=== PATIENT | female | born 1970 | race Caucasian/White ===

== ENCOUNTER 2023-04-13 11:20 | Outpatient (OUT) | payer OTHER, SELFPAY ==
--- NOTE | 2023-04-13 11:56 | US_ITS ---
The [address] [address] Patient Name: GREG FIELD MRN: [id number] date: 1970 Sex: F Assigned Patient Location: US Current Patient Location: US Accession/Order Number: [id number] Exam Date: 04/13/2023 12:00 Report Date: 04/13/2023 13:01 At the request of: MAGDIEL HOLT Procedure: US soft tissue head and neck EXAM: US soft tissue head and neck HISTORY: Lump in neck R22.1 ; left neck lump and swelling COMPARISON: None. TECHNIQUE: Percutaneous ultrasound evaluation. FINDINGS: Several small lymph nodes within left side of neck. A larger 1.8 x 0.7 x 1.0 cm lymph node within the upper left neck has a normal fatty hilum and thin cortex; likely a normal jugulodigastric lymph node. No appreciable mass or fluid collection. IMPRESSION: 1. No acute or specific findings to account for patient's symptoms. Consider CT neck soft tissue with IV contrast study if symptoms persist. Electronically authenticated by: PASTOR ESPANA Date: 04/13/2023 13:01
== END 2023-04-13 11:21 ==
LOC: US 11:24
PROVIDERS: PCP Nurse Practitioner; Visit Provider Nurse Practitioner
DX: R22.1 Localized swelling, mass and lump, neck (principal)
CPT/HCPCS: 76536

== ENCOUNTER 2023-05-15 14:29 | Emergency (ER) | payer OTHER, SELFPAY ==
[2023-05-15] VITALS (23 sets, daily range): BP systolic 134–158; BP diastolic 64–85; PULSE 68–84; RESP 6–29; TEMP 36.8; O2SAT 93–98; BMI 47.6
--- NOTE | 2023-05-15 15:00 | ED_ITS ---
HPI - SOB/Dyspnea General Chief Complaint: Shortness of Breath/Dyspnea Stated Complaint: SHORTNESS OF BREATH Time Seen by Provider: 05/15/23 14:53 Source: patient Mode of arrival: walk-in Limitations: no limitations History of Present Illness HPI Narrative: this patient's here complaining increasing shortness of breath over the last 5-7 days. She states that her clinicians believe that she has slow Covid. She said she had three times last year. She also was under the care of a construction job cost estimator who released her and told her that she has sleep apnea. She is very compliant with her CPAP device at night time but despite using it she's had increasing sleepiness and some trouble with shortness of breath. The air conditions here in the [place] of been extreme this last week and she was outside earlier last week when the symptoms started worsening. She is not known to have a coronary insufficiency, states that she had an echocardiogram that was essentially normal. She does not have a coronary stents. She does have some discomfort in her left breast area that she doesn't know if its from carrying material or underlying coronary disease but she is not known to have any of that. She is a nonsmoker. States that she does have asthma history but can't use her inhalers as she is intolerant of the medication. She's not had purulent sputum or high shaking fevers and chills. Related Data Home Medications Medication Instructions Recorded Confirmed fluoxetine 40 mg capsule 40 mg PO DAILY 05/15/23 05/15/23 furosemide 20 mg tablet 10 mg PO DAILY 05/15/23 05/15/23 gabapentin 100 mg capsule 100 mg PO .hs 05/15/23 05/15/23 metformin 500 mg tablet,extended 500 mg PO DAILY 05/15/23 05/15/23 release 24 hr nabumetone 500 mg tablet 500 mg PO BID 05/15/23 05/15/23 pantoprazole 40 mg tablet,delayed 40 mg PO DAILY 05/15/23 05/15/23 release Allergies Allergy/AdvReac Type Severity Reaction Status Date / Time influenza A (H1N1) virus AdvReac Mild Verified 05/15/23 14:44 vaccine m-chani-split 2008 [From influenza A (H1N1)] Tetanus Vaccines and Toxoid AdvReac Mild Verified 05/15/23 14:44 PFSH PFSH Social History Smoking status: Never smoker Exam Narrative Exam Narrative: awake alert good historian does not appear ill freely ambulates in the room and hallway. I will signs as noted show pulse oximetry ninety-six ninety-seven percent on room air. HEENT shows no evidence of pallor or anemia. Head and neck are atraumatic and normocephalic. Respiratory I auscultated twice and she did not have a wheeze rales or rhonchi. Chest rises with symmetry. No evidence chest wall contusions or injury. Back shows no evidence of shingles or thoracic contusions or bruises or injury to the thoracic cage. Extremities show no evidence of edema there is no venous cords is no evidence of phlebitis. Peripheral perfusion seems adequate. Constitutional Vital Signs - 24 hr 05/15/23 14:40 05/15/23 14:53 05/15/23 14:39 Temperature 98.2 F Pulse Rate 81 Pulse Rate [Monitor] 84 Respiratory Rate 22 18 Blood Pressure Blood Pressure [Right Arm] 141/85 H Pulse Oximetry 98 97 98 Oxygen Delivery Method Room Air Room Air 05/15/23 14:40 05/15/23 14:40 05/15/23 14:50 Temperature Pulse Rate 81 84 Pulse Rate [Monitor] Respiratory Rate 29 H 20 Blood Pressure 141/85 H 134/75 H Blood Pressure [Right Arm] Pulse Oximetry 97 97 Oxygen Delivery Method Course Vital Signs Vital signs: Vital Signs Pulse Rate 81 05/15/23 14:39 Respiratory Rate 18 05/15/23 14:39 Pulse Oximetry 98 05/15/23 14:39 Temperature 98.2 F 05/15/23 14:40 Pulse Rate 84 05/15/23 14:40 Respiratory Rate 20 05/15/23 14:40 Blood Pressure 134/75 H 05/15/23 14:50 Pulse Oximetry 97 05/15/23 14:53 Oxygen Delivery Method Room Air 05/15/23 14:53 MDM - SOB/Dyspnea MDM Narrative Medical decision making narrative: patient's laboratory testing and x-ray imaging were reviewed with her. Radiologi thought there is some pulmonary vascular congestion all over her BNP is normal, there is no JVD, there is no leg edema, her lungs are clear to auscultation. Clinically I do not believe she has a congestive heart failure although there may be some cardiomegaly on this portable chest x-ray. A d-dimer was added to be sure that there is no likelihood even though she has low risk factors for pulmonary embolism the d-dimer was done and has in fact negative. I do not have a good etiology for this with the exception of recent environmental conditions with smoke in the community has been terrible and this all started after she had been outside in that environment. He do not believe she needs any supplemental oxygen or further workup at this time. She was dismissed recently from the care of our local pulmonary doctor. Discharge Plan Discharge Chief Complaint: Shortness of Breath/Dyspnea Clinical Impression: Acute dyspnea Patient Disposition: Home, Self-Care Time of Disposition Decision: 17:54 Prescriptions / Home Meds: No Action fluoxetine 40 mg capsule 40 mg PO DAILY pantoprazole 40 mg tablet,delayed release (DR/EC) 40 mg PO DAILY furosemide 20 mg tablet 10 mg PO DAILY gabapentin 100 mg capsule 100 mg PO .hs metformin 500 mg tablet extended release 24 hr 500 mg PO DAILY nabumetone 500 mg tablet 500 mg PO BID Instructions: Dyspnea (ED) Additional Instructions: follow-up with her primary care doctor, stay inside while air conditions are bad Stand Alone Forms: Portal Instructions Referrals: Melani Deras [Primary Care Provider] - 1 week
--- NOTE | 2023-05-15 15:02 | ECG_ITS ---
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
--- NOTE | 2023-05-15 15:02 | XR_ITS ---
The [address] [address] Patient Name: GREG FIELD MRN: [id number] date: 1970 Sex: F Assigned Patient Location: ER Current Patient Location: ER Accession/Order Number: [id number] Exam Date: 05/15/2023 15:10 Report Date: 05/15/2023 15:38 At the request of: JE VARELA Procedure: XR chest 1V EXAM: XR chest 1V HISTORY: pain COMPARISON: None. TECHNIQUE: AP portable study FINDINGS: There is cardiomegaly. Pulmonary vascularity is borderline prominent. Increased interstitial markings are noted bilaterally. Pleural spaces are clear. Bony structures are unremarkable. IMPRESSION: Cardiomegaly with borderline pulmonary vascular congestion and interstitial infiltrates in a pattern consistent with early CHF. Electronically authenticated by: Jasson CHRISTENSEN Date: 05/15/2023 15:38
[2023-05-15 15:39] LABS: Basophils Percent Auto 0.4 % (0.2-2.0); Eosinophils Absolute Auto 0.1 10^3/uL (0.0-0.7); Eosinophils Percent Auto 0.9 % (0.9-7.0); Hematocrit 40.2 % (36.0-48.0); Hemoglobin 13.6 g/dL (12.0-16.0); Immature Granulocytes Abs Auto 0.03 10^3/uL (0.00-0.03); Immature Granulocytes Pct Auto 0.4 % (0.0-0.5); Lymphocytes Absolute Auto 1.9 10^3/uL (1.2-3.8); Lymphocytes Percent Auto 28.9 % (20.5-60.0); Mean Corpuscular HGB Conc 33.8 g/dL (29.9-35.2); Mean Corpuscular Hemoglobin 30.2 pg (26.7-34.0); Mean Corpuscular Volume 89.1 fL (81.0-99.0); Mean Platelet Volume 10.3 fL (9.5-13.5); Monocytes Absolute Auto 0.4 10^3/uL (0.3-0.8); Monocytes Percent Auto 6.1 % (1.7-12.0); Neutrophils Absolute Auto 4.2 10^3/uL (1.4-6.5); Neutrophils Percent Auto 63.3 % (43.0-75.0); Platelet Count 306 10^3/uL (150-450); Red Blood Count 4.51 10^6/uL (4.20-5.40); Red Cell Distribution Width 12.6 % (11.0-15.0); White Blood Count 6.7 10^3/uL (4.0-11.0)
[2023-05-15 15:58] LABS: BUN Creatinine Ratio 13.6; Calcium 9.5 mg/dL (8.5-10.1); Carbon Dioxide 27.8 mmol/L (21.0-32.0); Chloride 103 mmol/L (98-107); Estimated GFR (African America >60 (>=60); Estimated GFR (Non-African Ame >60 (>=60); Glucose 137 mg/dL (74-106); Potassium 3.8 mmol/L (3.5-5.1); Sodium 138 mmol/L (136-145); Troponin I High Sensitivity <4.0 pg/mL (4.0-51.3)
== END 2023-05-15 18:15 | disposition home or self-care (01) ==
PROVIDERS: Emergency Provider Emergency Medicine Emergency Medical Services; PCP Nurse Practitioner
DX: R06.00 Dyspnea, unspecified (principal); Z86.16 Personal history of COVID-19; G47.30 Sleep apnea, unspecified; J45.909 Unspecified asthma, uncomplicated; Z79.899 Other long term (current) drug therapy; Z79.84 Long term (current) use of oral hypoglycemic drugs
CPT/HCPCS: 36415; 71045; 80048; 83880; 84484; 85025; 85378; 93005; 99285

== ENCOUNTER 2023-09-23 07:12 | Emergency (ER) | payer OTHER, SELFPAY ==
[2023-09-23 07:17] VITALS: BP 154/91; PULSE 108; RESP 24; TEMP 36.7; O2SAT 97; BMI 49.4
[2023-09-23] MEDS: LORAZEPAM 0.5 MG TABLET PO (07:21)
[2023-09-23 07:38] VITALS: BP 139/60; PULSE 109; RESP 24; O2SAT 100
--- NOTE | 2023-09-23 07:44 | ED_ITS ---
HPI - Anxiety General Chief Complaint: Anxiety Stated Complaint: GENERAL WEAKNESS Time Seen by Provider: 09/23/23 07:13 Source: patient Mode of arrival: ambulance History of Present Illness HPI narrative: Patient arrived by EMS for evaluation after having a panic attack this morning. She told EMS and our ED staff that she had a lot going on at home . She takes anti-depressant medication but nothing for breakthrough anxiety. She complained of cramping in her legs. She was anxious and hyperventilating on arrival. Related Data Home Medications Medication Instructions Recorded Confirmed fluoxetine 40 mg capsule 40 mg PO DAILY 05/15/23 05/15/23 furosemide 20 mg tablet 10 mg PO DAILY 05/15/23 05/15/23 gabapentin 100 mg capsule 100 mg PO .hs 05/15/23 05/15/23 metformin 500 mg tablet,extended 500 mg PO DAILY 05/15/23 05/15/23 release 24 hr nabumetone 500 mg tablet 500 mg PO BID 05/15/23 05/15/23 pantoprazole 40 mg tablet,delayed 40 mg PO DAILY 05/15/23 05/15/23 release Previous Rx's Medication Instructions Recorded hydralazine 25 mg tablet 25 mg PO Q12H PRN anxiety #20 tabs 09/23/23 hydroxyzine HCl 25 mg tablet 25 mg PO Q12H PRN anxiety #20 tabs 09/23/23 Allergies Allergy/AdvReac Type Severity Reaction Status Date / Time influenza A (H1N1) virus AdvReac Mild Verified 05/15/23 14:44 vaccine m-chani-split 2008 [From influenza A (H1N1)] Tetanus Vaccines and Toxoid AdvReac Mild Verified 05/15/23 14:44 [facility] Social History Smoking status: Never smoker Exam Narrative Exam Narrative: Nurses notes and vital signs reviewed and patient is not hypoxic. afebrile General: Anxious, hyperventilating and acutely distressed. Skin: Warm, dry, no pallor noted. Eye: Pupils are equal, round and EOMI. No scleral icterus. Cardiovascular: Regular Rate and Rhythm without murmur, gallop or rub. Respiratory: No accessory muscle use or respiratory distress. Lungs are clear to auscultation, no wheezing, rales or rhonchi Musculoskeletal: normal ROM Neurological: A&O x4. No cranial nerve dysfunction observed. No truncal ataxia. Moves all extremities. Sensation intact. Psychiatric: Cooperative and interactive. Anxious. Constitutional Vital Signs, click to edit/add: Last Vital Signs Temp 98.1 F 09/23/23 07:17 Pulse 109 H 09/23/23 07:38 Resp 24 09/23/23 07:38 BP 139/60 09/23/23 07:38 Pulse Ox 100 09/23/23 07:38 O2 Del Method Room Air 09/23/23 07:17 Course Vital Signs Vital signs: Vital Signs Temperature 98.1 F 09/23/23 07:17 Pulse Rate 108 H 09/23/23 07:17 Respiratory Rate 24 09/23/23 07:17 Blood Pressure 154/91 H 09/23/23 07:17 Pulse Oximetry 97 09/23/23 07:17 Oxygen Delivery Method Room Air 09/23/23 07:17 Temperature 98.1 F 09/23/23 07:17 Pulse Rate 109 H 09/23/23 07:38 Respiratory Rate 24 09/23/23 07:38 Blood Pressure 139/60 09/23/23 07:38 Pulse Oximetry 100 09/23/23 07:38 Oxygen Delivery Method Room Air 09/23/23 07:17 MDM - Anxiety MDM Narrative Medical decision making narrative: The patient was given ativan orally. BMP was normal. Patient felt better after ED treatment and was discharged home with prescription for hydroxyzine. The hydralazine was incorrectly sent to pharmacy - I called and notified the pharmacist of the mistake and that the hydralazine was not to be given. Lab Data Attestation: I reviewed the patient's lab results. Labs: Lab Results 09/23/23 Range/Units 07:29 Sodium 138 (136-145) mmol/L Potassium 3.7 (3.5-5.1) mmol/L Chloride 101 (98-107) mmol/L Carbon Dioxide 23.1 (21.0-32.0) mmol/L Anion Gap 17.6 BUN 11.0 (7.0-18.0) mg/dL Creatinine 0.82 (0.55-1.02) mg/dL Est GFR ( Amer) >60 (>=60) Est GFR (Non-Af Amer) >60 (>=60) BUN/Creatinine Ratio 13.4 Glucose 252 H (74-106) mg/dL Calcium 8.9 (8.5-10.1) mg/dL Discharge Plan Discharge Chief Complaint: Anxiety Clinical Impression: Acute anxiety Patient Disposition: Home, Self-Care Time of Disposition Decision: 08:39 Prescriptions / Home Meds: New hydralazine 25 mg tablet 25 mg PO Q12H PRN (Reason: anxiety) Qty: 20 0RF hydroxyzine HCl 25 mg tablet 25 mg PO Q12H PRN (Reason: anxiety) Qty: 20 0RF No Action fluoxetine 40 mg capsule 40 mg PO DAILY pantoprazole 40 mg tablet,delayed release (DR/EC) 40 mg PO DAILY furosemide 20 mg tablet 10 mg PO DAILY gabapentin 100 mg capsule 100 mg PO .hs metformin 500 mg tablet extended release 24 hr 500 mg PO DAILY nabumetone 500 mg tablet 500 mg PO BID Instructions: Anxiety (ED) Stand Alone Forms: Portal Instructions [facility]errals: [facility] [Physician] - As soon as possible Melani Deras NP [Primary Care Provider] - 1 week
[2023-09-23 07:50] LABS: Anion Gap 17.6; BUN Creatinine Ratio 13.4; Calcium 8.9 mg/dL (8.5-10.1); Carbon Dioxide 23.1 mmol/L (21.0-32.0); Chloride 101 mmol/L (98-107); Estimated GFR (African America >60 (>=60); Estimated GFR (Non-African Ame >60 (>=60); Glucose 252 mg/dL (74-106); Potassium 3.7 mmol/L (3.5-5.1); Sodium 138 mmol/L (136-145)
[2023-09-23 08:31] VITALS: BP 141/68; PULSE 96; RESP 20; O2SAT 100
== END 2023-09-23 08:48 | disposition home or self-care (01) ==
PROVIDERS: Emergency Provider Emergency Medicine; PCP Nurse Practitioner
DX: F41.9 Anxiety disorder, unspecified (principal); Z79.899 Other long term (current) drug therapy; Z79.84 Long term (current) use of oral hypoglycemic drugs
CPT/HCPCS: 36415; 80048; 99283

== ENCOUNTER 2024-05-19 12:40 | Emergency (ER) | payer OTHER, SELFPAY ==
[2024-05-19] VITALS (24 sets, daily range): BP systolic 176; BP diastolic 104; PULSE 63–75; TEMP 36.8; O2SAT 94–100; BMI 49.4
--- OUTSIDE RECORDS SUMMARY | 2024-05-19 12:45 | XMS_ITS | CCD ---
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 Name Role Phone Unavailable Primary Care Provider UnavailSelene Garrison Unavailable Rose De Unavailable Unavailable Primary Care Provider UnavailRicardo Sands Attending Unavailable Ricardo Ricardo Admitting Unavailable NadMahesh walters Primary Care Unavailable Unavailable Primary Care Provider Unavailcolby hua AICHHOLZ, FEATHER MIXER MAGDIEL Primary Care Unavailable AICHHOLZ, FEATHER MIXER MAGDIEL Attending Unavailable AICHHOLZ, FEATHER MIXER MAGDIEL Admitting Unavailable AICHHOLZ, FEATHER MIXER MAGDIEL Consulting Unavailable AICHHOLZ, FEATHER MIXER MAGDIEL Consulting Unavailable AICHHOLZ, FEATHER MIXER MAGDIEL Attending Unavailable AICHHOLZ, FEATHER MIXER MAGDIEL Admitting Unavailable AICHHOLZ, FEATHER MIXER MAGDIEL Primary Care Unavailable AICHHOLZ, FEATHER MIXER MAGDIEL Primary Care Unavailable LEES ., DR RADHA Hua Attending Unavailable LEES ., DR RADHA Hua Admitting Unavailable LEES .DR RADHA Consulting Unavailable MARCOS NEWBERRY Consulting Unavailable SERAFIN, MAGDIEL Consulting Unavailable VANESSA MARTINEZ Unavailable AICHHOLZ, FEATHER MIXER MAGDIEL Admitting Unavailable AICHHOLZ, FEATHER MIXER MAGDIEL Primary Care Unavailable AICHHOLZ, FEATHER MIXER MAGDIEL Attending Unavailable DR VANESSA PRESLEY V Consulting Unavailable AICHHOLZ, FEATHER MIXER MAGDIEL Consulting Unavailable AICHHOLZ, FEATHER MIXER MAGDIEL Admitting Unavailable AICHHOLZ, FEATHER MIXER MAGDIEL Primary Care Unavailable AICHHOLZ, FEATHER MIXER MAGDIEL Consulting Unavailable AICHHOLZ, FEATHER MIXER MAGDIEL Attending Unavailable AICHHOLZ, FEATHER MIXER MAGDIEL Attending Unavailable AICHHOLZ, FEATHER MIXER MAGDIEL Admitting Unavailable DR VANESSA PRESLEY V Consulting Unavailable AICHHOLZ, FEATHER MIXER MAGDIEL Primary Care Unavailable AICHHOLZ, FEATHER MIXER MAGDIEL Consulting Unavailable AICHHOLZ, FEATHER MIXER MAGDIEL Admitting Unavailable AICHHOLZ, FEATHER MIXER MAGDIEL Consulting Unavailable AICHHOLZ, FEATHER MIXER MAGDIEL Attending Unavailable AICHHOLZ, FEATHER MIXER MAGDIEL Primary Care Unavailable SAMSA ., SLADE Attending Unavailable SAMSA ., SLADE Admitting Unavailable AICHHOLZ, FEATHER MIXER MAGDIEL Primary Care Unavailable DR PASTOR ESPANA Consulting Unavailable SAMSA ., SLADE Consulting Unavailable AICHHOLZ, FEATHER MIXER MAGDIEL Admitting Unavailable AICHHOLZ, FEATHER MIXER MAGDIEL Consulting Unavailable AICHHOLZ, FEATHER MIXER MAGDIEL Attending Unavailable AICHHOLZ, FEATHER MIXER MAGDIEL Primary Care Unavailable AICHHOLZ, FEATHER MIXER MAGDIEL Primary Care Unavailable PAY ., DR BECK Attending Unavailable PAY ., DR BECK Admitting Unavailable PAY ., DR BECK Consulting Unavailable GRECHNY ., KARTHIKEYAN KLINE Consulting Unavailabl e AICHHOLZ, FEATHER MIXER MAGDIEL Primary Care Unavailable ANTONIA ., KARTHIKEYAN KLINE Consulting Unavailabl e LENIN ., ALEJANDRA Attending Unavailable LENIN ., ALEJANDRA Admitting Unavailable LENIN ., ALEJANDRA Admitting Unavailable AICHHOLZ, FEATHER MIXER MAGDIEL Primary Care Unavailable MARCOS NEWBERRY Consulting Unavailable LENIN ., ALEJANDRA Attending Unavailable LENIN ., ALEJANDRA Consulting Unavailable PROVIDER, UNKNOWN Attending Unavailable PROVIDER, UNKNOWN Admitting Unavailable PATIENT, SELF Referring Unavailable FRACISCO SKAGGS Attending Unavailable Unavailable Primary Care Provider UnavailRAMONE Andrade Attending Unavailable KRISTEN BRONSON Attending Unavailable EBEN DUQUE Attending Unavailab le AICHHOLZ, MAGDIEL Referring Unavailable RAMONE LORENZANA Attending Unavailable KRISTEN BRONSON Attending Unavailable RAMONE LORENZANA Attending Unavailable RAMONE LORENZANA Referring Unavailable AICHHOLZ, MAGDIEL Attending Unavailable JOSH PARKINSON Attending Unavailable RAMONE LORENZANA Attending Unavailable AICHHOLZ, MAGDIEL Attending Unavailable Allergies Allergy Classification Reported Allergen(s) Allergy Type Date of Onset Reaction(s) Facility (10 sources) Tetanus vaccine; Translations: [TETANUS TOXOIDS] Propensity to adverse reactions to drug 2 Asthma [facility] Work Phone: (1 source) Allopurinol Drug Allergy 3 [facility] Repository (1 source) TETANUS AND DIPHTHERIA TOXOIDS; Translations: [TETANUS AND DIPHTHERIA TOXOIDS] Propensity to adverse reactions to drug (disorder) 2 [facility] Repository Medications Current Medications Medication Drug Class(es) Dates Sig (Normalized) Sig (Original) [id number] 200 actuat albuterol 0.09 mg/actuat metered dose inhaler (3 sources) beta2-Adrenergic Agonist Start: 06-26-2021 take 2 puff(s) by inhalation every four hours as needed Albuterol Sulfate HFA 108 (90 Base) MCG/ACT 2 puffs as needed Inhalation every 4 hrs Jun, Active Start: 06-26-2021 take 2 puff(s) by in halation every four hours as needed Albuterol Sulfate HFA 108 (90 Base) MCG/ACT 2 puffs as needed Inhalation every 4 hrs Jun, Active take 2 puff(s) by in halation every four hours for wheezing albuterol HFA 90 mcg/act inhaler Inhale 2 puffs every 4 (four) hours if needed for wheezing 0 Active aspirin 81 mg delayed release oral tablet (5 sources) Platelet Aggregation Inhibitor, Nonsteroidal Anti-inflammatory Drug take 1 tablet by mouth once daily aspirin 81 MG enteric coated tablet Take 81 mg by mouth daily. 0 Active Benadryl Allergy (2 sources) Benadryl Allergy Active biotin 10 mg oral capsule (4 sources) Start: 09-28-20 End: 12-27-19 24 take 1 capsule by mouth in the morning biotin 10 MG capsule Indications: Myalgia , Numbness and tingling , Weakness Take 1 capsule (10 mg) by mouth in the morning and 1 capsule (10 mg) before bedtime. 60 capsule 2 09/28/2023 12/27/2023 Active cetirizine hydrochloride 10 mg oral tablet (10 sources) Histamine-1 Receptor Antagonist take 1 tablet by mouth in the morning cetirizine (ZyrTEC) 10 MG tablet Take 10 mg by mouth in the morning. 0 Active ZyrTEC Allergy A ctive cholecalciferol 0.025 mg oral capsule (1 source) Vitamin D take 1 capsule by mouth once daily cholecalciferol (Vitamin D-3) 25 MCG (1000 UT) capsule Take 1 capsule every day by oral route. 0 Active cyproheptadine hydrochloride 4 mg oral tablet (1 source) Start: End: take 0.5 tablet by mouth in the morning cyproheptadine (Periactin) 4 MG tablet Indications: Dizziness Take 0.5 tablets (2 mg) by mouth in the morning and 0.5 tablets (2 mg) before bedtime. 30 tablet 2 12/07/2023 03/06/2024 Active docusate sodium 100 mg oral capsule (4 sources) take 1 capsule by mouth in the morning docusate sodium (Colace) 100 MG capsule Indications: Constipation Take 100 mg by mouth in the morning. 0 Active [id number] 0.3 ml EPINEPHrine 1 mg/ml auto-injector (4 sources) alpha-Adrenergic Agonist, beta-Adrenergic Agonist, Catecholamine EPINEPHrine (Epipen) 0.3 MG/0.3ML injection syringe Inject 1 Syringe as directed 1 (one) time Inject into upper leg. Call 911 after use. 0 Active FLUoxetine 40 mg oral capsule (11 sources) Serotonin Reuptake Inhibitor take 1 capsule by mouth in the morning FLUoxetine (PROzac) 40 MG capsule Indications: Depressive Phase Bipolar Mood Disorder Take 40 mg by mouth in the morning. 0 Active take 1 capsule by mouth once nam ly fluoxetine (PROZAC) 20 MG capsule Take 20 mg by mouth daily. 0 Active PROzac Active furosemide 20 mg oral tablet (6 sources) Loop Diuretic take 1 tablet by mouth once daily as needed furosemide (Lasix) 20 MG tablet Indications: Hypertension Take 20 mg by mouth Daily as needed 0 Active take 10 mg by mouth in the [facility] furosemide (Lasix) 10 MG/ML solution Indications: Hypertension Take 10 mg by mouth in the morning. 0 Active Lasix Active gabapentin 100 mg oral capsule (6 sources) Anti-epileptic Agent take 1 capsule by mouth at bedtime gabapentin (Neurontin) 100 MG capsule Indications: Neuropathic Pain Take 100 mg by mouth at bedtime. 0 Active Gabapentin Activ e hydrOXYzine hydrochloride 25 mg oral tablet (1 source) Antihistamine Start: 09-23-2023 take 1 tablet by mouth every twelve hours for anxiety hydrOXYzine HCl (Atarax) 25 MG tablet take 1 tablet by mouth every 12 hours if needed for anxiety 0 09/23/2023 Active lamoTRIgine (1 source) Mood Stabilizer, Anti-epileptic Agent lamoTRIgine Active LORazepam 0.5 mg oral tablet (1 source) Benzodiazepine take 1 tablet by mouth every six hours as needed LORazepam (Ativan) 0.5 MG tablet Take 0.5 mg by mouth every 6 (six) hours if needed. 0 Active Magnesium (2 sources) Magnesium Active magnesium oxide 400 mg oral tablet (4 sources) Start: 09-28-2023 End: 12-19-2024 take 1 tablet by mouth at bedtime magnesium oxide (Mag-Ox) 400 mg tablet Indications: Myalgia , Numbness and tingling , Weakness Take 1 tablet (400 mg) by mouth at bedtime 90 tablet 3 12/20/2023 12/19/2024 Active 24 hr metFORMIN hydrochloride 500 mg extended release oral tablet (12 sources) Biguanide take 1 tablet by mouth every twenty-four hours in the morning metFORMIN XR (Glucophage-XR) 500 MG 24 hr tablet Take 500 mg by mouth in the morning. 0 Active take 1 tablet by mouth once nelda y metformin (GLUCOPHAGE-XR) 500 MG XR tablet Take 500 mg by mouth daily. 0 Active metFORMIN HCl Ac tive nabumetone 500 mg oral tablet (12 sources) Nonsteroidal Anti-inflammatory Drug Start: 12-11-2023 End: 01-10-2024 take 1 tablet by mouth twice daily as needed for pain nabumetone (Relafen) 500 MG tablet Indications: Other chronic pain Take 1 tablet (500 mg) by mouth 2 (two) times a day as needed for moderate pain 60 tablet 1 12/11/2023 01/10/2024 Active Nabumetone Activ e take 1 tablet by mouth twice nam ly nabumetone 500 MG tablet Take 500 mg by mouth 2 times daily. 0 Active Nabumetone Not-T aking Naltrexone (4 sources) Opioid Antagonist Start: 12-06-2023 End: 01-05-2024 Naltrexone HCl powder Indications: Idiopathic progressive neuropathy , Weakness 3 mg at bedtime 30 g 11 12/06/2023 01/05/2024 Active nystatin [id number] unt/ml oral suspension (1 source) Polyene Antifungal Start: 05-31-2022 take 4 mL by mouth four times daily Nystatin [id number] UNIT/ML 4 ml swish and spit Mouth/Throat Four times a day for 14 days May, Active pantoprazole 40 mg delayed release oral tablet (12 sources) Proton Pump Inhibitor take 1 tablet by mouth in the morning pantoprazole (ProtoNix) 40 MG EC tablet Take 40 mg by mouth in the morning. 0 Active Protonix Active predniSONE 20 mg oral tablet (5 sources) Start: 05-31-2022 take 1 tablet by beth th every twenty-four hours prednisone 20 MG 1 tablet Orally daily for 3 days May, Active Start: 09-10-2021 take 1 tablet by beth th every twelve hours predniSONE 20 MG 1 tablet Orally bid for 5 day(s) Aug, Active vitamin B12 (2 sources) Vitamin B12 Vitamin B12 Acti ve Completed/Discontinued Medications Medication Drug Class(es) Dates Sig (Normalized) Sig (Original) celecoxib (3 sources) Nonsteroidal Anti-inflammatory Drug CeleBREX Not-Taki ng CeleBREX Active dextromethorphan hydrobromide 1.5 mg/ml / pyrilamine maleate 1.5 mg/ml oral solution (3 sources) Uncompetitive D-oikfsi-O-aspartate Receptor Antagonist, Sigma-1 Agonist Start: 06-26-2021 [place] DM 7.5-7.5 MG/5ML 10 ml Orally every 6-8 hours as needed for 8 days Jun, Not-Taking methylPREDNISolone 4 mg oral tablet (3 sources) Corticosteroid Start: 06-26-2021 methylPREDNISolone 4 MG as directed Orally Once a day for 6 days Jun, Not-Taking Problems Active Problems Problem Classification Problem Date Documented Date Episodic/Chronic Abdominal pain (4 sources) Unspecified abdominal pain; Translations: [UNSPECIFIED ABDOMINAL PAIN] Onset: 03-21-2023 Episodic Anxiety disorders (10 sources) Anxiety; Translations: [Anxiety disorder, unspecified] Onset: 05-19-2022 01-10-2022 Chronic Asthma (4 sources) Asthma; Translations: [Unspecified asthma, uncomplicated] Onset: 11-28-2023 11-28-2023 Chronic Esophageal disorders (4 sources) Gastroesophageal reflux disease; Translations: [Gastro-esophageal reflux disease without esophagitis] Onset: 03-14-2019 09-26-2023 Chronic Essential hypertension (5 sources) Essential (primary) hypertension; Translations: [Essential hypertension] Onset: 03-14-2019 09-26-2023 Chronic Genitourinary symptoms and ill-defined conditions (3 sources) Unspecified symptoms and signs involving the genitourinary system; Translations: [UNS SYMPTOMS SIGNS INVLV SYSTEM] Onset: 01-23-2023 Episodic Gout and other crystal arthropathies (1 source) Gout, unspecified; Translations: [GOUT UNSPECIFIED] Onset: 01-25-2023 Chronic Joint disorders and dislocations; trauma-related (4 sources) Chondromalacia of left patella; Translations: [Chondromalacia patellae, left knee] Onset: 09-26-2023 09-26-2023 Chronic Joint disorders and dislocations; trauma-related (8 sources) Tear of medial meniscus of knee; Translations: [Other tear of medial meniscus, current injury, left knee, initial encounter] Onset: 03-14-2019 09-26-2023 Episodic Malaise and fatigue (1 source) Chronic fatigue, unspecified; Translations: [CHRONIC FATIGUE UNSPECIFIED] Onset: 01-25-2023 Chronic Malaise and fatigue (10 sources) Weakness; Translations: [Other fatigue] Onset: 05-04-2022 Episodic Mood disorders (9 sources) Bipolar II disorder, most recent episode major depressive; Translations: [Bipolar II disorder] Onset: 03-14-2019 07-24-2023 Chronic Nutritional deficiencies (2 sources) Vitamin D deficiency, unspecified; Translations: [Vitamin D deficiency, unspecified] Onset: 05-23-2023 Chronic Osteoarthritis (4 sources) Osteoarthrosis of the carpometacarpal joint of the thumb; Translations: [Osteoarthritis of first carpometacarpal joint, unspecified] Onset: 03-14-2019 09-26-2023 Chronic Other aftercare (1 source) Other long goods drier (current) drug therapy; Translations: [OTH SHELTER CURRENT DRUG THERAPY] Onset: 01-25-2023 Episodic Other aftercare (1 source) custodial (current) use of oral hypoglycemic drugs; Translations: [SECURITY AND COMPLIANCE 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 MANAGER USE ORAL HYPOGLYCEMIC DX] Onset: 01-25-2023 Episodic Other connective tissue disease (5 sources) Muscle pain; Translations: [Myalgia, unspecified site] Onset: 09-28-2023 09-28-2023 Episodic Other connective tissue disease (1 source) Cramp; Translations: [Cramp and spasm] Onset: 12-21-2023 12-21-2023 Episodic Other infections; including parasitic (2 sources) Post-viral disorder; 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 Other lower respiratory disease (1 source) Dyspnea; Translations: [Shortness of breath] Episodic Other lower respiratory disease (1 source) Other forms of dyspnea; Translations: [Other respiratory abnormalities] Onset: 12-21-2023 12-21-2023 Episodic Other nervous system disorders (4 sources) Chronic pain; Translations: [Other chronic pain] Onset: 09-26-2023 09-26-2023 Chronic Other nervous system disorders (4 sources) Neuropathy; Translations: [Idiopathic progressive neuropathy] Onset: 09-28-2023 09-28-2023 Chronic Other nervous system disorders (5 sources) Numbness and tingling sensation of skin; Translations: [Anesthesia of skin] Onset: 09-28-2023 09-28-2023 Episodic Other non-traumatic joint disorders (4 sources) Pain in left knee; Translations: [Pain in joint, lower leg] Onset: 09-26-2023 09-26-2023 Episodic Other nutritional; endocrine; and metabolic disorders (1 source) Morbid (severe) obesity due to excess calories; Translations: [MORBID SEVERE OBES D/T EXCESS ELENA] Onset: 01-25-2023 Chronic Other nutritional; endocrine; and metabolic disorders (1 source) Body mass index (BMI) 45.0-49.9, adult; Translations: [BODY MASS INDEX BMI 45.0-49.9 ADULT] Onset: 01-25-2023 Chronic Other nutritional; endocrine; and metabolic disorders (4 sources) Morbid obesity; Translations: [Morbid (severe) obesity due to excess calories] Onset: 03-14-2019 09-26-2023 Chronic Other skin disorders (1 source) Localized swelling, mass and lump, neck; Translations: [LOCALIZED SWELLING MASS AND LUMP NECK] Onset: 01-16-2023 Episodic Residual codes; unclassified (4 sources) Obstructive sleep apnea (adult) (pediatric); Translations: [OBSTRUCTIVE SLEEP APNEA] Onset: 07-19-2022 Chronic Residual codes; unclassified (1 source) Idiopathic hypersomnia with long sleep time; Translations: [IDIO HYPERSOMNIA W/LONG SLEEP TIME] Onset: 07-24-2022 Chronic Spondylosis; intervertebral disc disorders; other back problems (5 sources) Sciatica, left side; Translations: [Lumbar radiculopathy] Onset: 11-23-2023 Episodic Unclassified (1 source) R10.11 - Right upper quadrant pain; Translations: [R10.11 - Right upper quadrant pain] Onset: 12-28-2021 Unclassified (1 source) PERSONAL HISTORY OF COVID-19; Translations: [PERSONAL HISTORY OF COVID-19] Onset: 01-25-2023 Unclassified (1 source) CONTACT W/AND (SUSP) EXPOS COVID-19; Translations: [CONTACT W/AND (SUSP) EXPOS COVID-19] Onset: 05-19-2022 Unclassified (1 source) Post covid-19 condition, unspecified; Translations: [Post covid-19 condition, unspecified] Onset: 07-05-2022 Past or Other Problems Problem Classification Problem Date Documented Da te Episodic/Chronic Diabetes mellitus without complication (8 sources) Hyperglycemia, unspecified; Translations: [Prediabetes] Onset: 03-14-2019 Episodic Fluid and electrolyte disorders (2 sources) Hypokalemia; Translations: [Dehydration] Onset: 07-04-2022 Episodic Immunizations and screening for infectious disease (1 source) Contact with and (suspected) exposure to other viral communicable diseases; Translations: [Contact with and (suspected) exposure to other viral communicable diseases Z20.828] Onset: 09-10-2021 Resolved: 09-10-2021 Episodic Mycoses (1 source) Candidal stomatitis Onset: 05-31-2022 Resolved: 05-31-2022 Episodic Nonspecific chest pain (6 sources) Chest pain; Translations: [Chest pain, unspecified] Onset: 07-05-2022 Episodic Other aftercare (1 source) terminal system operator (current) use of aspirin; Translations: [SECURITY AND COMPLIANCE PROJECT MANAGER CURRENT USE OF ASPIRIN] Onset: 07-04-2022 Episodic Other female genital disorders (4 sources) Lesion of cervix; Translations: [Noninflammatory disorder of cervix uteri, unspecified] Onset: 03-14-2019 09-26-2023 Episodic Other gastrointestinal disorders (4 sources) Change in bowel habit; Translations: [CHANGE IN BOWEL HABIT] Onset: 06-04-2022 Episodic Other injuries and conditions due to external causes (4 sources) At low risk for fall; Translations: [History of falling] Onset: 03-14-2019 09-26-2023 Episodic Other lower respiratory disease (4 sources) Other nonspecific abnormal finding of lung field; Translations: [OTH NONSPECIFIC ABN FIND LNG FIELD] Onset: 08-09-2022 Episodic Other lower respiratory disease (5 sources) Dyspnea, unspecified; Translations: [DYSPNEA UNSPECIFIED] Onset: 07-11-2022 Episodic Other nervous system disorders (4 sources) Paresthesia of skin; Translations: [PARESTHESIA OF SKIN] Onset: 06-30-2022 Episodic Other non-traumatic joint disorders (4 sources) Hip pain; Translations: [Pain in unspecified hip] Onset: 03-14-2019 09-26-2023 Episodic Other non-traumatic joint disorders (4 sources) Multiple joint pain; Translations: [Pain in unspecified joint] Onset: 03-14-2019 09-26-2023 Episodic Other upper respiratory infections (1 source) Acute sinusitis, unspecified; Translations: [Acute sinusitis, recurrence not specified, unspecified location J01.90] Onset: 09-10-2021 Resolved: 09-10-2021 Episodic Residual codes; unclassified (4 sources) Edema of lower extremity; Translations: [Localized edema] Onset: 03-14-2019 09-26-2023 Episodic Unclassified (1 source) Persistent cough for 3 weeks or longer R05.3 Onset: 05-31-2022 Resolved: 05-31-2022 Results Test Name Value Interpretation Reference Range Facility Follow-Upon 05-23-2023 Follow-Up [id number] Lu Cancino 1970 F Date Provider Department Center 05/23/2023 [id number] SKAGGS [facility] Josel[facility] Family History Family history unknown: Yes Level of Service:00037 [place] OFFICE/OUTPATIENT ESTABLISHED MOD MDM 30-39 MIN Reason for Visit and Comments: Follow-up [229228] - Flare up Normal [facility] XR KUB 1 VIEWon 03-22-2023 XR KUB 1 VIEW EXAMINATION: XR KUB 1 VIEW HISTORY: Abdominal pain COMPARISON: No relevant comparison available. FINDINGS: KIDNEY/URETER - RIGHT: No visible renal or ureteral calcifications. KIDNEY/URETER - LEFT: No visible renal or ureteral calcifications. PELVIS: No visible ureteral calcifications. Any visible calcifications favor phleboliths. BOWEL: No abnormal dilation or deviation. BONES: No acute abnormality. OTHER: Negative. No abnormal gaseous collections. IMPRESSION: No acute abnormality Electronically authenticated by: VANESSA PRESLEY Date: 2023-03-22 07:45 Normal [facility] UA RANDOM W/MICROSCOPICon BACTERIA TRACE Abnormal NONE SEEN [facility] Comment on above: Performed By: #### U AMIC #### [facility] [address] [address] [address] Bertram Paulino Bilirubin Ql (U) Negative Normal NEGATIVE [facility] Comment on above: Performed By: #### U AMIC #### [facility] [address] [address] [address] Bertram Paulino CAST NONE SEEN Normal NONE SEEN [facility] Comment on above: Performed By: #### U AMIC #### [facility] [address] [address] [address] Bertram Paulino Clarity (U) CLEAR Normal CLEAR [facility] Comment on above: Performed By: #### U AMIC #### [facility] [address] [address] [address] Bertram Paulino Color (U) LT. YELLOW Normal YELLOW [facility] Comment on above: Performed By: #### U AMIC #### [facility] [address] [address] [address] Bertram Paulino Crystals LM Nom (Urine sed) NONE SEEN Normal NONE SEEN [facility] Comment on above: Performed By: #### U AMIC #### [facility] [address] [address] [address] Bertram Paulino Epithelial cells LM Ql (Urine sed) RARE Normal NONE SEEN /RARE [facility] Comment on above: Performed By: #### U AMIC #### [facility] [address] [address] [address] Bertram Paulino Glucose Ql (U) Negative Normal NEGATIVE [facility] Comment on above: Performed By: #### U AMIC #### [facility] [address] [address] [address] Bertram Paulino Hemoglobin Ql (U) Negative Normal NEGATIVE [facility] Comment on above: Performed By: #### U AMIC #### [facility] [address] [address] [address] Bertram Paulino Ketones Ql (U) Negative Normal NEGATIVE [facility] Comment on above: Performed By: #### U AMIC #### [facility] [address] [address] [address] Bertram Paulino LEUKOCYTES Negative Normal NEGATIVE [facility] Comment on above: Performed By: #### U AMIC #### [facility] [address] [place] [address] Dr. Bertram Paulino MUCOUS NONE SEEN Normal NONE SEEN [facility] Comment on above: Performed By: #### U AMIC #### [facility] [address] [address] [address] Bertram Paulino Nitrite Ql (U) Negative Normal NEGATIVE [facility] Comment on above: Performed By: #### U AMIC #### [facility] [address] [place] [address] Dr. Bertram Paulino pH (U) 8.5 [pH] Normal 5-9 [facility] Comment on above: Performed By: #### U AMIC #### [facility] [address] [place] [address] Dr. Bertram Paulino RBC 0-2 Normal 0-2 [facility] Comment on above: Performed By: #### U AMIC #### [facility] [address] [address] [address] Bertram Paulino SPEC GRAVITY 1.015 Normal 1.005-<=1.025 [facility] Comment on above: Performed By: #### U AMIC #### [facility] [address] [address] [address] Bertram Paulino UA PROTEIN Negative Normal NEGATIVE/ TRACE [facility] Comment on above: Performed By: #### U AMIC #### [facility] [address] [address] [address] Bertram Paulino Urobilinogen Qn (U) 0.2 {Yazmin'U}/dL Normal 0.2 - 1. 0 [facility] Comment on above: Performed By: #### U AMIC #### [facility] [address] [place] [address] Dr. Bertram Paulino WBC NONE SEEN Normal NONE SEEN [facility] Comment on above: Performed By: #### U AMIC #### [facility] [address] [place] [address] Dr. Bertram Paulino CBC AUTO DIFFon 01-23-2023 BASO # 0.0 103/ul Normal 0.0-0.1 [facility] Comment on above: Performed By: #### C MP, LIPID, TSH #### [facility] [address] [place] [address] Dr. Bertram Paulino Basophils/100 WBC (Bld) 0.5 % Normal 0.2-2.0 [facility] Comment on above: Performed By: #### C MP, LIPID, TSH #### [facility] [address] [place] [address] Dr. Bertram Paulino EO # 0.1 103/ul Normal 0.0-0.7 [facility] Comment on above: Performed By: #### C MP, LIPID, TSH #### [facility] [address] [place] [address] Dr. Bertram Paulino Eosinophils/100 WBC (Bld) 1.2 % Normal 0.9-7.0 [facility] Comment on above: Performed By: #### C MP, LIPID, TSH #### [facility] [address] [place] [address] Dr. Bertram Paulino Erythrocyte distribution width (RBC) [Ratio] 12.8 % Normal 11.0-15.0 [facility] Comment on above: Performed By: #### C MP, LIPID, TSH #### [facility] [address] [place] [address] Dr. Bertram Paulino Hematocrit (Bld) [Volume fraction] 38.9 % Normal 36.0-48.0 [facility] Comment on above: Performed By: #### C MP, LIPID, TSH #### [facility] [address] [place] [address] Dr. Bertram Paulino Hemoglobin (Bld) [Mass/Vol] 13.3 g/dL Normal 12.0-16.0 [facility] Comment on above: Performed By: #### C MP, LIPID, TSH #### [facility] [address] [address] [address] Bertram Paulino IG # 0.04 10e3/ul Critically high 0.00-0.03 [facility] Comment on above: Performed By: #### C MP, LIPID, TSH #### [facility] [address] [address] [address] Bertram Paulino IG % 0.5 % Normal 0.0-0.5 [facility] Comment on above: Performed By: #### C MP, LIPID, TSH #### [facility] [address] [address] [address] Bertram Paulino LYMPH # 1.9 103/ul Normal 1.2-3.8 [facility] Comment on above: Performed By: #### C MP, LIPID, TSH #### [facility] [address] [place] [address] Dr. Bertram Paulino Lymphocytes/100 WBC (Bld) 24.7 % Normal 20.5-60.0 [facility] Comment on above: Performed By: #### C MP, LIPID, TSH #### [facility] [address] [address] [address] Bertram Paulino MANUAL DIFF REQ NO Normal [facility] Comment on above: Performed By: #### C MP, LIPID, TSH #### [facility] [address] [address] [address] Bertram Paulino MCH (RBC) [Entitic mass] 30.0 pg Normal 26.7-34.0 [facility] Comment on above: Performed By: #### C MP, LIPID, TSH #### [facility] [address] [address] [address] Bertram Paulino MCHC (RBC) [Mass/Vol] 34.2 g/dL Normal 29.9-35.2 [facility] Comment on above: Performed By: #### C MP, LIPID, TSH #### [facility] [address] [address] [address] Bertram Paulino MCV (RBC) [Entitic vol] 87.6 fL Normal 81.0-99.0 [facility] Comment on above: Performed By: #### C MP, LIPID, TSH #### [facility] [address] [place] [address] Dr. Bertram Paulino MONO # 0.4 103/ul Normal 0.3-0.8 [facility] Comment on above: Performed By: #### C MP, LIPID, TSH #### [facility] [address] [place] [address] Dr. Bertram Paulino Monocytes/100 WBC (Bld) 5.3 % Normal 1.7-12.0 [facility] Comment on above: Performed By: #### C MP, LIPID, TSH #### [facility] [address] [place] [address] Dr. Bertram Paulino NEUT # 5.1 103/ul Normal 1.4-6.5 [facility] Comment on above: Performed By: #### C MP, LIPID, TSH #### [facility] [address] [place] [address] Dr. Bertram Paulino Neutrophils/100 WBC (Bld) 67.8 % Normal 43.0-75.0 [facility] Comment on above: Performed By: #### C MP, LIPID, TSH #### [facility] [address] [place] [address] Dr. Bertram Paulino Platelet mean volume (Bld) [Entitic vol] 10.7 fL Normal 9.5-13.5 [facility] Comment on above: Performed By: #### C MP, LIPID, TSH #### [facility] [address] [place] [address] Dr. Bertram Paulino PLT 270 103/ul Normal 150-450 [facility] Comment on above: Performed By: #### C MP, LIPID, TSH #### [facility] [address] [place] [address] Dr. Bertram Paulino RBC 4.44 106/ul Normal 4.20-5.40 [facility] Comment on above: Performed By: #### C MP, LIPID, TSH #### [facility] [address] [place] [address] Dr. Bertram Paulino WBC 7.5 103/ul Normal 4.0-11.0 [facility] Comment on above: Performed By: #### C MP, LIPID, TSH #### [facility] [address] [address] [address] Bertram DAIGLE URINE PROFILEon 3 Bilirubin Ql (U) Negative Normal NEGATIVE [facility] Comment on above: Performed By: #### C MP, LIPID, TSH #### [facility] [address] [address] [address] Bertram Paulino Clarity (U) CLEAR Normal CLEAR [facility] Comment on above: Performed By: #### C MP, LIPID, TSH #### [facility] [address] [address] [address] Bertram Paulino Color (U) LT. YELLOW Normal YELLOW [facility] Comment on above: Performed By: #### C MP, LIPID, TSH #### [facility] [address] [place] [address] Dr. Bertram ETIENNE A micrscopic examination will be performed if indicated. Normal [facility] Comment on above: Performed By: #### C MP, LIPID, TSH #### [facility] [address] [address] [address] Bertram Paulino Glucose Ql (U) Negative Normal NEGATIVE [facility] Comment on above: Performed By: #### C MP, LIPID, TSH #### [facility] [address] [place] [address] Dr. Bertram Paulino Hemoglobin Ql (U) Negative Normal NEGATIVE [facility] Comment on above: Performed By: #### C MP, LIPID, TSH #### [facility] [address] [address] [address] Bertram Paulino Ketones Ql (U) Negative Normal NEGATIVE [facility] Comment on above: Performed By: #### C MP, LIPID, TSH #### [facility] [address] [place] [address] Dr. Bertram Paulino LEUKOCYTES Negative Normal NEGATIVE [facility] Comment on above: Performed By: #### C MP, LIPID, TSH #### [facility] [address] [place] [address] Dr. Bertram Paulino Nitrite Ql (U) Negative Normal NEGATIVE [facility] Comment on above: Performed By: #### C MP, LIPID, TSH #### [facility] [address] [place] [address] Dr. Bertram Paulino pH (U) 7.0 [pH] Normal 5-9 [facility] Comment on above: Performed By: #### C MP, LIPID, TSH #### [facility] [address] [place] [address] Dr. Bertram Paulino SPEC GRAVITY <=1.005 Abnormal 1.005-<=1.025 [facility] Comment on above: Performed By: #### C MP, LIPID, TSH #### [facility] [address] [place] [address] Dr. Bertram Paulino UA PROTEIN Negative Normal NEGATIVE/ TRACE [facility] Comment on above: Performed By: #### C MP, LIPID, TSH #### [facility] [address] [place] [address] Dr. Bertram Paulino UR MICRO IND NOT INDICATED Normal [facility] Comment on above: Performed By: #### C MP, LIPID, TSH #### [facility] [address] [place] [address] Dr. Bertram Paulino Urobilinogen Qn (U) 0.2 {Yazmin'U}/dL Normal 0.2 - 1. 0 [facility] Comment on above: Performed By: #### C MP, LIPID, TSH #### [facility] [address] [place] [address] Dr. Bertram Paulino MONOon 01-23-2023 Monocytes (Bld) [#/Vol] Negative Normal NEGATIVE [facility] Comment on above: Performed By: #### C MP, LIPID, TSH #### [facility] [address] [place] [address] Dr. Bertram Paulino PROF 14(COMP METB)on 023 Albumin [Mass/Vol] 4.1 g/dL Normal 3.4-5.0 [facility] Comment on above: Performed By: #### H STROPN, TSH, CMP #### [facility] [address] [address] [address] Bertram Paulino Albumin/Globulin [Mass ratio] 1.2 {ratio} Normal [facility] Comment on above: Performed By: #### H STROPN, TSH, CMP #### [facility] [address] [address] [address] Bertram Paulino ALP [Catalytic activity/Vol] 71 U/L Normal 46-116 [facility] Comment on above: Performed By: #### H STROPN, TSH, CMP #### [facility] [address] [address] [address] Bertram Paulino ALT [Catalytic activity/Vol] 53 U/L Normal 14-59 [facility] Comment on above: Performed By: #### H STROPN, TSH, CMP #### [facility] [address] [address] [address] Bertram Paulino Anion gap [Moles/Vol] 8.1 mmol/L Normal [facility] Comment on above: Performed By: #### H STROPN, TSH, CMP #### [facility] [address] [address] [address] Bertram Paulino AST [Catalytic activity/Vol] 35 U/L Normal 15-37 [facility] Comment on above: Performed By: #### H STROPN, TSH, CMP #### [facility] [address] [address] [address] Bertram Paulino Bilirubin [Mass/Vol] 0.3 mg/dL Normal 0.2-1.0 [facility] Comment on above: Performed By: #### H STROPN, TSH, CMP #### [facility] [address] [address] [address] Bertram Paulino Calcium [Mass/Vol] 9.3 mg/dL Normal 8.5-10.1 [facility] Comment on above: Performed By: #### H STROPN, TSH, CMP #### [facility] [address] [address] [address] Bertram Paulino Chloride [Moles/Vol] 103 mmol/L Normal 98-107 [facility] Comment on above: Performed By: #### H STROPN, TSH, CMP #### [facility] [address] [address] [address] Bertram Paulino CO2 [Moles/Vol] 29.5 mmol/L Normal 21.0-32.0 [facility] Comment on above: Performed By: #### H STROPN, TSH, CMP #### [facility] [address] [address] [address] Bertram Paulino Creatinine [Mass/Vol] 0.62 mg/dL Normal 0.55-1.02 [facility] Comment on above: Performed By: #### H STROPN, TSH, CMP #### [facility] [address] [address] [address] Bertram Paulino EGFR-AF SOUTH AFRICAN >60 Normal >=60 [facility] Comment on above: Performed By: #### H STROPN, TSH, CMP #### [facility] [address] [address] [address] Bertram Paulino EGFR-NON AF SOUTH AFRICAN >60 Normal >=60 [facility] Comment on above: Performed By: #### H STROPN, TSH, CMP #### [facility] [address] [address] [address] Bertram Paulino Globulin (S) [Mass/Vol] 3.3 g/dL Normal [facility] Comment on above: Performed By: #### H STROPN, TSH, CMP #### [facility] [address] [address] [address] Bertram Paulino Glucose [Mass/Vol] 121 mg/dL Critically high 74-106 [facility] Comment on above: Performed By: #### H STROPN, TSH, CMP #### [facility] [address] [address] [address] Bertram Paulino Potassium [Moles/Vol] 3.6 mmol/L Normal 3.5-5.1 [facility] Comment on above: Performed By: #### H STROPN, TSH, CMP #### [facility] [address] [address] [address] Bertram Paulino Protein [Mass/Vol] 7.4 g/dL Normal 6.4-8.2 [facility] Comment on above: Performed By: #### H STROPN, TSH, CMP #### [facility] [address] [place] [address] Dr. Bertram Paulino Sodium [Moles/Vol] 137 mmol/L Normal 136-145 [facility] Comment on above: Performed By: #### H STROPN, TSH, CMP #### [facility] [address] [place] [address] Dr. Bertram Paulino Urea nitrogen [Mass/Vol] 9.0 mg/dL Normal 7.0-18.0 [facility] Comment on above: Performed By: #### H STROPN, TSH, CMP #### [facility] [address] [place] [address] Dr. Bertram Paulino Urea nitrogen/Creatinine [Mass ratio] 14.5 mg/mg Normal [facility] Comment on above: Performed By: #### H STROPN, TSH, CMP #### [facility] [address] [place] [address] Dr. Bertram Paulino PROTIMEon 01-23-2023 INR Coag (PPP) [Relative time] {INR} Normal [facility] Comment on above: Performed By: #### C MP, LIPID, TSH #### [facility] [address] [place] [address] Dr. Bertram Paulino INR GUIDELINES SEE BELOW Normal [facility] Comment on above: Result Comment: TYRA RED INR: 2.0 - 3.0 CONDITIONS NOT LISTED BELOW 2.5 - 3.5 FOR PROSTHETIC HEART VALVE REPLACEMENT 2.5 - 3.5 RECURRENT THROMBOSIS Performed By: #### C MP, LIPID, TSH #### [facility] [address] [place] [address] Dr. Bertram Paulino PT Coag (PPP) [Time] 9.6 s Normal 9.0-11.6 [facility] Comment on above: Performed By: #### C MP, LIPID, TSH #### [facility] [address] [place] [address] Dr. Bertram Paulino PTTon 01-23-2023 aPTT Coag (Bld) [Time] s Normal 22.3-36.2 [facility] Comment on above: Performed By: #### C MP, LIPID, TSH #### [facility] [address] [place] [address] Dr. Bertram Paulino TROPONIN, HIGH SENSITIVITYon 01-23-2023 HSTROP 4.8 pg/mL Normal 4.0-51.3 [facility] Comment on above: Result Comment: CUT- OFF POINTS HAVE BEEN ESTABLISHED BASED ON THE FOURTH UNIVERSAL DEFINITIONS OF MYOCARDIAL INFARCTION. THE UPPER REFERENCE LIMIT (URL) OF TROPONIN, DEFINED THE 99TH PERCENTILE OF cTnI DISTRIBUTION IN A REFERENCE POPULATION, HAS BEEN CONFIRMED THE DECISION THRESHOLD FOR AR DIAGNOSIS. Performed By: #### C MP, LIPID, TSH #### [facility] [address] [place] [address] Dr. Bertram Paulino TSHon 01-23-2023 TSH 2.684 uIU/mL Normal 0.358-3.740 [facility] Comment on above: Performed By: #### H STROPN, TSH, CMP #### [facility] [address] [place] [address] Dr. Bertram Paulino CBC AUTO DIFFon 01-12-2023 BASO # 0.0 103/ul Normal 0.0-0.1 [facility] Comment on above: Performed By: #### C MP, LIPID, TSH #### [facility] [address] [place] [address] Dr. Bertram Paulino Basophils/100 WBC (Bld) 0.5 % Normal 0.2-2.0 [facility] Comment on above: Performed By: #### C MP, LIPID, TSH #### [facility] [address] [place] [address] Dr. Bertram Paulino EO # 0.2 103/ul Normal 0.0-0.7 [facility] Comment on above: Performed By: #### C MP, LIPID, TSH #### [facility] [address] [place] [address] Dr. Bertram Paulino Eosinophils/100 WBC (Bld) 3.6 % Normal 0.9-7.0 [facility] Comment on above: Performed By: #### C MP, LIPID, TSH #### [facility] [address] [place] [address] Dr. Bertram Paulino Erythrocyte distribution width (RBC) [Ratio] 12.7 % Normal 11.0-15.0 [facility] Comment on above: Performed By: #### C MP, LIPID, TSH #### [facility] [address] [place] [address] Dr. Bertram Paulino Hematocrit (Bld) [Volume fraction] 37.6 % Normal 36.0-48.0 [facility] Comment on above: Performed By: #### C MP, LIPID, TSH #### [facility] [address] [place] [address] Dr. Bertram Paulino Hemoglobin (Bld) [Mass/Vol] 12.7 g/dL Normal 12.0-16.0 [facility] Comment on above: Performed By: #### C MP, LIPID, TSH #### [facility] [address] [place] [address] Dr. Bertram Paulino IG # 0.02 10e3/ul Normal 0.00-0.03 [facility] Comment on above: Performed By: #### C MP, LIPID, TSH #### [facility] [address] [place] [address] Dr. Bertram Paulino IG % 0.3 % Normal 0.0-0.5 [facility] Comment on above: Performed By: #### C MP, LIPID, TSH #### [facility] [address] [place] [address] Dr. Bertram Paulino LYMPH # 2.2 103/ul Normal 1.2-3.8 [facility] Comment on above: Performed By: #### C MP, LIPID, TSH #### [facility] [address] [place] [address] Dr. Bertram Paulino Lymphocytes/100 WBC (Bld) 35.7 % Normal 20.5-60.0 [facility] Comment on above: Performed By: #### C MP, LIPID, TSH #### [facility] [address] [place] [address] Dr. Bertram Paulino MANUAL DIFF REQ NO Normal [facility] Comment on above: Performed By: #### C MP, LIPID, TSH #### [facility] [address] [place] [address] Dr. Bertram Paulino MCH (RBC) [Entitic mass] 29.7 pg Normal 26.7-34.0 [facility] Comment on above: Performed By: #### C MP, LIPID, TSH #### [facility] [address] [place] [address] Dr. Bertram Paulino MCHC (RBC) [Mass/Vol] 33.8 g/dL Normal 29.9-35.2 [facility] Comment on above: Performed By: #### C MP, LIPID, TSH #### [facility] [address] [place] [address] Dr. Bertram Paulino MCV (RBC) [Entitic vol] 88.1 fL Normal 81.0-99.0 [facility] Comment on above: Performed By: #### C MP, LIPID, TSH #### [facility] [address] [place] [address] Dr. Bertram Paulino MONO # 0.3 103/ul Normal 0.3-0.8 [facility] Comment on above: Performed By: #### C MP, LIPID, TSH #### [facility] [address] [place] [address] Dr. Bertram Paulino Monocytes/100 WBC (Bld) 5.1 % Normal 1.7-12.0 [facility] Comment on above: Performed By: #### C MP, LIPID, TSH #### [facility] [address] [place] [address] Dr. Bertram Paulino NEUT # 3.4 103/ul Normal 1.4-6.5 [facility] Comment on above: Performed By: #### C MP, LIPID, TSH #### [facility] [address] [place] [address] Dr. Bertram Paulino Neutrophils/100 WBC (Bld) 54.8 % Normal 43.0-75.0 [facility] Comment on above: Performed By: #### C MP, LIPID, TSH #### [facility] [address] [address] [address] Bertram Paulino Platelet mean volume (Bld) [Entitic vol] 10.3 fL Normal 9.5-13.5 [facility] Comment on above: Performed By: #### C MP, LIPID, TSH #### [facility] [address] [address] [address] Bertram Paulino PLT 269 103/ul Normal 150-450 [facility] Comment on above: Performed By: #### C MP, LIPID, TSH #### [facility] [address] [address] [address] Bertram Paulino RBC 4.27 106/ul Normal 4.20-5.40 [facility] Comment on above: Performed By: #### C MP, LIPID, TSH #### [facility] [address] [place] [address] Dr. Bertram Paulino WBC 6.1 103/ul Normal 4.0-11.0 [facility] Comment on above: Performed By: #### C MP, LIPID, TSH #### [facility] [address] [place] [address] Dr. Bertram Paulino FREE T4on 01-12-2023 Free T4 [Mass/Vol] 1.00 ng/dL Normal 0.76-1.46 [facility] Comment on above: Performed By: #### C MP, LIPID, TSH #### [facility] [address] [place] [address] Dr. Bertram Paulino GLYCOHEMOGLOBIN A1Con 2022 ADA RECOMMENDATION SEE BELOW Normal [facility] Comment on above: Result Comment: ADA RECOMMENDED LIMIT 4.0 - 6.0 ADA THERAPEUTIC TARGET < 7.0 ACTION SUGGESTED > 7.0 Performed By: #### C MP, LIPID, TSH #### [facility] [address] [place] [address] Dr. Bertram Paulino Glucose [Mass/Vol] 126 mg/dL Normal [facility] Comment on above: Performed By: #### C MP, LIPID, TSH #### [facility] [address] [place] [address] Dr. Bertram Paulino HbA1c (Bld) [Mass fraction] 6.0 % Normal 4.5-6.2 [facility] Comment on above: Performed By: #### C MP, LIPID, TSH #### [facility] [address] [address] [address] Bertram Paulino LIPID PROFILEon 01-12-2023 CHOL-HDL RATIO NORM SEE BELOW Normal [facility] Comment on above: Result Comment: 3.3 - 4.4 LOW RISK 4.4 - 7.1 AVERAGE RISK 7.1 - 11.0 MODERATE RISK >11.0 HIGH RISK Performed By: #### C MP, LIPID, TSH #### [facility] [address] [address] [address] Bertram Paulino Cholesterol [Mass/Vol] 222 mg/dL Critically high <=200 [facility] Comment on above: Performed By: #### C MP, LIPID, TSH #### [facility] [address] [address] [address] Bertram Paulino Cholesterol in HDL [Mass/Vol] 44 mg/dL Normal 40-60 [facility] Comment on above: Performed By: #### C MP, LIPID, TSH #### [facility] [address] [address] [address] Bertram Paulino Cholesterol in LDL [Mass/Vol] 132.4 mg/dL Normal [facility] Comment on above: Performed By: #### C MP, LIPID, TSH #### [facility] [address] [address] [address] Bertram Paulino Cholesterol.total/Ch olesterol in HDL [Mass ratio] 5.0 {ratio} Normal [facility] Comment on above: Performed By: #### C MP, LIPID, TSH #### [facility] [address] [address] [address] Bertram Paulino HDL NORMAL > or = 60 mg/dl - LO W CARDIOVASCULAR RISK <40 mg/dl - HIGH CARDIOVASCULAR RISK Normal [facility] Comment on above: Performed By: #### C MP, LIPID, TSH #### [facility] [address] [address] [address] Bertram Paulino LDL CALC NORMAL SEE BELOW Normal [facility] Comment on above: Result Comment: <100 mg/dl OPTIMAL 100 - 129 mg/dl NEAR OR ABOVE OPTIMAL 130 - 159 mg/dl BORDERLINE HIGH 160 - 189 mg/dl HIGH >190 mg/dl VERY HIGH Performed By: #### C MP, LIPID, TSH #### [facility] [address] [address] [address] Bertram Paulino Triglyceride [Mass/Vol] 228 mg/dL Critically high <=150 [facility] Comment on above: Performed By: #### C MP, LIPID, TSH #### [facility] [address] [address] [address] Bertram Paulino VLDL CALC 45.6 mg/dL Normal [facility] Comment on above: Performed By: #### C MP, LIPID, TSH #### [facility] [address] [address] [address] Bertram Paulino PROF 14(COMP METB)on 023 Albumin [Mass/Vol] 3.8 g/dL Normal 3.4-5.0 [facility] Comment on above: Performed By: #### C MP, LIPID, TSH #### [facility] [address] [address] [address] Bertram Paulino Albumin/Globulin [Mass ratio] 1.2 {ratio} Normal [facility] Comment on above: Performed By: #### C MP, LIPID, TSH #### [facility] [address] [address] [address] Bertram Paulino ALP [Catalytic activity/Vol] 66 U/L Normal 46-116 [facility] Comment on above: Performed By: #### C MP, LIPID, TSH #### [facility] [address] [address] [address] Bertram Paulino ALT [Catalytic activity/Vol] 45 U/L Normal 14-59 [facility] Comment on above: Performed By: #### C MP, LIPID, TSH #### [facility] [address] [address] [address] Bertram Paulino Anion gap [Moles/Vol] 12.8 mmol/L Normal [facility] Comment on above: Performed By: #### C MP, LIPID, TSH #### [facility] [address] [address] [address] Bertram Paulino AST [Catalytic activity/Vol] 29 U/L Normal 15-37 [facility] Comment on above: Performed By: #### C MP, LIPID, TSH #### [facility] [address] [address] [address] Bertram Paulino Bilirubin [Mass/Vol] 0.4 mg/dL Normal 0.2-1.0 [facility] Comment on above: Performed By: #### C MP, LIPID, TSH #### [facility] Laboratory [address] [place] [address] Dr. Bertram Paulino Calcium [Mass/Vol] 9.1 mg/dL Normal 8.5-10.1 [facility] Comment on above: Performed By: #### C MP, LIPID, TSH #### [facility] [address] [place] [address] Dr. Bertram Paulino Chloride [Moles/Vol] 104 mmol/L Normal 98-107 [facility] Comment on above: Performed By: #### C MP, LIPID, TSH #### [facility] [address] [address] [address] Bertram Paulino CO2 [Moles/Vol] 27.2 mmol/L Normal 21.0-32.0 [facility] Comment on above: Performed By: #### C MP, LIPID, TSH #### [facility] [address] [address] [address] Bertram Paulino Creatinine [Mass/Vol] 0.65 mg/dL Normal 0.55-1.02 [facility] Comment on above: Performed By: #### C MP, LIPID, TSH #### [facility] [address] [place] [address] Dr. Bertram Paulino EGFR-AF SOUTH AFRICAN >60 Normal >=60 [facility] Comment on above: Performed By: #### C MP, LIPID, TSH #### [facility] [address] [place] [address] Dr. Bertram Paulino EGFR-NON AF SOUTH AFRICAN >60 Normal >=60 [facility] Comment on above: Performed By: #### C MP, LIPID, TSH #### [facility] [address] [address] [address] Bertram Paulino Globulin (S) [Mass/Vol] 3.1 g/dL Normal [facility] Comment on above: Performed By: #### C MP, LIPID, TSH #### [facility] [address] [address] [address] Bertram Paulino Glucose [Mass/Vol] 123 mg/dL Critically high 74-106 [facility] Comment on above: Performed By: #### C MP, LIPID, TSH #### [facility] [address] [address] [address] Bertram Paulino Potassium [Moles/Vol] 4.0 mmol/L Normal 3.5-5.1 [facility] Comment on above: Performed By: #### C MP, LIPID, TSH #### [facility] [address] [place] [address] Dr. Bertram Paulino Protein [Mass/Vol] 6.9 g/dL Normal 6.4-8.2 [facility] Comment on above: Performed By: #### C MP, LIPID, TSH #### [facility] [address] [place] [address] Dr. Bertram Paulino Sodium [Moles/Vol] 140 mmol/L Normal 136-145 [facility] Comment on above: Performed By: #### C MP, LIPID, TSH #### [facility] [address] [place] [address] Dr. Bertram Paulino Urea nitrogen [Mass/Vol] 6.0 mg/dL Critically low 7.0-18.0 [facility] Comment on above: Performed By: #### C MP, LIPID, TSH #### [facility] [address] [place] [address] Dr. Bertram Paulino Urea nitrogen/Creatinine [Mass ratio] 9.2 mg/mg Normal [facility] Comment on above: Performed By: #### C MP, LIPID, TSH #### [facility] [address] [place] [address] Dr. Bertram Paulino SED RATE [facility] 2022 SED RATE 23 mm/hr Normal <=30 [facility] Comment on above: Performed By: #### C MP, LIPID, TSH #### [facility] [address] [place], [place] [address] Dr. Bertram Paulino TSHon 01-12-2023 TSH 2.215 uIU/mL Normal 0.358-3.740 [facility] Comment on above: Performed By: #### C MP, LIPID, TSH #### [facility] [address] [place], [place] [address] CHEST W CONon 08-10-2022 CT CHEST W CON EXAMINATION: CT CHES T W CON HISTORY: Lung field abnormal ; follow-up groundglass opacities on prior chest CT COMPARISON: CTA chest 05/14/2022, 11/23/2021 TECHNIQUE: Multi-planar CT images were created with IV contrast. Axial, Coronal, and Sagittal images. Dose reduction techniques were achieved by using automated exposure control and/or adjustment of mA and/or kV according to patient size and/or use of iterative reconstruction technique. FINDINGS: LUNGS: Clearing of previously seen groundglass opacities. Trace amount of atelectasis within dependent lung regions. PLEURA: No mass, effusion, or pneumothorax. VASCULATURE: No abnormality. QIAN: No mass or adenopathy. MEDIASTINUM: No mass or adenopathy. CARDIAC: No enlargement, pericardial thickening, or significant calcification. AORTA: No aneurysm or dissection. CHEST WALL: No mass or axillary adenopathy. BONES: No bone lesion or fracture. LIMITED ABDOMEN: No suspicious findings Limited images of the upper abdomen. OTHER: Negative. IMPRESSION: 1. No acute cardiopulmonary process. Clearing of previously seen groundglass opacities/infiltrates . Electronically authenticated by: PASTOR ESPANA Date: 2022-08-10 06:47 Normal [facility] XR CHEST 2 Von 07-11-2022 XR CHEST 2 V EXAMINATION: XR CHES T 2 V HISTORY: Chest pain COMPARISON: 05/14/2022 TECHNIQUE: PA and lateral FINDINGS: LUNGS: No significant pulmonary parenchymal abnormalities. VASCULATURE: No increased pulmonary vasculature. PLEURA: No pneumothorax, effusion, or pleural thickening. CARDIAC: No cardiomegaly or cardiac silhouette abnormality. MEDIASTINUM: No visible mass or adenopathy. BONES: Mild degenerative disc disease and spondylosis without visible acute abnormalities. OTHER: Negative. IMPRESSION: No acute disease. Electronically authenticated by: VANESSA PRESLEY Date: 2022-07-11 07:11 Normal [facility] Progress Noteson 07-05-2022 [employer] Authentication Interface Message Text Documentation: Mode: Telephone Patient Patient Work Phone: Patient Cell Preferred phone: [phone] Consent: I confirmed patient understanding of the risks and benefits of telehealth visits and obtained consent to proceed with the telehealth visit. Location of Patient: Home of patient Post Covid Follow Up Telemedicine Visit Note: CC: f/u of [id number] condition Recall: Lu Cancino is a 51 year old female with Post Covid-19 symptoms. Initial symptoms started October 2021 and included runny nose and cough. Persistent symptoms include facial edema and joint pain. HPI/ROS: Had Covid a second time on the 16 of May Has developed some cardiac issues that may be Covid related EKG that was done 07-01-22 showed normal sinus but cannot rule out inferior myocardial infarction, probably old, minimal ST depression, possible right ventricular hypertrophy, abnormal EKG Feels like her chest pain has worsened today Also has neuropathy Patient still resides near [place], [place] PMH/PSH: Reviewed 07/05/22 Allergies: Per list, reviewed 07/05/22 FMH: Reviewed 07/05/22 Wellness/Social: Alcohol: no Tobacco: no Diet: Regular Exercise: no Employment status: Does work Physical Exam: Unable to conduct physical exam as visit was conducted by telephone. Patient alert and oriented to person, place, time, and situation. Patient speaking clearly and without signs of respiratory distress. 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 Initial symptoms started October 2021 and included runny nose and cough. Persistent symptoms include facial edema and joint pain. - Since 03-24-22 tele visit reports no symptom improvement. 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 Bertram Paulino Basophils/100 WBC (Bld) 0.2 % Normal 0.2-2.0 [facility] Comment on above: Performed By: #### C MP, LIPID, TSH #### [facility] [address] [place] [address] Dr. Bertram Paulino EO # 0.1 103/ul Normal 0.0-0.7 [facility] Comment on above: Performed By: #### C MP, LIPID, TSH #### [facility] [address] [place] [address] Dr. Bertram Paulino Eosinophils/100 WBC (Bld) 0.7 % Critically low 0.9-7.0 [facility] Comment on above: Performed By: #### C MP, LIPID, TSH #### [facility] [address] [place] [address] Dr. Bertram Paulino Erythrocyte distribution width (RBC) [Ratio] 12.9 % Normal 11.0-15.0 [facility] Comment on above: Performed By: #### C MP, LIPID, TSH #### [facility] [address] [place] [address] Dr. Bertram Paulino Hematocrit (Bld) [Volume fraction] 41.5 % Normal 36.0-48.0 [facility] Comment on above: Performed By: #### C MP, LIPID, TSH #### [facility] [address] [place] [address] Dr. Bertram Paulino Hemoglobin (Bld) [Mass/Vol] 14.1 g/dL Normal 12.0-16.0 [facility] Comment on above: Performed By: #### C MP, LIPID, TSH #### [facility] [address] [place] [address] Dr. Bertram Paulino IG # 0.03 10e3/ul Normal 0.00-0.03 [facility] Comment on above: Performed By: #### C MP, LIPID, TSH #### [facility] [address] [address] [address] Bertram Paulino IG % 0.3 % Normal 0.0-0.5 [facility] Comment on above: Performed By: #### C MP, LIPID, TSH #### [facility] [address] [address] [address] Bertram Paulino LYMPH # 2.4 103/ul Normal 1.2-3.8 [facility] Comment on above: Performed By: #### C MP, LIPID, TSH #### [facility] [address] [address] [address] Bertram Paulino Lymphocytes/100 WBC (Bld) 27.6 % Normal 20.5-60.0 [facility] Comment on above: Performed By: #### C MP, LIPID, TSH #### [facility] [address] [address] [address] Bertram Paulino MANUAL DIFF REQ NO Normal [facility] Comment on above: Performed By: #### C MP, LIPID, TSH #### [facility] [address] [address] [address] Bertram Paulino MCH (RBC) [Entitic mass] 29.7 pg Normal 26.7-34.0 [facility] Comment on above: Performed By: #### C MP, LIPID, TSH #### [facility] [address] [address] [address] Bertram Paulino MCHC (RBC) [Mass/Vol] 34.0 g/dL Normal 29.9-35.2 [facility] Comment on above: Performed By: #### C MP, LIPID, TSH #### [facility] [address] [address] [address] Bertram Paulino MCV (RBC) [Entitic vol] 87.6 fL Normal 81.0-99.0 [facility] Comment on above: Performed By: #### C MP, LIPID, TSH #### [facility] [address] [address] [address] Bertram Paulino MONO # 0.6 103/ul Normal 0.3-0.8 [facility] Comment on above: Performed By: #### C MP, LIPID, TSH #### [facility] [address] [place] [address] Dr. Bertram Paulino Monocytes/100 WBC (Bld) 6.8 % Normal 1.7-12.0 [facility] Comment on above: Performed By: #### C MP, LIPID, TSH #### [facility] [address] [place] [address] Dr. Bertram Paulino NEUT # 5.6 103/ul Normal 1.4-6.5 [facility] Comment on above: Performed By: #### C MP, LIPID, TSH #### [facility] [address] [place] [address] Dr. Bertram Paulino Neutrophils/100 WBC (Bld) 64.4 % Normal 43.0-75.0 [facility] Comment on above: Performed By: #### C MP, LIPID, TSH #### [facility] [address] [place] [address] Dr. Bertram Paulino Platelet mean volume (Bld) [Entitic vol] 10.0 fL Normal 9.5-13.5 [facility] Comment on above: Performed By: #### C MP, LIPID, TSH #### [facility] [address] [place] [address] Dr. Bertram Paulino PLT 326 103/ul Normal 150-450 [facility] Comment on above: Performed By: #### C MP, LIPID, TSH #### [facility] [address] [place] [address] Dr. Bertram Paulino RBC 4.74 106/ul Normal 4.20-5.40 [facility] Comment on above: Performed By: #### C MP, LIPID, TSH #### [facility] [address] [place] [address] Dr. Bertram Paulino WBC 8.7 103/ul Normal 4.0-11.0 [facility] Comment on above: Performed By: #### C MP, LIPID, TSH #### [facility] [address] [place] [address] Dr. Bertram Paulino ER URINE PROFILEon 2 Bilirubin Ql (U) Negative Normal NEGATIVE [facility] Comment on above: Performed By: #### C MP, LIPID, TSH #### [facility] [address] [address] [address] Bertram Paulino Clarity (U) CLEAR Normal CLEAR [facility] Comment on above: Performed By: #### C MP, LIPID, TSH #### [facility] [address] [address] [address] Bertram Paulino Color (U) LT. YELLOW Normal YELLOW [facility] Comment on above: Performed By: #### C MP, LIPID, TSH #### [facility] [address] [address] [address] Bertram ETIENNE A micrscopic examination will be performed if indicated. Normal [facility] Comment on above: Performed By: #### C MP, LIPID, TSH #### [facility] [address] [address] [address] Bertram Paulino Glucose Ql (U) Negative Normal NEGATIVE [facility] Comment on above: Performed By: #### C MP, LIPID, TSH #### [facility] [address] [address] [address] Bertram Paulino Hemoglobin Ql (U) Negative Normal NEGATIVE [facility] Comment on above: Performed By: #### C MP, LIPID, TSH #### [facility] [address] [address] [address] Bertram Paulino Ketones Ql (U) TRACE Abnormal NEGATIVE [facility] Comment on above: Performed By: #### C MP, LIPID, TSH #### [facility] [address] [address] [address] Bertram Paulino LEUKOCYTES Negative Normal NEGATIVE [facility] Comment on above: Performed By: #### C MP, LIPID, TSH #### [facility] [address] [place] [address] Dr. Bertram Paulino Nitrite Ql (U) Negative Normal NEGATIVE [facility] Comment on above: Performed By: #### C MP, LIPID, TSH #### [facility] [address] [address] [address] Bertram Paulino pH (U) 6.0 [pH] Normal 5-9 [facility] Comment on above: Performed By: #### C MP, LIPID, TSH #### [facility] [address] [address] [address] Bertram Paulino SPEC GRAVITY <=1.005 Abnormal 1.005-<=1.025 [facility] Comment on above: Performed By: #### C MP, LIPID, TSH #### [facility] [address] [address] [address] Bertram Paulino UA PROTEIN Negative Normal NEGATIVE/ TRACE [facility] Comment on above: Performed By: #### C MP, LIPID, TSH #### [facility] [address] [address] [address] Bertram Paulino UR MICRO IND NOT INDICATED Normal [facility] Comment on above: Performed By: #### C MP, LIPID, TSH #### [facility] [address] [address] [address] Bertram Paulino Urobilinogen Qn (U) 0.2 {Yazmin'U}/dL Normal 0.2 - 1. 0 [facility] Comment on above: Performed By: #### C MP, LIPID, TSH #### [facility] [address] [address] [address] Bertram Paulino LACTATE/LACTIC ACIDon 2021 Lactate [Moles/Vol] 1.2 mmol/L Normal 0.4-1.9 [facility] Comment on above: Performed By: #### C MP, LIPID, TSH #### [facility] [address] [address] [address] Bertram Paulino MONOon 07-01-2022 Monocytes (Bld) [#/Vol] Negative Normal NEGATIVE [facility] Comment on above: Performed By: #### M VENUS ####[facility] [id number] [address]Dr. Bertram Paulino PROF 14(COMP METB)on 022 Albumin [Mass/Vol] 4.1 g/dL Normal 3.4-5.0 [facility] Comment on above: Performed By: #### C MP, LIPID, TSH #### [facility] [address] [address] [address] Bertram Paulino Albumin/Globulin [Mass ratio] 1.1 {ratio} Normal [facility] Comment on above: Performed By: #### C MP, LIPID, TSH #### [facility] [address] [address] [address] Bertram Paulino ALP [Catalytic activity/Vol] 57 U/L Normal 46-116 [facility] Comment on above: Performed By: #### C MP, LIPID, TSH #### [facility] [address] [address] [address] Bertram Paulino ALT [Catalytic activity/Vol] 38 U/L Normal 14-59 [facility] Comment on above: Performed By: #### C MP, LIPID, TSH #### [facility] [address] [address] [address] Bertram Paulino Anion gap [Moles/Vol] 13.9 mmol/L Normal [facility] Comment on above: Performed By: #### C MP, LIPID, TSH #### [facility] [address] [address] [address] Bertram Paulino AST [Catalytic activity/Vol] 22 U/L Normal 15-37 [facility] Comment on above: Performed By: #### C MP, LIPID, TSH #### [facility] [address] [address] [address] Bertram Paulino Bilirubin [Mass/Vol] 0.7 mg/dL Normal 0.2-1.0 [facility] Comment on above: Performed By: #### C MP, LIPID, TSH #### [facility] [address] [address] [address] Bertram Paulino Calcium [Mass/Vol] 9.6 mg/dL Normal 8.5-10.1 [facility] Comment on above: Performed By: #### C MP, LIPID, TSH #### [facility] [address] [address] [address] Bertram Paulino Chloride [Moles/Vol] 98 mmol/L Normal 98-107 [facility] Comment on above: Performed By: #### C MP, LIPID, TSH #### [facility] [address] [address] [address] Bertram Paulino CO2 [Moles/Vol] 27.4 mmol/L Normal 21.0-32.0 [facility] Comment on above: Performed By: #### C MP, LIPID, TSH #### [facility] [address] [address] [address] Bertram Paulino Creatinine [Mass/Vol] 0.85 mg/dL Normal 0.55-1.02 [facility] Comment on above: Performed By: #### C MP, LIPID, TSH #### [facility] [address] [place] [address] Dr. Bertram Paulino EGFR-AF SOUTH AFRICAN >60 Normal >=60 [facility] Comment on above: Performed By: #### C MP, LIPID, TSH #### [facility] [address] [place] [address] Dr. Bertram Paulino EGFR-NON AF SOUTH AFRICAN >60 Normal >=60 [facility] Comment on above: Performed By: #### C MP, LIPID, TSH #### [facility] [address] [place] [address] Dr. Bertram Paulino Globulin (S) [Mass/Vol] 3.6 g/dL Normal [facility] Comment on above: Performed By: #### C MP, LIPID, TSH #### [facility] [address] [place] [address] Dr. Bertram Paulino Glucose [Mass/Vol] 99 mg/dL Normal 74-106 [facility] Comment on above: Performed By: #### C MP, LIPID, TSH #### [facility] [address] [place] [address] Dr. Bertram Paulino Potassium [Moles/Vol] 3.3 mmol/L Critically low 3.5-5.1 [facility] Comment on above: Performed By: #### C MP, LIPID, TSH #### [facility] [address] [place] [address] Dr. Bertram Paulino Protein [Mass/Vol] 7.7 g/dL Normal 6.4-8.2 [facility] Comment on above: Performed By: #### C MP, LIPID, TSH #### [facility] [address] [address] [address] Bertram Paulino Sodium [Moles/Vol] 136 mmol/L Normal 136-145 [facility] Comment on above: Performed By: #### C MP, LIPID, TSH #### [facility] [address] [address] [address] Bertram Paulino Urea nitrogen [Mass/Vol] 13.0 mg/dL Normal 7.0-18.0 [facility] Comment on above: Performed By: #### C MP, LIPID, TSH #### [facility] [address] [address] [address] Bertram Paulino Urea nitrogen/Creatinine [Mass ratio] 15.3 mg/mg Normal [facility] Comment on above: Performed By: #### C MP, LIPID, TSH #### [facility] [address] [address] [address] Bertram Paulino TROPONIN, HIGH SENSITIVITYon 07-01-2022 HSTROP 6.5 pg/mL Normal 4.0-51.3 [facility] Comment on above: Result Comment: CUT- OFF POINTS HAVE BEEN ESTABLISHED BASED ON THE FOURTH UNIVERSAL DEFINITIONS OF MYOCARDIAL INFARCTION. THE UPPER REFERENCE LIMIT (URL) OF TROPONIN, DEFINED THE 99TH PERCENTILE OF cTnI DISTRIBUTION IN A REFERENCE POPULATION, HAS BEEN CONFIRMED THE DECISION THRESHOLD FOR AR DIAGNOSIS. Performed By: #### T SH, CMP, HSTROPN ####[facility] [id number] [id number] Bertram Paulino TSHon 07-01-2022 TSH 2.596 uIU/mL Normal 0.358-3.740 [facility] Comment on above: Performed By: #### T SH, CMP, HSTROPN ####[facility] [id number] [place], [place] [id number]. Bertram Paulino STOOL CULTUREon 06-10-2022 Campylobacter Culture Final report Normal [facility] Comment on above: Performed By: #### C MP, LIPID, TSH #### [facility] [address] [address] [address] Bertram Paulino E coli Shiga Toxin EIA Negative Normal Negative [facility] Comment on above: Performed By: #### C MP, LIPID, TSH #### [facility] [address] [address] [address] Bertram Paulino Result 1 Comment Normal [facility] Comment on above: Result Comment: No S almonella or Shigella recovered. Performed By: #### C MP, LIPID, TSH #### [facility] [address] [address] [address] Bertram Paulino Result Comment: No C ampylobacter species isolated. Salmonella/Shigella Screen Final report Normal [facility] Comment on above: Performed By: #### C MP, LIPID, TSH #### [facility] [address] [place] [address] Dr. Bertram Paulino OVA AND PARASITE EXAMINATION on 06-09-2022 Ova + Parasite Exam Final report Normal [facility] Comment on above: Result Comment: Thes e results were obtained using wet preparation(s) and trichrome stained smear. This test does not include testing for Cryptosporidium parvum, Cyclospora, or Microsporidia. Performed By: #### O VAPE ####[facility] [id number] [address]Dr. Bertram Paulino Result 1 Comment Normal [facility] Comment on above: Result Comment: No o va, cysts, or parasites seen. . One negative specimen does not rule out the possibility of a parasitic infection. Performed By: #### O VAPE ####[facility] [id number] [id number] Bertram Paulino CLOSTRIDIUM DIFFICILE PCRon 06-07-2022 C difficile Toxin Gene KIRT Negative Normal Negative [facility] Comment on above: Performed By: #### C DIFNAA #### [facility] [address] [place] [address] Dr. Bertram Paulino OCC BLD IMMUNO SCREENon 05-14 OCCULT BLOOD Negative Normal NEGATIVE [facility] Comment on above: Performed By: #### C MP, LIPID, TSH #### [facility] [address] [address] [address] Bertram Paulino CARDIAC ERASMO 3-6on 2 CK [Catalytic activity/Vol] 109 U/L Normal 26-192 [facility] Comment on above: Performed By: #### C MP, LIPID, TSH #### [facility] [address] [address] [address] Bertram Paulino CK.MB [Mass/Vol] 1.63 ng/mL Normal <=3.60 [facility] Comment on above: Performed By: #### C MP, LIPID, TSH #### [facility] [address] [address] [address] Bertram Paulino HSTROP 6.0 pg/mL Normal 4.0-51.3 [facility] Comment on above: Result Comment: CUT- OFF POINTS HAVE BEEN ESTABLISHED BASED ON THE FOURTH UNIVERSAL DEFINITIONS OF MYOCARDIAL INFARCTION. THE UPPER REFERENCE LIMIT (URL) OF TROPONIN, DEFINED THE 99TH PERCENTILE OF cTnI DISTRIBUTION IN A REFERENCE POPULATION, HAS BEEN CONFIRMED THE DECISION THRESHOLD FOR AR DIAGNOSIS. Performed By: #### C MP, LIPID, TSH #### [facility] [address] [address] [address] Bertram Paulino CK [Catalytic activity/Vol] 101 U/L Normal 26-192 [facility] Comment on above: Performed By: #### C MREP ####[facility] [id number] [address]Dr. Bertram Paulino CK.MB [Mass/Vol] 1.60 ng/mL Normal <=3.60 [facility] Comment on above: Performed By: #### C MREP ####[facility] [id number] [address]Dr. Bertram Paulino HSTROP 5.8 pg/mL Normal 4.0-51.3 [facility] Comment on above: Result Comment: CUT- OFF POINTS HAVE BEEN ESTABLISHED BASED ON THE FOURTH UNIVERSAL DEFINITIONS OF MYOCARDIAL INFARCTION. THE UPPER REFERENCE LIMIT (URL) OF TROPONIN, DEFINED THE 99TH PERCENTILE OF cTnI DISTRIBUTION IN A REFERENCE POPULATION, HAS BEEN CONFIRMED THE DECISION THRESHOLD FOR AR DIAGNOSIS. Performed By: #### C MREP ####[facility] [id number] [id number]. Bertram Paulino CBC AUTO DIFFon 05-15-2022 BASO # 0.1 103/ul Normal 0.0-0.1 [facility] Comment on above: Performed By: #### C MP, LIPID, TSH #### [facility] [address] [address] [address] Bertram Paulino Basophils/100 WBC (Bld) 0.8 % Normal 0.2-2.0 [facility] Comment on above: Performed By: #### C MP, LIPID, TSH #### [facility] [address] [place] [address] Dr. Bertram Paulino EO # 0.2 103/ul Normal 0.0-0.7 [facility] Comment on above: Performed By: #### C MP, LIPID, TSH #### [facility] [address] [place] [address] Dr. Bertram Paulino Eosinophils/100 WBC (Bld) 2.9 % Normal 0.9-7.0 [facility] Comment on above: Performed By: #### C MP, LIPID, TSH #### [facility] [address] [place] [address] Dr. Bertram Paulino Erythrocyte distribution width (RBC) [Ratio] 13.5 % Normal 11.0-15.0 [facility] Comment on above: Performed By: #### C MP, LIPID, TSH #### [facility] [address] [place] [address] Dr. Bertram Paulino Hematocrit (Bld) [Volume fraction] 34.4 % Critically low 36.0-48.0 [facility] Comment on above: Performed By: #### C MP, LIPID, TSH #### [facility] [address] [place] [address] Dr. Bertram Paulino Hemoglobin (Bld) [Mass/Vol] 11.8 g/dL Critically low 12.0-16.0 [facility] Comment on above: Performed By: #### C MP, LIPID, TSH #### [facility] [address] [place] [address] Dr. Bertram Paulino IG # 0.03 10e3/ul Normal 0.00-0.03 [facility] Comment on above: Performed By: #### C MP, LIPID, TSH #### [facility] [address] [address] [address] Bertram Paulino IG % 0.5 % Normal 0.0-0.5 [facility] Comment on above: Performed By: #### C MP, LIPID, TSH #### [facility] [address] [place] [address] Dr. Bertram Paulino LYMPH # 2.7 103/ul Normal 1.2-3.8 [facility] Comment on above: Performed By: #### C MP, LIPID, TSH #### [facility] [address] [place] [address] Dr. Bertram Paulino Lymphocytes/100 WBC (Bld) 41.3 % Normal 20.5-60.0 [facility] Comment on above: Performed By: #### C MP, LIPID, TSH #### [facility] [address] [place] [address] Dr. Bertram Paulino MANUAL DIFF REQ NO Normal [facility] Comment on above: Performed By: #### C MP, LIPID, TSH #### [facility] [address] [place] [address] Dr. Bertram Paulino MCH (RBC) [Entitic mass] 29.9 pg Normal 26.7-34.0 [facility] Comment on above: Performed By: #### C MP, LIPID, TSH #### [facility] [address] [place] [address] Dr. Bertram Paulino MCHC (RBC) [Mass/Vol] 34.3 g/dL Normal 29.9-35.2 [facility] Comment on above: Performed By: #### C MP, LIPID, TSH #### [facility] [address] [place] [address] Dr. Bertram Paulino MCV (RBC) [Entitic vol] 87.3 fL Normal 81.0-99.0 [facility] Comment on above: Performed By: #### C MP, LIPID, TSH #### [facility] [address] [address] [address] Bertram Paulino MONO # 0.6 103/ul Normal 0.3-0.8 [facility] Comment on above: Performed By: #### C MP, LIPID, TSH #### [facility] [address] [address] [address] Bertram Paulino Monocytes/100 WBC (Bld) 9.6 % Normal 1.7-12.0 [facility] Comment on above: Performed By: #### C MP, LIPID, TSH #### [facility] [address] [address] [address] Bertram Paulino NEUT # 2.9 103/ul Normal 1.4-6.5 [facility] Comment on above: Performed By: #### C MP, LIPID, TSH #### [facility] [address] [place] [address] Dr. Bertram Paulino Neutrophils/100 WBC (Bld) 44.9 % Normal 43.0-75.0 [facility] Comment on above: Performed By: #### C MP, LIPID, TSH #### [facility] [address] [address] [address] Bertram Paulino Platelet mean volume (Bld) [Entitic vol] 11.0 fL Normal 9.5-13.5 [facility] Comment on above: Performed By: #### C MP, LIPID, TSH #### [facility] [address] [place] [address] Dr. Bertram Paulino PLT 281 103/ul Normal 150-450 [facility] Comment on above: Performed By: #### C MP, LIPID, TSH #### [facility] [address] [place] [address] Dr. Bertram Paulino RBC 3.94 106/ul Critically low 4.20-5.40 [facility] Comment on above: Performed By: #### C MP, LIPID, TSH #### [facility] [address] [place] [address] Dr. Bertram Paulino WBC 6.5 103/ul Normal 4.0-11.0 [facility] Comment on above: Performed By: #### C MP, LIPID, TSH #### [facility] [address] [address] [address] Bertram Paulino CTA CHEST WO W CONon 022 CTA CHEST WO W CON EXAMINATION:CTA CHES T WO W CON INDICATION:CHEST PAIN, UNSPECIFIED COMPARISON:11/23/2021 TECHNIQUE:Thin section transaxial slices were acquired through the chest with intravenous contrast per PE protocol. Coronal and sagittal reconstructed images were reviewed. FINDINGS: PULMONARY ARTERIES: There is good opacification of the pulmonary vasculature. No suspicious pulmonary arterial filling defects are identified to suggest pulmonary embolus. LUNGS: Since the previous examination, there has been significant improved aeration of the lungs. There are some faint residual peripheral groundglass airspace opacities at the site of previous disease lung which may represent chronic scarring secondary to prior reported clinical history of Covid pneumonitis. No new airspace disease is present. PLEURAL CAVITY: No pleural effusion. MEDIASTINUM: Trachea and central airways are patent. HEART: The heart is unremarkable.There is no evidence of right heart strain. VASCULAR:The thoracic aorta is normal in caliber. LYMPH NODES:No suspicious lymphadenopathy. CHEST WALL/AXILLA: Chest wall and axilla are unremarkable. BONES: Osseous structures are unremarkable. VISUALIZED UPPER ABDOMEN: Upper abdominal structures are unremarkable. IMPRESSION: 1. No evidence of pulmonary embolus. 2. Improved aeration of the lungs with some residual faint peripheral groundglass opacities in the areas of disease to lung from the prior exam may represent chronic peripheral scarring. Electronically authenticated by: MAGDIEL BETANCOURT Date: 2022-05-14 23:01 Normal [facility] Covid-19 PCR (CVDTB)on SARS-CoV-2 (COVID-19) RNA KIRT+probe Ql (Unsp spec) Not detected Normal NOT DETECTED [facility] Comment on above: Result Comment: When diagnostic testing is negative, the possibility of a false negative should be considered in the context of a patient's recent exposures and the presence of clinical signs and symptoms consistent with SARS-CoV-2. This test is not yet approved or cleared by the [place] FDA. When there are no FDA-approved or cleared tests available, and other criteria are met, FDA can make tests available under an emergency access mechanism called an Emergency Use Authorization (EUA). The EUA for this test is supported by the [place] of Health and Human Service's declaration that circumstances exist to justify the emergency use of in vitro diagnostics for the detection and/or diagnosis of the virus that causes COVID-19. This EUA will remain in effect for the duration of the COVID-19 declaration justifying emergency of IVDs, unless it is terminated or revoked by the FDA (after which the test may no longer be used). Performed By: #### C MP, LIPID, TSH #### [facility] [address] [place] [address] Dr. Bertram Paulino PROF 14(COMP METB)on 022 Albumin [Mass/Vol] 3.3 g/dL Critically low 3.4-5.0 [facility] Comment on above: Performed By: #### C MP, LIPID, TSH #### [facility] [address] [place] [address] Dr. Bertram Paulino Albumin/Globulin [Mass ratio] 1.1 {ratio} Normal [facility] Comment on above: Performed By: #### C MP, LIPID, TSH #### [facility] [address] [place] [address] Dr. Bertram Paulino ALP [Catalytic activity/Vol] 47 U/L Normal 46-116 [facility] Comment on above: Performed By: #### C MP, LIPID, TSH #### [facility] [address] [place] [address] Dr. Bertram Paulino ALT [Catalytic activity/Vol] 42 U/L Normal 14-59 [facility] Comment on above: Performed By: #### C MP, LIPID, TSH #### [facility] [address] [place] [address] Dr. Bertram Paulino Anion gap [Moles/Vol] 14.3 mmol/L Normal [facility] Comment on above: Performed By: #### C MP, LIPID, TSH #### [facility] [address] [place] [address] Dr. Bertram Paulino AST [Catalytic activity/Vol] 20 U/L Normal 15-37 [facility] Comment on above: Performed By: #### C MP, LIPID, TSH #### [facility] [address] [address] [address] Bertram Paulino Bilirubin [Mass/Vol] 0.3 mg/dL Normal 0.2-1.0 [facility] Comment on above: Performed By: #### C MP, LIPID, TSH #### [facility] [address] [address] [address] Bertram Paulino Calcium [Mass/Vol] 9.0 mg/dL Normal 8.5-10.1 [facility] Comment on above: Performed By: #### C MP, LIPID, TSH #### [facility] [address] [address] [address] Bertram Paulino Chloride [Moles/Vol] 105 mmol/L Normal 98-107 [facility] Comment on above: Performed By: #### C MP, LIPID, TSH #### [facility] [address] [place] [address] Dr. Bertram Paulino CO2 [Moles/Vol] 26.5 mmol/L Normal 21.0-32.0 [facility] Comment on above: Performed By: #### C MP, LIPID, TSH #### [facility] [address] [place] [address] Dr. Bertram Paulino Creatinine [Mass/Vol] 0.77 mg/dL Normal 0.55-1.02 [facility] Comment on above: Performed By: #### C MP, LIPID, TSH #### [facility] [address] [place] [address] Dr. Bertram Paulino EGFR-AF SOUTH AFRICAN >60 Normal >=60 [facility] Comment on above: Performed By: #### C MP, LIPID, TSH #### [facility] [address] [place] [address] Dr. Bertram Paulino EGFR-NON AF SOUTH AFRICAN >60 Normal >=60 [facility] Comment on above: Performed By: #### C MP, LIPID, TSH #### [facility] [address] [place] [address] Dr. Bertram Paulino Globulin (S) [Mass/Vol] 3.1 g/dL Normal [facility] Comment on above: Performed By: #### C MP, LIPID, TSH #### [facility] [address] [address] [address] Bertram Paulino Glucose [Mass/Vol] 99 mg/dL Normal 74-106 [facility] Comment on above: Performed By: #### C MP, LIPID, TSH #### [facility] [address] [place] [address] Dr. Bertram Paulino Potassium [Moles/Vol] 3.8 mmol/L Normal 3.5-5.1 [facility] Comment on above: Performed By: #### C MP, LIPID, TSH #### [facility] [address] [place] [address] Dr. Bertram Paulino Protein [Mass/Vol] 6.4 g/dL Normal 6.4-8.2 [facility] Comment on above: Performed By: #### C MP, LIPID, TSH #### [facility] [address] [place] [address] Dr. Bertram Paulino Sodium [Moles/Vol] 142 mmol/L Normal 136-145 [facility] Comment on above: Performed By: #### C MP, LIPID, TSH #### [facility] [address] [place] [address] Dr. Bertram Paulino Urea nitrogen [Mass/Vol] 8.0 mg/dL Normal 7.0-18.0 [facility] Comment on above: Performed By: #### C MP, LIPID, TSH #### [facility] [address] [place] [address] Dr. Bertram Paulino Urea nitrogen/Creatinine [Mass ratio] 10.4 mg/mg Normal [facility] Comment on above: Performed By: #### C MP, LIPID, TSH #### [facility] [address] [place] [address] Dr. 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 Bertram Paulino Clarity (U) SL CLOUDY Abnormal CLEAR [facility] Comment on above: Performed By: #### C MP, LIPID, TSH #### [facility] [address] [address] [address] Bertram Paulino Color (U) LT. YELLOW Normal YELLOW [facility] Comment on above: Performed By: #### C MP, LIPID, TSH #### [facility] [address] [address] [address] Bertram Paulino Glucose Ql (U) Negative Normal NEGATIVE [facility] Comment on above: Performed By: #### C MP, LIPID, TSH #### [facility] [address] [address] [address] Bertram Paulino Hemoglobin Ql (U) Negative Normal NEGATIVE [facility] Comment on above: Performed By: #### C MP, LIPID, TSH #### [facility] [address] [place] [address] Dr. Bertram Paulino Ketones Ql (U) Negative Normal NEGATIVE [facility] Comment on above: Performed By: #### C MP, LIPID, TSH #### [facility] [address] [place] [address] Dr. Bertram Paulino LEUKOCYTES Negative Normal NEGATIVE [facility] Comment on above: Performed By: #### C MP, LIPID, TSH #### [facility] [address] [place] [address] Dr. Bertram Paulino Nitrite Ql (U) Negative Normal NEGATIVE [facility] Comment on above: Performed By: #### C MP, LIPID, TSH #### [facility] [address] [address] [address] Bertram Paulino pH (U) 5.5 [pH] Normal 5-9 [facility] Comment on above: Performed By: #### C MP, LIPID, TSH #### [facility] [address] [place] [address] Dr. Bertram Paulino SPEC GRAVITY 1.010 Normal 1.005-<=1.025 [facility] Comment on above: Performed By: #### C MP, LIPID, TSH #### [facility] [address] [address] [address] Bertram Paulino UA PROTEIN Negative Normal NEGATIVE/ TRACE [facility] Comment on above: Performed By: #### C MP, LIPID, TSH #### [facility] [address] [address] [address] Bertram Paulino UR MICRO IND NOT INDICATED Normal [facility] Comment on above: Performed By: #### C MP, LIPID, TSH #### [facility] [address] [address] [address] Bertram Paulino Urobilinogen Qn (U) 0.2 {Yazmin'U}/dL Normal 0.2 - 1. 0 [facility] Comment on above: Performed By: #### C MP, LIPID, TSH #### [facility] [address] [place] [address] Dr. Bertram Paulino CARDIAC ERASMO ADMITon 022 CK [Catalytic activity/Vol] 117 U/L Normal 26-192 [facility] Comment on above: Performed By: #### C MP, LIPID, TSH #### [facility] [address] [place] [address] Dr. Bertrma Paulino CK.MB [Mass/Vol] 2.08 ng/mL Normal <=3.60 [facility] Comment on above: Performed By: #### C MP, LIPID, TSH #### [facility] [address] [place] [address] Dr. Bertram Paulino HSTROP 4.7 pg/mL Normal 4.0-51.3 [facility] Comment on above: Result Comment: CUT- OFF POINTS HAVE BEEN ESTABLISHED BASED ON THE FOURTH UNIVERSAL DEFINITIONS OF MYOCARDIAL INFARCTION. THE UPPER REFERENCE LIMIT (URL) OF TROPONIN, DEFINED THE 99TH PERCENTILE OF cTnI DISTRIBUTION IN A REFERENCE POPULATION, HAS BEEN CONFIRMED THE DECISION THRESHOLD FOR AR DIAGNOSIS. Performed By: #### C MP, LIPID, TSH #### [facility] [address] [place] [address] Dr. Bertram Paulino JEAN-PIERRE 28 ng/mL Normal 9-82 [facility] Comment on above: Performed By: #### C MP, LIPID, TSH #### [facility] [address] [place] [address] Dr. Bertram Paulino CBC AUTO DIFFon 05-14-2022 BASO # 0.0 103/ul Normal 0.0-0.1 [facility] Comment on above: Performed By: #### C MP, LIPID, TSH #### [facility] [address] [place] [address] Dr. Bertram Paulino Basophils/100 WBC (Bld) 0.5 % Normal 0.2-2.0 [facility] Comment on above: Performed By: #### C MP, LIPID, TSH #### [facility] [address] [place] [address] Dr. Bertram Paulino EO # 0.1 103/ul Normal 0.0-0.7 [facility] Comment on above: Performed By: #### C MP, LIPID, TSH #### [facility] [address] [place] [address] Dr. Bertram Paulino Eosinophils/100 WBC (Bld) 1.6 % Normal 0.9-7.0 [facility] Comment on above: Performed By: #### C MP, LIPID, TSH #### [facility] [address] [place] [address] Dr. Bertram Paulino Erythrocyte distribution width (RBC) [Ratio] 13.4 % Normal 11.0-15.0 [facility] Comment on above: Performed By: #### C MP, LIPID, TSH #### [facility] [address] [place] [address] Dr. Bertram Paulino Hematocrit (Bld) [Volume fraction] 37.4 % Normal 36.0-48.0 [facility] Comment on above: Performed By: #### C MP, LIPID, TSH #### [facility] [address] [place] [address] Dr. Bertram Paulino Hemoglobin (Bld) [Mass/Vol] 12.3 g/dL Normal 12.0-16.0 [facility] Comment on above: Performed By: #### C MP, LIPID, TSH #### [facility] [address] [place] [address] Dr. Bertram Paulino IG # 0.02 10e3/ul Normal 0.00-0.03 [facility] Comment on above: Performed By: #### C MP, LIPID, TSH #### [facility] [address] [place] [address] Dr. Bertram Paulino IG % 0.3 % Normal 0.0-0.5 [facility] Comment on above: Performed By: #### C MP, LIPID, TSH #### [facility] [address] [place] [address] Dr. Bertram Paulino LYMPH # 2.6 103/ul Normal 1.2-3.8 [facility] Comment on above: Performed By: #### C MP, LIPID, TSH #### [facility] [address] [place] [address] Dr. Bertram Paulino Lymphocytes/100 WBC (Bld) 34.5 % Normal 20.5-60.0 [facility] Comment on above: Performed By: #### C MP, LIPID, TSH #### [facility] [address] [place] [address] Dr. Bertram Paulino MANUAL DIFF REQ NO Normal [facility] Comment on above: Performed By: #### C MP, LIPID, TSH #### [facility] [address] [place] [address] Dr. Bertram Paulino MCH (RBC) [Entitic mass] 29.4 pg Normal 26.7-34.0 [facility] Comment on above: Performed By: #### C MP, LIPID, TSH #### [facility] [address] [place] [address] Dr. Bertram Paulino MCHC (RBC) [Mass/Vol] 32.9 g/dL Normal 29.9-35.2 [facility] Comment on above: Performed By: #### C MP, LIPID, TSH #### [facility] [address] [place] [address] Dr. Bertram Paulino MCV (RBC) [Entitic vol] 89.3 fL Normal 81.0-99.0 [facility] Comment on above: Performed By: #### C MP, LIPID, TSH #### [facility] [address] [place] [address] Dr. Bertram Paulino MONO # 0.5 103/ul Normal 0.3-0.8 [facility] Comment on above: Performed By: #### C MP, LIPID, TSH #### [facility] [address] [place] [address] Dr. Bertram Pauilno Monocytes/100 WBC (Bld) 6.3 % Normal 1.7-12.0 [facility] Comment on above: Performed By: #### C MP, LIPID, TSH #### [facility] [address] [place] [address] Dr. Bertram Paulino NEUT # 4.3 103/ul Normal 1.4-6.5 [facility] Comment on above: Performed By: #### C MP, LIPID, TSH #### [facility] [address] [place] [address] Dr. Bertram Paulino Neutrophils/100 WBC (Bld) 56.8 % Normal 43.0-75.0 [facility] Comment on above: Performed By: #### C MP, LIPID, TSH #### [facility] [address] [place] [address] Dr. Bertram Paulino Platelet mean volume (Bld) [Entitic vol] 10.7 fL Normal 9.5-13.5 [facility] Comment on above: Performed By: #### C MP, LIPID, TSH #### [facility] [address] [place] [address] Dr. Bertram Paulino PLT 295 103/ul Normal 150-450 [facility] Comment on above: Performed By: #### C MP, LIPID, TSH #### [facility] [address] [place] [address] Dr. Bertram Paulino RBC 4.19 106/ul Critically low 4.20-5.40 [facility] Comment on above: Performed By: #### C MP, LIPID, TSH #### [facility] [address] [place] [address] Dr. Bertram Paulino WBC 7.6 103/ul Normal 4.0-11.0 [facility] Comment on above: Performed By: #### C MP, LIPID, TSH #### [facility] [address] [place] [address] Dr. Bertram Paulino D-DIMERon 05-14-2022 D-DIMER 0.65 mg/L FEU Critically high <=0.59 [facility] Comment on above: Performed By: #### D DIM #### [facility] [address] [place] [address] Dr. Bertram Paulino D-DIMER COMMENTS SEE BELOW Normal [facility] Comment on above: Result Comment: Incr eases in D-Dimer concentration observed with thromboembolic events can be variable due to localization, size, and age of the thrombus. Therefore, a thromboembolic event cannot be diagnosed with certainty on the basis of the reference range. D-Dimers may also be elevated for a variety of disorders including: advanced age, , coronary disease, cancer, liver disease, infection, inflammation, hematoma, DIC, trauma, post-surgery, diabetes, thrombolytic or anticoagulant therapy, stress, and generalized hospitalization. Performed By: #### D DIM #### [facility] [address] [place] [address] Dr. Bertram Paulino PROF CHEM 8 (BAS METB)on Anion gap [Moles/Vol] 10.7 mmol/L Normal [facility] Comment on above: Performed By: #### C MP, LIPID, TSH #### [facility] [address] [place] [address] Dr. Bertram Paulino Calcium [Mass/Vol] 9.6 mg/dL Normal 8.5-10.1 [facility] Comment on above: Performed By: #### C MP, LIPID, TSH #### [facility] [address] [place] [address] Dr. Bertram Paulino Chloride [Moles/Vol] 102 mmol/L Normal 98-107 [facility] Comment on above: Performed By: #### C MP, LIPID, TSH #### [facility] [address] [place] [address] Dr. Bertram Paulino CO2 [Moles/Vol] 28.8 mmol/L Normal 21.0-32.0 [facility] Comment on above: Performed By: #### C MP, LIPID, TSH #### [facility] [address] [address] [address] Bertram Paulino Creatinine [Mass/Vol] 0.83 mg/dL Normal 0.55-1.02 [facility] Comment on above: Performed By: #### C MP, LIPID, TSH #### [facility] [address] [address] [address] Bertram Paulino EGFR-AF SOUTH AFRICAN >60 Normal >=60 [facility] Comment on above: Performed By: #### C MP, LIPID, TSH #### [facility] [address] [address] [address] Bertram Paulino EGFR-NON AF SOUTH AFRICAN >60 Normal >=60 [facility] Comment on above: Performed By: #### C MP, LIPID, TSH #### [facility] [address] [address] [address] Bertram Paulino Glucose [Mass/Vol] 128 mg/dL Critically high 74-106 [facility] Comment on above: Performed By: #### C MP, LIPID, TSH #### [facility] [address] [address] [address] Bertram Paulino Potassium [Moles/Vol] 3.5 mmol/L Normal 3.5-5.1 [facility] Comment on above: Performed By: #### C MP, LIPID, TSH #### [facility] [address] [address] [address] Bertram Paulino Sodium [Moles/Vol] 138 mmol/L Normal 136-145 [facility] Comment on above: Performed By: #### C MP, LIPID, TSH #### [facility] [address] [address] [address] Bertram Paulino Urea nitrogen [Mass/Vol] 8.0 mg/dL Normal 7.0-18.0 [facility] Comment on above: Performed By: #### C MP, LIPID, TSH #### [facility] [address] [address] [address] Bertram Paulino Urea nitrogen/Creatinine [Mass ratio] 9.6 mg/mg Normal [facility] Comment on above: Performed By: #### C MP, LIPID, TSH #### [facility] [address] [place], [place] [address] Dr. Bertram Paulino XR CHEST 1 Von 05-14-2022 XR CHEST 1 V EXAM: XR CHEST 1 V HISTORY: CHEST PAIN, UNSPECIFIED COMPARISON: Chest x-ray 10/28/2021 TECHNIQUE: Portable chest FINDINGS: The lung parenchyma is free of consolidation or infiltrate. No pneumothorax or pleural effusion. The cardiac, mediastinal and hilar contours are normal. The visualized osseous structures exhibit no gross abnormality. IMPRESSION: No acute cardiopulmonary abnormality. Electronically authenticated by: VANESSA MARTINEZ Date: 2022-05-14 19:51 Normal [facility] CARDIAC ERASMO ADMITon 022 CK [Catalytic activity/Vol] 45 U/L Normal 26-192 [facility] Comment on above: Performed By: #### C MADM, TSH, CMP ####[facility] [address] [address]DrHazel Paulino CK.MB [Mass/Vol] ng/mL Normal <=3.60 [facility] Comment on above: Performed By: #### C MADM, TSH, CMP ####[facility] [address] [id number]. Bertram Paulino HSTROP 5.1 pg/mL Normal 4.0-51.3 [facility] Comment on above: Result Comment: CUT- OFF POINTS HAVE BEEN ESTABLISHED BASED ON THE FOURTH UNIVERSAL DEFINITIONS OF MYOCARDIAL INFARCTION. THE UPPER REFERENCE LIMIT (URL) OF TROPONIN, DEFINED THE 99TH PERCENTILE OF cTnI DISTRIBUTION IN A REFERENCE POPULATION, HAS BEEN CONFIRMED THE DECISION THRESHOLD FOR AR DIAGNOSIS. Performed By: #### C MADM, TSH, CMP ####[facility] [address] [id number] Paulino JEAN-PIERRE 36 ng/mL Normal 9-82 [facility] Comment on above: Performed By: #### C MADM, TSH, CMP ####[facility] [address] [id number] Paulino CBC AUTO DIFFon 05-04-2022 BASO # 0.0 103/ul Normal 0.0-0.1 [facility] Comment on above: Performed By: #### C BC #### [facility] [address] [address] [address] Bertram Paulino Basophils/100 WBC (Bld) 0.6 % Normal 0.2-2.0 [facility] Comment on above: Performed By: #### C BC #### [facility] [address] [place] [address] Dr. Bertram Paulino EO # 0.1 103/ul Normal 0.0-0.7 [facility] Comment on above: Performed By: #### C BC #### [facility] [address] [place] [address] Dr. Bertram Paulino Eosinophils/100 WBC (Bld) 1.7 % Normal 0.9-7.0 [facility] Comment on above: Performed By: #### C BC #### [facility] [address] [place] [address] Dr. Bertram Paulino Erythrocyte distribution width (RBC) [Ratio] 13.2 % Normal 11.0-15.0 [facility] Comment on above: Performed By: #### C BC #### [facility] [address] [place] [address] Dr. Bertram Paulino Hematocrit (Bld) [Volume fraction] 40.9 % Normal 36.0-48.0 [facility] Comment on above: Performed By: #### C BC #### [facility] [address] [place] [address] Dr. Bertram Paulino Hemoglobin (Bld) [Mass/Vol] 13.6 g/dL Normal 12.0-16.0 [facility] Comment on above: Performed By: #### C BC #### [facility] [address] [place] [address] Dr. Bertram Paulino IG # 0.02 10e3/ul Normal 0.00-0.03 [facility] Comment on above: Performed By: #### C BC #### [facility] [address] [place] [address] Dr. Bertram Paulino IG % 0.3 % Normal 0.0-0.5 [facility] Comment on above: Performed By: #### C BC #### [facility] [address] [place] [address] Dr. Bertram Paulino LYMPH # 2.5 103/ul Normal 1.2-3.8 [facility] Comment on above: Performed By: #### C BC #### [facility] [address] [place] [address] Dr. Bertram Paulino Lymphocytes/100 WBC (Bld) 36.0 % Normal 20.5-60.0 [facility] Comment on above: Performed By: #### C BC #### [facility] [address] [place] [address] Dr. Bertram Paulino MANUAL DIFF REQ NO Normal [facility] Comment on above: Performed By: #### C BC #### [facility] [address] [place] [address] Dr. Bertram Paulino MCH (RBC) [Entitic mass] 29.0 pg Normal 26.7-34.0 [facility] Comment on above: Performed By: #### C BC #### [facility] [address] [place] [address] Dr. Bertram Paulino MCHC (RBC) [Mass/Vol] 33.3 g/dL Normal 29.9-35.2 [facility] Comment on above: Performed By: #### C BC #### [facility] [address] [place] [address] Dr. Bertram Paulino MCV (RBC) [Entitic vol] 87.2 fL Normal 81.0-99.0 [facility] Comment on above: Performed By: #### C BC #### [facility] [address] [place] [address] Dr. Bertram Paulino MONO # 0.5 103/ul Normal 0.3-0.8 [facility] Comment on above: Performed By: #### C BC #### [facility] [address] [place] [address] Dr. Bertram Paulino Monocytes/100 WBC (Bld) 6.9 % Normal 1.7-12.0 [facility] Comment on above: Performed By: #### C BC #### [facility] [address] [place] [address] Dr. Bertram Paulino NEUT # 3.8 103/ul Normal 1.4-6.5 [facility] Comment on above: Performed By: #### C BC #### [facility] [address] [place] [address] Dr. Bertram Paulino Neutrophils/100 WBC (Bld) 54.5 % Normal 43.0-75.0 [facility] Comment on above: Performed By: #### C BC #### [facility] [address] [place] [address] Dr. Bertram Paulino Platelet mean volume (Bld) [Entitic vol] 10.3 fL Normal 9.5-13.5 [facility] Comment on above: Performed By: #### C BC #### [facility] [address] [place] [address] Dr. Bertram Paulino PLT 316 103/ul Normal 150-450 [facility] Comment on above: Performed By: #### C BC #### [facility] [address] [place] [address] Dr. Bertram Paulino RBC 4.69 106/ul Normal 4.20-5.40 [facility] Comment on above: Performed By: #### C BC #### [facility] [address] [place] [address] Dr. Bertram Paulino WBC 6.9 103/ul Normal 4.0-11.0 [facility] Comment on above: Performed By: #### C BC #### [facility] [address] [place] [address] Dr. Bertram Paulino [facility]14 SARS-CoV-2 (COVID-19) RNA KIRT+probe Ql (Unsp spec) Not detected Normal NOT DETECTED [facility] Comment on above: Result Comment: When diagnostic testing is negative, the possibility of a false negative should be considered in the context of a patient's recent exposures and the presence of clinical signs and symptoms consistent with SARS-CoV-2. This test is not yet approved or cleared by the [place] FDA. When there are no FDA-approved or cleared tests available, and other criteria are met, FDA can make tests available under an emergency access mechanism called an Emergency Use Authorization (EUA). The EUA for this test is supported by the [employer] of Health and Human Service's declaration that circumstances exist to justify the emergency use of in vitro diagnostics for the detection and/or diagnosis of the virus that causes COVID-19. This EUA will remain in effect for the duration of the COVID-19 declaration justifying emergency of IVDs, unless it is terminated or revoked by the FDA (after which the test may no longer be used). Performed By: #### C MP, LIPID, TSH #### [facility] [address] [place] [address] Dr. Bertram Paulino ER URINE PROFILEon 2 Bilirubin Ql (U) Negative Normal NEGATIVE [facility] Comment on above: Performed By: #### C MP, LIPID, TSH #### [facility] [address] [place] [address] Dr. Bertram Paulino Clarity (U) CLEAR Normal CLEAR [facility] Comment on above: Performed By: #### C MP, LIPID, TSH #### [facility] [address] [place] [address] Dr. Bertram Paulino Color (U) YELLOW Normal YELLOW [facility] Comment on above: Performed By: #### C MP, LIPID, TSH #### [facility] [address] [place] [address] Dr. Bertram Paulino ERUKIERAND A micrscopic examination will be performed if indicated. Normal [facility] Comment on above: Performed By: #### C MP, LIPID, TSH #### [facility] [address] [place] [address] Dr. Bertram Paulino Glucose Ql (U) Negative Normal NEGATIVE [facility] Comment on above: Performed By: #### C MP, LIPID, TSH #### [facility] [address] [place] [address] Dr. Bertram Paulino Hemoglobin Ql (U) Negative Normal NEGATIVE [facility] Comment on above: Performed By: #### C MP, LIPID, TSH #### [facility] [address] [place] [address] Dr. Bertram Paulino Ketones Ql (U) TRACE Abnormal NEGATIVE [facility] Comment on above: Performed By: #### C MP, LIPID, TSH #### [facility] [address] [address] [address] Bertram Paulino LEUKOCYTES Negative Normal NEGATIVE [facility] Comment on above: Performed By: #### C MP, LIPID, TSH #### [facility] [address] [address] [address] Bertram Paulino Nitrite Ql (U) Negative Normal NEGATIVE [facility] Comment on above: Performed By: #### C MP, LIPID, TSH #### [facility] [address] [address] [address] Bertram Paulino pH (U) 7.5 [pH] Normal 5-9 [facility] Comment on above: Performed By: #### C MP, LIPID, TSH #### [facility] [address] [place] [address] Dr. Bertram Paulino SPEC GRAVITY 1.015 Normal 1.005-<=1.025 [facility] Comment on above: Performed By: #### C MP, LIPID, TSH #### [facility] [address] [place] [address] Dr. Bertram Paulino UA PROTEIN TRACE Normal NEGATIVE/ TRACE [facility] Comment on above: Performed By: #### C MP, LIPID, TSH #### [facility] [address] [address] [address] Bertram Paulino UR MICRO IND NOT INDICATED Normal [facility] Comment on above: Performed By: #### C MP, LIPID, TSH #### [facility] [address] [place] [address] Dr. Bertram Paulino Urobilinogen Qn (U) 0.2 {Yazmin'U}/dL Normal 0.2 - 1. 0 [facility] Comment on above: Performed By: #### C MP, LIPID, TSH #### [facility] [address] [place] [address] Dr. Bertram Paulino PROF 14(COMP METB)on 022 Albumin [Mass/Vol] 3.7 g/dL Normal 3.4-5.0 [facility] Comment on above: Performed By: #### C MADKim TSH, CMP ####[facility] [address] [address]Dr. Bertram Paulino Albumin/Globulin [Mass ratio] 1.0 {ratio} Normal [facility] Comment on above: Performed By: #### C MADM, TSH, CMP ####[facility] [address] [address]Dr. Bertram Paulino ALP [Catalytic activity/Vol] 59 U/L Normal 46-116 [facility] Comment on above: Performed By: #### C MADKim TSH, CMP ####[facility] [address] [place], [place] [address]Dr. Bertram Jefferson ALT [Catalytic activity/Vol] 55 U/L Normal 14-59 [facility] Comment on above: Performed By: #### C MADM TSH, CMP ####[facility] [address] [place], [place] [address]Dr. Bertram Jefferson Anion gap [Moles/Vol] 13.6 mmol/L Normal [facility] Comment on above: Performed By: #### C JASMYN TSH, CMP ####[facility] [address] [place], [place] [address]Dr. Bertram Jefferson AST [Catalytic activity/Vol] 33 U/L Normal 15-37 [facility] Comment on above: Performed By: #### C MADM, TSH, CMP ####[facility] [address] [address]Dr. Vivianajennifer Paulino Bilirubin [Mass/Vol] 0.7 mg/dL Normal 0.2-1.0 [facility] Comment on above: Performed By: #### C MADM, TSH, CMP ####[facility] [address] [address]Dr. Vivianajennifer Paulino Calcium [Mass/Vol] 9.3 mg/dL Normal 8.5-10.1 [facility] Comment on above: Performed By: #### C MADM, TSH, CMP ####[facility] [address] [id number]. Bertram Paulino Chloride [Moles/Vol] 102 mmol/L Normal 98-107 [facility] Comment on above: Performed By: #### C MADM, TSH, CMP ####[facility] [address] [address]Dr. Bertram Paulino CO2 [Moles/Vol] 28.1 mmol/L Normal 21.0-32.0 [facility] Comment on above: Performed By: #### C MADM, TSH, CMP ####[facility] [address] [address]Dr. Bertram Paulino Creatinine [Mass/Vol] 0.80 mg/dL Normal 0.55-1.02 [facility] Comment on above: Performed By: #### C MADM, TSH, CMP ####[facility] [address] [place], [place] [address]Dr. Bertram Paulino EGFR-AF SOUTH AFRICAN >60 Normal >=60 [facility] Comment on above: Performed By: #### C MADM, TSH, CMP ####[facility] [address] [address]Dr. Bertram Paulino EGFR-NON AF SOUTH AFRICAN >60 Normal >=60 [facility] Comment on above: Performed By: #### C MADM, TSH, CMP ####[facility] [address] [address]Dr. Bertram Paulino Globulin (S) [Mass/Vol] 3.7 g/dL Normal [facility] Comment on above: Performed By: #### C MADM, TSH, CMP ####[facility] [address] [address]Dr. Bertram Paulino Glucose [Mass/Vol] 104 mg/dL Normal 74-106 [facility] Comment on above: Performed By: #### C MADM, TSH, CMP ####[facility] [address] [address]Dr. Bertram Paulino Potassium [Moles/Vol] 3.7 mmol/L Normal 3.5-5.1 [facility] Comment on above: Performed By: #### C MADM, TSH, CMP ####[facility] [address] [address]Dr. Bertram Paulino Protein [Mass/Vol] 7.4 g/dL Normal 6.4-8.2 [facility] Comment on above: Performed By: #### C MADM, TSH, CMP ####[facility] [address] [address]Dr. Bertram Paulino Sodium [Moles/Vol] 140 mmol/L Normal 136-145 [facility] Comment on above: Performed By: #### C MADM, TSH, CMP ####[facility] [address] [address]Dr. Bertram Paulino Urea nitrogen [Mass/Vol] 19.0 mg/dL Critically high 7.0-18.0 [facility] Comment on above: Performed By: #### C MADM TSH, CMP ####[facility] [address] [address]Dr. Bertram Paulino Urea nitrogen/Creatinine [Mass ratio] 23.8 mg/mg Normal [facility] Comment on above: Performed By: #### C MADM TSH, CMP ####[facility] [address] [address]Dr. Bertram Paulino TSHon 05-04-2022 TSH 1.746 uIU/mL Normal 0.358-3.740 [facility] Comment on above: Performed By: #### C MADM, TSH, CMP ####[facility] [address] [address]Dr. Bertram Paulino B-Type Natriuretic Peptideon 12-28-2021 Natriuretic peptide B (Bld) [Mass/Vol] 15.0 pg/mL Normal 5-100 [facility] Comment on above: Result Comment: PERF ORMED BY: [place] [address] PATHOLOGIST FILLER [employer] STORMY MTZ M.D. Performed By: #### B CYBER OPS PLANNER #### [address] Basic Metabolic Panelon 12-14 Calcium [Mass/Vol] 9.4 mg/dL Normal 8.2-10.2 [facility] Comment on above: Performed By: #### C BC, PT, PTT, HEPATIC, BMP, LIPASE #### [facility] [address] Chloride [Moles/Vol] 101 mmol/L Normal 95-114 [facility] Comment on above: Performed By: #### C BC, PT, PTT, HEPATIC, BMP, LIPASE #### [address] CO2 [Moles/Vol] 21.0 mmol/L Low 22.0-30.0 [facility] Comment on above: Performed By: #### C BC, PT, PTT, HEPATIC, BMP, LIPASE #### [address] Creatinine [Mass/Vol] 0.54 mg/dL Normal 0.44-1.03 [facility] Comment on above: Performed By: #### C BC, PT, PTT, HEPATIC, BMP, LIPASE #### [address] Creatinine Clr Calc Pharmacy 153.81 [facility] [place] Comment on above: Performed By: #### C BC, PT, PTT, HEPATIC, BMP, LIPASE #### [address] Estimated GFR ( Kristen > 60 [facility] [place] Comment on above: Result Comment: GFR estimated reference range: According to KDOQI guidelines, <60 ml/min/1.73m2 is sufficient to diagnose a patient with chronic kidney disease. Performed By: #### C BC, PT, PTT, HEPATIC, BMP, LIPASE #### [address] Estimated GFR (Non- Am > 60 [facility] [place] Comment on above: Performed By: #### C BC, PT, PTT, HEPATIC, BMP, LIPASE #### [address] Glucose [Mass/Vol] 98 mg/dL Normal 70-100 [facility] Comment on above: Result Comment: [facility] Glucose Reference Range is dependent on time and content of last meal. Glucose of more than 200 mg/dL in a nonstressed, ambulatory subject supports the diagnosis of Diabetes Mellitus. ADA recommended reference range Performed By: #### C BC, PT, PTT, HEPATIC, BMP, LIPASE #### [facility] [address] Potassium [Moles/Vol] 3.7 mmol/L Normal 3.5-5.1 [facility] Comment on above: Performed By: #### C BC, PT, PTT, HEPATIC, BMP, LIPASE #### [facility] [address] Sodium [Moles/Vol] 134 mmol/L Low 136-146 [facility] Comment on above: Performed By: #### C BC, PT, PTT, HEPATIC, BMP, LIPASE #### [facility] [address] Urea nitrogen [Mass/Vol] 4 mg/dL Low 9-23 [facility] Comment on above: Performed By: #### C BC, PT, PTT, HEPATIC, BMP, LIPASE #### [facility] [address] abdomen pelvis w conon CT abdomen pelvis w con [facility] [place] [address] [place] [address] CT Scan Report Signed Patient: Lu Cancino MR#: [id number] : 1970 Acct:[id number] Age/Sex: 50 / F ADM Date: 12/28/21 Loc: ER Room: Type: [facility] ER Attending Dr: Ordering Provider: Ricardo Ricardo DO Date of Service: 12/28/21 CT/CT abdomen pelvis w con: Abdominal Pain Copies to: Ricardo Ricardo DO CT abdomen pelvis w con 12/28/2021 8:05 PM SIGNS AND SYMPTOMS: Left-sided abdominal pain with nausea. Pain in right upper quadrant radiating to the left mid abdomen. TECHNIQUE: Multidetector ct axial images of the abdomen and pelvis were obtained with IV contrast. Multiplanar reformats were performed and reviewed to further define anatomy and possible pathology. CT was performed with one or more of the following dose reduction techniques: Automated exposure control, adjustment of the mA and/or kV according to patient size, or use of iterative reconstruction technique. COMPARISON: None. FINDINGS: Lower Chest: Atherosclerotic changes are noted in the coronary arteries. There is dependent scarring or atelectasis in the lung bases. ABDOMEN: Liver: The liver is diffusely hypoattenuating suggesting diffuse fatty infiltration. Bile Ducts: Normal caliber. Gallbladder: There is hyperattenuating material dependently within the gallbladder which may represent gallbladder sludge or debris. Pancreas: Within normal limits. Spleen: Within normal limits. Adrenals: Within normal limits. Kidneys: Within normal limits. Pelvis: Reproductive Organs: No pelvic masses. Ureters: Within normal limits. Bladder: Within normal limits. Bowel: Normal caliber. There is a normal appendix in the right lower quadrant. Mesenteric Lymph Nodes: No enlarged mesenteric lymph nodes. Peritoneum: No ascites or free air, no fluid collection. Vessels: Atherosclerotic changes are noted in the abdominal aorta and its branches. Retroperitoneum: Within normal limits. Abdominal Wall: Within normal limits. Bones: Degenerative changes are noted in the thoracolumbar spine, sacroiliac joints, and hips. There is a mild dextro convex curvature of the thoracic lumbar junction. CT/CT abdomen pelvis w con IMPRESSION: There is no evidence of bowel obstruction or obstructive uropathy. There is hypoattenuation of liver parenchyma suggesting diffuse fatty infiltration. Sludge versus debris layers spinal in the gallbladder lumen. No free fluid or free air. There is mild dependent scarring or atelectasis in the lung bases. Impression dictated by: Erasmo Brooks M.D.12/28/2021 8:14 PM Dictation Location: [place] [address] Transcribed By: [facility] 12/28/212013 Dictated By: Erasmo Brooks II, MD 12/28/212006 Signed By: 12/28/212013 Normal [facility] Complete Blood Count Auto Di ffon 12-28-2021 Basophils (Bld) [#/Vol] 0.0 10*3/uL Normal 0.0-0.2 [facility] Comment on above: Result Comment: PERF ORMED BY: [place] [address] PATHOLOGIST F[employer]ER [employer] STORMY MTZ M.D. Performed By: #### C BC, PT, PTT, HEPATIC, BMP, LIPASE #### [address] Basophils/100 WBC (Bld) 0.9 % Normal . [facility] Comment on above: Performed By: #### C BC, PT, PTT, HEPATIC, BMP, LIPASE #### [address] Eosinophils (Bld) [#/Vol] 0.0 10*3/uL Normal 0.0-0.45 [facility] Comment on above: Performed By: #### C BC, PT, PTT, HEPATIC, BMP, LIPASE #### [address] Eosinophils/100 WBC (Bld) 0.7 % Normal . [facility] Comment on above: Performed By: #### C BC, PT, PTT, HEPATIC, BMP, LIPASE #### [address] Erythrocyte distribution width (RBC) [Ratio] 14.9 % Normal 11.9-15.3 [facility] Comment on above: Performed By: #### C BC, PT, PTT, HEPATIC, BMP, LIPASE #### [address] Hematocrit (Bld) [Volume fraction] 37.6 % Normal 34.0-46.4 [facility] Comment on above: Performed By: #### C BC, PT, PTT, HEPATIC, BMP, LIPASE #### [address] Hemoglobin (Bld) [Mass/Vol] 12.8 g/dL Normal 11.8-15.4 [facility] Comment on above: Performed By: #### C BC, PT, PTT, HEPATIC, BMP, LIPASE #### [address] Lymphocytes (Bld) [#/Vol] 1.7 10*3/uL Normal 1.00-4.8 [facility] Comment on above: Performed By: #### C BC, PT, PTT, HEPATIC, BMP, LIPASE #### [facility] [address] Lymphocytes/100 WBC (Bld) 34.3 % Normal . [facility] Comment on above: Performed By: #### C BC, PT, PTT, HEPATIC, BMP, LIPASE #### [address] MCH (RBC) [Entitic mass] 30.2 pg Normal 24.7-34.3 [facility] Comment on above: Performed By: #### C BC, PT, PTT, HEPATIC, BMP, LIPASE #### [address] MCV (RBC) [Entitic vol] 88.6 fL Normal 80-100 [facility] Comment on above: Performed By: #### C BC, PT, PTT, HEPATIC, BMP, LIPASE #### [address] Mean Corpuscular HGB Conc 34.1 g/dL Normal 32.0-35.0 [facility] Comment on above: Performed By: #### C BC, PT, PTT, HEPATIC, BMP, LIPASE #### [address] Monocytes (Bld) [#/Vol] 0.6 10*3/uL Normal 0.0-0.8 [facility] Comment on above: Performed By: #### C BC, PT, PTT, HEPATIC, BMP, LIPASE #### [address] Monocytes/100 WBC (Bld) 12.1 % Normal . [facility] Comment on above: Performed By: #### C BC, PT, PTT, HEPATIC, BMP, LIPASE #### [address] Neutrophils (Bld) [#/Vol] 2.5 10*3/uL Normal 1.8-7.7 [facility] Comment on above: Performed By: #### C BC, PT, PTT, HEPATIC, BMP, LIPASE #### [address] Neutrophils/100 WBC (Bld) 52.0 % Normal . [facility] Comment on above: Performed By: #### C BC, PT, PTT, HEPATIC, BMP, LIPASE #### [address] Nucleated RBC/100 WBC (Bld) [Ratio] 0.0 % Normal 0-0.5 [facility] Comment on above: Performed By: #### C BC, PT, PTT, HEPATIC, BMP, LIPASE #### [address] Platelet mean volume (Bld) [Entitic vol] 7.8 fL Normal 6.3-10.7 [facility] Comment on above: Performed By: #### C BC, PT, PTT, HEPATIC, BMP, LIPASE #### [address] Platelets (Bld) [#/Vol] 458 10*3/uL High 150-450 [facility] Comment on above: Performed By: #### C BC, PT, PTT, HEPATIC, BMP, LIPASE #### [address] RBC (Bld) [#/Vol] 4.25 10*6/uL Normal 3.60-5.00 [facility] Comment on above: Performed By: #### C BC, PT, PTT, HEPATIC, BMP, LIPASE #### [address] WBC (Bld) [#/Vol] 4.9 10*3/uL Normal 4.5-11.0 [facility] Comment on above: Performed By: #### C BC, PT, PTT, HEPATIC, BMP, LIPASE #### [address] ECG 12 lead ECGon 12-28-2021 ECG 12 lead ECG [facility] Main [place] [address] [place] [address] Electrocardiograph Report Signed Patient: Lu Cancino MR#: [id number] : 1970 Acct:[id number] Age/Sex: 50 / F ADM Date: 12/28/21 Loc: ER Room: Type: [facility] ER Attending Dr: Ordering Provider: Ricardo Ricardo DO Date of Service: 12/28/21 ECG/ECG 12 lead ECG: Abdominal Pain Copies to: Test Reason : Blood Pressure : 146/079 mmHG Vent. Rate : 090 BPM Atrial Rate : 090 BPM P-R Int : 156 ms QRS Dur : 092 ms QT Int : 414 ms P-R-T Axes : 067 088 039 degrees QTc Int : 506 ms Normal sinus rhythm Confirmed by Ricardo RICARDO DO ([id number]) on 12/28/2021 9:15:05 PM Referred By: Electronically Signed By:Ricardo RICARDO DO Transcribed By: MUS Signed By Ricardo Ricardo DO 0 12/28/212114 [facility] HCG,Urineon 12-28-2021 Beta HCG ( test) Ql (U) Negative [facility] Comment on above: Order Comment: Name Collection Type:: Clean-Voided Midstream Result Comment: PERF ORMED BY: [place] [address] PATHOLOGIST FILLER SHREDDER HELPER STORMY MTZ M.D. Performed By: #### C BC, PT, PTT, HEPATIC, BMP, LIPASE #### [facility] [address] [place], [place] [id number] [facility] Hepatic Panelon 12-28-2021 Albumin [Mass/Vol] 4.0 g/dL Normal 3.2-5.5 [facility] Comment on above: Performed By: #### C BC, PT, PTT, HEPATIC, BMP, LIPASE #### [facility] [address] [place] [address] Albumin/Globulin [Mass ratio] 1.6 {ratio} [facility] Comment on above: Performed By: #### C BC, PT, PTT, HEPATIC, BMP, LIPASE #### [facility] [address] ALP [Catalytic activity/Vol] 38 U/L Normal 32-92 [facility] Comment on above: Performed By: #### C BC, PT, PTT, HEPATIC, BMP, LIPASE #### [facility] [address] ALT [Catalytic activity/Vol] 44 U/L Normal 10-60 [facility] Comment on above: Performed By: #### C BC, PT, PTT, HEPATIC, BMP, LIPASE #### [facility] [address] AST [Catalytic activity/Vol] 38 U/L Normal 10-42 [facility] Comment on above: Performed By: #### C BC, PT, PTT, HEPATIC, BMP, LIPASE #### [address] Bilirubin [Mass/Vol] 0.8 mg/dL Normal 0.3-1.2 [facility] Comment on above: Performed By: #### C BC, PT, PTT, HEPATIC, BMP, LIPASE #### [address] Bilirubin,Indirect 0.7 mg/dL Normal [facility] Comment on above: Performed By: #### C BC, PT, PTT, HEPATIC, BMP, LIPASE #### [facility] [address] Bilirubin.indirect [Mass/Vol] 0.1 mg/dL Normal 0.0-0.4 [facility] Comment on above: Performed By: #### C BC, PT, PTT, HEPATIC, BMP, LIPASE #### [facility] [address] [place] [address] [place] Globulin (S) [Mass/Vol] 2.5 g/dL Normal [facility] Comment on above: Performed By: #### C BC, PT, PTT, HEPATIC, BMP, LIPASE #### [facility] [address] Protein [Mass/Vol] 6.5 g/dL Normal 6.1-7.9 [facility] Comment on above: Performed By: #### C BC, PT, PTT, HEPATIC, BMP, LIPASE #### [facility] [address] Lipaseon 12-28-2021 Lipase [Catalytic activity/Vol] 29.0 U/L Normal 22-51 [facility] Comment on above: Result Comment: PERF ORMED BY: [place] [address] PATHOLOGIST FILLER SHREDDER HELPER STORMY MTZ M.D. Performed By: #### C BC, PT, PTT, HEPATIC, BMP, LIPASE #### [address] Partial Thromboplastin Timeo n 12-28-2021 aPTT Coag (Bld) [Time] 30.4 s Normal 25.1-36.5 [facility] Comment on above: Result Comment: PERF ORMED BY: [place] [address] PATHOLOGIST FILLER SHREDDER HELPER STORMY MTZ M.D. Performed By: #### C BC, PT, PTT, HEPATIC, BMP, LIPASE #### [address] Prothrombin Time INRon 12-28 INR Coag (PPP) [Relative time] 1.0 {INR} Normal [facility] Comment on above: Result Comment: INR Therapeutic Range A) Pre- and Peroperative OAT started two weeks before surgery. NOT HIP SURGERY: 1.5 - 2.5 HIP SURGERY: 2 - 3 B) Primary and secondary prevention of venous THROMBOSIS: 2 - 3 C) Active venous thrombosis, pulmonary embolism and prevention of recurrent venous thrombosis: 2 - 3 D) Prevention of arterial thromboembolism including patients with mechanical heart valves: 3 - 4.5 Performed By: #### C BC, PT, PTT, HEPATIC, BMP, LIPASE #### [address] PT Coag (PPP) [Time] 11.8 s Normal 9.0-12.9 [facility] Comment on above: Performed By: #### C BC, PT, PTT, HEPATIC, BMP, LIPASE #### [facility] [address] [place] [address] Urinalysison 12-28-2021 Appearance (U) Clear Normal Clear [facility] Comment on above: Order Comment: Name Collection Type:: Clean-Voided Midstream Performed By: #### C BC, PT, PTT, HEPATIC, BMP, LIPASE #### [facility] [address] [place] [address] Bilirubin,Urine Negative Normal Negative [facility] Comment on above: Order Comment: Name Collection Type:: Clean-Voided Midstream Performed By: #### C BC, PT, PTT, HEPATIC, BMP, LIPASE #### [facility] [address] [place] [address] Color (U) Yellow Normal Yellow [facility] Comment on above: Order Comment: Name Collection Type:: Clean-Voided Midstream Performed By: #### C BC, PT, PTT, HEPATIC, BMP, LIPASE #### [facility] [address] [place] [address] Glucose Ql (U) Normal Normal Normal [facility] Comment on above: Order Comment: Name Collection Type:: Clean-Voided Midstream Performed By: #### C BC, PT, PTT, HEPATIC, BMP, LIPASE #### [facility] [address] [place] [address] Ketones Ql (U) Negative Normal Negative [facility] Comment on above: Order Comment: Name Collection Type:: Clean-Voided Midstream Performed By: #### C BC, PT, PTT, HEPATIC, BMP, LIPASE #### [facility] [address] [place] [address] [place] Leukocyte esterase Test strip Ql (U) Negative Normal Negative [facility] Comment on above: Order Comment: Name Collection Type:: Clean-Voided Midstream Performed By: #### C BC, PT, PTT, HEPATIC, BMP, LIPASE #### [facility] [address] [place] [address] [place] Nitrite,Urine Negative Normal Negative [facility] Comment on above: Order Comment: Name Collection Type:: Clean-Voided Midstream Performed By: #### C BC, PT, PTT, HEPATIC, BMP, LIPASE #### [facility] [address] [place] [address] Occult Blood,Urine Negative Normal Negative [facility] Comment on above: Order Comment: Name Collection Type:: Clean-Voided Midstream Performed By: #### C BC, PT, PTT, HEPATIC, BMP, LIPASE #### [facility] [address] [place] [address] pH (U) 7.5 [pH] Normal 5.0-9.0 [facility] Comment on above: Order Comment: Name Collection Type:: Clean-Voided Midstream Performed By: #### C BC, PT, PTT, HEPATIC, BMP, LIPASE #### [address] Protein,Urine Negative Normal Negative [facility] Comment on above: Order Comment: Name Collection Type:: Clean-Voided Midstream Performed By: #### C BC, PT, PTT, HEPATIC, BMP, LIPASE #### [address] Specificy [place],Urine 1.004 Normal 1.001-1.030 [facility] Comment on above: Order Comment: Name Collection Type:: Clean-Voided Midstream Performed By: #### C BC, PT, PTT, HEPATIC, BMP, LIPASE #### [address] Urobilinogen,Urine Normal Normal Normal [facility] Comment on above: Order Comment: Name Collection Type:: Clean-Voided Midstream Performed By: #### C BC, PT, PTT, HEPATIC, BMP, LIPASE #### [address] XR chest 1V portableon 12-28 XR chest 1V portable [facility] Main [place] [address] [place] [address] XRay Report Signed Patient: Lu Cancino MR#: [id number] : 1970 Acct:[id number] Age/Sex: 50 / F ADM Date: 12/28/21 Loc: ER Room: Type: PRE ER Attending Dr: Ordering Provider: Ricardo Ricardo DO Date of Service: 12/28/21 XR/XR chest 1V portable: Abdominal Pain Copies to: Ricardo Ricardo DO XR chest 1V portable 12/28/2021 5:46 PM SIGNS AND SYMPTOMS: Left-sided abdominal pain and nausea PROTOCOL: Frontal radiograph of the chest COMPARISON: 12/08/2021 FINDINGS: The trachea is midline. The heart and mediastinal structures are within normal limits. There is interstitial prominence and perihilar vascular prominence similar to the prior exam. This may represent sequelae of volume overload/congestive heart failure. Degenerative changes are noted in the thoracic spine. The bony thorax is intact. XR/XR chest 1V portable IMPRESSION: There is interstitial prominence and perihilar vascular prominence similar to the prior exam. This may represent sequelae of volume overload/congestive heart failure. Impression dictated by: Erasmo Brooks M.D.12/28/2021 6:18 PM Dictation Location: [place] [address] Transcribed By: [facility] 12/28/211817 Dictated By: Erasmo Brooks II, MD 12/28/211816 Signed By: 12/28/211817 [facility] ANTI DNAon 04-09-2019 ANTI DNA <1:10 Normal <1:10 [facility] Comment on above: Performed By: #### 1 009, [id number], [id number] #### [facility] [address] ANTI-ENAon 04-09-2019 ANTI SM Negative Normal NEG,NEGATIVE, Neg [facility] Comment on above: Performed By: #### 1 0097, 85421, 88668 #### [facility] [address] ANTI SM/ANTIRNP Negative Normal NEG,NEGATIVE , Neg [facility] Comment on above: Performed By: #### 1 0097, 14579, 87920 #### [facility] [address] [place] [address], [facility] C REACTIVE PROTEINon 019 CRP mass conc 8.0 mg/L High 0.0-7.0 [facility] Comment on above: Performed By: #### 6 1405 #### [facility] [address] [place] [address], [facility] CHROMATIN ANTIBODY, IGG 2004 287on 04-09-2019 CHROMATIN ANTIBODY, IGG 4 Units Normal 0-19 [facility] Comment on above: Result Comment: INTE RPRETIVE INFORMATION: Chromatin Antibody, IgG 19 Units or less: Negative 20 - 60 Units: Moderate Positive 61 Units or greater: Strong Positive The presence of anti-chromatin antibodies may be useful in the diagnosis of systemic lupus erythematosus (SLE) or drug-induced lupus (DIL) and have been reported to be predictive of lupus nephritis, especially when antibody levels are high. Performed by [employer], [address] [facility] [place] [address] [email or web address], Sam Brito MD - Lab. Director CYCLIC CITRULLINATED PEPTIDE AB 20492ey 04-09-2019 CYCLIC CIT PEP 5 Units Normal 0-19 [facility] Comment on above: Result Comment: INTE RPRETIVE INFORMATION: Cyclic Citrullinated Peptide Antibody, IgG 19 Units or less ................... Negative 20-39 Units ........................ Weak Positive 40-59 Units ........................ Moderate Positive 60 Units or greater ................ Strong Positive Anti-cyclic citrullinated peptide (anti-CCP), IgG antibodies are present in about 69-83 percent of patients with rheumatoid arthritis (RA) and have specificities of 93-95 percent. These autoantibodies may be present in the preclinical phase of disease, are associated with future RA development, and may predict radiographic joint destruction. Patients with weak positive results should be monitored and testing repeated. Performed by [employer], [address] [place] [address] www.[email or web address], Sam Brito MD - Lab. Director SEDIMENTATION RATEon 019 SED RATE 34 mm/hr High 0-20 [facility] Comment on above: Performed By: #### 5 6506 #### [facility] [address] [place] [address], [facility] SJOGRENS ANTIBODIESon 2018 SS-A Negative Normal NEG,NEGATIVE, Neg [facility] Comment on above: Performed By: #### 1 0097, 98426, 71615 #### [facility] [address] [place] [address], [facility] SS-B Negative Normal NEG,NEGATIVE, Neg [facility] Comment on above: Performed By: #### 1 0097, 20579, 40893 #### [facility] [address] [place] [address], [facility] Vital Signs Date Time Vital Sign Value Performing Clinician Facility 08-26-2023 13:10-0400 Body height 157.48 cm Selene Changmond Other [facility] Other 08-26-2023 13:10-0400 Body mass index (BMI) [Ratio] 49.01 kg/m2 Selene Changmond Other [facility] Other 08-26-2023 13:10-0400 Body temperature 97.9 [degF] Selene Changmond Other [facility] Other 08-26-2023 13:10-0400 Body weight 121.56 kg Selene Changmond Other [facility] Other 08-26-2023 13:10-0400 Diastolic blood pressure 71 mm[Hg] Selene Michelle Other [facility] Other 08-26-2023 13:10-0400 Respiratory rate 18 /min Selene Martinez Other [facility] Other 08-26-2023 13:10-0400 SaO2% (BldA) [Mass fraction] 99 % Selene [place] Other [facility] Other 08-26-2023 13:10-0400 Systolic blood pressure 142 mm[Hg] Selene [place] Other [facility] Other 05-31-2022 18:00-0400 Body height 157.48 cm Rose De Other [facility] Other 05-31-2022 18:00-0400 Body mass index (BMI) [Ratio] 45.72 kg/m2 Rose De Other [facility] Other 05-31-2022 18:00-0400 Body temperature 98.3 [degF] Rose De Other [facility] Other 05-31-2022 18:00-0400 Body weight 113.4 kg Rose De Other [facility] Other 05-31-2022 18:00-0400 Respiratory rate 18 /min Rose De Other [facility] Other 05-31-2022 18:00-0400 SaO2% (BldA) [Mass fraction] 95 % Rose De Other [facility] Other 09-10-2021 13:45-0400 Body height 157.48 cm Selene Michelle Other [facility] Other 09-10-2021 13:45-0400 Body mass index (BMI) [Ratio] 45.72 kg/m2 Selene [place] Other [facility] Other 09-10-2021 13:45-0400 Body temperature 96.8 [degF] Selene [place] Other [facility] Other 09-10-2021 13:45-0400 Body weight 113.4 kg Selene [place] Other [facility] Other 09-10-2021 13:45-0400 Respiratory rate 18 /min Selene [place] Other [facility] Other 09-10-2021 13:45-0400 SaO2% (BldA) [Mass fraction] 97 % Selene [place] Other [facility] Other Encounters Encounter Date Encounter Type Care Provider Facility Start: 05-09-2024 End: 05-09-2024 ambulatory MAGDIEL AICHHOLZ Not Available Start: 04-01-2024 End: 04-01-2024 ambulatory ARMONE LORENZANA Not Available Start: 03-07-2024 End: 03-07-2024 ambulatory JOSH PARKINSON Not Available Start: 02-01-2024 End: 02-01-2024 ambulatory MAGDIEL AICHHOLZ Not Available Start: 01-08-2024 End: 01-08-2024 ambulatory KRISTEN BRONSON Not Available Start: 12-21-2023 End: 12-21-2023 ambulatory RAMONE LORENZANA Not Available Start: 12-20-2023 Refill Ramone valentino MD Work Phone: [facility] Comment on above: Myalgia; Numbness and tingling; Weakness Start: 12-19-2023 End: 12-19-2023 ambulatory EBEN DUQUE Not Available Start: 12-15-2023 End: 12-15-2023 Chart abstracting Kristen Bronson [facility] Work Phone: [facility] Comment on above: Bipolar II disorder, most recent episode major depressive ([facility]/HCC) Start: 12-15-2023 End: 12-15-2023 ambulatory KRISTEN BRONSON Not Available Start: 11-23-2023 End: 11-23-2023 ambulatory RAMONE LORENZANA Not Available Start: 11-02-2023 End: 11-02-2023 ambulatory RAMONE W LORENZANA Not Available Start: 09-28-2023 End: 09-28-2023 ambulatory RAMONE W LORENZANA Not Available Start: 08-26-2023 End: 08-26-2023 ambulatory Selene [place] Other [facility] Other Start: 08-26-2023 Office outpatient vi sit 15 minutes Selene [place] [facility] [place] Start: 05-23-2023 End: 05-23-2023 [facility] Start: 04-11-2023 Letter encounter Lili black Start: 03-21-2023 End: 03-22-2023 ambulatory FEATHER MIXER MAGDIEL AICHHOLZ Facility:H1 Start: 01-23-2023 End: 01-23-2023 ambulatory FEATHER MIXER MAGDIEL AICHHOLZ Facility:[facility]1 Start: 01-12-2023 End: 01-13-2023 ambulatory FEATHER MIXER MAGDIEL AICHHOLZ Facility:[facility]1 Start: 01-12-2023 Letter encounter roRui black Start: 08-09-2022 End: 08-10-2022 ambulatory SLADE FONG . Facility:[facility] Start: 07-19-2022 End: 07-20-2022 ambulatory FEATHER MIXER MAGDIEL AICHHOLZ Facility:[facility]1 Start: 07-15-2022 End: 07-16-2022 ambulatory FEATHER MIXER MAGDIEL AICHHOLZ Facility:H1 Start: 07-10-2022 End: 07-11-2022 ambulatory FEATHER MIXER MAGDIEL AICHHOLZ Facility:[facility]1 Start: 07-05-2022 End: 07-05-2022 Phys/qhp telephone evaluation 21-30 min Lucía Kvng X [employer]AM[employer] Work Phone: [facility] Comment on above: Chest pain, unspecif ied type (Primary Dx); [id number] condition Start: 07-05-2022 End: 07-08-2022 ambulatory UNKNOWN PROVIDER Facility:[facility] Start: 06-30-2022 End: 07-01-2022 ambulatory FEATHER MIXER MAGDIEL YANET Facility:H1 Start: 06-15-2022 End: 06-16-2022 ambulatory FEATHER MIXER MAGDIEL AICRuiHOLZ Facility:H1 Start: 06-04-2022 End: 06-04-2022 ambulatory FEATHER MIXER MAGDIEL AICRuiHOLZ Facility:H1 Start: 05-31-2022 End: 05-31-2022 ambulatory Rose De Other [place] [employer] Other Start: 05-31-2022 Office outpatient vi sit 25 minutes Rose De [facility] [place] Start: 05-15-2022 End: 05-15-2022 ambulatory FEATHER MIXER MAGDIEL YANET Facility:H1 Start: 05-04-2022 End: 05-04-2022 ambulatory ALEJANDRA PHELPS . Facility: Start: 04-04-2022 Letter encounter Lili black Start: 03-24-2022 End: 03-24-2022 Phys/qhp telephone evaluation 11-20 min Lucía Calderon X [employer] Work Phone: [facility] Comment on above: Shortness of breath (Primary Dx); [id number] condition Start: 12-28-2021 End: 12-28-2021 Emergency department patient visit Ricardo Ricardo Facility:[facility] Start: 09-10-2021 (URG) Urgent Care Visit Selene cui [facility] [place] Plan of Treatment Date Care Activity Detail Author Start: 12-25-2023 End: 12-25-2023 Clinical Support 12/25/2023 2:00 PM EST Clinical Support [facility] [address] [place] [phone] Kristen Bronson, [facility] [address] [place] [address] [facility] Start: 12-21-2023 End: 12-21-2023 Patient encounter procedure 12/21/2023 2:20 PM EST Office Visit [facility] [address] [place] [address] Ramone Lorenzana MD [address] [facility] [address] [place] [id number] [facility] Start: 12-19-2023 End: 12-19-2023 Patient encounter procedure 12/19/2023 10:00 AM EST Office Visit [facility] [address] [facility] [address] [place] [address] Eben Duque, [facility] [address] [facility] [address] [place] [address] [facility] Start: 12-15-2023 End: 12-15-2023 Clinical Support 12/15/2023 1:00 PM EST Clinical Support [facility] [address] [facility] [address] [place] [address] Kristen Bronson, [facility] [address] [place] [address] [facility] Start: 07-14-2023 Influenza vaccination Influenza Vaccine (#1) [facility] Start: 08-13-2022 Influenza vaccination Influenza Vaccine (#1) [facility] Start: 07-05-2022 End: 07-05-2022 Telemedicine consultation with patient 07/05/2022 Telemedicine Rheumatology Lucía Calderon, [employer] [address] [place] [address] [facility] Start: 2019 Measurement of occult blood in single stool specimen FIT [facility] Start: 2019 Screening for malignant neoplasm of breast Mammography [facility] Start: 2019 Screening for malignant neoplasm of colon CRC Screening [facility] Start: 2019 Shingles (RZV) Vaccine (1 of 2) Shingles (RZV) Vaccine (1 of 2) [facility] Start: 2014 Cholesterol [Mass/volume] in Serum or Plasma Cholesterol [facility] Start: 2014 Screening for malignant neoplasm of colon [facility] Start: 2009 Screening for malignant neoplasm of breast [facility] Start: 1999 Screening for malignant neoplasm of cervix [facility] Start: 1990 Screening for malignant neoplasm of cervix Pap Smear [facility] Start: 1987 Hepatitis C screening Hepatitis C Antibody [facility] Start: 1987 Tetanus + diphtheria + acellular pertussis vaccine (product) Tdap Booster [facility] Start: 1984 HIV screening HIV Test [facility] Start: 1974 COVID-19 Vaccine (#1) COVID-19 Vaccine (#1) [facility] Start: 1974 COVID-19 Vaccine (1) COVID-19 Vaccine (1) [facility] Start: 06-28-1970 COVID-19 Vaccine (#1) [facility] Start: 1969 Screening for malignant neoplasm of colon [facility] Payers Date Payer Category Payer Self-pay 2019 Medicaid [id number] 1970 Unknown [id number] .16.84 [id number] 1970 Unknown [id number] [id number] 1970 Unknown [id number] ..[id number] 0.1.104207.3.579.2.593 1969 Unknown [id number] .16.84 0.1.466197.3.579.2.593 1969 Unknown [id number] ..[id number] 0.1.934856.3.579.2.593 1969 Unknown [id number] 2.16.84 0.1.496045.3.579.2.593 1969 Unknown [id number] 2.16.84 0.1.310522.3.579.2.593 1969 Unknown [id number] 2.16.84 0.1.416068.3.579.2.593 1969 Unknown [id number] 2.16.84 0.1.617848.3.579.2.593 1969 Unknown [id number] 2.16.84 0.1.028221.3.579.2.593 1969 Unknown [id number] 2.16.84 0.1.536356.3.579.2.593 1969 Unknown [id number] .16.84 0.1.944718.3.579.2.593 1969 Unknown [id number] 2.16. 840.1.830920.3.579.2.732 1970 Unknown [id number] 2.16.84 [id number] 1970 Unknown [id number] 2.16.84 0.1.508591.3.579.2.1259 1970 Unknown [id number] 2.16.84 0.1.506025.3.579.2.1259 1970 Unknown [id number] 2.16.84 0.1.783678.3.579.2.1259 1970 Unknown [id number] 2.16.84 0.1.146762.3.579.2.1259 1970 Unknown [id number] 2.16.84 0.1.519581.3.579.2.1259 1970 Unknown [id number] 2.16.84 0.1.441056.3.579.2.1259 1970 Unknown [id number] 2.16.84 0.1.360577.3.579.2.1259 1970 Unknown [id number] 2.16.84 0.1.125571.3.579.2.1259 1970 Unknown [id number] 2.16.840 .1.586463.3.579.2.1259 1970 Unknown [id number] 2.16.840 .1.012460.3.579.2.1259 1959 Unknown [id number] 2.1 [id number] 1959 Unknown [id number] Unknown [id number] 2.16.8 40.1.809852.3.579.2.531 Social History Date Type Detail Facility Start: 01-10-2022 End: 07-27-2023 Tobacco smoking status NHIS Never smoked tobacco [facility] Other Start: 01-10-2022 End: 07-27-2023 Tobacco use and exposure Smokeless tobacco non-user [facility] Start: 03-24-2022 End: 07-05-2022 Alcohol intake [facility]dr[facility] (finding[facility] Start: 1970 Sex Assigned At [facility] file [facility] Start: 11-24-2023 End: 12-21-2023 Sex Assigned At [facility] Other Start: 11-28-2023 End: 12-19-2023 Alcohol intake Lifetime non-drinker (finding) [facility] Start: 11-24-2023 End: 12-21-2023 History of Social function [facility] Start: 12-19-2023 Alcohol Comment caffiene- 3 cu ps either coffee, tea or pop [facility] Clinical Notes 09-10-2021 to 12-15-2023 Kristen Bronson [facility] - 12/15/2023 1:00 PM EST Note Date & Type Note Facility 12-15-2023 History of Presen t illness Narrative Client was present and engaged in session . Client shared her stress of lack of finances. Client reports that she owes rent and her son is not working consistently and was in detox again but would not go to rehab. Client reports he has a girl friend who is going to buy a house and he says he is moving in with her. Client shared that her daughter is doing well and she has been going to see the baby. 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 Assisted client again that she needs to think of herself and to make sure she has enough money before helping her son. Client reports that her daughter is supportive of client not helping him but she feels like she needs to. Client was provided empathy and support. Client is making some progress. Examination Psychiatry: ATTITUDE: cooperative CURRENT HOMICIDALITY:none. CURRENT SUICIDALITY:not presently. DEGREE OF AWARENESS OF SURROUNDINGS:within normal limits. IMPULSE CONTROL good to fair INSIGHT: good INTELLIGENCE (estimate):average. JUDGEMENT: good to fair MOOD: anxious about finances and her son ORIENTATION: yes. Anxiety treatment plan Excessive and persistent daily worry about several life circumstances that has not factual or logical basis Motor tension such as restlessness, tiredness, shakiness, or muscle tension Autonomic hyperactivity such as palpitations, shortness of breath, dry mouth, trouble swallowing, nausea or diarrhea. Hypervigilance such as feeling constantly on edge, experiencing concentration difficulties, having problems falling or staying asleep and exhibiting a general state of irritability. custodial goals Reduce overall level, frequency and intensity of the anxiety so that daily functioning is not impaired. Stablilize anxiety level while increasing ability to function on a daily basis. Resolve the core conflict that is the source of anxiety Enhance ability to handle effectively the full variety of life's anxieties. Short term objectives Build level of trust with client and create a supportive environment that will facilitate a description of their fears. Ask the client to develop and process a list of anderson past and present life conflicts and in starting to work toward their resolution. Reinforce the client's insights into the role of their past emotional pain and present anxiety Teach client grounding techniques to learn how to stay mindful when feeling like a panic attack is starting. Train client in a guided imagery technique to be used for anxiety relief. Assist client in developing behavioral coping and distraction strategies such as exercise, social interactions, and employment for their anxiety Assist client in developing an awareness of the irrational nature of their fears Client will take their medication as prescribed. documented in this encounter [facility] 08-26-2023 Evaluation note Encounter Date Diagnosis Assessment Notes Aug, Left sided sciatica (ICD-10 - M54.32) Drink plenty fluids, get plenty of rest. Continue home medications as prescribed. Take the prednisone as prescribed until gone. Limit your lifting and bending for the next few days. Follow-up with your family physician next week for recheck. [facility] Other 07-11-2023 NoteSubjective Patient ID: Lu Cancino is a 52 y.o. female who presents for Follow-up (Flare up) for long COVID-19 symptoms HPI Lu Cancino is a 52 y.o. female who presents for Follow-up (Flare up) for excessive fatigue and joint pain which she attributes to long COVID-19 symptoms. Patient was initially seen back in 2018 for photosensitivity, carpal tunnel, and elevated MALINI 1:160. Since, this time these symptoms have largely resolved. However, after getting COVID in 2021, patient started to get symptoms including significant edema resolved after 6 months. She reports going to ER last week for concern of swelling and SOB. She also previously reported knee pain that has resolved. Today, patient reports that her symptoms are excessive fatigue that comes in cycles. She reports sleeping multiple days at a time, which has limited her ability to work and make appointments. Additionally, she reports pain and muscle weakness predominantly in hips, shoulders, and neck. She reports that she felt better when she was taking vitamin supplementation and Body [place] energy drinks, but that she had been unable to afford taking these recently. She reports tingling in legs and arms, which she takes gabapentin for. Patient is on a CPAP for breathing. Patient reports she does have anxiety. She plans to go back to counseling and reports that fluoxetine seems to be helping. Review of Systems Constitutional: Positive for activity change, fatigue and unexpected weight change. Musculoskeletal: Positive for arthralgias, joint swelling, myalgias, neck pain and neck stiffness. Objective Visit Vitals BP 125/82 (BP Location: Left arm, Patient Position: Sitting) Pulse 102 Physical Exam Musculoskeletal: Right shoulder: Tenderness present. Left shoulder: Tenderness present. Comments: Tenderness at neck bilaterally Assessment/Plan Lu Cancino is a 52 y.o. female who presents with concerns for excessive fatigue and joint pain which she attributes to long COVID-19 symptoms. Further lab workup will be done to look into possible causes of fatigue. Can consider adjusting gabapentin dose to help with sleep. Patient notes that she has frequent yeast infections in mouth which makes it difficult to take oral medications. Her symptoms are most compatible with fibromyalgia however she had excessive sleepiness and fatigability. Today discussed approaches with increasing physical fitness, mental fitness, low impact aerobic and weight loss. In addition we will obtain screening serology to rule out potential correctable or treatable cause of her symptoms Diagnosis Plan 1. Other fatigue TSH MALINI C-reactive protein Sedimentation rate Comprehensive metabolic panel CBC 2. Vitamin D deficiency Vitamin D 25 hydroxy Orders Placed This Encounter Procedures TSH Standing Status: Future Standing Expiration Date: 05/23/2024 Order Specific Question: Release to Patient Answer: Immediately MALINI Standing Status: Future Standing Expiration Date: 05/23/2024 Order Specific Question: Release to Patient Answer: Immediately C-reactive protein Standing Status: Future Standing Expiration Date: 05/23/2024 Order Specific Question: Release to Patient Answer: Immediately Sedimentation rate Standing Status: Future Standing Expiration Date: 05/23/2024 Order Specific Question: Release to Patient Answer: Immediately Comprehensive metabolic panel Standing Status: Future Standing Expiration Date: 05/23/2024 Order Specific Question: Release to Patient Answer: Immediately CBC Standing Status: Future Standing Expiration Date: 05/23/2024 Order Specific Question: Release to Patient Answer: Immediately Vitamin D 25 hydroxy Standing Status: Future Standing Expiration Date: 05/23/2024 Order Specific Question: Release to Patient Answer: Immediately No results found for this or any previous visit (from the past 36 hour(s)). Follow up in about 6 months (around 11/23/2023). Radha Catalan, [facility] History of Present illness Narrative* Lucía Calderon APRN-CNP - 07/05/2022 1:13 PM EDT Images from the original note were not included. Documentation: Mode: Telephone Patient Patient Work Phone: Patient Cell Preferred phone: [phone] Consent: I confirmed patient understanding of the risks and benefits of telehealth visits and obtained consent to proceed with the telehealth visit. Location of Patient: Home of patient Post Covid Follow Up Telemedicine Visit Note: CC: f/u of [id number] condition Recall: Lu Cancino is a 51 year old female with Post Covid-19 symptoms. Initial symptoms started October 2021 and included runny nose and cough. Persistent symptoms include facial edema and joint pain. HPI/ROS: Had Covid a second time on the 16 of May Has developed some cardiac issues that may be Covid related EKG that was done 07-01-22 showed normal sinus but cannot rule out inferior myocardial infarction, probably old, minimal ST depression, possible right ventricular hypertrophy, abnormal EKG Feels like her chest pain has worsened today Also has neuropathy Patient still resides near [place], [place] PMH/PSH: Reviewed 07/05/22 Allergies: Per list, reviewed 07/05/22 FMH: Reviewed 07/05/22 Wellness/Social: Alcohol: no Tobacco: no Diet: Regular Exercise: no Employment status: Does work Physical Exam: Unable to conduct physical exam as visit was conducted by telephone. Patient alert and oriented to person, place, time, and situation. Patient speaking clearly and without signs of respiratory distress. 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 Initial symptoms started October 2021 and included runny nose and cough. Persistent symptoms include facial edema and joint pain. - Since 03-24-22 tele visit reports no symptom improvement. - Advised to ask her PCP for a Cardiology referral - Advised patient to seek emergency care Follow up in 3 months FLOYD Medina Post Covid Nurse Practitioner documented in this [id number] Evaluation note* Encounter Date Diagnosis Assessment Notes Treatment Notes Treatment Clinical Notes May, Thrush (ICD-10 - B37.0) Patient uses inhaler. Advised to rinse after use. Will send in rx of Nystatin swish and spit to help with symptoms. Keep follow up appointment with PCP. Patient verbalizes understanding and is agreeable with treatment plan May, Persistent cough for 3 weeks or longer (ICD-10 - R05.3) Advised patient that symptoms are post-covid symptoms. Physical exam unremarkable. Will send in rx of prednisone to help with cough until she sees primary care provider. Advised to take medications as prescribed, reviewed side effects of steroid, take with food and plenty of water, finish entire course. Encouraged supportive care as directed, push fluids and rest, may use Tylenol as needed for fever/discomfort, cool mist humidifier. Immediate eval if SOB, difficulty breathing, chest pain, dizziness, or other concerning symptoms. Patient verbalizes understanding and is agreeable to treatment plan [facility] Other 05-12-2022 History of Present illness Narrative* Lucía Calderon APRN-CNP - 03/24/2022 10:03 AM EDT Images from the original note were not included. Documentation: Mode: Telephone Patient Patient Work Phone: Patient Cell Preferred phone: [phone] Consent: I confirmed patient understanding of the risks and benefits of telehealth visits and obtained consent to proceed with the telehealth visit. Location of Patient: Home of patient Post Covid Follow Up Telemedicine Visit Note: CC: f/u of [id number] condition Recall: Lu Cancino is a 51 year old female with Post Covid-19 symptoms. Initial symptoms started October 2021 and included runny nose and cough. Persistent symptoms include facial edema and joint pain. HPI/ROS: Still using oxygen on an as needed basis Facial edema resolved Pulmonary therapy ordered by PCP patient did not go due to fatigue PMH/PSH: Reviewed 03/24/22 Allergies: Per list, reviewed 03/24/22 FMH: Reviewed 03/24/22 Wellness/Social: Alcohol: no Tobacco: no Diet: Regular Exercise: no Employment status: Does work Physical Exam: Unable to conduct physical exam as visit was conducted by telephone. Patient alert and oriented to person, place, time, and situation. Patient speaking clearly and without signs of respiratory distress. 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 Initial symptoms started October 2021 and included runny nose and cough. Persistent symptoms include facial edema and joint pain. - Since 01/10/2022 tele visit reports minimal improvements in symptoms, primarily facial edema. - Will reschedule pulmonary therapy Follow up in 3 months FLOYD Medina Post Covid Nurse Practitioner documented in this [id number] Evaluation note* Encounter Date Diagnosis Assessment Notes Treatment Notes Treatment Clinical Notes Aug, Contact with and (suspected) exposure to other viral communicable diseases (ICD-10 - Z20.828) Aug, Acute sinusitis, recurrence not specified, unspecified location (ICD-10 - J01.90) Drink plenty of fluids, get plenty of rest. Continue home medications as prescribed. Use your Flonase inhaler as prescribed until your symptoms improve. Use your albuterol inhaler as prescribed as needed for cough or shortness of breath. Take the prednisone as prescribed until gone. Follow-up with your family physician if no improvement in 2 to 3 days. Take Tylenol Motrin for aches pains or fevers. Aug, Other Additional time spent conducting pre-visit phone call, screening for symptoms, instructions on social distancing, application and removal of PPE, and cleaning of examination room, equipment and supplies was preformed. Patient education given for testing methodology and results. Patient care instructions given in writting by [facility] document. Additional time spent conducting pre-visit phone call, screening for symptoms, instructions on social distancing, application and removal of PPE, and cleaning of examination room, equipment and supplies was preformed. Patient education given for testing methodology and results. Patient care instructions given in writting by [facility] document. [facility] Other Evaluation note* Diagnosis Shortness of breath- Primary [id number] condition [facility]* Diagnosis Chest pain, unspecified type- Primary [id number]-[id number] condition [facility]* Diagnosis Myalgia Unspecified myalgia and myositis Numbness and tingling Disturbance of skin sensation Weakness Other malaise and fatigue [facility] Diagnosis Bipolar II disorder, most recent episode major depressive (CMS/HCC) Other bipolar disorders [facility] N[facility] - Reported* Type Description Date Medical History Seasonal Allergies Medical History rheumatoid arthritis Surgical History C section X2 Hospitalization History see above [facility] Other History general Narrative - Reported* Type Description Date Medical History Seasonal Allergies Medical History rheumatoid arthritis Medical History neuropathy Surgical History C section X2 Hospitalization History Covid 2021 [facility] Other Summary Purpose Family History No Family History Records FoundNo Family History Records FoundNo Family History Records FoundNo Family History Records FoundNo Family History Records FoundNo Family History Records Found Advance Directives No Advanced Directives Records FoundNo Advanced Directives Records FoundNo Advanced Directives Records FoundNo Advanced Directives Records FoundNo Advanced Directives Records FoundNo Advanced Directives Records Found Additional Source Comments INFORMATION SOURCE (unrecogn ized section and content) DATE CREATED AUTHOR 04/18/2019 [facility] DATE CREATED AUTHOR AUTHOR'S ORGANIZ ATION 12/17/2022 [facility] DATE CREATED AUTHOR AUTHOR'S ORGANIZ ATION 03/24/2023 [facility] DATE CREATED AUTHOR AUTHOR'S ORGANIZ ATION 04/21/2023 [facility] DATE CREATED AUTHOR AUTHOR'S ORGANIZ ATION 05/25/2023 [facility] DATE CREATED AUTHOR AUTHOR'S ORGANIZ ATION 05/11/2024 [facility] EPIC Reason for Visit (unrecogniz ed section and content) Reason Comments Shortness of breath Reason Comments Chest symptoms/complaints Reason Onset Date Comments Med Refill 12/20/2023 FOR RECORDS PERTAINING TO PATIENTS WHO ARE OR HAVE BEEN ENROLLED IN A CHEMICAL DEPENDENCY/SUBSTANCEABUSE PROGRAM, SOME INFORMATION MAY BE OMITTED. This clinical summary was aggregated from multiple sources. Caution should be exercised in using it in the provision of clinical care. This summary normalizes information from multiple sources, and as a consequence, information in this document may materially change the coding, format and clinical context of patient data. In addition, data may be omitted in some cases. CLINICAL DECISIONS SHOULD BE BASED ON THE PRIMARY CLINICAL RECORDS. [employer] provides no warranty or guarantee of the accuracy or completeness of information in this document.
--- NOTE | 2024-05-19 12:59 | ECG_ITS ---
[facility] Test Date: 2024-05-19 Pat Name: GREG FIELD Department: Room: - Gender: Female Striper: : 1970 Requested By: MAGDIEL HOLT Order Number: [id number] Reading MD: SANTOS MCCANN Measurements Intervals [place] Rate: 73 P: 35 OR: 166 QRS: 76 QRSD: 90 T: 9 QT: 402 QTc: 429 Interpretive Statements 1100 Sinus rhythm 4664 Twave abnormality, possible inferolateral ischemia 9150 abnormal ECG Compared to ECG 05/15/2023 14:39:06 Possible ischemia now present Electronically Signed On 05-20-2024 6:53:58 EDT by SANTSO MCCANN
[2024-05-19 14:58] LABS: Basophils Percent Auto 0.5 % (0.2-2.0); Eosinophils Absolute Auto 0.1 10^3/uL (0.0-0.7); Eosinophils Percent Auto 2.5 % (0.9-7.0); Hematocrit 39.3 % (36.0-48.0); Hemoglobin 13.3 g/dL (12.0-16.0); Immature Granulocytes Abs Auto 0.02 10^3/uL (0.00-0.03); Immature Granulocytes Pct Auto 0.4 % (0.0-0.5); Lymphocytes Absolute Auto 2.1 10^3/uL (1.2-3.8); Lymphocytes Percent Auto 37.4 % (20.5-60.0); Mean Corpuscular HGB Conc 33.8 g/dL (29.9-35.2); Mean Corpuscular Hemoglobin 30.4 pg (26.7-34.0); Mean Corpuscular Volume 89.7 fL (81.0-99.0); Mean Platelet Volume 11.3 fL (9.5-13.5); Monocytes Absolute Auto 0.4 10^3/uL (0.3-0.8); Monocytes Percent Auto 7.3 % (1.7-12.0); Neutrophils Absolute Auto 2.9 10^3/uL (1.4-6.5); Neutrophils Percent Auto 51.9 % (43.0-75.0); Platelet Count 296 10^3/uL (150-450); Red Blood Count 4.38 10^6/uL (4.20-5.40); Red Cell Distribution Width 12.7 % (11.0-15.0); White Blood Count 5.5 10^3/uL (4.0-11.0)
[2024-05-19 15:17] LABS: Anion Gap 14.7
[2024-05-19 15:20] LABS: Alanine Aminotransferase 34 U/L (14-59); Albumin Level 3.6 g/dL (3.4-5.0); Alkaline Phosphatase 70 U/L (46-116); Aspartate Amino Transferase 15 U/L (15-37); BUN Creatinine Ratio 9.3; Bilirubin Total 0.2 mg/dL (0.2-1.0); Calcium 8.8 mg/dL (8.5-10.1); Carbon Dioxide 26.1 mmol/L (21.0-32.0); Chloride 105 mmol/L (98-107); Estimated GFR (African America >60 (>=60); Estimated GFR (Non-African Ame >60 (>=60); Globulin 3.6 g/dL; Glucose 136 mg/dL (74-106); Magnesium 2.2 mg/dL (1.8-2.4); Potassium 3.8 mmol/L (3.5-5.1); Sodium 142 mmol/L (136-145); Total Protein 7.2 g/dL (6.4-8.2); Troponin I High Sensitivity 5.2 pg/mL (4.0-51.3)
--- NOTE | 2024-05-19 15:32 | ED_ITS ---
<Statement entered by Tricia Ca MD - 05/19/24 18:08> This documentation has been reviewed and approved. HPI HPI - General Adult General Chief complaint: Shortness of Breath/Dyspnea Stated complaint: SOB Time Seen by Provider: 05/19/24 14:29 Source: patient Mode of arrival: walk-in History of Present Illness HPI narrative: Patient is a 53-year-old female who presents to the emergency department for a 1 week history of generalized weakness and fatigue associated with exertional dyspnea. She states she has a history of long COVID for the last 3 years, she is supposed to see a local bicycle repairer, she states she missed the appointment because she was not feeling well. She does not take any chronic medications for her lungs. She states she has had heaviness in the chest over the last week. She has not had any fevers, vomiting. She reports decreased oral intake and difficulty getting around her home due to how weak she feels. She has had no sputum production or hemoptysis although she states she has had a minimal cough. No peripheral edema. She has no kwadwo chest pain or abdominal pain. Related Data Home Medications ?Medication ?Instructions ?Recorded ?Confirmed fluoxetine 40 mg capsule 40 mg PO DAILY 05/15/23 05/15/23 furosemide 20 mg tablet 10 mg PO DAILY 05/15/23 05/15/23 gabapentin 100 mg capsule 100 mg PO .hs 05/15/23 05/15/23 metformin 500 mg tablet,extended 500 mg PO DAILY 05/15/23 05/15/23 release 24 hr nabumetone 500 mg tablet 500 mg PO BID 05/15/23 05/15/23 pantoprazole 40 mg tablet,delayed 40 mg PO DAILY 05/15/23 05/15/23 release Previous Rx's ?Medication ?Instructions ?Recorded hydralazine 25 mg tablet 25 mg PO Q12H PRN anxiety #20 tabs 09/23/23 hydroxyzine HCl 25 mg tablet 25 mg PO Q12H PRN anxiety #20 tabs 09/23/23 Allergies Allergy/AdvReac Type Severity Reaction Status Date / Time influenza A (H1N1) virus AdvReac Mild Verified 05/15/23 14:44 vaccine [id number] 2008 [From influenza A (H1N1)] Tetanus Vaccines and Toxoid AdvReac Mild Verified 05/15/23 14:44 Opioid HPI Opioid Management Most Recent Opioid Data: No Data to Display Review of Systems ROS Constitutional Reports: fatigue and malaise; Denies: fever or chills Ears, nose, mouth, and throat Denies: throat pain or nasal congestion Cardiovascular Denies: chest pain Respiratory Reports: shortness of breath and cough Gastrointestinal Denies: nausea or vomiting Musculoskeletal Denies: back pain Integumentary/Breast Denies: rash Neurological Denies: headache Hematologic/Lymphatic Denies: easy bruising or easy bleeding PFSH PFS Social History Smoking status: Never smoker Exam Narrative Exam Narrative: Gen.: Awake, alert, in no distress Head: Normocephalic, atraumatic ENT: Moist mucous membranes Respiratory: No respiratory distress, lungs clear bilaterally; No wheezing or rhonchi, speaking easily in complete sentences Cardio: Regular rate and rhythm Extremities: Moves extremities equally, no pedal edema Psych: Normal mood and affect Neuro: No focal neuro deficit Skin: Warm, dry, intact Constitutional Vital Signs, click to edit/add: Last Vital Signs Temp 98.3 F 05/19/24 12:47 Pulse 66 05/19/24 15:47 Resp 20 05/19/24 15:40 BP 176/104 H 05/19/24 12:51 Pulse Ox 97 05/19/24 15:47 O2 Del Method Room Air 05/19/24 15:47 Course Vital Signs Vital signs: Vital Signs Temperature 98.3 F 05/19/24 12:47 Pulse Rate 75 05/19/24 12:47 Respiratory Rate 20 05/19/24 12:47 Blood Pressure 176/104 H 05/19/24 12:47 Pulse Oximetry 97 05/19/24 12:47 Oxygen Delivery Method Room Air 05/19/24 12:47 Temperature 98.3 F 05/19/24 12:47 Pulse Rate 66 05/19/24 15:47 Respiratory Rate 20 05/19/24 15:40 Blood Pressure 176/104 H 05/19/24 12:51 Pulse Oximetry 97 05/19/24 15:47 Oxygen Delivery Method Room Air 05/19/24 15:47 Medical Decision Making MDM Narrative Medical decision making narrative: Treated with IV fluids, albuterol breathing treatment. She has normal vital signs, normal troponin, BNP and D-dimer with unremarkable chest x-ray. She is in no distress in the ER. She is discharged home to follow-up with her PCP and return to the ER if symptoms change or worsen. SUPERVISED APC VISIT, PHYSICIAN ATTESTATION: Based on the medical record the care appears appropriate. ? Medical Records Medical records reviewed: Yes I reviewed the patient's medical records Lab Data Lab results reviewed: Yes I reviewed the patient's lab results Labs: Lab Results 05/19/24 05/19/24 Range/Units 14:00 14:15 WBC 5.5 (4.0-11.0) 10^3/uL RBC 4.38 (4.20-5.40) 10^6/uL Hgb 13.3 (12.0-16.0) g/dL Hct 39.3 (36.0-48.0) % MCV 89.7 (81.0-99.0) fL MCH 30.4 (26.7-34.0) pg MCHC 33.8 (29.9-35.2) g/dL RDW 12.7 (11.0-15.0) % Plt Count 296 (150-450) 10^3/uL MPV 11.3 (9.5-13.5) fL Neut % (Auto) 51.9 (43.0-75.0) % Lymph % (Auto) 37.4 (20.5-60.0) % [place] % (Auto) 7.3 (1.7-12.0) % Eos % (Auto) 2.5 (0.9-7.0) % Baso % (Auto) 0.5 (0.2-2.0) % Neut # (Auto) 2.9 (1.4-6.5) 10^3/uL Lymph # (Auto) 2.1 (1.2-3.8) 10^3/uL [place] # (Auto) 0.4 (0.3-0.8) 10^3/uL Eos # (Auto) 0.1 (0.0-0.7) 10^3/uL Baso # (Auto) 0.0 (0.0-0.1) 10^3/uL Abs Immat Gran (auto) 0.02 (0.00-0.03) 10^3/uL Imm/Tot Granulo (auto) 0.4 (0.0-0.5) % D-Dimer 0.54 (<=0.59) mg/L FEU Sodium 142 (136-145) mmol/L Potassium 3.8 (3.5-5.1) mmol/L Chloride 105 (98-107) mmol/L Carbon Dioxide 26.1 (21.0-32.0) mmol/L Anion Gap 14.7 BUN 7.0 (7.0-18.0) mg/dL Creatinine 0.75 (0.55-1.02) mg/dL Est GFR ( Amer) >60 (>=60) Est GFR (Non-Af Amer) >60 (>=60) BUN/Creatinine Ratio 9.3 Glucose 136 H (74-106) mg/dL Calcium 8.8 (8.5-10.1) mg/dL Magnesium 2.2 (1.8-2.4) mg/dL Total Bilirubin 0.2 (0.2-1.0) mg/dL AST 15 (15-37) U/L ALT 34 (14-59) U/L Alkaline Phosphatase 70 (46-116) U/L Troponin I High Sens 5.2 (4.0-51.3) pg/mL NT-Pro-B Natriuret Pep 190.0 (<=900.0) pg/mL Total Protein 7.2 (6.4-8.2) g/dL Albumin 3.6 (3.4-5.0) g/dL Globulin 3.6 g/dL Albumin/Globulin Ratio 1.0 TSH 2.629 (0.358-3.740) uIU/mL Urine Color Lt. yellow (YELLOW) Urine Clarity Clear (CLEAR) Urine pH 6.0 (5.0-9.0) Ur Specific [place] <=1.005 A (1.005-1.025) Urine Protein Negative (NEG/TRACE) mg/dL Urine Glucose (UA) Negative (NEGATIVE) mg/dL Urine Ketones Negative (NEGATIVE) mg/dL Urine Occult Blood Negative (NEGATIVE) Urine Nitrite Negative (NEGATIVE) Urine Bilirubin Negative (NEGATIVE) Urine Urobilinogen 0.2 (0.2-1.0) EU/dL Ur Leukocyte Esterase Negative (NEGATIVE) Imaging Data Chest x-ray: Attestation: I have reviewed the pertinent imaging results. ECG Data Attestation: I personally reviewed and interpreted this ECG as follows: (Normal sinus rhythm at a rate of 73, no acute ST elevation or ectopy. EKG reviewed by attending physician) Discharge Plan Discharge Stand Alone Forms: Portal Instructions Chief Complaint: Shortness of Breath/Dyspnea Clinical Impression: Shortness of breath, Fatigue Patient Disposition: Home, Self-Care Time of Disposition Decision: 16:44 Condition: Good Prescriptions / Home Meds: No Action fluoxetine 40 mg capsule 40 mg PO DAILY pantoprazole 40 mg tablet,delayed release (DR/EC) 40 mg PO DAILY furosemide 20 mg tablet 10 mg PO DAILY gabapentin 100 mg capsule 100 mg PO .hs metformin 500 mg tablet extended release 24 hr 500 mg PO DAILY nabumetone 500 mg tablet 500 mg PO BID hydralazine 25 mg tablet 25 mg PO Q12H PRN (Reason: anxiety) Qty: 20 0RF hydroxyzine HCl 25 mg tablet 25 mg PO Q12H PRN (Reason: anxiety) Qty: 20 0RF Print Language: Tamazight Instructions: Fatigue (ED), Shortness of Breath (ED) Referrals: Melani Deras GEOSPATIAL SPECIALIST [Primary Care Provider] - 1 week
[2024-05-19] MEDS: ALBUTEROL SULFATE 2.5 MG/3 ML VIAL NEB IH (15:46)
[2024-05-19 15:48] LABS: D Dimer 0.54 mg/L FEU (<=0.59)
--- NOTE | 2024-05-19 15:57 | XR_ITS ---
The [address] [address] Patient Name: GREG FIELD MRN: [id number] date: 1970 Sex: F Assigned Patient Location: ED.MAIN Current Patient Location: Accession/Order Number: [id number] Exam Date: 05/19/2024 16:20 Report Date: 05/19/2024 17:16 At the request of: ELIUD KNIGHT Procedure: XR chest 1V EXAM: XR chest 1V HISTORY: Shortness of breath COMPARISON: 05/15/2023 TECHNIQUE: Chest X-ray AP, 1 view FINDINGS: Support devices: None. Lungs/pleura: No consolidation, effusion, or pneumothorax. Heart and mediastinum: Normal contours. Mild pulmonary vascular congestion. Bones: No acute abnormality identified. XR/XR chest 1V Impression: Mild pulmonary vascular congestion. Electronically authenticated by: DELFINO COLLADO Date: 05/19/2024 17:16
[2024-05-19 16:06] LABS: Thyroid Stimulating Hormone 2.629 uIU/mL (0.358-3.740)
[2024-05-19] MEDS: 0.9 % SODIUM CHLORIDE 1,000 ML 1000 ML IV (16:08)
[2024-05-19 16:22] LABS: Bilirubin Urine NEGATIVE (NEGATIVE); Blood Urine NEGATIVE (NEGATIVE); Clarity Urine CLEAR (CLEAR); Color Urine LT. YELLOW (YELLOW); Glucose Urine UA NEGATIVE (NEGATIVE); Ketones Urine NEGATIVE (NEGATIVE); Leukocyte Esterase Urine NEGATIVE (NEGATIVE); Nitrite Urine NEGATIVE (NEGATIVE); Protein Urine NEGATIVE (NEG/TRACE); Specific Gravity Urine <=1.005 (1.005-1.025); Urobilinogen Urine 0.2 EU/dL (0.2-1.0)
[2024-05-19 16:27] LABS: Urine Microscopic Indicated NO
== END 2024-05-19 16:58 | disposition home or self-care (01) ==
PROVIDERS: Physician Assistant; Emergency Provider Emergency Medicine; PCP Nurse Practitioner
DX: R53.83 Other fatigue (principal); R06.02 Shortness of breath; U09.9 Post COVID-19 condition, unspecified
CPT/HCPCS: 36415; 71045; 80053; 81003; 83735; 83880; 84443; 84484; 85025; 85378; 93005; 94640; 99285

== ENCOUNTER 2024-06-16 09:59 | Emergency (ER) | payer OTHER, SELFPAY ==
[2024-06-16 10:03] VITALS: BP 152/78; PULSE 77; TEMP 36.9; O2SAT 98; BMI 47.6
--- OUTSIDE RECORDS SUMMARY | 2024-06-16 10:08 | XMS_ITS | CCD ---
Author Organization [facility] Care Team Providers Care Chaplain Name Role Phone Unavailable Primary Care Provider UnavailSelene Garrison Unavailable Rose De Unavailable Unavailable Primary Care Provider UnavailRicardo Sands Attending Unavailable Ricardo Ricardo Admitting Unavailable NadMahesh walters Primary Care Unavailable Unavailable Primary Care Provider Unavailcolby hua AICHHOLZ, FINISHER BRUSH MAGDIEL Primary Care Unavailable AICHHOLZ, FINISHER BRUSH MAGDIEL Attending Unavailable AICHHOLZ, FINISHER BRUSH MAGDIEL Admitting Unavailable AICHHOLZ, FINISHER BRUSH MAGDIEL Consulting Unavailable AICHHOLZ, FINISHER BRUSH MAGDIEL Consulting Unavailable AICHHOLZ, FINISHER BRUSH MAGDIEL Attending Unavailable AICHHOLZ, FINISHER BRUSH MAGDIEL Admitting Unavailable AICHHOLZ, FINISHER BRUSH MAGDIEL Primary Care Unavailable AICHHOLZ, FINISHER BRUSH MAGDIEL Primary Care Unavailable LEES ., DR RADHA Hua Attending Unavailable LEES ., DR RADHA Hua Admitting Unavailable LEES .DR RADHA Consulting Unavailable MARCOS NEWBERRY Consulting Unavailable SERAFIN, MAGDIEL Consulting Unavailable VANESSA MARTINEZ Unavailable AICHHOLZ, FINISHER BRUSH MAGDIEL Admitting Unavailable AICHHOLZ, FINISHER BRUSH MAGDIEL Primary Care Unavailable AICHHOLZ, FINISHER BRUSH MAGDIEL Attending Unavailable DR VANESSA PRESLEY V Consulting Unavailable AICHHOLZ, FINISHER BRUSH MAGDIEL Consulting Unavailable AICHHOLZ, FINISHER BRUSH MAGDIEL Admitting Unavailable AICHHOLZ, FINISHER BRUSH MAGDIEL Primary Care Unavailable AICHHOLZ, FINISHER BRUSH MAGDIEL Consulting Unavailable AICHHOLZ, FINISHER BRUSH MAGDIEL Attending Unavailable AICHHOLZ, FINISHER BRUSH MAGDIEL Attending Unavailable AICHHOLZ, FINISHER BRUSH MAGDIEL Admitting Unavailable DR VANESSA PRESLEY V Consulting Unavailable AICHHOLZ, FINISHER BRUSH MAGDIEL Primary Care Unavailable AICHHOLZ, FINISHER BRUSH MAGDIEL Consulting Unavailable AICHHOLZ, FINISHER BRUSH MAGDIEL Admitting Unavailable AICHHOLZ, FINISHER BRUSH MAGDIEL Consulting Unavailable AICHHOLZ, FINISHER BRUSH MAGDIEL Attending Unavailable AICHHOLZ, FINISHER BRUSH MAGDIEL Primary Care Unavailable SAMSA ., SLADE Attending Unavailable SAMSA ., SLADE Admitting Unavailable AICHHOLZ, FINISHER BRUSH MAGDIEL Primary Care Unavailable DR PASTOR ESPANA Consulting Unavailable SAMSA ., SLADE Consulting Unavailable AICHHOLZ, FINISHER BRUSH MAGDIEL Admitting Unavailable AICHHOLZ, FINISHER BRUSH MAGDIEL Consulting Unavailable AICHHOLZ, FINISHER BRUSH MAGDIEL Attending Unavailable AICHHOLZ, FINISHER BRUSH MAGDIEL Primary Care Unavailable AICHHOLZ, FINISHER BRUSH MAGDIEL Primary Care Unavailable PAY ., DR BECK Attending Unavailable PAY ., DR BECK Admitting Unavailable PAY ., DR BECK Consulting Unavailable GRECHNY ., KARTHIKEYAN KLINE Consulting Unavailabl e AICHHOLZ, FINISHER BRUSH MAGDIEL Primary Care Unavailable ANTONIA ., KARTHIKEYAN KLINE Consulting Unavailabl e LENIN ., ALEJANDRA Attending Unavailable LENIN ., ALEJANDRA Admitting Unavailable LENIN ., ALEJANDRA Admitting Unavailable AICHHOLZ, FINISHER BRUSH MAGDIEL Primary Care Unavailable MARCOS NEWBERRY Consulting Unavailable LENIN ., ALEJANDRA Attending Unavailable LENIN ., ALEJANDRA Consulting Unavailable PROVIDER, UNKNOWN Attending Unavailable PROVIDER, UNKNOWN Admitting Unavailable PATIENT, SELF Referring Unavailable FRACISCO SKAGGS Attending Unavailable Unavailable Primary Care Provider Unavailcolby e RAMONE LORENZANA Attending Unavailable KRISTEN BRONSON Attending Unavailable EBEN DUQUE Attending Unavailab le AICHHOLZ, MAGDIEL Referring Unavailable RAMONE LORENZANA Attending Unavailable KRISTEN BRONSON Attending Unavailable AICHHOLZ, MAGDIEL Attending Unavailable JOSH PARKINSON Attending Unavailable RAMONE LORENZANA Attending Unavailable AICHHOLZ, MAGDIEL Attending Unavailable AICHHOLZ, MAGDIEL Attending Unavailable AICHHOLZ, MAGDIEL Referring Unavailable JEREMIAH HANSEN Attending Unavailable JEREMIAH HANSEN Referring Unavailable RAMONE LORENZANA Attending Unavailable RAMONE LORENZANA Attending Unavailable RAMONE LORENZANA Attending Unavailable RAMONE LORENZANA Referring Unavailable Allergies Allergy Classification Reported Allergen(s) Allergy Type Date of Onset Reaction(s) Facility (10 sources) Tetanus vaccine; Translations: [TETANUS TOXOIDS] Propensity to adverse reactions to drug 2 [facility] Work Phone: (1 source) Allopurinol Drug Allergy 3 [facility] Repository (1 source) TETANUS AND DIPHTHERIA TOXOIDS; Translations: [TETANUS AND DIPHTHERIA TOXOIDS] Propensity to adverse reactions to drug (disorder) 2 [facility] Repository Medications Current Medications Medication Drug Class(es) Dates Sig (Normalized) Sig (Original) [id number] 200 actuat albuterol 0.09 mg/actuat metered dose [...] by mouth in the morning. 0 Active [id number] 0.3 ml EPINEPHrine 1 mg/ml auto-injector (4 [...] take 10 mg by mouth in the [facility] furosemide (Lasix) 10 MG/ML solution Indications: Hypertension [...] 30 g 11 12/06/2023 01/05/2024 Active nystatin 025700 unt/ml oral suspension (1 source) Polyene Antifungal Start: 05-31-2022 take 4 mL by mouth four times daily Nystatin 624284 UNIT/ML 4 ml swish and spit Mouth/Throat [...] 1.5 mg/ml oral solution (3 sources) Uncompetitive S-efccbn-J-aspartate Receptor Antagonist, Sigma-1 Agonist Start: 06-26-2021 [place] DM 7.5-7.5 MG/5ML 10 ml Orally every [...] 09-26-2023 Chronic Other aftercare (1 source) Other rodent exterminator (current) drug therapy; Translations: [OTH PRISON CURRENT DRUG THERAPY] Onset: 01-25-2023 Episodic Other aftercare (1 source) 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; Translations: [PRISON USE ORAL HYPOGLYCEMIC DX] Onset: 01-25-2023 Episodic Other connective tissue disease (5 sources) Muscle pain; Translations: [Myalgia, unspecified site] Onset: 09-28-2023 09-28-2023 Episodic Other connective tissue disease (1 source) Cramp; Translations: [Cramp and spasm] Onset: 12-21-2023 12-21-2023 Episodic Other infections; including parasitic (2 sources) Post-viral disorder; 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 The complete report is available in the patient's medical record. If you cannot access the medical record, please contact the sending organization for a detailed fax or copy. EXAMINATION: BI MAMMOGRAM SCREENING TOMOSYNTHESIS BILATERAL CLINICAL HISTORY:breast cancer screening COMPARISON: August 06, 2019. RESULT: Density: Almost entirely fatty [1] There is no suspicious mass, asymmetry, architectural distortion, or calcification. Overall appearance stable. IMPRESSION: BIRADS 1 - Negative Follow-up: Routine Screening Mamm Board Certified Radiologists. Accredited by the ACR and FDA. MAMMOGRAPHY IS VERY IMPORTANT TO YOUR HEALTH. THE [place] [employer] GUIDELINES RECOMMEND THAT WOMEN 40 YEARS OF AGE AND OLDER SHOULD HAVE A MAMMOGRAM EVERY YEAR. A REMINDER LETTER WILL BE SENT AT THE APPROPRIATE TIME. THIS FACILITY UTILIZES A REMINDER SYSTEM TO ENSURE ALL PATIENTS RECEIVE REMINDER NOTIFICATIONS AT THE APPROPRIATE TIME BASED ON THE RECOMMENDATIONS OF THIS EXAM. THIS INCLUDES REMINDERS FOR ROUTINE SCREENING MAMMOGRAMS, DIAGNOSTIC MAMMOGRAMS IN WHICH THE PATIENT IS ASKED TO RETURN FOR ADDITIONAL VIEWS, OR OTHER BREAST IMAGING INTERVENTIONS WHEN APPROPRIATE. THE PATIENT WILL BE PLACED IN THE APPROPRIATE REMINDER SYSTEM INCLUDING A REMINDER AT THE APPROPRIATE TIME FOR ANY PENDING ADDITIONAL VIEWS. TRANSCRIBED BY: ELECTRONICALLY SIGNED BY: Tj Stevenson MD Normal Not Available Follow-Upon 05-23-2023 Follow-Up [id number] Lu Cancino 1970 F Date Provider Department Center 05/23/2023 [facility] Jos[facility]ito [facility] Family History Family history unknown: Yes Level of Service:61479 [place] OFFICE/OUTPATIENT ESTABLISHED MOD [facility] 30-39 MIN Reason for Visit and Comments: Follow-up [188859] - Flare up Normal [facility] XR KUB 1 VIEWon 03-22-2023 XR KUB [...] VANESSA PRESLEY Date: 2023-03-22 07:45 Normal [facility] UA RANDOM W/MICROSCOPICon BACTERIA TRACE Abnormal NONE SEEN [facility] Comment on above: Performed By: #### U AMIC #### [facility] [address] [address] [address] Bertram Paulino Bilirubin Ql (U) Negative Normal NEGATIVE [facility] Comment on above: Performed By: #### U AMIC #### [facility] [address] [address] [address] Bertram Paulino CAST NONE SEEN Normal NONE SEEN [facility] Comment on above: Performed By: #### U AMIC #### [facility] [address] [address] [address] Bertram Paulino Clarity (U) CLEAR Normal CLEAR [facility] Comment on above: Performed By: #### U AMIC #### [facility] [address] [address] [address] Bertram Paulino Color (U) LT. YELLOW Normal YELLOW [facility] Comment on above: Performed By: #### U AMIC #### [facility] [address] [address] [address] Bertram Paulino Crystals LM Nom (Urine sed) NONE SEEN Normal NONE SEEN [facility] Comment on above: Performed By: #### U AMIC #### [facility] [address] [address] [address] Bertram Paulino Epithelial cells LM Ql (Urine sed) RARE Normal NONE SEEN /RARE [facility] Comment on above: Performed By: #### U AMIC #### [facility] [address] [place] [address] Dr. Bertram Paulino Glucose Ql (U) Negative Normal NEGATIVE [facility] Comment on above: Performed By: #### U AMIC #### [facility] [address] [place] [address] Dr. Bertram Paulino Hemoglobin Ql (U) Negative Normal NEGATIVE [facility] Comment on above: Performed By: #### U AMIC #### [facility] [address] [place] [address] Dr. Bertram Paulino Ketones Ql (U) Negative Normal NEGATIVE [facility] Comment on above: Performed By: #### U AMIC #### [facility] [address] [place] [address] Dr. Bertram Paulino LEUKOCYTES Negative Normal NEGATIVE [facility] Comment on above: Performed By: #### U AMIC #### [facility] [address] [place] [address] Dr. Bertram Paulino MUCOUS NONE SEEN Normal NONE SEEN [facility] Comment on above: Performed By: #### U AMIC #### [facility] [address] [place] [address] Dr. Bertram Paulino Nitrite Ql (U) Negative Normal NEGATIVE [facility] Comment on above: Performed By: #### U AMIC #### [facility] [address] [address] [address] Bertram Paulino pH (U) 8.5 [pH] Normal 5-9 [facility] Comment on above: Performed By: #### U AMIC #### [facility] [address] [place] [address] Dr. Bertram Paulino RBC 0-2 Normal 0-2 [facility] Comment on above: Performed By: #### U AMIC #### [facility] [address] [place] [address] Dr. Bertram Paulino SPEC GRAVITY 1.015 Normal 1.005-<=1.025 [facility] Comment on above: Performed By: #### U AMIC #### [facility] [address] [place] [address] Dr. Bertram Paulino UA PROTEIN Negative Normal NEGATIVE/ TRACE [facility] Comment on above: Performed By: #### U AMIC #### [facility] [address] [place] [address] Dr. Bertram Paulino Urobilinogen Qn (U) 0.2 {Yazmin'U}/dL Normal 0.2 - 1. 0 [facility] Comment on above: Performed By: #### U AMIC #### [facility] [address] [place] [address] Dr. Bertram Paulino WBC NONE SEEN Normal NONE SEEN [facility] Comment on above: Performed By: #### U AMIC #### [facility] [address] [place] [address] Dr. Bertram Paulino CBC AUTO DIFFon 01-23-2023 BASO # 0.0 103/ul Normal 0.0-0.1 [facility] Comment on above: Performed By: #### C MP, LIPID, TSH #### [facility] [address] [place] [address] Dr. Bertram Paulino Basophils/100 WBC (Bld) 0.5 % Normal 0.2-2.0 [facility] Comment on above: Performed By: #### C MP, LIPID, TSH #### [facility] [address] [address] [address] Bertram Paulino EO # 0.1 103/ul Normal 0.0-0.7 [facility] Comment on above: Performed By: #### C MP, LIPID, TSH #### [facility] [address] [place] [address] Dr. Bertram Paulino Eosinophils/100 WBC (Bld) 1.2 % Normal 0.9-7.0 [facility] Comment on above: Performed By: #### C MP, LIPID, TSH #### [facility] [address] [place] [address] Dr. Bertram Paulino Erythrocyte distribution width (RBC) [Ratio] 12.8 % Normal 11.0-15.0 [facility] Comment on above: Performed By: #### C MP, LIPID, TSH #### [facility] [address] [place] [address] Dr. Bertram Paulino Hematocrit (Bld) [Volume fraction] 38.9 % Normal 36.0-48.0 [facility] Comment on above: Performed By: #### C MP, LIPID, TSH #### [facility] [address] [place] [address] Dr. Bertram Paulino Hemoglobin (Bld) [Mass/Vol] 13.3 g/dL Normal 12.0-16.0 [facility] Comment on above: Performed By: #### C MP, LIPID, TSH #### [facility] [address] [place] [address] Dr. Bertram Paulino IG # 0.04 10e3/ul Critically high 0.00-0.03 [facility] Comment on above: Performed By: #### C MP, LIPID, TSH #### [facility] [address] [place] [address] Dr. Bertram Paulino IG % 0.5 % Normal 0.0-0.5 [facility] Comment on above: Performed By: #### C MP, LIPID, TSH #### [facility] [address] [place] [address] Dr. Bertram Paulino LYMPH # 1.9 103/ul Normal 1.2-3.8 [facility] Comment on above: Performed By: #### C MP, LIPID, TSH #### [facility] [address] [place] [address] Dr. Bertram Paulino Lymphocytes/100 WBC (Bld) 24.7 % Normal 20.5-60.0 [facility] Comment on above: Performed By: #### C MP, LIPID, TSH #### [facility] [address] [place] [address] Dr. Bertram Paulino MANUAL DIFF REQ NO Normal [facility] Comment on above: Performed By: #### C MP, LIPID, TSH #### [facility] [address] [place] [address] Dr. Bertram Paulino MCH (RBC) [Entitic mass] 30.0 pg Normal 26.7-34.0 [facility] Comment on above: Performed By: #### C MP, LIPID, TSH #### [facility] [address] [place] [address] Dr. Bertram Paulino MCHC (RBC) [Mass/Vol] 34.2 g/dL Normal 29.9-35.2 [facility] Comment on above: Performed By: #### C MP, LIPID, TSH #### [facility] [address] [place] [address] Dr. Bertram Paulino MCV (RBC) [Entitic vol] 87.6 fL Normal 81.0-99.0 [facility] Comment on above: Performed By: #### C MP, LIPID, TSH #### [facility] [address] [place] [address] Dr. Bertram Paulino MONO # 0.4 103/ul Normal 0.3-0.8 [facility] Comment on above: Performed By: #### C MP, LIPID, TSH #### [facility] [address] [place] [address] Dr. Bertram Paulino Monocytes/100 WBC (Bld) 5.3 % Normal 1.7-12.0 [facility] Comment on above: Performed By: #### C MP, LIPID, TSH #### [facility] [address] [place] [address] Dr. Bertram Paulino NEUT # 5.1 103/ul Normal 1.4-6.5 [facility] Comment on above: Performed By: #### C MP, LIPID, TSH #### [facility] [address] [place] [address] Dr. Bertram Paulino Neutrophils/100 WBC (Bld) 67.8 % Normal 43.0-75.0 [facility] Comment on above: Performed By: #### C MP, LIPID, TSH #### [facility] [address] [place] [address] Dr. Bertram Paulino Platelet mean volume (Bld) [Entitic vol] 10.7 fL Normal 9.5-13.5 [facility] Comment on above: Performed By: #### C MP, LIPID, TSH #### [facility] [address] [place] [address] Dr. Bertram Paulino PLT 270 103/ul Normal 150-450 [facility] Comment on above: Performed By: #### C MP, LIPID, TSH #### [facility] [address] [place] [address] Dr. Bertram Paulino RBC 4.44 106/ul Normal 4.20-5.40 [facility] Comment on above: Performed By: #### C MP, LIPID, TSH #### [facility] [address] [place] [address] Dr. Bertram Paulino WBC 7.5 103/ul Normal 4.0-11.0 [facility] Comment on above: Performed By: #### C MP, LIPID, TSH #### [facility] [address] [place] [address] Dr. Bertram Paulino ER URINE PROFILEon 3 Bilirubin Ql (U) Negative Normal NEGATIVE [facility] Comment on above: Performed By: #### C MP, LIPID, TSH #### [facility] [address] [place] [address] Dr. Bertram Paulino Clarity (U) CLEAR Normal CLEAR [facility] Comment on above: Performed By: #### C MP, LIPID, TSH #### [facility] [address] [place] [address] Dr. Bertram Paulino Color (U) LT. YELLOW Normal YELLOW [facility] Comment on above: Performed By: #### C MP, LIPID, TSH #### [facility] [address] [address] [address] Bertram PANIAGUAAHKaran A micrscopic examination will be performed if indicated. Normal [facility] Comment on above: Performed By: #### C MP, LIPID, TSH #### [facility] [address] [address] [address] Bertram Paulino Glucose Ql (U) Negative Normal NEGATIVE [facility] Comment on above: Performed By: #### C MP, LIPID, TSH #### [facility] [address] [address] [address] Bertram Paulino Hemoglobin Ql (U) Negative Normal NEGATIVE [facility] Comment on above: Performed By: #### C MP, LIPID, TSH #### [facility] [address] [place] [address] Dr. Bertram Paulino Ketones Ql (U) Negative Normal NEGATIVE [facility] Comment on above: Performed By: #### C MP, LIPID, TSH #### [facility] [address] [place] [address] Dr. Bertram Paulino LEUKOCYTES Negative Normal NEGATIVE [facility] Comment on above: Performed By: #### C MP, LIPID, TSH #### [facility] [address] [place] [address] Dr. Bertram Paulino Nitrite Ql (U) Negative Normal NEGATIVE [facility] Comment on above: Performed By: #### C MP, LIPID, TSH #### [facility] [address] [place] [address] Dr. Bertram Paulino pH (U) 7.0 [pH] Normal 5-9 [facility] Comment on above: Performed By: #### C MP, LIPID, TSH #### [facility] [address] [place] [address] Dr. Bertram Paulino SPEC GRAVITY <=1.005 Abnormal 1.005-<=1.025 [facility] Comment on above: Performed By: #### C MP, LIPID, TSH #### [facility] [address] [place] [address] Dr. Bertram Paulino UA PROTEIN Negative Normal NEGATIVE/ TRACE [facility] Comment on above: Performed By: #### C MP, LIPID, TSH #### [facility] [address] [place] [address] Dr. Bertram Paulino UR MICRO IND NOT INDICATED Normal [facility] Comment on above: Performed By: #### C MP, LIPID, TSH #### [facility] [address] [place] [address] Dr. Bertram Paulino Urobilinogen Qn (U) 0.2 {Yazmin'U}/dL Normal 0.2 - 1. 0 [facility] Comment on above: Performed By: #### C MP, LIPID, TSH #### [facility] [address] [place] [address] Dr. Bertram Paulino MONOon 01-23-2023 Monocytes (Bld) [#/Vol] Negative Normal NEGATIVE [facility] Comment on above: Performed By: #### C MP, LIPID, TSH #### [facility] [address] [place] [address] Dr. Bertram Paulino PROF 14(COMP METB)on 023 Albumin [Mass/Vol] 4.1 g/dL Normal 3.4-5.0 [facility] Comment on above: Performed By: #### H STROPN, TSH, CMP #### [facility] [address] [place] [address] Dr. Bertram Paulino Albumin/Globulin [Mass ratio] 1.2 {ratio} Normal [facility] Comment on above: Performed By: #### H STROPN, TSH, CMP #### [facility] [address] [place] [address] Dr. Bertram Paulino ALP [Catalytic activity/Vol] 71 U/L Normal 46-116 [facility] Comment on above: Performed By: #### H STROPN, TSH, CMP #### [facility] [address] [place] [address] Dr. Bertram Paulino ALT [Catalytic activity/Vol] 53 U/L Normal 14-59 [facility] Comment on above: Performed By: #### H STROPN, TSH, CMP #### [facility] [address] [address] [address] Bertram Paulino Anion gap [Moles/Vol] 8.1 mmol/L Normal [facility] Comment on above: Performed By: #### H STROPN, TSH, CMP #### [facility] [address] [address] [address] Bertram Paulino AST [Catalytic activity/Vol] 35 U/L Normal 15-37 [facility] Comment on above: Performed By: #### H STROPN, TSH, CMP #### [facility] [address] [address] [address] Bertram Paulino Bilirubin [Mass/Vol] 0.3 mg/dL Normal 0.2-1.0 [facility] Comment on above: Performed By: #### H STROPN, TSH, CMP #### [facility] [address] [address] [address] Bertram Paulino Calcium [Mass/Vol] 9.3 mg/dL Normal 8.5-10.1 [facility] [facility] Comment on above: Performed By: #### H STROPN, TSH, CMP #### [facility] [address] [place] [address] Dr. Bertram Paulino Chloride [Moles/Vol] 103 mmol/L Normal 98-107 [facility] Comment on above: Performed By: #### H STROPN, TSH, CMP #### [facility] [address] [address] [address] Bertram Paulino CO2 [Moles/Vol] 29.5 mmol/L Normal 21.0-32.0 [facility] Comment on above: Performed By: #### H STROPN, TSH, CMP #### [facility] [address] [place] [address] Dr. Bertram Paulino Creatinine [Mass/Vol] 0.62 mg/dL Normal 0.55-1.02 [facility] Comment on above: Performed By: #### H STROPN, TSH, CMP #### [facility] [address] [place] [address] Dr. Bertram Paulino EGFR-AF LATVIAN >60 Normal >=60 [facility] Comment on above: Performed By: #### H STROPN, TSH, CMP #### [facility] [address] [address] [address] Bertram Pualino EGFR-NON AF LATVIAN >60 Normal >=60 [facility] Comment on above: Performed By: #### H STROPN, TSH, CMP #### [facility] [address] [address] [address] Bertram Paulino Globulin (S) [Mass/Vol] 3.3 g/dL Normal [facility] Comment on above: Performed By: #### H STROPN, TSH, CMP #### [facility] [address] [place] [address] Dr. Bertram Paulino Glucose [Mass/Vol] 121 mg/dL Critically high 74-106 [facility] Comment on above: Performed By: #### H STROPN, TSH, CMP #### [facility] [address] [address] [address] Bertram Paulino Potassium [Moles/Vol] 3.6 mmol/L Normal 3.5-5.1 [facility] Comment on above: Performed By: #### H STROPN, TSH, CMP #### [facility] [address] [place] [address] Dr. Bertram Paulino Protein [Mass/Vol] 7.4 g/dL Normal 6.4-8.2 [facility] Comment on above: Performed By: #### H STROPN, TSH, CMP #### [facility] [address] [place] [address] Dr. Bertram Paulino Sodium [Moles/Vol] 137 mmol/L Normal 136-145 [facility] Comment on above: Performed By: #### H STROPN, TSH, CMP #### [facility] [address] [place] [address] Dr. Bertram Paulino Urea nitrogen [Mass/Vol] 9.0 mg/dL Normal 7.0-18.0 [facility] Comment on above: Performed By: #### H STROPN, TSH, CMP #### [facility] [address] [address] [address] Bertram Paulino Urea nitrogen/Creatinine [Mass ratio] 14.5 mg/mg Normal [facility] Comment on above: Performed By: #### H STROPN, TSH, CMP #### [facility] [address] [address] [address] Bertram Paulino PROTIMEon 01-23-2023 INR Coag (PPP) [Relative time] {INR} Normal [facility] Comment on above: Performed By: #### C MP, LIPID, TSH #### [facility] [address] [address] [address] Bertram Paulino INR GUIDELINES SEE BELOW Normal [facility] Comment on above: Result Comment: TYRA RED INR: 2.0 - 3.0 CONDITIONS NOT LISTED BELOW 2.5 - 3.5 FOR PROSTHETIC HEART VALVE REPLACEMENT 2.5 - 3.5 RECURRENT THROMBOSIS Performed By: #### C MP, LIPID, TSH #### [facility] [address] [address] [address] Bertram Paulino PT Coag (PPP) [Time] 9.6 s Normal 9.0-11.6 [facility] Comment on above: Performed By: #### C MP, LIPID, TSH #### [facility] [address] [place] [address] Dr. Bertram Paulino PTTon 01-23-2023 aPTT Coag (Bld) [Time] s Normal 22.3-36.2 [facility] Comment on above: Performed By: #### C MP, LIPID, TSH #### [facility] [address] [place] [address] Dr. Bertram Paulino TROPONIN, HIGH SENSITIVITYon 01-23-2023 HSTROP 4.8 pg/mL Normal 4.0-51.3 [facility] Comment on above: Result Comment: CUT- OFF POINTS HAVE BEEN ESTABLISHED BASED ON THE FOURTH UNIVERSAL DEFINITIONS OF MYOCARDIAL INFARCTION. THE UPPER REFERENCE LIMIT (URL) OF TROPONIN, DEFINED THE 99TH PERCENTILE OF cTnI DISTRIBUTION IN A REFERENCE POPULATION, HAS BEEN CONFIRMED THE DECISION THRESHOLD FOR AR DIAGNOSIS. Performed By: #### C MP, LIPID, TSH #### [facility] [address] [place] [address] Dr. Bertram Paulino TSHon 01-23-2023 TSH 2.684 uIU/mL Normal 0.358-3.740 [facility] Comment on above: Performed By: #### H STROPN, TSH, CMP #### [facility] [address] [place] [address] Dr. Bertram Paulino CBC AUTO DIFFon 01-12-2023 BASO # 0.0 103/ul Normal 0.0-0.1 [facility] Comment on above: Performed By: #### C MP, LIPID, TSH #### [facility] [address] [place] [address] Dr. Bertram Paulino Basophils/100 WBC (Bld) 0.5 % Normal 0.2-2.0 [facility] Comment on above: Performed By: #### C MP, LIPID, TSH #### [facility] [address] [place] [address] Dr. Bertram Paulnio EO # 0.2 103/ul Normal 0.0-0.7 [facility] Comment on above: Performed By: #### C MP, LIPID, TSH #### [facility] [address] [place] [address] Dr. Bertram Paulino Eosinophils/100 WBC (Bld) 3.6 % Normal 0.9-7.0 [facility] Comment on above: Performed By: #### C MP, LIPID, TSH #### [facility] [address] [place] [address] Dr. Bertram Paulino Erythrocyte distribution width (RBC) [Ratio] 12.7 % Normal 11.0-15.0 [facility] Comment on above: Performed By: #### C MP, LIPID, TSH #### [facility] [address] [place] [address] Dr. Bertram Paulino Hematocrit (Bld) [Volume fraction] 37.6 % Normal 36.0-48.0 [facility] Comment on above: Performed By: #### C MP, LIPID, TSH #### [facility] [address] [place] [address] Dr. Bertram Paulino Hemoglobin (Bld) [Mass/Vol] 12.7 g/dL Normal 12.0-16.0 [facility] Comment on above: Performed By: #### C MP, LIPID, TSH #### [facility] [address] [place] [address] Dr. Bertram Paulino IG # 0.02 10e3/ul Normal 0.00-0.03 [facility] Comment on above: Performed By: #### C MP, LIPID, TSH #### [facility] [address] [place] [address] Dr. Bertram Paulino IG % 0.3 % Normal 0.0-0.5 [facility] Comment on above: Performed By: #### C MP, LIPID, TSH #### [facility] [address] [place] [address] Dr. Bertram Paulino LYMPH # 2.2 103/ul Normal 1.2-3.8 [facility] Comment on above: Performed By: #### C MP, LIPID, TSH #### [facility] [address] [place] [address] Dr. Bertram Paulino Lymphocytes/100 WBC (Bld) 35.7 % Normal 20.5-60.0 [facility] Comment on above: Performed By: #### C MP, LIPID, TSH #### [facility] [address] [place] [address] Dr. Bertram Paulino MANUAL DIFF REQ NO Normal [facility] Comment on above: Performed By: #### C MP, LIPID, TSH #### [facility] [address] [place] [address] Dr. Bertram Paulino MCH (RBC) [Entitic mass] 29.7 pg Normal 26.7-34.0 [facility] Comment on above: Performed By: #### C MP, LIPID, TSH #### [facility] [address] [place] [address] Dr. Bertram Paulino MCHC (RBC) [Mass/Vol] 33.8 g/dL Normal 29.9-35.2 [facility] Comment on above: Performed By: #### C MP, LIPID, TSH #### [facility] [address] [place] [address] Dr. Bertram Paulino MCV (RBC) [Entitic vol] 88.1 fL Normal 81.0-99.0 [facility] Comment on above: Performed By: #### C MP, LIPID, TSH #### [facility] [address] [place] [address] Dr. Bertram Paulino MONO # 0.3 103/ul Normal 0.3-0.8 [facility] Comment on above: Performed By: #### C MP, LIPID, TSH #### [facility] [address] [place] [address] Dr. Bertram Paulino Monocytes/100 WBC (Bld) 5.1 % Normal 1.7-12.0 [facility] Comment on above: Performed By: #### C MP, LIPID, TSH #### [facility] [address] [place] [address] Dr. Bertram Paulino NEUT # 3.4 103/ul Normal 1.4-6.5 [facility] Comment on above: Performed By: #### C MP, LIPID, TSH #### [facility] [address] [place] [address] Dr. Bertram Paulino Neutrophils/100 WBC (Bld) 54.8 % Normal 43.0-75.0 [facility] Comment on above: Performed By: #### C MP, LIPID, TSH #### [facility] [address] [place] [address] Dr. Bertram Paulino Platelet mean volume (Bld) [Entitic vol] 10.3 fL Normal 9.5-13.5 [facility] Comment on above: Performed By: #### C MP, LIPID, TSH #### [facility] [address] [place] [address] Dr. Bertram Paulino PLT 269 103/ul Normal 150-450 [facility] Comment on above: Performed By: #### C MP, LIPID, TSH #### [facility] [address] [place] [address] Dr. Bertram Paulino RBC 4.27 106/ul Normal 4.20-5.40 [facility] Comment on above: Performed By: #### C MP, LIPID, TSH #### [facility] [address] [address] [address] Bertram Paulino WBC 6.1 103/ul Normal 4.0-11.0 [facility] Comment on above: Performed By: #### C MP, LIPID, TSH #### [facility] [address] [place] [address] Dr. Bertram Paulino FREE T4on 01-12-2023 Free T4 [Mass/Vol] 1.00 ng/dL Normal 0.76-1.46 [facility] Comment on above: Performed By: #### C MP, LIPID, TSH #### [facility] [address] [place] [address] Dr. Bertram Paulino GLYCOHEMOGLOBIN A1Con 2022 ADA RECOMMENDATION SEE BELOW Normal [facility] Comment on above: Result Comment: ADA RECOMMENDED LIMIT 4.0 - 6.0 ADA THERAPEUTIC TARGET < 7.0 ACTION SUGGESTED > 7.0 Performed By: #### C MP, LIPID, TSH #### [facility] [address] [place] [address] Dr. Bertram Paulino Glucose [Mass/Vol] 126 mg/dL Normal [facility] Comment on above: Performed By: #### C MP, LIPID, TSH #### [facility] [address] [place] [address] Dr. Bertram Paulino HbA1c (Bld) [Mass fraction] 6.0 % Normal 4.5-6.2 [facility] Comment on above: Performed By: #### C MP, LIPID, TSH #### [facility] [address] [place] [address] Dr. Bertram Paulino LIPID PROFILEon 01-12-2023 CHOL-HDL RATIO NORM SEE BELOW Normal [facility] Comment on above: Result Comment: 3.3 - 4.4 LOW RISK 4.4 - 7.1 AVERAGE RISK 7.1 - 11.0 MODERATE RISK >11.0 HIGH RISK Performed By: #### C MP, LIPID, TSH #### [facility] [address] [place] [address] Dr. Bertram Paulino Cholesterol [Mass/Vol] 222 mg/dL Critically high <=200 [facility] Comment on above: Performed By: #### C MP, LIPID, TSH #### [facility] [address] [address] [address] Bertram Paulino Cholesterol in HDL [Mass/Vol] 44 mg/dL Normal 40-60 [facility] Comment on above: Performed By: #### C MP, LIPID, TSH #### [facility] [address] [address] [address] Bertram Paulino Cholesterol in LDL [Mass/Vol] 132.4 mg/dL Normal [facility] Comment on above: Performed By: #### C MP, LIPID, TSH #### [facility] [address] [address] [address] Bertram Paulino Cholesterol.total/Ch olesterol in HDL [Mass ratio] 5.0 {ratio} Normal [facility] Comment on above: Performed By: #### C MP, LIPID, TSH #### [facility] [address] [address] [address] Bertram Paulino HDL NORMAL > or = 60 mg/dl - LO W CARDIOVASCULAR RISK <40 mg/dl - HIGH CARDIOVASCULAR RISK Normal [facility] Comment on above: Performed By: #### C MP, LIPID, TSH #### [facility] [address] [address] [address] Bertram Paulino LDL CALC NORMAL SEE BELOW Normal [facility] Comment on above: Result Comment: <100 mg/dl OPTIMAL 100 - 129 mg/dl NEAR OR ABOVE OPTIMAL 130 - 159 mg/dl BORDERLINE HIGH 160 - 189 mg/dl HIGH >190 mg/dl VERY HIGH Performed By: #### C MP, LIPID, TSH #### [facility] [address] [address] [address] Bertram Paulino Triglyceride [Mass/Vol] 228 mg/dL Critically high <=150 [facility] Comment on above: Performed By: #### C MP, LIPID, TSH #### [facility] [address] [address] [address] Bertram Paulino VLDL CALC 45.6 mg/dL Normal [facility] Comment on above: Performed By: #### C MP, LIPID, TSH #### [facility] [address] [address] [address] Bertram Paulino PROF 14(COMP METB)on 023 Albumin [Mass/Vol] 3.8 g/dL Normal 3.4-5.0 [facility] Comment on above: Performed By: #### C MP, LIPID, TSH #### [facility] [address] [address] [address] Bertram Paulino Albumin/Globulin [Mass ratio] 1.2 {ratio} Normal [facility] Comment on above: Performed By: #### C MP, LIPID, TSH #### [facility] [address] [place] [address] Dr. Bertram Paulino ALP [Catalytic activity/Vol] 66 U/L Normal 46-116 [facility] Comment on above: Performed By: #### C MP, LIPID, TSH #### [facility] [address] [place] [address] Dr. Bertram Paulino ALT [Catalytic activity/Vol] 45 U/L Normal 14-59 [facility] Comment on above: Performed By: #### C MP, LIPID, TSH #### [facility] [address] [place] [address] Dr. Bertram Paulino Anion gap [Moles/Vol] 12.8 mmol/L Normal [facility] Comment on above: Performed By: #### C MP, LIPID, TSH #### [facility] [address] [place] [address] Dr. Bertram Paulino AST [Catalytic activity/Vol] 29 U/L Normal 15-37 [facility] Comment on above: Performed By: #### C MP, LIPID, TSH #### [facility] [address] [place] [address] Dr. Bertram Paulino Bilirubin [Mass/Vol] 0.4 mg/dL Normal 0.2-1.0 [facility] Comment on above: Performed By: #### C MP, LIPID, TSH #### [facility] [address] [place] [address] Dr. Bertram Paulino Calcium [Mass/Vol] 9.1 mg/dL Normal 8.5-10.1 [facility] Comment on above: Performed By: #### C MP, LIPID, TSH #### [facility] [address] [address] [address] Bertram Paulino Chloride [Moles/Vol] 104 mmol/L Normal 98-107 [facility] Comment on above: Performed By: #### C MP, LIPID, TSH #### [facility] [address] [address] [address] Bertram Paulino CO2 [Moles/Vol] 27.2 mmol/L Normal 21.0-32.0 [facility] Comment on above: Performed By: #### C MP, LIPID, TSH #### [facility] [address] [place] [address] Dr. Bertram Paulino Creatinine [Mass/Vol] 0.65 mg/dL Normal 0.55-1.02 [facility] Comment on above: Performed By: #### C MP, LIPID, TSH #### [facility] [address] [place] [address] Dr. Bertram Paulino EGFR-AF LATVIAN >60 Normal >=60 [facility] Comment on above: Performed By: #### C MP, LIPID, TSH #### [facility] [address] [place] [address] Dr. Bertram Paulino EGFR-NON AF LATVIAN >60 Normal >=60 [facility] Comment on above: Performed By: #### C MP, LIPID, TSH #### [facility] [address] [place] [address] Dr. Bertram Paulino Globulin (S) [Mass/Vol] 3.1 g/dL Normal [facility] Comment on above: Performed By: #### C MP, LIPID, TSH #### [facility] [address] [place] [address] Dr. Bertram Paulino Glucose [Mass/Vol] 123 mg/dL Critically high 74-106 [facility] Comment on above: Performed By: #### C MP, LIPID, TSH #### [facility] [address] [place] [address] Dr. Bertram Paulino Potassium [Moles/Vol] 4.0 mmol/L Normal 3.5-5.1 [facility] Comment on above: Performed By: #### C MP, LIPID, TSH #### [facility] [address] [place] [address] Dr. Bertram Paulino Protein [Mass/Vol] 6.9 g/dL Normal 6.4-8.2 [facility] Comment on above: Performed By: #### C MP, LIPID, TSH #### [facility] [address] [place] [address] Dr. Bertram Paulino Sodium [Moles/Vol] 140 mmol/L Normal 136-145 [facility] Comment on above: Performed By: #### C MP, LIPID, TSH #### [facility] [address] [place] [address] Dr. Bertram Paulino Urea nitrogen [Mass/Vol] 6.0 mg/dL Critically low 7.0-18.0 [facility] Comment on above: Performed By: #### C MP, LIPID, TSH #### [facility] [address] [place] [address] Dr. Bertram Paulino Urea nitrogen/Creatinine [Mass ratio] 9.2 mg/mg Normal [facility] Comment on above: Performed By: #### C MP, LIPID, TSH #### [facility] [address] [place] [address] Dr. Bertram Paulino SED RATE [facility] 2022 SED RATE 23 mm/hr Normal <=30 [facility] Comment on above: Performed By: #### C MP, LIPID, TSH #### [facility] [address] [place] [address] Dr. Bertram Paulino TSHon 01-12-2023 TSH 2.215 uIU/mL Normal 0.358-3.740 [facility] Comment on above: Performed By: #### C MP, LIPID, TSH #### [facility] [address] [place] [address] CHEST W CONon [...] by: PASTOR ESPANA Date: 2022-08-10 06:47 Normal [facility] XR CHEST 2 Von 07-11-2022 XR CHEST [...] by: VANESSA PRESLEY Date: 2022-07-11 07:11 Normal [facility] Progress Noteson 07-05-2022 [employer] Authentication Interface Message Text Documentation: Mode: Telephone Patient Patient Work Phone: Patient Cell Preferred phone: [phone] Consent: I confirmed patient understanding of the risks and benefits of telehealth visits and obtained consent to proceed with the telehealth visit. Location of Patient: Home of patient Post Covid Follow Up Telemedicine Visit Note: CC: f/u of [id number] condition Recall: Lu Cancino is a 51 [...] Also has neuropathy Patient still resides near [place], [place] PMH/PSH: Reviewed 07/05/22 Allergies: Per list, [...] Follow up in 3 months Lucía Calderon APRN-[employer] Post Covid Nurse Practitioner Normal [facility] CBC AUTO DIFFon 07-01-2022 BASO # 0.0 103/ul Normal 0.0-0.1 [facility] Comment on above: Performed By: #### C MP, LIPID, TSH #### [facility] [address] [address] [address] Bertram Paulino Basophils/100 WBC (Bld) 0.2 % Normal 0.2-2.0 [facility] Comment on above: Performed By: #### C MP, LIPID, TSH #### [facility] [address] [address] [address] Bertram Paulino EO # 0.1 103/ul Normal 0.0-0.7 [facility] Comment on above: Performed By: #### C MP, LIPID, TSH #### [facility] [address] [place] [address] Dr. Bertram Paulino Eosinophils/100 WBC (Bld) 0.7 % Critically low 0.9-7.0 [facility] Comment on above: Performed By: #### C MP, LIPID, TSH #### [facility] [address] [place] [address] Dr. Bertram Paulino Erythrocyte distribution width (RBC) [Ratio] 12.9 % Normal 11.0-15.0 [facility] Comment on above: Performed By: #### C MP, LIPID, TSH #### [facility] [address] [place] [address] Dr. Bertram Paulino Hematocrit (Bld) [Volume fraction] 41.5 % Normal 36.0-48.0 [facility] Comment on above: Performed By: #### C MP, LIPID, TSH #### [facility] [address] [place] [address] Dr. Bertram Paulino Hemoglobin (Bld) [Mass/Vol] 14.1 g/dL Normal 12.0-16.0 [facility] Comment on above: Performed By: #### C MP, LIPID, TSH #### [facility] [address] [place] [address] Dr. Bertram Paulino IG # 0.03 10e3/ul Normal 0.00-0.03 [facility] Comment on above: Performed By: #### C MP, LIPID, TSH #### [facility] [address] [place] [address] Dr. Bertram Paulino IG % 0.3 % Normal 0.0-0.5 [facility] Comment on above: Performed By: #### C MP, LIPID, TSH #### [facility] [address] [place] [address] Dr. Bertram Paulino LYMPH # 2.4 103/ul Normal 1.2-3.8 [facility] Comment on above: Performed By: #### C MP, LIPID, TSH #### [facility] [address] [place] [address] Dr. Bertram Paulino Lymphocytes/100 WBC (Bld) 27.6 % Normal 20.5-60.0 [facility] Comment on above: Performed By: #### C MP, LIPID, TSH #### [facility] [address] [place] [address] Dr. Bertram Paulino MANUAL DIFF REQ NO Normal [facility] Comment on above: Performed By: #### C MP, LIPID, TSH #### [facility] [address] [place] [address] Dr. Bertram Paulino MCH (RBC) [Entitic mass] 29.7 pg Normal 26.7-34.0 [facility] Comment on above: Performed By: #### C MP, LIPID, TSH #### [facility] [address] [place] [address] Dr. Bertram Paulino MCHC (RBC) [Mass/Vol] 34.0 g/dL Normal 29.9-35.2 [facility] Comment on above: Performed By: #### C MP, LIPID, TSH #### [facility] [address] [place] [address] Dr. Bertram Paulino MCV (RBC) [Entitic vol] 87.6 fL Normal 81.0-99.0 [facility] Comment on above: Performed By: #### C MP, LIPID, TSH #### [facility] [address] [place] [address] Dr. Bertram Paulino MONO # 0.6 103/ul Normal 0.3-0.8 [facility] Comment on above: Performed By: #### C MP, LIPID, TSH #### [facility] [address] [place] [address] Dr. Bertram Paulino Monocytes/100 WBC (Bld) 6.8 % Normal 1.7-12.0 [facility] Comment on above: Performed By: #### C MP, LIPID, TSH #### [facility] [address] [place] [address] Dr. Bertram Paulino NEUT # 5.6 103/ul Normal 1.4-6.5 [facility] Comment on above: Performed By: #### C MP, LIPID, TSH #### [facility] [address] [place] [address] Dr. Bertram Paulino Neutrophils/100 WBC (Bld) 64.4 % Normal 43.0-75.0 [facility] Comment on above: Performed By: #### C MP, LIPID, TSH #### [facility] [address] [place] [address] Dr. Bertram Paulino Platelet mean volume (Bld) [Entitic vol] 10.0 fL Normal 9.5-13.5 [facility] Comment on above: Performed By: #### C MP, LIPID, TSH #### [facility] [address] [place] [address] Dr. Bertram Paulino PLT 326 103/ul Normal 150-450 [facility] Comment on above: Performed By: #### C MP, LIPID, TSH #### [facility] [address] [place] [address] Dr. Bertram Paulino RBC 4.74 106/ul Normal 4.20-5.40 [facility] Comment on above: Performed By: #### C MP, LIPID, TSH #### [facility] [address] [place] [address] Dr. Bertram Paulino WBC 8.7 103/ul Normal 4.0-11.0 [facility] Comment on above: Performed By: #### C MP, LIPID, TSH #### [facility] [address] [place] [address] Dr. Bertram Paulino ER URINE PROFILEon 2 Bilirubin Ql (U) Negative Normal NEGATIVE [facility] Comment on above: Performed By: #### C MP, LIPID, TSH #### [facility] [address] [place] [address] Dr. Bertram Paulino Clarity (U) CLEAR Normal CLEAR [facility] Comment on above: Performed By: #### C MP, LIPID, TSH #### [facility] [address] [place] [address] Dr. Bertram Paulino Color (U) LT. YELLOW Normal YELLOW [facility] Comment on above: Performed By: #### C MP, LIPID, TSH #### [facility] [address] [place] [address] Dr. Bertram ETIENNE A micrscopic examination will be performed if indicated. Normal [facility] Comment on above: Performed By: #### C MP, LIPID, TSH #### [facility] [address] [address] [address] Bertram Paulino Glucose Ql (U) Negative Normal NEGATIVE [facility] Comment on above: Performed By: #### C MP, LIPID, TSH #### [facility] [address] [address] [address] Bertram Paulino Hemoglobin Ql (U) Negative Normal NEGATIVE [facility] Comment on above: Performed By: #### C MP, LIPID, TSH #### [facility] [address] [address] [address] Bertram Paulino Ketones Ql (U) TRACE Abnormal NEGATIVE [facility] Comment on above: Performed By: #### C MP, LIPID, TSH #### [facility] [address] [place] [address] Dr. Bertram Paulino LEUKOCYTES Negative Normal NEGATIVE [facility] Comment on above: Performed By: #### C MP, LIPID, TSH #### [facility] [address] [address] [address] Bertram Paulino Nitrite Ql (U) Negative Normal NEGATIVE [facility] Comment on above: Performed By: #### C MP, LIPID, TSH #### [facility] [address] [place] [address] Dr. Bertram Paulino pH (U) 6.0 [pH] Normal 5-9 [facility] Comment on above: Performed By: #### C MP, LIPID, TSH #### [facility] [address] [place] [address] Dr. Bertram Paulino SPEC GRAVITY <=1.005 Abnormal 1.005-<=1.025 [facility] Comment on above: Performed By: #### C MP, LIPID, TSH #### [facility] [address] [address] [address] Bertram Paulino UA PROTEIN Negative Normal NEGATIVE/ TRACE [facility] Comment on above: Performed By: #### C MP, LIPID, TSH #### [facility] [address] [address] [address] Bertram Paulino UR MICRO IND NOT INDICATED Normal [facility] Comment on above: Performed By: #### C MP, LIPID, TSH #### [facility] [address] [address] [address] Bertram Paulino Urobilinogen Qn (U) 0.2 {Yazmin'U}/dL Normal 0.2 - 1. 0 [facility] Comment on above: Performed By: #### C MP, LIPID, TSH #### [facility] [address] [address] [address] Bertram Paulino LACTATE/LACTIC ACIDon 2021 Lactate [Moles/Vol] 1.2 mmol/L Normal 0.4-1.9 [facility] Comment on above: Performed By: #### C MP, LIPID, TSH #### [facility] [address] [address] [address] Bertram Paulino MONOon 07-01-2022 Monocytes (Bld) [#/Vol] Negative Normal NEGATIVE [facility] Comment on above: Performed By: #### M VENUS ####[facility] [id number] [address]Dr. Bertram Paulino PROF 14(COMP METB)on 022 Albumin [Mass/Vol] 4.1 g/dL Normal 3.4-5.0 [facility] Comment on above: Performed By: #### C MP, LIPID, TSH #### [facility] [address] [address] [address] Bertram Paulino Albumin/Globulin [Mass ratio] 1.1 {ratio} Normal [facility] Comment on above: Performed By: #### C MP, LIPID, TSH #### [facility] [address] [address] [address] Bertram Paulino ALP [Catalytic activity/Vol] 57 U/L Normal 46-116 [facility] Comment on above: Performed By: #### C MP, LIPID, TSH #### [facility] [address] [address] [address] Bertram Paulino ALT [Catalytic activity/Vol] 38 U/L Normal 14-59 [facility] Comment on above: Performed By: #### C MP, LIPID, TSH #### [facility] [address] [place] [address] Dr. Bertram Paulino Anion gap [Moles/Vol] 13.9 mmol/L Normal [facility] Comment on above: Performed By: #### C MP, LIPID, TSH #### [facility] [address] [place] [address] Dr. Bertram Paulino AST [Catalytic activity/Vol] 22 U/L Normal 15-37 [facility] Comment on above: Performed By: #### C MP, LIPID, TSH #### [facility] [address] [place] [address] Dr. Bertram Paulino Bilirubin [Mass/Vol] 0.7 mg/dL Normal 0.2-1.0 [facility] Comment on above: Performed By: #### C MP, LIPID, TSH #### [facility] [address] [place] [address] Dr. Bertram Paulino Calcium [Mass/Vol] 9.6 mg/dL Normal 8.5-10.1 [facility] Comment on above: Performed By: #### C MP, LIPID, TSH #### [facility] [address] [place] [address] Dr. Bertram Paulino Chloride [Moles/Vol] 98 mmol/L Normal 98-107 [facility] Comment on above: Performed By: #### C MP, LIPID, TSH #### [facility] [address] [place] [address] Dr. Bertram Paulino CO2 [Moles/Vol] 27.4 mmol/L Normal 21.0-32.0 [facility] Comment on above: Performed By: #### C MP, LIPID, TSH #### [facility] [address] [place] [address] Dr. Bertram Paulino Creatinine [Mass/Vol] 0.85 mg/dL Normal 0.55-1.02 [facility] Comment on above: Performed By: #### C MP, LIPID, TSH #### [facility] [address] [address] [address] Bertram Paulino EGFR-AF LATVIAN >60 Normal >=60 [facility] Comment on above: Performed By: #### C MP, LIPID, TSH #### [facility] [address] [address] [address] Bertram Paulino EGFR-NON AF LATVIAN >60 Normal >=60 [facility] Comment on above: Performed By: #### C MP, LIPID, TSH #### [facility] [address] [address] [address] Bertram Paulino Globulin (S) [Mass/Vol] 3.6 g/dL Normal [facility] Comment on above: Performed By: #### C MP, LIPID, TSH #### [facility] [address] [place] [address] Dr. Bertram Paulino Glucose [Mass/Vol] 99 mg/dL Normal 74-106 [facility] Comment on above: Performed By: #### C MP, LIPID, TSH #### [facility] [address] [address] [address] Bertram Paulino Potassium [Moles/Vol] 3.3 mmol/L Critically low 3.5-5.1 [facility] Comment on above: Performed By: #### C MP, LIPID, TSH #### [facility] [address] [place] [address] Dr. Bertram Paulino Protein [Mass/Vol] 7.7 g/dL Normal 6.4-8.2 [facility] Comment on above: Performed By: #### C MP, LIPID, TSH #### [facility] [address] [address] [address] Bertram Paulino Sodium [Moles/Vol] 136 mmol/L Normal 136-145 [facility] Comment on above: Performed By: #### C MP, LIPID, TSH #### [facility] [address] [address] [address] Bertram Paulino Urea nitrogen [Mass/Vol] 13.0 mg/dL Normal 7.0-18.0 [facility] Comment on above: Performed By: #### C MP, LIPID, TSH #### [facility] [address] [address] [address] Bertram Paulino Urea nitrogen/Creatinine [Mass ratio] 15.3 mg/mg Normal [facility] Comment on above: Performed By: #### C MP, LIPID, TSH #### [facility] [address] [address] [address] Bertram Paulino TROPONIN, HIGH SENSITIVITYon 07-01-2022 HSTROP 6.5 pg/mL Normal 4.0-51.3 [facility] Comment on above: Result Comment: CUT- OFF POINTS HAVE BEEN ESTABLISHED BASED ON THE FOURTH UNIVERSAL DEFINITIONS OF MYOCARDIAL INFARCTION. THE UPPER REFERENCE LIMIT (URL) OF TROPONIN, DEFINED THE 99TH PERCENTILE OF cTnI DISTRIBUTION IN A REFERENCE POPULATION, HAS BEEN CONFIRMED THE DECISION THRESHOLD FOR AR DIAGNOSIS. Performed By: #### T SH, CMP, HSTROPN ####[facility] [id number] [id number] Bertram Paulino TSHon 07-01-2022 TSH 2.596 uIU/mL Normal 0.358-3.740 [facility] Comment on above: Performed By: #### T SH, CMP, HSTROPN ####[facility] [id number] [address]Dr. Bertram Paulino STOOL CULTUREon 06-10-2022 Campylobacter Culture Final report Normal [facility] Comment on above: Performed By: #### C MP, LIPID, TSH #### [facility] [address] [address] [address] Bertram Paulino E coli Shiga Toxin EIA Negative Normal Negative [facility] Comment on above: Performed By: #### C MP, LIPID, TSH #### [facility] [address] [address] [address] Bertram Paulino Result 1 Comment Normal [facility] Comment on above: Result Comment: No S almonella or Shigella recovered. Performed By: #### C MP, LIPID, TSH #### [facility] [address] [address] [address] Bertram Paulino Result Comment: No C ampylobacter species isolated. Salmonella/Shigella Screen Final report Normal [facility] Comment on above: Performed By: #### C MP, LIPID, TSH #### [facility] [address] [address] [address] Bertram Paulino OVA AND PARASITE EXAMINATION on 06-09-2022 Ova + Parasite Exam Final report Normal [facility] Comment on above: Result Comment: Thes e results were obtained using wet preparation(s) and trichrome stained smear. This test does not include testing for Cryptosporidium parvum, Cyclospora, or Microsporidia. Performed By: #### O VAPE ####[facility] [id number] [address]Dr. Bertram Paulino Result 1 Comment Normal [facility] Comment on above: Result Comment: No o va, cysts, or parasites seen. . One negative specimen does not rule out the possibility of a parasitic infection. Performed By: #### O VAPE ####[facility] [id number] [address]Dr. Bertram Paulino CLOSTRIDIUM DIFFICILE PCRon 06-07-2022 C difficile Toxin Gene KIRT Negative Normal Negative [facility] Comment on above: Performed By: #### C DIFNAA #### [facility] [address] [place] [address] Dr. Bertram Paulino OCC BLD IMMUNO SCREENon 05-14 OCCULT BLOOD Negative Normal NEGATIVE [facility] Comment on above: Performed By: #### C MP, LIPID, TSH #### [facility] [address] [address] [address] Bertram Paulino CARDIAC ERASMO 3-6on 2 CK [Catalytic activity/Vol] 109 U/L Normal 26-192 [facility] Comment on above: Performed By: #### C MP, LIPID, TSH #### [facility] [address] [place] [address] Dr. Bertram Paulino CK.MB [Mass/Vol] 1.63 ng/mL Normal <=3.60 [facility] Comment on above: Performed By: #### C MP, LIPID, TSH #### [facility] [address] [place] [address] Dr. Bertram Paulino HSTROP 6.0 pg/mL Normal 4.0-51.3 [facility] Comment on above: Result Comment: CUT- OFF POINTS HAVE BEEN ESTABLISHED BASED ON THE FOURTH UNIVERSAL DEFINITIONS OF MYOCARDIAL INFARCTION. THE UPPER REFERENCE LIMIT (URL) OF TROPONIN, DEFINED THE 99TH PERCENTILE OF cTnI DISTRIBUTION IN A REFERENCE POPULATION, HAS BEEN CONFIRMED THE DECISION THRESHOLD FOR AR DIAGNOSIS. Performed By: #### C MP, LIPID, TSH #### [facility] [address] [address] [address] Bertram Paulino CK [Catalytic activity/Vol] 101 U/L Normal 26-192 [facility] Comment on above: Performed By: #### C MREP ####[facility] [id number] [address]Dr. Bertram Paulino CK.MB [Mass/Vol] 1.60 ng/mL Normal <=3.60 [facility] Comment on above: Performed By: #### C MREP ####[facility] [id number] [address]Dr. Bertram Paulino HSTROP 5.8 pg/mL Normal 4.0-51.3 [facility] Comment on above: Result Comment: CUT- OFF POINTS HAVE BEEN ESTABLISHED BASED ON THE FOURTH UNIVERSAL DEFINITIONS OF MYOCARDIAL INFARCTION. THE UPPER REFERENCE LIMIT (URL) OF TROPONIN, DEFINED THE 99TH PERCENTILE OF cTnI DISTRIBUTION IN A REFERENCE POPULATION, HAS BEEN CONFIRMED THE DECISION THRESHOLD FOR AR DIAGNOSIS. Performed By: #### C MREP ####[facility] [id number] [address]Dr. Bertram Paulino CBC AUTO DIFFon 05-15-2022 BASO # 0.1 103/ul Normal 0.0-0.1 [facility] Comment on above: Performed By: #### C MP, LIPID, TSH #### [facility] [address] [address] [address] Bertram Paulino Basophils/100 WBC (Bld) 0.8 % Normal 0.2-2.0 [facility] Comment on above: Performed By: #### C MP, LIPID, TSH #### [facility] [address] [address] [address] Bertram Paulino EO # 0.2 103/ul Normal 0.0-0.7 [facility] Comment on above: Performed By: #### C MP, LIPID, TSH #### [facility] [address] [place] [address] Dr. Bertram Paulino Eosinophils/100 WBC (Bld) 2.9 % Normal 0.9-7.0 [facility] Comment on above: Performed By: #### C MP, LIPID, TSH #### [facility] [address] [place] [address] Dr. Bertram Paulino Erythrocyte distribution width (RBC) [Ratio] 13.5 % Normal 11.0-15.0 [facility] Comment on above: Performed By: #### C MP, LIPID, TSH #### [facility] [address] [place] [address] Dr. Bertram Paulino Hematocrit (Bld) [Volume fraction] 34.4 % Critically low 36.0-48.0 [facility] Comment on above: Performed By: #### C MP, LIPID, TSH #### [facility] [address] [place] [address] Dr. Bertram Paulino Hemoglobin (Bld) [Mass/Vol] 11.8 g/dL Critically low 12.0-16.0 [facility] Comment on above: Performed By: #### C MP, LIPID, TSH #### [facility] [address] [place] [address] Dr. Bertram Paulino IG # 0.03 10e3/ul Normal 0.00-0.03 [facility] Comment on above: Performed By: #### C MP, LIPID, TSH #### [facility] [address] [place] [address] Dr. Bertram Paulino IG % 0.5 % Normal 0.0-0.5 [facility] Comment on above: Performed By: #### C MP, LIPID, TSH #### [facility] [address] [place] [address] Dr. Bertram Paulino LYMPH # 2.7 103/ul Normal 1.2-3.8 [facility] Comment on above: Performed By: #### C MP, LIPID, TSH #### [facility] [address] [place] [address] Dr. Bertram Paulino Lymphocytes/100 WBC (Bld) 41.3 % Normal 20.5-60.0 [facility] Comment on above: Performed By: #### C MP, LIPID, TSH #### [facility] [address] [place] [address] Dr. Bertram Paulino MANUAL DIFF REQ NO Normal [facility] Comment on above: Performed By: #### C MP, LIPID, TSH #### [facility] [address] [place] [address] Dr. Bertram Paulino MCH (RBC) [Entitic mass] 29.9 pg Normal 26.7-34.0 [facility] Comment on above: Performed By: #### C MP, LIPID, TSH #### [facility] [address] [place] [address] Dr. Bertram Paulino MCHC (RBC) [Mass/Vol] 34.3 g/dL Normal 29.9-35.2 [facility] Comment on above: Performed By: #### C MP, LIPID, TSH #### [facility] [address] [place] [address] Dr. Bertram Paulino MCV (RBC) [Entitic vol] 87.3 fL Normal 81.0-99.0 [facility] Comment on above: Performed By: #### C MP, LIPID, TSH #### [facility] [address] [place] [address] Dr. Bertram Paulino MONO # 0.6 103/ul Normal 0.3-0.8 [facility] Comment on above: Performed By: #### C MP, LIPID, TSH #### [facility] [address] [place] [address] Dr. Bertram Paulino Monocytes/100 WBC (Bld) 9.6 % Normal 1.7-12.0 [facility] Comment on above: Performed By: #### C MP, LIPID, TSH #### [facility] [address] [place] [address] Dr. Bertram Paulino NEUT # 2.9 103/ul Normal 1.4-6.5 [facility] Comment on above: Performed By: #### C MP, LIPID, TSH #### [facility] [address] [address] [address] Bertram Paulino Neutrophils/100 WBC (Bld) 44.9 % Normal 43.0-75.0 [facility] Comment on above: Performed By: #### C MP, LIPID, TSH #### [facility] [address] [address] [address] Bertram Paulino Platelet mean volume (Bld) [Entitic vol] 11.0 fL Normal 9.5-13.5 [facility] Comment on above: Performed By: #### C MP, LIPID, TSH #### [facility] [address] [place] [address] Dr. Bertram Paulino PLT 281 103/ul Normal 150-450 [facility] Comment on above: Performed By: #### C MP, LIPID, TSH #### [facility] [address] [address] [address] Bertram Paulino RBC 3.94 106/ul Critically low 4.20-5.40 [facility] Comment on above: Performed By: #### C MP, LIPID, TSH #### [facility] [address] [place] [address] Dr. Bertram Paulino WBC 6.5 103/ul Normal 4.0-11.0 [facility] Comment on above: Performed By: #### C MP, LIPID, TSH #### [facility] [address] [place] [address] Dr. Bertram Paulino CTA CHEST WO W CONon 03-2 022 CTA CHEST WO W CON EXAMINATION:CTA [...] MAGDIEL BETANCOURT Date: 2022-05-14 23:01 Normal [facility] Covid-19 PCR (CVDTBH)on SARS-CoV-2 (COVID-19) RNA KIRT+probe Ql (Unsp spec) Not detected Normal NOT DETECTED [facility] Comment on above: Result Comment: When diagnostic [...] for this test is supported by the D[employer] Operator of Health and Human Service's declaration that [...] By: #### C MP, LIPID, TSH #### [facility] [address] [address] [address] Bertram Paulino PROF 14(COMP METB)on 022 Albumin [Mass/Vol] 3.3 g/dL Critically low 3.4-5.0 Th e [facility] Comment on above: Performed By: #### C MP, LIPID, TSH #### [facility] [address] [place] [address] Dr. Bertram Paulino Albumin/Globulin [Mass ratio] 1.1 {ratio} Normal [facility] Comment on above: Performed By: #### C MP, LIPID, TSH #### [facility] [address] [address] [address] Bertram Paulino ALP [Catalytic activity/Vol] 47 U/L Normal 46-116 [facility] Comment on above: Performed By: #### C MP, LIPID, TSH #### [facility] [address] [place] [address] Dr. Bertram Paulino ALT [Catalytic activity/Vol] 42 U/L Normal 14-59 [facility] Comment on above: Performed By: #### C MP, LIPID, TSH #### [facility] [address] [place] [address] Dr. Bertram Paulino Anion gap [Moles/Vol] 14.3 mmol/L Normal [facility] Comment on above: Performed By: #### C MP, LIPID, TSH #### [facility] [address] [place] [address] Dr. Bertram Paulino AST [Catalytic activity/Vol] 20 U/L Normal 15-37 [facility] Comment on above: Performed By: #### C MP, LIPID, TSH #### [facility] [address] [place] [address] Dr. Bertram Paulino Bilirubin [Mass/Vol] 0.3 mg/dL Normal 0.2-1.0 [facility] Comment on above: Performed By: #### C MP, LIPID, TSH #### [facility] [address] [place] [address] Dr. Bertram Paulino Calcium [Mass/Vol] 9.0 mg/dL Normal 8.5-10.1 [facility] Comment on above: Performed By: #### C MP, LIPID, TSH #### [facility] [address] [place] [address] Dr. Bertram Paulino Chloride [Moles/Vol] 105 mmol/L Normal 98-107 [facility] Comment on above: Performed By: #### C MP, LIPID, TSH #### [facility] [address] [place] [address] Dr. Bertram Paulino CO2 [Moles/Vol] 26.5 mmol/L Normal 21.0-32.0 [facility] Comment on above: Performed By: #### C MP, LIPID, TSH #### [facility] [address] [address] [address] Bertram Paulino Creatinine [Mass/Vol] 0.77 mg/dL Normal 0.55-1.02 [facility] Comment on above: Performed By: #### C MP, LIPID, TSH #### [facility] [address] [place] [address] Dr. Bertram Paulino EGFR-AF LATVIAN >60 Normal >=60 [facility] Comment on above: Performed By: #### C MP, LIPID, TSH #### [facility] [address] [place] [address] Dr. Bertram Paulino EGFR-NON AF LATVIAN >60 Normal >=60 [facility] Comment on above: Performed By: #### C MP, LIPID, TSH #### [facility] [address] [place] [address] Dr. Bertram Paulino Globulin (S) [Mass/Vol] 3.1 g/dL Normal [facility] Comment on above: Performed By: #### C MP, LIPID, TSH #### [facility] [address] [place] [address] Dr. Bertram Paulino Glucose [Mass/Vol] 99 mg/dL Normal 74-106 [facility] Comment on above: Performed By: #### C MP, LIPID, TSH #### [facility] [address] [place] [address] Dr. Bertram Paulino Potassium [Moles/Vol] 3.8 mmol/L Normal 3.5-5.1 [facility] Comment on above: Performed By: #### C MP, LIPID, TSH #### [facility] [address] [place] [address] Dr. Bertram Paulino Protein [Mass/Vol] 6.4 g/dL Normal 6.4-8.2 [facility] Comment on above: Performed By: #### C MP, LIPID, TSH #### [facility] [address] [place] [address] Dr. Bertram Paulino Sodium [Moles/Vol] 142 mmol/L Normal 136-145 [facility] Comment on above: Performed By: #### C MP, LIPID, TSH #### [facility] [address] [place] [address] Dr. Bertram Paulino Urea nitrogen [Mass/Vol] 8.0 mg/dL Normal 7.0-18.0 [facility] Comment on above: Performed By: #### C MP, LIPID, TSH #### [facility] [address] [place] [address] Dr. Bertram Paulino Urea nitrogen/Creatinine [Mass ratio] 10.4 mg/mg Normal [facility] Comment on above: Performed By: #### C MP, LIPID, TSH #### [facility] [address] [place] [address] Dr. Bertram Paulino UA (CLEAN/CATCH) HVAC JOURNEYMAN/MICRO I F IND.on 05-15-2022 Bilirubin Ql (U) Negative Normal NEGATIVE [facility] Comment on above: Performed By: #### C MP, LIPID, TSH #### [facility] [address] [place] [address] Dr. Bertram Paulino Clarity (U) SL CLOUDY Abnormal CLEAR [facility] Comment on above: Performed By: #### C MP, LIPID, TSH #### [facility] [address] [place] [address] Dr. Bertram Paulino Color (U) LT. YELLOW Normal YELLOW [facility] Comment on above: Performed By: #### C MP, LIPID, TSH #### [facility] [address] [place] [address] Dr. Bertram Paulino Glucose Ql (U) Negative Normal NEGATIVE [facility] Comment on above: Performed By: #### C MP, LIPID, TSH #### [facility] [address] [place] [address] Dr. Bertram Paulino Hemoglobin Ql (U) Negative Normal NEGATIVE [facility] Comment on above: Performed By: #### C MP, LIPID, TSH #### [facility] [address] [address] [address] Bertram Paulino Ketones Ql (U) Negative Normal NEGATIVE [facility] Comment on above: Performed By: #### C MP, LIPID, TSH #### [facility] [address] [address] [address] Bertram Paulino LEUKOCYTES Negative Normal NEGATIVE [facility] Comment on above: Performed By: #### C MP, LIPID, TSH #### [facility] [address] [address] [address] Bertram Paulino Nitrite Ql (U) Negative Normal NEGATIVE [facility] Comment on above: Performed By: #### C MP, LIPID, TSH #### [facility] [address] [place] [address] Dr. Bertram Paulino pH (U) 5.5 [pH] Normal 5-9 [facility] Comment on above: Performed By: #### C MP, LIPID, TSH #### [facility] [address] [address] [address] Bertram Paulino SPEC GRAVITY 1.010 Normal 1.005-<=1.025 [facility] Comment on above: Performed By: #### C MP, LIPID, TSH #### [facility] [address] [address] [address] Bertram Paulino UA PROTEIN Negative Normal NEGATIVE/ TRACE [facility] Comment on above: Performed By: #### C MP, LIPID, TSH #### [facility] [address] [address] [address] Bertram Paulino UR MICRO IND NOT INDICATED Normal [facility] Comment on above: Performed By: #### C MP, LIPID, TSH #### [facility] [address] [place] [address] Dr. Bertram Paulino Urobilinogen Qn (U) 0.2 {Yazmin'U}/dL Normal 0.2 - 1. 0 [facility] Comment on above: Performed By: #### C MP, LIPID, TSH #### [facility] [address] [address] [address] Bertram Paulino CARDIAC ERASMO ADMITon 022 CK [Catalytic activity/Vol] 117 U/L Normal 26-192 [facility] Comment on above: Performed By: #### C MP, LIPID, TSH #### [facility] [address] [address] [address] Bertram Paulino CK.MB [Mass/Vol] 2.08 ng/mL Normal <=3.60 [facility] Comment on above: Performed By: #### C MP, LIPID, TSH #### [facility] [address] [address] [address] Bertram Paulino HSTROP 4.7 pg/mL Normal 4.0-51.3 [facility] Comment on above: Result Comment: CUT- OFF POINTS HAVE BEEN ESTABLISHED BASED ON THE FOURTH UNIVERSAL DEFINITIONS OF MYOCARDIAL INFARCTION. THE UPPER REFERENCE LIMIT (URL) OF TROPONIN, DEFINED THE 99TH PERCENTILE OF cTnI DISTRIBUTION IN A REFERENCE POPULATION, HAS BEEN CONFIRMED THE DECISION THRESHOLD FOR AR DIAGNOSIS. Performed By: #### C MP, LIPID, TSH #### [facility] [address] [address] [address] Bertram Paulino JEAN-PIERRE 28 ng/mL Normal 9-82 [facility] Comment on above: Performed By: #### C MP, LIPID, TSH #### [facility] [address] [address] [address] Bertram Paulino CBC AUTO DIFFon 05-14-2022 BASO # 0.0 103/ul Normal 0.0-0.1 [facility] Comment on above: Performed By: #### C MP, LIPID, TSH #### [facility] [address] [address] [address] Bertram Paulino Basophils/100 WBC (Bld) 0.5 % Normal 0.2-2.0 [facility] Comment on above: Performed By: #### C MP, LIPID, TSH #### [facility] [address] [address] [address] Bertram Paulino EO # 0.1 103/ul Normal 0.0-0.7 [facility] Comment on above: Performed By: #### C MP, LIPID, TSH #### [facility] [address] [place] [address] Dr. Bertram Paulino Eosinophils/100 WBC (Bld) 1.6 % Normal 0.9-7.0 [facility] Comment on above: Performed By: #### C MP, LIPID, TSH #### [facility] [address] [place] [address] Dr. Bertram Paulino Erythrocyte distribution width (RBC) [Ratio] 13.4 % Normal 11.0-15.0 [facility] Comment on above: Performed By: #### C MP, LIPID, TSH #### [facility] [address] [place] [address] Dr. Bertram Paulino Hematocrit (Bld) [Volume fraction] 37.4 % Normal 36.0-48.0 [facility] Comment on above: Performed By: #### C MP, LIPID, TSH #### [facility] [address] [place] [address] Dr. Bertram Paulino Hemoglobin (Bld) [Mass/Vol] 12.3 g/dL Normal 12.0-16.0 [facility] Comment on above: Performed By: #### C MP, LIPID, TSH #### [facility] [address] [place] [address] Dr. Bertram Paulino IG # 0.02 10e3/ul Normal 0.00-0.03 [facility] Comment on above: Performed By: #### C MP, LIPID, TSH #### [facility] [address] [place] [address] Dr. Bertram Paulino IG % 0.3 % Normal 0.0-0.5 [facility] Comment on above: Performed By: #### C MP, LIPID, TSH #### [facility] [address] [place] [address] Dr. Bertram Paulino LYMPH # 2.6 103/ul Normal 1.2-3.8 [facility] Comment on above: Performed By: #### C MP, LIPID, TSH #### [facility] [address] [address] [address] Bertram Paulino Lymphocytes/100 WBC (Bld) 34.5 % Normal 20.5-60.0 [facility] Comment on above: Performed By: #### C MP, LIPID, TSH #### [facility] [address] [place] [address] Dr. Bertram Paulino MANUAL DIFF REQ NO Normal [facility] Comment on above: Performed By: #### C MP, LIPID, TSH #### [facility] [address] [place] [address] Dr. Bertram Paulino MCH (RBC) [Entitic mass] 29.4 pg Normal 26.7-34.0 [facility] Comment on above: Performed By: #### C MP, LIPID, TSH #### [facility] [address] [place] [address] Dr. Bertram Paulino MCHC (RBC) [Mass/Vol] 32.9 g/dL Normal 29.9-35.2 [facility] Comment on above: Performed By: #### C MP, LIPID, TSH #### [facility] [address] [place] [address] Dr. Bertram Paulino MCV (RBC) [Entitic vol] 89.3 fL Normal 81.0-99.0 [facility] Comment on above: Performed By: #### C MP, LIPID, TSH #### [facility] [address] [place] [address] Dr. Bertram Paulino MONO # 0.5 103/ul Normal 0.3-0.8 [facility] Comment on above: Performed By: #### C MP, LIPID, TSH #### [facility] [address] [place] [address] Dr. Bertram Paulino Monocytes/100 WBC (Bld) 6.3 % Normal 1.7-12.0 [facility] Comment on above: Performed By: #### C MP, LIPID, TSH #### [facility] [address] [place] [address] Dr. Bertram Paulino NEUT # 4.3 103/ul Normal 1.4-6.5 [facility] Comment on above: Performed By: #### C MP, LIPID, TSH #### [facility] [address] [address] [address] Bertram Paulino Neutrophils/100 WBC (Bld) 56.8 % Normal 43.0-75.0 [facility] Comment on above: Performed By: #### C MP, LIPID, TSH #### [facility] [address] [address] [address] Bertram Paulino Platelet mean volume (Bld) [Entitic vol] 10.7 fL Normal 9.5-13.5 [facility] Comment on above: Performed By: #### C MP, LIPID, TSH #### [facility] [address] [address] [address] Bertram Paulino PLT 295 103/ul Normal 150-450 [facility] Comment on above: Performed By: #### C MP, LIPID, TSH #### [facility] [address] [place] [address] Dr. Bertram Paulino RBC 4.19 106/ul Critically low 4.20-5.40 [facility] Comment on above: Performed By: #### C MP, LIPID, TSH #### [facility] [address] [address] [address] Bertram Paulino WBC 7.6 103/ul Normal 4.0-11.0 [facility] Comment on above: Performed By: #### C MP, LIPID, TSH #### [facility] [address] [place] [address] Dr. Bertram Paulino D-DIMERon 05-14-2022 D-DIMER 0.65 mg/L FEU Critically high <=0.59 [facility] Comment on above: Performed By: #### D DIM #### [facility] [address] [place] [address] Dr. Bertram Paulino D-DIMER COMMENTS SEE BELOW Normal [facility] Comment on above: Result Comment: Incr eases [...] hospitalization. Performed By: #### D DIM #### [facility] [address] [place] [address] Dr. Bertram Paulino PROF CHEM 8 (BAS METB)on Anion gap [Moles/Vol] 10.7 mmol/L Normal [facility] Comment on above: Performed By: #### C MP, LIPID, TSH #### [facility] [address] [place] [address] Dr. Bertram Paulino Calcium [Mass/Vol] 9.6 mg/dL Normal 8.5-10.1 [facility] Comment on above: Performed By: #### C MP, LIPID, TSH #### [facility] [address] [place] [address] Dr. Bertram Paulino Chloride [Moles/Vol] 102 mmol/L Normal 98-107 [facility] Comment on above: Performed By: #### C MP, LIPID, TSH #### [facility] [address] [place] [address] Dr. Bertram Paulino CO2 [Moles/Vol] 28.8 mmol/L Normal 21.0-32.0 [facility] Comment on above: Performed By: #### C MP, LIPID, TSH #### [facility] [address] [place] [address] Dr. Bertram Paulino Creatinine [Mass/Vol] 0.83 mg/dL Normal 0.55-1.02 [facility] Comment on above: Performed By: #### C MP, LIPID, TSH #### [facility] [address] [place] [address] Dr. Bertram Paulino EGFR-AF LATVIAN >60 Normal >=60 [facility] Comment on above: Performed By: #### C MP, LIPID, TSH #### [facility] [address] [place] [address] Dr. Bertram Paulino EGFR-NON AF LATVIAN >60 Normal >=60 [facility] Comment on above: Performed By: #### C MP, LIPID, TSH #### [facility] [address] [address] [address] Bertram Paulino Glucose [Mass/Vol] 128 mg/dL Critically high 74-106 [facility] Comment on above: Performed By: #### C MP, LIPID, TSH #### [facility] [address] [address] [address] eBrtram Paulino Potassium [Moles/Vol] 3.5 mmol/L Normal 3.5-5.1 [facility] Comment on above: Performed By: #### C MP, LIPID, TSH #### [facility] [address] [address] [address] Bertram Paulino Sodium [Moles/Vol] 138 mmol/L Normal 136-145 [facility] Comment on above: Performed By: #### C MP, LIPID, TSH #### [facility] [address] [address] [address] Bertram Paulino Urea nitrogen [Mass/Vol] 8.0 mg/dL Normal 7.0-18.0 [facility] Comment on above: Performed By: #### C MP, LIPID, TSH #### [facility] [address] [address] [address] Bertram Paulino Urea nitrogen/Creatinine [Mass ratio] 9.6 mg/mg Normal [facility] Comment on above: Performed By: #### C MP, LIPID, TSH #### [facility] [address] [place] [address] Dr. Bertram Paulino XR CHEST 1 Von [...] VANESSA MARTINEZ Date: 2022-05-14 19:51 Normal [facility] CARDIAC ERASMO ADMITon 022 CK [Catalytic activity/Vol] 45 U/L Normal 26-192 [facility] Comment on above: Performed By: #### C MADM, TSH, CMP ####[facility] [id number] [id number] Bertram Paulino CK.MB [Mass/Vol] ng/mL Normal <=3.60 [facility] Comment on above: Performed By: #### C MADM, TSH, CMP ####[facility] [id number] [address]DrHazel Paulino HSTROP 5.1 pg/mL Normal 4.0-51.3 [facility] Comment on above: Result Comment: CUT- OFF POINTS HAVE BEEN ESTABLISHED BASED ON THE FOURTH UNIVERSAL DEFINITIONS OF MYOCARDIAL INFARCTION. THE UPPER REFERENCE LIMIT (URL) OF TROPONIN, DEFINED THE 99TH PERCENTILE OF cTnI DISTRIBUTION IN A REFERENCE POPULATION, HAS BEEN CONFIRMED THE DECISION THRESHOLD FOR AR DIAGNOSIS. Performed By: #### C MADM, TSH, CMP ####[facility] [id number] [address]DrHazel Paulino JEAN-PIERRE 36 ng/mL Normal 9-82 [facility] Comment on above: Performed By: #### C MADM, TSH, CMP ####[facility] [id number] [address]DrHazel Paulino CBC AUTO DIFFon 05-04-2022 BASO # 0.0 103/ul Normal 0.0-0.1 [facility] Comment on above: Performed By: #### C BC #### [facility] [address] [place] [address] Dr. Bertram Paulino Basophils/100 WBC (Bld) 0.6 % Normal 0.2-2.0 [facility] Comment on above: Performed By: #### C BC #### [facility] [address] [place] [address] Dr. Bertram Paulino EO # 0.1 103/ul Normal 0.0-0.7 [facility] Comment on above: Performed By: #### C BC #### [facility] [address] [address] [address] Bertram Paulino Eosinophils/100 WBC (Bld) 1.7 % Normal 0.9-7.0 [facility] Comment on above: Performed By: #### C BC #### [facility] [address] [place] [address] Dr. Bertram Paulino Erythrocyte distribution width (RBC) [Ratio] 13.2 % Normal 11.0-15.0 [facility] Comment on above: Performed By: #### C BC #### [facility] [address] [place] [address] Dr. Bertram Paulino Hematocrit (Bld) [Volume fraction] 40.9 % Normal 36.0-48.0 [facility] Comment on above: Performed By: #### C BC #### [facility] [address] [place] [address] Dr. Bertram Paulino Hemoglobin (Bld) [Mass/Vol] 13.6 g/dL Normal 12.0-16.0 [facility] Comment on above: Performed By: #### C BC #### [facility] [address] [place] [address] Dr. Bertram Paulino IG # 0.02 10e3/ul Normal 0.00-0.03 [facility] Comment on above: Performed By: #### C BC #### [facility] [address] [place] [address] Dr. Bertram Paulino IG % 0.3 % Normal 0.0-0.5 [facility] Comment on above: Performed By: #### C BC #### [facility] [address] [place] [address] Dr. Bertram Paulino LYMPH # 2.5 103/ul Normal 1.2-3.8 [facility] Comment on above: Performed By: #### C BC #### [facility] [address] [place] [address] Dr. Bertram Paulino Lymphocytes/100 WBC (Bld) 36.0 % Normal 20.5-60.0 [facility] Comment on above: Performed By: #### C BC #### [facility] [address] [place] [address] Dr. Bertram Paulino MANUAL DIFF REQ NO Normal [facility] Comment on above: Performed By: #### C BC #### [facility] [address] [address] [address] Bertram Paulino MCH (RBC) [Entitic mass] 29.0 pg Normal 26.7-34.0 [facility] Comment on above: Performed By: #### C BC #### [facility] [address] [place] [address] Dr. Bertram Paulino MCHC (RBC) [Mass/Vol] 33.3 g/dL Normal 29.9-35.2 [facility] Comment on above: Performed By: #### C BC #### [facility] [address] [place] [address] Dr. Bertram Paulino MCV (RBC) [Entitic vol] 87.2 fL Normal 81.0-99.0 [facility] Comment on above: Performed By: #### C BC #### [facility] [address] [place] [address] Dr. Bertram Paulino MONO # 0.5 103/ul Normal 0.3-0.8 [facility] Comment on above: Performed By: #### C BC #### [facility] [address] [place] [address] Dr. Bertram Paulino Monocytes/100 WBC (Bld) 6.9 % Normal 1.7-12.0 [facility] Comment on above: Performed By: #### C BC #### [facility] [address] [place] [address] Dr. Bertram Paulino NEUT # 3.8 103/ul Normal 1.4-6.5 [facility] Comment on above: Performed By: #### C BC #### [facility] [address] [place] [address] Dr. Bertram Paulino Neutrophils/100 WBC (Bld) 54.5 % Normal 43.0-75.0 [facility] Comment on above: Performed By: #### C BC #### [facility] [address] [place] [address] Dr. Bertram Paulino Platelet mean volume (Bld) [Entitic vol] 10.3 fL Normal 9.5-13.5 [facility] Comment on above: Performed By: #### C BC #### [facility] [address] [address] [address] Bertram Paulino PLT 316 103/ul Normal 150-450 [facility] Comment on above: Performed By: #### C BC #### [facility] [address] [place] [address] Dr. Bertram Paulnio RBC 4.69 106/ul Normal 4.20-5.40 [facility] Comment on above: Performed By: #### C BC #### [facility] [address] [place] [address] Dr. Bertram Paulino WBC 6.9 103/ul Normal 4.0-11.0 [facility] Comment on above: Performed By: #### C BC #### [facility] [address] [place] [address] Dr. Bertram Paulino Covid-19 PCR ([facility])on 04-14 SARS-CoV-2 (COVID-19) RNA KIRT+probe Ql (Unsp spec) Not detected Normal NOT DETECTED [facility] Comment on above: Result Comment: When diagnostic [...] for this test is supported by the D[employer] Operator of Health and Human Service's declaration that [...] By: #### C MP, LIPID, TSH #### [facility] [address] [place] [address] Dr. Bertram Paulino ER URINE PROFILEon 2 Bilirubin Ql (U) Negative Normal NEGATIVE [facility] Comment on above: Performed By: #### C MP, LIPID, TSH #### [facility] [address] [address] [address] Bertram Paulino Clarity (U) CLEAR Normal CLEAR [facility] Comment on above: Performed By: #### C MP, LIPID, TSH #### [facility] [address] [address] [address] Bertram Paulino Color (U) YELLOW Normal YELLOW [facility] Comment on above: Performed By: #### C MP, LIPID, TSH #### [facility] [facility] [address] [address] [address] Bertram ETIENNE A micrscopic examination will be performed if indicated. Normal [facility] Comment on above: Performed By: #### C MP, LIPID, TSH #### [facility] [address] [place] [address] Dr. Bertram Paulino Glucose Ql (U) Negative Normal NEGATIVE [facility] Comment on above: Performed By: #### C MP, LIPID, TSH #### [facility] [address] [address] [address] Bertram Paulino Hemoglobin Ql (U) Negative Normal NEGATIVE [facility] Comment on above: Performed By: #### C MP, LIPID, TSH #### [facility] [address] [place] [address] Dr. Bertram Paulino Ketones Ql (U) TRACE Abnormal NEGATIVE [facility] Comment on above: Performed By: #### C MP, LIPID, TSH #### [facility] [address] [address] [address] Bertram Paulino LEUKOCYTES Negative Normal NEGATIVE [facility] Comment on above: Performed By: #### C MP, LIPID, TSH #### [facility] [address] [address] [address] Bertram Paulino Nitrite Ql (U) Negative Normal NEGATIVE [facility] Comment on above: Performed By: #### C MP, LIPID, TSH #### [facility] [address] [place] [address] Dr. Bertram Paulino pH (U) 7.5 [pH] Normal 5-9 [facility] Comment on above: Performed By: #### C MP, LIPID, TSH #### [facility] [address] [address] [address] Bertram Paulino SPEC GRAVITY 1.015 Normal 1.005-<=1.025 [facility] Comment on above: Performed By: #### C MP, LIPID, TSH #### [facility] [address] [address] [address] Bertram Paulino UA PROTEIN TRACE Normal NEGATIVE/ TRACE [facility] Comment on above: Performed By: #### C MP, LIPID, TSH #### [facility] [address] [address] [address] Bertram Paulino UR MICRO IND NOT INDICATED Normal [facility] Comment on above: Performed By: #### C MP, LIPID, TSH #### [facility] [address] [address] [address] Bertram Paulino Urobilinogen Qn (U) 0.2 {Yazmin'U}/dL Normal 0.2 - 1. 0 [facility] Comment on above: Performed By: #### C MP, LIPID, TSH #### [facility] [address] [address] [address] Bertram Paulino PROF 14(COMP METB)on 022 Albumin [Mass/Vol] 3.7 g/dL Normal 3.4-5.0 [facility] Comment on above: Performed By: #### C MADM, TSH, CMP ####[facility] [address] [address]Dr. Bertram Paulino Albumin/Globulin [Mass ratio] 1.0 {ratio} Normal [facility] Comment on above: Performed By: #### C MADM, TSH, CMP ####[facility] [address] [address]Dr. Bertram Paulino ALP [Catalytic activity/Vol] 59 U/L Normal 46-116 [facility] Comment on above: Performed By: #### C MADM, TSH, CMP ####[facility] [address] [id number]. Bertram Paulino ALT [Catalytic activity/Vol] 55 U/L Normal 14-59 [facility] Comment on above: Performed By: #### C MADM, TSH, CMP ####[facility] [address] [id number]. Bertram Paulino Anion gap [Moles/Vol] 13.6 mmol/L Normal [facility] Comment on above: Performed By: #### C MADM, TSH, CMP ####[facility] [address] [address]Dr. Bertram Paulino AST [Catalytic activity/Vol] 33 U/L Normal 15-37 [facility] Comment on above: Performed By: #### C MADM, TSH, CMP ####[facility] [address] [address]Dr. Bertram Paulino Bilirubin [Mass/Vol] 0.7 mg/dL Normal 0.2-1.0 [facility] Comment on above: Performed By: #### C MADM, TSH, CMP ####[facility] [address] [address]Dr. Bertram Paulino Calcium [Mass/Vol] 9.3 mg/dL Normal 8.5-10.1 [facility] Comment on above: Performed By: #### C MADM, TSH, CMP ####[facility] [address] [address]Dr. Bertram Paulino Chloride [Moles/Vol] 102 mmol/L Normal 98-107 [facility] Comment on above: Performed By: #### C MADM, TSH, CMP ####[facility] [address] [address]Dr. Bertram Paulino CO2 [Moles/Vol] 28.1 mmol/L Normal 21.0-32.0 [facility] Comment on above: Performed By: #### C MADM, TSH, CMP ####[facility] [address] [address]Dr. Bertram Paulino Creatinine [Mass/Vol] 0.80 mg/dL Normal 0.55-1.02 [facility] Comment on above: Performed By: #### C MADM, TSH, CMP ####[facility] [address] [address]Dr. Bertram Paulino EGFR-AF LATVIAN >60 Normal >=60 [facility] Comment on above: Performed By: #### C MADM, TSH, CMP ####[facility] [address] [address]Dr. Vivianalan Paulino EGFR-NON AF LATVIAN >60 Normal >=60 [facility] Comment on above: Performed By: #### C MADM, TSH, CMP ####[facility] [address] [address]Dr. Bertram Paulino Globulin (S) [Mass/Vol] 3.7 g/dL Normal [facility] Comment on above: Performed By: #### C MADM, TSH, CMP ####[facility] [address] [place], [place] [address]Dr. Vivianalan Paulino Glucose [Mass/Vol] 104 mg/dL Normal 74-106 [facility] Comment on above: Performed By: #### C MADM, TSH, CMP ####[facility] [address] [place], [place] [address]Dr. Bertram Paulino Potassium [Moles/Vol] 3.7 mmol/L Normal 3.5-5.1 [facility] Comment on above: Performed By: #### C MADM, TSH, CMP ####[facility] [address] [place], [place] [address]Dr. Vivianalan Paulino Protein [Mass/Vol] 7.4 g/dL Normal 6.4-8.2 [facility] Comment on above: Performed By: #### C MADM, TSH, CMP ####[facility] [address] [place], [place] [address]Dr. Bertram Paulino Sodium [Moles/Vol] 140 mmol/L Normal 136-145 [facility] Comment on above: Performed By: #### C MADM, TSH, CMP ####[facility] [address] [place], [place] [address]Dr. Bertram Paulino Urea nitrogen [Mass/Vol] 19.0 mg/dL Critically high 7.0-18.0 [facility] Comment on above: Performed By: #### C JASMYN TSH, CMP ####[facility] [address] [place], [place] [address]Um. Bertrma Paulino Urea nitrogen/Creatinine [Mass ratio] 23.8 mg/mg Normal [facility] Comment on above: Performed By: #### C JASMYN TSH, CMP ####[facility] [address] [place], [place] [address]Un. Bertram Paulino TSHon 05-04-2022 TSH 1.746 uIU/mL Normal 0.358-3.740 [facility] Comment on above: Performed By: #### C VINOD VINES, CMP ####[facility] [address] [place], [place] [address]Dq. Bertram Paulino B-Type Natriuretic Peptideon 12-28-2021 Natriuretic peptide B (Bld) [Mass/Vol] 15.0 pg/mL Normal 5-100 [facility] Comment on above: Result Comment: PERF ORMED BY: [place] [address] PATHOLOGIST CAR TOP BOLTER STORMY MTZ M.D. Performed By: #### B COPY HOLDER #### [facility] [address] [place] [address] Basic Metabolic Panelon 12-14 Calcium [Mass/Vol] 9.4 mg/dL Normal 8.2-10.2 [facility] Comment on above: Performed By: #### C BC, PT, PTT, HEPATIC, BMP, LIPASE #### [facility] [address] [place] [address] [place] Chloride [Moles/Vol] 101 mmol/L Normal 95-114 [facility] Comment on above: Performed By: #### C BC, PT, PTT, HEPATIC, BMP, LIPASE #### [facility] [address] [place] [address] [place] CO2 [Moles/Vol] 21.0 mmol/L Low 22.0-30.0 [facility] Comment on above: Performed By: #### C BC, PT, PTT, HEPATIC, BMP, LIPASE #### [address] Creatinine [Mass/Vol] 0.54 mg/dL Normal 0.44-1.03 [facility] Comment on above: Performed By: #### C BC, PT, PTT, HEPATIC, BMP, LIPASE #### [address] Creatinine Clr Calc Pharmacy 153.81 [facility] Comment on above: Performed By: #### C BC, PT, PTT, HEPATIC, BMP, LIPASE #### [address] Estimated GFR ( Kristen > 60 [facility] Comment on above: Result Comment: GFR estimated reference range: According to KDOQI guidelines, <60 ml/min/1.73m2 is sufficient to diagnose a patient with chronic kidney disease. Performed By: #### C BC, PT, PTT, HEPATIC, BMP, LIPASE #### [address] Estimated GFR (Non- Am > 60 [facility] Comment on above: Performed By: #### C BC, PT, PTT, HEPATIC, BMP, LIPASE #### [address] Glucose [Mass/Vol] 98 mg/dL Normal 70-100 [facility] Comment on above: Result Comment: [place] Glucose Reference Range is dependent on time and content of last meal. Glucose of more than 200 mg/dL in a nonstressed, ambulatory subject supports the diagnosis of Diabetes Mellitus. ADA recommended reference range Performed By: #### C BC, PT, PTT, HEPATIC, BMP, LIPASE #### [address] Potassium [Moles/Vol] 3.7 mmol/L Normal 3.5-5.1 [facility] Comment on above: Performed By: #### C BC, PT, PTT, HEPATIC, BMP, LIPASE #### [address] [place] [address] [facility] Sodium [Moles/Vol] 134 mmol/L Low 136-146 [facility] Comment on above: Performed By: #### C BC, PT, PTT, HEPATIC, BMP, LIPASE #### [facility] [address] [id number] [facility] Urea nitrogen [Mass/Vol] 4 mg/dL Low 9-23 [facility] Comment on above: Performed By: #### C BC, PT, PTT, HEPATIC, BMP, LIPASE #### [facility] [address] [id number] [facility] CT abdomen pelvis w conon CT abdomen pelvis w con [facility] [place] [address] [place] [address] CT Scan Report Signed Patient: Lu Cancino MR#: [id number] 588 : 1970 Acct:[id number] Age/Sex: 50 / F ADM Date: 12/28/21 Loc: ER Room: Type: [facility] ER Attending Dr: Ordering [...] Erasmo Brooks M.D.12/28/2021 8:14 PM Dictation Location: [address] [address] Transcribed By: [facility] 12/28/212013 Dictated By: Erasmo Brooks II, MD 12/28/212006 Signed By: 12/28/212013 Normal [facility] Complete Blood Count Auto Di ffon 12-28-2021 Basophils (Bld) [#/Vol] 0.0 10*3/uL Normal 0.0-0.2 [facility] Comment on above: Result Comment: PERF ORMED BY: [address] [place] [address] PATHOLOGIST CAR TOP BOLTER STORMY MTZ M.D. Performed By: #### C BC, PT, PTT, HEPATIC, BMP, LIPASE #### [facility] [address] [place] [address] Basophils/100 WBC (Bld) 0.9 % Normal . [facility] Comment on above: Performed By: #### C BC, PT, PTT, HEPATIC, BMP, LIPASE #### [facility] [address] Eosinophils (Bld) [#/Vol] 0.0 10*3/uL Normal 0.0-0.45 [facility] Comment on above: Performed By: #### C BC, PT, PTT, HEPATIC, BMP, LIPASE #### [address] Eosinophils/100 WBC (Bld) 0.7 % Normal . [facility] Comment on above: Performed By: #### C BC, PT, PTT, HEPATIC, BMP, LIPASE #### [address] Erythrocyte distribution width (RBC) [Ratio] 14.9 % Normal 11.9-15.3 [facility] Comment on above: Performed By: #### C BC, PT, PTT, HEPATIC, BMP, LIPASE #### [address] Hematocrit (Bld) [Volume fraction] 37.6 % Normal 34.0-46.4 [facility] Comment on above: Performed By: #### C BC, PT, PTT, HEPATIC, BMP, LIPASE #### [address] Hemoglobin (Bld) [Mass/Vol] 12.8 g/dL Normal 11.8-15.4 [facility] Comment on above: Performed By: #### C BC, PT, PTT, HEPATIC, BMP, LIPASE #### [address] Lymphocytes (Bld) [#/Vol] 1.7 10*3/uL Normal 1.00-4.8 [facility] Comment on above: Performed By: #### C BC, PT, PTT, HEPATIC, BMP, LIPASE #### [address] Lymphocytes/100 WBC (Bld) 34.3 % Normal . [facility] Comment on above: Performed By: #### C BC, PT, PTT, HEPATIC, BMP, LIPASE #### [address] MCH (RBC) [Entitic mass] 30.2 pg Normal 24.7-34.3 [facility] Comment on above: Performed By: #### C BC, PT, PTT, HEPATIC, BMP, LIPASE #### [address] MCV (RBC) [Entitic vol] 88.6 fL Normal 80-100 [facility] Comment on above: Performed By: #### C BC, PT, PTT, HEPATIC, BMP, LIPASE #### [address] Mean Corpuscular HGB Conc 34.1 g/dL Normal 32.0-35.0 [facility] Comment on above: Performed By: #### C BC, PT, PTT, HEPATIC, BMP, LIPASE #### [address] Monocytes (Bld) [#/Vol] 0.6 10*3/uL Normal 0.0-0.8 [facility] Comment on above: Performed By: #### C BC, PT, PTT, HEPATIC, BMP, LIPASE #### [address] Monocytes/100 WBC (Bld) 12.1 % Normal . [facility] Comment on above: Performed By: #### C BC, PT, PTT, HEPATIC, BMP, LIPASE #### [address] Neutrophils (Bld) [#/Vol] 2.5 10*3/uL Normal 1.8-7.7 [facility] Comment on above: Performed By: #### C BC, PT, PTT, HEPATIC, BMP, LIPASE #### [address] Neutrophils/100 WBC (Bld) 52.0 % Normal . [facility] Comment on above: Performed By: #### C BC, PT, PTT, HEPATIC, BMP, LIPASE #### [address] Nucleated RBC/100 WBC (Bld) [Ratio] 0.0 % Normal 0-0.5 [facility] Comment on above: Performed By: #### C BC, PT, PTT, HEPATIC, BMP, LIPASE #### [facility] [address] Platelet mean volume (Bld) [Entitic vol] 7.8 fL Normal 6.3-10.7 [facility] Comment on above: Performed By: #### C BC, PT, PTT, HEPATIC, BMP, LIPASE #### [facility] [address] Platelets (Bld) [#/Vol] 458 10*3/uL High 150-450 [facility] Comment on above: Performed By: #### C BC, PT, PTT, HEPATIC, BMP, LIPASE #### [facility] [address] RBC (Bld) [#/Vol] 4.25 10*6/uL Normal 3.60-5.00 [facility] Comment on above: Performed By: #### C BC, PT, PTT, HEPATIC, BMP, LIPASE #### [facility] [address] WBC (Bld) [#/Vol] 4.9 10*3/uL Normal 4.5-11.0 [facility] Comment on above: Performed By: #### C BC, PT, PTT, HEPATIC, BMP, LIPASE #### [address] ECG 12 lead ECGon 12-28-2021 ECG 12 lead ECG [facility] [place] [address] Electrocardiograph Report Signed Patient: Lu Cancino MR#: [id number] : 1970 Acct:[id number] Age/Sex: 50 / F ADM Date: 12/28/21 Loc: ER Room: Type: [facility] ER Attending Dr: Ordering Provider: Ricardo Ricardo [...] sinus rhythm Confirmed by Ricardo RICARDO DO ([id number]) on 12/28/2021 9:15:05 PM Referred By: Electronically Signed By:Ricardo RICARDO DO Transcribed By: MUS Signed By Ricardo Ricardo DO 0 12/28/212114 [facility] HCG,Urineon 12-28-2021 Beta HCG ( test) Ql (U) Negative [facility] Comment on above: Order Comment: Name Collection Type:: Clean-Voided Midstream Result Comment: PERF ORMED BY: [place] [address] PATHOLOGIST CAR TOP BOLTER STORMY MTZ M.D. Performed By: #### C BC, PT, PTT, HEPATIC, BMP, LIPASE #### [address] Hepatic Panelon 12-28-2021 Albumin [Mass/Vol] 4.0 g/dL Normal 3.2-5.5 [facility] Comment on above: Performed By: #### C BC, PT, PTT, HEPATIC, BMP, LIPASE #### [facility] [address] [place] [address] Albumin/Globulin [Mass ratio] 1.6 {ratio} [facility] Comment on above: Performed By: #### C BC, PT, PTT, HEPATIC, BMP, LIPASE #### [facility] [address] [place] [address] ALP [Catalytic activity/Vol] 38 U/L Normal 32-92 [facility] Comment on above: Performed By: #### C BC, PT, PTT, HEPATIC, BMP, LIPASE #### [place] [address] [place] ALT [Catalytic activity/Vol] 44 U/L Normal 10-60 [facility] Comment on above: Performed By: #### C BC, PT, PTT, HEPATIC, BMP, LIPASE #### [address] AST [Catalytic activity/Vol] 38 U/L Normal 10-42 [facility] Comment on above: Performed By: #### C BC, PT, PTT, HEPATIC, BMP, LIPASE #### [address] Bilirubin [Mass/Vol] 0.8 mg/dL Normal 0.3-1.2 [facility] Comment on above: Performed By: #### C BC, PT, PTT, HEPATIC, BMP, LIPASE #### [address] Bilirubin,Indirect 0.7 mg/dL Normal [facility] Comment on above: Performed By: #### C BC, PT, PTT, HEPATIC, BMP, LIPASE #### [address] Bilirubin.indirect [Mass/Vol] 0.1 mg/dL Normal 0.0-0.4 [facility] Comment on above: Performed By: #### C BC, PT, PTT, HEPATIC, BMP, LIPASE #### [address] Globulin (S) [Mass/Vol] 2.5 g/dL Normal [facility] Comment on above: Performed By: #### C BC, PT, PTT, HEPATIC, BMP, LIPASE #### [address] Protein [Mass/Vol] 6.5 g/dL Normal 6.1-7.9 [facility] Comment on above: Performed By: #### C BC, PT, PTT, HEPATIC, BMP, LIPASE #### [address] Lipaseon 12-28-2021 Lipase [Catalytic activity/Vol] 29.0 U/L Normal 22-51 [facility] Comment on above: Result Comment: PERF ORMED BY: [place] [address] PATHOLOGIST CAR TOP BOLTER STORMY MTZ M.D. Performed By: #### C BC, PT, PTT, HEPATIC, BMP, LIPASE #### [address] [place] [address] [place] Partial Thromboplastin Timeo n 12-28-2021 aPTT Coag (Bld) [Time] 30.4 s Normal 25.1-36.5 [facility] Comment on above: Result Comment: PERF ORMED BY: [address] [place] [address] PATHOLOGIST CAR TOP BOLTER STORMY MTZ M.D. Performed By: #### C BC, PT, PTT, HEPATIC, BMP, LIPASE #### [address] Prothrombin Time INRon 12-28 INR Coag (PPP) [Relative time] 1.0 {INR} Normal [facility] Comment on above: Result Comment: INR Therapeutic [...] BC, PT, PTT, HEPATIC, BMP, LIPASE #### [address] PT Coag (PPP) [Time] 11.8 s Normal 9.0-12.9 [facility] Comment on above: Performed By: #### C BC, PT, PTT, HEPATIC, BMP, LIPASE #### [address] Urinalysison 12-28-2021 Appearance (U) Clear Normal Clear [facility] Comment on above: Order Comment: Name Collection Type:: Clean-Voided Midstream Performed By: #### C BC, PT, PTT, HEPATIC, BMP, LIPASE #### [address] Bilirubin,Urine Negative Normal Negative [facility] Comment on above: Order Comment: Name Collection Type:: Clean-Voided Midstream Performed By: #### C BC, PT, PTT, HEPATIC, BMP, LIPASE #### [facility] [address] Color (U) Yellow Normal Yellow [facility] Comment on above: Order Comment: Name Collection Type:: Clean-Voided Midstream Performed By: #### C BC, PT, PTT, HEPATIC, BMP, LIPASE #### [address] Glucose Ql (U) Normal Normal Normal [facility] Comment on above: Order Comment: Name Collection Type:: Clean-Voided Midstream Performed By: #### C BC, PT, PTT, HEPATIC, BMP, LIPASE #### [address] Ketones Ql (U) Negative Normal Negative [facility] Comment on above: Order Comment: Name Collection Type:: Clean-Voided Midstream Performed By: #### C BC, PT, PTT, HEPATIC, BMP, LIPASE #### [address] Leukocyte esterase Test strip Ql (U) Negative Normal Negative [facility] Comment on above: Order Comment: Name Collection Type:: Clean-Voided Midstream Performed By: #### C BC, PT, PTT, HEPATIC, BMP, LIPASE #### [address] Nitrite,Urine Negative Normal Negative [facility] Comment on above: Order Comment: Name Collection Type:: Clean-Voided Midstream Performed By: #### C BC, PT, PTT, HEPATIC, BMP, LIPASE #### [address] Occult Blood,Urine Negative Normal Negative [facility] Comment on above: Order Comment: Name Collection Type:: Clean-Voided Midstream Performed By: #### C BC, PT, PTT, HEPATIC, BMP, LIPASE #### [address] pH (U) 7.5 [pH] Normal 5.0-9.0 [facility] Comment on above: Order Comment: Name Collection Type:: Clean-Voided Midstream Performed By: #### C BC, PT, PTT, HEPATIC, BMP, LIPASE #### [facility] [address] Protein,Urine Negative Normal Negative [facility] Comment on above: Order Comment: Name Collection Type:: Clean-Voided Midstream Performed By: #### C BC, PT, PTT, HEPATIC, BMP, LIPASE #### [facility] [address] Specificy [place],Urine 1.004 Normal 1.001-1.030 [facility] Comment on above: Order Comment: Name Collection Type:: Clean-Voided Midstream Performed By: #### C BC, PT, PTT, HEPATIC, BMP, LIPASE #### [address] Urobilinogen,Urine Normal Normal Normal [facility] Comment on above: Order Comment: Name Collection Type:: Clean-Voided Midstream Performed By: #### C BC, PT, PTT, HEPATIC, BMP, LIPASE #### [address] XR chest 1V portableon 12-28 XR chest 1V portable [facility] [place] [address] XRay Report Signed Patient: Lu Cancino MR#: [id number] 588 : 1970 Acct:[id number] Age/Sex: 50 / F ADM Date: 12/28/21 [...] Erasmo Brooks M.D.12/28/2021 6:18 PM Dictation Location: [place] [address] Transcribed By: [facility] 12/28/211817 Dictated By: Erasmo Brooks II, MD 12/28/211816 Signed By: 12/28/211817 Normal [facility] ANTI DNAon 04-09-2019 ANTI DNA <1:10 Normal <1:10 [facility] Comment on above: Performed By: #### 1 0097, 05515, 69734 #### [facility] [address] [place] [address], [facility] ANTI-ENAon 04-09-2019 ANTI SM Negative Normal NEG,NEGATIVE, Neg [facility] Comment on above: Performed By: #### 1 0097, 73422, 27480 #### [facility] [address] [place] [address], [facility] ANTI SM/ANTIRNP Negative Normal NEG,NEGATIVE , Neg [facility] Comment on above: Performed By: #### 1 0097, 48610, 56413 #### [facility] [address] [place] [address], [facility] C REACTIVE PROTEINon 019 CRP mass conc 8.0 mg/L High 0.0-7.0 [facility] Comment on above: Performed By: #### 6 1405 #### [facility] [address] [place] [address], [facility] CHROMATIN ANTIBODY, IGG 2005 287on 04-09-2019 CHROMATIN ANTIBODY, IGG 4 Units Normal 0-19 [facility] Comment on above: Result Comment: INTE RPRETIVE [...] when antibody levels are high. Performed by [email or web address], [address] [facility],[place] [id number] www.General Assembly, Sam Brito MD - Lab. Director CYCLIC [place]INATED PEPTIDE [place] [id number] 04-09-2019 CYCLIC CIT PEP 5 Units Normal 0-19 [facility] Comment on above: Result Comment: INTE [...] be monitored and testing repeated. Performed by [employer], [address] [facility] [place] [address] www.General Assembly, Sam Brito MD - Lab. Director SEDIMENTATION RATEon 019 SED RATE 34 mm/hr High 0-20 [facility] Comment on above: Performed By: #### [id number] #### [facility] [address] [facility] [place] [address], [facility] SJOGRENS ANTIBODIESon 2018 SS-A Negative Normal NEG,NEGATIVE, Neg [facility] Comment on above: Performed By: #### 1 [id number], [id number], [id number] #### [facility] [address] [facility] [place] [address], [facility] SS-B Negative Normal NEG,NEGATIVE, Neg [facility] Comment on above: Performed By: #### 1 0097, [id number] #### [facility] [address] [place] [address], [facility] Vital Signs Date Time Vital Sign Value Performing Clinician Facility 08-26-2023 13:10-0400 Body height 157.48 cm Selene Martinez Other [facility] Other 08-26-2023 13:10-0400 Body mass index (BMI) [Ratio] 49.01 kg/m2 Selene Martinez Other [facility] Other 08-26-2023 13:10-0400 Body temperature 97.9 [degF] Selene Changmond Other [facility] Other 08-26-2023 13:10-0400 Body weight 121.56 kg Selene Martinez Other [facility] Other 08-26-2023 13:10-0400 Diastolic blood pressure 71 mm[Hg] Selene Martinez Other [facility] Other 08-26-2023 13:10-0400 Respiratory rate 18 /min Selene Changmond Other [facility] Other 08-26-2023 13:10-0400 SaO2% (BldA) [Mass fraction] 99 % Selene Changmond Other [facility] Other 08-26-2023 13:10-0400 Systolic blood pressure 142 mm[Hg] Selene Changmond Other [facility] Other 05-31-2022 18:00-0400 Body height 157.48 cm Rose De Other [facility] Other 05-31-2022 18:00-0400 Body mass index (BMI) [Ratio] 45.72 kg/m2 Rose De Other [facility] Other 05-31-2022 18:00-0400 Body temperature 98.3 [degF] Rose De Other [facility] Other 05-31-2022 18:00-0400 Body weight 113.4 kg Rose De Other [facility] Other 05-31-2022 18:00-0400 Respiratory rate 18 /min Rose De Other [facility] Other 05-31-2022 18:00-0400 SaO2% (BldA) [Mass fraction] 95 % Rose De Other [facility] Other 09-10-2021 13:45-0400 Body height 157.48 cm Selene Michelle Other [facility] Other 09-10-2021 13:45-0400 Body mass index (BMI) [Ratio] 45.72 kg/m2 Selene Michelle Other [facility] Other 09-10-2021 13:45-0400 Body temperature 96.8 [degF] Selene Michelle Other [facility] Other 09-10-2021 13:45-0400 Body weight 113.4 kg Selene Martinez Other [facility] Other 09-10-2021 13:45-0400 Respiratory rate 18 /min Selene Martinez Other [facility] Other 09-10-2021 13:45-0400 SaO2% (BldA) [Mass fraction] 97 % Selene Martinez Other [facility] Other Encounters Encounter Date Encounter Type Care Provider Facility Start: 06-13-2024 End: 06-13-2024 ambulatory RAMONE LORENZANA Not Available Start: 05-28-2024 End: 05-28-2024 ambulatory JEREMIAH Ehsan HANSEN Not Available Start: 05-28-2024 End: 05-28-2024 ambulatory MAGDIEL AICHHOLZ Not Available Start: 05-22-2024 End: 05-22-2024 ambulatory MAGDIEL AICHHOLZ Not Available Start: 05-09-2024 End: 05-09-2024 ambulatory MAGDIEL AICHHOLZ Not Available Start: 04-01-2024 End: 04-01-2024 ambulatory RAMONE LORENZANA Not Available Start: 03-07-2024 End: 03-07-2024 ambulatory JOSH PARKINSON Not Available Start: 02-01-2024 End: 02-01-2024 ambulatory MAGDIEL AICHHOLZ Not Available Start: 01-08-2024 End: 01-08-2024 ambulatory KRISTEN BRONSON Not Available Start: 12-21-2023 End: 12-21-2023 ambulatory RAMONE LORENZANA Not Available Start: 12-20-2023 Refill Ramone valentino MD Work Phone: [facility] Comment on above: Myalgia; Numbness and tingling; Weakness Start: 12-19-2023 End: 12-19-2023 ambulatory EBEN DUQUE Not Available Start: 12-15-2023 End: 12-15-2023 Chart abstracting Kristen Bronson [facility] Work Phone: [facility] Comment on above: Bipolar II disorder, most recent episode major depressive ([facility]) Start: 12-15-2023 End: 12-15-2023 ambulatory KRISTEN BRONSON Not Available Start: 11-23-2023 End: 11-23-2023 ambulatory RAMONE LORENZANA Not Available Start: 11-02-2023 End: 11-02-2023 ambulatory RAMONE LORENZANA Not Available Start: 09-28-2023 End: 09-28-2023 ambulatory RAMONE LORENZANA Not Available Start: 08-26-2023 End: 08-26-2023 ambulatory Selene Martinez Other [employer] Other Start: 08-26-2023 Office outpatient vi sit 15 minutes Selene Martinez [facility] [place] Start: 05-23-2023 End: 05-23-2023 ambulatory FRACISCO SKAGGS [facility] Start: 04-11-2023 Letter encounter Lili black Start: 03-21-2023 End: 03-22-2023 ambulatory MICHELL MAGDIEL AICJANEY Facility:H1 Start: 01-23-2023 End: 01-23-2023 ambulatory FINISHER [employer] MAGDIEL AICRuiHOLZ Facility:H1 Start: 01-12-2023 End: 01-13-2023 ambulatory MICHELL MAGDIEL AICDANAZ Facility:H1 Start: 01-12-2023 Letter encounter Lili black Start: 08-09-2022 End: 08-10-2022 ambulatory SLADE FONG . Facility:H1 Start: 07-19-2022 End: 07-20-2022 ambulatory MICHELL MAGDIEL AICDANAZ Facility:H1 Start: 07-15-2022 End: 07-16-2022 ambulatory FINISHER BRUSH MAGDIEL AICHHOLZ Facility:H1 Start: 07-10-2022 End: 07-11-2022 ambulatory [employer]ISHER [employer] MAGDIEL AICHHOLZ Facility:H1 Start: 07-05-2022 End: 07-05-2022 Phys/qhp telephone evaluation 21-30 min Lucía Calderon APRN-[employer]ISHER [employer]USH Work Phone: [facility] Comment on above: Chest pain, unspecif ied type (Primary Dx); [id number]-86 condition Start: 07-05-2022 End: 07-08-2022 ambulatory [facility] PROVID[facility] Start: 06-30-2022 End: 07-01-2022 ambulatory MICHELL HOLT Facility:H1 Start: 06-15-2022 End: 06-16-2022 ambulatory FINISHER BRUSH MAGDIEL HOLT Facility:H1 Start: 06-04-2022 End: 06-04-2022 ambulatory MICHELL HOLT Facility:H1 Start: 05-31-2022 End: 05-31-2022 ambulatory Rose De Other [employer] Other Start: 05-31-2022 Office outpatient vi sit 25 minutes Rose De [facility] [place] Start: 05-15-2022 End: 05-15-2022 ambulatory MICHELL HOLT Facility:H1 Start: 05-04-2022 End: 05-04-2022 ambulatory ALEJANDRA LENIN . Facility: Start: 04-04-2022 Letter encounter [facility] Start: 03-24-2022 End: 03-24-2022 Phys/qhp telephone evaluation 11-20 min Lucía CARBALLOFINISHER BRUSH Work Phone: [facility] Comment on above: Shortness of breath (Primary Dx); [id number] condition Start: 12-28-2021 End: 12-28-2021 Emergency department patient visit Ricardo Ricardo Facility:[facility] Start: 09-10-2021 (URG) Urgent Care Visit Selene cui [facility] [place] Plan of Treatment Date Care Activity Detail Author Start: 12-25-2023 End: 12-25-2023 Clinical Support 12/25/2023 2:00 PM EST Clinical Support [facility] [address] [place] [id number] Kristen Bronson, [facility] [address] [place] [address] [facility] Start: 12-21-2023 End: 12-21-2023 Patient encounter procedure 12/21/2023 2:20 PM EST Office Visit [facility] [address] [place] [address] Ramone Lorenzana MD [address] [facility] [address]ndt [address] [place] [id number] [facility] Start: 12-19-2023 End: 12-19-2023 Patient encounter procedure 12/19/2023 10:00 AM EST Office Visit [facility] [address] [place] [address] Eben Duque, [facility] [address] [place] [address] [facility] Start: 12-15-2023 End: 12-15-2023 Clinical Support 12/15/2023 1:00 PM EST Clinical Support [facility] [address] [place] [id number] Kristen Bronson, [facility] [address] [place] [address] [facility] Start: 07-14-2023 Influenza vaccination Influenza Vaccine (#1) [facility] Start: 08-13-2022 Influenza vaccination Influenza Vaccine (#1) [facility] Start: 07-05-2022 End: 07-05-2022 Telemedicine consultation with patient 07/05/2022 Telemedicine Rheumatology Lucía Calderon, BESS-[facility] [address] [place] [address] [facility] Start: 2019 Measurement of occult blood in single stool specimen [facility] Start: 2019 Screening for malignant neoplasm of breast Mammography [facility] Start: 2019 Screening for malignant neoplasm of colon CRC Screening [facility] Start: 2019 Shingles (RZV) Vaccine (1 of 2) Shingles (RZV) Vaccine (1 of 2) [facility] Start: 2014 Cholesterol [Mass/volume] in Serum or Plasma [facility] Start: 2014 Screening for malignant neoplasm of colon [facility] Start: 2009 Screening for malignant neoplasm of breast [facility] Start: 1999 Screening for malignant neoplasm of cervix [facility] Start: 1990 Screening for malignant neoplasm of [...] 06-28-1970 COVID-19 Vaccine (#1) COVID-19 Vaccine (#1) [facility] Start: 1969 Screening for malignant neoplasm of colon [facility] Payers Date Payer Category Payer Self-pay 2019 Medicaid [id number] 1969 Unknown [id number] 2.16.84 0.1.271237.3.579.2.593 1969 Unknown [id number] 2.16.84 0.1.488641.3.579.2.593 1969 Unknown [id number] 2.16.84 0.1.913616.3.579.2.593 1969 Unknown [id number] 2.16.84 0.1.931347.3.579.2.593 1969 Unknown [id number] 2.16.84 0.1.120348.3.579.2.593 1969 Unknown [id number] 2.16.84 0.1.385551.3.579.2.593 1969 Unknown [id number] 2.16.84 0.1.025084.3.579.2.593 1969 Unknown [id number] 2.16.84 0.1.099965.3.579.2.593 1969 Unknown [id number] .16.84 0.1.116428.3.579.2.593 1969 Unknown [id number] 2.16.84 0.1.101498.3.579.2.593 1969 Unknown [id number] .16.84 0.1.498340.3.579.2.593 1969 Unknown [id number] .16.84 0.1.297943.3.579.2.593 1969 Unknown [id number] .16. 840.1.154985.3.579.2.732 1969 Unknown [id number] .16.84 0.1.441874.3.579.2.1259 1969 Unknown [id number] .16.84 0.1.763410.3.579.2.1259 1969 Unknown [id number] .16.84 0.1.263203.3.579.2.1259 1969 Unknown [id number] .16.84 0.1.590153.3.579.2.1259 1969 Unknown [id number] .16.84 0.1.851031.3.579.2.1259 1969 Unknown [id number] .16.84 0.1.303828.3.579.2.1259 1969 Unknown [id number] .16.84 0.1.836748.3.579.2.1259 1969 Unknown [id number] .16.84 0.1.822781.3.579.2.1259 1969 Unknown [id number] .16.84 0.1.351380.3.579.2.1259 1969 Unknown [id number] .16.84 0.1.277924.3.579.2.1259 1969 Unknown [id number] 2.16.84 0.1.883662.3.579.2.9 1969 Unknown [id number] 2.16.84 0.1.883289.3.579.2.9 1969 Unknown [id number] 2.16.84 0.1.062497.3.579.2.9 1969 Unknown [id number] 2.16.84 0.1.638062.3.579.2.9 1969 Unknown [id number] 2.16.84 0.1.677930.3.579.2.9 1969 Unknown [id number] 2.16.840 .1.803780.3.579.2.9 1969 Unknown [id number] 2.16.840 .1.298292.3.579.2.1259 1959 Unknown [id number] 2.1 6.840.1.714564.19 1959 Unknown [id number] Unknown [id number] 2.16.8 40.1.098141.3.579.2.531 Social History Date Type Detail Facility Start: 01-10-2022 End: 07-27-2023 Tobacco smoking status MNIS Never smoked tobacco [facility] Other Start: 01-10-2022 End: 07-27-2023 Tobacco use and exposure Smokeless tobacco non-user [facility] Start: 03-24-2022 End: 07-05-2022 Alcohol intake Ex-drinker (finding) [facility] Start: 1970 Sex Assigned At Not on file [facility] Start: 11-24-2023 End: 12-21-2023 Sex Assigned At [facility] [employer] Other Start: 11-28-2023 End: 12-19-2023 Alcohol intake Lifetime non-drinker (finding) [facility] Start: 11-24-2023 End: 12-21-2023 History of Social function [facility] Start: 12-19-2023 Alcohol Comment caffiene- 3 cu ps either coffee, tea or pop [facility] Clinical Notes 09-10-2021 to 12-15-2023 Kristen Bronson, [facility] - 12/15/2023 1:00 PM EST Note [...] and exhibiting a general state of irritability. 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 documented in this encounter [facility] 08-26-2023 Evaluation note Encounter Date Diagnosis Assessment Notes Aug, Left sided sciatica (ICD-10 - M54.32) Drink plenty fluids, get plenty of rest. Continue home medications as prescribed. Take the prednisone as prescribed until gone. Limit your lifting and bending for the next few days. Follow-up with your family physician next week for recheck. [facility] Other 07-11-2023 NoteSubjective Patient ID: Lu Cancino [...] she was taking vitamin supplementation and Body [place] energy drinks, but that she had been [...] in about 6 months (around 11/23/2023). Radha Reye, [id number] History of Present illness Narrative* Lucía Calderon APRN-CNP - 07/05/2022 1:13 PM EDT Images from the original note were not included. Documentation: Mode: Telephone Patient Patient Work Phone: Patient Cell Preferred phone: [phone] Consent: I confirmed patient understanding of the risks and benefits of telehealth visits and obtained consent to proceed with the telehealth visit. Location of Patient: Home of patient Post Covid Follow Up Telemedicine Visit Note: CC: f/u of Ieau-JQLRH-77 condition Recall: Lu Cancino is a 51 [...] Also has neuropathy Patient still resides near [place], [place] PMH/PSH: Reviewed 07/05/22 Allergies: Per list, [...] Post Covid Nurse Practitioner documented in this [id number] Evaluation note* Encounter Date Diagnosis Assessment Notes [...] understanding and is agreeable to treatment plan [facility] Other 05-12-2022 History of Present illness Narrative* Lucía Calderon APRN-CNP - 03/24/2022 10:03 AM EDT Images from the original note were not included. Documentation: Mode: Telephone Patient Patient Work Phone: Patient Cell Preferred phone: [phone] Consent: I confirmed patient understanding of the risks and benefits of telehealth visits and obtained consent to proceed with the telehealth visit. Location of Patient: Home of patient Post Covid Follow Up Telemedicine Visit Note: CC: f/u of Qjkm-ZMGRR-03 condition Recall: Lu Cancino is a 51 [...] Post Covid Nurse Practitioner documented in this [id number] Evaluation note* Encounter Date Diagnosis Assessment Notes [...] Patient care instructions given in writting by [facility] Care At Home document. Additional time spent conducting pre-visit phone call, screening for symptoms, instructions on social distancing, application and removal of PPE, and cleaning of examination room, equipment and supplies was preformed. Patient education given for testing methodology and results. Patient care instructions given in writting by [facility] Care At Home document. [facility] Other Evaluation note* Diagnosis Shortness of breath- Primary Ubac-[id number]-36 condition [facility] Diagnosis Chest pain, unspecified type- Primary Zhlw-[id number]-23 condition [facility]* Diagnosis Myalgia Unspecified myalgia and myositis Numbness and tingling Disturbance of skin sensation Weakness Other malaise and fatigue [facility]* Diagnosis Bipolar II disorder, most recent episode major depressive ([facility]) Other bipolar disorders documented in this encounter [facility] Narrative - Reported* Type Description Date Medical History Seasonal Allergies Medical History rheumatoid arthritis Surgical History C section X2 Hospitalization History see above [facility] Other History general Narrative - Reported* Type Description Date Medical History Seasonal Allergies Medical History rheumatoid arthritis Medical History neuropathy Surgical History C section X2 Hospitalization History Covid 2021 [facility] Other Summary Purpose Family History No Family [...] section and content) DATE CREATED AUTHOR 04/18/2019 [facility] DATE CREATED AUTHOR AUTHOR'S ORGANIZ ATION 12/17/2022 [facility] DATE CREATED AUTHOR AUTHOR'S ORGANIZ ATION 03/24/2023 [facility] DATE CREATED AUTHOR AUTHOR'S ORGANIZ ATION 04/21/2023 [facility] DATE CREATED AUTHOR AUTHOR'S ORGANIZ ATION 05/25/2023 [facility] DATE CREATED AUTHOR AUTHOR'S ORGANIZ ATION 06/16/2024 [facility] EPIC Reason for Visit (unrecogniz [...] BE BASED ON THE PRIMARY CLINICAL RECORDS. [facility], [facility]. provides no warranty or guarantee of the accuracy or completeness of information in this document.
[2024-06-16 10:20] VITALS: O2SAT 98
[2024-06-16] MEDS: BUPIVACAINE HCL 0.5% PF 50 MG/10 ML VIAL INJ (10:22)
--- NOTE | 2024-06-16 10:24 | ED_ITS ---
HPI - Dental/Oral General Chief complaint: Dental/Oral Stated complaint: TOOTH PAIN/MOUTH PAIN Time Seen by Provider: 06/16/24 10:04 Source: patient Mode of arrival: walk-in History of Present Illness HPI Narrative: Patient presents to ED complaining of dental pain. She has a history of dental caries. She has a dentist and needs an oral surgeon to get some teeth pulled but she has not been able to find one that is accepting new patients at this time. She presented today because she just wants a dental block for pain relief. She is on naltrexone and states she does not want any other pain medication at this time and just wants a numbing shot to put in. No fevers no abscess no drooling no tongue elevation. She reports the pains been getting in the way of her working So she thought this might help. Alert and oriented no acute distress Teeth map: 2 1. 2. pain, dental caries no abscess Related Data Home Medications ?Medication ?Instructions ?Recorded ?Confirmed fluoxetine 40 mg capsule 40 mg PO DAILY 05/15/23 06/16/24 furosemide 20 mg tablet 10 mg PO DAILY 05/15/23 06/16/24 gabapentin 100 mg capsule 100 mg PO QPM 05/15/23 06/16/24 nabumetone 500 mg tablet 500 mg PO BID 05/15/23 06/16/24 pantoprazole 40 mg tablet,delayed 40 mg PO DAILY 05/15/23 06/16/24 release biotin 10,000 mcg capsule 10,000 mcg PO BID 06/16/24 06/16/24 magnesium oxide 400 mg (241.3 mg 400 mg PO QPM 06/16/24 06/16/24 magnesium) tablet modafinil 100 mg tablet (Provigil) 100 mg PO DAILY 06/16/24 06/16/24 montelukast 10 mg tablet 10 mg PO QPM 06/16/24 06/16/24 naltrexone 1.5 mg capsule mg PO 06/16/24 Allergies Allergy/AdvReac Type Severity Reaction Status Date / Time influenza A (H1N1) virus AdvReac Mild Verified 05/15/23 14:44 vaccine m-chani-split 2008 [From influenza A (H1N1)] Tetanus Vaccines and Toxoid AdvReac Mild Verified 05/15/23 14:44 Review of Systems 2 ROS0 Status of ROS 10 or more systems reviewed and unremark able except as noted in history and below PFSH [facility] Social History Smoking status: Never smoker Exam Narrative Exam Narrative: General: alert, no acute distress Cardiovascular: regular rate and rhythm, normal peripheral perfusion. Respiratory: Lungs CTA, respirations non labored. Extremities: no deformity, no trauma. Neurological: oriented x 4, LOC appropriate for age. Patient has multiple dental caries. Pain in the right upper teeth. 1, 2 and 3. No abscess no drooling no tongue elevation. Constitutional Vital Signs, click to edit/add: Last Vital Signs Temp 98.5 F 06/16/24 10:03 Pulse 77 06/16/24 10:03 Resp 18 06/16/24 10:03 BP 152/78 H 06/16/24 10:03 Pulse Ox 98 06/16/24 10:20 O2 Del Method Room Air 06/16/24 10:20 Course Vital Signs Vital signs: Vital Signs Temperature 98.5 F 06/16/24 10:03 Pulse Rate 77 06/16/24 10:03 Respiratory Rate 18 06/16/24 10:03 Blood Pressure 152/78 H 06/16/24 10:03 Pulse Oximetry 98 06/16/24 10:03 Oxygen Delivery Method Room Air 06/16/24 10:03 Temperature 98.5 F 06/16/24 10:03 Pulse Rate 77 06/16/24 10:03 Respiratory Rate 18 06/16/24 10:03 Blood Pressure 152/78 H 06/16/24 10:03 Pulse Oximetry 98 06/16/24 10:20 Oxygen Delivery Method Room Air 06/16/24 10:20 MDM - Dental/Oral MDM Narrative Medical decision making narrative: Dental block performed. Patient feeling much better. Follow-up with dentist as scheduled, return to ED if worsening symptoms. Patient comfortable care plan for home. Differential Diagnosis Differential diagnosis: Likely gingival abscess, dental caries, toothache, dental abscess and fracture of tooth Smoking Cessation Time spent discussing smoking cessation with patient: 3 to 10 minutes Patient Acknowledges Need for Cessation: Yes Discharge Plan Discharge Stand Alone Forms: Portal Instructions Chief Complaint: Dental/Oral Clinical Impression: Toothache, Dental caries Patient Disposition: Home, Self-Care Time of Disposition Decision: 10:23 Condition: Good Mode of Transportation: Private Vehicle Prescriptions / Home Meds: No Action fluoxetine 40 mg capsule 40 mg PO DAILY pantoprazole 40 mg tablet,delayed release (DR/EC) 40 mg PO DAILY furosemide 20 mg tablet 10 mg PO DAILY gabapentin 100 mg capsule 100 mg PO QPM nabumetone 500 mg tablet 500 mg PO BID modafinil [Provigil] 100 mg tablet 100 mg PO DAILY magnesium oxide 400 mg (241.3 mg magnesium) tablet 400 mg PO QPM montelukast 10 mg tablet 10 mg PO QPM biotin 10,000 mcg capsule 10,000 mcg PO BID naltrexone 1.5 mg capsule PO Print Language: Palestinian Instructions: Toothache (ED) Referrals: Melani Deras NP [Primary Care Provider] - 1 week Procedures ED Procedure Instructions Procedures Procedures: Approximately 2-1/2 mL of bupivacaine was injected into the area of the gums and posteriorly for a dental block. Patient states that she had relief of pain and tolerated the injections well.
== END 2024-06-16 10:26 | disposition home or self-care (01) ==
PROVIDERS: Emergency Provider Emergency Medicine; PCP Nurse Practitioner
DX: K02.9 Dental caries, unspecified (principal); K08.89 Other specified disorders of teeth and supporting structures
CPT/HCPCS: 64450; 99284; J0665

== ENCOUNTER 2024-07-10 19:56 | Outpatient (REF) | payer OTHER, SELFPAY ==
--- OUTSIDE RECORDS SUMMARY | 2024-07-10 20:07 | XMS_ITS | CCD ---
Author Organization [facility] CliniSyms Care Team Providers Care Hvac Specialist Name Role Phone Unavailable Primary Care Provider UnavailSelene Garrison Unavailable Rose De Unavailable Unavailable Primary Care Provider UnavailRicardo Sands Attending Unavailable Ricardo Ricardo Admitting Unavailable Mahesh Rocha Primary Care Unavailable Unavailable Primary Care Provider Unavailcolby e AICHHOLZ, THERAPEUTIC RADIOLOGIST MAGDIEL Primary Care Unavailable AICHHOLZ, THERAPEUTIC RADIOLOGIST MAGDIEL Attending Unavailable AICHHOLZ, THERAPEUTIC RADIOLOGIST MAGDIEL Admitting Unavailable AICHHOLZ, THERAPEUTIC RADIOLOGIST MAGDIEL Consulting Unavailable AICHHOLZ, THERAPEUTIC RADIOLOGIST MADGIEL Consulting Unavailable AICHHOLZ, THERAPEUTIC RADIOLOGIST MAGDIEL Attending Unavailable AICHHOLZ, THERAPEUTIC RADIOLOGIST MAGDIEL Admitting Unavailable AICHHOLZ, THERAPEUTIC RADIOLOGIST MAGDIEL Primary Care Unavailable AICHHOLZ, THERAPEUTIC RADIOLOGIST MAGDIEL Primary Care Unavailable LEES ., DR RADHA Last Attending Unavailable LEES ., DR RADHA Last Admitting Unavailable LEES ., DR RADHA Last Consulting Unavailable MARCOS NEWBRERY Consulting Unavailable SERAFIN, MAGDIEL Consulting Unavailable VANESSA MARTINEZ Unavailable AICHHOLZ, THERAPEUTIC RADIOLOGIST MAGDIEL Admitting Unavailable AICHHOLZ, THERAPEUTIC RADIOLOGIST MAGDIEL Primary Care Unavailable AICHHOLZ, THERAPEUTIC RADIOLOGIST MAGDIEL Attending Unavailable DR VANESSA PRESLEY V Consulting Unavailable AICHHOLZ, THERAPEUTIC RADIOLOGIST MAGDIEL Consulting Unavailable AICHHOLZ, THERAPEUTIC RADIOLOGIST MAGDIEL Admitting Unavailable AICHHOLZ, THERAPEUTIC RADIOLOGIST MAGDIEL Primary Care Unavailable AICHHOLZ, THERAPEUTIC RADIOLOGIST MAGDIEL Consulting Unavailable AICHHOLZ, THERAPEUTIC RADIOLOGIST MAGDIEL Attending Unavailable AICHHOLZ, THERAPEUTIC RADIOLOGIST MAGDIEL Attending Unavailable AICHHOLZ, THERAPEUTIC RADIOLOGIST MAGDIEL Admitting Unavailable DR VANESSA PRESLEY V Consulting Unavailable AICHHOLZ, THERAPEUTIC RADIOLOGIST MAGDIEL Primary Care Unavailable AICHHOLZ, THERAPEUTIC RADIOLOGIST MAGDIEL Consulting Unavailable AICHHOLZ, THERAPEUTIC RADIOLOGIST MAGDIEL Admitting Unavailable AICHHOLZ, THERAPEUTIC RADIOLOGIST MAGDIEL Consulting Unavailable AICHHOLZ, THERAPEUTIC RADIOLOGIST MAGDIEL Attending Unavailable AICHHOLZ, THERAPEUTIC RADIOLOGIST MAGDIEL Primary Care Unavailable SAMSA ., SLADE Attending Unavailable SAMSA ., SLADE Admitting Unavailable AICHHOLZ, THERAPEUTIC RADIOLOGIST MAGDIEL Primary Care Unavailable DR PASTOR ESPANA Consulting Unavailable SAMSA ., SLADE Consulting Unavailable AICHHOLZ, THERAPEUTIC RADIOLOGIST MAGDIEL Admitting Unavailable AICHHOLZ, THERAPEUTIC RADIOLOGIST MAGDIEL Consulting Unavailable AICHHOLZ, THERAPEUTIC RADIOLOGIST MAGDIEL Attending Unavailable AICHHOLZ, THERAPEUTIC RADIOLOGIST MAGDIEL Primary Care Unavailable AICHHOLZ, THERAPEUTIC RADIOLOGIST MAGDIEL Primary Care Unavailable PAY ., DR BECK Attending Unavailable PAY ., DR BECK Admitting Unavailable PAY ., DR BECK Consulting Unavailable GRECHNY ., KARTHIKEYAN KLINE Consulting Unavailabl e AICHHOLZ, THERAPEUTIC RADIOLOGIST MAGDIEL Primary Care Unavailable ANTONIA ., KARTHIKEYAN KLINE Consulting Unavailabl e LENIN ., ALEJANDRA Attending Unavailable LENIN ., ALEJANDRA Admitting Unavailable LENIN ., ALEJANDRA Admitting Unavailable AICHHOLZ, THERAPEUTIC RADIOLOGIST MAGDIEL Primary Care Unavailable MARCOS NEWBERRY Unavailable LENIN ., ALEJANDRA Attending Unavailable LENIN ., ALEJANDRA Consulting Unavailable PROVIDER, UNKNOWN Attending Unavailable PROVIDER, UNKNOWN Admitting Unavailable PATIENT, SELF Referring Unavailable FRACISCO SKAGGS Attending Unavailable Unavailable Primary Care Provider Unavailabl EDDY Chandler Attending Unavailable KRISTEN BRONSON Attending Unavailable EBEN DUQUE Attending Unavailab le AICHHOLZ, MAGDIEL Referring Unavailable EDDY LORENZANA Attending Unavailable KRISTEN BRONSON Attending Unavailable AICHHOLZ, MAGDIEL Attending Unavailable JOSH PARKINSON Attending Unavailable EDDY LORENZANA Attending Unavailable AICHHOLZ, MAGDIEL Attending Unavailable AICHHOLZ, MAGDIEL Attending Unavailable AICHHOLZ, MAGDIEL Referring Unavailable JEREMIAH HANSEN Attending Unavailable JEREMIAH HANSEN Referring Unavailable EDDY LORENZANA Attending Unavailable EDDY LORENZANA Attending Unavailable EDDY LORENZANA Attending Unavailable EDDY LORENZANA Referring Unavailable Allergies Allergy Classification Reported Allergen(s) Allergy Type Date of Onset Reaction(s) Facility (11 sources) Tetanus vaccine; Translations: [TETANUS TOXOIDS] Propensity to adverse reactions to drug 2 Asthma [facility] Work Phone: (1 source) Allopurinol Drug Allergy 3 [facility] Repository (1 source) TETANUS AND DIPHTHERIA TOXOIDS; Translations: [TETANUS AND DIPHTHERIA TOXOIDS] Propensity to adverse reactions to drug (disorder) 2 [facility] Repository Medications Current Medications Medication Drug Class(es) Dates Sig (Normalized) Sig (Original) [id number] 200 actuat albuterol 0.09 mg/actuat metered dose [...] aspirin 81 mg delayed release oral tablet (6 sources) Platelet Aggregation Inhibitor, Nonsteroidal Anti-inflammatory Drug take 1 tablet by mouth once daily aspirin 81 MG enteric coated tablet Take 81 mg by mouth daily. Active Benadryl Allergy (2 sources) Benadryl Allergy [...] Active cetirizine hydrochloride 10 mg oral tablet (11 sources) Histamine-1 Receptor Antagonist take 1 tablet by mouth once daily cetirizine (ZyrTEC) 10 MG tablet Take 10 mg by mouth daily. Active ZyrTEC Allergy A ctive cholecalciferol 0.025 mg oral capsule (1 source) Vitamin D take 1 capsule by mouth once daily cholecalciferol (Vitamin D-3) 25 MCG (1000 UT) capsule Take 1 capsule every day by oral route. 0 Active cyproheptadine hydrochloride 4 mg oral tablet (1 source) Start: End: 024 take 0.5 tablet by mouth in the [...] by mouth in the morning. 0 Active [id number] 0.3 ml EPINEPHrine 1 mg/ml auto-injector (4 sources) alpha-Adrenergic Agonist, beta-Adrenergic Agonist, Catecholamine EPINEPHrine (Epipen) 0.3 MG/0.3ML injection syringe Inject 1 Syringe as directed 1 (one) time Inject into upper leg. Call 911 after use. 0 Active FLUoxetine 20 mg oral capsule (12 sources) Serotonin Reuptake Inhibitor take 1 capsule by mouth once daily fluoxetine (PROZAC) 20 MG capsule Take 20 mg by mouth daily. Active take 1 capsule by mouth in the [facility] FLUoxetine (PROzac) 40 MG capsule Indications: Depressive Phase Bipolar Mood Disorder Take 40 mg by mouth in the morning. 0 Active PROzac Active furosemide 20 mg oral tablet (6 sources) Loop Diuretic take 1 tablet by mouth once daily as needed furosemide (Lasix) 20 MG tablet Indications: Hypertension Take 20 mg by mouth Daily as needed 0 Active [facility]Las[facility]) 10 MG/ML solution Indications: Hypertension [...] hydrochloride 500 mg extended release oral tablet (13 sources) Biguanide take 1 tablet by mouth once daily metformin (GLUCOPHAGE-XR) 500 MG XR tablet Take 500 mg by mouth daily. Active take 1 tablet by beth th every twenty-four hours in the morning metFORMIN XR (Glucophage-XR) 500 MG 24 h r tablet Take 500 mg by mouth in the morning. 0 Active metFORMIN HCl Ac tive nabumetone 500 mg oral tablet (13 sources) Nonsteroidal Anti-inflammatory Drug Start: 12-11-2023 End: 01-10-2024 take 1 tablet by mouth twice daily as needed for pain nabumetone (Relafen) 500 MG tablet Indications: Other chronic pain Take 1 tablet (500 mg) by mouth 2 (two) times a day as needed for moderate pain 60 tablet 1 12/11/2023 01/10/2024 Active Nabumetone Activ e Nabumetone Not-T aking Naltrexone (4 sources) Opioid Antagonist Start: 12-06-2023 End: 01-05-2024 Naltrexone HCl powder Indications: Idiopathic progressive neuropathy , Weakness 3 mg at bedtime 30 g 11 12/06/2023 01/05/2024 Active nystatin 201417 unt/ml oral suspension (1 source) Polyene Antifungal Start: 05-31-2022 take 4 mL by mouth four times daily Nystatin [id number] UNIT/ML 4 ml swish and spit Mouth/Throat Four times a day for 14 days May, Active pantoprazole 40 mg delayed release oral tablet (13 sources) Proton Pump Inhibitor take 1 tablet by mouth once daily pantoprazole (PROTONIX) 40 MG tablet Take 40 mg by mouth daily. 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) use of oral hypoglycemic drugs; Translations: [CAR REPAIRER USE ORAL HYPOGLYCEMIC DX] Onset: 01-25-2023 Episodic Other connective tissue disease (5 sources) Muscle pain; Translations: [Myalgia, unspecified site] Onset: 09-28-2023 09-28-2023 Episodic Other connective tissue disease (1 source) Cramp; Translations: [Cramp and spasm] Onset: 12-21-2023 12-21-2023 Episodic Other infections; including parasitic (2 sources) Post-viral disorder; 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 THE [employer] GUIDELINES RECOMMEND THAT WOMEN 40 [...] MD Normal Not Available Follow-Upon 05-23-2023 Follow-Up [id number] Lu Cancino 1970 F Date Provider Department Center 05/23/2023 [facility] FRACISCO Alvarez [facility] RHEUM Joselito Heal Family History Family history unknown: Yes Level of Service:64084 NM OFFICE/OUTPATIENT ESTABLISHED MOD MDM 30-39 MIN Reason for Visit and Comments: Follow-up [693084] - Flare up Normal [facility] XR KUB 1 VIEWon 03-22-2023 XR [...] VANESSA PRESLEY Date: 2023-03-22 07:45 Normal [facility] UA RANDOM W/MICROSCOPICon BACTERIA TRACE Abnormal NONE SEEN [facility] Comment on above: Performed By: #### U AMIC #### [facility] [address] [place] [address] Dr. Bertram Paulino Bilirubin Ql (U) Negative Normal NEGATIVE [facility] Comment on above: Performed By: #### U AMIC #### [facility] [address] [address] [address] Bertram Paulino CAST NONE SEEN Normal NONE SEEN [facility] Comment on above: Performed By: #### U AMIC #### [facility] [address] [place] [address] Dr. Bertram Paulino Clarity (U) CLEAR Normal CLEAR [facility] Comment on above: Performed By: #### U AMIC #### [facility] [address] [address] [address] Bertram Paulino Color (U) LT. YELLOW Normal YELLOW [facility] Comment on above: Performed By: #### U AMIC #### [facility] [address] [address] [address] Bertram Paulino Crystals LM Nom (Urine sed) NONE SEEN Normal NONE SEEN [facility] Comment on above: Performed By: #### U AMIC #### [facility] [address] [address] [address] Bertram Paulino Epithelial cells LM Ql (Urine sed) RARE Normal NONE SEEN /RARE [facility] Comment on above: Performed By: #### U AMIC #### [facility] [address] [address] [address] Bertram Paulino Glucose Ql (U) Negative Normal NEGATIVE [facility] Comment on above: Performed By: #### U AMIC #### [facility] [address] [place] [address] Dr. Bertram Paulino Hemoglobin Ql (U) Negative Normal NEGATIVE [facility] Comment on above: Performed By: #### U AMIC #### [facility] [address] [address] [address] Bertram Paulino Ketones Ql (U) Negative Normal NEGATIVE [facility] Comment on above: Performed By: #### U AMIC #### [facility] [address] [address] [address] eBrtram Paulino LEUKOCYTES Negative Normal NEGATIVE [facility] Comment on above: Performed By: #### U AMIC #### [facility] [address] [address] [address] Bertram Paulino MUCOUS NONE SEEN Normal NONE SEEN [facility] Comment on above: Performed By: #### U AMIC #### [facility] [address] [address] [address] Bertram Paulino Nitrite Ql (U) Negative Normal NEGATIVE [facility] Comment on above: Performed By: #### U AMIC #### [facility] [address] [address] [address] Bertram Paulino pH (U) 8.5 [pH] Normal 5-9 [facility] Comment on above: Performed By: #### U AMIC #### [facility] [address] [address] [address] Bertram Paulino RBC 0-2 Normal 0-2 [facility] Comment on above: Performed By: #### U AMIC #### [facility] [address] [address] [address] Bertram Paulino SPEC GRAVITY 1.015 Normal 1.005-<=1.025 [place] Comment on above: Performed By: #### U AMIC #### [facility] [address] [address] [address] Bertram Paulino UA PROTEIN Negative Normal NEGATIVE/ TRACE [facility] Comment on above: Performed By: #### U AMIC #### [facility] [address] [place] [address] Dr. Bertram Paulino Urobilinogen Qn (U) 0.2 {Yazmin'U}/dL Normal 0.2 - 1. 0 [facility] Comment on above: Performed By: #### U AMIC #### [facility] [address] [place] [address] Dr. Bertram Paulino WBC NONE SEEN Normal NONE SEEN [facility] Comment on above: Performed By: #### U AMIC #### [facility] [address] [place] [address] Dr. Bertram Paulino CBC AUTO DIFFon 01-23-2023 BASO # 0.0 103/ul Normal 0.0-0.1 [facility] Comment on above: Performed By: #### C MP, LIPID, TSH #### [facility] [address] [place] [address] Dr. Bertram Paulino Basophils/100 WBC (Bld) 0.5 % Normal 0.2-2.0 [facility] Comment on above: Performed By: #### C MP, LIPID, TSH #### [facility] [address] [place] [address] Dr. Bertram Paulino EO # 0.1 103/ul Normal 0.0-0.7 [facility] Comment on above: Performed By: #### C MP, LIPID, TSH #### [facility] [address] [place] [address] Dr. Bertram Paulino Eosinophils/100 WBC (Bld) 1.2 % Normal 0.9-7.0 [facility] Comment on above: Performed By: #### C MP, LIPID, TSH #### [facility] [address] [place] [address] Dr. Bertram Paulino Erythrocyte distribution width (RBC) [Ratio] 12.8 % Normal 11.0-15.0 [facility] Comment on above: Performed By: #### C MP, LIPID, TSH #### [facility] [address] [place] [address] Dr. Bertram Paulino Hematocrit (Bld) [Volume fraction] 38.9 % Normal 36.0-48.0 [facility] Comment on above: Performed By: #### C MP, LIPID, TSH #### [facility] [address] [place] [address] Dr. Bertram Paulino Hemoglobin (Bld) [Mass/Vol] 13.3 g/dL Normal 12.0-16.0 [facility] Comment on above: Performed By: #### C MP, LIPID, TSH #### [facility] [address] [place] [address] Dr. Bertram Paulino IG # 0.04 10e3/ul Critically high 0.00-0.03 [facility] Comment on above: Performed By: #### C MP, LIPID, TSH #### [facility] [address] [place] [address] Dr. Bertram Paulino IG % 0.5 % Normal 0.0-0.5 [facility] Comment on above: Performed By: #### C MP, LIPID, TSH #### [facility] [address] [place] [address] Dr. Bertram Paulino LYMPH # 1.9 103/ul Normal 1.2-3.8 [facility] Comment on above: Performed By: #### C MP, LIPID, TSH #### [facility] [address] [place] [address] Dr. Bertram Paulino Lymphocytes/100 WBC (Bld) 24.7 % Normal 20.5-60.0 [facility] Comment on above: Performed By: #### C MP, LIPID, TSH #### [facility] [address] [place] [address] Dr. Bertram Paulino MANUAL DIFF REQ NO Normal [place] Comment on above: Performed By: #### C MP, LIPID, TSH #### [facility] [address] [place] [address] Dr. Bertram Paulino MCH (RBC) [Entitic mass] 30.0 pg Normal 26.7-34.0 [facility] Comment on above: Performed By: #### C MP, LIPID, TSH #### [facility] [address] [place] [address] Dr. Bertram Paulino MCHC (RBC) [Mass/Vol] 34.2 g/dL Normal 29.9-35.2 [facility] Comment on above: Performed By: #### C MP, LIPID, TSH #### [facility] [address] [place] [address] Dr. Bertram Paulino MCV (RBC) [Entitic vol] 87.6 fL Normal 81.0-99.0 [facility] Comment on above: Performed By: #### C MP, LIPID, TSH #### [facility] [address] [place] [address] Dr. Bertram Paulino MONO # 0.4 103/ul Normal 0.3-0.8 [facility] Comment on above: Performed By: #### C MP, LIPID, TSH #### [facility] [address] [place] [address] Dr. Bertram Paulino Monocytes/100 WBC (Bld) 5.3 % Normal 1.7-12.0 [facility] Comment on above: Performed By: #### C MP, LIPID, TSH #### [facility] [address] [place] [address] Dr. Bertram Paulino NEUT # 5.1 103/ul Normal 1.4-6.5 [facility] Comment on above: Performed By: #### C MP, LIPID, TSH #### [facility] [address] [place] [address] Dr. Bertram Paulino Neutrophils/100 WBC (Bld) 67.8 % Normal 43.0-75.0 [facility] Comment on above: Performed By: #### C MP, LIPID, TSH #### [facility] [address] [place] [address] Dr. Bertram Paulino Platelet mean volume (Bld) [Entitic vol] 10.7 fL Normal 9.5-13.5 [facility] Comment on above: Performed By: #### C MP, LIPID, TSH #### [facility] [address] [place] [address] Dr. Bertram Paulino PLT 270 103/ul Normal 150-450 [facility] Comment on above: Performed By: #### C MP, LIPID, TSH #### [facility] [address] [place] [address] Dr. Bertram Paulino RBC 4.44 106/ul Normal 4.20-5.40 [facility] Comment on above: Performed By: #### C MP, LIPID, TSH #### [facility] [address] [place] [address] Dr. Bertram Paulino WBC 7.5 103/ul Normal 4.0-11.0 [facility] Comment on above: Performed By: #### C MP, LIPID, TSH #### [facility] [address] [place] [address] Dr. Bertram Paulino ER URINE PROFILEon 3 Bilirubin Ql (U) Negative Normal NEGATIVE [facility] Comment on above: Performed By: #### C MP, LIPID, TSH #### [facility] [address] [place] [address] Dr. Bertram Paulino Clarity (U) CLEAR Normal CLEAR [facility] Comment on above: Performed By: #### C MP, LIPID, TSH #### [facility] [address] [place] [address] Dr. Bertram Paulino Color (U) LT. YELLOW Normal YELLOW [facility] Comment on above: Performed By: #### C MP, LIPID, TSH #### [facility] [address] [place] [address] Dr. Bertram ETIENNE A micrscopic examination will be performed if indicated. Normal [facility] Comment on above: Performed By: #### C MP, LIPID, TSH #### [facility] [address] [address] [address] Bertram Paulino Glucose Ql (U) Negative Normal NEGATIVE [facility] Comment on above: Performed By: #### C MP, LIPID, TSH #### [facility] [address] [address] [address] Bertram Paulino Hemoglobin Ql (U) Negative Normal NEGATIVE [facility] Comment on above: Performed By: #### C MP, LIPID, TSH #### [facility] [address] [address] [address] Bertram Paulino Ketones Ql (U) Negative Normal NEGATIVE [facility] Comment on above: Performed By: #### C MP, LIPID, TSH #### [facility] [address] [place] [address] Dr. Bertram Paulino LEUKOCYTES Negative Normal NEGATIVE [facility] Comment on above: Performed By: #### C MP, LIPID, TSH #### [facility] [address] [address] [address] Bertram Paulino Nitrite Ql (U) Negative Normal NEGATIVE [facility] Comment on above: Performed By: #### C MP, LIPID, TSH #### [facility] [address] [place] [address] Dr. Bertram Paulino pH (U) 7.0 [pH] Normal 5-9 [facility] Comment on above: Performed By: #### C MP, LIPID, TSH #### [facility] [address] [address] [address] Bertram Paulino SPEC GRAVITY <=1.005 Abnormal 1.005-<=1.025 [place] Comment on above: Performed By: #### C MP, LIPID, TSH #### [facility] [address] [address] [address] Bertram Paulino UA PROTEIN Negative Normal NEGATIVE/ TRACE [facility] Comment on above: Performed By: #### C MP, LIPID, TSH #### [facility] [address] [address] [address] Bertram Paulino UR MICRO IND NOT INDICATED Normal [facility] Comment on above: Performed By: #### C MP, LIPID, TSH #### [facility] [address] [place] [address] Dr. Bertram Paulino Urobilinogen Qn (U) 0.2 {Yazmin'U}/dL Normal 0.2 - 1. 0 [facility] Comment on above: Performed By: #### C MP, LIPID, TSH #### [facility] [address] [place] [address] Dr. Bertram Paulino MONOon 01-23-2023 Monocytes (Bld) [#/Vol] Negative Normal NEGATIVE [facility] Comment on above: Performed By: #### C MP, LIPID, TSH #### [facility] [address] [place] [address] Dr. Bertram Paulino PROF 14(COMP METB)on 023 Albumin [Mass/Vol] 4.1 g/dL Normal 3.4-5.0 [facility] Comment on above: Performed By: #### H STROPN, TSH, CMP #### [facility] [address] [place] [address] Dr. Bertram Paulino Albumin/Globulin [Mass ratio] 1.2 {ratio} Normal [facility] Comment on above: Performed By: #### H STROPN, TSH, CMP #### [facility] [address] [place] [address] Dr. Bertram Paulino ALP [Catalytic activity/Vol] 71 U/L Normal 46-116 [facility] Comment on above: Performed By: #### H STROPN, TSH, CMP #### [facility] [address] [place] [address] Dr. Bertram Paulino ALT [Catalytic activity/Vol] 53 U/L Normal 14-59 [facility] Comment on above: Performed By: #### H STROPN, TSH, CMP #### [facility] [address] [place] [address] Dr. Bertram Paulino Anion gap [Moles/Vol] 8.1 mmol/L Normal [facility] Comment on above: Performed By: #### H STROPN, TSH, CMP #### [facility] [address] [place] [address] Dr. Bertram Paulino AST [Catalytic activity/Vol] 35 U/L Normal 15-37 [facility] Comment on above: Performed By: #### H STROPN, TSH, CMP #### [facility] [address] [place] [address] Dr. Bertram Paulino Bilirubin [Mass/Vol] 0.3 mg/dL Normal 0.2-1.0 [facility] Comment on above: Performed By: #### H STROPN, TSH, CMP #### [facility] [address] [place] [address] Dr. Bertram Paulino Calcium [Mass/Vol] 9.3 mg/dL Normal 8.5-10.1 [facility] Comment on above: Performed By: #### H STROPN, TSH, CMP #### [facility] [address] [place] [address] Dr. Bertram Paulino Chloride [Moles/Vol] 103 mmol/L Normal 98-107 [facility] Comment on above: Performed By: #### H STROPN, TSH, CMP #### [facility] [address] [place] [address] Dr. Bertram Paulino CO2 [Moles/Vol] 29.5 mmol/L Normal 21.0-32.0 [facility] Comment on above: Performed By: #### H STROPN, TSH, CMP #### [facility] [address] [place] [address] Dr. Bertram Paulino Creatinine [Mass/Vol] 0.62 mg/dL Normal 0.55-1.02 [facility] Comment on above: Performed By: #### H STROPN, TSH, CMP #### [facility] [address] [place] [address] Dr. Bertram Paulino EGFR-AF MACANESE >60 Normal >=60 [facility] Comment on above: Performed By: #### H STROPN, TSH, CMP #### [facility] [address] [address] [address] Bertram Paulino EGFR-NON AF MACANESE >60 Normal >=60 [facility] Comment on above: Performed By: #### H STROPN, TSH, CMP #### [facility] [address] [address] [address] Bertram Paulino Globulin (S) [Mass/Vol] 3.3 g/dL Normal [facility] Comment on above: Performed By: #### H STROPN, TSH, CMP #### [facility] [address] [address] [address] Bertram Paulino Glucose [Mass/Vol] 121 mg/dL Critically high 74-106 [facility] Comment on above: Performed By: #### H STROPN, TSH, CMP #### [facility] [address] [place] [address] Dr. Bertram Paulino Potassium [Moles/Vol] 3.6 mmol/L Normal 3.5-5.1 [facility] Comment on above: Performed By: #### H STROPN, TSH, CMP #### [facility] [address] [address] [address] Bertram Paulino Protein [Mass/Vol] 7.4 g/dL Normal 6.4-8.2 [facility] Comment on above: Performed By: #### H STROPN, TSH, CMP #### [facility] [address] [place] [address] Dr. Bertram Paulino Sodium [Moles/Vol] 137 mmol/L Normal 136-145 [facility] Comment on above: Performed By: #### H STROPN, TSH, CMP #### [facility] [address] [place] [address] Dr. Bertram Paulino Urea nitrogen [Mass/Vol] 9.0 mg/dL Normal 7.0-18.0 [facility] Comment on above: Performed By: #### H STROPN, TSH, CMP #### [facility] [address] [address] [address] Bertram Paulino Urea nitrogen/Creatinine [Mass ratio] 14.5 mg/mg Normal [facility] Comment on above: Performed By: #### H STROPN, TSH, CMP #### [facility] [address] [place] [address] Dr. Bertram Paulino PROTIMEon 01-23-2023 INR Coag (PPP) [Relative time] {INR} Normal [facility] Comment on above: Performed By: #### C MP, LIPID, TSH #### [facility] [address] [place] [address] Dr. Bertram Paulino INR GUIDELINES SEE BELOW Normal [facility] Comment on above: Result Comment: TYRA RED INR: 2.0 - 3.0 CONDITIONS NOT LISTED BELOW 2.5 - 3.5 FOR PROSTHETIC HEART VALVE REPLACEMENT 2.5 - 3.5 RECURRENT THROMBOSIS Performed By: #### C MP, LIPID, TSH #### [facility] [address] [place] [address] Dr. Bertram Paulino PT Coag (PPP) [Time] 9.6 s Normal 9.0-11.6 [facility] Comment on above: Performed By: #### C MP, LIPID, TSH #### [facility] [address] [place] [address] Dr. Bertram Paulino PTTon 01-23-2023 aPTT Coag (Bld) [Time] s Normal 22.3-36.2 [facility] Comment on above: Performed By: #### C MP, LIPID, TSH #### [facility] [address] [place] [address] Dr. Bertram Paulino TROPONIN, HIGH SENSITIVITYon 01-23-2023 HSTROP 4.8 pg/mL Normal 4.0-51.3 [facility] Comment on above: Result Comment: CUT- OFF POINTS HAVE BEEN ESTABLISHED BASED ON THE FOURTH UNIVERSAL DEFINITIONS OF MYOCARDIAL INFARCTION. THE UPPER REFERENCE LIMIT (URL) OF TROPONIN, DEFINED THE 99TH PERCENTILE OF cTnI DISTRIBUTION IN A REFERENCE POPULATION, HAS BEEN CONFIRMED THE DECISION THRESHOLD FOR IA DIAGNOSIS. Performed By: #### C MP, LIPID, TSH #### [facility] [address] [place] [address] Dr. Bertram Paulino TSHon 01-23-2023 TSH 2.684 uIU/mL Normal 0.358-3.740 [facility] Comment on above: Performed By: #### H STROPN, TSH, CMP #### [facility] [address] [place] [address] Dr. Bertram Paulino CBC AUTO DIFFon 01-12-2023 BASO # 0.0 103/ul Normal 0.0-0.1 [facility] Comment on above: Performed By: #### C MP, LIPID, TSH #### [facility] [address] [place] [address] Dr. Bertram Paulino Basophils/100 WBC (Bld) 0.5 % Normal 0.2-2.0 [facility] Comment on above: Performed By: #### C MP, LIPID, TSH #### [facility] [address] [place] [address] Dr. Bertram Paulino EO # 0.2 103/ul Normal 0.0-0.7 [facility] Comment on above: Performed By: #### C MP, LIPID, TSH #### [facility] [address] [place] [address] Dr. Bertram Paulino Eosinophils/100 WBC (Bld) 3.6 % Normal 0.9-7.0 [facility] Comment on above: Performed By: #### C MP, LIPID, TSH #### [facility] [address] [place] [address] Dr. Bertram Paulino Erythrocyte distribution width (RBC) [Ratio] 12.7 % Normal 11.0-15.0 [facility] Comment on above: Performed By: #### C MP, LIPID, TSH #### [facility] [address] [place] [address] Dr. Bertram Paulino Hematocrit (Bld) [Volume fraction] 37.6 % Normal 36.0-48.0 [facility] Comment on above: Performed By: #### C MP, LIPID, TSH #### [facility] [address] [place] [address] Dr. Bertram Paulino Hemoglobin (Bld) [Mass/Vol] 12.7 g/dL Normal 12.0-16.0 [facility] Comment on above: Performed By: #### C MP, LIPID, TSH #### [facility] [address] [address] [address] Bertram Paulino IG # 0.02 10e3/ul Normal 0.00-0.03 [facility] Comment on above: Performed By: #### C MP, LIPID, TSH #### [facility] [address] [address] [address] Bertram Paulino IG % 0.3 % Normal 0.0-0.5 [facility] Comment on above: Performed By: #### C MP, LIPID, TSH #### [facility] [address] [address] [address] Bertram Paulino LYMPH # 2.2 103/ul Normal 1.2-3.8 [facility] Comment on above: Performed By: #### C MP, LIPID, TSH #### [facility] [address] [place] [address] Dr. Bertram Paulino Lymphocytes/100 WBC (Bld) 35.7 % Normal 20.5-60.0 [facility] Comment on above: Performed By: #### C MP, LIPID, TSH #### [facility] [address] [address] [address] Bertram Paulino MANUAL DIFF REQ NO Normal [place] Comment on above: Performed By: #### C MP, LIPID, TSH #### [facility] [address] [address] [address] Bertram Paulino MCH (RBC) [Entitic mass] 29.7 pg Normal 26.7-34.0 [facility] Comment on above: Performed By: #### C MP, LIPID, TSH #### [facility] [address] [address] [address] Bertram Paulino MCHC (RBC) [Mass/Vol] 33.8 g/dL Normal 29.9-35.2 [facility] Comment on above: Performed By: #### C MP, LIPID, TSH #### [facility] [address] [place] [address] Dr. Bertram Paulino MCV (RBC) [Entitic vol] 88.1 fL Normal 81.0-99.0 [facility] Comment on above: Performed By: #### C MP, LIPID, TSH #### [facility] [address] [place] [address] Dr. Bertram Paulino MONO # 0.3 103/ul Normal 0.3-0.8 [facility] Comment on above: Performed By: #### C MP, LIPID, TSH #### [facility] [address] [place] [address] Dr. Bertram Paulino Monocytes/100 WBC (Bld) 5.1 % Normal 1.7-12.0 [facility] Comment on above: Performed By: #### C MP, LIPID, TSH #### [facility] [address] [place] [address] Dr. Bertram Paulino NEUT # 3.4 103/ul Normal 1.4-6.5 [facility] Comment on above: Performed By: #### C MP, LIPID, TSH #### [facility] [address] [place] [address] Dr. Bertram Paulino Neutrophils/100 WBC (Bld) 54.8 % Normal 43.0-75.0 [facility] Comment on above: Performed By: #### C MP, LIPID, TSH #### [facility] [address] [place] [address] Dr. Bertram Paulino Platelet mean volume (Bld) [Entitic vol] 10.3 fL Normal 9.5-13.5 [facility] Comment on above: Performed By: #### C MP, LIPID, TSH #### [facility] [address] [place] [address] Dr. Bertram Paulino PLT 269 103/ul Normal 150-450 [facility] Comment on above: Performed By: #### C MP, LIPID, TSH #### [facility] [address] [place] [address] Dr. Bertram Paulino RBC 4.27 106/ul Normal 4.20-5.40 [facility] Comment on above: Performed By: #### C MP, LIPID, TSH #### [facility] [address] [place] [address] Dr. Bertram Paulino WBC 6.1 103/ul Normal 4.0-11.0 [facility] Comment on above: Performed By: #### C MP, LIPID, TSH #### [facility] [address] [address] [address] Bertram Paulino FREE T4on 01-12-2023 Free T4 [Mass/Vol] 1.00 ng/dL Normal 0.76-1.46 [facility] Comment on above: Performed By: #### C MP, LIPID, TSH #### [facility] [address] [address] [address] Bertram Paulino GLYCOHEMOGLOBIN A1Con 2022 ADA RECOMMENDATION SEE BELOW Normal [facility] Comment on above: Result Comment: ADA RECOMMENDED LIMIT 4.0 - 6.0 ADA THERAPEUTIC TARGET < 7.0 ACTION SUGGESTED > 7.0 Performed By: #### C MP, LIPID, TSH #### [facility] [address] [place] [address] Dr. Bertram Paulino Glucose [Mass/Vol] 126 mg/dL Normal [facility] Comment on above: Performed By: #### C MP, LIPID, TSH #### [facility] [address] [place] [address] Dr. Bertram Paulino HbA1c (Bld) [Mass fraction] 6.0 % Normal 4.5-6.2 [facility] Comment on above: Performed By: #### C MP, LIPID, TSH #### [facility] [address] [place] [address] Dr. Bertram Paulino LIPID PROFILEon 01-12-2023 CHOL-HDL RATIO NORM SEE BELOW Normal [facility] Comment on above: Result Comment: 3.3 - 4.4 LOW RISK 4.4 - 7.1 AVERAGE RISK 7.1 - 11.0 MODERATE RISK >11.0 HIGH RISK Performed By: #### C MP, LIPID, TSH #### [facility] [address] [place] [address] Dr. Bertram Paulino Cholesterol [Mass/Vol] 222 mg/dL Critically high <=200 [facility] Comment on above: Performed By: #### C MP, LIPID, TSH #### [facility] [address] [place] [address] Dr. Bertram Paulino Cholesterol in HDL [Mass/Vol] 44 mg/dL Normal 40-60 [facility] Comment on above: Performed By: #### C MP, LIPID, TSH #### [facility] [address] [address] [address] Bertram Paulino Cholesterol in LDL [Mass/Vol] 132.4 mg/dL Normal [facility] Comment on above: Performed By: #### C MP, LIPID, TSH #### [facility] [address] [address] [address] Bertram Paulino Cholesterol.total/Ch olesterol in HDL [Mass ratio] 5.0 {ratio} Normal [facility] Comment on above: Performed By: #### C MP, LIPID, TSH #### [facility] [address] [address] [address] Bertram Paulino HDL NORMAL > or = 60 mg/dl - LO W CARDIOVASCULAR RISK <40 mg/dl - HIGH CARDIOVASCULAR RISK Normal [facility] Comment on above: Performed By: #### C MP, LIPID, TSH #### [facility] [address] [address] [address] Bertram Paulino LDL CALC NORMAL SEE BELOW Normal [facility] Comment on above: Result Comment: <100 mg/dl OPTIMAL 100 - 129 mg/dl NEAR OR ABOVE OPTIMAL 130 - 159 mg/dl BORDERLINE HIGH 160 - 189 mg/dl HIGH >190 mg/dl VERY HIGH Performed By: #### C MP, LIPID, TSH #### [facility] [address] [address] [address] Bertram Paulino Triglyceride [Mass/Vol] 228 mg/dL Critically high <=150 [facility] Comment on above: Performed By: #### C MP, LIPID, TSH #### [facility] [address] [address] [address] Bertram Paulino VLDL CALC 45.6 mg/dL Normal [facility] Comment on above: Performed By: #### C MP, LIPID, TSH #### [facility] [address] [address] [address] Bertram Paulino PROF 14(COMP METB)on 023 Albumin [Mass/Vol] 3.8 g/dL Normal 3.4-5.0 [facility] Comment on above: Performed By: #### C MP, LIPID, TSH #### [facility] [address] [address] [address] Bertram Paulino Albumin/Globulin [Mass ratio] 1.2 {ratio} Normal [facility] Comment on above: Performed By: #### C MP, LIPID, TSH #### [facility] [address] [address] [address] Bertram Paulino ALP [Catalytic activity/Vol] 66 U/L Normal 46-116 [facility] Comment on above: Performed By: #### C MP, LIPID, TSH #### [facility] [address] [address] [address] Bertram Paulino ALT [Catalytic activity/Vol] 45 U/L Normal 14-59 [facility] Comment on above: Performed By: #### C MP, LIPID, TSH #### [facility] [address] [address] [address] Bertram Paulino Anion gap [Moles/Vol] 12.8 mmol/L Normal [facility] Comment on above: Performed By: #### C MP, LIPID, TSH #### [facility] [address] [place] [address] Dr. Bertram Paulino AST [Catalytic activity/Vol] 29 U/L Normal 15-37 [facility] Comment on above: Performed By: #### C MP, LIPID, TSH #### [facility] [address] [address] [address] Bertram Paulino Bilirubin [Mass/Vol] 0.4 mg/dL Normal 0.2-1.0 [facility] Comment on above: Performed By: #### C MP, LIPID, TSH #### [facility] [address] [address] [address] Bertram Paulino Calcium [Mass/Vol] 9.1 mg/dL Normal 8.5-10.1 [facility] Comment on above: Performed By: #### C MP, LIPID, TSH #### [facility] [address] [address] [address] Bertram Paulino Chloride [Moles/Vol] 104 mmol/L Normal 98-107 [facility] Comment on above: Performed By: #### C MP, LIPID, TSH #### [facility] [address] [address] [address] Bertram Paulino CO2 [Moles/Vol] 27.2 mmol/L Normal 21.0-32.0 [facility] Comment on above: Performed By: #### C MP, LIPID, TSH #### [facility] [address] [address] [address] Bertram Paulino Creatinine [Mass/Vol] 0.65 mg/dL Normal 0.55-1.02 [facility] Comment on above: Performed By: #### C MP, LIPID, TSH #### [facility] [address] [place] [address] Dr. Bertram Paulino EGFR-AF MACANESE >60 Normal >=60 [facility] Comment on above: Performed By: #### C MP, LIPID, TSH #### [facility] [address] [place] [address] Dr. Bertram Paulino EGFR-NON AF MACANESE >60 Normal >=60 [facility] Comment on above: Performed By: #### C MP, LIPID, TSH #### [facility] [address] [address] [address] Bertram Paulino Globulin (S) [Mass/Vol] 3.1 g/dL Normal [facility] Comment on above: Performed By: #### C MP, LIPID, TSH #### [facility] [address] [place] [address] Dr. Bertram Paulino Glucose [Mass/Vol] 123 mg/dL Critically high 74-106 T [facility] Comment on above: Performed By: #### C MP, LIPID, TSH #### [facility] [address] [address] [address] Bertram Paulino Potassium [Moles/Vol] 4.0 mmol/L Normal 3.5-5.1 [facility] Comment on above: Performed By: #### C MP, LIPID, TSH #### [facility] [address] [address] [address] Bertram Paulino Protein [Mass/Vol] 6.9 g/dL Normal 6.4-8.2 [facility] Comment on above: Performed By: #### C MP, LIPID, TSH #### [facility] [address] [address] [address] Bertram Paulino Sodium [Moles/Vol] 140 mmol/L Normal 136-145 [facility] Comment on above: Performed By: #### C MP, LIPID, TSH #### [facility] [address] [address] [address] Bertram Paulino Urea nitrogen [Mass/Vol] 6.0 mg/dL Critically low 7.0-18.0 [facility] Comment on above: Performed By: #### C MP, LIPID, TSH #### [facility] [address] [place] [address] Dr. Bertram Paulino Urea nitrogen/Creatinine [Mass ratio] 9.2 mg/mg Normal [facility] Comment on above: Performed By: #### C MP, LIPID, TSH #### [facility] [address] [place] [address] Dr. Bertram Paulino SED RATE [facility] 2022 SED RATE 23 mm/hr Normal <=30 [facility] Comment on above: Performed By: #### C MP, LIPID, TSH #### [facility] [address] [place] [address] Dr. Bertram Paulino TSHon 01-12-2023 TSH 2.215 uIU/mL Normal 0.358-3.740 [facility] Comment on above: Performed By: #### C MP, LIPID, TSH #### [facility] [address] [place] [address] CHEST W CONon [...] PASTOR ESPANA Date: 2022-08-10 06:47 Normal [facility] XR CHEST 2 Von 07-11-2022 XR [...] by: VANESSA PRESLEY Date: 2022-07-11 07:11 Normal [facility] Progress Noteson 07-05-2022 Technologist Development Authentication Interface Message Text Documentation: Mode: Telephone Patient Patient Work Phone: Patient Cell Preferred phone: [phone] Consent: I confirmed patient understanding of the risks and benefits of telehealth visits and obtained consent to proceed with the telehealth visit. 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 Bertram Paulino Basophils/100 WBC (Bld) 0.2 % Normal 0.2-2.0 [facility] Comment on above: Performed By: #### C MP, LIPID, TSH #### [facility] [address] [place], [place] [address] Dr. Bertram Paulino EO # 0.1 103/ul Normal 0.0-0.7 [facility] Comment on above: Performed By: #### C MP, LIPID, TSH #### [facility] [address] [address] [address] Bertram Paulino Eosinophils/100 WBC (Bld) 0.7 % Critically low 0.9-7.0 [facility] Comment on above: Performed By: #### C MP, LIPID, TSH #### [facility] [address] [place] [address] Dr. Bertram Paulino Erythrocyte distribution width (RBC) [Ratio] 12.9 % Normal 11.0-15.0 [facility] Comment on above: Performed By: #### C MP, LIPID, TSH #### [facility] [address] [place] [address] Dr. Bertram Paulino Hematocrit (Bld) [Volume fraction] 41.5 % Normal 36.0-48.0 [facility] Comment on above: Performed By: #### C MP, LIPID, TSH #### [facility] [address] [place] [address] Dr. Bertram Paulino Hemoglobin (Bld) [Mass/Vol] 14.1 g/dL Normal 12.0-16.0 [facility] Comment on above: Performed By: #### C MP, LIPID, TSH #### [facility] [address] [place] [address] Dr. Bertram Paulino IG # 0.03 10e3/ul Normal 0.00-0.03 [facility] Comment on above: Performed By: #### C MP, LIPID, TSH #### [facility] [address] [place] [address] Dr. Bertram Paulino IG % 0.3 % Normal 0.0-0.5 [facility] Comment on above: Performed By: #### C MP, LIPID, TSH #### [facility] [address] [place] [address] Dr. Bertram Paulino LYMPH # 2.4 103/ul Normal 1.2-3.8 [facility] Comment on above: Performed By: #### C MP, LIPID, TSH #### [facility] [address] [place] [address] Dr. Bertram Paulino Lymphocytes/100 WBC (Bld) 27.6 % Normal 20.5-60.0 [facility] Comment on above: Performed By: #### C MP, LIPID, TSH #### [facility] [address] [place] [address] Dr. Bertram Paulino MANUAL DIFF REQ NO Normal [facility] Comment on above: Performed By: #### C MP, LIPID, TSH #### [facility] [facility] [address] [address] [address] Bertram Paulino MCH (RBC) [Entitic mass] 29.7 pg Normal 26.7-34.0 [facility] Comment on above: Performed By: #### C MP, LIPID, TSH #### [facility] [address] [address] [address] Bertram Paulino MCHC (RBC) [Mass/Vol] 34.0 g/dL Normal 29.9-35.2 [facility] Comment on above: Performed By: #### C MP, LIPID, TSH #### [facility] [address] [place] [address] Dr. Bertram Paulino MCV (RBC) [Entitic vol] 87.6 fL Normal 81.0-99.0 [facility] Comment on above: Performed By: #### C MP, LIPID, TSH #### [facility] [address] [place] [address] Dr. Bertram Paulino MONO # 0.6 103/ul Normal 0.3-0.8 [facility] Comment on above: Performed By: #### C MP, LIPID, TSH #### [facility] [address] [place] [address] Dr. Bertram Paulino Monocytes/100 WBC (Bld) 6.8 % Normal 1.7-12.0 [facility] Comment on above: Performed By: #### C MP, LIPID, TSH #### [facility] [address] [address] [address] Bertram Paulino NEUT # 5.6 103/ul Normal 1.4-6.5 [facility] Comment on above: Performed By: #### C MP, LIPID, TSH #### [facility] [address] [address] [address] Bertram Paulino Neutrophils/100 WBC (Bld) 64.4 % Normal 43.0-75.0 [facility] Comment on above: Performed By: #### C MP, LIPID, TSH #### [facility] [address] [address] [address] Bertram Paulino Platelet mean volume (Bld) [Entitic vol] 10.0 fL Normal 9.5-13.5 [facility] Comment on above: Performed By: #### C MP, LIPID, TSH #### [facility] [address] [place] [address] Dr. Bertram Paulino PLT 326 103/ul Normal 150-450 [facility] Comment on above: Performed By: #### C MP, LIPID, TSH #### [facility] [address] [place] [address] Dr. Bertram Paulino RBC 4.74 106/ul Normal 4.20-5.40 [facility] Comment on above: Performed By: #### C MP, LIPID, TSH #### [facility] [address] [place] [address] Dr. Bertram Paulino WBC 8.7 103/ul Normal 4.0-11.0 [facility] Comment on above: Performed By: #### C MP, LIPID, TSH #### [facility] [address] [place] [address] Dr. Bertram Paulino ER URINE PROFILEon 2 Bilirubin Ql (U) Negative Normal NEGATIVE [facility] Comment on above: Performed By: #### C MP, LIPID, TSH #### [facility] [address] [place] [address] Dr. Bertram Paulino Clarity (U) CLEAR Normal CLEAR [facility] Comment on above: Performed By: #### C MP, LIPID, TSH #### [facility] [address] [place] [address] Dr. Bertram Paulino Color (U) LT. YELLOW Normal YELLOW [facility] Comment on above: Performed By: #### C MP, LIPID, TSH #### [facility] [address] [place] [address] Dr. Bertram Paulino ERUAHKaran A micrscopic examination will be performed if indicated. Normal [facility] Comment on above: Performed By: #### C MP, LIPID, TSH #### [facility] [address] [address] [address] Bertram Paulino Glucose Ql (U) Negative Normal NEGATIVE [facility] Comment on above: Performed By: #### C MP, LIPID, TSH #### [facility] [address] [address] [address] Bertram Paulino Hemoglobin Ql (U) Negative Normal NEGATIVE [facility] Comment on above: Performed By: #### C MP, LIPID, TSH #### [facility] [address] [address] [address] Bertram Paulino Ketones Ql (U) TRACE Abnormal NEGATIVE [facility] Comment on above: Performed By: #### C MP, LIPID, TSH #### [facility] [address] [place] [address] Dr. Bertram Paulino LEUKOCYTES Negative Normal NEGATIVE [facility] Comment on above: Performed By: #### C MP, LIPID, TSH #### [facility] [address] [place] [address] Dr. Bertram Paulino Nitrite Ql (U) Negative Normal NEGATIVE [facility] Comment on above: Performed By: #### C MP, LIPID, TSH #### [facility] [address] [address] [address] Bertram Paulino pH (U) 6.0 [pH] Normal 5-9 [facility] Comment on above: Performed By: #### C MP, LIPID, TSH #### [facility] [address] [place] [address] Dr. Bertram Paulino SPEC GRAVITY <=1.005 Abnormal 1.005-<=1.025 [facility] Comment on above: Performed By: #### C MP, LIPID, TSH #### [facility] [address] [address] [address] Bertram Paulino UA PROTEIN Negative Normal NEGATIVE/ TRACE [facility] Comment on above: Performed By: #### C MP, LIPID, TSH #### [facility] [address] [place] [address] Dr. Bertram Paulino UR MICRO IND NOT INDICATED Normal [facility] Comment on above: Performed By: #### C MP, LIPID, TSH #### [facility] [address] [address] [address] Bertram Paulino Urobilinogen Qn (U) 0.2 {Yazmin'U}/dL Normal 0.2 - 1. 0 [facility] Comment on above: Performed By: #### C MP, LIPID, TSH #### [facility] [address] [address] [address] Bertram Paulino LACTATE/LACTIC ACIDon 2021 Lactate [Moles/Vol] 1.2 mmol/L Normal 0.4-1.9 [facility] Comment on above: Performed By: #### C MP, LIPID, TSH #### [facility] [address] [place] [address] Dr. Bertram Paulino MONOon 07-01-2022 Monocytes (Bld) [#/Vol] Negative Normal NEGATIVE [facility] Comment on above: Performed By: #### M VENUS ####[facility] [id number] [address]Dr. Bertram Paulino PROF 14(COMP METB)on 022 Albumin [Mass/Vol] 4.1 g/dL Normal 3.4-5.0 [facility] Comment on above: Performed By: #### C MP, LIPID, TSH #### [facility] [address] [place] [address] Dr. Bertram Paulino Albumin/Globulin [Mass ratio] 1.1 {ratio} Normal [facility] Comment on above: Performed By: #### C MP, LIPID, TSH #### [facility] [address] [place] [address] Dr. Bertram Paulino ALP [Catalytic activity/Vol] 57 U/L Normal 46-116 [facility] Comment on above: Performed By: #### C MP, LIPID, TSH #### [facility] [address] [place] [address] Dr. Bertram Paulino ALT [Catalytic activity/Vol] 38 U/L Normal 14-59 [facility] Comment on above: Performed By: #### C MP, LIPID, TSH #### [facility] [address] [address] [address] Bertram Paulino Anion gap [Moles/Vol] 13.9 mmol/L Normal [facility] Comment on above: Performed By: #### C MP, LIPID, TSH #### [facility] [address] [address] [address] Bertram Paulino AST [Catalytic activity/Vol] 22 U/L Normal 15-37 [facility] Comment on above: Performed By: #### C MP, LIPID, TSH #### [facility] [address] [place] [address] Dr. Bertram Paulino Bilirubin [Mass/Vol] 0.7 mg/dL Normal 0.2-1.0 [facility] Comment on above: Performed By: #### C MP, LIPID, TSH #### [facility] [address] [place] [address] Dr. Bertram Paulino Calcium [Mass/Vol] 9.6 mg/dL Normal 8.5-10.1 [facility] Comment on above: Performed By: #### C MP, LIPID, TSH #### [facility] [address] [place] [address] Dr. Bertram Paulino Chloride [Moles/Vol] 98 mmol/L Normal 98-107 [facility] Comment on above: Performed By: #### C MP, LIPID, TSH #### [facility] [address] [address] [address] Bertram Paulino CO2 [Moles/Vol] 27.4 mmol/L Normal 21.0-32.0 [facility] Comment on above: Performed By: #### C MP, LIPID, TSH #### [facility] [address] [address] [address] Bertram Paulino Creatinine [Mass/Vol] 0.85 mg/dL Normal 0.55-1.02 [facility] Comment on above: Performed By: #### C MP, LIPID, TSH #### [facility] [address] [address] [address] Bertram Paulino EGFR-AF MACANESE >60 Normal >=60 [facility] Comment on above: Performed By: #### C MP, LIPID, TSH #### [facility] [address] [address] [address] Bertram Paulino EGFR-NON AF MACANESE >60 Normal >=60 [facility] Comment on above: Performed By: #### C MP, LIPID, TSH #### [facility] [address] [address] [address] Bertram Paulino Globulin (S) [Mass/Vol] 3.6 g/dL Normal [facility] Comment on above: Performed By: #### C MP, LIPID, TSH #### [facility] [address] [address] [address] Bertram Paulino Glucose [Mass/Vol] 99 mg/dL Normal 74-106 [facility] Comment on above: Performed By: #### C MP, LIPID, TSH #### [facility] [address] [place] [address] Dr. Bertram Paulino Potassium [Moles/Vol] 3.3 mmol/L Critically low 3.5-5.1 [facility] Comment on above: Performed By: #### C MP, LIPID, TSH #### [facility] [address] [address] [address] Bertram Paulino Protein [Mass/Vol] 7.7 g/dL Normal 6.4-8.2 [facility] Comment on above: Performed By: #### C MP, LIPID, TSH #### [facility] [address] [address] [address] Bertram Paulino Sodium [Moles/Vol] 136 mmol/L Normal 136-145 [facility] Comment on above: Performed By: #### C MP, LIPID, TSH #### [facility] [address] [address] [address] Bertram Paulino Urea nitrogen [Mass/Vol] 13.0 mg/dL Normal 7.0-18.0 [facility] Comment on above: Performed By: #### C MP, LIPID, TSH #### [facility] [address] [address] [address] Bertram Paulino Urea nitrogen/Creatinine [Mass ratio] 15.3 mg/mg Normal [facility] Comment on above: Performed By: #### C MP, LIPID, TSH #### [facility] [address] [address] [address] Bertram Paulino TROPONIN, HIGH SENSITIVITYon 07-01-2022 HSTROP 6.5 pg/mL Normal 4.0-51.3 [facility] Comment on above: Result Comment: CUT- OFF POINTS HAVE BEEN ESTABLISHED BASED ON THE FOURTH UNIVERSAL DEFINITIONS OF MYOCARDIAL INFARCTION. THE UPPER REFERENCE LIMIT (URL) OF TROPONIN, DEFINED THE 99TH PERCENTILE OF cTnI DISTRIBUTION IN A REFERENCE POPULATION, HAS BEEN CONFIRMED THE DECISION THRESHOLD FOR IA DIAGNOSIS. Performed By: #### T SH, CMP, HSTROPN ####[facility] [id number] [address]Dr. Bertram Paulino TSHon 07-01-2022 TSH 2.596 uIU/mL Normal 0.358-3.740 [facility] Comment on above: Performed By: #### T SH, CMP, HSTROPN ####[facility] [address] [address]Dr. Bertram Paulino STOOL CULTUREon 06-10-2022 Campylobacter Culture Final report Normal [facility] Comment on above: Performed By: #### C MP, LIPID, TSH #### [facility] [address] [address] [address] Bertram Paulino E coli Shiga Toxin EIA Negative Normal Negative [facility] Comment on above: Performed By: #### C MP, LIPID, TSH #### [facility] [address] [address] [address] Bertram Paulino Result 1 Comment Normal [facility] Comment on above: Result Comment: No S almonella or Shigella recovered. Performed By: #### C MP, LIPID, TSH #### [facility] [address] [address] [address] Bertram Paulino Result Comment: No C ampylobacter species isolated. Salmonella/Shigella Screen Final report Normal [facility] Comment on above: Performed By: #### C MP, LIPID, TSH #### [facility] [address] [address] [address] Bertram Paulino OVA AND PARASITE EXAMINATION on 06-09-2022 Ova + Parasite Exam Final report Normal [facility] Comment on above: Result Comment: Thes e results were obtained using wet preparation(s) and trichrome stained smear. This test does not include testing for Cryptosporidium parvum, Cyclospora, or Microsporidia. Performed By: #### O VAPE ####[facility] [address] [address]Dr. Bertram Paulino Result 1 Comment Normal [facility] Comment on above: Result Comment: No o va, cysts, or parasites seen. . One negative specimen does not rule out the possibility of a parasitic infection. Performed By: #### O VAPE ####[facility] [address] [address]Dr. Bertram Paulino CLOSTRIDIUM DIFFICILE PCRon 06-07-2022 C difficile Toxin Gene KIRT Negative Normal Negative [facility] Comment on above: Performed By: #### C DIFNAA #### [facility] [address] [place] [address] Dr. Bertram Paulino OCC BLD IMMUNO SCREENon 05-14 OCCULT BLOOD Negative Normal NEGATIVE [facility] Comment on above: Performed By: #### C MP, LIPID, TSH #### [facility] [address] [address] [address] Bertram Paulino CARDIAC ERASMO 3-6on 2 CK [Catalytic activity/Vol] 109 U/L Normal 26-192 [facility] Comment on above: Performed By: #### C MP, LIPID, TSH #### [facility] [address] [place] [address] Dr. Bertram Paulino CK.MB [Mass/Vol] 1.63 ng/mL Normal <=3.60 [facility] Comment on above: Performed By: #### C MP, LIPID, TSH #### [facility] [address] [place] [address] Dr. Bertram Paulino HSTROP 6.0 pg/mL Normal 4.0-51.3 [facility] Comment on above: Result Comment: CUT- OFF POINTS HAVE BEEN ESTABLISHED BASED ON THE FOURTH UNIVERSAL DEFINITIONS OF MYOCARDIAL INFARCTION. THE UPPER REFERENCE LIMIT (URL) OF TROPONIN, DEFINED THE 99TH PERCENTILE OF cTnI DISTRIBUTION IN A REFERENCE POPULATION, HAS BEEN CONFIRMED THE DECISION THRESHOLD FOR IA DIAGNOSIS. Performed By: #### C MP, LIPID, TSH #### [facility] [address] [address] [address] Bertram Paulino CK [Catalytic activity/Vol] 101 U/L Normal 26-192 [facility] Comment on above: Performed By: #### C MREP ####[facility] [address] [address]DrHazel Paulino CK.MB [Mass/Vol] 1.60 ng/mL Normal <=3.60 [facility] Comment on above: Performed By: #### C MREP ####[facility] [address] [address]Dr. Bertram Paulino HSTROP 5.8 pg/mL Normal 4.0-51.3 [facility] Comment on above: Result Comment: CUT- OFF POINTS HAVE BEEN ESTABLISHED BASED ON THE FOURTH UNIVERSAL DEFINITIONS OF MYOCARDIAL INFARCTION. THE UPPER REFERENCE LIMIT (URL) OF TROPONIN, DEFINED THE 99TH PERCENTILE OF cTnI DISTRIBUTION IN A REFERENCE POPULATION, HAS BEEN CONFIRMED THE DECISION THRESHOLD FOR IA DIAGNOSIS. Performed By: #### C MREP ####[facility] [address] [address]Dr. Bertram Paulino CBC AUTO DIFFon 05-15-2022 BASO # 0.1 103/ul Normal 0.0-0.1 [facility] Comment on above: Performed By: #### C MP, LIPID, TSH #### [facility] [address] [place] [address] Dr. Bertram Paulino Basophils/100 WBC (Bld) 0.8 % Normal 0.2-2.0 [facility] Comment on above: Performed By: #### C MP, LIPID, TSH #### [facility] [address] [place] [address] Dr. Bertram Paulino EO # 0.2 103/ul Normal 0.0-0.7 [facility] Comment on above: Performed By: #### C MP, LIPID, TSH #### [facility] [address] [address] [address] Bertram Paulino Eosinophils/100 WBC (Bld) 2.9 % Normal 0.9-7.0 [facility] Comment on above: Performed By: #### C MP, LIPID, TSH #### [facility] [address] [place] [address] Dr. Bertram Paulino Erythrocyte distribution width (RBC) [Ratio] 13.5 % Normal 11.0-15.0 [facility] Comment on above: Performed By: #### C MP, LIPID, TSH #### [facility] [address] [address] [address] Bertram Paulino Hematocrit (Bld) [Volume fraction] 34.4 % Critically low 36.0-48.0 [facility] Comment on above: Performed By: #### C MP, LIPID, TSH #### [facility] [address] [place] [address] Dr. Bertram Paulino Hemoglobin (Bld) [Mass/Vol] 11.8 g/dL Critically low 12.0-16.0 [facility] Comment on above: Performed By: #### C MP, LIPID, TSH #### [facility] [address] [place] [address] Dr. Bertram Paulino IG # 0.03 10e3/ul Normal 0.00-0.03 [facility] Comment on above: Performed By: #### C MP, LIPID, TSH #### [facility] [address] [place] [address] Dr. Bertram Paulino IG % 0.5 % Normal 0.0-0.5 [facility] Comment on above: Performed By: #### C MP, LIPID, TSH #### [facility] [address] [place] [address] Dr. Bertram Paulino LYMPH # 2.7 103/ul Normal 1.2-3.8 [facility] Comment on above: Performed By: #### C MP, LIPID, TSH #### [facility] [address] [place] [address] Dr. Bertram Paulino Lymphocytes/100 WBC (Bld) 41.3 % Normal 20.5-60.0 [facility] Comment on above: Performed By: #### C MP, LIPID, TSH #### [facility] [address] [place] [address] Dr. Bertram Paulino MANUAL DIFF REQ NO Normal [place] Comment on above: Performed By: #### C MP, LIPID, TSH #### [facility] [address] [place] [address] Dr. Bertram Paulino MCH (RBC) [Entitic mass] 29.9 pg Normal 26.7-34.0 [facility] Comment on above: Performed By: #### C MP, LIPID, TSH #### [facility] [address] [place] [address] Dr. Bertram Paulino MCHC (RBC) [Mass/Vol] 34.3 g/dL Normal 29.9-35.2 [facility] Comment on above: Performed By: #### C MP, LIPID, TSH #### [facility] [address] [place] [address] Dr. Bertram Paulino MCV (RBC) [Entitic vol] 87.3 fL Normal 81.0-99.0 [facility] Comment on above: Performed By: #### C MP, LIPID, TSH #### [facility] [address] [place] [address] Dr. Bertram Paulino MONO # 0.6 103/ul Normal 0.3-0.8 [facility] Comment on above: Performed By: #### C MP, LIPID, TSH #### [facility] [address] [place] [address] Dr. Bertram Paulino Monocytes/100 WBC (Bld) 9.6 % Normal 1.7-12.0 [facility] Comment on above: Performed By: #### C MP, LIPID, TSH #### [facility] [address] [place] [address] Dr. Bertram Paulino NEUT # 2.9 103/ul Normal 1.4-6.5 [facility] Comment on above: Performed By: #### C MP, LIPID, TSH #### [facility] [address] [place] [address] Dr. Bertram Paulino Neutrophils/100 WBC (Bld) 44.9 % Normal 43.0-75.0 [facility] Comment on above: Performed By: #### C MP, LIPID, TSH #### [facility] [address] [address] [address] Bertram Paulino Platelet mean volume (Bld) [Entitic vol] 11.0 fL Normal 9.5-13.5 [facility] Comment on above: Performed By: #### C MP, LIPID, TSH #### [facility] [address] [address] [address] Bertram Paulino PLT 281 103/ul Normal 150-450 [facility] Comment on above: Performed By: #### C MP, LIPID, TSH #### [facility] [address] [address] [address] Bertram Paulino RBC 3.94 106/ul Critically low 4.20-5.40 [place] Comment on above: Performed By: #### C MP, LIPID, TSH #### [facility] [address] [place] [address] Dr. Bertram Paulino WBC 6.5 103/ul Normal 4.0-11.0 [facility] Comment on above: Performed By: #### C KATLIN, LIPID, TSH #### [facility] [address] [place] [address] Dr. Bertram Paulino CTA CHEST WO W CONon 07-03-2 022 CTA CHEST WO W CON EXAMINATION:CTA [...] 2022-05-14 23:01 Normal [facility] Covid-19 PCR (CVDTB)on SARS-CoV-2 (COVID-19) RNA KIRT+probe Ql (Unsp spec) Not detected Normal NOT DETECTED [facility] Comment on above: Result Comment: When diagnostic [...] for this test is supported by the [employer] and Human Service's declaration that [...] MP, LIPID, TSH #### [facility] [address] [place], [place] [address] Dr. Bertram Paulino PROF 14(COMP METB)on 022 Albumin [Mass/Vol] 3.3 g/dL Critically low 3.4-5.0 [facility] Comment on above: Performed By: #### C MP, LIPID, TSH #### [facility] [address] [place], [place] [address] Dr. Bertram Paulino Albumin/Globulin [Mass ratio] 1.1 {ratio} Normal [facility] Comment on above: Performed By: #### C MP, LIPID, TSH #### [facility] [address] [address] [address] Bertram Paulino ALP [Catalytic activity/Vol] 47 U/L Normal 46-116 [facility] Comment on above: Performed By: #### C MP, LIPID, TSH #### [facility] [address] [address] [address] Bertram Paulino ALT [Catalytic activity/Vol] 42 U/L Normal 14-59 [facility] Comment on above: Performed By: #### C MP, LIPID, TSH #### [facility] [address] [address] [address] Bertram Paulino Anion gap [Moles/Vol] 14.3 mmol/L Normal [facility] Comment on above: Performed By: #### C MP, LIPID, TSH #### [facility] [address] [address] [address] Bertram Paulino AST [Catalytic activity/Vol] 20 U/L Normal 15-37 [facility] Comment on above: Performed By: #### C MP, LIPID, TSH #### [facility] [address] [address] [address] Bertram Paulino Bilirubin [Mass/Vol] 0.3 mg/dL Normal 0.2-1.0 [facility] Comment on above: Performed By: #### C MP, LIPID, TSH #### [facility] [address] [place] [address] Dr. Bertram Paulino Calcium [Mass/Vol] 9.0 mg/dL Normal 8.5-10.1 [facility] Comment on above: Performed By: #### C MP, LIPID, TSH #### [facility] [facility] [address] [address] [address] Bertram Paulino Chloride [Moles/Vol] 105 mmol/L Normal 98-107 [facility] Comment on above: Performed By: #### C MP, LIPID, TSH #### [facility] [address] [address] [address] Bertram Paulino CO2 [Moles/Vol] 26.5 mmol/L Normal 21.0-32.0 [facility] Comment on above: Performed By: #### C MP, LIPID, TSH #### [facility] [address] [address] [address] Bertram Paulino Creatinine [Mass/Vol] 0.77 mg/dL Normal 0.55-1.02 [facility] Comment on above: Performed By: #### C MP, LIPID, TSH #### [facility] [address] [address] [address] Bertram Paulino EGFR-AF MACANESE >60 Normal >=60 [facility] Comment on above: Performed By: #### C MP, LIPID, TSH #### [facility] [address] [address] [address] Bertram Paulino EGFR-NON AF MACANESE >60 Normal >=60 [facility] Comment on above: Performed By: #### C MP, LIPID, TSH #### [facility] [address] [address] [address] Bertram Paulino Globulin (S) [Mass/Vol] 3.1 g/dL Normal [facility] Comment on above: Performed By: #### C MP, LIPID, TSH #### [facility] [address] [address] [address] Bertram Paulino Glucose [Mass/Vol] 99 mg/dL Normal 74-106 [facility] Comment on above: Performed By: #### C MP, LIPID, TSH #### [facility] [address] [address] [address] Bertram Paulino Potassium [Moles/Vol] 3.8 mmol/L Normal 3.5-5.1 [facility] Comment on above: Performed By: #### C MP, LIPID, TSH #### [facility] [address] [address] [address] Bertram Paulino Protein [Mass/Vol] 6.4 g/dL Normal 6.4-8.2 [facility] Comment on above: Performed By: #### C MP, LIPID, TSH #### [facility] [address] [address] [address] Bertram Paulino Sodium [Moles/Vol] 142 mmol/L Normal 136-145 [facility] Comment on above: Performed By: #### C MP, LIPID, TSH #### [facility] [address] [address] [address] Bertram Paulino Urea nitrogen [Mass/Vol] 8.0 mg/dL Normal 7.0-18.0 [facility] Comment on above: Performed By: #### C MP, LIPID, TSH #### [facility] [address] [place] [address] Dr. Bertram Paulino Urea nitrogen/Creatinine [Mass ratio] 10.4 mg/mg Normal [facility] Comment on above: Performed By: #### C MP, LIPID, TSH #### [facility] [address] [place] [address] Dr. Bertram Paulino UA (CLEAN/CATCH) LEARNING SPECIALIST/MICRO I F IND.on 05-15-2022 Bilirubin Ql (U) Negative Normal NEGATIVE [facility] Comment on above: Performed By: #### C MP, LIPID, TSH #### [facility] [address] [place] [address] Dr. Bertram Paulino Clarity (U) SL CLOUDY Abnormal CLEAR [facility] Comment on above: Performed By: #### C MP, LIPID, TSH #### [facility] [address] [place] [address] Dr. Bertram Paulino Color (U) LT. YELLOW Normal YELLOW [facility] Comment on above: Performed By: #### C MP, LIPID, TSH #### [facility] [address] [place] [address] Dr. Bertram Paulino Glucose Ql (U) Negative Normal NEGATIVE [facility] Comment on above: Performed By: #### C MP, LIPID, TSH #### [facility] [address] [place] [address] Dr. Bertram Paulino Hemoglobin Ql (U) Negative Normal NEGATIVE [facility] Comment on above: Performed By: #### C MP, LIPID, TSH #### [facility] [address] [place] [address] Dr. Bertram Paulino Ketones Ql (U) Negative Normal NEGATIVE [facility] Comment on above: Performed By: #### C MP, LIPID, TSH #### [facility] [address] [place] [address] Dr. Bertram Paulino LEUKOCYTES Negative Normal NEGATIVE [facility] Comment on above: Performed By: #### C MP, LIPID, TSH #### [facility] [address] [place] [address] Dr. Bertram Paulino Nitrite Ql (U) Negative Normal NEGATIVE [facility] Comment on above: Performed By: #### C MP, LIPID, TSH #### [facility] [address] [place] [address] Dr. Bertram Paulino pH (U) 5.5 [pH] Normal 5-9 [facility] Comment on above: Performed By: #### C MP, LIPID, TSH #### [facility] [address] [place] [address] Dr. Bertram Paulino SPEC GRAVITY 1.010 Normal 1.005-<=1.025 [place] Comment on above: Performed By: #### C MP, LIPID, TSH #### [facility] [address] [place] [address] Dr. Bertram Paulino UA PROTEIN Negative Normal NEGATIVE/ TRACE [facility] Comment on above: Performed By: #### C MP, LIPID, TSH #### [facility] [address] [place] [address] Dr. Bertram Paulino UR MICRO IND NOT INDICATED Normal [facility] Comment on above: Performed By: #### C MP, LIPID, TSH #### [facility] [address] [place] [address] Dr. Bertram Paulino Urobilinogen Qn (U) 0.2 {Yazmin'U}/dL Normal 0.2 - 1. 0 [facility] Comment on above: Performed By: #### C MP, LIPID, TSH #### [facility] [address] [place] [address] Dr. Bertram Paulino CARDIAC ERASMO ADMITon 022 CK [Catalytic activity/Vol] 117 U/L Normal 26-192 [facility] Comment on above: Performed By: #### C MP, LIPID, TSH #### [facility] [address] [place] [address] Dr. Bertram Paulino CK.MB [Mass/Vol] 2.08 ng/mL Normal <=3.60 [facility] Comment on above: Performed By: #### C MP, LIPID, TSH #### [facility] [address] [place] [address] Dr. Bertram Paulino HSTROP 4.7 pg/mL Normal 4.0-51.3 [facility] Comment on above: Result Comment: CUT- OFF POINTS HAVE BEEN ESTABLISHED BASED ON THE FOURTH UNIVERSAL DEFINITIONS OF MYOCARDIAL INFARCTION. THE UPPER REFERENCE LIMIT (URL) OF TROPONIN, DEFINED THE 99TH PERCENTILE OF cTnI DISTRIBUTION IN A REFERENCE POPULATION, HAS BEEN CONFIRMED THE DECISION THRESHOLD FOR IA DIAGNOSIS. Performed By: #### C MP, LIPID, TSH #### [facility] [address] [place] [address] Dr. Bertram Paulino JEAN-PIERRE 28 ng/mL Normal 9-82 [facility] Comment on above: Performed By: #### C MP, LIPID, TSH #### [facility] [address] [place] [address] Dr. Bertram Paulino CBC AUTO DIFFon 05-14-2022 BASO # 0.0 103/ul Normal 0.0-0.1 [facility] Comment on above: Performed By: #### C MP, LIPID, TSH #### [facility] [address] [place] [address] Dr. Bertram Paulino Basophils/100 WBC (Bld) 0.5 % Normal 0.2-2.0 [facility] Comment on above: Performed By: #### C MP, LIPID, TSH #### [facility] [address] [place] [address] Dr. Bertram Paulino EO # 0.1 103/ul Normal 0.0-0.7 [facility] Comment on above: Performed By: #### C MP, LIPID, TSH #### [facility] [address] [place] [address] Dr. Bertram Paulino Eosinophils/100 WBC (Bld) 1.6 % Normal 0.9-7.0 [facility] Comment on above: Performed By: #### C MP, LIPID, TSH #### [facility] [address] [place] [address] Dr. Bertram Paulino Erythrocyte distribution width (RBC) [Ratio] 13.4 % Normal 11.0-15.0 [facility] Comment on above: Performed By: #### C MP, LIPID, TSH #### [facility] [address] [place] [address] Dr. Bertram Paulino Hematocrit (Bld) [Volume fraction] 37.4 % Normal 36.0-48.0 [facility] Comment on above: Performed By: #### C MP, LIPID, TSH #### [facility] [address] [place] [address] Dr. Bertram Paulino Hemoglobin (Bld) [Mass/Vol] 12.3 g/dL Normal 12.0-16.0 [facility] Comment on above: Performed By: #### C MP, LIPID, TSH #### [facility] [address] [place] [address] Dr. Bertram Paulino IG # 0.02 10e3/ul Normal 0.00-0.03 [facility] Comment on above: Performed By: #### C MP, LIPID, TSH #### [facility] [address] [place] [address] Dr. Bertram Paulino IG % 0.3 % Normal 0.0-0.5 [facility] Comment on above: Performed By: #### C MP, LIPID, TSH #### [facility] [address] [place] [address] Dr. Bertram Paulino LYMPH # 2.6 103/ul Normal 1.2-3.8 [facility] Comment on above: Performed By: #### C MP, LIPID, TSH #### [facility] [address] [place] [address] Dr. Bertram Paulino Lymphocytes/100 WBC (Bld) 34.5 % Normal 20.5-60.0 [facility] Comment on above: Performed By: #### C MP, LIPID, TSH #### [facility] [address] [address] [address] Bertram Paulino MANUAL DIFF REQ NO Normal [place] Comment on above: Performed By: #### C MP, LIPID, TSH #### [facility] [address] [address] [address] Bertram Paulino MCH (RBC) [Entitic mass] 29.4 pg Normal 26.7-34.0 [facility] Comment on above: Performed By: #### C MP, LIPID, TSH #### [facility] [address] [place] [address] Dr. Bertram Paulino MCHC (RBC) [Mass/Vol] 32.9 g/dL Normal 29.9-35.2 [facility] Comment on above: Performed By: #### C MP, LIPID, TSH #### [facility] [address] [place] [address] Dr. Bertram Paulino MCV (RBC) [Entitic vol] 89.3 fL Normal 81.0-99.0 [facility] Comment on above: Performed By: #### C MP, LIPID, TSH #### [facility] [address] [place] [address] Dr. Bertram Paulino MONO # 0.5 103/ul Normal 0.3-0.8 [facility] Comment on above: Performed By: #### C MP, LIPID, TSH #### [facility] [address] [address] [address] Bertram Paulino Monocytes/100 WBC (Bld) 6.3 % Normal 1.7-12.0 [facility] Comment on above: Performed By: #### C MP, LIPID, TSH #### [facility] [address] [place] [address] Dr. Bertram Paulino NEUT # 4.3 103/ul Normal 1.4-6.5 [facility] Comment on above: Performed By: #### C MP, LIPID, TSH #### [facility] [address] [place] [address] Dr. Bertram Paulino Neutrophils/100 WBC (Bld) 56.8 % Normal 43.0-75.0 [facility] Comment on above: Performed By: #### C MP, LIPID, TSH #### [facility] [address] [place] [address] Dr. Bertram Paulino Platelet mean volume (Bld) [Entitic vol] 10.7 fL Normal 9.5-13.5 [facility] Comment on above: Performed By: #### C MP, LIPID, TSH #### [facility] [address] [place] [address] Dr. Bertram Paulino PLT 295 103/ul Normal 150-450 [facility] Comment on above: Performed By: #### C MP, LIPID, TSH #### [facility] [address] [place] [address] Dr. Bertram Paulino RBC 4.19 106/ul Critically low 4.20-5.40 [facility] Comment on above: Performed By: #### C MP, LIPID, TSH #### [facility] [address] [place] [address] Dr. Bertram Paulino WBC 7.6 103/ul Normal 4.0-11.0 [facility] Comment on above: Performed By: #### C MP, LIPID, TSH #### [facility] [address] [place] [address] Dr. Bertram Paulino D-DIMERon 05-14-2022 D-DIMER 0.65 mg/L FEU Critically high <=0.59 [facility] Comment on above: Performed By: #### D DIM #### [facility] [address] [place] [address] Dr. Bertram Paulino D-DIMER COMMENTS SEE BELOW Normal [facility] Comment on above: Result Comment: Incr [...] #### D DIM #### [facility] [address] [place] [address] Dr. Bertram Paulino PROF CHEM 8 (BAS METB)on Anion gap [Moles/Vol] 10.7 mmol/L Normal [facility] Comment on above: Performed By: #### C MP, LIPID, TSH #### [facility] [address] [place] [address] Dr. Bertram Paulino Calcium [Mass/Vol] 9.6 mg/dL Normal 8.5-10.1 [facility] Comment on above: Performed By: #### C MP, LIPID, TSH #### [facility] [address] [place] [address] Dr. Bertram Paulino Chloride [Moles/Vol] 102 mmol/L Normal 98-107 [facility] Comment on above: Performed By: #### C MP, LIPID, TSH #### [facility] [address] [place] [address] Dr. Bertram Paulino CO2 [Moles/Vol] 28.8 mmol/L Normal 21.0-32.0 [facility] Comment on above: Performed By: #### C MP, LIPID, TSH #### [facility] [address] [place] [address] Dr. Bertram Paulino Creatinine [Mass/Vol] 0.83 mg/dL Normal 0.55-1.02 [facility] Comment on above: Performed By: #### C MP, LIPID, TSH #### [facility] [address] [place] [address] Dr. Bertram Paulino EGFR-AF MACANESE >60 Normal >=60 [facility] Comment on above: Performed By: #### C MP, LIPID, TSH #### [facility] [address] [place] [address] Dr. Bertram Paulino EGFR-NON AF MACANESE >60 Normal >=60 [facility] Comment on above: Performed By: #### C MP, LIPID, TSH #### [facility] [address] [place] [address] Dr. Bertram Paulino Glucose [Mass/Vol] 128 mg/dL Critically high 74-106 [facility] Comment on above: Performed By: #### C MP, LIPID, TSH #### [facility] [address] [address] [address] Bertram Paulino Potassium [Moles/Vol] 3.5 mmol/L Normal 3.5-5.1 [facility] Comment on above: Performed By: #### C MP, LIPID, TSH #### [facility] [id number] Bertram Paulino Sodium [Moles/Vol] 138 mmol/L Normal 136-145 [facility] Comment on above: Performed By: #### C MP, LIPID, TSH #### [facility] [address] [address] [address] Bertram Paulino Urea nitrogen [Mass/Vol] 8.0 mg/dL Normal 7.0-18.0 [facility] Comment on above: Performed By: #### C MP, LIPID, TSH #### [facility] [address] [address] [address] Bertram Paulino Urea nitrogen/Creatinine [Mass ratio] 9.6 mg/mg Normal [facility] Comment on above: Performed By: #### C MP, LIPID, TSH #### [facility] [id number] Bertram Paulino XR CHEST 1 Von [...] 2022-05-14 19:51 Normal [facility] CARDIAC ERASMO ADMITon 022 CK [Catalytic activity/Vol] 45 U/L Normal 26-192 [facility] Comment on above: Performed By: #### C MADM, TSH, CMP ####[facility] [id number] [id number] Bertram Paulino CK.MB [Mass/Vol] ng/mL Normal <=3.60 [facility] Comment on above: Performed By: #### C VINOD VINES, CMP ####[facility] [id number] [address]Dr. Bertram Paulino HSTROP 5.1 pg/mL Normal 4.0-51.3 [facility] Comment on above: Result Comment: CUT- OFF POINTS HAVE BEEN ESTABLISHED BASED ON THE FOURTH UNIVERSAL DEFINITIONS OF MYOCARDIAL INFARCTION. THE UPPER REFERENCE LIMIT (URL) OF TROPONIN, DEFINED THE 99TH PERCENTILE OF cTnI DISTRIBUTION IN A REFERENCE POPULATION, HAS BEEN CONFIRMED THE DECISION THRESHOLD FOR IA DIAGNOSIS. Performed By: #### C VINOD VINES, CMP ####[facility] [address] [address]Dr. Bertram Paulino JEAN-PIERRE 36 ng/mL Normal 9-82 [facility] Comment on above: Performed By: #### C VINOD VINES, CMP ####[facility] [id number] [address]Dr. Bertram Paulino CBC AUTO DIFFon 05-04-2022 BASO # 0.0 103/ul Normal 0.0-0.1 [facility] Comment on above: Performed By: #### C BC #### [facility] [address] [place] [address] Dr. Bertram Paulino Basophils/100 WBC (Bld) 0.6 % Normal 0.2-2.0 [facility] Comment on above: Performed By: #### C BC #### [facility] [address] [address] [address] Bertram Paulino EO # 0.1 103/ul Normal 0.0-0.7 [facility] Comment on above: Performed By: #### C BC #### [facility] [address] [address] [address] Bertram Paulino Eosinophils/100 WBC (Bld) 1.7 % Normal 0.9-7.0 [facility] Comment on above: Performed By: #### C BC #### [facility] [address] [address] [address] Bertram Paulino Erythrocyte distribution width (RBC) [Ratio] 13.2 % Normal 11.0-15.0 [facility] Comment on above: Performed By: #### C BC #### [facility] [address] [place] [address] Dr. Bertram Paulino Hematocrit (Bld) [Volume fraction] 40.9 % Normal 36.0-48.0 [facility] Comment on above: Performed By: #### C BC #### [facility] [address] [place] [address] Dr. Bertram Paulino Hemoglobin (Bld) [Mass/Vol] 13.6 g/dL Normal 12.0-16.0 [facility] Comment on above: Performed By: #### C BC #### [facility] [address] [place] [address] Dr. Bertram Paulino IG # 0.02 10e3/ul Normal 0.00-0.03 [facility] Comment on above: Performed By: #### C BC #### [facility] [address] [place] [address] Dr. Bertram Paulino IG % 0.3 % Normal 0.0-0.5 [facility] Comment on above: Performed By: #### C BC #### [facility] [address] [place] [address] Dr. Bertram Paulino LYMPH # 2.5 103/ul Normal 1.2-3.8 [facility] Comment on above: Performed By: #### C BC #### [facility] [address] [place] [address] Dr. Bertram Paulino Lymphocytes/100 WBC (Bld) 36.0 % Normal 20.5-60.0 [facility] Comment on above: Performed By: #### C BC #### [facility] [address] [place] [address] Dr. Bertram Paulino MANUAL DIFF REQ NO Normal [place] Comment on above: Performed By: #### C BC #### [facility] [address] [place] [address] Dr. Bertram Paulino MCH (RBC) [Entitic mass] 29.0 pg Normal 26.7-34.0 [facility] Comment on above: Performed By: #### C BC #### [facility] [address] [place] [address] Dr. Bertram Paulino MCHC (RBC) [Mass/Vol] 33.3 g/dL Normal 29.9-35.2 [facility] Comment on above: Performed By: #### C BC #### [facility] [address] [place] [address] Dr. Bertram Paulino MCV (RBC) [Entitic vol] 87.2 fL Normal 81.0-99.0 [facility] Comment on above: Performed By: #### C BC #### [facility] [address] [place] [address] Dr. Bertram Paulino MONO # 0.5 103/ul Normal 0.3-0.8 [facility] Comment on above: Performed By: #### C BC #### [facility] [address] [place] [address] Dr. Bertram Paulino Monocytes/100 WBC (Bld) 6.9 % Normal 1.7-12.0 [facility] Comment on above: Performed By: #### C BC #### [facility] [address] [place] [address] Dr. Bertram Paulino NEUT # 3.8 103/ul Normal 1.4-6.5 [facility] Comment on above: Performed By: #### C BC #### [facility] [address] [place] [address] Dr. Bertram Paulino Neutrophils/100 WBC (Bld) 54.5 % Normal 43.0-75.0 [facility] Comment on above: Performed By: #### C BC #### [facility] [address] [place] [address] Dr. Bertram Paulino Platelet mean volume (Bld) [Entitic vol] 10.3 fL Normal 9.5-13.5 [facility] Comment on above: Performed By: #### C BC #### [facility] [address] [place] [address] Dr. Bertram Paulino PLT 316 103/ul Normal 150-450 [facility] Comment on above: Performed By: #### C BC #### [facility] [address] [address] [address] Bertram Paulino RBC 4.69 106/ul Normal 4.20-5.40 [facility] Comment on above: Performed By: #### C BC #### [facility] [address] [address] [address] Bertram Paulino WBC 6.9 103/ul Normal 4.0-11.0 [facility] Comment on above: Performed By: #### C BC #### [facility] [address] [place] [address] Dr. Bertram Paulino Covid-19 PCR ([facility])on 04-14 SARS-CoV-2 (COVID-19) RNA KIRT+probe Ql (Unsp spec) Not detected Normal NOT DETECTED [facility] Comment on above: Result Comment: When diagnostic [...] for this test is supported by the [employer] of [employer] and Human Service's declaration that [...] MP, LIPID, TSH #### [facility] [address] [place] [address] Dr. Bertram Paulino ER URINE PROFILEon 2 Bilirubin Ql (U) Negative Normal NEGATIVE [facility] Comment on above: Performed By: #### C MP, LIPID, TSH #### [facility] [address] [place] [address] Dr. Bertram Paulino Clarity (U) CLEAR Normal CLEAR [facility] Comment on above: Performed By: #### C MP, LIPID, TSH #### [facility] [address] [address] [address] Bertram Paulino Color (U) YELLOW Normal YELLOW [facility] Comment on above: Performed By: #### C MP, LIPID, TSH #### [facility] [address] [address] [address] Bertram Paulino ERUAHD A micrscopic examination will be performed if indicated. Normal [facility] Comment on above: Performed By: #### C MP, LIPID, TSH #### [facility] [address] [address] [address] Bertram Paulino Glucose Ql (U) Negative Normal NEGATIVE [facility] Comment on above: Performed By: #### C MP, LIPID, TSH #### [facility] [address] [address] [address] Bertram Paulino Hemoglobin Ql (U) Negative Normal NEGATIVE [facility] Comment on above: Performed By: #### C MP, LIPID, TSH #### [facility] [address] [address] [address] Bertram Paulino Ketones Ql (U) TRACE Abnormal NEGATIVE [facility] Comment on above: Performed By: #### C MP, LIPID, TSH #### [facility] [address] [address] [address] Bertram Paulino LEUKOCYTES Negative Normal NEGATIVE [facility] Comment on above: Performed By: #### C MP, LIPID, TSH #### [facility] [address] [address] [address] Bertram Paulino Nitrite Ql (U) Negative Normal NEGATIVE [facility] Comment on above: Performed By: #### C MP, LIPID, TSH #### [facility] [address] [place] [address] Dr. Bertram Paulino pH (U) 7.5 [pH] Normal 5-9 [facility] Comment on above: Performed By: #### C MP, LIPID, TSH #### [facility] [address] [address] [address] Bertram Paulino SPEC GRAVITY 1.015 Normal 1.005-<=1.025 [facility] Comment on above: Performed By: #### C MP, LIPID, TSH #### [facility] [address] [address] [address] Bertram Paulino UA PROTEIN TRACE Normal NEGATIVE/ TRACE [facility] Comment on above: Performed By: #### C MP, LIPID, TSH #### [facility] [address] [address] [address] Bertram Paulino UR MICRO IND NOT INDICATED Normal [facility] Comment on above: Performed By: #### C MP, LIPID, TSH #### [facility] [address] [address] [address] Bertram Paulino Urobilinogen Qn (U) 0.2 {Yazmin'U}/dL Normal 0.2 - 1. 0 [facility] Comment on above: Performed By: #### C MP, LIPID, TSH #### [facility] [address] [address] [address] Bertram Paulino PROF 14(COMP METB)on 022 Albumin [Mass/Vol] 3.7 g/dL Normal 3.4-5.0 [facility] Comment on above: Performed By: #### C MADM, TSH, CMP ####[facility] [address] [address]DrHazel Paulino Albumin/Globulin [Mass ratio] 1.0 {ratio} Normal [facility] Comment on above: Performed By: #### C MADM, TSH, CMP ####[facility] [address] [address]DrHazel Paulino ALP [Catalytic activity/Vol] 59 U/L Normal 46-116 [facility] Comment on above: Performed By: #### C MADM, TSH, CMP ####[facility] [address] [address]DrHazel Paulino ALT [Catalytic activity/Vol] 55 U/L Normal 14-59 [facility] Comment on above: Performed By: #### C MADM, TSH, CMP ####[facility] [address] [address]Dr. Bertram Paulino Anion gap [Moles/Vol] 13.6 mmol/L Normal [facility] Comment on above: Performed By: #### C MADM, TSH, CMP ####[facility] [address] [address]Dr. Bertram Paulino AST [Catalytic activity/Vol] 33 U/L Normal 15-37 [facility] Comment on above: Performed By: #### C MADM, TSH, CMP ####[facility] [address] [address]Dr. Bertram Paulino Bilirubin [Mass/Vol] 0.7 mg/dL Normal 0.2-1.0 [facility] Comment on above: Performed By: #### C MADM, TSH, CMP ####[facility] [address] [place], [place] [address]Dr. Bertram Paulino Calcium [Mass/Vol] 9.3 mg/dL Normal 8.5-10.1 [facility] Comment on above: Performed By: #### C MADM, TSH, CMP ####[facility] [address] [place], [place] [address]Dr. Bertram Paulino Chloride [Moles/Vol] 102 mmol/L Normal 98-107 [facility] Comment on above: Performed By: #### C MADM, TSH, CMP ####[facility] [address] [place], [place] [address]Dr. Bertram Paulino CO2 [Moles/Vol] 28.1 mmol/L Normal 21.0-32.0 [facility] Comment on above: Performed By: #### C MADM, TSH, CMP ####[facility] [address] [place], [place] [address]Dr. Bertram Paulino Creatinine [Mass/Vol] 0.80 mg/dL Normal 0.55-1.02 [facility] Comment on above: Performed By: #### C MADM, TSH, CMP ####[facility] [address] [place], [place] [address]Dr. Bertram Paulino EGFR-AF MACANESE >60 Normal >=60 [facility] Comment on above: Performed By: #### C MADM TSH, CMP ####[facility] [address] [address]Dr. Bertram Paulino EGFR-NON AF MACANESE >60 Normal >=60 [facility] Comment on above: Performed By: #### C MADKim TSH, CMP ####[facility] [address] [address]Dr. Bertram Pauilno Globulin (S) [Mass/Vol] 3.7 g/dL Normal [facility] Comment on above: Performed By: #### C JASMYN TSH, CMP ####[facility] [address] [address]Dr. Bertram Paulino Glucose [Mass/Vol] 104 mg/dL Normal 74-106 [facility] Comment on above: Performed By: #### C JASMYN TSH, CMP ####[facility] [address] [address]Dr. Bertram Paulino Potassium [Moles/Vol] 3.7 mmol/L Normal 3.5-5.1 [facility] Comment on above: Performed By: #### C JASMYN TSH, CMP ####[facility] [address] [address]Dr. Bertram Paulino Protein [Mass/Vol] 7.4 g/dL Normal 6.4-8.2 [facility] Comment on above: Performed By: #### C MADM TSH, CMP ####[facility] [address] [address]Dr. Bertram Paulino Sodium [Moles/Vol] 140 mmol/L Normal 136-145 [facility] Comment on above: Performed By: #### C MADKim TSH, CMP ####[facility] [address] [address]Dr. Bertram Paulino Urea nitrogen [Mass/Vol] 19.0 mg/dL Critically high 7.0-18.0 [facility] Comment on above: Performed By: #### C MADM TSH, CMP ####[facility] [address] [place], [place] [address]Lf. Bertram Paulino Urea nitrogen/Creatinine [Mass ratio] 23.8 mg/mg Normal [facility] Comment on above: Performed By: #### C MADM, TSH, CMP ####[facility] [address] [place], [place] [address]Nm. Bertram Paulino TSHon 05-04-2022 TSH 1.746 uIU/mL Normal 0.358-3.740 [facility] Comment on above: Performed By: #### C MADM, TSH, CMP ####[facility] [address] [place], [place] [address]Iv. Bertram Paulino B-Type Natriuretic Peptideon 12-28-2021 Natriuretic peptide B (Bld) [Mass/Vol] 15.0 pg/mL Normal 5-100 [facility] Comment on above: Result Comment: PERF ORMED BY: [place] [address] PATHOLOGIST MOUNTING INSPECTOR STORMY MTZ M.D. Performed By: #### B OPERATIONS DEVELOPER #### [address] Basic Metabolic Panelon 12-14 Calcium [Mass/Vol] 9.4 mg/dL Normal 8.2-10.2 [facility] [place] [facility] Comment on above: Performed By: #### C BC, PT, PTT, HEPATIC, BMP, LIPASE #### [facility] [address] [place] [address] Chloride [Moles/Vol] 101 mmol/L Normal 95-114 [facility] Comment on above: Performed By: #### C BC, PT, PTT, HEPATIC, BMP, LIPASE #### [facility] [address] [place] [address] CO2 [Moles/Vol] 21.0 mmol/L Low 22.0-30.0 [facility] Comment on above: Performed By: #### C BC, PT, PTT, HEPATIC, BMP, LIPASE #### [facility] [address] Creatinine [Mass/Vol] 0.54 mg/dL Normal 0.44-1.03 [facility] Comment on above: Performed By: #### C BC, PT, PTT, HEPATIC, BMP, LIPASE #### [facility] [address] Creatinine Clr Calc Pharmacy 153.81 [facility] Comment on above: Performed By: #### C BC, PT, PTT, HEPATIC, BMP, LIPASE #### [facility] [address] Estimated GFR ( Kristen > 60 [facility] Comment on above: Result Comment: GFR estimated reference range: According to KDOQI guidelines, <60 ml/min/1.73m2 is sufficient to diagnose a patient with chronic kidney disease. Performed By: #### C BC, PT, PTT, HEPATIC, BMP, LIPASE #### [address] Estimated GFR (Non- Am > 60 [facility] Comment on above: Performed By: #### C BC, PT, PTT, HEPATIC, BMP, LIPASE #### [address] Glucose [Mass/Vol] 98 mg/dL Normal 70-100 [facility] [place] [facility] Comment on above: Result Comment: [place] Glucose Reference Range is dependent on time and content of last meal. Glucose of more than 200 mg/dL in a nonstressed, ambulatory subject supports the diagnosis of Diabetes Mellitus. ADA recommended reference range Performed By: #### C BC, PT, PTT, HEPATIC, BMP, LIPASE #### [address] Potassium [Moles/Vol] 3.7 mmol/L Normal 3.5-5.1 [facility] Comment on above: Performed By: #### C BC, PT, PTT, HEPATIC, BMP, LIPASE #### [address] Sodium [Moles/Vol] 134 mmol/L Low 136-146 [facility] [place] [facility] Comment on above: Performed By: #### C BC, PT, PTT, HEPATIC, BMP, LIPASE #### [facility] [address] Urea nitrogen [Mass/Vol] 4 mg/dL Low 9-23 [facility] Comment on above: Performed By: #### C BC, PT, PTT, HEPATIC, BMP, LIPASE #### [facility] [address] abdomen pelvis w conon CT abdomen pelvis w con [facility] [address] [place] [address] CT Scan Report Signed Patient: Lu Cancino MR#: [id number] : 1970 Acct:[id number] Age/Sex: 50 / F ADM Date: 12/28/21 Loc: ER Room: Type: [facility] ER Attending Dr: Ordering Provider: Ricardo Ricardo [...] Erasmo Brooks M.D.12/28/2021 8:14 PM Dictation Location: [address] [address] Transcribed By: [facility] 12/28/212013 Dictated By: Erasmo Brooks II, MD 12/28/212006 Signed By: 12/28/212013 Normal [facility] Complete Blood Count Auto Di ffon 12-28-2021 Basophils (Bld) [#/Vol] 0.0 10*3/uL Normal 0.0-0.2 [facility] Comment on above: Result Comment: PERF ORMED BY: [place] [address] PATHOLOGIST MOUNTING INSPECTOR STORMY MTZ M.D. Performed By: #### C BC, PT, PTT, HEPATIC, BMP, LIPASE #### [address] Basophils/100 WBC (Bld) 0.9 % Normal . [facility] Comment on above: Performed By: #### C BC, PT, PTT, HEPATIC, BMP, LIPASE #### [address] Eosinophils (Bld) [#/Vol] 0.0 10*3/uL Normal 0.0-0.45 [facility] Comment on above: Performed By: #### C BC, PT, PTT, HEPATIC, BMP, LIPASE #### [address] [place] [address] [place] Eosinophils/100 WBC (Bld) 0.7 % Normal . [facility] Comment on above: Performed By: #### C BC, PT, PTT, HEPATIC, BMP, LIPASE #### [address] Erythrocyte distribution width (RBC) [Ratio] 14.9 % Normal 11.9-15.3 [facility] Comment on above: Performed By: #### C BC, PT, PTT, HEPATIC, BMP, LIPASE #### [address] Hematocrit (Bld) [Volume fraction] 37.6 % Normal 34.0-46.4 [facility] Comment on above: Performed By: #### C BC, PT, PTT, HEPATIC, BMP, LIPASE #### [address] Hemoglobin (Bld) [Mass/Vol] 12.8 g/dL Normal 11.8-15.4 [facility] Comment on above: Performed By: #### C BC, PT, PTT, HEPATIC, BMP, LIPASE #### [address] Lymphocytes (Bld) [#/Vol] 1.7 10*3/uL Normal 1.00-4.8 [facility] Comment on above: Performed By: #### C BC, PT, PTT, HEPATIC, BMP, LIPASE #### [address] Lymphocytes/100 WBC (Bld) 34.3 % Normal . [facility] Comment on above: Performed By: #### C BC, PT, PTT, HEPATIC, BMP, LIPASE #### [address] MCH (RBC) [Entitic mass] 30.2 pg Normal 24.7-34.3 [facility] Comment on above: Performed By: #### C BC, PT, PTT, HEPATIC, BMP, LIPASE #### [address] MCV (RBC) [Entitic vol] 88.6 fL Normal 80-100 [facility] Comment on above: Performed By: #### C BC, PT, PTT, HEPATIC, BMP, LIPASE #### [address] Mean Corpuscular HGB Conc 34.1 g/dL Normal 32.0-35.0 [facility] Comment on above: Performed By: #### C BC, PT, PTT, HEPATIC, BMP, LIPASE #### [address] Monocytes (Bld) [#/Vol] 0.6 10*3/uL Normal 0.0-0.8 [facility] Comment on above: Performed By: #### C BC, PT, PTT, HEPATIC, BMP, LIPASE #### [address] Monocytes/100 WBC (Bld) 12.1 % Normal . [facility] Comment on above: Performed By: #### C BC, PT, PTT, HEPATIC, BMP, LIPASE #### [address] Neutrophils (Bld) [#/Vol] 2.5 10*3/uL Normal 1.8-7.7 [facility] Comment on above: Performed By: #### C BC, PT, PTT, HEPATIC, BMP, LIPASE #### [address] Neutrophils/100 WBC (Bld) 52.0 % Normal . [facility] Comment on above: Performed By: #### C BC, PT, PTT, HEPATIC, BMP, LIPASE #### [address] Nucleated RBC/100 WBC (Bld) [Ratio] 0.0 % Normal 0-0.5 [facility] Comment on above: Performed By: #### C BC, PT, PTT, HEPATIC, BMP, LIPASE #### [address] Platelet mean volume (Bld) [Entitic vol] 7.8 fL Normal 6.3-10.7 [facility] Comment on above: Performed By: #### C BC, PT, PTT, HEPATIC, BMP, LIPASE #### [facility] [address] [place] [address] Platelets (Bld) [#/Vol] 458 10*3/uL High 150-450 [facility] Comment on above: Performed By: #### C BC, PT, PTT, HEPATIC, BMP, LIPASE #### [address] RBC (Bld) [#/Vol] 4.25 10*6/uL Normal 3.60-5.00 [facility] Comment on above: Performed By: #### C BC, PT, PTT, HEPATIC, BMP, LIPASE #### [address] WBC (Bld) [#/Vol] 4.9 10*3/uL Normal 4.5-11.0 [facility] [place] [facility] Comment on above: Performed By: #### C BC, PT, PTT, HEPATIC, BMP, LIPASE #### [address] ECG 12 lead ECGon 12-28-2021 ECG 12 lead [place] [address] Electrocardiograph Report Signed Patient: Lu Cancino MR#: [id number] : 1970 Acct:[id number] Age/Sex: 50 / F ADM Date: 12/28/21 Loc: ER Room: Type: [facility] ER Attending Dr: Ordering Provider: Ricardo Ricardo [...] sinus rhythm Confirmed by Ricardo RICARDO DO ([id number]) on 12/28/2021 9:15:05 PM Referred By: Electronically Signed By:Ricardo RICARDO DO Transcribed By: MUS Signed By Ricardo Ricardo, 0 12/28/212114 [facility] HCG,Urineon 12-28-2021 Beta HCG ( test) Ql (U) Negative [facility] Comment on above: Order Comment: Name Collection Type:: Clean-Voided Midstream Result Comment: PERF ORMED BY: [place] [address] PATHOLOGIST MOUNTING INSPECTOR STORMY MTZ M.D. Performed By: #### C BC, PT, PTT, HEPATIC, BMP, LIPASE #### [facility] [address] [place] [address] Hepatic Panelon 12-28-2021 Albumin [Mass/Vol] 4.0 g/dL Normal 3.2-5.5 [facility] [place] [facility] Comment on above: Performed By: #### C BC, PT, PTT, HEPATIC, BMP, LIPASE #### [facility] [address] [place] [address] Albumin/Globulin [Mass ratio] 1.6 {ratio} [facility] Comment on above: Performed By: #### C BC, PT, PTT, HEPATIC, BMP, LIPASE #### [facility] [address] [place] [address] ALP [Catalytic activity/Vol] 38 U/L Normal 32-92 [facility] Comment on above: Performed By: #### C BC, PT, PTT, HEPATIC, BMP, LIPASE #### [facility] [address] [place] [address] ALT [Catalytic activity/Vol] 44 U/L Normal 10-60 [facility] Comment on above: Performed By: #### C BC, PT, PTT, HEPATIC, BMP, LIPASE #### [facility] [address] [place] [address] AST [Catalytic activity/Vol] 38 U/L Normal 10-42 [facility] Comment on above: Performed By: #### C BC, PT, PTT, HEPATIC, BMP, LIPASE #### [address] Bilirubin [Mass/Vol] 0.8 mg/dL Normal 0.3-1.2 [facility] Comment on above: Performed By: #### C BC, PT, PTT, HEPATIC, BMP, LIPASE #### [address] Bilirubin,Indirect 0.7 mg/dL Normal [facility] [place] [facility] Comment on above: Performed By: #### C BC, PT, PTT, HEPATIC, BMP, LIPASE #### [facility] [address] Bilirubin.indirect [Mass/Vol] 0.1 mg/dL Normal 0.0-0.4 [facility] Comment on above: Performed By: #### C BC, PT, PTT, HEPATIC, BMP, LIPASE #### [address] Globulin (S) [Mass/Vol] 2.5 g/dL Normal [facility] Comment on above: Performed By: #### C BC, PT, PTT, HEPATIC, BMP, LIPASE #### [address] Protein [Mass/Vol] 6.5 g/dL Normal 6.1-7.9 [facility] [place] [facility] Comment on above: Performed By: #### C BC, PT, PTT, HEPATIC, BMP, LIPASE #### [address] Lipaseon 12-28-2021 Lipase [Catalytic activity/Vol] 29.0 U/L Normal 22-51 [facility] Comment on above: Result Comment: PERF ORMED BY: [place] [address] PATHOLOGIST MOUNTING INSPECTOR STORMY MTZ M.D. Performed By: #### C BC, PT, PTT, HEPATIC, BMP, LIPASE #### [address] Partial Thromboplastin Timeo n 12-28-2021 aPTT Coag (Bld) [Time] 30.4 s Normal 25.1-36.5 [facility] Comment on above: Result Comment: PERF ORMED BY: [place] [address] PATHOLOGIST MOUNTING INSPECTOR STORMY MTZ M.D. Performed By: #### C BC, PT, PTT, HEPATIC, BMP, LIPASE #### [facility] [address] [place] [address] Prothrombin Time INRon 12-28 INR Coag (PPP) [Relative time] 1.0 {INR} Normal [facility] Comment on above: Result Comment: INR Therapeutic [...] BC, PT, PTT, HEPATIC, BMP, LIPASE #### [address] PT Coag (PPP) [Time] 11.8 s Normal 9.0-12.9 [facility] Comment on above: Performed By: #### C BC, PT, PTT, HEPATIC, BMP, LIPASE #### [facility] [address] [place] [address] Urinalysison 12-28-2021 Appearance (U) Clear Normal Clear [facility] Comment on above: Order Comment: Name Collection Type:: Clean-Voided Midstream Performed By: #### C BC, PT, PTT, HEPATIC, BMP, LIPASE #### [address] Bilirubin,Urine Negative Normal Negative [facility] Comment on above: Order Comment: Name Collection Type:: Clean-Voided Midstream Performed By: #### C BC, PT, PTT, HEPATIC, BMP, LIPASE #### [address] Color (U) Yellow Normal Yellow [facility] Comment on above: Order Comment: Name Collection Type:: Clean-Voided Midstream Performed By: #### C BC, PT, PTT, HEPATIC, BMP, LIPASE #### [facility] [address] [place] [address] Glucose Ql (U) Normal Normal Normal [facility] Comment on above: Order Comment: Name Collection Type:: Clean-Voided Midstream Performed By: #### C BC, PT, PTT, HEPATIC, BMP, LIPASE #### [address] Ketones Ql (U) Negative Normal Negative [facility] Comment on above: Order Comment: Name Collection Type:: Clean-Voided Midstream Performed By: #### C BC, PT, PTT, HEPATIC, BMP, LIPASE #### [address] Leukocyte esterase Test strip Ql (U) Negative Normal Negative [facility] Comment on above: Order Comment: Name Collection Type:: Clean-Voided Midstream Performed By: #### C BC, PT, PTT, HEPATIC, BMP, LIPASE #### [address] Nitrite,Urine Negative Normal Negative [facility] Comment on above: Order Comment: Name Collection Type:: Clean-Voided Midstream Performed By: #### C BC, PT, PTT, HEPATIC, BMP, LIPASE #### [address] Occult Blood,Urine Negative Normal Negative [facility] [place] [facility] Comment on above: Order Comment: Name Collection Type:: Clean-Voided Midstream Performed By: #### C BC, PT, PTT, HEPATIC, BMP, LIPASE #### [address] pH (U) 7.5 [pH] Normal 5.0-9.0 [facility] Comment on above: Order Comment: Name Collection Type:: Clean-Voided Midstream Performed By: #### C BC, PT, PTT, HEPATIC, BMP, LIPASE #### [address] Protein,Urine Negative Normal Negative [facility] Comment on above: Order Comment: Name Collection Type:: Clean-Voided Midstream Performed By: #### C BC, PT, PTT, HEPATIC, BMP, LIPASE #### [address] Specificy [place],Urine 1.004 Normal 1.001-1.030 [facility] Comment on above: Order Comment: Name Collection Type:: Clean-Voided Midstream Performed By: #### C BC, PT, PTT, HEPATIC, BMP, LIPASE #### [address] Urobilinogen,Urine Normal Normal Normal [facility] Comment on above: Order Comment: Name Collection Type:: Clean-Voided Midstream Performed By: #### C BC, PT, PTT, HEPATIC, BMP, LIPASE #### [address] XR chest 1V portableon 12-28 XR chest 1V portable [place] [address] XRay Report Signed Patient: Lu Cancino MR#: [id number] : 1970 Acct:[id number] Age/Sex: 50 / F ADM Date: 12/28/21 [...] Erasmo Brooks M.D.12/28/2021 6:18 PM Dictation Location: [place] [address] Transcribed By: [facility] 12/28/211817 Dictated By: Erasmo Brooks II, MD 12/28/211816 Signed By: 12/28/211817 Normal [facility] ANTI DNAon 04-09-2019 ANTI DNA <1:10 Normal <1:10 [facility] Comment on above: Performed By: #### 1 0097, [id number], 60861 #### [facility] [address] [place] [address], [facility] ANTI-ENAon 04-09-2019 ANTI SM Negative Normal NEG,NEGATIVE, Neg [facility] Comment on above: Performed By: #### 1 0097, 83824, 26541 #### [facility] [address] [place] [address], [facility] ANTI SM/ANTIRNP Negative Normal NEG,NEGATIVE , Neg [facility] Comment on above: Performed By: #### 1 0097, 03149, 40671 #### [facility] [address] [place] [address], [facility] C REACTIVE PROTEINon 019 CRP mass conc 8.0 mg/L High 0.0-7.0 [facility] Comment on above: Performed By: #### 6 1405 #### [facility] [address] [facility] CHROMATIN ANTIBODY, IGG 2004 287on 04-09-2019 CHROMATIN ANTIBODY, IGG 4 Units Normal 0-19 [facility] Comment on above: Result Comment: INTE RPRETIVE [...] when antibody levels are high. Performed by [facility], [address] [place] [address] www.[email or web address], Sam Brito MD - Lab. Director CYCLIC CITRULLINATED PEPTIDE [place] [id number] 04-09-2019 CYCLIC CIT PEP 5 Units Normal 0-19 [facility] Comment on above: Result Comment: INTE RPRETIVE [...] be monitored and testing repeated. Performed by [facility], [address] [place] [address] www[email or web address], Sam Brito MD - Lab. Director SEDIMENTATION RATEon 019 SED RATE 34 mm/hr High 0-20 [facility] Comment on above: Performed By: #### 5 [id number] #### [facility] [address] [place] [address], [facility] SJOGRENS ANTIBODIESon 2018 SS-A Negative Normal NEG,NEGATIVE, Neg [facility] Comment on above: Performed By: #### 1 0097, 61698, 65036 #### [facility] [address] [facility] [place] [address], [facility] SS-B Negative Normal NEG,NEGATIVE, Neg [facility] Comment on above: Performed By: #### 1 0097, 63021, 98238 #### [facility] [place] [address], [facility] Vital Signs Date Time Vital Sign Value Performing Clinician Facility 08-26-2023 13:10-0400 Body height 157.48 cm Selene Martinez Other [facility] Other 08-26-2023 13:10-0400 Body mass index (BMI) [Ratio] 49.01 kg/m2 Selene Changmond Other [facility] Other 08-26-2023 13:10-0400 Body temperature 97.9 [degF] Selene Changmond Other [facility] Other 08-26-2023 13:10-0400 Body weight 121.56 kg Selene Changmond Other [facility] Other 08-26-2023 13:10-0400 Diastolic blood pressure 71 mm[Hg] Selene Martinez Other [facility] Other 08-26-2023 13:10-0400 Respiratory rate 18 /min Selene Martinez Other [facility] Other 08-26-2023 13:10-0400 SaO2% (BldA) [Mass fraction] 99 % Selene Changmond Other [facility] Other 08-26-2023 13:10-0400 Systolic blood pressure 142 mm[Hg] Selene Changmond Other [facility] Other 05-31-2022 18:00-0400 Body height 157.48 cm Rose De Other [facility] Other 05-31-2022 18:00-0400 Body mass index (BMI) [Ratio] 45.72 kg/m2 Rose De Other [facility] Other 05-31-2022 18:00-0400 Body temperature 98.3 [degF] Rose De Other [facility] Other 05-31-2022 18:00-0400 Body weight 113.4 kg Rose De Other [facility] Other 05-31-2022 18:00-0400 Respiratory rate 18 /min Rose De Other [facility] Other 05-31-2022 18:00-0400 SaO2% (BldA) [Mass fraction] 95 % Rose De Other [facility] Other 09-10-2021 13:45-0400 Body height 157.48 cm Selene Martinez Other [facility] Other 09-10-2021 13:45-0400 Body mass index (BMI) [Ratio] 45.72 kg/m2 Selene Changmond Other [facility] Other 09-10-2021 13:45-0400 Body temperature 96.8 [degF] Selene Changmond Other [facility] Other 09-10-2021 13:45-0400 Body weight 113.4 kg Selene Changmond Other [facility] Other 09-10-2021 13:45-0400 Respiratory rate 18 /min Selene Changmond Other [facility] Other 09-10-2021 13:45-0400 SaO2% (BldA) [Mass fraction] 97 % Selene Martinez Other [facility] Other Encounters Encounter Date Encounter Type Care Provider Facility Start: 06-30-2024 End: 06-30-2024 Letter encounter [facility] Start: 06-13-2024 End: 06-13-2024 ambulatory EDDY LORENZANA Not Available Start: 05-28-2024 End: 05-28-2024 ambulatory JEREMIAH HANSEN Not Available Start: 05-28-2024 End: 05-28-2024 ambulatory MAGDIEL AICHHOLZ Not Available Start: 05-22-2024 End: 05-22-2024 ambulatory MAGDIEL AICHHOLZ Not Available Start: 05-09-2024 End: 05-09-2024 ambulatory MAGDIEL AICHHOLZ Not Available Start: 04-01-2024 End: 04-01-2024 ambulatory EDDY LORENZANA Not Available Start: 03-07-2024 End: 03-07-2024 ambulatory JOSH PARKINSON Not Available Start: 02-01-2024 End: 02-01-2024 ambulatory MAGDIEL AICHHOLZ Not Available Start: 01-08-2024 End: 01-08-2024 ambulatory KRISTEN BRONSON Not Available Start: 12-21-2023 End: 12-21-2023 ambulatory EDDY LORENZANA Not Available Start: 12-20-2023 Refill Eddy valentino MD Work Phone: [facility] Comment on above: Myalgia; Numbness and tingling; Weakness Start: 12-19-2023 End: 12-19-2023 ambulatory EBEN Kim WILLETTOR-NOSSEK Not Available Start: 12-15-2023 End: 12-15-2023 Chart abstracting Kristen Bronson [facility] Work Phone: [facility] Comment on above: Bipolar II disorder, most recent episode major depressive ([facility]) Start: 12-15-2023 End: 12-15-2023 ambulatory KRISTEN BRONSON Not Available Start: 11-23-2023 End: 11-23-2023 ambulatory EDDY LORENZANA Not Available Start: 11-02-2023 End: 11-02-2023 ambulatory EDDY LORENZANA Not Available Start: 09-28-2023 End: 09-28-2023 ambulatory EDDY LORENZANA Not Available Start: 08-26-2023 End: 08-26-2023 ambulatory Selenevanesa Martinez Other [facility] Other Start: 08-26-2023 Office outpatient vi sit 15 minutes Selene Martinez [facility] [place] Start: 05-23-2023 End: 05-23-2023 ambulatory FRACISCO Alvarez [facility] Start: 04-11-2023 Letter encounter Lili black Start: 03-21-2023 End: 03-22-2023 ambulatory MICHELL MAGDIEL LUIRuiTOR Facility:[facility] Start: 01-23-2023 End: 01-23-2023 ambulatory THERAPEUTIC RADIOLOGIST MAGDIEL LUIRuiTOR Facility:[facility] Start: 01-12-2023 End: 01-13-2023 ambulatory THERAPEUTIC RADIOLOGIST MAGDIEL AICRuiJEANNIEZ Facility:[facility] Start: 01-12-2023 Letter encounter Lili black Start: 08-09-2022 End: 08-10-2022 ambulatory SLADE FONG . Facility:[facility] Start: 07-19-2022 End: 07-20-2022 ambulatory THERAPEUTIC RADIOLOGIST MAGDIEL AICRuiJEANNIEZ Facility:[facility] Start: 07-15-2022 End: 07-16-2022 ambulatory THERAPEUTIC RADIOLOGIST MAGDIEL AICHJEANNIEZ Facility:[facility] Start: 07-10-2022 End: 07-11-2022 ambulatory THERAPEUTIC RADIOLOGIST MAGDIEL AICHHOLZ Facility:[facility] Start: 07-05-2022 End: 07-05-2022 Phys/qhp telephone evaluation 21-30 min Lucía Calderon APRN-THERAPEUTIC RADIOLOGIST Work Phone: [facility] Comment on above: Chest pain, unspecif ied type (Primary Dx); [id number] condition Start: 07-05-2022 End: 07-08-2022 ambulatory UNKNOWN PROVIDER Facility:[facility] Start: 06-30-2022 End: 07-01-2022 ambulatory THERAPEUTIC RADIOLOGIST MAGDIEL AICHHOLZ Facility:[facility] Start: 06-15-2022 End: 06-16-2022 ambulatory THERAPEUTIC RADIOLOGIST MAGDIEL HOLT Facility:[facility] Start: 06-04-2022 End: 06-04-2022 ambulatory THERAPEUTIC RADIOLOGIST MAGDEIL HOLT Facility:[facility] Start: 05-31-2022 End: 05-31-2022 ambulatory Rose De Other [facility] Other Start: 05-31-2022 Office outpatient vi sit 25 minutes Rose De [facility] [place] Start: 05-15-2022 End: 05-15-2022 ambulatory THERAPEUTIC RADIOLOGIST MAGDIEL HOLT Facility:[facility] Start: 05-04-2022 End: 05-04-2022 ambulatory ALEJANDRA PHELPS . Facility:[facility] Start: 04-04-2022 Letter encounter Saadia laura Start: 03-24-2022 End: 03-24-2022 Phys/qhp telephone evaluation 11-20 min [facility] Comment on above: Shortness of breath (Primary Dx); [id number] condition Start: 12-28-2021 End: 12-28-2021 Emergency department patient visit Ricardo Ricardo Facility:[facility] Start: 09-10-2021 (URG) Urgent Care Visit Selene cui [facility] [place] Plan of Treatment Date Care Activity Detail Author Start: 08-13-2024 Influenza vaccination Influ[facility] Start: 12-25-2023 End: 12-25-2023 Clinical Support 12/25/2023 2:00 PM EST Clinical Support [facility] [address] [place] [id number] Kristen Bronson, [facility] [address] [place] [address] [facility] Start: 12-21-2023 End: 12-21-2023 Patient encounter procedure 12/21/2023 2:20 PM EST Office Visit [facility] [address] [place] [id number] Eddy Lorenzana MD [address] [facility] [address] [id number] [facility] Start: 12-19-2023 End: 12-19-2023 Patient encounter procedure 12/19/2023 10:00 AM EST Office Visit [facility] [address] [facility] [address] [place] [address] Eben Duque, IT SECURITY ADMINISTRATOR-[facility] [address] [facility] [address] [place] [address] [facility] Start: 12-15-2023 End: 12-15-2023 Clinical Support 12/15/2023 1:00 PM EST Clinical Support [facility] [address] [facility] [address] [place] [id number] Kristen Bronson, [facility] [address] [facility] [address] [place] [address] [facility] Start: 07-14-2023 COVID-19 Vaccine ( season) COVID-19 Vaccine ( season) [facility] Start: 07-14-2023 Influenza vaccination Influenza Vaccine (#1) [facility] Start: 08-13-2022 Influenza vaccination Influenza Vaccine (#1) [facility] Start: 07-05-2022 End: 07-05-2022 Telemedicine consultation with patient 07/05/2022 Telemedicine Rheumatology Lucía Calderon, IT SECURITY ADMINISTRATOR-THERAPEUTIC RADIOLOGIST [address] [place], [place] [id number] [facility] Start: 2019 Measurement of occult blood in single stool specimen FIT [facility] Start: 2019 Screening for malignant neoplasm of breast Mammography [facility] Start: 2019 Screening for malignant neoplasm of colon CRC Screening [facility] Start: 2019 Shingles (RZV) Vaccine (1 of 2) Shingles (RZV) Vaccine (1 of 2) [facility] Start: 2014 Cholesterol [Mass/volume] in Serum or Plasma Cholesterol [facility] Start: 2014 Screening for malignant neoplasm of colon [facility] Start: 2009 Screening for malignant neoplasm of breast [facility] Start: 1999 Screening for malignant neoplasm of cervix [facility] Start: 1990 Screening for malignant neoplasm of cervix Pap Smear [facility] Start: 1988 Hepatitis A (HAV) Vaccine (optional start 19+ years) Hepatitis A (HAV) Vaccine (optional start 19+ years) [facility] Start: 1988 Hepatitis B vaccination Hepatitis B (HBV) Vaccine (1 of 3 - 19+ 3-dose series) [facility] Start: 1987 Hepatitis C screening Hepatitis C Antibody [facility] Start: 1987 Tetanus + diphtheria + acellular pertussis vaccine (product) Tdap Booster [facility] Start: 1984 HIV screening HIV Test [facility] Start: 1974 COVID-19 Vaccine (#1) COVID-19 Vaccine (#1) [facility] Start: 1974 COVID-19 Vaccine (1) COVID-19 Vaccine (1) [facility] Start: 06-28-1970 COVID-19 Vaccine (#1) COVID-19 Vaccine (#1) [facility] Start: 1969 Screening for malignant neoplasm of colon [facility] Payers Date Payer Category Payer Self-pay 2019 Medicaid [id number] 1969 Unknown [id number] 0.1.010075.3.579.2.593 1969 Unknown [id number] ..[id number] 0.1.316658.3.579.2.593 1969 Unknown [id number] ..[id number] 0.1.505668.3.579.2.593 1969 Unknown [id number] ..[id number] 0.1.191549.3.579.2.593 1969 Unknown [id number] .16.84 0.1.482268.3.579.2.593 1969 Unknown [id number] 2.16.84 0.1.236855.3.579.2.593 1969 Unknown [id number] .16.84 0.1.924254.3.579.2.593 1969 Unknown [id number] .16.84 0.1.458288.3.579.2.593 1969 Unknown [id number] .16.84 0.1.348337.3.579.2.593 1969 Unknown [id number] ..[id number] 0.1.791424.3.579.2.593 1969 Unknown [id number] ..[id number] 0.1.315115.3.579.2.593 1969 Unknown [id number] ..[id number] 0.1.587280.3.579.2.593 1969 Unknown [id number] .16. 840.1.284686.3.579.2.732 1969 Unknown [id number] ..[id number] 0.1.050667.3.579.2.1259 1969 Unknown [id number] ..[id number] 0.1.406343.3.579.2.1259 1969 Unknown [id number] .16.84 0.1.480255.3.579.2.1259 1969 Unknown [id number] .16.84 0.1.240366.3.579.2.1259 1969 Unknown [id number] .16.84 0.1.904078.3.579.2.1259 1969 Unknown [id number] .16.84 0.1.237715.3.579.2.1259 1969 Unknown [id number] .16.84 0.1.059057.3.579.2.1259 1969 Unknown [id number] 2.16.84 0.1.018228.3.579.2.9 1969 Unknown [id number] 2.16.84 0.1.541595.3.579.2.1259 1969 Unknown [id number] 2.16.84 0.1.932234.3.579.2.9 1969 Unknown [id number] 2.16.84 0.1.179440.3.579.2.9 1969 Unknown [id number] 2.16.84 0.1.437190.3.579.2.9 1969 Unknown [id number] 2.16.84 0.1.240671.3.579.2.9 1969 Unknown [id number] 2.16.84 0.1.606523.3.579.2.9 1969 Unknown [id number] 2.16.84 0.1.550770.3.579.2.1259 1969 Unknown [id number] 2.16.840 .1.379013.3.579.2.9 1969 Unknown [id number] 2.16.840 .1.160727.3.579.2.1259 1959 Unknown [id number] 2.1 6.840.1.139271.19 1959 Unknown [id number] Unknown [id number] 2.16.8 40.1.254023.3.579.2.531 Social History Date Type Detail Facility Start: 01-10-2022 End: 07-27-2023 Tobacco smoking status UTIS Never smoked tobacco [facility] Other Start: 01-10-2022 End: 07-27-2023 Tobacco use and exposure Smokeless tobacco non-user [facility] Start: 03-24-2022 End: 07-05-2022 Alcohol intake Ex-drinker (finding) [facility] Start: 1970 Sex Assigned At Not on file [facility] Start: 07-05-2022 End: 11-24-2023 Sex Assigned At [facility] [employer] Other Start: 11-28-2023 End: 12-19-2023 Alcohol intake Lifetime non-drinker (finding) [facility] Start: 07-05-2022 End: 11-24-2023 History of Social function [facility] Start: 12-19-2023 Alcohol Comment caffiene- 3 cu ps either coffee, tea or pop [facility] Clinical Notes 09-10-2021 to 12-15-2023 Kristen Alvarez Bronson, [facility] - 12/15/2023 1:00 PM EST Note [...] and exhibiting a general state of irritability. FDC goals Reduce overall level, frequency and intensity [...] medication as prescribed. documented in this encounter [facility] 08-26-2023 Evaluation note Encounter Date Diagnosis Assessment Notes Aug, Left sided sciatica (ICD-10 - M54.32) Drink plenty fluids, get plenty of rest. Continue home medications as prescribed. Take the prednisone as prescribed until gone. Limit your lifting and bending for the next few days. Follow-up with your family physician next week for recheck. [facility] Other 07-11-2023 NoteSubjective Patient ID: Lu Cancino [...] she was taking vitamin supplementation and [employer] [place] energy drinks, but that she had been [...] about 6 months (around 11/23/2023). Radha Catalan, [facility] History of Present illness Narrative* Lucía Calderon, BESS-THERAPEUTIC RADIOLOGIST - 07/05/2022 1:13 PM EDT Images from the original note were not included. Documentation: Mode: Telephone Patient Patient Work Phone: Patient Cell Preferred phone: [phone] Consent: I confirmed patient understanding of the risks and benefits of telehealth visits and obtained consent to proceed with the telehealth visit. Location of Patient: Home of patient Post Covid Follow Up Telemedicine Visit Note: CC: f/u of [id number] condition Recall: Lu Cancino is a 51 [...] Also has neuropathy Patient still resides near [place], [place] PMH/PSH: Reviewed 07/05/22 Allergies: Per list, [...] Post Covid Nurse Practitioner documented in this [id number] Evaluation note* Encounter Date Diagnosis Assessment Notes [...] understanding and is agreeable to treatment plan [facility] Other 05-12-2022 History of Present illness Narrative* Lucía Calderon APRN-CNP - 03/24/2022 10:03 AM EDT Images from the original note were not included. Documentation: Mode: Telephone Patient Patient Work Phone: Patient Cell Preferred phone: [phone] Consent: I confirmed patient understanding of the risks and benefits of telehealth visits and obtained consent to proceed with the telehealth visit. Location of Patient: Home of patient Post Covid Follow Up Telemedicine Visit Note: CC: f/u of Vycx-PRYDF-05 condition Recall: Lu Cancino is a 51 [...] Post Covid Nurse Practitioner documented in this [id number] Evaluation note* Encounter Date Diagnosis Assessment Notes [...] Patient care instructions given in writting by [facility] document. Additional time spent conducting pre-visit phone call, screening for symptoms, instructions on social distancing, application and removal of PPE, and cleaning of examination room, equipment and supplies was preformed. Patient education given for testing methodology and results. Patient care instructions given in writting by [facility] document. [facility] Other Evaluation note* Diagnosis Shortness of breath- Primary [id number] condition [facility] Diagnosis Chest pain, unspecified type- Primary [id number] condition [facility]* Diagnosis Myalgia Unspecified myalgia and myositis Numbness and tingling Disturbance of skin sensation Weakness Other malaise and fatigue documented [facility] this [facility]* Diagnosis Bipolar II disorder, most recent episode major depressive ([facility]) Other bipolar disorders documented in this encounter [facility] Narrative - Reported* Type Description Date Medical History Seasonal Allergies Medical History rheumatoid arthritis Surgical History C section X2 Hospitalization History see above [facility] Other History general Narrative - Reported* Type Description Date Medical History Seasonal Allergies Medical History rheumatoid arthritis Medical History neuropathy Surgical History C section X2 Hospitalization History Covid 2021 [facility] Other Summary Purpose Family History No Family [...] section and content) DATE CREATED AUTHOR 04/18/2019 [facility] DATE CREATED AUTHOR AUTHOR'S ORGANIZ ATION 12/17/2022 [facility] DATE CREATED AUTHOR AUTHOR'S ORGANIZ ATION 03/24/2023 [facility] DATE CREATED AUTHOR AUTHOR'S ORGANIZ ATION 04/21/2023 [facility] DATE CREATED AUTHOR AUTHOR'S ORGANRAY ATION 05/25/2023 [facility] DATE CREATED AUTHOR AUTHOR'S ORGANIZ ATION 06/16/2024 [facility] Reason for Visit (unrecogniz ed section and [...] BE BASED ON THE PRIMARY CLINICAL RECORDS. [employer] [facility]. provides no warranty or guarantee of the accuracy or completeness of information in this document.
[2024-07-15 09:07] LABS: Age Gdln ACOG Testing Note (.); HPV Aptima Negative (Negative); IGP, Aptima HPV, rfx 16/18,45 Note (.)
== END 2024-07-10 19:57 | disposition home or self-care (01) ==
LOC: LAB 19:56
PROVIDERS: PCP Nurse Practitioner; Visit Provider Physician Assistant
DX: Z01.419 Encounter for gynecological examination (general) (routine) without abnormal findings (principal)
CPT/HCPCS: 87624; 88175

== ENCOUNTER 2024-10-15 14:39 | Emergency (ER) | payer OTHER, SELFPAY ==
[2024-10-15 14:49] VITALS: BP 124/82; PULSE 74; TEMP 37.1; O2SAT 96; BMI 49.4
--- NOTE | 2024-10-15 14:53 | ED.GENADUL1 ---
HPI HPI - General Adult General Chief complaint: Dental/Oral Stated complaint: dental pain Time Seen by Provider: 10/15/24 14:40 History of Present Illness HPI narrative: Patient presents ED complaining of right upper dental pain. She has chronic issues with her teeth severe dental caries. She said she knows that she needs all of her top teeth pulled however she cannot really get into a dentist or oral surgeon that can do it. She said she had an appointment before but they would not do anything because it was too infected. Now she said nobody will call her back. She has been in the ER before for this. She does take naltrexone and does not like taking opiate medicines so she is requesting a dental block. Patient has no allergies to penicillin. No drooling no trismus no tongue swelling or elevation. No fevers. Related Data Home Medications ?Medication ?Instructions ?Recorded ?Confirmed fluoxetine 40 mg capsule 40 mg PO DAILY 05/15/23 10/15/24 furosemide 20 mg tablet 10 mg PO DAILY 05/15/23 10/15/24 gabapentin 100 mg capsule 100 mg PO QPM 05/15/23 10/15/24 nabumetone 500 mg tablet 500 mg PO BID 05/15/23 10/15/24 pantoprazole 40 mg tablet,delayed 40 mg PO DAILY 05/15/23 10/15/24 release biotin 10,000 mcg capsule 10,000 mcg PO BID 06/16/24 10/15/24 magnesium oxide 400 mg (241.3 mg 400 mg PO QPM 06/16/24 10/15/24 magnesium) tablet modafinil 100 mg tablet (Provigil) 100 mg PO DAILY 06/16/24 10/15/24 montelukast 10 mg tablet 10 mg PO QPM 06/16/24 10/15/24 naltrexone 1.5 mg capsule mg PO 06/16/24 Previous Rx's ?Medication ?Instructions ?Recorded benzocaine 20 %-menthol 0.1 %-zinc 1 ea mucous membrane BID #5.1 grams 06/16/24 chloride 0.15 % mucosal gel (Orajel 3X Mouth Sores) nystatin 100,000 unit/gram topical 1 applic topical BID 2 weeks #30 10/15/24 powder grams penicillin V potassium 500 mg 500 mg PO Q6H 10 days #40 tabs 10/15/24 tablet Allergies Allergy/AdvReac Type Severity Reaction Status Date / Time influenza A (H1N1) virus Allergy Severe Anaphylaxis Verified 10/15/24 14:50 vaccine m-chani-split 2008 (From influenza A (H1N1)) Tetanus Vaccines and Toxoid Allergy Severe Anaphylaxis Verified 10/15/24 14:50 Opioid HPI Opioid Management Most Recent Opioid Data: No Data to Display Review of Systems ROS Status of ROS 10 or more systems reviewed and unremarkable except as noted in history and below PFS PFS Social History Smoking status: Never smoker Little interest or pleasure in doing things: not at all Feeling down, depressed, or hopeless: not at all Exam Narrative Exam Narrative: General: alert, no acute distress Cardiovascular: regular rate and rhythm, normal peripheral perfusion. Respiratory: Lungs CTA, respirations non labored. Extremities: no deformity, no trauma. Neurological: oriented x 4, LOC appropriate for age. Diffuse dental caries. Swelling in the gums on the right upper teeth around tooth #2 and 3. No obvious abscess that could be drained. No evidence of foreign body. Constitutional Vital Signs, click to edit/add: Last Vital Signs Temp 98.7 F 10/15/24 14:49 Pulse 74 10/15/24 14:49 Resp 16 10/15/24 14:49 BP 124/82 10/15/24 14:49 Pulse Ox 96 10/15/24 14:49 O2 Del Method Room Air 10/15/24 14:49 Course Vital Signs Vital signs: Vital Signs Temperature 98.7 F 10/15/24 14:49 Pulse Rate 74 10/15/24 14:49 Respiratory Rate 16 10/15/24 14:49 Blood Pressure 124/82 10/15/24 14:49 Pulse Oximetry 96 10/15/24 14:49 Oxygen Delivery Method Room Air 10/15/24 14:49 Temperature 98.7 F 10/15/24 14:49 Pulse Rate 74 10/15/24 14:49 Respiratory Rate 16 10/15/24 14:49 Blood Pressure 124/82 10/15/24 14:49 Pulse Oximetry 96 10/15/24 14:49 Oxygen Delivery Method Room Air 10/15/24 14:49 Medical Decision Making MDM Narrative Medical decision making narrative: Patient will be sent home with oral antibiotics, penicillin. Patient also complained of a rash under both breasts and states that she has nystatin cream for it however she prefers trying the powder. I wrote her prescription for nystatin powder. Follow-up with a dentist outpatient otherwise return to ED if worsening symptoms or further concerns. Patient comfortable with care plan for home Differential Diagnosis Differential Diagnosis: Dental abscess, dental caries, facial abscess, facial cellulitis Discharge Plan Discharge Chief Complaint: Dental/Oral Clinical Impression: Dental caries, Dental abscess Patient Disposition: Home, Self-Care Time of Disposition Decision: 15:14 Condition: Good Mode of Transportation: Private Vehicle Prescriptions / Home Meds: New penicillin V potassium 500 mg tablet 500 mg PO Q6H 10 Days Qty: 40 0RF nystatin 100,000 unit/gram powder 1 applic topical BID 14 Days Qty: 30 0RF No Action fluoxetine 40 mg capsule 40 mg PO DAILY pantoprazole 40 mg tablet,delayed release (DR/EC) 40 mg PO DAILY furosemide 20 mg tablet 10 mg PO DAILY gabapentin 100 mg capsule 100 mg PO QPM nabumetone 500 mg tablet 500 mg PO BID modafinil [Provigil] 100 mg tablet 100 mg PO DAILY magnesium oxide 400 mg (241.3 mg magnesium) tablet 400 mg PO QPM montelukast 10 mg tablet 10 mg PO QPM biotin 10,000 mcg capsule 10,000 mcg PO BID naltrexone 1.5 mg capsule PO Orajel 3X Mouth Sores 20-0.1-0.15 % gel 1 ea mucous membrane BID Qty: 5.1 0RF Print Language: Cameroonian Instructions: Dental Abscess (ED) Referrals: Melani Deras NP [Primary Care Provider] - 1 week Discharge Date/Time: 10/15/24 15:23 Procedures ED Procedure Instructions Procedures Procedures: Dental block performed. Approximately 3 mL of bupivacaine was injected into the right upper gums and maxillary region. Patient tolerated well minimal bleeding.
[2024-10-15] MEDS: BUPIVACAINE HCL 0.5% PF 50 MG/10 ML VIAL INJ (15:19)
--- OUTSIDE RECORDS SUMMARY | 2024-10-15 16:27 | XMS_ITS | CCD ---
Author Organization [facility] Care Team Providers Care Glass Tinter Name Role Phone Unavailable Primary Care Provider UnavailSelene Garrison Unavailable Rose De Unavailable Unavailable Primary Care Provider UnavailRicardo Sands Attending Unavailable Ricardo Ricardo Admitting Unavailable Mahesh Rocha Primary Care Unavailable Unavailable Primary Care Provider Unavailcolby e AICHHOLZ, MILITARY EDUCATION COORDINATOR MELANI Primary Care Unavailable AICHHOLZ, MILITARY EDUCATION COORDINATOR MELANI Attending Unavailable AICHHOLZ, MILITARY EDUCATION COORDINATOR MELANI Admitting Unavailable AICHHOLZ, MILITARY EDUCATION COORDINATOR MELANI Consulting Unavailable AICHHOLZ, MILITARY EDUCATION COORDINATOR MELANI Consulting Unavailable AICHHOLZ, MILITARY EDUCATION COORDINATOR MELANI Attending Unavailable AICHHOLZ, MILITARY EDUCATION COORDINATOR MELANI Admitting Unavailable AICHHOLZ, MILITARY EDUCATION COORDINATOR MELANI Primary Care Unavailable AICHHOLZ, MILITARY EDUCATION COORDINATOR MELANI Primary Care Unavailable LEES ., DR YIMI Last Attending Unavailable LEES ., DR YIMI Last Admitting Unavailable LEES ., DR YIMI Last Consulting Unavailable MARCOS NEWBERRY Consulting Unavailable SERAFIN, MELANI Consulting Unavailable VANESSA MARTINEZ Unavailable AICHHOLZ, MILITARY EDUCATION COORDINATOR MELANI Admitting Unavailable AICHHOLZ, MILITARY EDUCATION COORDINATOR MELANI Primary Care Unavailable AICHHOLZ, MILITARY EDUCATION COORDINATOR MELANI Attending Unavailable DR VANESSA PRESLEY V Consulting Unavailable AICHHOLZ, MILITARY EDUCATION COORDINATOR MELANI Consulting Unavailable AICHHOLZ, MILITARY EDUCATION COORDINATOR MELANI Admitting Unavailable AICHHOLZ, MILITARY EDUCATION COORDINATOR MELANI Primary Care Unavailable AICHHOLZ, MILITARY EDUCATION COORDINATOR MELANI Consulting Unavailable AICHHOLZ, MILITARY EDUCATION COORDINATOR MELANI Attending Unavailable AICHHOLZ, MILITARY EDUCATION COORDINATOR MELANI Attending Unavailable AICHHOLZ, MILITARY EDUCATION COORDINATOR MELANI Admitting Unavailable DR VANESSA PRESLEY V Consulting Unavailable AICHHOLZ, MILITARY EDUCATION COORDINATOR MELANI Primary Care Unavailable AICHHOLZ, MILITARY EDUCATION COORDINATOR MELANI Consulting Unavailable AICHHOLZ, MILITARY EDUCATION COORDINATOR MELANI Admitting Unavailable AICHHOLZ, MILITARY EDUCATION COORDINATOR MELANI Consulting Unavailable AICHHOLZ, MILITARY EDUCATION COORDINATOR MELANI Attending Unavailable AICHHOLZ, MILITARY EDUCATION COORDINATOR MELANI Primary Care Unavailable SAMSA ., SLADE Attending Unavailable SAMSA ., SLADE Admitting Unavailable AICHHOLZ, MILITARY EDUCATION COORDINATOR MELANI Primary Care Unavailable DR PASTOR ESPANA Consulting Unavailable SAMSA ., SLADE Consulting Unavailable AICHHOLZ, MILITARY EDUCATION COORDINATOR MELANI Admitting Unavailable AICHHOLZ, MILITARY EDUCATION COORDINATOR MELANI Consulting Unavailable AICHHOLZ, MILITARY EDUCATION COORDINATOR MELANI Attending Unavailable AICHHOLZ, MILITARY EDUCATION COORDINATOR MELANI Primary Care Unavailable AICHHOLZ, MILITARY EDUCATION COORDINATOR MELANI Primary Care Unavailable PAY ., DR BECK Attending Unavailable PAY ., DR BECK Admitting Unavailable PAY ., DR BECK Consulting Unavailable PHUONGCHMINNIE ., KARTHIKEYAN KLINE Consulting Unavailabl e AICHHOLZ, MILITARY EDUCATION COORDINATOR MELANI Primary Care Unavailable ANTONIA ., KARTHIKEYAN KLINE Consulting Unavailabl e LENIN ., ALEJANDRA Attending Unavailable LENIN ., ALEJANDRA Admitting Unavailable LENIN ., ALEJANDRA Admitting Unavailable AICHHOLZ, MILITARY EDUCATION COORDINATOR MELANI Primary Care Unavailable MARCOS NEWBERRY Unavailable LENIN ., ALEJANDRA Attending Unavailable LENIN ., ALEJANDRA Consulting Unavailable PROVIDER, UNKNOWN Attending Unavailable PROVIDER, UNKNOWN Admitting Unavailable PATIENT, SELF Referring Unavailable FRACISCO SKAGGS Attending Unavailable Unavailable Primary Care Provider Unavailcolby Rocha MD, Mahesh Primary Care Provider [phone] Aichholz STRATEGIC ACCOUNT DIRECTOR, Melani Unavailable EDDY LORENZANA Attending Unavailable ELVIS BRONSON Attending Unavailable EBEN DUQUE Attending Unavailab le AICHHOLZ, MELANI Referring Unavailable EDDY LORENZANA Attending Unavailable ELVIS BRONSON Attending Unavailable AICHHOLZ, MELANI Attending Unavailable JOSH PARKINSON Attending Unavailable EDDY LORENZANA Attending Unavailable AICHHOLZ, MELANI Attending Unavailable AICHHOLZ, MELANI Attending Unavailable AICHHOLZ, MELANI Referring Unavailable JEREMIAH HANSEN Attending Unavailable JEREMIAH HANSEN Referring Unavailable EDDY LORENZANA Attending Unavailable EDDY LORENZANA Attending Unavailable TIMMY GOODRICH Attending Unavailable AICHHOLZ, MELANI Referring Unavailable AICHHOLZ, MELANI Attending Unavailable EDDY LORENZANA Attending Unavailable EDDY LORENZANA Attending Unavailable EDDY LORENZANA Referring Unavailable Allergies Allergy Classification Reported Allergen(s) Allergy Type Date of Onset Reaction(s) Facility (15 sources) Tetanus vaccine; Translations: [TETANUS TOXOIDS] Propensity to adverse reactions to drug 2 Asthma [facility] Work Phone: (1 source) Allopurinol Drug Allergy 3 [facility] Repository (1 source) TETANUS AND DIPHTHERIA TOXOIDS; Translations: [TETANUS AND DIPHTHERIA TOXOIDS] Propensity to adverse reactions to drug (disorder) 2 [facility] Repository Medications Current Medications Medication Drug Class(es) Dates Sig (Normalized) Sig (Original) aspirin 81 mg delayed release oral tablet (9 sources) Platelet Aggregation Inhibitor, Nonsteroidal Anti-inflammatory Drug Start: 09-20-2024 take 1 tablet by mouth once daily Aspirin 81 mg tablet,delayed release (DR/EC) Active 81 MG PO Daily September 20, 2024 12:00am Start: 08-07-2024 End: 09-06-2024 take 1 tablet by mouth once daily aspirin 81 MG EC tablet Indications: Prediabetes Take 1 tablet (81 mg) by mouth Daily 30 tablet 08/07/2024 09/06/2024 Active take 1 tablet by beth th once daily aspirin 81 MG enteric coated tablet Take 81 mg by mouth daily. Active Benadryl Allergy (2 sources) Benadryl Allergy Active biotin 10 mg oral capsule (4 sources) Start: 09-28-20 End: 12-27-19 take 1 capsule by mouth in the morning biotin 10 MG capsule Indications: Myalgia , Numbness and tingling , Weakness Take 1 capsule (10 mg) by mouth in the morning and 1 capsule (10 mg) before bedtime. 60 capsule 2 09/28/2023 12/27/2023 Active Blood Glucose Monitoring Suppl (True Metrix Air Glucose Meter) w/Device kit (4 sources) Start: 03-29-20 Blood Glucose Monitoring Suppl (True Metrix Air Glucose Meter) w/Device kit 1 each by Other route Daily 03/29/2024 Active Blood Glucose Monitoring Suppl (True Metrix Meter) device (4 sources) Start: 03-27-20 End: 03-27-20 Blood Glucose Monitoring Suppl (True Metrix Meter) device Indications: Prediabetes 1 kit Daily 1 each 03/27/2024 03/27/2025 Active busPIRone hydrochloride 5 mg oral tablet (1 source) Start: 12-08-19 take 1 tablet by mouth once daily Buspirone 5 mg tablet Active 5 MG PO Daily December 08, 2021 12:00am cefdinir 300 mg oral capsule (1 source) Cephalosporin Antibacterial Start: 12-08-19 Cefdinir 300 mg capsule Active 300 MG PO As Directed December 08, 2021 12:00am cetirizine hydrochloride 10 mg oral tablet (11 [...] bedtime. 30 tablet 2 12/07/2023 03/06/2024 Active dicyclomine hydrochloride 10 mg oral capsule (1 source) Anticholinergic Start: take 1 capsule by mouth twice daily as needed for pain Dicyclomine 10 mg capsule Active 10 MG PO Twice daily as needed for abdominal pain December 28, 2021 9:04pm docusate sodium 100 mg oral capsule (4 sources) take 1 capsule by mouth in the morning docusate sodium (Colace) 100 MG capsule Indications: Constipation Take 100 mg by mouth in the morning. 0 Active [id number] 0.3 ml EPINEPHrine 1 mg/ml auto-injector (4 sources) alpha-Adrenergic Agonist, beta-Adrenergic Agonist, Catecholamine EPINEPHrine (Epip en) 0.3 MG/0.3ML injection syringe Inject 1 Syringe as directed 1 (one) time Inject into upper leg. Call 911 after use. 0 Active fluconazole 150 mg oral tablet (1 source) Azole Antifungal Start: take 1 tablet by mouth once Fluconazole (Diflucan) 150 mg tablet Active 150 MG PO Once 1 December 08, 2021 12:00am Take on 12/08/21 if still having symptoms. FLUoxetine 40 mg oral capsule (18 sources) Serotonin Reuptake Inhibitor Start: End: take 1 capsule by mouth once daily Fluoxetine 40 mg capsule Active 40 MG PO Daily September 20, 2024 12:00am Start: 12-08-2021 take 1 capsule by mo ut once daily Fluoxetine 20 mg capsule Active 20 MG PO Daily December 08, 2021 12:00am take 1 capsule by mo ut in the morning FLUoxetine (PROzac) 40 MG capsule Indications: Depressive Phase Bipolar Mood Disorder Take 40 mg by mouth in the morning. 0 Active PROzac Active furosemide 20 mg oral tablet (10 sources) Loop Diuretic Start: 09-10-2024 End: 10-10-2024 take 1 tablet by mouth once daily Furosemide 20 mg tablet Active 20 MG PO Daily September 20, 2024 12:00am Start: 05-21-2024 take 1 tablet by beth once daily as needed furosemide (Lasix) 20 MG tablet Indications: Edema of lower extremity Take 1 tablet (20 mg) by mouth Daily as needed (swelling in hands or feet) 30 tablet 3 05/21/2024 Active Start: 12-08-2021 take 1 tablet by beth th once daily as needed Furosemide 40 mg tablet Active 40 MG PO Daily as needed for WATER RETENTION December 08, 2021 12:00am take 1 tablet by beth th once daily as needed furosemide (Lasix) 20 MG tablet Indications: Hypertension Take 20 mg by mouth Daily as needed 0 Active take 10 mg by mouth in the morning furosemide (Lasix) 10 MG/ML solution Indications: Hypertension Take 10 mg by mouth in the morning. 0 Active Lasix Active gabapentin 100 mg oral capsule (10 sources) Anti-epileptic Agent Start: 09-06-2024 End: 10-06-2024 take 2 capsules by mouth twice daily Gabapentin 100 mg capsule Active 200 MG PO Twice daily September 20, 2024 12:00am Start: 07-03-2024 take 3 capsules by outh at bedtime as needed, then take 3 capsules by mouth once daily as needed gabapentin (Neurontin) 100 MG capsule Indications: Neuropathic Pain Take 3 capsules (300 mg) by mouth at bedtime Pt can take up to 3 capsules (300MG) PRN nightly 90 capsule 2 07/03/2024 Active take 1 capsule by mo [facility] at bedtime gabapentin (Neurontin) 100 MG capsule Indications: Neuropathic Pain Take 100 mg by mouth at bedtime. 0 Active Gabapentin Activ e Gelatin Capsules (Empty) (Capsule #3) capsule (1 source) Start: 09-20-2024 Gelatin Capsules (Empty) (Capsule #3) capsule Active CAP PO September 20, 2024 12:00am Gelatin Capsules, Empty, (Empty Capsule Size 3 [place]/Clr) capsule (4 sources) Start: 01-30-2024 Gelatin Capsules, Empty, (Empty Capsule Size 3 [place]/Clr) capsule 01/30/2024 Active hydrOXYzine hydrochloride 25 mg oral tablet (1 [...] Active magnesium oxide 400 mg oral tablet (10 sources) Start: 09-28-2023 End: 12-19-2024 take 1 tablet by mouth once daily Magnesium Oxide 400 mg (241.3 mg magnesium) tablet Active 400 MG PO Daily September 20, 2024 12:00am 24 hr metFORMIN hydrochloride 500 mg extended [...] morning. 0 Active metFORMIN HCl Ac tive modafinil 100 mg oral tablet (5 sources) Sympathomimetic-like Agent Start: 09-20-2024 take 1 tablet by mouth once daily Modafinil 100 mg tablet Active 100 MG PO Daily September 20, 2024 12:00am Start: 09-06-2024 End: 10-06-2024 take 1 tablet by mouth once daily Modafinil 200 mg tablet Active 200 MG PO Daily September 20, 2024 12:00am Start: 07-03-2024 take 1 tablet by beth th once daily modafinil (Provigil) 100 MG tablet Indications: FELICE (obstructive sleep apnea) Take 1 tablet (100 mg) by mouth Daily 30 tablet 2 07/03/2024 Active montelukast 10 mg oral tablet (5 sources) Leukotriene Receptor Antagonist Start: 12-22-2023 End: 12-21-2024 take 1 tablet by mouth once daily Montelukast 10 mg tablet Active 10 MG PO Daily September 20, 2024 12:00am nabumetone 500 mg oral tablet (20 sources) Nonsteroidal Anti-inflammatory Drug Start: 07-30-2024 End: 10-10-2024 take 1 tablet by mouth twice daily Nabumetone 500 mg tablet Active 500 MG PO Twice daily September 20, 2024 12:00am Start: 12-11-2023 End: 01-10-2024 take 1 tablet by mouth twice daily as needed for pain nabumetone (Relafen) 500 MG tablet Indications: Other chronic pain Take 1 tablet (500 mg) by mouth 2 (two) times a day as needed for moderate pain 60 tablet 1 12/11/2023 01/10/2024 Active Start: 12-08-2021 take 1 tablet by beth once daily Nabumetone 500 mg tablet Active 500 MG PO Daily December 08, 2021 12:00am Nabumetone Activ e Nabumetone Not-T aking Naltrexone (4 sources) Opioid Antagonist Start: 12-06-2023 End: 01-05-2024 Naltrexone HCl powder Indications: Idiopathic progressive neuropathy , Weakness 3 mg at bedtime 30 g 11 12/06/2023 01/05/2024 Active nystatin [id number] unt/ml oral suspension (2 sources) Polyene Antifungal Start: 05-31-2022 take 4 mL by mouth four times daily Nystatin 133146 UNIT/ML 4 ml swish and spit Mouth/Throat Four times a day for 14 days May, Active Start: 12-08-2021 take 1 mL by mouth t hree times daily Nystatin 100,000 unit/mL suspension Active 1 ML PO Three times daily December 08, 2021 12:00am pantoprazole 40 mg delayed release oral tablet (17 sources) Proton Pump Inhibitor Start: 09-10-2024 take 1 tablet by mouth before mealtime pantoprazole (ProtoNix) 40 MG EC tablet Indications: Gastroesophageal reflux disease, unspecified whether esophagitis present Take 1 tablet by mouth in the morning before meals. 30 tablet 1 09/10/2024 Active Start: 09-09-2024 End: 10-09-2024 take 1 tablet by mouth before mealtime pantoprazole (ProtoNix) 40 MG EC tablet Indications: Gastroesophageal reflux disease, unspecified whether esophagitis present Take 1 tablet (40 mg) by mouth in the morning. Take before meals. 30 tablet 2 09/09/2024 10/09/2024 Active Start: 07-08-2024 take 1 tablet by beth th before mealtime pantoprazole (ProtoNix) 40 MG EC tablet Indications: Gastroesophageal reflux disease, unspecified whether esophagitis present Take 1 tablet (40 mg) by mouth in the morning. Take before meals. 30 tablet 2 07/08/2024 Active take 1 tablet by beth th once daily pantoprazole (PROTONIX) 40 MG tablet Take 40 mg by mouth daily. Active Protonix Active Pantoprazole 40 mg tablet,delayed release (DR/EC) (1 source) Start: 09-20-2024 Pantoprazole 4 0 mg tablet,delayed release (DR/EC) Active MG PO September 20, 2024 12:00am predniSONE 20 mg oral tablet (6 sources) Start: 12-08-2021 take 1 tablet by mouth every twenty-four hours prednisone 20 MG 1 tablet Orally daily for 3 days May, Active Start: 09-10-2021 take 1 tablet by beth th every twelve hours predniSONE 20 MG 1 tablet Orally bid for 5 day(s) Aug, Active rOPINIRole 0.25 mg oral tablet (1 source) Nonergot Dopamine Agonist Start: 12-08-2021 take 1 tablet by mouth once daily at bedtime Ropinirole 0.25 mg tablet Active 0.25 MG PO Daily at bedtime 5 5 December 08, 2021 12:00am vitamin B12 (2 sources) Vitamin B12 Vitamin B12 Acti ve Completed/Discontinued Medications Medication Drug Class(es) Dates Sig (Normalized) Sig (Original) albuterol 0.83 mg/ml inhalation solution (5 sources) beta2-Adrenergic Agonist Start: 12-08-2021 End: 09-20-2024 take 2.5 mg by inhalation four times daily as needed Albuterol Sulfate 2.5 mg /3 mL (0.083 %) solution for nebulization Discontinued 2.5 MG INHALATION Four times daily - Respiratory as needed for Shortness Of Breath December 08, 2021 12:00am September 20, 2024 6:35pm Start: 12-08-2021 End: 09-20-2024 Albuterol Sulfate 90 mcg/act uation HFA aerosol inhaler Discontinued 90 MCG INHALATION Q6H as needed for Shortness Of Breath December 08, 2021 12:00am September 20, 2024 6:35pm Start: 06-26-2021 take 2 puff(s) by in [...] hours if needed for wheezing 0 Active benzonatate 200 mg oral capsule (1 source) Non-narcotic Antitussive Start: 12-08-2021 End: 09-20-2024 take 1 capsule by mouth three times daily Benzonatate 200 mg capsule Discontinued 200 MG PO Three times daily December 08, 2021 12:00am September 20, 2024 6:36pm celecoxib (3 sources) Nonsteroidal Anti-inflammatory Drug CeleBREX Not-Taking CeleBREX Active dextromethorphan hydrobromide 1.5 mg/ml / pyrilamine maleate 1.5 mg/ml oral solution (3 sources) Uncompetitive V-pfejdr-N-aspartate Receptor Antagonist, Sigma-1 Agonist Start: 06-26-2021 [place] DM 7.5-7.5 MG/5ML 10 ml Orally every 6-8 hours as needed for 8 days Jun, Not-Taking methylPREDNISolone 4 mg oral tablet (3 sources) Corticosteroid Start: 06-26-2021 methylPREDNISolone 4 MG as directed Orally Once a day for 6 days Jun, Not-Taking Problems Active Problems Problem Classification Problem Date Documented Date Episodic/Chronic Abdominal pain (5 sources) Unspecified abdominal pain; Translations: [Abdominal pain] Onset: 03-21-2023 Episodic Comment on above: Problem List clean-u p per request of Phys. EHR Cmte Anxiety disorders (15 sources) Anxiety; Translations: [Anxiety disorder, unspecified] Onset: 05-19-2022 01-10-2022 Chronic Asthma (8 sources) Asthma; Translations: [Unspecified asthma, uncomplicated] Onset: 11-28-2023 11-28-2023 Chronic Diabetes mellitus without complication (13 sources) Hyperglycemia, unspecified; Translations: [Prediabetes] Onset: 03-14-2019 Episodic Disorders of teeth and jaw (4 sources) Infection of tooth; Translations: [Periapical abscess without sinus] Onset: 08-09-2024 08-09-2024 Episodic Esophageal disorders (11 sources) Gastroesophageal reflux disease; Translations: [Gastro-esophageal reflux disease without esophagitis] Onset: 03-14-2019 09-26-2023 Chronic Essential hypertension (10 sources) Essential (primary) hypertension; Translations: [Essential hypertension] Onset: 03-14-2019 09-26-2023 Chronic Genitourinary symptoms and ill-defined conditions (3 sources) Unspecified symptoms and signs involving the genitourinary system; Translations: [UNS SYMPTOMS SIGNS INVLV SYSTEM] Onset: 01-23-2023 Episodic Gout and other crystal arthropathies (1 source) Gout, unspecified; Translations: [GOUT UNSPECIFIED] Onset: 01-25-2023 Chronic Joint disorders and dislocations; trauma-related (8 sources) Chondromalacia of left patella; Translations: [Chondromalacia patellae, left knee] Onset: 09-26-2023 09-26-2023 Chronic Malaise and fatigue (1 source) Chronic fatigue, unspecified; Translations: [CHRONIC FATIGUE UNSPECIFIED] Onset: 01-25-2023 Chronic Mood disorders (13 sources) Bipolar II disorder, most recent episode major depressive; Translations: [Bipolar II disorder] Onset: 03-14-2019 07-24-2023 Chronic Nutritional deficiencies (2 sources) Vitamin D deficiency, unspecified; Translations: [Vitamin D deficiency, unspecified] Onset: 05-23-2023 Chronic Osteoarthritis (9 sources) Osteoarthrosis of the carpometacarpal joint of the thumb; Translations: [Osteoarthritis of first carpometacarpal joint, unspecified] Onset: 03-14-2019 09-26-2023 Chronic Other aftercare (1 source) Other fci (current) drug therapy; Translations: [OTH CARE HOME CURRENT DRUG THERAPY] Onset: 01-25-2023 Episodic Other aftercare (1 source) 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; Translations: [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 USE 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 HYPOGLYCEMIC DX] Onset: 01-25-2023 Episodic Other and ill-defined heart disease (4 sources) Cardiomegaly; Translations: [Cardiomegaly] Onset: 02-05-2024 02-05-2024 Chronic Other bone disease and musculoskeletal deformities (1 source) Cartilage disorder; Translations: [Disorder of cartilage, unspecified] 09-20-2024 Episodic Other connective tissue disease (2 sources) Cramp; Translations: [Cramp and spasm] Onset: 12-21-2023 12-21-2023 Episodic Comment on above: Problem List clean-u p per request of PhysHazel Bowles Other connective tissue disease (6 sources) Fibromyalgia; Translations: [Fibromyalgia] Onset: 09-26-2023 04-01-2024 Episodic Other infections; including parasitic (2 sources) Post-viral disorder; 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] Chronic Other infections; including parasitic (4 sources) Late effects of other and unspecified infectious and parasitic diseases; Translations: [COVID-19 long hauler] Onset: 02-05-2024 02-05-2024 Chronic Other liver diseases (4 sources) Steatosis of liver; Translations: [Fatty (change of) liver, not elsewhere classified] Onset: 02-05-2024 02-05-2024 Chronic Other lower respiratory disease (1 source) Dyspnea; Translations: [Shortness of breath] Episodic Other lower respiratory disease (6 sources) Other forms of dyspnea; Translations: [Other respiratory abnormalities] Onset: 12-21-2023 12-21-2023 Episodic Comment on above: Problem List clean-u p per request of Phys. EHR Cmte Other nervous system disorders (4 sources) Chronic pain; Translations: [Other chronic pain] Onset: 09-26-2023 09-26-2023 Chronic Other nervous system disorders (9 sources) Neuropathy; Translations: [Idiopathic progressive neuropathy] Onset: 09-28-2023 09-28-2023 Chronic Other non-traumatic joint disorders (9 sources) Multiple joint pain; Translations: [Pain in unspecified joint] Onset: 03-14-2019 09-26-2023 Episodic Other non-traumatic joint disorders (9 sources) Pain in left knee; Translations: [Pain [...] Chronic Other nutritional; endocrine; and metabolic disorders (9 sources) Morbid obesity; Translations: [Morbid (severe) obesity due to excess calories] Onset: 03-14-2019 09-26-2023 Chronic Other screening for suspected conditions (not mental disorders or infectious disease) (12 sources) Patient encounter status; Translations: [Encounter for screening mammogram for malignant neoplasm of breast] Onset: 05-09-2024 05-09-2024 Episodic Other skin disorders (1 source) Localized swelling, mass and lump, neck; Translations: [LOCALIZED SWELLING MASS AND LUMP NECK] Onset: 01-16-2023 Episodic Other upper respiratory disease (1 source) Seasonal allergy; Translations: [Other seasonal allergic rhinitis] 09-20-2024 Chronic Residual codes; unclassified (4 sources) Obstructive sleep apnea (adult) (pediatric); Translations: [OBSTRUCTIVE SLEEP APNEA] Onset: 07-19-2022 Chronic Residual codes; unclassified (1 source) Idiopathic hypersomnia with long sleep time; Translations: [IDIO HYPERSOMNIA W/LONG SLEEP TIME] Onset: 07-24-2022 Chronic Residual codes; unclassified (4 sources) Obstructive sleep apnea syndrome; Translations: [Obstructive sleep apnea (adult) (pediatric)] Onset: 02-05-2024 02-05-2024 Chronic Residual codes; unclassified (9 sources) Edema of lower extremity; Translations: [Localized edema] Onset: 03-14-2019 09-26-2023 Episodic Residual codes; unclassified (1 source) Body fluid retention; Translations: [Edema, unspecified] 09-20-2024 Episodic Rheumatoid arthritis and related disease (1 source) Rheumatoid arthritis; Translations: [Rheumatoid arthritis, unspecified] 09-20-2024 Chronic Spondylosis; intervertebral disc disorders; other back problems (10 sources) Sciatica, left side; Translations: [Lumbar radiculopathy] [...] Classification Problem Date Documented Da te Episodic/Chronic Fluid and electrolyte disorders (2 sources) Hypokalemia; Translations: [Dehydration] Onset: 07-04-2022 Episodic Immunizations and screening for infectious disease (5 sources) Contact with and (suspected) exposure to other viral communicable diseases; Translations: [Raised antinuclear antibody] Onset: 09-10-2021 Resolved: 09-10-2021 Episodic Joint disorders and dislocations; trauma-related (12 sources) Tear of medial meniscus of knee; Translations: [Other tear of medial meniscus, current injury, left knee, initial encounter] Onset: 03-14-2019 09-26-2023 Episodic Malaise and fatigue (18 sources) Weakness; Translations: [Other fatigue] Onset: 05-04-2022 Episodic Mycoses (1 source) Candidal stomatitis Onset: 05-31-2022 Resolved: 05-31-2022 Episodic Nonspecific chest pain (6 sources) Chest pain; Translations: [Chest pain, unspecified] Onset: 07-05-2022 Episodic Nutritional deficiencies (5 sources) Vitamin deficiency; Translations: [Vitamin deficiency, unspecified] Onset: 05-09-2024 08-25-2024 Episodic Other aftercare (1 source) long-term (current) use of aspirin; Translations: [CARE HOME CURRENT USE OF ASPIRIN] Onset: 07-04-2022 Episodic Other connective tissue disease (9 sources) Muscle pain; Translations: [Myalgia, unspecified site] Onset: 09-28-2023 09-28-2023 Episodic Other female genital disorders (8 sources) Lesion of cervix; Translations: [Noninflammatory disorder of cervix uteri, unspecified] Onset: 03-14-2019 09-26-2023 Episodic Other female genital disorders (4 sources) Stenosis of cervix; Translations: [Stricture and stenosis of cervix uteri] Onset: 02-05-2024 02-05-2024 Episodic Other gastrointestinal disorders (4 sources) Change in bowel habit; Translations: [CHANGE IN BOWEL HABIT] Onset: 06-04-2022 Episodic Other injuries and conditions due to external causes (8 sources) At low risk for fall; Translations: [History of falling] Onset: 03-14-2019 Resolved: 05-09-2024 09-26-2023 Episodic Other lower respiratory disease (4 sources) Other nonspecific abnormal finding of lung field; Translations: [OTH NONSPECIFIC ABN FIND LNG FIELD] Onset: 08-09-2022 Episodic Other lower respiratory disease (5 sources) Dyspnea, unspecified; Translations: [DYSPNEA UNSPECIFIED] Onset: 07-11-2022 Episodic Other nervous system disorders (4 sources) Paresthesia of skin; Translations: [PARESTHESIA OF SKIN] Onset: 06-30-2022 Episodic Other nervous system disorders (9 sources) Numbness and tingling sensation of skin; Translations: [Anesthesia of skin] Onset: 09-28-2023 09-28-2023 Episodic Other non-traumatic joint disorders (4 sources) Hip pain; Translations: [Pain in unspecified hip] Onset: 03-14-2019 09-26-2023 Episodic Other upper respiratory infections (1 source) Acute sinusitis, unspecified; Translations: [Acute sinusitis, recurrence not specified, unspecified location J01.90] Onset: 09-10-2021 Resolved: 09-10-2021 Episodic Ovarian cyst (4 sources) Cyst of ovary; Translations: [Unspecified ovarian cyst, unspecified side] Onset: 02-05-2024 02-05-2024 Episodic Residual codes; unclassified (4 sources) Cancer cervix screening - not needed; Translations: [Procedure and treatment not carried out for other reasons] Onset: 05-09-2024 Resolved: 05-09-2024 05-09-2024 Episodic Suicide and intentional self-inflicted injury (4 sources) Suicide attempt ; Translations: [Suicide attempt, initial encounter] Onset: 02-05-2024 Resolved: 05-09-2024 05-09-2024 Episodic Unclassified (1 source) Persistent cough for 3 weeks or longer R05.3 Onset: 05-31-2022 Resolved: 05-31-2022 Viral infection (4 sources) COVID-19; Translations: [Other specified viral infection] Onset: 02-05-2024 Resolved: 02-05-2024 02-05-2024 Episodic Results Test Name Value Interpretation Reference Range [...] IS VERY IMPORTANT TO YOUR HEALTH. THE [place] GUIDELINES RECOMMEND THAT WOMEN 40 [...] MD Normal Not Available Follow-Upon 05-23-2023 Follow-Up [id number] Lu Cancino 1970 F Date Provider Department Center 05/23/2023 [facility] Joselito Heal Family History Family history unknown: Yes Level of Service:07287 DC OFFICE/OUTPATIENT ESTABLISHED MOD MDM 30-39 MIN Reason for Visit and Comments: Follow-up [503012] - Flare up Normal [facility] XR KUB 1 VIEWon 03-22-2023 XR KUB [...] VANESSA PRESLEY Date: 2023-03-22 07:45 Normal [facility] UA RANDOM W/MICROSCOPICon BACTERIA TRACE Abnormal NONE SEEN [facility] Comment on above: Performed By: #### U AMIC #### [facility] [address] [address] [address] Bertram Paulino Bilirubin Ql (U) Negative Normal NEGATIVE [facility] Comment on above: Performed By: #### U AMIC #### [facility] [address] [address] [address] Bertram Paulino CAST NONE SEEN Normal NONE SEEN [facility] Comment on above: Performed By: #### U AMIC #### [facility] [address] [address] [address] Bertram Paulino Clarity (U) CLEAR Normal CLEAR [facility] Comment on above: Performed By: #### U AMIC #### [facility] [address] [address] [address] Bertram Paulino Color (U) LT. YELLOW Normal YELLOW [facility] Comment on above: Performed By: #### U AMIC #### [facility] [address] [address] [address] Bertram Paulino Crystals LM Nom (Urine sed) NONE SEEN Normal NONE SEEN [facility] Comment on above: Performed By: #### U AMIC #### [facility] [address] [address] [address] Bertram Paulino Epithelial cells LM Ql (Urine sed) RARE Normal NONE SEEN /RARE [facility] Comment on above: Performed By: #### U AMIC #### [facility] [address] [place] [address] Dr. Bertram Paulino Glucose Ql (U) Negative Normal NEGATIVE The [facility] Comment on above: Performed By: #### U AMIC #### [facility] [address] [place] [address] Dr. Bertram Paulino Hemoglobin Ql (U) Negative Normal NEGATIVE [facility] Comment on above: Performed By: #### U AMIC #### [facility] [address] [place] [address] Dr. Bertram Paulino Ketones Ql (U) Negative Normal NEGATIVE The [facility] Comment on above: Performed By: #### U AMIC #### [facility] [address] [place] [address] Dr. Bertram Paulino LEUKOCYTES Negative Normal NEGATIVE [facility] Comment on above: Performed By: #### U AMIC #### [facility] [address] [place] [address] Dr. Bertram Paulino MUCOUS NONE SEEN Normal NONE SEEN [facility] Comment on above: Performed By: #### U AMIC #### [facility] [address] [place] [address] Dr. Bertram Paulino Nitrite Ql (U) Negative Normal NEGATIVE [facility] Comment on above: Performed By: #### U AMIC #### [facility] [address] [place] [address] Dr. Bertram Paulino pH (U) 8.5 [pH] Normal 5-9 [facility] Comment on above: Performed By: #### U AMIC #### [facility] [address] [address] [address] Bertram Paulino RBC 0-2 Normal 0-2 [facility] Comment on above: Performed By: #### U AMIC #### [facility] [address] [place] [address] Dr. Bertram Paulino SPEC GRAVITY 1.015 Normal 1.005-<=1.025 [facility] Comment on above: Performed By: #### U AMIC #### [facility] [address] [place] [address] Dr. Bertram Paulino UA PROTEIN Negative Normal NEGATIVE/ TRACE [facility] Comment on above: Performed By: #### U AMIC #### [facility] [address] [place] [address] Dr. Bertram Paulino Urobilinogen Qn (U) 0.2 {Yazmin'U}/dL Normal 0.2 - 1. 0 [facility] Comment on above: Performed By: #### U AMIC #### [facility] [address] [place] [address] Dr. Bertram Paulino WBC NONE SEEN Normal NONE SEEN [facility] Comment on above: Performed By: #### U AMIC #### [facility] [address] [place] [address] Dr. Bertram Pualino CBC AUTO DIFFon 01-23-2023 BASO # 0.0 103/ul Normal 0.0-0.1 [facility] Comment on above: Performed By: #### C MP, LIPID, TSH #### [facility] [address] [place] [address] Dr. Bertram Paulino Basophils/100 WBC (Bld) 0.5 % Normal 0.2-2.0 [facility] Comment on above: Performed By: #### C MP, LIPID, TSH #### [facility] [address] [place] [address] Dr. Bertram Paulino EO # 0.1 103/ul Normal 0.0-0.7 [facility] Comment on above: Performed By: #### C MP, LIPID, TSH #### [facility] [address] [place] [address] Dr. Bertram Paulino Eosinophils/100 WBC (Bld) 1.2 % Normal 0.9-7.0 [facility] Comment on above: Performed By: #### C MP, LIPID, TSH #### [facility] [address] [place] [address] Dr. Bertram Paulino Erythrocyte distribution width (RBC) [Ratio] 12.8 % Normal 11.0-15.0 [facility] Comment on above: Performed By: #### C MP, LIPID, TSH #### [facility] [address] [place] [address] Dr. Bertram Paulino Hematocrit (Bld) [Volume fraction] 38.9 % Normal 36.0-48.0 [facility] Comment on above: Performed By: #### C MP, LIPID, TSH #### [facility] [address] [place] [address] Dr. Bertram Paulino Hemoglobin (Bld) [Mass/Vol] 13.3 g/dL Normal 12.0-16.0 [facility] Comment on above: Performed By: #### C MP, LIPID, TSH #### [facility] [address] [place] [address] Dr. Bertram Paulino IG # 0.04 10e3/ul Critically high 0.00-0.03 [facility] Comment on above: Performed By: #### C MP, LIPID, TSH #### [facility] [address] [place] [address] Dr. Bertram Paulino IG % 0.5 % Normal 0.0-0.5 [facility] Comment on above: Performed By: #### C MP, LIPID, TSH #### [facility] [address] [place] [address] Dr. Bertram Paulino LYMPH # 1.9 103/ul Normal 1.2-3.8 [facility] Comment on above: Performed By: #### C MP, LIPID, TSH #### [facility] [address] [place] [address] Dr. Bertram Paulino Lymphocytes/100 WBC (Bld) 24.7 % Normal 20.5-60.0 [facility] Comment on above: Performed By: #### C MP, LIPID, TSH #### [facility] [address] [place] [address] Dr. Bertram Paulino MANUAL DIFF REQ NO Normal [facility] Comment on above: Performed By: #### C MP, LIPID, TSH #### [facility] [address] [place] [address] Dr. Bertram Paulino MCH (RBC) [Entitic mass] 30.0 pg Normal 26.7-34.0 [facility] Comment on above: Performed By: #### C MP, LIPID, TSH #### [facility] [address] [place] [address] Dr. Bertram Paulino MCHC (RBC) [Mass/Vol] 34.2 g/dL Normal 29.9-35.2 [facility] Comment on above: Performed By: #### C MP, LIPID, TSH #### [facility] [address] [place] [address] Dr. Bertram Paulino MCV (RBC) [Entitic vol] 87.6 fL Normal 81.0-99.0 [facility] Comment on above: Performed By: #### C MP, LIPID, TSH #### [facility] [address] [place] [address] Dr. Bertram Paulino MONO # 0.4 103/ul Normal 0.3-0.8 [facility] Comment on above: Performed By: #### C MP, LIPID, TSH #### [facility] [address] [place] [address] Dr. Bertram Paulino Monocytes/100 WBC (Bld) 5.3 % Normal 1.7-12.0 [facility] Comment on above: Performed By: #### C MP, LIPID, TSH #### [facility] [address] [place] [address] Dr. Bertram Paulino NEUT # 5.1 103/ul Normal 1.4-6.5 [facility] Comment on above: Performed By: #### C MP, LIPID, TSH #### [facility] [address] [place] [address] Dr. Bertram Paulino Neutrophils/100 WBC (Bld) 67.8 % Normal 43.0-75.0 [facility] Comment on above: Performed By: #### C MP, LIPID, TSH #### [facility] [address] [place] [address] Dr. Bertram Paulino Platelet mean volume (Bld) [Entitic vol] 10.7 fL Normal 9.5-13.5 [facility] Comment on above: Performed By: #### C MP, LIPID, TSH #### [facility] [address] [place] [address] Dr. Bertram Paulino PLT 270 103/ul Normal 150-450 [facility] Comment on above: Performed By: #### C MP, LIPID, TSH #### [facility] [address] [place] [address] Dr. Bertram Paulino RBC 4.44 106/ul Normal 4.20-5.40 [facility] Comment on above: Performed By: #### C MP, LIPID, TSH #### [facility] [address] [place] [address] Dr. Bertram Paulino WBC 7.5 103/ul Normal 4.0-11.0 [facility] Comment on above: Performed By: #### C MP, LIPID, TSH #### [facility] [address] [place] [address] Dr. Bertram Paulino ER URINE PROFILEon 3 Bilirubin Ql (U) Negative Normal NEGATIVE [facility] Comment on above: Performed By: #### C MP, LIPID, TSH #### [facility] [address] [place] [address] Dr. Bertram Paulino Clarity (U) CLEAR Normal CLEAR [facility] Comment on above: Performed By: #### C MP, LIPID, TSH #### [facility] [address] [place] [address] Dr. Bertram Paulino Color (U) LT. YELLOW Normal YELLOW [facility] Comment on above: Performed By: #### C MP, LIPID, TSH #### [facility] [address] [address] [address] Bertram ETIENNE A micrscopic examination will be performed if indicated. Normal [facility] Comment on above: Performed By: #### C MP, LIPID, TSH #### [facility] [address] [address] [address] Bertram Paulino Glucose Ql (U) Negative Normal NEGATIVE [facility] Comment on above: Performed By: #### C MP, LIPID, TSH #### [facility] [address] [address] [address] Bertram Paulino Hemoglobin Ql (U) Negative Normal NEGATIVE [facility] Comment on above: Performed By: #### C MP, LIPID, TSH #### [facility] [address] [address] [address] Bertram Paulino Ketones Ql (U) Negative Normal NEGATIVE [facility] Comment on above: Performed By: #### C MP, LIPID, TSH #### [facility] [address] [address] [address] Bertram Paulino LEUKOCYTES Negative Normal NEGATIVE [facility] Comment on above: Performed By: #### C MP, LIPID, TSH #### [facility] [address] [address] [address] Bertram Paulino Nitrite Ql (U) Negative Normal NEGATIVE [facility] Comment on above: Performed By: #### C MP, LIPID, TSH #### [facility] [address] [address] [address] Bertram Paulino pH (U) 7.0 [pH] Normal 5-9 [facility] Comment on above: Performed By: #### C MP, LIPID, TSH #### [facility] [address] [address] [address] Bertram Paulino SPEC GRAVITY <=1.005 Abnormal 1.005-<=1.025 [facility] Comment on above: Performed By: #### C MP, LIPID, TSH #### [facility] [address] [place] [address] Dr. Bertram Paulino UA PROTEIN Negative Normal NEGATIVE/ TRACE [facility] Comment on above: Performed By: #### C MP, LIPID, TSH #### [facility] [address] [place] [address] Dr. Bertram Paulino UR MICRO IND NOT INDICATED Normal [facility] Comment on above: Performed By: #### C MP, LIPID, TSH #### [facility] [address] [address] [address] Bertram Paulino Urobilinogen Qn (U) 0.2 {Yazmin'U}/dL Normal 0.2 - 1. 0 [facility] Comment on above: Performed By: #### C MP, LIPID, TSH #### [facility] [address] [place] [address] Dr. Bertram Paulino MONOon 01-23-2023 Monocytes (Bld) [#/Vol] Negative Normal NEGATIVE [facility] Comment on above: Performed By: #### C MP, LIPID, TSH #### [facility] [address] [place] [address] Dr. Bertram Paulino PROF 14(COMP METB)on 023 Albumin [Mass/Vol] 4.1 g/dL Normal 3.4-5.0 [facility] Comment on above: Performed By: #### H STROPN, TSH, CMP #### [facility] [address] [place] [address] Dr. Bertram Paulino Albumin/Globulin [Mass ratio] 1.2 {ratio} Normal [facility] Comment on above: Performed By: #### H STROPN, TSH, CMP #### [facility] [address] [place] [address] Dr. Bertram Paulino ALP [Catalytic activity/Vol] 71 U/L Normal 46-116 [facility] Comment on above: Performed By: #### H STROPN, TSH, CMP #### [facility] [address] [place] [address] Dr. Bertram Paulino ALT [Catalytic activity/Vol] 53 U/L Normal 14-59 [facility] Comment on above: Performed By: #### H STROPN, TSH, CMP #### [facility] [address] [place] [address] Dr. Bertram Paulino Anion gap [Moles/Vol] 8.1 mmol/L Normal [facility] Comment on above: Performed By: #### H STROPN, TSH, CMP #### [facility] [address] [address] [address] Bertram Paulino AST [Catalytic activity/Vol] 35 U/L Normal 15-37 [facility] Comment on above: Performed By: #### H STROPN, TSH, CMP #### [facility] [address] [address] [address] Bertram Paulino Bilirubin [Mass/Vol] 0.3 mg/dL Normal 0.2-1.0 [facility] Comment on above: Performed By: #### H STROPN, TSH, CMP #### [facility] [address] [address] [address] Bertram Paulino Calcium [Mass/Vol] 9.3 mg/dL Normal 8.5-10.1 [facility] Comment on above: Performed By: #### H STROPN, TSH, CMP #### [facility] [address] [address] [address] Bertram Paulino Chloride [Moles/Vol] 103 mmol/L Normal 98-107 [facility] Comment on above: Performed By: #### H STROPN, TSH, CMP #### [facility] [address] [place] [address] Dr. Bertram Paulino CO2 [Moles/Vol] 29.5 mmol/L Normal 21.0-32.[address] [facility] Comment on above: Performed By: #### H STROPN, TSH, CMP #### [facility] [address] [place] [address] Dr. Bertram Paulino Creatinine [Mass/Vol] 0.62 mg/dL Normal 0.55-1.02 [facility] Comment on above: Performed By: #### H STROPN, TSH, CMP #### [facility] [address] [address] [address] Bertram Paulino EGFR-AF [place] >60 Normal >=[address] [facility] Comment on above: Performed By: #### H STROPN, TSH, CMP #### [facility] [address] [address] [address] Bertram Paulino EGFR-NON AF [place] >60 Normal >=60 [facility] Comment on above: Performed By: #### H STROPN, TSH, CMP #### [facility] [address] [address] [address] Bertram Paulino Globulin (S) [Mass/Vol] 3.3 g/dL Normal [facility] Comment on above: Performed By: #### H STROPN, TSH, CMP #### [facility] [address] [address] [address] Bertram Paulino Glucose [Mass/Vol] 121 mg/dL Critically high 74-106 [facility] Comment on above: Performed By: #### H STROPN, TSH, CMP #### [facility] [address] [address] [address] Bertram Paulino Potassium [Moles/Vol] 3.6 mmol/L Normal 3.5-5.1 [facility] Comment on above: Performed By: #### H STROPN, TSH, CMP #### [facility] [address] [address] [address] Bertram Paulino Protein [Mass/Vol] 7.4 g/dL Normal 6.4-8.2 [facility] Comment on above: Performed By: #### H STROPN, TSH, CMP #### [facility] [address] [address] [address] Bertram Paulino Sodium [Moles/Vol] 137 mmol/L Normal 136-145 [facility] Comment on above: Performed By: #### H STROPN, TSH, CMP #### [facility] [address] [address] [address] Bertram Paulino Urea nitrogen [Mass/Vol] 9.0 mg/dL Normal 7.0-18.0 [facility] Comment on above: Performed By: #### H STROPN, TSH, CMP #### [facility] [address] [address] [address] Bertram Paulino Urea nitrogen/Creatinine [Mass ratio] 14.5 mg/mg Normal [facility] Comment on above: Performed By: #### H STROPN, TSH, CMP #### [facility] [address] [address] [address] Bertram Paulino PROTIMEon 01-23-2023 INR Coag (PPP) [Relative time] {INR} Normal [facility] Comment on above: Performed By: #### C MP, LIPID, TSH #### [facility] [address] [address] [address] Bertram Paulino INR GUIDELINES SEE BELOW Normal [facility] Comment on above: Result Comment: TYRA RED INR: 2.0 - 3.0 CONDITIONS NOT LISTED BELOW 2.5 - 3.5 FOR PROSTHETIC HEART VALVE REPLACEMENT 2.5 - 3.5 RECURRENT THROMBOSIS Performed By: #### C MP, LIPID, TSH #### [facility] [address] [place] [address] Dr. Bertram Paulino PT Coag (PPP) [Time] 9.6 s Normal 9.0-11.6 [facility] Comment on above: Performed By: #### C MP, LIPID, TSH #### [facility] [address] [place] [address] Dr. Bertram Paulino PTTon 01-23-2023 aPTT Coag (Bld) [Time] s Normal 22.3-36.2 [facility] Comment on above: Performed By: #### C MP, LIPID, TSH #### [facility] [address] [place] [address] Dr. Bertram Paulino TROPONIN, HIGH SENSITIVITYon 01-23-2023 HSTROP 4.8 pg/mL Normal 4.0-51.3 [facility] Comment on above: Result Comment: CUT- OFF POINTS HAVE BEEN ESTABLISHED BASED ON THE FOURTH UNIVERSAL DEFINITIONS OF MYOCARDIAL INFARCTION. THE UPPER REFERENCE LIMIT (URL) OF TROPONIN, DEFINED THE 99TH PERCENTILE OF cTnI DISTRIBUTION IN A REFERENCE POPULATION, HAS BEEN CONFIRMED THE DECISION THRESHOLD FOR PA DIAGNOSIS. Performed By: #### C MP, LIPID, TSH #### [facility] [address] [place] [address] Dr. Bertram Paulino TSHon 01-23-2023 TSH 2.684 uIU/mL Normal 0.358-3.740 [facility] Comment on above: Performed By: #### H STROPN, TSH, CMP #### [facility] [address] [place] [address] Dr. Bertram Paulino CBC AUTO DIFFon 01-12-2023 BASO # 0.0 103/ul Normal 0.0-0.1 [facility] Comment on above: Performed By: #### C MP, LIPID, TSH #### [facility] [address] [place] [address] Dr. Bertram Paulino Basophils/100 WBC (Bld) 0.5 % Normal 0.2-2.0 [facility] Comment on above: Performed By: #### C MP, LIPID, TSH #### [facility] [address] [place] [address] Dr. Bertram Paulino EO # 0.2 103/ul Normal 0.0-0.7 [facility] Comment on above: Performed By: #### C MP, LIPID, TSH #### [facility] [address] [place] [address] Dr. Bertram Paulino Eosinophils/100 WBC (Bld) 3.6 % Normal 0.9-7.0 [facility] Comment on above: Performed By: #### C MP, LIPID, TSH #### [facility] [address] [place] [address] Dr. Bertram Paulino Erythrocyte distribution width (RBC) [Ratio] 12.7 % Normal 11.0-15.0 [facility] Comment on above: Performed By: #### C MP, LIPID, TSH #### [facility] [address] [place] [address] Dr. Bertram Paulino Hematocrit (Bld) [Volume fraction] 37.6 % Normal 36.0-48.0 [facility] Comment on above: Performed By: #### C MP, LIPID, TSH #### [facility] [address] [place] [address] Dr. Bertram Paulino Hemoglobin (Bld) [Mass/Vol] 12.7 g/dL Normal 12.0-16.0 [facility] Comment on above: Performed By: #### C MP, LIPID, TSH #### [facility] [address] [address] [address] Bertram Paulino IG # 0.02 10e3/ul Normal 0.00-0.03 [facility] Comment on above: Performed By: #### C MP, LIPID, TSH #### [facility] [address] [address] [address] Bertram Paulino IG % 0.3 % Normal 0.0-0.5 [facility] Comment on above: Performed By: #### C MP, LIPID, TSH #### [facility] [address] [address] [address] Bertram Paulino LYMPH # 2.2 103/ul Normal 1.2-3.8 [facility] Comment on above: Performed By: #### C MP, LIPID, TSH #### [facility] [address] [place] [address] Dr. Bertram Paulino Lymphocytes/100 WBC (Bld) 35.7 % Normal 20.5-60.0 [facility] Comment on above: Performed By: #### C MP, LIPID, TSH #### [facility] [address] [address] [address] Bertram Paulino MANUAL DIFF REQ NO Normal [facility] Comment on above: Performed By: #### C MP, LIPID, TSH #### [facility] [address] [address] [address] Bertram Paulino MCH (RBC) [Entitic mass] 29.7 pg Normal 26.7-34.0 [facility] Comment on above: Performed By: #### C MP, LIPID, TSH #### [facility] [address] [place] [address] Dr. Bertram Paulino MCHC (RBC) [Mass/Vol] 33.8 g/dL Normal 29.9-35.2 [facility] Comment on above: Performed By: #### C MP, LIPID, TSH #### [facility] [address] [place] [address] Dr. Bertram Paulino MCV (RBC) [Entitic vol] 88.1 fL Normal 81.0-99.0 [facility] Comment on above: Performed By: #### C MP, LIPID, TSH #### [facility] [address] [place] [address] Dr. Bertram Paulino MONO # 0.3 103/ul Normal 0.3-0.8 [facility] Comment on above: Performed By: #### C MP, LIPID, TSH #### [facility] [address] [place] [address] Dr. Bertram Paulino Monocytes/100 WBC (Bld) 5.1 % Normal 1.7-12.0 [facility] Comment on above: Performed By: #### C MP, LIPID, TSH #### [facility] [address] [place] [address] Dr. Bertram Paulino NEUT # 3.4 103/ul Normal 1.4-6.5 [facility] Comment on above: Performed By: #### C MP, LIPID, TSH #### [facility] [address] [place] [address] Dr. Bertram Paulino Neutrophils/100 WBC (Bld) 54.8 % Normal 43.0-75.0 [facility] Comment on above: Performed By: #### C MP, LIPID, TSH #### [facility] [address] [place] [address] Dr. Bertram Paulino Platelet mean volume (Bld) [Entitic vol] 10.3 fL Normal 9.5-13.5 [facility] Comment on above: Performed By: #### C MP, LIPID, TSH #### [facility] [address] [place] [address] Dr. Bertram Paulino PLT 269 103/ul Normal 150-450 [facility] Comment on above: Performed By: #### C MP, LIPID, TSH #### [facility] [address] [place] [address] Dr. Bertram Paulino RBC 4.27 106/ul Normal 4.20-5.40 [facility] Comment on above: Performed By: #### C MP, LIPID, TSH #### [facility] [address] [place] [address] Dr. Bertram Paulino WBC 6.1 103/ul Normal 4.0-11.0 [facility] Comment on above: Performed By: #### C MP, LIPID, TSH #### [facility] [address] [address] [address] Bertram Paulino FREE T4on 01-12-2023 Free T4 [Mass/Vol] 1.00 ng/dL Normal 0.76-1.46 [facility] Comment on above: Performed By: #### C MP, LIPID, TSH #### [facility] [address] [address] [address] Bertram Paulino GLYCOHEMOGLOBIN A1Con 2022 ADA RECOMMENDATION SEE BELOW Normal [facility] Comment on above: Result Comment: ADA RECOMMENDED LIMIT 4.0 - 6.0 ADA THERAPEUTIC TARGET < 7.0 ACTION SUGGESTED > 7.0 Performed By: #### C MP, LIPID, TSH #### [facility] [address] [place] [address] Dr. Bertram Paulino Glucose [Mass/Vol] 126 mg/dL Normal [facility] Comment on above: Performed By: #### C MP, LIPID, TSH #### [facility] [address] [address] [address] Bertram Paulino HbA1c (Bld) [Mass fraction] 6.0 % Normal 4.5-6.2 [facility] Comment on above: Performed By: #### C MP, LIPID, TSH #### [facility] [address] [place] [address] Dr. Bertram Paulino LIPID PROFILEon 01-12-2023 CHOL-HDL RATIO NORM SEE BELOW Normal [facility] Comment on above: Result Comment: 3.3 - 4.4 LOW RISK 4.4 - 7.1 AVERAGE RISK 7.1 - 11.0 MODERATE RISK >11.0 HIGH RISK Performed By: #### C MP, LIPID, TSH #### [facility] [address] [place] [address] Dr. Bertram Paulino Cholesterol [Mass/Vol] 222 mg/dL Critically high <=200 [facility] Comment on above: Performed By: #### C MP, LIPID, TSH #### [facility] [address] [address] [address] Bertram Paulino Cholesterol in HDL [Mass/Vol] 44 mg/dL Normal 40-60 [facility] Comment on above: Performed By: #### C MP, LIPID, TSH #### [facility] [address] [address] [address] Bertram Paulino Cholesterol in LDL [Mass/Vol] 132.4 mg/dL Normal [facility] Comment on above: Performed By: #### C MP, LIPID, TSH #### [facility] [address] [address] [address] Bertram Paulino Cholesterol.total/Ch olesterol in HDL [Mass ratio] 5.0 {ratio} Normal [facility] Comment on above: Performed By: #### C MP, LIPID, TSH #### [facility] [address] [address] [address] Bertram Paulino HDL NORMAL > or = 60 mg/dl - LO W CARDIOVASCULAR RISK <40 mg/dl - HIGH CARDIOVASCULAR RISK Normal [facility] Comment on above: Performed By: #### C MP, LIPID, TSH #### [facility] [address] [address] [address] Bertram Paulino LDL CALC NORMAL SEE BELOW Normal [facility] Comment on above: Result Comment: <100 mg/dl OPTIMAL 100 - 129 mg/dl NEAR OR ABOVE OPTIMAL 130 - 159 mg/dl BORDERLINE HIGH 160 - 189 mg/dl HIGH >190 mg/dl VERY HIGH Performed By: #### C MP, LIPID, TSH #### [facility] [address] [address] [address] Bertram Paulino Triglyceride [Mass/Vol] 228 mg/dL Critically high <=150 [facility] Comment on above: Performed By: #### C MP, LIPID, TSH #### [facility] [address] [address] [address] Bertram Paulino VLDL CALC 45.6 mg/dL Normal [facility] Comment on above: Performed By: #### C MP, LIPID, TSH #### [facility] [address] [address] [address] Bertram Paulino PROF 14(COMP METB)on 023 Albumin [Mass/Vol] 3.8 g/dL Normal 3.4-5.0 [facility] Comment on above: Performed By: #### C MP, LIPID, TSH #### [facility] [address] [address] [address] Betrram Paulino Albumin/Globulin [Mass ratio] 1.2 {ratio} Normal [facility] Comment on above: Performed By: #### C MP, LIPID, TSH #### [facility] [address] [address] [address] Bertram Paulino ALP [Catalytic activity/Vol] 66 U/L Normal 46-116 [facility] Comment on above: Performed By: #### C MP, LIPID, TSH #### [facility] [address] [address] [address] Bertram Paulino ALT [Catalytic activity/Vol] 45 U/L Normal 14-59 [facility] Comment on above: Performed By: #### C MP, LIPID, TSH #### [facility] [address] [address] [address] Bertram Paulino Anion gap [Moles/Vol] 12.8 mmol/L Normal [facility] Comment on above: Performed By: #### C MP, LIPID, TSH #### [facility] [address] [address] [address] Bertram Paulino AST [Catalytic activity/Vol] 29 U/L Normal 15-37 [facility] Comment on above: Performed By: #### C MP, LIPID, TSH #### [facility] [address] [address] [address] Bertram Paulino Bilirubin [Mass/Vol] 0.4 mg/dL Normal 0.2-1.0 [facility] Comment on above: Performed By: #### C MP, LIPID, TSH #### [facility] [address] [address] [address] Bertram Paulino Calcium [Mass/Vol] 9.1 mg/dL Normal 8.5-10.1 [facility] Comment on above: Performed By: #### C MP, LIPID, TSH #### [facility] [address] [address] [address] Bertram Paulino Chloride [Moles/Vol] 104 mmol/L Normal 98-107 [facility] Comment on above: Performed By: #### C MP, LIPID, TSH #### [facility] [address] [address] [address] Bertram Paulino CO2 [Moles/Vol] 27.2 mmol/L Normal 21.0-32.0 [facility] Comment on above: Performed By: #### C MP, LIPID, TSH #### [facility] [address] [address] [address] Bertram Paulino Creatinine [Mass/Vol] 0.65 mg/dL Normal 0.55-1.02 [facility] Comment on above: Performed By: #### C MP, LIPID, TSH #### [facility] [address] [place] [address] Dr. Bertram Paulino EGFR-AF CO[place] RICAN >60 Normal >=60 [facility] Comment on above: Performed By: #### C MP, LIPID, TSH #### [facility] [address] [place] [address] Dr. Bertram Paulino EGFR-NON AF [place] >60 Normal >=60 [facility] Comment on above: Performed By: #### C MP, LIPID, TSH #### [facility] [address] [place] [address] Dr. Bertram Paulino Globulin (S) [Mass/Vol] 3.1 g/dL Normal [facility] Comment on above: Performed By: #### C MP, LIPID, TSH #### [facility] [address] [place] [address] Dr. Bertram Paulino Glucose [Mass/Vol] 123 mg/dL Critically high 74-106 [facility] Comment on above: Performed By: #### C MP, LIPID, TSH #### [facility] [address] [place] [address] Dr. Bertram Paulino Potassium [Moles/Vol] 4.0 mmol/L Normal 3.5-5.1 [facility] Comment on above: Performed By: #### C MP, LIPID, TSH #### [facility] [address] [place] [address] Dr. Bertram Paulino Protein [Mass/Vol] 6.9 g/dL Normal 6.4-8.2 [facility] Comment on above: Performed By: #### C MP, LIPID, TSH #### [facility] [address] [place] [address] Dr. Bertram Paulino Sodium [Moles/Vol] 140 mmol/L Normal 136-145 [facility] Comment on above: Performed By: #### C MP, LIPID, TSH #### [facility] [address] [place] [address] Dr. Bertram Paulino Urea nitrogen [Mass/Vol] 6.0 mg/dL Critically low 7.0-18.0 [facility] Comment on above: Performed By: #### C MP, LIPID, TSH #### [facility] [address] [place] [address] Dr. Bertram Paulino Urea nitrogen/Creatinine [Mass ratio] 9.2 mg/mg Normal [facility] Comment on above: Performed By: #### C MP, LIPID, TSH #### [facility] [address] [place] [address] Dr. Bertram Paulino SED RATE [facility] 2022 SED RATE 23 mm/hr Normal <=30 [facility] Comment on above: Performed By: #### C MP, LIPID, TSH #### [facility] [address] [place] [address] Dr. Bertram Paulino TSHon 01-12-2023 TSH 2.215 uIU/mL Normal 0.358-3.740 [facility] Comment on above: Performed By: #### C MP, LIPID, TSH #### [facility] [address] [place] [address] CHEST W CONon [...] by: PASTOR ESPANA Date: 2022-08-10 06:47 Normal [facility] XR CHEST 2 Von 07-11-2022 XR CHEST [...] by: VANESSA PRESLEY Date: 2022-07-11 07:11 Normal [facility] Progress Noteson 07-05-2022 Engineering Assistant Authentication Interface Message Text Documentation: Mode: Telephone Patient Patient Work Phone: Patient Cell Preferred phone: [phone] Consent: I confirmed patient understanding of the risks and benefits of telehealth visits and obtained consent to proceed with the telehealth visit. 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 Bertram Paulino Basophils/100 WBC (Bld) 0.2 % Normal 0.2-2.0 [facility] Comment on above: Performed By: #### C MP, LIPID, TSH #### [facility] [address] [address] [address] Bertram Paulino EO # 0.1 103/ul Normal 0.0-0.7 [facility] Comment on above: Performed By: #### C MP, LIPID, TSH #### [facility] [address] [address] [address] Bertram Paulino Eosinophils/100 WBC (Bld) 0.7 % Critically low 0.9-7.0 [facility] Comment on above: Performed By: #### C MP, LIPID, TSH #### [facility] [address] [place] [address] Dr. Bertram Paulino Erythrocyte distribution width (RBC) [Ratio] 12.9 % Normal 11.0-15.0 [facility] Comment on above: Performed By: #### C MP, LIPID, TSH #### [facility] [address] [place] [address] Dr. Bertram Paulino Hematocrit (Bld) [Volume fraction] 41.5 % Normal 36.0-48.0 [facility] Comment on above: Performed By: #### C MP, LIPID, TSH #### [facility] [address] [place] [address] Dr. Bertram Paulino Hemoglobin (Bld) [Mass/Vol] 14.1 g/dL Normal 12.0-16.0 [facility] Comment on above: Performed By: #### C MP, LIPID, TSH #### [facility] [address] [place] [address] Dr. Bertram Paulino IG # 0.03 10e3/ul Normal 0.00-0.03 [facility] Comment on above: Performed By: #### C MP, LIPID, TSH #### [facility] [address] [place] [address] Dr. Bertram Paulino IG % 0.3 % Normal 0.0-0.5 [facility] Comment on above: Performed By: #### C MP, LIPID, TSH #### [facility] [address] [place] [address] Dr. Bertram Paulino LYMPH # 2.4 103/ul Normal 1.2-3.8 [facility] Comment on above: Performed By: #### C MP, LIPID, TSH #### [facility] [address] [place] [address] Dr. Bertram Paulino Lymphocytes/100 WBC (Bld) 27.6 % Normal 20.5-60.0 [facility] Comment on above: Performed By: #### C MP, LIPID, TSH #### [facility] [address] [place] [address] Dr. Bertram Paulino MANUAL DIFF REQ NO Normal [facility] Comment on above: Performed By: #### C MP, LIPID, TSH #### [facility] [address] [place] [address] Dr. Bertram Paulino MCH (RBC) [Entitic mass] 29.7 pg Normal 26.7-34.0 [facility] Comment on above: Performed By: #### C MP, LIPID, TSH #### [facility] [address] [place] [address] Dr. Bertram Paulino MCHC (RBC) [Mass/Vol] 34.0 g/dL Normal 29.9-35.2 [facility] Comment on above: Performed By: #### C MP, LIPID, TSH #### [facility] [address] [place] [address] Dr. Bertram Paulino MCV (RBC) [Entitic vol] 87.6 fL Normal 81.0-99.0 [facility] Comment on above: Performed By: #### C MP, LIPID, TSH #### [facility] [address] [place] [address] Dr. Bertram Paulino MONO # 0.6 103/ul Normal 0.3-0.8 [facility] Comment on above: Performed By: #### C MP, LIPID, TSH #### [facility] [address] [place] [address] Dr. Bertram Paulino Monocytes/100 WBC (Bld) 6.8 % Normal 1.7-12.0 [facility] Comment on above: Performed By: #### C MP, LIPID, TSH #### [facility] [address] [place] [address] Dr. Bertram Paulino NEUT # 5.6 103/ul Normal 1.4-6.5 [facility] Comment on above: Performed By: #### C MP, LIPID, TSH #### [facility] [address] [place] [address] Dr. Bertram Paulino Neutrophils/100 WBC (Bld) 64.4 % Normal 43.0-75.0 [facility] Comment on above: Performed By: #### C MP, LIPID, TSH #### [facility] [address] [address] [address] Bertram Paulino Platelet mean volume (Bld) [Entitic vol] 10.0 fL Normal 9.5-13.5 [facility] Comment on above: Performed By: #### C MP, LIPID, TSH #### [facility] [address] [address] [address] Bertram Paulino PLT 326 103/ul Normal 150-450 [facility] Comment on above: Performed By: #### C MP, LIPID, TSH #### [facility] [address] [address] [address] Betrram Paulino RBC 4.74 106/ul Normal 4.20-5.40 [facility] Comment on above: Performed By: #### C MP, LIPID, TSH #### [facility] [address] [place] [address] Dr. Bertram Paulino WBC 8.7 103/ul Normal 4.0-11.0 [facility] Comment on above: Performed By: #### C MP, LIPID, TSH #### [facility] [address] [place] [address] Dr. Bertram Paulino ER URINE PROFILEon 2 Bilirubin Ql (U) Negative Normal NEGATIVE [facility] Comment on above: Performed By: #### C MP, LIPID, TSH #### [facility] [address] [place] [address] Dr. Bertram Paulino Clarity (U) CLEAR Normal CLEAR [facility] Comment on above: Performed By: #### C MP, LIPID, TSH #### [facility] [address] [place] [address] Dr. Bertram Paulino Color (U) LT. YELLOW Normal YELLOW [facility] Comment on above: Performed By: #### C MP, LIPID, TSH #### [facility] [address] [place] [address] Dr. Bertram Paulino ERUAHD A micrscopic examination will be performed if indicated. Normal [facility] Comment on above: Performed By: #### C MP, LIPID, TSH #### [facility] [address] [address] [address] Bertram Paulino Glucose Ql (U) Negative Normal NEGATIVE [facility] Comment on above: Performed By: #### C MP, LIPID, TSH #### [facility] [address] [address] [address] Bertram Paulino Hemoglobin Ql (U) Negative Normal NEGATIVE [facility] Comment on above: Performed By: #### C MP, LIPID, TSH #### [facility] [address] [address] [address] Bertram Paulino Ketones Ql (U) TRACE Abnormal NEGATIVE [facility] Comment on above: Performed By: #### C MP, LIPID, TSH #### [facility] [address] [place] [address] Dr. Bertram Paulino LEUKOCYTES Negative Normal NEGATIVE [facility] Comment on above: Performed By: #### C MP, LIPID, TSH #### [facility] [address] [address] [address] Bertram Paulino Nitrite Ql (U) Negative Normal NEGATIVE [facility] Comment on above: Performed By: #### C MP, LIPID, TSH #### [facility] [address] [place] [address] Dr. Bertram Paulino pH (U) 6.0 [pH] Normal 5-9 [facility] Comment on above: Performed By: #### C MP, LIPID, TSH #### [facility] [address] [address] [address] Bertram Paulino SPEC GRAVITY <=1.005 Abnormal 1.005-<=1.025 [facility] Comment on above: Performed By: #### C MP, LIPID, TSH #### [facility] [address] [address] [address] Bertram Paulino UA PROTEIN Negative Normal NEGATIVE/ TRACE [facility] Comment on above: Performed By: #### C MP, LIPID, TSH #### [facility] [address] [place] [address] Dr. Bertram Paulino UR MICRO IND NOT INDICATED Normal [facility] Comment on above: Performed By: #### C MP, LIPID, TSH #### [facility] [address] [address] [address] Bertram Paulino Urobilinogen Qn (U) 0.2 {Yazmin'U}/dL Normal 0.2 - 1. 0 [facility] Comment on above: Performed By: #### C MP, LIPID, TSH #### [facility] [address] [address] [address] Bertram Paulino LACTATE/LACTIC ACIDon 2021 Lactate [Moles/Vol] 1.2 mmol/L Normal 0.4-1.9 [facility] Comment on above: Performed By: #### C MP, LIPID, TSH #### [facility] [address] [place] [address] Dr. Bertram Paulino MONOon 07-01-2022 Monocytes (Bld) [#/Vol] Negative Normal NEGATIVE [facility] Comment on above: Performed By: #### M VENUS ####[facility] [id number] [address]Dr. Bertram Paulino PROF 14(COMP METB)on 022 Albumin [Mass/Vol] 4.1 g/dL Normal 3.4-5.0 [facility] Comment on above: Performed By: #### C MP, LIPID, TSH #### [facility] [address] [place] [address] Dr. Bertram Paulino Albumin/Globulin [Mass ratio] 1.1 {ratio} Normal [facility] Comment on above: Performed By: #### C MP, LIPID, TSH #### [facility] [address] [address] [address] Bertram Paulino ALP [Catalytic activity/Vol] 57 U/L Normal 46-116 [facility] Comment on above: Performed By: #### C MP, LIPID, TSH #### [facility] [address] [address] [address] Bertram Paulino ALT [Catalytic activity/Vol] 38 U/L Normal 14-59 [facility] Comment on above: Performed By: #### C MP, LIPID, TSH #### [facility] [address] [address] [address] Bertram Paulino Anion gap [Moles/Vol] 13.9 mmol/L Normal [facility] Comment on above: Performed By: #### C MP, LIPID, TSH #### [facility] [address] [address] [address] Bertram Paulino AST [Catalytic activity/Vol] 22 U/L Normal 15-37 [facility] Comment on above: Performed By: #### C MP, LIPID, TSH #### [facility] [address] [address] [address] Bertram Paulino Bilirubin [Mass/Vol] 0.7 mg/dL Normal 0.2-1.0 [facility] Comment on above: Performed By: #### C MP, LIPID, TSH #### [facility] [address] [place] [address] Dr. Bertram Paulino Calcium [Mass/Vol] 9.6 mg/dL Normal 8.5-10.1 [facility] Comment on above: Performed By: #### C MP, LIPID, TSH #### [facility] [address] [address] [address] Bertram Paulino Chloride [Moles/Vol] 98 mmol/L Normal 98-107 [facility] Comment on above: Performed By: #### C MP, LIPID, TSH #### [facility] [address] [address] [address] Bertram Paulino CO2 [Moles/Vol] 27.4 mmol/L Normal 21.0-32.0 [facility] Comment on above: Performed By: #### C MP, LIPID, TSH #### [facility] [address] [address] [address] Bertram Paulino Creatinine [Mass/Vol] 0.85 mg/dL Normal 0.55-1.02 [facility] Comment on above: Performed By: #### C MP, LIPID, TSH #### [facility] [address] [address] [address] Bertram Paulino EGFR-AF CO[place] RICAN >60 Normal >=[address] [facility] Comment on above: Performed By: #### C MP, LIPID, TSH #### [facility] [address] [address] [address] Bertram Paulino EGFR-NON AF [place] >60 Normal >=60 [facility] Comment on above: Performed By: #### C MP, LIPID, TSH #### [facility] [address] [address] [address] Bertram Paulino Globulin (S) [Mass/Vol] 3.6 g/dL Normal [facility] Comment on above: Performed By: #### C MP, LIPID, TSH #### [facility] [facility] [address] [address] [address] Bertram Paulino Glucose [Mass/Vol] 99 mg/dL Normal 74-106 [facility] Comment on above: Performed By: #### C MP, LIPID, TSH #### [facility] [address] [address] [address] Bertram Paulino Potassium [Moles/Vol] 3.3 mmol/L Critically low 3.5-5.1 [facility] Comment on above: Performed By: #### C MP, LIPID, TSH #### [facility] [address] [address] [address] Bertram Paulino Protein [Mass/Vol] 7.7 g/dL Normal 6.4-8.2 [facility] Comment on above: Performed By: #### C MP, LIPID, TSH #### [facility] [address] [address] [address] Bertram Paulino Sodium [Moles/Vol] 136 mmol/L Normal 136-145 [facility] Comment on above: Performed By: #### C MP, LIPID, TSH #### [facility] [address] [address] [address] Bertram Paulino Urea nitrogen [Mass/Vol] 13.0 mg/dL Normal 7.0-18.0 [facility] Comment on above: Performed By: #### C MP, LIPID, TSH #### [facility] [address] [address] [address] Bertram Paulino Urea nitrogen/Creatinine [Mass ratio] 15.3 mg/mg Normal [facility] Comment on above: Performed By: #### C MP, LIPID, TSH #### [facility] [address] [address] [address] Bertram Paulino TROPONIN, HIGH SENSITIVITYon 07-01-2022 HSTROP 6.5 pg/mL Normal 4.0-51.3 [facility] Comment on above: Result Comment: CUT- OFF POINTS HAVE BEEN ESTABLISHED BASED ON THE FOURTH UNIVERSAL DEFINITIONS OF MYOCARDIAL INFARCTION. THE UPPER REFERENCE LIMIT (URL) OF TROPONIN, DEFINED THE 99TH PERCENTILE OF cTnI DISTRIBUTION IN A REFERENCE POPULATION, HAS BEEN CONFIRMED THE DECISION THRESHOLD FOR PA DIAGNOSIS. Performed By: #### T SH, CMP, HSTROPN ####[facility] [id number] [address]Dr. Bertram Paulino TSHon 07-01-2022 TSH 2.596 uIU/mL Normal 0.358-3.740 [facility] Comment on above: Performed By: #### T SH, CMP, HSTROPN ####[facility] [id number] [address]Dr. Bertram Paulino STOOL CULTUREon 06-10-2022 Campylobacter Culture Final report Normal [facility] Comment on above: Performed By: #### C MP, LIPID, TSH #### [facility] [address] [address] [address] Bertram Paulino E coli Shiga Toxin EIA Negative Normal Negative [facility] Comment on above: Performed By: #### C MP, LIPID, TSH #### [facility] [address] [address] [address] Bertram Paulino Result 1 Comment Normal [facility] Comment on above: Result Comment: No S almonella or Shigella recovered. Performed By: #### C MP, LIPID, TSH #### [facility] [address] [address] [address] Bertram Paulino Result Comment: No C ampylobacter species isolated. Salmonella/Shigella Screen Final report Normal [facility] Comment on above: Performed By: #### C MP, LIPID, TSH #### [facility] [address] [address] [address] Bertram Paulino OVA AND PARASITE EXAMINATION on 06-09-2022 Ova + Parasite Exam Final report Normal [facility] Comment on above: Result Comment: Thes e results were obtained using wet preparation(s) and trichrome stained smear. This test does not include testing for Cryptosporidium parvum, Cyclospora, or Microsporidia. Performed By: #### O VAPE ####[facility] [id number] [address]Dr. Bertram Paulino Result 1 Comment Normal [facility] Comment on above: Result Comment: No o va, cysts, or parasites seen. . One negative specimen does not rule out the possibility of a parasitic infection. Performed By: #### O VAPE ####[facility] [id number] [id number]. Bertram Paulino CLOSTRIDIUM DIFFICILE PCRon 06-07-2022 C difficile Toxin Gene KIRT Negative Normal Negative [facility] Comment on above: Performed By: #### C DIFNAA #### [facility] [address] [place] [address] Dr. Bertram Paulino OCC BLD IMMUNO SCREENon 05-14 OCCULT BLOOD Negative Normal NEGATIVE [facility] Comment on above: Performed By: #### C MP, LIPID, TSH #### [facility] [address] [address] [address] Bertram Paulino CARDIAC ERASMO 3-6on 2 CK [Catalytic activity/Vol] 109 U/L Normal 26-192 [facility] Comment on above: Performed By: #### C MP, LIPID, TSH #### [facility] [address] [place] [address] Dr. Bertram Paulino CK.MB [Mass/Vol] 1.63 ng/mL Normal <=3.[address] [facility] Comment on above: Performed By: #### C MP, LIPID, TSH #### [facility] [address] [place] [address] Dr. Bertram Paulino HSTROP 6.0 pg/mL Normal 4.0-51.3 [facility] Comment on above: Result Comment: CUT- OFF POINTS HAVE BEEN ESTABLISHED BASED ON THE FOURTH UNIVERSAL DEFINITIONS OF MYOCARDIAL INFARCTION. THE UPPER REFERENCE LIMIT (URL) OF TROPONIN, DEFINED THE 99TH PERCENTILE OF cTnI DISTRIBUTION IN A REFERENCE POPULATION, HAS BEEN CONFIRMED THE DECISION THRESHOLD FOR PA DIAGNOSIS. Performed By: #### C MP, LIPID, TSH #### [facility] [address] [address] [address] Bertram Paulino CK [Catalytic activity/Vol] 101 U/L Normal 26-192 [facility] Comment on above: Performed By: #### C MREP ####[facility] [id number] [address]Dr. Bertram Paulino CK.MB [Mass/Vol] 1.60 ng/mL Normal <=3.[address] [facility] Comment on above: Performed By: #### C MREP ####[facility] [id number] [address]Dr. Bertram Paulino HSTROP 5.8 pg/mL Normal 4.0-51.3 [facility] Comment on above: Result Comment: CUT- OFF POINTS HAVE BEEN ESTABLISHED BASED ON THE FOURTH UNIVERSAL DEFINITIONS OF MYOCARDIAL INFARCTION. THE UPPER REFERENCE LIMIT (URL) OF TROPONIN, DEFINED THE 99TH PERCENTILE OF cTnI DISTRIBUTION IN A REFERENCE POPULATION, HAS BEEN CONFIRMED THE DECISION THRESHOLD FOR PA DIAGNOSIS. Performed By: #### C MREP ####[facility] [id number] [address]Dr. Bertram Paulino CBC AUTO DIFFon 05-15-2022 BASO # 0.1 103/ul Normal 0.0-0.1 [facility] Comment on above: Performed By: #### C MP, LIPID, TSH #### [facility] [address] [address] [address] Bertram Paulino Basophils/100 WBC (Bld) 0.8 % Normal 0.2-2.0 [facility] Comment on above: Performed By: #### C MP, LIPID, TSH #### [facility] [address] [address] [address] Bertram Paulino EO # 0.2 103/ul Normal 0.0-0.7 [facility] Comment on above: Performed By: #### C MP, LIPID, TSH #### [facility] [address] [place] [address] Dr. Bertram Paulino Eosinophils/100 WBC (Bld) 2.9 % Normal 0.9-7.0 [facility] Comment on above: Performed By: #### C MP, LIPID, TSH #### [facility] [address] [place] [address] Dr. Bertram Paulino Erythrocyte distribution width (RBC) [Ratio] 13.5 % Normal 11.0-15.0 [facility] Comment on above: Performed By: #### C MP, LIPID, TSH #### [facility] [address] [place] [address] Dr. Bertram Paulino Hematocrit (Bld) [Volume fraction] 34.4 % Critically low 36.0-48.0 [facility] Comment on above: Performed By: #### C MP, LIPID, TSH #### [facility] [address] [place] [address] Dr. Bertram Paulino Hemoglobin (Bld) [Mass/Vol] 11.8 g/dL Critically low 12.0-16.0 [facility] Comment on above: Performed By: #### C MP, LIPID, TSH #### [facility] [address] [place] [address] Dr. Bertram Paulino IG # 0.03 10e3/ul Normal 0.00-0.03 [facility] Comment on above: Performed By: #### C MP, LIPID, TSH #### [facility] [address] [place] [address] Dr. Bertram Paulino IG % 0.5 % Normal 0.0-0.5 [facility] Comment on above: Performed By: #### C MP, LIPID, TSH #### [facility] [address] [place] [address] Dr. Bertram Paulino LYMPH # 2.7 103/ul Normal 1.2-3.8 [facility] Comment on above: Performed By: #### C MP, LIPID, TSH #### [facility] [address] [place] [address] Dr. Bertram Paulino Lymphocytes/100 WBC (Bld) 41.3 % Normal 20.5-60.0 [facility] Comment on above: Performed By: #### C MP, LIPID, TSH #### [facility] [address] [place] [address] Dr. Bertram Paulino MANUAL DIFF REQ NO Normal [facility] Comment on above: Performed By: #### C MP, LIPID, TSH #### [facility] [address] [place] [address] Dr. Bertram Paulino MCH (RBC) [Entitic mass] 29.9 pg Normal 26.7-34.0 [facility] Comment on above: Performed By: #### C MP, LIPID, TSH #### [facility] [address] [place] [address] Dr. Bertram Paulino MCHC (RBC) [Mass/Vol] 34.3 g/dL Normal 29.9-35.2 [facility] Comment on above: Performed By: #### C MP, LIPID, TSH #### [facility] [address] [place] [address] Dr. Bertram Paulino MCV (RBC) [Entitic vol] 87.3 fL Normal 81.0-99.0 [facility] Comment on above: Performed By: #### C MP, LIPID, TSH #### [facility] [address] [place] [address] Dr. Bertram Paulino MONO # 0.6 103/ul Normal 0.3-0.8 [facility] Comment on above: Performed By: #### C MP, LIPID, TSH #### [facility] [address] [place] [address] Dr. Bertram Paulino Monocytes/100 WBC (Bld) 9.6 % Normal 1.7-12.0 [facility] Comment on above: Performed By: #### C MP, LIPID, TSH #### [facility] [address] [place] [address] Dr. Bertram Paulino NEUT # 2.9 103/ul Normal 1.4-6.5 [facility] Comment on above: Performed By: #### C MP, LIPID, TSH #### [facility] [address] [place] [address] Dr. Bertram Paulino Neutrophils/100 WBC (Bld) 44.9 % Normal 43.0-75.0 [facility] Comment on above: Performed By: #### C MP, LIPID, TSH #### [facility] [address] [address] [address] Bertram Paulino Platelet mean volume (Bld) [Entitic vol] 11.0 fL Normal 9.5-13.5 [facility] Comment on above: Performed By: #### C MP, LIPID, TSH #### [facility] [address] [address] [address] Bertram Paulino PLT 281 103/ul Normal 150-450 [facility] Comment on above: Performed By: #### C MP, LIPID, TSH #### [facility] [address] [address] [address] Bertram Paulino RBC 3.94 106/ul Critically low 4.20-5.40 [facility] Comment on above: Performed By: #### C MP, LIPID, TSH #### [facility] [address] [address] [address] Bertram Paulino WBC 6.5 103/ul Normal 4.0-11.0 [facility] Comment on above: Performed By: #### C MP, LIPID, TSH #### [facility] [address] [address] [address] Bertram Paulino CTA CHEST WO W [...] represent chronic peripheral scarring. Electronically authenticated by: MELANI BETANCOURT Date: 2022-05-14 23:01 Normal [facility] Covid-19 PCR (CVDTB)on SARS-CoV-2 (COVID-19) RNA KIRT+probe Ql (Unsp spec) Not detected Normal NOT DETECTED [facility] Comment on above: Result Comment: When diagnostic [...] for this test is supported by the Table Keeper of Health and Human Service's declaration that [...] By: #### C MP, LIPID, TSH #### [facility] [address] [place] [address] [id number] [address] Bertram Paulino PROF 14(COMP METB)on 022 Albumin [Mass/Vol] 3.3 g/dL Critically low 3.4-5.0 [facility] Comment on above: Performed By: #### C MP, LIPID, TSH #### [facility] [address] [address] [address] Bertram Paulino Albumin/Globulin [Mass ratio] 1.1 {ratio} Normal [facility] Comment on above: Performed By: #### C MP, LIPID, TSH #### [facility] [address] [address] [address] Bertram Paulino ALP [Catalytic activity/Vol] 47 U/L Normal 46-116 [facility] Comment on above: Performed By: #### C MP, LIPID, TSH #### [facility] [address] [place] [address] Dr. Bertram Paulino ALT [Catalytic activity/Vol] 42 U/L Normal 14-59 [facility] Comment on above: Performed By: #### C MP, LIPID, TSH #### [facility] [address] [place] [address] Dr. Bertram Paulino Anion gap [Moles/Vol] 14.3 mmol/L Normal [facility] Comment on above: Performed By: #### C MP, LIPID, TSH #### [facility] [address] [place] [address] Dr. Berrtam Paulino AST [Catalytic activity/Vol] 20 U/L Normal 15-37 [facility] Comment on above: Performed By: #### C MP, LIPID, TSH #### [facility] [address] [place] [address] Dr. Bertram Paulino Bilirubin [Mass/Vol] 0.3 mg/dL Normal 0.2-1.0 [facility] Comment on above: Performed By: #### C MP, LIPID, TSH #### [facility] [address] [place] [address] Dr. Bertram Paulino Calcium [Mass/Vol] 9.0 mg/dL Normal 8.5-10.1 [facility] Comment on above: Performed By: #### C MP, LIPID, TSH #### [facility] [address] [place] [address] Dr. Bertram Paulino Chloride [Moles/Vol] 105 mmol/L Normal 98-107 [facility] Comment on above: Performed By: #### C MP, LIPID, TSH #### [facility] [address] [address] [address] Bertram Paulino CO2 [Moles/Vol] 26.5 mmol/L Normal 21.0-32.[address] [facility] Comment on above: Performed By: #### C MP, LIPID, TSH #### [facility] [address] [address] [address] Bertram Paulino Creatinine [Mass/Vol] 0.77 mg/dL Normal 0.55-1.02 [facility] Comment on above: Performed By: #### C MP, LIPID, TSH #### [facility] [address] [address] [address] Bertram Paulino EGFR-AF [place] >60 Normal >=[address] [facility] Comment on above: Performed By: #### C MP, LIPID, TSH #### [facility] [address] [address] [address] Bertram Paulino EGFR-NON AF [place] >60 Normal >=60 [facility] Comment on above: Performed By: #### C MP, LIPID, TSH #### [facility] [address] [address] [address] Bertram Paulino Globulin (S) [Mass/Vol] 3.1 g/dL Normal [facility] Comment on above: Performed By: #### C MP, LIPID, TSH #### [facility] [address] [address] [address] Bertram Paulino Glucose [Mass/Vol] 99 mg/dL Normal 74-106 [facility] Comment on above: Performed By: #### C MP, LIPID, TSH #### [facility] [address] [address] [address] Bertram Paulino Potassium [Moles/Vol] 3.8 mmol/L Normal 3.5-5.1 [facility] Comment on above: Performed By: #### C MP, LIPID, TSH #### [facility] [address] [address] [address] Bertram Paulino Protein [Mass/Vol] 6.4 g/dL Normal 6.4-8.2 [facility] Comment on above: Performed By: #### C MP, LIPID, TSH #### [facility] [address] [address] [address] Bertram Paulino Sodium [Moles/Vol] 142 mmol/L Normal 136-145 [facility] Comment on above: Performed By: #### C MP, LIPID, TSH #### [facility] [address] [place] [address] Dr. Bertram Paulino Urea nitrogen [Mass/Vol] 8.0 mg/dL Normal 7.0-18.0 [facility] Comment on above: Performed By: #### C MP, LIPID, TSH #### [facility] [address] [place] [address] Dr. Bertram Paulino Urea nitrogen/Creatinine [Mass ratio] 10.4 mg/mg Normal [facility] Comment on above: Performed By: #### C MP, LIPID, TSH #### [facility] [address] [place] [address] Dr. Bertram Paulino UA (CLEAN/CATCH) GLUE DRIER OPERATOR/MICRO I F IND.on 05-15-2022 Bilirubin Ql (U) Negative Normal NEGATIVE [facility] Comment on above: Performed By: #### C MP, LIPID, TSH #### [facility] [address] [place] [address] Dr. Bertram Paulino Clarity (U) SL CLOUDY Abnormal CLEAR [facility] Comment on above: Performed By: #### C MP, LIPID, TSH #### [facility] [address] [place] [address] Dr. Bertram Paulino Color (U) LT. YELLOW Normal YELLOW [facility] Comment on above: Performed By: #### C MP, LIPID, TSH #### [facility] [address] [place] [address] Dr. Bertram Paulino Glucose Ql (U) Negative Normal NEGATIVE [facility] Comment on above: Performed By: #### C MP, LIPID, TSH #### [facility] [address] [place] [address] Dr. Bertram Paulino Hemoglobin Ql (U) Negative Normal NEGATIVE [facility] Comment on above: Performed By: #### C MP, LIPID, TSH #### [facility] [address] [address] [address] Bertram Paulino Ketones Ql (U) Negative Normal NEGATIVE [facility] Comment on above: Performed By: #### C MP, LIPID, TSH #### [facility] [address] [place] [address] Dr. Bertram Paulino LEUKOCYTES Negative Normal NEGATIVE [facility] Comment on above: Performed By: #### C MP, LIPID, TSH #### [facility] [address] [address] [address] Bertram Paulino Nitrite Ql (U) Negative Normal NEGATIVE [facility] Comment on above: Performed By: #### C MP, LIPID, TSH #### [facility] [address] [place] [address] Dr. Bertram Paulino pH (U) 5.5 [pH] Normal 5-9 [facility] Comment on above: Performed By: #### C MP, LIPID, TSH #### [facility] [address] [place] [address] Dr. Bertram Paulino SPEC GRAVITY 1.010 Normal 1.005-<=1.025 [facility] Comment on above: Performed By: #### C MP, LIPID, TSH #### [facility] [address] [place] [address] Dr. Bertram Paulino UA PROTEIN Negative Normal NEGATIVE/ TRACE [facility] Comment on above: Performed By: #### C MP, LIPID, TSH #### [facility] [address] [place] [address] Dr. Bertram Paulino UR MICRO IND NOT INDICATED Normal [facility] Comment on above: Performed By: #### C MP, LIPID, TSH #### [facility] [address] [place] [address] Dr. Bertram Paulino Urobilinogen Qn (U) 0.2 {Yazmin'U}/dL Normal 0.2 - 1. 0 [facility] Comment on above: Performed By: #### C MP, LIPID, TSH #### [facility] [address] [place] [address] Dr. Bertram Paulino CARDIAC ERASMO ADMITon 022 CK [Catalytic activity/Vol] 117 U/L Normal 26-192 [facility] Comment on above: Performed By: #### C MP, LIPID, TSH #### [facility] [address] [place] [address] Dr. Bertram Paulino CK.MB [Mass/Vol] 2.08 ng/mL Normal <=3.[address] [facility] Comment on above: Performed By: #### C MP, LIPID, TSH #### [facility] [address] [address] [address] Bertram Paulino HSTROP 4.7 pg/mL Normal 4.0-51.3 [facility] Comment on above: Result Comment: CUT- OFF POINTS HAVE BEEN ESTABLISHED BASED ON THE FOURTH UNIVERSAL DEFINITIONS OF MYOCARDIAL INFARCTION. THE UPPER REFERENCE LIMIT (URL) OF TROPONIN, DEFINED THE 99TH PERCENTILE OF cTnI DISTRIBUTION IN A REFERENCE POPULATION, HAS BEEN CONFIRMED THE DECISION THRESHOLD FOR PA DIAGNOSIS. Performed By: #### C MP, LIPID, TSH #### [facility] [address] [place] [address] Dr. Bertram Paulino JEAN-PIERRE 28 ng/mL Normal 9-82 [facility] Comment on above: Performed By: #### C MP, LIPID, TSH #### [facility] [address] [place] [address] Dr. Bertram Paulino CBC AUTO DIFFon 05-14-2022 BASO # 0.0 103/ul Normal 0.0-0.1 [facility] Comment on above: Performed By: #### C MP, LIPID, TSH #### [facility] [address] [place] [address] Dr. Bertram Paulino Basophils/100 WBC (Bld) 0.5 % Normal 0.2-2.0 [facility] Comment on above: Performed By: #### C MP, LIPID, TSH #### [facility] [address] [place] [address] Dr. Bertram Paulino EO # 0.1 103/ul Normal 0.0-0.7 [facility] Comment on above: Performed By: #### C MP, LIPID, TSH #### [facility] [address] [place], [place] [id number] Dr. Bertram Paulino Eosinophils/100 WBC (Bld) 1.6 % Normal 0.9-7.0 [facility] Comment on above: Performed By: #### C MP, LIPID, TSH #### [facility] [address] [place] [address] Dr. Bertram Paulino Erythrocyte distribution width (RBC) [Ratio] 13.4 % Normal 11.0-15.0 [facility] Comment on above: Performed By: #### C MP, LIPID, TSH #### [facility] [address] [place] [address] Dr. Bertram Paulino Hematocrit (Bld) [Volume fraction] 37.4 % Normal 36.0-48.0 [facility] Comment on above: Performed By: #### C MP, LIPID, TSH #### [facility] [address] [place] [address] Dr. Bertram Paulino Hemoglobin (Bld) [Mass/Vol] 12.3 g/dL Normal 12.0-16.0 [facility] Comment on above: Performed By: #### C MP, LIPID, TSH #### [facility] [address] [place] [address] Dr. Bertram Paulino IG # 0.02 10e3/ul Normal 0.00-0.03 [facility] Comment on above: Performed By: #### C MP, LIPID, TSH #### [facility] [address] [place] [address] Dr. Bertram Paulino IG % 0.3 % Normal 0.0-0.5 [facility] Comment on above: Performed By: #### C MP, LIPID, TSH #### [facility] [address] [place] [address] Dr. Bertram Paulino LYMPH # 2.6 103/ul Normal 1.2-3.8 [facility] Comment on above: Performed By: #### C MP, LIPID, TSH #### [facility] [address] [place] [address] Dr. Bertram Paulino Lymphocytes/100 WBC (Bld) 34.5 % Normal 20.5-60.0 [facility] Comment on above: Performed By: #### C MP, LIPID, TSH #### [facility] [address] [place] [address] Dr. Bertram Paulino MANUAL DIFF REQ NO Normal [facility] Comment on above: Performed By: #### C MP, LIPID, TSH #### [facility] [address] [place] [address] Dr. Bertram Paulino MCH (RBC) [Entitic mass] 29.4 pg Normal 26.7-34.0 [facility] Comment on above: Performed By: #### C MP, LIPID, TSH #### [facility] [address] [place] [address] Dr. Bertram Paulino MCHC (RBC) [Mass/Vol] 32.9 g/dL Normal 29.9-35.2 [facility] Comment on above: Performed By: #### C MP, LIPID, TSH #### [facility] [address] [place] [address] Dr. Bertram Paulino MCV (RBC) [Entitic vol] 89.3 fL Normal 81.0-99.0 [facility] Comment on above: Performed By: #### C MP, LIPID, TSH #### [facility] [address] [place] [address] Dr. Bertram Paulino MONO # 0.5 103/ul Normal 0.3-0.8 [facility] Comment on above: Performed By: #### C MP, LIPID, TSH #### [facility] [address] [place] [address] Dr. Bertram Paulino Monocytes/100 WBC (Bld) 6.3 % Normal 1.7-12.0 [facility] Comment on above: Performed By: #### C MP, LIPID, TSH #### [facility] [address] [place] [address] Dr. Bertram Paulino NEUT # 4.3 103/ul Normal 1.4-6.5 [facility] Comment on above: Performed By: #### C MP, LIPID, TSH #### [facility] [address] [place] [address] Dr. Bertram Paulino Neutrophils/100 WBC (Bld) 56.8 % Normal 43.0-75.0 [facility] Comment on above: Performed By: #### C MP, LIPID, TSH #### [facility] [address] [place] [address] Dr. Bertram Paulino Platelet mean volume (Bld) [Entitic vol] 10.7 fL Normal 9.5-13.5 [facility] Comment on above: Performed By: #### C MP, LIPID, TSH #### [facility] [address] [place] [address] Dr. Bertram Paulino PLT 295 103/ul Normal 150-450 [facility] Comment on above: Performed By: #### C MP, LIPID, TSH #### [facility] [address] [place] [address] Dr. Bertram Paulino RBC 4.19 106/ul Critically low 4.20-5.40 [facility] Comment on above: Performed By: #### C MP, LIPID, TSH #### [facility] [address] [place] [address] Dr. Bertram Paulino WBC 7.6 103/ul Normal 4.0-11.0 [facility] Comment on above: Performed By: #### C MP, LIPID, TSH #### [facility] [address] [place] [address] Dr. Bertram Paulino D-DIMERon 05-14-2022 D-DIMER 0.65 mg/L FEU Critically high <=0.59 [facility] Comment on above: Performed By: #### D DIM #### [facility] [address] [place] [address] Dr. Bertram Paulino D-DIMER COMMENTS SEE BELOW Normal [facility] Comment on above: Result Comment: Incr [...] hospitalization. Performed By: #### D DIM #### [facility] [address] [place] [address] Dr. Bertram Paulino PROF CHEM 8 (BAS METB)on Anion gap [Moles/Vol] 10.7 mmol/L Normal [facility] Comment on above: Performed By: #### C MP, LIPID, TSH #### [facility] [address] [place] [address] Dr. Bertram Paulino Calcium [Mass/Vol] 9.6 mg/dL Normal 8.5-10.1 [facility] Comment on above: Performed By: #### C MP, LIPID, TSH #### [facility] [address] [place] [address] Dr. Bertram Paulino Chloride [Moles/Vol] 102 mmol/L Normal 98-107 [facility] Comment on above: Performed By: #### C MP, LIPID, TSH #### [facility] [address] [place] [address] Dr. Bertram Paulino CO2 [Moles/Vol] 28.8 mmol/L Normal 21.0-32.[address] [facility] Comment on above: Performed By: #### C MP, LIPID, TSH #### [facility] [address] [place] [address] Dr. Bertram Paulino Creatinine [Mass/Vol] 0.83 mg/dL Normal 0.55-1.02 [facility] Comment on above: Performed By: #### C MP, LIPID, TSH #### [facility] [address] [place] [address] Dr. Bertram Paulino EGFR-AF COSTA RICAN >60 Normal >=[address] [facility] Comment on above: Performed By: #### C MP, LIPID, TSH #### [facility] [address] [place] [address] Dr. Bertram Paulino EGFR-NON AF [place] >60 Normal >=60 [facility] Comment on above: Performed By: #### C MP, LIPID, TSH #### [facility] [address] [place] [address] Dr. Bertram Paulino Glucose [Mass/Vol] 128 mg/dL Critically high 74-106 [facility] Comment on above: Performed By: #### C MP, LIPID, TSH #### [facility] [address] [address] [address] Bertram Paulino Potassium [Moles/Vol] 3.5 mmol/L Normal 3.5-5.1 [facility] Comment on above: Performed By: #### C MP, LIPID, TSH #### [facility] [address] [address] [address] Bertram Paulino Sodium [Moles/Vol] 138 mmol/L Normal 136-145 [facility] Comment on above: Performed By: #### C MP, LIPID, TSH #### [facility] [address] [address] [address] Bertram Paulino Urea nitrogen [Mass/Vol] 8.0 mg/dL Normal 7.0-18.0 [facility] Comment on above: Performed By: #### C MP, LIPID, TSH #### [facility] [address] [address] [address] Bertram Paulino Urea nitrogen/Creatinine [Mass ratio] 9.6 mg/mg Normal [facility] Comment on above: Performed By: #### C MP, LIPID, TSH #### [facility] [address] [address] [address] Bertram Paulino XR CHEST 1 Von [...] VANESSA MARTINEZ Date: 2022-05-14 19:51 Normal [facility] CARDIAC ERASMO ADMITon 022 CK [Catalytic activity/Vol] 45 U/L Normal 26-192 [facility] Comment on above: Performed By: #### C MADM, TSH, CMP ####[facility] [id number] [address]Dr. Bertram Paulino CK.MB [Mass/Vol] ng/mL Normal <=3.[address] [facility] Comment on above: Performed By: #### C JASMYN TSH, CMP ####[facility] [address] [address]DrHazel Paulino HSTROP 5.1 pg/mL Normal 4.0-51.3 [facility] Comment on above: Result Comment: CUT- OFF POINTS HAVE BEEN ESTABLISHED BASED ON THE FOURTH UNIVERSAL DEFINITIONS OF MYOCARDIAL INFARCTION. THE UPPER REFERENCE LIMIT (URL) OF TROPONIN, DEFINED THE 99TH PERCENTILE OF cTnI DISTRIBUTION IN A REFERENCE POPULATION, HAS BEEN CONFIRMED THE DECISION THRESHOLD FOR PA DIAGNOSIS. Performed By: #### C JASMYN TSH, CMP ####[facility] [id number] [address]DrHazel Paulino JEAN-PIERRE 36 ng/mL Normal 9-82 [facility] Comment on above: Performed By: #### C JASMYN TSH, CMP ####[facility] [id number] [address]DrHazel Paulino CBC AUTO DIFFon 05-04-2022 BASO # 0.0 103/ul Normal 0.0-0.1 [facility] Comment on above: Performed By: #### C BC #### [facility] [address] [address] [address] Bertram Paulino Basophils/100 WBC (Bld) 0.6 % Normal 0.2-2.0 [facility] Comment on above: Performed By: #### C BC #### [facility] [address] [address] [address] Bertram Paulino EO # 0.1 103/ul Normal 0.0-0.7 [facility] Comment on above: Performed By: #### C BC #### [facility] [address] [address] [address] Bertram Paulino Eosinophils/100 WBC (Bld) 1.7 % Normal 0.9-7.0 [facility] Comment on above: Performed By: #### C BC #### [facility] [address] [place] [address] Dr. Bertram Paulino Erythrocyte distribution width (RBC) [Ratio] 13.2 % Normal 11.0-15.0 [facility] Comment on above: Performed By: #### C BC #### [facility] [address] [place] [address] Dr. Bertram Paulino Hematocrit (Bld) [Volume fraction] 40.9 % Normal 36.0-48.0 [facility] Comment on above: Performed By: #### C BC #### [facility] [address] [place] [address] Dr. Bertram Paulino Hemoglobin (Bld) [Mass/Vol] 13.6 g/dL Normal 12.0-16.0 [facility] Comment on above: Performed By: #### C BC #### [facility] [address] [place] [address] Dr. Bertram Paulino IG # 0.02 10e3/ul Normal 0.00-0.03 [facility] Comment on above: Performed By: #### C BC #### [facility] [address] [place] [address] Dr. Bertram Paulino IG % 0.3 % Normal 0.0-0.5 [facility] Comment on above: Performed By: #### C BC #### [facility] [address] [place] [address] Dr. Bertram Paulino LYMPH # 2.5 103/ul Normal 1.2-3.8 [facility] Comment on above: Performed By: #### C BC #### [facility] [address] [place] [address] Dr. Bertram Paulino Lymphocytes/100 WBC (Bld) 36.0 % Normal 20.5-60.0 [facility] Comment on above: Performed By: #### C BC #### [facility] [address] [place] [address] Dr. Bertram Paulino MANUAL DIFF REQ NO Normal [facility] Comment on above: Performed By: #### C BC #### [facility] [address] [place] [address] Dr. Bertram Paulino MCH (RBC) [Entitic mass] 29.0 pg Normal 26.7-34.0 [facility] Comment on above: Performed By: #### C BC #### [facility] [address] [place] [address] Dr. Bertram Paulino MCHC (RBC) [Mass/Vol] 33.3 g/dL Normal 29.9-35.2 [facility] Comment on above: Performed By: #### C BC #### [facility] [address] [place] [address] Dr. Bertram Paulino MCV (RBC) [Entitic vol] 87.2 fL Normal 81.0-99.0 [facility] Comment on above: Performed By: #### C BC #### [facility] [address] [place] [address] Dr. Bertram Paulino MONO # 0.5 103/ul Normal 0.3-0.8 [facility] Comment on above: Performed By: #### C BC #### [facility] [address] [place] [address] Dr. Bertram Paulino Monocytes/100 WBC (Bld) 6.9 % Normal 1.7-12.0 [facility] Comment on above: Performed By: #### C BC #### [facility] [address] [place] [address] Dr. Bertram Paulino NEUT # 3.8 103/ul Normal 1.4-6.5 [facility] Comment on above: Performed By: #### C BC #### [facility] [address] [place] [address] Dr. Bertram Paulino Neutrophils/100 WBC (Bld) 54.5 % Normal 43.0-75.0 [facility] Comment on above: Performed By: #### C BC #### [facility] [address] [place] [address] Dr. Bertram Paulino Platelet mean volume (Bld) [Entitic vol] 10.3 fL Normal 9.5-13.5 [facility] Comment on above: Performed By: #### C BC #### [facility] [address] [place] [address] Dr. Bertram Paulino PLT 316 103/ul Normal 150-450 [facility] Comment on above: Performed By: #### C BC #### [facility] [address] [place] [address] Dr. Bertram Paulino RBC 4.69 106/ul Normal 4.20-5.40 [facility] Comment on above: Performed By: #### C BC #### [facility] [address] [place], [place] [id number] Dr. Bertram Paulino WBC 6.9 103/ul Normal 4.0-11.0 [facility] Comment on above: Performed By: #### C BC #### [facility] [address] [place] [address] Dr. Bertram Paulino Covid-19 PCR ([facility])on 04-14 SARS-CoV-2 (COVID-19) RNA KIRT+probe Ql (Unsp spec) Not detected Normal NOT DETECTED [facility] Comment on above: Result Comment: When diagnostic [...] for this test is supported by the Table Keeper of Health and Human Service's declaration that [...] By: #### C MP, LIPID, TSH #### [facility] [address] [place], [place] [id number] Dr. Bertram Paulino ER URINE PROFILEon 2 Bilirubin Ql (U) Negative Normal NEGATIVE [facility] Comment on above: Performed By: #### C MP, LIPID, TSH #### [facility] [address] [address] [address] Bertram Paulino Clarity (U) CLEAR Normal CLEAR [facility] Comment on above: Performed By: #### C MP, LIPID, TSH #### [facility] [address] [address] [address] Bertram Paulino Color (U) YELLOW Normal YELLOW [facility] Comment on above: Performed By: #### C MP, LIPID, TSH #### [facility] [address] [address] [address] Bertram ETIENNE A micrscopic examination will be performed if indicated. Normal [facility] Comment on above: Performed By: #### C MP, LIPID, TSH #### [facility] [address] [place] [address] Dr. Bertram Paulino Glucose Ql (U) Negative Normal NEGATIVE [facility] Comment on above: Performed By: #### C MP, LIPID, TSH #### [facility] [address] [place] [address] Dr. Bertram Paulino Hemoglobin Ql (U) Negative Normal NEGATIVE [facility] Comment on above: Performed By: #### C MP, LIPID, TSH #### [facility] [address] [place] [address] Dr. Bertram Paulino Ketones Ql (U) TRACE Abnormal NEGATIVE [facility] Comment on above: Performed By: #### C MP, LIPID, TSH #### [facility] [address] [place] [address] Dr. Bertram Paulino LEUKOCYTES Negative Normal NEGATIVE [facility] Comment on above: Performed By: #### C MP, LIPID, TSH #### [facility] [address] [place] [address] Dr. Bertram Paulino Nitrite Ql (U) Negative Normal NEGATIVE [facility] Comment on above: Performed By: #### C MP, LIPID, TSH #### [facility] [address] [place] [address] Dr. Bertram Paulino pH (U) 7.5 [pH] Normal 5-9 [facility] Comment on above: Performed By: #### C MP, LIPID, TSH #### [facility] [address] [address] [address] Bertram Paulino SPEC GRAVITY 1.015 Normal 1.005-<=1.025 [facility] Comment on above: Performed By: #### C MP, LIPID, TSH #### [facility] [address] [address] [address] Bertram Paulino UA PROTEIN TRACE Normal NEGATIVE/ TRACE [facility] Comment on above: Performed By: #### C MP, LIPID, TSH #### [facility] [address] [address] [address] Bertram Paulino UR MICRO IND NOT INDICATED Normal [facility] Comment on above: Performed By: #### C MP, LIPID, TSH #### [facility] [address] [address] [address] Bertram Paulino Urobilinogen Qn (U) 0.2 {Yazmin'U}/dL Normal 0.2 - 1. 0 [facility] Comment on above: Performed By: #### C MP, LIPID, TSH #### [facility] [address] [address] [address] Bertram Paulino PROF 14(COMP METB)on 022 Albumin [Mass/Vol] 3.7 g/dL Normal 3.4-5.0 [facility] Comment on above: Performed By: #### C MADM, TSH, CMP ####[facility] [address] [address]DrHazel Paulino Albumin/Globulin [Mass ratio] 1.0 {ratio} Normal [facility] Comment on above: Performed By: #### C MADM, TSH, CMP ####[facility] [id number] [id number] Paulino ALP [Catalytic activity/Vol] 59 U/L Normal 46-116 [facility] Comment on above: Performed By: #### C MADM, TSH, CMP ####[facility] [address] [address]Dr. Bertram Paulino ALT [Catalytic activity/Vol] 55 U/L Normal 14-59 [facility] Comment on above: Performed By: #### C MADM, TSH, CMP ####[facility] [address] [address]Dr. Bertram Paulino Anion gap [Moles/Vol] 13.6 mmol/L Normal [facility] Comment on above: Performed By: #### C MADM, TSH, CMP ####[facility] [id number] [address]Dr. Bertram Paulino AST [Catalytic activity/Vol] 33 U/L Normal 15-37 [facility] Comment on above: Performed By: #### C MADM, TSH, CMP ####[facility] [address] [address]Dr. Bertram Paulino Bilirubin [Mass/Vol] 0.7 mg/dL Normal 0.2-1.0 [facility] Comment on above: Performed By: #### C MADM, TSH, CMP ####[facility] [address] [place], [place] [address]Dr. Bertram Paulino Calcium [Mass/Vol] 9.3 mg/dL Normal 8.5-10.1 [facility] Comment on above: Performed By: #### C MADM, TSH, CMP ####[facility] [address] [place], [place] [address]Dr. Bertram Paulino Chloride [Moles/Vol] 102 mmol/L Normal 98-107 [facility] Comment on above: Performed By: #### C MADM, TSH, CMP ####[facility] [address] [place], [place] [address]Dr. Bertram Paulino CO2 [Moles/Vol] 28.1 mmol/L Normal 21.0-32.[address] [facility] Comment on above: Performed By: #### C MADM, TSH, CMP ####[facility] [address] [address]Dr. Bertram Paulino Creatinine [Mass/Vol] 0.80 mg/dL Normal 0.55-1.02 [facility] Comment on above: Performed By: #### C MADM, TSH, CMP ####[facility] [address] [address]Dr. Bertram Paulino EGFR-AF CO[place] >60 Normal >=[address] [facility] Comment on above: Performed By: #### C MADM TSH, CMP ####[facility] [address] [address]Dr. Bertram Paulino EGFR-NON AF [place] >60 Normal >=60 [facility] Comment on above: Performed By: #### C MADKim TSH, CMP ####[facility] [address] [address]Dr. Bertram Paulino Globulin (S) [Mass/Vol] 3.7 g/dL Normal [facility] Comment on above: Performed By: #### C JASMYN TSH, CMP ####[facility] [address] [address]Dr. Bertram Paulino Glucose [Mass/Vol] 104 mg/dL Normal 74-106 [facility] Comment on above: Performed By: #### C JASMYN TSH, CMP ####[facility] [address] [place], [place] [address]Dr. Bertram Paulino Potassium [Moles/Vol] 3.7 mmol/L Normal 3.5-5.1 [facility] Comment on above: Performed By: #### C JASMYN TSH, CMP ####[facility] [address] [address]Dr. Vivianalan Paulino Protein [Mass/Vol] 7.4 g/dL Normal 6.4-8.2 [facility] Comment on above: Performed By: #### C MADM, TSH, CMP ####[facility] [address] [address]Dr. Vivianalan Paulino Sodium [Moles/Vol] 140 mmol/L Normal 136-145 [facility] Comment on above: Performed By: #### C MADM TSH, CMP ####[facility] [address] [address]Dr. Bertram Paulino Urea nitrogen [Mass/Vol] 19.0 mg/dL Critically high 7.0-18.0 [facility] Comment on above: Performed By: #### C MADM, TSH, CMP ####[facility] [address] [place], [place] [address]Ru. Bertram Paulino Urea nitrogen/Creatinine [Mass ratio] 23.8 mg/mg Normal [facility] Comment on above: Performed By: #### C MADM, TSH, CMP ####[facility] [address] [place], [place] [address]Ix. Bertram Paulino TSHon 05-04-2022 TSH 1.746 uIU/mL Normal 0.358-3.740 [facility] Comment on above: Performed By: #### C MADM, TSH, CMP ####[facility] [address] [id number]. Bertram Paulino B-Type Natriuretic Peptideon 12-28-2021 Natriuretic peptide B (Bld) [Mass/Vol] 15.0 pg/mL Normal 5-100 [facility] Comment on above: Result Comment: PERF ORMED BY: [place] [address] PATHOLOGIST MANAGER STORMY MTZ M.D. Performed By: #### B STRATEGIC ACCOUNT DIRECTOR #### [address] Basic Metabolic Panelon 12-14 Calcium [Mass/Vol] 9.4 mg/dL Normal 8.2-10.2 [facility] Comment on above: Performed By: #### C BC, PT, PTT, HEPATIC, BMP, LIPASE #### [facility] [address] [place] [address] [place] Chloride [Moles/Vol] 101 mmol/L Normal 95-114 [facility] Comment on above: Performed By: #### C BC, PT, PTT, HEPATIC, BMP, LIPASE #### [place] [address] [place] CO2 [Moles/Vol] 21.0 mmol/L Low 22.0-30.0 [facility] Comment on above: Performed By: #### C BC, PT, PTT, HEPATIC, BMP, LIPASE #### [address] [place] [address] [place] Creatinine [Mass/Vol] 0.54 mg/dL Normal 0.44-1.03 [facility] Comment on above: Performed By: #### C BC, PT, PTT, HEPATIC, BMP, LIPASE #### [address] Creatinine Clr Calc Pharmacy 153.81 [facility] Comment on above: Performed By: #### C BC, PT, PTT, HEPATIC, BMP, LIPASE #### [address] Estimated GFR ( Kristen > 60 [facility] Comment on above: Result Comment: GFR estimated reference range: According to KDOQI guidelines, <60 ml/min/1.73m2 is sufficient to diagnose a patient with chronic kidney disease. Performed By: #### C BC, PT, PTT, HEPATIC, BMP, LIPASE #### [address] Estimated GFR (Non- Am > 60 [facility] Comment on above: Performed By: #### C BC, PT, PTT, HEPATIC, BMP, LIPASE #### [address] Glucose [Mass/Vol] 98 mg/dL Normal 70-100 [facility] Comment on above: Result Comment: Zanoni om Glucose Reference Range is dependent on time and content of last meal. Glucose of more than 200 mg/dL in a nonstressed, ambulatory subject supports the diagnosis of Diabetes Mellitus. ADA recommended reference range Performed By: #### C BC, PT, PTT, HEPATIC, BMP, LIPASE #### [address] Potassium [Moles/Vol] 3.7 mmol/L Normal 3.5-5.1 [facility] Comment on above: Performed By: #### C BC, PT, PTT, HEPATIC, BMP, LIPASE #### [address] Sodium [Moles/Vol] 134 mmol/L Low 136-146 [facility] Comment on above: Performed By: #### C BC, PT, PTT, HEPATIC, BMP, LIPASE #### [facility] [address] Urea nitrogen [Mass/Vol] 4 mg/dL Low 9-23 [facility] Comment on above: Performed By: #### C BC, PT, PTT, HEPATIC, BMP, LIPASE #### [facility] [address] abdomen pelvis w conon CT abdomen pelvis w con [facility] [address] [place] [address] CT Scan Report Signed Patient: Lu Cancino MR#: [id number] : 1970 Acct:[id number] Age/Sex: 50 / F ADM Date: 12/28/21 Loc: ER Room: Type: [facility] ER Attending Dr: Ordering Provider: Ricardo [...] Erasmo Brooks M.D.12/28/2021 8:14 PM Dictation Location: [place] [address] Transcribed By: [facility] 12/28/212013 Dictated By: Erasmo Brooks II, MD 12/28/212006 Signed By: 12/28/212013 Normal [facility] Complete Blood Count Auto Di ffon 12-28-2021 Basophils (Bld) [#/Vol] 0.0 10*3/uL Normal 0.0-0.2 [facility] Comment on above: Result Comment: PERF ORMED BY: [place] [address] PATHOLOGIST MANAGER STORMY MTZ M.D. Performed By: #### C BC, PT, PTT, HEPATIC, BMP, LIPASE #### [facility] [address] [place] [address] Basophils/100 WBC (Bld) 0.9 % Normal . [facility] Comment on above: Performed By: #### C BC, PT, PTT, HEPATIC, BMP, LIPASE #### [facility] [address] [place] [address] Eosinophils (Bld) [#/Vol] 0.0 10*3/uL Normal 0.0-0.45 [facility] Comment on above: Performed By: #### C BC, PT, PTT, HEPATIC, BMP, LIPASE #### [address] Eosinophils/100 WBC (Bld) 0.7 % Normal . [facility] Comment on above: Performed By: #### C BC, PT, PTT, HEPATIC, BMP, LIPASE #### [address] Erythrocyte distribution width (RBC) [Ratio] 14.9 % Normal 11.9-15.3 [facility] Comment on above: Performed By: #### C BC, PT, PTT, HEPATIC, BMP, LIPASE #### [address] Hematocrit (Bld) [Volume fraction] 37.6 % Normal 34.0-46.4 [facility] Comment on above: Performed By: #### C BC, PT, PTT, HEPATIC, BMP, LIPASE #### [address] Hemoglobin (Bld) [Mass/Vol] 12.8 g/dL Normal 11.8-15.4 [facility] Comment on above: Performed By: #### C BC, PT, PTT, HEPATIC, BMP, LIPASE #### [address] Lymphocytes (Bld) [#/Vol] 1.7 10*3/uL Normal 1.00-4.8 [facility] Comment on above: Performed By: #### C BC, PT, PTT, HEPATIC, BMP, LIPASE #### [address] Lymphocytes/100 WBC (Bld) 34.3 % Normal . [facility] Comment on above: Performed By: #### C BC, PT, PTT, HEPATIC, BMP, LIPASE #### [address] MCH (RBC) [Entitic mass] 30.2 pg Normal 24.7-34.3 [facility] Comment on above: Performed By: #### C BC, PT, PTT, HEPATIC, BMP, LIPASE #### [address] MCV (RBC) [Entitic vol] 88.6 fL Normal 80-100 [facility] Comment on above: Performed By: #### C BC, PT, PTT, HEPATIC, BMP, LIPASE #### [address] Mean Corpuscular HGB Conc 34.1 g/dL Normal 32.0-35.0 [facility] Comment on above: Performed By: #### C BC, PT, PTT, HEPATIC, BMP, LIPASE #### [address] Monocytes (Bld) [#/Vol] 0.6 10*3/uL Normal 0.0-0.8 [facility] Comment on above: Performed By: #### C BC, PT, PTT, HEPATIC, BMP, LIPASE #### [address] Monocytes/100 WBC (Bld) 12.1 % Normal . [facility] Comment on above: Performed By: #### C BC, PT, PTT, HEPATIC, BMP, LIPASE #### [address] Neutrophils (Bld) [#/Vol] 2.5 10*3/uL Normal 1.8-7.7 [facility] Comment on above: Performed By: #### C BC, PT, PTT, HEPATIC, BMP, LIPASE #### [address] Neutrophils/100 WBC (Bld) 52.0 % Normal . [facility] Comment on above: Performed By: #### C BC, PT, PTT, HEPATIC, BMP, LIPASE #### [address] Nucleated RBC/100 WBC (Bld) [Ratio] 0.0 % Normal 0-0.5 [facility] Comment on above: Performed By: #### C BC, PT, PTT, HEPATIC, BMP, LIPASE #### [address] Platelet mean volume (Bld) [Entitic vol] 7.8 fL Normal 6.3-10.7 [facility] Comment on above: Performed By: #### C BC, PT, PTT, HEPATIC, BMP, LIPASE #### [facility] [address] Platelets (Bld) [#/Vol] 458 10*3/uL High 150-450 [facility] Comment on above: Performed By: #### C BC, PT, PTT, HEPATIC, BMP, LIPASE #### [address] RBC (Bld) [#/Vol] 4.25 10*6/uL Normal 3.60-5.00 [facility] Comment on above: Performed By: #### C BC, PT, PTT, HEPATIC, BMP, LIPASE #### [facility] [address] WBC (Bld) [#/Vol] 4.9 10*3/uL Normal 4.5-11.0 [facility] Comment on above: Performed By: #### C BC, PT, PTT, HEPATIC, BMP, LIPASE #### [address] ECG 12 lead ECGon 12-28-2021 ECG 12 lead ECG [facility] [place] [address] [place] [address] Electrocardiograph Report Signed Patient: Lu Cancino MR#: [id number] : 1970 Acct:[id number] Age/Sex: 50 / F ADM Date: 12/28/21 Loc: ER Room: Type: [facility] ER Attending Dr: Ordering Provider: Ricardo Ricardo [...] sinus rhythm Confirmed by Ricardo RICARDO DO ([id number]) on 12/28/2021 9:15:05 PM Referred By: Electronically Signed By:Ricardo RICARDO DO Transcribed By: MUS Signed By Ricardo Ricardo, 0 12/28/212114 Normal [facility] HCG,Urineon 12-28-2021 Beta HCG ( test) Ql (U) Negative [facility] Comment on above: Order Comment: Name Collection Type:: Clean-Voided Midstream Result Comment: PERF ORMED BY: [place] [address] PATHOLOGIST MANAGER STORMY MTZ M.D. Performed By: #### C BC, PT, PTT, HEPATIC, BMP, LIPASE #### [address] Hepatic Panelon 12-28-2021 Albumin [Mass/Vol] 4.0 g/dL Normal 3.2-5.5 [facility] Comment on above: Performed By: #### C BC, PT, PTT, HEPATIC, BMP, LIPASE #### [address] Albumin/Globulin [Mass ratio] 1.6 {ratio} [facility] Comment on above: Performed By: #### C BC, PT, PTT, HEPATIC, BMP, LIPASE #### [address] ALP [Catalytic activity/Vol] 38 U/L Normal 32-92 [facility] Comment on above: Performed By: #### C BC, PT, PTT, HEPATIC, BMP, LIPASE #### [address] ALT [Catalytic activity/Vol] 44 U/L Normal 10-60 [facility] Comment on above: Performed By: #### C BC, PT, PTT, HEPATIC, BMP, LIPASE #### [address] AST [Catalytic activity/Vol] 38 U/L Normal 10-42 [facility] Comment on above: Performed By: #### C BC, PT, PTT, HEPATIC, BMP, LIPASE #### [address] Bilirubin [Mass/Vol] 0.8 mg/dL Normal 0.3-1.2 [facility] Comment on above: Performed By: #### C BC, PT, PTT, HEPATIC, BMP, LIPASE #### [address] Bilirubin,Indirect 0.7 mg/dL Normal [facility] Comment on above: Performed By: #### C BC, PT, PTT, HEPATIC, BMP, LIPASE #### [address] Bilirubin.indirect [Mass/Vol] 0.1 mg/dL Normal 0.0-0.4 [facility] Comment on above: Performed By: #### C BC, PT, PTT, HEPATIC, BMP, LIPASE #### [address] Globulin (S) [Mass/Vol] 2.5 g/dL Normal [facility] Comment on above: Performed By: #### C BC, PT, PTT, HEPATIC, BMP, LIPASE #### [address] Protein [Mass/Vol] 6.5 g/dL Normal 6.1-7.9 [facility] Comment on above: Performed By: #### C BC, PT, PTT, HEPATIC, BMP, LIPASE #### [address] Lipaseon 12-28-2021 Lipase [Catalytic activity/Vol] 29.0 U/L Normal 22-51 [facility] Comment on above: Result Comment: PERF ORMED BY: [place] [address] PATHOLOGIST MANAGER STORMY MTZ M.D. Performed By: #### C BC, PT, PTT, HEPATIC, BMP, LIPASE #### [address] Partial Thromboplastin Timeo n 12-28-2021 aPTT Coag (Bld) [Time] 30.4 s Normal 25.1-36.5 [facility] Comment on above: Result Comment: PERF ORMED BY: [place] [address] PATHOLOGIST MANAGER STORMY MTZ M.D. Performed By: #### C BC, PT, PTT, HEPATIC, BMP, LIPASE #### [facility] [address] [place] [address] Prothrombin Time INRon 12-28 INR Coag (PPP) [Relative time] 1.0 {INR} Normal [facility] Comment on above: Result Comment: INR [...] BC, PT, PTT, HEPATIC, BMP, LIPASE #### [address] PT Coag (PPP) [Time] 11.8 s Normal 9.0-12.9 [facility] Comment on above: Performed By: #### C BC, PT, PTT, HEPATIC, BMP, LIPASE #### [facility] [address] [place] [address] Urinalysison 12-28-2021 Appearance (U) Clear Normal Clear [facility] Comment on above: Order Comment: Name Collection Type:: Clean-Voided Midstream Performed By: #### C BC, PT, PTT, HEPATIC, BMP, LIPASE #### [facility] [address] [place] [address] Bilirubin,Urine Negative Normal Negative [facility] Comment on above: Order Comment: Name Collection Type:: Clean-Voided Midstream Performed By: #### C BC, PT, PTT, HEPATIC, BMP, LIPASE #### [facility] [address] [place] [address] Color (U) Yellow Normal Yellow [facility] Comment on above: Order Comment: Name Collection Type:: Clean-Voided Midstream Performed By: #### C BC, PT, PTT, HEPATIC, BMP, LIPASE #### [facility] [address] [place] [address] Glucose Ql (U) Normal Normal Normal [facility] Comment on above: Order Comment: Name Collection Type:: Clean-Voided Midstream Performed By: #### C BC, PT, PTT, HEPATIC, BMP, LIPASE #### [address] Ketones Ql (U) Negative Normal Negative [facility] Comment on above: Order Comment: Name Collection Type:: Clean-Voided Midstream Performed By: #### C BC, PT, PTT, HEPATIC, BMP, LIPASE #### [address] Leukocyte esterase Test strip Ql (U) Negative Normal Negative [facility] Comment on above: Order Comment: Name Collection Type:: Clean-Voided Midstream Performed By: #### C BC, PT, PTT, HEPATIC, BMP, LIPASE #### [address] Nitrite,Urine Negative Normal Negative [facility] Comment on above: Order Comment: Name Collection Type:: Clean-Voided Midstream Performed By: #### C BC, PT, PTT, HEPATIC, BMP, LIPASE #### [address] Occult Blood,Urine Negative Normal Negative [facility] Comment on above: Order Comment: Name Collection Type:: Clean-Voided Midstream Performed By: #### C BC, PT, PTT, HEPATIC, BMP, LIPASE #### [place] [address] [place] pH (U) 7.5 [pH] Normal 5.0-9.0 [facility] Comment on above: Order Comment: Name Collection Type:: Clean-Voided Midstream Performed By: #### C BC, PT, PTT, HEPATIC, BMP, LIPASE #### [address] Protein,Urine Negative Normal Negative [facility] Comment on above: Order Comment: Name Collection Type:: Clean-Voided Midstream Performed By: #### C BC, PT, PTT, HEPATIC, BMP, LIPASE #### [address] Specificy [place],Urine 1.004 Normal 1.001-1.030 [facility] Comment on above: Order Comment: Name Collection Type:: Clean-Voided Midstream Performed By: #### C BC, PT, PTT, HEPATIC, BMP, LIPASE #### [address] Urobilinogen,Urine Normal Normal Normal [facility] Comment on above: Order Comment: Name Collection Type:: Clean-Voided Midstream Performed By: #### C BC, PT, PTT, HEPATIC, BMP, LIPASE #### [address] XR chest 1V portableon 12-28 XR chest 1V portable [facility] [address] XRay Report Signed Patient: Lu Cancino MR#: [id number] : 1970 Acct:[id number] Age/Sex: 50 / F ADM Date: 12/28/21 [...] Erasmo Brooks M.D.12/28/2021 6:18 PM Dictation Location: [place] [address] Transcribed By: [facility] 12/28/211817 Dictated By: Erasmo Brooks II, MD 12/28/211816 Signed By: 12/28/211817 Normal [facility] ANTI DNAon 04-09-2019 ANTI DNA <1:10 Normal <1:10 [facility] Comment on above: Performed By: #### 1 0097, 70587, 23669 #### [facility] [address] [place] [address], [facility] ANTI-ENAon 04-09-2019 ANTI SM Negative Normal NEG,NEGATIVE, Neg [facility] Comment on above: Performed By: #### 1 0097, 92301, 21804 #### [facility] [address] [place] [address], [facility] ANTI SM/ANTIRNP Negative Normal NEG,NEGATIVE , Neg [facility] Comment on above: Performed By: #### 1 0097, 23100, 18350 #### [facility] [address] [place] [address], [facility] C REACTIVE PROTEINon 019 CRP mass conc 8.0 mg/L High 0.0-7.0 [facility] Comment on above: Performed By: #### 6 1405 #### [facility] [address] [place] [address], [facility] CHROMATIN ANTIBODY, IGG 2004 287on 04-09-2019 CHROMATIN ANTIBODY, IGG 4 Units Normal 0-19 [facility] Comment on above: Result Comment: INTE RPRETIVE [...] when antibody levels are high. Performed by [facility], [address] [place] [address] [email or web address], Sam Brito MD - Lab. Director CYCLIC CITRULLINATED PEPTIDE [place] [id number] 04-09-2019 CYCLIC CIT PEP 5 Units Normal 0-19 [facility] Comment on above: Result Comment: INTE RPRETIVE [...] be monitored and testing repeated. Performed by [facility], [address] [place] [address] [email or web address], Sam Brito MD - Lab. Director SEDIMENTATION RATEon 019 SED RATE 34 mm/hr High 0-20 [facility] Comment on above: Performed By: #### 5 6506 #### [facility] [address] [facility] [address], [facility] SJOGRENS ANTIBODIESon 2018 SS-A Negative Normal NEG,NEGATIVE, Neg [facility] Comment on above: Performed By: #### 1 0097, 21922, 36661 #### [facility] [address] [place] [address], [facility] SS-B Negative Normal NEG,NEGATIVE, Neg [facility] Comment on above: Performed By: #### 1 0097, 42900, 84582 #### [facility] [place] [address], [facility] Vital Signs Date Time Vital Sign Value Performing Clinician Facility 09-20-2024 18:52-0500 Body height 157.48 cm [facility] 09-20-2024 18:52-0500 Body mass index (BMI) [Ratio] 49.9 kg/m2 [facility] 09-20-2024 18:52-0500 Body temperature 98.3 [degF] [facility] 09-20-2024 18:52-0500 Body weight 123.83 kg [facility] 09-20-2024 18:52-0500 Diastolic blood pressure 72 mm[Hg] [facility] 09-20-2024 18:52-0500 Heart rate 83 /min [facility] 09-20-2024 18:52-0500 Respiratory rate 16 /min [facility] 09-20-2024 18:52-0500 SaO2% (BldA) [Mass fraction] 97 % [facility] 09-20-2024 18:52-0500 Systolic blood pressure 110 mm[Hg] [facility] 08-26-2023 13:10-0400 Body height 157.48 cm Selene Martinez Other [facility] [employer] Other 08-26-2023 13:10-0400 Body mass index (BMI) [Ratio] 49.01 kg/m2 Selene Martinez Other [facility] [employer] Other 08-26-2023 13:10-0400 Body temperature 97.9 [degF] Selene Michelle Other [facility] Other 08-26-2023 13:10-0400 Body weight 121.56 kg Selene Martinez Other [facility] [employer] Other 08-26-2023 13:10-0400 Diastolic blood pressure 71 mm[Hg] Selene Martinez Other [employer] Other 08-26-2023 13:10-0400 Respiratory rate 18 /min Selene Changmond Other [facility] Other 08-26-2023 13:10-0400 SaO2% (BldA) [Mass fraction] 99 % Selene Changmond Other [employer] Other 08-26-2023 13:10-0400 Systolic blood pressure 142 mm[Hg] Selene Changmond Other [employer] Other 05-31-2022 18:00-0400 Body height 157.48 cm Rose De Other [employer] Other 05-31-2022 18:00-0400 Body mass index (BMI) [Ratio] 45.72 kg/m2 Rose De Other [employer] Other 05-31-2022 18:00-0400 Body temperature 98.3 [degF] Rose De Other [employer] Other 05-31-2022 18:00-0400 Body weight 113.4 kg Rose De Other [employer] Other 05-31-2022 18:00-0400 Respiratory rate 18 /min Rose De Other [employer] Other 05-31-2022 18:00-0400 SaO2% (BldA) [Mass fraction] 95 % Rose De Other [employer] Other 09-10-2021 13:45-0400 Body height 157.48 cm Selene Martinez Other [employer] Other 09-10-2021 13:45-0400 Body mass index (BMI) [Ratio] 45.72 kg/m2 Selene Martinez Other [employer] Other 09-10-2021 13:45-0400 Body temperature 96.8 [degF] Selene Martinez Other [facility] Other 09-10-2021 13:45-0400 Body weight 113.4 kg Selene Martinez Other [facility] Other 09-10-2021 13:45-0400 Respiratory rate 18 /min Selene Martinez Other [facility] Other 09-10-2021 13:45-0400 SaO2% (BldA) [Mass fraction] 97 % Selene Martinez Other [employer] Other Encounters Encounter Date Encounter Type Care Provider Facility Start: 09-20-2024 End: 09-20-2024 ambulatory [facility] Work Phone: Start: 09-20-2024 End: 09-20-2024 Patient encounter procedure [facility] [place] Work Phone: Start: 09-08-2024 End: 09-10-2024 Refill Melani Augusta STRATEGIC ACCOUNT DIRECTOR Work Phone: [facility] Comment on above: Fibromyalgia (Primar y Dx); Gastroesophageal reflux disease, unspecified whether esophagitis present; Edema of lower extremity Start: 09-07-2024 End: 09-09-2024 Refill Melani Augusta STRATEGIC ACCOUNT DIRECTOR Work Phone: [facility] Comment on above: Gastroesophageal ref lux disease, unspecified whether esophagitis present Start: 09-06-2024 End: 09-06-2024 ambulatory EDDY LORENZANA Not Available Start: 09-02-2024 End: 09-02-2024 Telephone encounter Eddy Lorenzana MD Work Phone: [facility] Start: 08-24-2024 End: 08-25-2024 Refill Mahesh Rocha MD Work Phone: [facility] Comment on above: Vitamin deficiency ( Primary Dx) Start: 08-07-2024 End: 08-07-2024 ambulatory MELANI AICHHOLZ Not Available Start: 07-10-2024 End: 07-10-2024 ambulatory TIMMY NOVOAEY Not Available Start: 06-30-2024 End: 06-30-2024 Letter encounter [facility] Start: 06-13-2024 End: 06-13-2024 ambulatory EDDY LORENZANA Not Available Start: 05-28-2024 End: 05-28-2024 ambulatory JEREMIAH HANSEN Not Available Start: 05-28-2024 End: 05-28-2024 ambulatory MELANI AICHHOLZ Not Available Start: 05-22-2024 End: 05-22-2024 ambulatory MELANI AICHHOLZ Not Available Start: 05-09-2024 End: 05-09-2024 ambulatory MELANI AICHHOLZ Not Available Start: 04-01-2024 End: 04-01-2024 ambulatory EDDY LORENZANA Not Available Start: 03-07-2024 End: 03-07-2024 ambulatory JOSH PARKINSON Not Available Start: 02-01-2024 End: 02-01-2024 ambulatory MELANI AICHHOLZ Not Available Start: 01-08-2024 End: 01-08-2024 ambulatory ELVIS BRONSON Not Available Start: 12-21-2023 End: 12-21-2023 ambulatory EDDY LORENZANA Not Available Start: 12-20-2023 Refill Eddy valentino MD Work Phone: [facility] Comment on above: Myalgia; Numbness and tingling; Weakness Start: 12-19-2023 End: 12-19-2023 ambulatory EBEN ZHANGNOSSEK Not Available Start: 12-15-2023 End: 12-15-2023 Chart abstracting Elvis Bronson [facility] Work Phone: [facility] Comment on above: Bipolar II disorder, most recent episode major depressive ([facility]) Start: 12-15-2023 End: 12-15-2023 ambulatory ELVISAnne BRONSON Not Available Start: 11-23-2023 End: 11-23-2023 ambulatory EDDY LORENZANA Not Available Start: 11-02-2023 End: 11-02-2023 ambulatory EDDY W LORENZANA Not Available Start: 09-28-2023 End: 09-28-2023 ambulatory EDDY W LORENZANA Not Available Start: 08-26-2023 End: 08-26-2023 ambulatory Selene Martinez Other [facility] Other Start: 08-26-2023 Office outpatient vi sit 15 minutes Selene Martinez [facility] [place] Start: 05-23-2023 End: 05-23-2023 ambulatory FRACISCO Alvarez [facility] Start: 04-11-2023 Letter encounter Lili lback Start: 03-21-2023 End: 03-22-2023 ambulatory MILITARY EDUCATION COORDINATOR MELANI AICHHOLZ Facility:H1 Start: 01-23-2023 End: 01-23-2023 ambulatory MILITARY EDUCATION COORDINATOR MELANI AICHHOLZ Facility:[facility]1 Start: 01-12-2023 End: 01-13-2023 ambulatory MILITARY EDUCATION COORDINATOR MELANI AICHHOLZ Facility:[facility]1 Start: 01-12-2023 Letter encounter Lili black Start: 08-09-2022 End: 08-10-2022 ambulatory SLAED HETAL . Facility:[facility] Start: 07-19-2022 End: 07-20-2022 ambulatory MILITARY EDUCATION COORDINATOR MELANI AICHHOLZ Facility:[facility]1 Start: 07-15-2022 End: 07-16-2022 ambulatory MILITARY EDUCATION COORDINATOR MELANI AICHHOLZ Facility:[facility]1 Start: 07-10-2022 End: 07-11-2022 ambulatory MILITARY EDUCATION COORDINATOR MELANI AICHHOLZ Facility:[facility]1 Start: 07-05-2022 End: 07-05-2022 Phys/qhp telephone evaluation 21-30 min Lucía Calderon APRN-MILITARY EDUCATION COORDINATOR Work Phone: [facility] Comment on above: Chest pain, unspecif ied type (Primary Dx); [id number] condition Start: 07-05-2022 End: 07-08-2022 ambulatory UNKNOWN PROVIDER Facility:[facility] Start: 06-30-2022 End: 07-01-2022 ambulatory MILITARY EDUCATION COORDINATOR MELANI AUGUSTA Facility:H1 Start: 06-15-2022 End: 06-16-2022 ambulatory MILITARY EDUCATION COORDINATOR MELANI AICDANAZ Facility:[facility]1 Start: 06-04-2022 End: 06-04-2022 ambulatory MILITARY EDUCATION COORDINATOR MELANI AUGUSTA Facility:[facility]1 Start: 05-31-2022 End: 05-31-2022 ambulatory Rose De Other [facility] Other Start: 05-31-2022 Office outpatient vi sit 25 minutes Rose De [facility] [place] Start: 05-15-2022 End: 05-15-2022 ambulatory MILITARY EDUCATION COORDINATOR MELANI AUGUSTA Facility:[facility]1 Start: 05-04-2022 End: 05-04-2022 ambulatory ALEJANDRA LENIN . Facility: Start: 04-04-2022 Letter encounter Lili black Start: 03-24-2022 End: 03-24-2022 Phys/qhp telephone evaluation 11-20 min Lucía Calderon APRN-MILITARY EDUCATION COORDINATOR Work Phone: [facility] Comment on above: Shortness of breath (Primary Dx); [id number] condition Start: 12-28-2021 End: 12-28-2021 Emergency department patient visit Ricardo Ricardo Facility:[facility] Start: 09-10-2021 (URG) Urgent Care Visit Selene cui [facility] [place] Procedures Date Procedure Procedure Detail Performing Clinician Start: 07-10-2024 Microscopic observat ion [Identifier] in Cervix by Cyto stain Mahesh Rocha MD Work Phone: Start: 05-28-2024 Mammography Mahesh alexandra MD Work Phone: Plan of Treatment Date Care Activity Detail Author Start: 07-10-2027 Screening for malignant neoplasm of cervix [facility] Start: 05-28-2025 Screening for malignant neoplasm of breast Mammogram [facility] Start: 10-28-2024 End: 10-28-2024 Patient encounter procedure 10/28/2024 1:00 PM EST Office Visit [facility] [address] [place] [address] Melani Deras, STRATEGIC ACCOUNT DIRECTOR [address] [place] [address] [facility] Start: 09-19-2024 End: 09-19-2024 Patient encounter procedure 09/19/2024 2:20 PM EST Office Visit [facility] [address] [phone] Eddy Lorenzana MD [address] [facility] [address] [facility] [address] [place] [address] [facility] Start: 09-06-2024 End: 09-06-2024 Telemedicine consultation with patient 09/06/2024 1:10 PM EDT Telemedicine [facility] [address] [phone] Eddy Lorenzana MD [address] [address] [place] [address] [facility] Start: 08-13-2024 Influenza vaccination Influenza Vaccine (#1) [facility] Start: 12-25-2023 End: 12-25-2023 Clinical Support 12/25/2023 2:00 PM EST Clinical Support [facility] [address] [place] [address] Elvis Bronson, [facility] [address] [place] [address] [facility] Start: 12-21-2023 End: 12-21-2023 Patient encounter procedure 12/21/2023 2:20 PM EST Office Visit [facility] [address] [place] [address] Eddy Lorenzana MD [address] [place] [address] [facility] Start: 12-19-2023 End: 12-19-2023 Patient encounter procedure 12/19/2023 10:00 AM EST Office Visit [facility] [address] [place] [address] Eben Duque, [facility] [address] [place] [address] [facility] Start: 12-15-2023 End: 12-15-2023 Clinical Support 12/15/2023 1:00 PM EST Clinical Support [facility] [address] [place] [address] Elvis Bronson, [facility] [address] [place] [address] [facility] Start: 07-14-2023 COVID-19 Vaccine ( season) COVID-19 Vaccine ( season) [facility] Start: 07-14-2023 Influenza vaccination Influenza Vaccine (#1) [facility] Start: 08-13-2022 Influenza vaccination Influ[facility] Start: 07-05-2022 End: 07-05-2022 Telemedicine consultation with patient 07/05/2022 Telemedicine Rheumatology Lucía Calderon, BESS-MILITARY EDUCATION COORDINATOR [address] [place] [address] [facility] Start: 2019 Measurement of [...] 1999 Screening for malignant neoplasm of cervix [facility] Start: 1990 Screening for malignant neoplasm of cervix Pap Smear [facility] Start: 1988 Hepatitis A (HAV) Vaccine (optional start 19+ years) Hepatitis A (HAV) Vaccine (optional start 19+ years) [facility] Start: 1988 Hepatitis B vaccination Hepatitis B (HBV) Vaccine (1 of 3 - 19+ 3-dose series) [facility] Start: 1987 Hepatitis C screening Hepatitis [...] 1969 Screening for malignant neoplasm of colon [facility] Payers Date Payer Category Payer Self-pay 2019 Medicaid [id number] 2019 Private Health Insurance [facility] MEDICAID [id number] 1969 Unknown [id number] 2.16.840.1.084537.3.579.2. 593 1969 Unknown [id number] 2.16.840.1.764981.3.579.2. 593 1969 Unknown [id number] 2.16.840.1.206953.3.579.2. 593 1969 Unknown [id number] 2.16.840.1.763789.3.579.2. 593 1969 Unknown [id number] 2.16.840.1.985503.3.579.2. 593 1969 Unknown [id number] 2.16.840.1.919343.3.579.2. 593 1969 Unknown [id number] 2.16.840.1.907993.3.579.2. 593 1969 Unknown [id number] 2.16.840.1.024728.3.579.2. 593 1969 Unknown [id number] 2.16.840.1.632451.3.579.2. 593 1969 Unknown [id number] 2.16.840.1.624322.3.579.2. 593 1969 Unknown [id number] 2.16.840.1.695789.3.579.2. 593 1969 Unknown [id number] 2.16.840.1.796132.3.579.2. 593 1969 Unknown [id number] 2.16.840.1.081085.3.579.2. 732 1969 Unknown [id number] 2.16.840.1.126244.3.579.2. 9 1969 Unknown [id number] 2.16.840.1.026520.3.579.2. 1258 1969 Unknown [id number] 2.16.840.1.531286.3.579.2. 1258 1969 Unknown [id number] 2.16.840.1.085446.3.579.2. 1258 1969 Unknown [id number] 2.16.840.1.805246.3.579.2. 1258 1969 Unknown [id number] 2..840.1.914506.3.579.2. 1258 1969 Unknown [id number] 2..840.1.631535.3.579.2. 1258 1969 Unknown [id number] 2..840.1.491888.3.579.2. 1258 1969 Unknown [id number] 2..840.1.401327.3.579.2. 1258 1969 Unknown [id number] 2..840.1.364347.3.579.2. 1258 1969 Unknown [id number] 2..840.1.347378.3.579.2. 1258 1969 Unknown [id number] 2..840.1.145097.3.579.2. 1258 1969 Unknown [id number] 2..840.1.814681.3.579.2. 1258 1969 Unknown [id number] 2.16.840.1.082308.3.579.2. 1258 1969 Unknown [id number] 2.16.840.1.703617.3.579.2. 1258 1969 Unknown [id number] 2.16.840.1.551889.3.579.2. 1258 1969 Unknown [id number] 2.16.840.1.844072.3.579.2. 1259 1969 Unknown [id number] 2.16.840.1.124721.3.579.2. 1259 1969 Unknown [id number] 2.16.840.1.474290.3.579.2. 1259 1969 Unknown [id number] 2.16.840.1.166998.3.579.2. 1259 1959 Unknown [id number] 2.16.840.1.170440.19 1959 Unknown [id number] Unknown [id number] 2.16.840.1.218858.3.579.2. 531 Social History Date Type Detail Facility Start: 01-10-2022 End: 09-20-2024 Tobacco smoking status [facility] Never smoked tobacco [facility] Start: 01-10-2022 End: 07-27-2023 Tobacco use and exposure Smokeless tobacco non-user [facility] Start: 03-24-2022 End: 07-05-2022 Alcohol intake Ex-drinker (finding) [facility] Start: 1970 Sex Assigned At Not on file [facility] Start: 11-24-2023 End: 05-08-2024 Sex Assigned At [facility] Start: 11-28-2023 End: 08-07-2024 Alcohol intake Lifetime non-drinker (finding) [facility] Start: 11-24-2023 End: 05-08-2024 History of Social function [facility] Start: 12-19-2023 Alcohol Comment caffiene- 3 cups either coffee, tea or pop [facility] How often do you nee d to have someone help you when you read instructions, pamphlets, or other written material from your doctor or pharmacy [SILS] Rarely [facility] Do you belong to any clubs or organizations such as mandaeism groups, unions, fraternal or athletic groups, or school groups? No [facility] Are you now , , , , never or living with a partner? [facility] How often to you hav e a drink containing alcohol? Never [facility] How hard is it for y ou to pay for the very basics like food, housing, medical care, and heating Very hard [facility] Do you feel stress - tense, restless, nervous, or anxious, or unable to sleep at night because your mind is troubled all the time - these days [OSQ] Rather much [facility] (I/We) worried wheth er (my/our) food would run out before (I/we) got money to buy more. Often true [facility] The food that (I/we) bought just didn't last, and (I/we) didn't have money to get more. Sometimes true [facility] In the past 12 month s, was there a time when you were not able to pay the mortgage or rent on time? Yes [facility] Start: 09-20-2024 Sex Female (finding) [facility] Start: 1970 Sex Assigned At Female [facility] Medical Equipment Procedure Code Equipment Code Equipment Origin al Text Equipment Identifier Dates TEST ONCE DAILY [id number] Start: 02-15-2024 Clinical Notes 09-10-2021 to 09-02-2024 Telephone Encounter - Xenia Vega - 09/02/2024 3:09 PM EDTTelephone Encounter - Xenia Vega - 09/02/2024 3:09 PM Stella Bronson [facility] - 12/15/2023 1:00 PM EST Note Date & Type Note Facility 09-02-2024 Telephone encounter Note Form atting of this note might be different from the original. Spoke with patient regarding her most recent [employer] message to Dr Lorenzana. She is having worsening symptoms of twitching and has had to increase the amount of gabapentin she is taking nightly with no resolve to symptoms. She would like to discuss if she needs a Dr note/order to stop working until her symptoms improve - or what her options may be for this. As well as discussing treatment options to help w/ symptoms. Pt is scheduled for a video visit on Thursday 09/06 at 1:15pm to discuss further with Dr. Lorenzana [facility] 09-02-2024 Miscellaneous Notes Formattin g of this note might be different from the original. Spoke with patient regarding her most recent [employer] message to Dr Lorenzana. She is having worsening symptoms of twitching and has had to increase the amount of gabapentin she is taking nightly with no resolve to symptoms. She would like to discuss if she needs a Dr note/order to stop working until her symptoms improve - or what her options may be for this. As well as discussing treatment options to help w/ symptoms. Pt is scheduled for a video visit on Thursday 09/06 at 1:15pm to discuss further with Dr. 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 documented in this encounter [facility] 08-26-2023 Evaluation note Encounter Date Diagnosis Assessment Notes Aug, Left sided sciatica (ICD-10 - M54.32) Drink plenty fluids, get plenty of rest. Continue home medications as prescribed. Take the prednisone as prescribed until gone. Limit your lifting and bending for the next few days. Follow-up with your family physician next week for recheck. [facility] 07-11-2023 NoteSubjective Patient ID: Lu Cancino [...] she was taking vitamin supplementation and [employer] energy drinks, but that she had been [...] up in about 6 months (around 11/23/2023). Yimi Catalan, [id number]22 History of Present illness Narrative* Kvng AidanBESS preciado-MICHELL - 07/05/2022 1:13 PM EDT Images from the original note were not included. Documentation: Mode: Telephone Patient Patient Work Phone: Patient Cell Preferred phone: [phone] Consent: I confirmed patient understanding of the risks and benefits of telehealth visits and obtained consent to proceed with the telehealth visit. Location of Patient: Home of patient Post Covid Follow Up Telemedicine Visit Note: CC: f/u of [id number] condition Recall: Lu Cancino is a 51 [...] Also has neuropathy Patient still resides near [place], [place] PMH/PSH: Reviewed 07/05/22 Allergies: Per list, [...] Post Covid Nurse Practitioner documented in this [id number] Evaluation note* Encounter Date Diagnosis Assessment Notes [...] understanding and is agreeable to treatment plan [facility] 05-12-2022 History of Present illness Narrative* Lucía Calderon APRN-CNP - 03/24/2022 10:03 AM EDT Images from the original note were not included. Documentation: Mode: Telephone Patient Patient Work Phone: Patient Cell Preferred phone: [phone] Consent: I confirmed patient understanding of the risks and benefits of telehealth visits and obtained consent to proceed with the telehealth visit. Location of Patient: Home of patient Post Covid Follow Up Telemedicine Visit Note: CC: f/u of [id number] condition Recall: Lu Cancino is a 51 [...] Post Covid Nurse Practitioner documented in this [id number] Evaluation note* Encounter Date Diagnosis Assessment Notes [...] Patient care instructions given in writting by [facility] Home document. Additional time spent conducting pre-visit phone call, screening for symptoms, instructions on social distancing, application and removal of PPE, and cleaning of examination room, equipment and supplies was preformed. Patient education given for testing methodology and results. Patient care instructions given in writting by [facility] document. [facility] Other Evaluation note* Diagnosis Shortness of breath- Primary [id number] condition [facility] Diagnosis Chest pain, unspecified type- Primary [id number] condition [facility]* Diagnosis Myalgia Unspecified myalgia and myositis Numbness and tingling Disturbance of skin sensation Weakness Other malaise and fatigue [facility] Diagnosis Bipolar II disorder, most recent episode major depressive (CMS/HCC) Other bipolar disorders [facility]* Diagnosis Essential hypertension (CMS/HCC)- Primary Unspecified essential hypertension Morbid obesity (CMS/HCC) Morbid obesity Anxiety Anxiety state, unspecified Unspecified mood (affective) disorder (CMS/HCC) Encounter for screening mammogram for malignant neoplasm of breast- Primary Essential hypertension (CMS/HCC) Unspecified essential hypertension Gout, arthritis Gouty arthropathy, unspecified Edema of lower extremity Prediabetes Other abnormal glucose Vitamin deficiency Unspecified vitamin deficiency Morbid obesity (CMS/HCC) Morbid obesity Multiple joint pain Pain in joint, multiple sites Pap smear for cervical cancer screening Screening for malignant neoplasm of the cervix Fibromyalgia- Primary Unspecified myalgia and myositis FELICE (obstructive sleep apnea) Obstructive sleep apnea (adult) (pediatric) COVID-19 long hauler manifesting chronic dyspnea Essential hypertension (CMS/HCC) Unspecified essential hypertension Morbid obesity (CMS/HCC) Morbid obesity PELON (generalized anxiety disorder) (CMS/HCC) Generalized anxiety disorder Bipolar II disorder, most recent episode major depressive (CMS/HCC) Other bipolar disorders Prediabetes- Primary Other abnormal glucose FELICE (obstructive sleep apnea) Obstructive sleep apnea (adult) (pediatric) Essential hypertension (CMS/HCC) Unspecified essential hypertension Fibromyalgia Unspecified myalgia and myositis Edema of lower extremity Morbid obesity (CMS/HCC) Morbid obesity Bipolar II disorder, most recent episode major depressive (CMS/HCC) Other bipolar disorders PELON (generalized anxiety disorder) ([facility]/HCC) Generalized anxiety disorder Screening for colon cancer Special screening for malignant neoplasms, colon Vitamin deficiency- Primary Unspecified vitamin deficiency [facility] Diagnosis Essential hypertension (CMS/HCC)- Primary Unspecified essential hypertension Morbid obesity (CMS/HCC) Morbid obesity Anxiety Anxiety state, unspecified Unspecified mood (affective) disorder (CMS/HCC) Encounter for screening mammogram for malignant neoplasm of breast- Primary Essential hypertension (CMS/HCC) Unspecified essential hypertension Gout, arthritis Gouty arthropathy, unspecified Edema of lower extremity Prediabetes Other abnormal glucose Vitamin deficiency Unspecified vitamin deficiency Morbid obesity (CMS/HCC) Morbid obesity Multiple joint pain Pain in joint, multiple sites Pap smear for cervical cancer screening Screening for malignant neoplasm of the cervix Fibromyalgia- Primary Unspecified myalgia and myositis FELICE (obstructive sleep apnea) Obstructive sleep apnea (adult) (pediatric) COVID-19 long hauler manifesting chronic dyspnea Essential hypertension ([facility]/HCC) Unspecified essential hypertension Morbid obesity ([facility]/HCC) Morbid obesity PELON (generalized anxiety disorder) ([facility]) Generalized anxiety disorder Bipolar II disorder, most recent episode major depressive ([facility]/HCC) Other bipolar disorders Prediabetes- Primary Other abnormal glucose FELICE (obstructive sleep apnea) Obstructive sleep apnea (adult) (pediatric) Essential hypertension ([facility]) Unspecified essential hypertension Fibromyalgia Unspecified myalgia and myositis Edema of lower extremity Morbid obesity ([facility]/HCC) Morbid obesity Bipolar II disorder, most recent episode major depressive ([facility]/HCC) Other bipolar disorders PELON (generalized anxiety disorder) ([facility]) Generalized anxiety disorder Screening for colon cancer Special screening for malignant neoplasms, colon Gastroesophageal reflux disease, unspecified whether esophagitis present [facility] Diagnosis Essential hypertension (CMS/HCC)- Primary Unspecified essential hypertension Morbid obesity (CMS/HCC) Morbid obesity Anxiety Anxiety state, unspecified Unspecified mood (affective) disorder ([facility]) Encounter for screening mammogram for malignant neoplasm of breast- Primary Essential hypertension ([facility]/HCC) Unspecified essential hypertension Gout, arthritis Gouty arthropathy, unspecified Edema of lower extremity Prediabetes Other abnormal glucose Vitamin deficiency Unspecified vitamin deficiency Morbid obesity ([facility]/HCC) Morbid obesity Multiple joint pain Pain in joint, multiple sites Pap smear for cervical cancer screening Screening for malignant neoplasm of the cervix Fibromyalgia- Primary Unspecified myalgia and myositis FELICE (obstructive sleep apnea) Obstructive sleep apnea (adult) (pediatric) COVID-19 long hauler manifesting chronic dyspnea Essential hypertension (CMS/HCC) Unspecified essential hypertension Morbid obesity (CMS/HCC) Morbid obesity PELON (generalized anxiety disorder) (CMS/HCC) Generalized anxiety disorder Bipolar II disorder, most recent episode major depressive (CMS/HCC) Other bipolar disorders Prediabetes- Primary Other abnormal glucose FELICE (obstructive sleep apnea) Obstructive sleep apnea (adult) (pediatric) Essential hypertension (CMS/HCC) Unspecified essential hypertension Fibromyalgia Unspecified myalgia and myositis Edema of lower extremity Morbid obesity (CMS/HCC) Morbid obesity Bipolar II disorder, most recent episode major depressive (CMS/HCC) Other bipolar disorders PELON (generalized anxiety disorder) (CMS/HCC) Generalized anxiety disorder Screening for colon cancer Special screening for malignant neoplasms, colon Fibromyalgia- Primary Unspecified myalgia and myositis Gastroesophageal reflux disease, unspecified whether esophagitis present Edema of lower extremity documented [facility] noteNo assessment information availablePremier Health [facility] Work Phone: History general Narrative - Reported* Type Description Date Medical History Seasonal Allergies Medical History rheumatoid arthritis Surgical History C section X2 Hospitalization History see above [facility] Other History general Narrative - Reported* Type Description Date Medical History Seasonal Allergies Medical History rheumatoid arthritis Medical History neuropathy Surgical History C section X2 Hospitalization History Covid 2021 [facility] Other Summary Purpose Family History Relationship Condition Age at Onset Recorded Date/T cheryl father Unknown mother Unknown Advance Directives Advance Directive Response Recorded Date/ Time Advance Directives No November 20, 2017 10:40am Chief Complaint and Reason for Visit Chief Complaint Admit Date Sciatica hip pain September 20, 2024 6 :28pm Additional Source Comments INFORMATION SOURCE (unrecogn ized section and content) DATE CREATED AUTHOR 04/18/2019 [facility] DATE CREATED AUTHOR AUTHOR'S ORGANIZ ATION 12/17/2022 [facility] DATE CREATED AUTHOR AUTHOR'S ORGANIZ ATION 03/24/2023 [facility] DATE CREATED AUTHOR AUTHOR'S ORGANIZ ATION 04/21/2023 [facility] DATE CREATED AUTHOR AUTHOR'S ORGANIZ ATION 05/25/2023 [facility] DATE CREATED AUTHOR AUTHOR'S ORGANIZ ATION 09/08/[address] 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 Start Date End Date Mahesh Rocha MD [address] [place] [phone] PCP - General Family Medicine 02/01/24 Melani Deras NP [address] [place] [phone] Nurse Practitioner Family Medicine 02/01/24 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 Start Date End Date Mahesh Rocha MD [address] [place] [phone] PCP - General Family Medicine 02/01/24 Melani Deras NP [address] [place] [phone] Nurse Practitioner Family Medicine 02/01/24 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 Start Date End Date Mahesh Rocha MD [address] [place] [phone] PCP - General Family Medicine 02/01/24 Melani Deras NP [address] [place] [phone] Nurse Practitioner Family Medicine 02/01/24 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 Start Date End Date Mahesh Rocha MD [address] [place] [address] PCP - General Family Medicine 02/01/24 Melani Deras NP [address] [place] [phone] Nurse Practitioner Family Medicine 02/01/24 Team Status: Active Member Role Status Dates Mahesh Rocha MD Primary Care Provider Active Team Status: Inactive Member Role Status Dates Mahesh Rocha MD Primary Care Provider Active S tart: September 20, 2024 End: September 20, 2024 Gini Nunez APRN Active Start : September 20, 2024 End: September 20, 2024 Louise Ascencio APRN Attending Provider Active S tart: September 20, 2024 End: September 20, 2024 Goals (unrecognized section and content) Goals may be documented in a n alternate section FOR RECORDS PERTAINING TO PATIENTS WHO ARE [...] BE BASED ON THE PRIMARY CLINICAL RECORDS. [facility]. provides no warranty or guarantee of the accuracy or completeness of information in this document.
== END 2024-10-15 15:23 | disposition home or self-care (01) ==
LOC: ER 16:07
PROVIDERS: Emergency Provider Emergency Medicine; PCP Nurse Practitioner
DX: K04.7 Periapical abscess without sinus (principal); K02.9 Dental caries, unspecified; R21 Rash and other nonspecific skin eruption
CPT/HCPCS: 64450; 99283; J0665

== ENCOUNTER 2024-10-23 18:49 | Emergency (ER) | payer OTHER, SELFPAY ==
[2024-10-23] VITALS (18 sets, daily range): BP systolic 129–174; BP diastolic 58–75; PULSE 70–130; TEMP 36.8; O2SAT 94–98; BMI 49.4
--- OUTSIDE RECORDS SUMMARY | 2024-10-23 19:04 | XMS_ITS | CCD ---
Author Organization [facility] CliniSyid Care Team Providers Care Pharmacy Informaticist Name Role Phone Unavailable Primary Care Provider UnavailSelene Garrison Unavailable Rose De Unavailable Unavailable Primary Care Provider UnavailRicardo Sands Attending Unavailable Ricardo Ricardo Admitting Unavailable Mahesh Rocha Primary Care Unavailable Unavailable Primary Care Provider Unavailcolby e AICHHOLZ, PUPPET MASTER MELANI Primary Care Unavailable AICHHOLZ, PUPPET MASTER MELANI Attending Unavailable AICHHOLZ, PUPPET MASTER MELANI Admitting Unavailable AICHHOLZ, PUPPET MASTER MELANI Consulting Unavailable AICHHOLZ, PUPPET MASTER MELANI Consulting Unavailable AICHHOLZ, PUPPET MASTER MELANI Attending Unavailable AICHHOLZ, PUPPET MASTER MELANI Admitting Unavailable AICHHOLZ, PUPPET MASTER MELANI Primary Care Unavailable AICHHOLZ, PUPPET MASTER MELANI Primary Care Unavailable LEES ., DR YIMI Last Attending Unavailable LEES ., DR YIMI Last Admitting Unavailable LEES ., DR YIMI Last Consulting Unavailable MARCOS NEWBERRY Consulting Unavailable SERAFIN, MELANI Consulting Unavailable VANESSA MARTINEZ Unavailable AICHHOLZ, PUPPET MASTER MELANI Admitting Unavailable AICHHOLZ, PUPPET MASTER MELANI Primary Care Unavailable AICHHOLZ, PUPPET MASTER MELANI Attending Unavailable DR VANESSA PRESLEY V Consulting Unavailable AICHHOLZ, PUPPET MASTER MELANI Consulting Unavailable AICHHOLZ, PUPPET MASTER MELANI Admitting Unavailable AICHHOLZ, PUPPET MASTER MELANI Primary Care Unavailable AICHHOLZ, PUPPET MASTER MELANI Consulting Unavailable AICHHOLZ, PUPPET MASTER MELANI Attending Unavailable AICHHOLZ, PUPPET MASTER MELANI Attending Unavailable AICHHOLZ, PUPPET MASTER MELANI Admitting Unavailable DR VANESSA PRESLEY V Consulting Unavailable AICHHOLZ, PUPPET MASTER MELANI Primary Care Unavailable AICHHOLZ, PUPPET MASTER MELANI Consulting Unavailable AICHHOLZ, PUPPET MASTER MELANI Admitting Unavailable AICHHOLZ, PUPPET MASTER MELANI Consulting Unavailable AICHHOLZ, PUPPET MASTER MELANI Attending Unavailable AICHHOLZ, PUPPET MASTER MELANI Primary Care Unavailable SAMSA ., SLADE Attending Unavailable SAMSA ., SLADE Admitting Unavailable AICHHOLZ, PUPPET MASTER MELANI Primary Care Unavailable DR PASTOR ESPANA Consulting Unavailable SAMSA ., SLADE Consulting Unavailable AICHHOLZ, PUPPET MASTER MELANI Admitting Unavailable AICHHOLZ, PUPPET MASTER MELANI Consulting Unavailable AICHHOLZ, PUPPET MASTER MELANI Attending Unavailable AICHHOLZ, PUPPET MASTER MELANI Primary Care Unavailable AICHHOLZ, PUPPET MASTER MELANI Primary Care Unavailable PAY ., DR BECK Attending Unavailable PAY ., DR BECK Admitting Unavailable PAY ., DR BECK Consulting Unavailable PHUONGCHMINNIE ., KARTHIKEYAN KLINE Consulting Unavailabl e AICHHOLZ, PUPPET MASTER MELANI Primary Care Unavailable ANTONIA ., KARTHIKEYAN KLINE Consulting Unavailabl e LENIN ., ALEJANDRA Attending Unavailable LENIN ., ALEJANDRA Admitting Unavailable LENIN ., ALEJANDRA Admitting Unavailable AICHHOLZ, PUPPET MASTER MELANI Primary Care Unavailable MARCOS NEWBERRY Unavailable LEINN ., ALEJANDRA Attending Unavailable LENIN ., ALEJANDRA Consulting Unavailable PROVIDER, UNKNOWN Attending Unavailable PROVIDER, UNKNOWN Admitting Unavailable PATIENT, SELF Referring Unavailable FRACISCO SKAGGS Attending Unavailable Unavailable Primary Care Provider Unavailcolby Rocha MD, Mahesh Primary Care Provider Aichholz INTERNAL SALES, Melani Unavailable EDDY LORENZANA Attending Unavailable ELVIS [...] (1 source) Allopurinol Drug Allergy 3 [facility] Repository (1 source) TETANUS AND DIPHTHERIA TOXOIDS; Translations: [TETANUS AND DIPHTHERIA TOXOIDS] Propensity to adverse reactions to drug (disorder) 2 [facility] Repository Medications Current Medications Medication Drug Class(es) [...] by mouth in the morning. 0 Active [id number] 0.3 ml EPINEPHrine 1 mg/ml auto-injector (4 [...] 07/03/2024 Active take 1 capsule by mo [facility] at bedtime gabapentin (Neurontin) 100 MG capsule Indications: Neuropathic Pain Take 100 mg by mouth at bedtime. 0 Active Gabapentin Activ e Gelatin Capsules (Empty) (Capsule #3) capsule (1 source) Start: 09-20-2024 Gelatin Capsules (Empty) (Capsule #3) capsule Active CAP PO September 20, 2024 12:00am Gelatin Capsules, Empty, (Empty Capsule Size 3 Merced/Clr) capsule (4 sources) Start: 01-30-2024 Gelatin Capsules, Empty, (Empty Capsule Size 3 Merced/Clr) capsule 01/30/2024 Active hydrOXYzine hydrochloride 25 mg [...] 30 g 11 12/06/2023 01/05/2024 Active nystatin 606405 unt/ml oral suspension (2 sources) Polyene Antifungal Start: 05-31-2022 take 4 mL by mouth four times daily Nystatin 260882 UNIT/ML 4 ml swish and spit Mouth/Throat [...] 1.5 mg/ml oral solution (3 sources) Uncompetitive G-idzwrh-Y-aspartate Receptor Antagonist, Sigma-1 Agonist Start: 06-26-2021 [place] DM 7.5-7.5 MG/5ML 10 ml Orally every [...] 09-26-2023 Chronic Other aftercare (1 source) Other alf (current) drug therapy; Translations: [OTH [facility] CURRENT DRUG THERAPY] Onset: 01-25-2023 Episodic Other aftercare (1 source) 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 THE [employer] GUIDELINES RECOMMEND THAT WOMEN 40 [...] MD Normal Not Available Follow-Upon 05-23-2023 Follow-Up [id number] Lu Cancino 1970 F Date Provider Department Center 05/23/2023 [facility]FRACISCO SKAGGS [facility] Joselito Heal Family History Family history unknown: Yes Level of Service:94306 [place] OFFICE/OUTPATIENT ESTABLISHED MOD MDM 30-39 MIN Reason for Visit and Comments: Follow-up [021351] - Flare up Normal [facility] XR KUB 1 VIEWon 03-22-2023 XR KUB [...] VANESSA PRESLEY Date: 2023-03-22 07:45 Normal [facility] UA RANDOM W/MICROSCOPICon BACTERIA TRACE Abnormal NONE SEEN [facility] Comment on above: Performed By: #### U AMIC #### [facility] [address] [address] [address] Bertram Paulino Bilirubin Ql (U) Negative Normal NEGATIVE [facility] Comment on above: Performed By: #### U AMIC #### [facility] [address] [address] [address] Bertram Paulino CAST NONE SEEN Normal NONE SEEN [facility] Comment on above: Performed By: #### U AMIC #### [facility] [address] [address] [address] Bertram Paulino Clarity (U) CLEAR Normal CLEAR [facility] Comment on above: Performed By: #### U AMIC #### [facility] [address] [address] [address] Bertram Paulino Color (U) LT. YELLOW Normal YELLOW [facility] Comment on above: Performed By: #### U AMIC #### [facility] [address] [address] [address] Bertram Paulino Crystals LM Nom (Urine sed) NONE SEEN Normal NONE SEEN [facility] Comment on above: Performed By: #### U AMIC #### [facility] [address] [address] [address] Bertram Paulino Epithelial cells LM Ql (Urine sed) RARE Normal NONE SEEN /RARE [facility] Comment on above: Performed By: #### U AMIC #### [facility] [address] [place] [address] Dr. Bertram Paulino Glucose Ql (U) Negative Normal NEGATIVE [facility] Comment on above: Performed By: #### U AMIC #### [facility] [address] [place] [address] Dr. Bertram Paulino Hemoglobin Ql (U) Negative Normal NEGATIVE [facility] Comment on above: Performed By: #### U AMIC #### [facility] [address] [place] [address] Dr. Bertram Paulino Ketones Ql (U) Negative Normal NEGATIVE [facility] Comment on above: Performed By: #### U AMIC #### [facility] [address] [place] [address] Dr. Bertram Paulino LEUKOCYTES Negative Normal NEGATIVE [facility] Comment on above: Performed By: #### U AMIC #### [facility] [address] [place] [address] Dr. Bertram Paulino MUCOUS NONE SEEN Normal NONE SEEN [facility] Comment on above: Performed By: #### U AMIC #### [facility] [address] [place] [address] Dr. Bertram Paulino Nitrite Ql (U) Negative Normal NEGATIVE [facility] Comment on above: Performed By: #### U AMIC #### [facility] [address] [place] [address] Dr. Bertram Paulino pH (U) 8.5 [pH] Normal 5-9 [facility] Comment on above: Performed By: #### U AMIC #### [facility] [address] [address] [address] Bertram Paulino RBC 0-2 Normal 0-2 [facility] Comment on above: Performed By: #### U AMIC #### [facility] [address] [place] [address] Dr. Bertram Paulino SPEC GRAVITY 1.015 Normal 1.005-<=1.025 [facility] Comment on above: Performed By: #### U AMIC #### [facility] [address] [place] [address] Dr. Bertram Paulino UA PROTEIN Negative Normal NEGATIVE/ TRACE [facility] Comment on above: Performed By: #### U AMIC #### [facility] [address] [place] [address] Dr. Bertram Paulino Urobilinogen Qn (U) 0.2 {Yazmin'U}/dL Normal 0.2 - 1. 0 [facility] Comment on above: Performed By: #### U AMIC #### [facility] [address] [place] [address] Dr. Bertram Paulino WBC NONE SEEN Normal NONE SEEN [facility] Comment on above: Performed By: #### U AMIC #### [facility] [address] [place] [address] Dr. Bertram Paulino CBC AUTO DIFFon 01-23-2023 BASO # 0.0 103/ul Normal 0.0-0.1 [facility] Comment on above: Performed By: #### C MP, LIPID, TSH #### [facility] [address] [place] [address] Dr. Bertram Paulino Basophils/100 WBC (Bld) 0.5 % Normal 0.2-2.0 [facility] Comment on above: Performed By: #### C MP, LIPID, TSH #### [facility] [address] [place] [address] Dr. Bertram Paulino EO # 0.1 103/ul Normal 0.0-0.7 [facility] Comment on above: Performed By: #### C MP, LIPID, TSH #### [facility] [address] [place] [address] Dr. Bertram Paulino Eosinophils/100 WBC (Bld) 1.2 % Normal 0.9-7.0 [facility] Comment on above: Performed By: #### C MP, LIPID, TSH #### [facility] [address] [place] [address] Dr. Bertram aPulino Erythrocyte distribution width (RBC) [Ratio] 12.8 % Normal 11.0-15.0 [facility] Comment on above: Performed By: #### C MP, LIPID, TSH #### [facility] [address] [place] [address] Dr. Bertram Paulino Hematocrit (Bld) [Volume fraction] 38.9 % Normal 36.0-48.0 [facility] Comment on above: Performed By: #### C MP, LIPID, TSH #### [facility] [address] [place] [address] Dr. Bertram Paulino Hemoglobin (Bld) [Mass/Vol] 13.3 g/dL Normal 12.0-16.0 [facility] Comment on above: Performed By: #### C MP, LIPID, TSH #### [facility] [address] [place] [address] Dr. Bertram Paulino IG # 0.04 10e3/ul Critically high 0.00-0.03 [facility] Comment on above: Performed By: #### C MP, LIPID, TSH #### [facility] [address] [place] [address] Dr. Bertram Paulino IG % 0.5 % Normal 0.0-0.5 [facility] Comment on above: Performed By: #### C MP, LIPID, TSH #### [facility] [address] [place] [address] Dr. Bertram Paulino LYMPH # 1.9 103/ul Normal 1.2-3.8 [facility] Comment on above: Performed By: #### C MP, LIPID, TSH #### [facility] [address] [place] [address] Dr. Bertram Paulino Lymphocytes/100 WBC (Bld) 24.7 % Normal 20.5-60.0 [facility] Comment on above: Performed By: #### C MP, LIPID, TSH #### [facility] [address] [place] [address] Dr. Bertram Paulino MANUAL DIFF REQ NO Normal [facility] Comment on above: Performed By: #### C MP, LIPID, TSH #### [facility] [address] [place] [address] Dr. Bertram Paulino MCH (RBC) [Entitic mass] 30.0 pg Normal 26.7-34.0 [facility] Comment on above: Performed By: #### C MP, LIPID, TSH #### [facility] [address] [place] [address] Dr. Bertram Paulino MCHC (RBC) [Mass/Vol] 34.2 g/dL Normal 29.9-35.2 [facility] Comment on above: Performed By: #### C MP, LIPID, TSH #### [facility] [address] [place] [address] Dr. Bertram Paulino MCV (RBC) [Entitic vol] 87.6 fL Normal 81.0-99.0 [facility] Comment on above: Performed By: #### C MP, LIPID, TSH #### [facility] [address] [place] [address] Dr. Bertram Paulino MONO # 0.4 103/ul Normal 0.3-0.8 [facility] Comment on above: Performed By: #### C MP, LIPID, TSH #### [facility] [address] [place] [address] Dr. Bertram Paulino Monocytes/100 WBC (Bld) 5.3 % Normal 1.7-12.0 [facility] Comment on above: Performed By: #### C MP, LIPID, TSH #### [facility] [address] [place] [address] Dr. Bertram Paulino NEUT # 5.1 103/ul Normal 1.4-6.5 [facility] Comment on above: Performed By: #### C MP, LIPID, TSH #### [facility] [address] [place] [address] Dr. Bertram Paulino Neutrophils/100 WBC (Bld) 67.8 % Normal 43.0-75.0 [facility] Comment on above: Performed By: #### C MP, LIPID, TSH #### [facility] [address] [place] [address] Dr. Bertram Paulino Platelet mean volume (Bld) [Entitic vol] 10.7 fL Normal 9.5-13.5 [facility] Comment on above: Performed By: #### C MP, LIPID, TSH #### [facility] [address] [place] [address] Dr. Bertram Paulino PLT 270 103/ul Normal 150-450 [facility] Comment on above: Performed By: #### C MP, LIPID, TSH #### [facility] [address] [place] [address] Dr. Bertram Paulino RBC 4.44 106/ul Normal 4.20-5.40 [facility] Comment on above: Performed By: #### C MP, LIPID, TSH #### [facility] [address] [place] [address] Dr. Bertram Paulino WBC 7.5 103/ul Normal 4.0-11.0 [facility] Comment on above: Performed By: #### C MP, LIPID, TSH #### [facility] [address] [place] [address] Dr. Bertram Paulino ER URINE PROFILEon 3 Bilirubin Ql (U) Negative Normal NEGATIVE [facility] Comment on above: Performed By: #### C MP, LIPID, TSH #### [facility] [address] [place] [address] Dr. Bertram Paulino Clarity (U) CLEAR Normal CLEAR [facility] Comment on above: Performed By: #### C MP, LIPID, TSH #### [facility] [address] [place] [address] Dr. Bertram Paulino Color (U) LT. YELLOW Normal YELLOW [facility] Comment on above: Performed By: #### C MP, LIPID, TSH #### [facility] [address] [address] [address] Bertram ETIENNE A micrscopic examination will be performed if indicated. Normal [facility] Comment on above: Performed By: #### C MP, LIPID, TSH #### [facility] [address] [address] [address] Bertram Paulino Glucose Ql (U) Negative Normal NEGATIVE [facility] Comment on above: Performed By: #### C MP, LIPID, TSH #### [facility] [address] [address] [address] Bertram Paulino Hemoglobin Ql (U) Negative Normal NEGATIVE [facility] Comment on above: Performed By: #### C MP, LIPID, TSH #### [facility] [address] [address] [address] Bertram Paulino Ketones Ql (U) Negative Normal NEGATIVE [facility] Comment on above: Performed By: #### C MP, LIPID, TSH #### [facility] [address] [address] [address] Bertram Paulino LEUKOCYTES Negative Normal NEGATIVE [facility] Comment on above: Performed By: #### C MP, LIPID, TSH #### [facility] [address] [address] [address] Bertram Paulino Nitrite Ql (U) Negative Normal NEGATIVE [facility] Comment on above: Performed By: #### C MP, LIPID, TSH #### [facility] [address] [address] [address] Bertram Paulino pH (U) 7.0 [pH] Normal 5-9 [facility] Comment on above: Performed By: #### C MP, LIPID, TSH #### [facility] [address] [address] [address] Bertram Paulino SPEC GRAVITY <=1.005 Abnormal 1.005-<=1.025 [facility] Comment on above: Performed By: #### C MP, LIPID, TSH #### [facility] [address] [place] [address] Dr. Bertram Paulino UA PROTEIN Negative Normal NEGATIVE/ TRACE [facility] Comment on above: Performed By: #### C MP, LIPID, TSH #### [facility] [address] [place] [address] Dr. Bertram Paulino UR MICRO IND NOT INDICATED Normal [facility] Comment on above: Performed By: #### C MP, LIPID, TSH #### [facility] [address] [address] [address] Bertram Paulino Urobilinogen Qn (U) 0.2 {Yazmin'U}/dL Normal 0.2 - 1. 0 [facility] Comment on above: Performed By: #### C MP, LIPID, TSH #### [facility] [address] [place] [address] Dr. Bertram Paulino MONOon 01-23-2023 Monocytes (Bld) [#/Vol] Negative Normal NEGATIVE [facility] Comment on above: Performed By: #### C MP, LIPID, TSH #### [facility] [address] [place] [address] Dr. Bertram Paulino PROF 14(COMP METB)on 023 Albumin [Mass/Vol] 4.1 g/dL Normal 3.4-5.0 [facility] Comment on above: Performed By: #### H STROPN, TSH, CMP #### [facility] [address] [place] [address] Dr. Bertram Paulino Albumin/Globulin [Mass ratio] 1.2 {ratio} Normal [facility] Comment on above: Performed By: #### H STROPN, TSH, CMP #### [facility] [address] [place] [address] Dr. Bertram Paulino ALP [Catalytic activity/Vol] 71 U/L Normal 46-116 [facility] Comment on above: Performed By: #### H STROPN, TSH, CMP #### [facility] [address] [place] [address] Dr. Bertram Paulino ALT [Catalytic activity/Vol] 53 U/L Normal 14-59 [facility] Comment on above: Performed By: #### H STROPN, TSH, CMP #### [facility] [address] [place] [address] Dr. Bertram Paulino Anion gap [Moles/Vol] 8.1 mmol/L Normal [facility] Comment on above: Performed By: #### H STROPN, TSH, CMP #### [facility] [address] [address] [address] Bertram Paulino AST [Catalytic activity/Vol] 35 U/L Normal 15-37 [facility] Comment on above: Performed By: #### H STROPN, TSH, CMP #### [facility] [address] [address] [address] Bertram Paulino Bilirubin [Mass/Vol] 0.3 mg/dL Normal 0.2-1.0 [facility] Comment on above: Performed By: #### H STROPN, TSH, CMP #### [facility] [address] [address] [address] Bertram Paulino Calcium [Mass/Vol] 9.3 mg/dL Normal 8.5-10.1 [facility] Comment on above: Performed By: #### H STROPN, TSH, CMP #### [facility] [address] [address] [address] Bertram Paulino Chloride [Moles/Vol] 103 mmol/L Normal 98-107 [facility] Comment on above: Performed By: #### H STROPN, TSH, CMP #### [facility] [address] [place] [address] Dr. Bertram Paulino CO2 [Moles/Vol] 29.5 mmol/L Normal 21.0-32.0 [facility] Comment on above: Performed By: #### H STROPN, TSH, CMP #### [facility] [address] [place] [address] Dr. Bertram Paulino Creatinine [Mass/Vol] 0.62 mg/dL Normal 0.55-1.02 [facility] Comment on above: Performed By: #### H STROPN, TSH, CMP #### [facility] [address] [address] [address] Bertram Paulino EGFR-AF INDIAN >60 Normal >=60 [facility] Comment on above: Performed By: #### H STROPN, TSH, CMP #### [facility] [address] [address] [address] Bertram Paulino EGFR-NON AF INDIAN >60 Normal >=60 [facility] Comment on above: Performed By: #### H STROPN, TSH, CMP #### [facility] [address] [address] [address] Bertram Paulino Globulin (S) [Mass/Vol] 3.3 g/dL Normal [facility] Comment on above: Performed By: #### H STROPN, TSH, CMP #### [facility] [address] [address] [address] Bertram Paulino Glucose [Mass/Vol] 121 mg/dL Critically high 74-106 [facility] Comment on above: Performed By: #### H STROPN, TSH, CMP #### [facility] [address] [address] [address] Bertram Paulino Potassium [Moles/Vol] 3.6 mmol/L Normal 3.5-5.1 [facility] Comment on above: Performed By: #### H STROPN, TSH, CMP #### [facility] [address] [address] [address] Bertram Paulino Protein [Mass/Vol] 7.4 g/dL Normal 6.4-8.2 [facility] Comment on above: Performed By: #### H STROPN, TSH, CMP #### [facility] [address] [address] [address] Bertram Paulino Sodium [Moles/Vol] 137 mmol/L Normal 136-145 [facility] Comment on above: Performed By: #### H STROPN, TSH, CMP #### [facility] [address] [address] [address] Bertram Paulino Urea nitrogen [Mass/Vol] 9.0 mg/dL Normal 7.0-18.0 [facility] Comment on above: Performed By: #### H STROPN, TSH, CMP #### [facility] [address] [address] [address] Bertram Paulino Urea nitrogen/Creatinine [Mass ratio] 14.5 mg/mg Normal [facility] Comment on above: Performed By: #### H STROPN, TSH, CMP #### [facility] [address] [address] [address] Bertram Paulino PROTIMEon 01-23-2023 INR Coag (PPP) [Relative time] {INR} Normal [facility] Comment on above: Performed By: #### C MP, LIPID, TSH #### [facility] [address] [address] [address] Bertram Paulino INR GUIDELINES SEE BELOW Normal [facility] Comment on above: Result Comment: TYRA RED INR: 2.0 - 3.0 CONDITIONS NOT LISTED BELOW 2.5 - 3.5 FOR PROSTHETIC HEART VALVE REPLACEMENT 2.5 - 3.5 RECURRENT THROMBOSIS Performed By: #### C MP, LIPID, TSH #### [facility] [address] [place] [address] Dr. Bertram Paulino PT Coag (PPP) [Time] 9.6 s Normal 9.0-11.6 [facility] Comment on above: Performed By: #### C MP, LIPID, TSH #### [facility] [address] [place] [address] Dr. Bertram Paulino PTTon 01-23-2023 aPTT Coag (Bld) [Time] s Normal 22.3-36.2 [facility] Comment on above: Performed By: #### C MP, LIPID, TSH #### [facility] [address] [place] [address] Dr. Bertram Paulino TROPONIN, HIGH SENSITIVITYon 01-23-2023 HSTROP 4.8 pg/mL Normal 4.0-51.3 The [facility] Comment on above: Result Comment: CUT- OFF POINTS HAVE BEEN ESTABLISHED BASED ON THE FOURTH UNIVERSAL DEFINITIONS OF MYOCARDIAL INFARCTION. THE UPPER REFERENCE LIMIT (URL) OF TROPONIN, DEFINED THE 99TH PERCENTILE OF cTnI DISTRIBUTION IN A REFERENCE POPULATION, HAS BEEN CONFIRMED THE DECISION THRESHOLD FOR NV DIAGNOSIS. Performed By: #### C MP, LIPID, TSH #### [facility] [address] [place] [address] Dr. Bertram Paulino TSHon 01-23-2023 TSH 2.684 uIU/mL Normal 0.358-3.740 [facility] Comment on above: Performed By: #### H STROPN, TSH, CMP #### [facility] [address] [place] [address] Dr. Bertram Paulino CBC AUTO DIFFon 01-12-2023 BASO # 0.0 103/ul Normal 0.0-0.1 [facility] Comment on above: Performed By: #### C MP, LIPID, TSH #### [facility] [address] [place] [address] Dr. Bertram Paulino Basophils/100 WBC (Bld) 0.5 % Normal 0.2-2.0 [facility] Comment on above: Performed By: #### C MP, LIPID, TSH #### [facility] [address] [place] [address] Dr. Bertram Paulino EO # 0.2 103/ul Normal 0.0-0.7 [facility] Comment on above: Performed By: #### C MP, LIPID, TSH #### [facility] [address] [place] [address] Dr. Bertram Paulino Eosinophils/100 WBC (Bld) 3.6 % Normal 0.9-7.0 [facility] Comment on above: Performed By: #### C MP, LIPID, TSH #### [facility] [address] [place] [address] Dr. Bertram Paulino Erythrocyte distribution width (RBC) [Ratio] 12.7 % Normal 11.0-15.0 [facility] Comment on above: Performed By: #### C MP, LIPID, TSH #### [facility] [address] [place] [address] Dr. Bertram Paulino Hematocrit (Bld) [Volume fraction] 37.6 % Normal 36.0-48.0 [facility] Comment on above: Performed By: #### C MP, LIPID, TSH #### [facility] [address] [place] [address] Dr. Bertram Paulino Hemoglobin (Bld) [Mass/Vol] 12.7 g/dL Normal 12.0-16.0 [facility] Comment on above: Performed By: #### C MP, LIPID, TSH #### [facility] [address] [address] [address] Bertram Paulino IG # 0.02 10e3/ul Normal 0.00-0.03 [facility] Comment on above: Performed By: #### C MP, LIPID, TSH #### [facility] [address] [address] [address] Bertram Paulino IG % 0.3 % Normal 0.0-0.5 [facility] Comment on above: Performed By: #### C MP, LIPID, TSH #### [facility] [address] [address] [address] Bertram Paulino LYMPH # 2.2 103/ul Normal 1.2-3.8 [facility] Comment on above: Performed By: #### C MP, LIPID, TSH #### [facility] [address] [place] [address] Dr. Bertram Paulino Lymphocytes/100 WBC (Bld) 35.7 % Normal 20.5-60.0 [facility] Comment on above: Performed By: #### C MP, LIPID, TSH #### [facility] [address] [address] [address] Bertram Paulino MANUAL DIFF REQ NO Normal [facility] Comment on above: Performed By: #### C MP, LIPID, TSH #### [facility] [address] [address] [address] Bertram Paulino MCH (RBC) [Entitic mass] 29.7 pg Normal 26.7-34.0 [facility] Comment on above: Performed By: #### C MP, LIPID, TSH #### [facility] [address] [place] [address] Dr. Bertram Paulino MCHC (RBC) [Mass/Vol] 33.8 g/dL Normal 29.9-35.2 [facility] Comment on above: Performed By: #### C MP, LIPID, TSH #### [facility] [address] [place] [address] Dr. Bertram Paulino MCV (RBC) [Entitic vol] 88.1 fL Normal 81.0-99.0 [facility] Comment on above: Performed By: #### C MP, LIPID, TSH #### [facility] [address] [place] [address] Dr. Bertram Paulino MONO # 0.3 103/ul Normal 0.3-0.8 [facility] Comment on above: Performed By: #### C MP, LIPID, TSH #### [facility] [address] [place] [address] Dr. Bertram Paulino Monocytes/100 WBC (Bld) 5.1 % Normal 1.7-12.0 [facility] Comment on above: Performed By: #### C MP, LIPID, TSH #### [facility] [address] [place] [address] Dr. Bertram Paulino NEUT # 3.4 103/ul Normal 1.4-6.5 [facility] Comment on above: Performed By: #### C MP, LIPID, TSH #### [facility] [address] [place] [address] Dr. Bertram Paulino Neutrophils/100 WBC (Bld) 54.8 % Normal 43.0-75.0 [facility] Comment on above: Performed By: #### C MP, LIPID, TSH #### [facility] [address] [place] [address] Dr. Betrram Paulino Platelet mean volume (Bld) [Entitic vol] 10.3 fL Normal 9.5-13.5 [facility] Comment on above: Performed By: #### C MP, LIPID, TSH #### [facility] [address] [place] [address] Dr. Bertram Paulino PLT 269 103/ul Normal 150-450 [facility] Comment on above: Performed By: #### C MP, LIPID, TSH #### [facility] [address] [place] [address] Dr. Bertram Paulino RBC 4.27 106/ul Normal 4.20-5.40 [facility] Comment on above: Performed By: #### C MP, LIPID, TSH #### [facility] [address] [place] [address] Dr. Bertram Paulino WBC 6.1 103/ul Normal 4.0-11.0 [facility] Comment on above: Performed By: #### C MP, LIPID, TSH #### [facility] [address] [address] [address] Bertram Paulino FREE T4on 01-12-2023 Free T4 [Mass/Vol] 1.00 ng/dL Normal 0.76-1.46 [facility] Comment on above: Performed By: #### C MP, LIPID, TSH #### [facility] [address] [address] [address] Bertram Paulino GLYCOHEMOGLOBIN A1Con 2022 ADA RECOMMENDATION SEE BELOW Normal [facility] Comment on above: Result Comment: ADA RECOMMENDED LIMIT 4.0 - 6.0 ADA THERAPEUTIC TARGET < 7.0 ACTION SUGGESTED > 7.0 Performed By: #### C MP, LIPID, TSH #### [facility] [address] [place] [address] Dr. Bertram Paulino Glucose [Mass/Vol] 126 mg/dL Normal [facility] Comment on above: Performed By: #### C MP, LIPID, TSH #### [facility] [address] [address] [address] Bertram Paulino HbA1c (Bld) [Mass fraction] 6.0 % Normal 4.5-6.2 [facility] Comment on above: Performed By: #### C MP, LIPID, TSH #### [facility] [address] [place] [address] Dr. Bertram Paulino LIPID PROFILEon 01-12-2023 CHOL-HDL RATIO NORM SEE BELOW Normal [facility] Comment on above: Result Comment: 3.3 - 4.4 LOW RISK 4.4 - 7.1 AVERAGE RISK 7.1 - 11.0 MODERATE RISK >11.0 HIGH RISK Performed By: #### C MP, LIPID, TSH #### [facility] [address] [place] [address] Dr. Bertram Paulino Cholesterol [Mass/Vol] 222 mg/dL Critically high <=200 [facility] Comment on above: Performed By: #### C MP, LIPID, TSH #### [facility] [address] [address] [address] Bertram Paulino Cholesterol in HDL [Mass/Vol] 44 mg/dL Normal 40-60 [facility] Comment on above: Performed By: #### C MP, LIPID, TSH #### [facility] [address] [address] [address] Bertram Paulino Cholesterol in LDL [Mass/Vol] 132.4 mg/dL Normal [facility] Comment on above: Performed By: #### C MP, LIPID, TSH #### [facility] [address] [address] [address] Bertram Paulino Cholesterol.total/Ch olesterol in HDL [Mass ratio] 5.0 {ratio} Normal [facility] Comment on above: Performed By: #### C MP, LIPID, TSH #### [facility] [address] [address] [address] Bertram Paulino HDL NORMAL > or = 60 mg/dl - LO W CARDIOVASCULAR RISK <40 mg/dl - HIGH CARDIOVASCULAR RISK Normal [facility] Comment on above: Performed By: #### C MP, LIPID, TSH #### [facility] [address] [address] [address] Bertram Paulion LDL CALC NORMAL SEE BELOW Normal [facility] Comment on above: Result Comment: <100 mg/dl OPTIMAL 100 - 129 mg/dl NEAR OR ABOVE OPTIMAL 130 - 159 mg/dl BORDERLINE HIGH 160 - 189 mg/dl HIGH >190 mg/dl VERY HIGH Performed By: #### C MP, LIPID, TSH #### [facility] [address] [address] [address] Bertram Paulino Triglyceride [Mass/Vol] 228 mg/dL Critically high <=150 [facility] Comment on above: Performed By: #### C MP, LIPID, TSH #### [facility] [address] [address] [address] Bertram Paulino VLDL CALC 45.6 mg/dL Normal [facility] Comment on above: Performed By: #### C MP, LIPID, TSH #### [facility] [address] [address] [address] Bertram Paulino PROF 14(COMP METB)on 023 Albumin [Mass/Vol] 3.8 g/dL Normal 3.4-5.0 [facility] Comment on above: Performed By: #### C MP, LIPID, TSH #### [facility] [address] [address] [address] Bertram Paulino Albumin/Globulin [Mass ratio] 1.2 {ratio} Normal [facility] Comment on above: Performed By: #### C MP, LIPID, TSH #### [facility] [address] [address] [address] Bertram Paulino ALP [Catalytic activity/Vol] 66 U/L Normal 46-116 [facility] Comment on above: Performed By: #### C MP, LIPID, TSH #### [facility] [address] [address] [address] Bertram Paulino ALT [Catalytic activity/Vol] 45 U/L Normal 14-59 [facility] Comment on above: Performed By: #### C MP, LIPID, TSH #### [facility] [address] [address] [address] Bertram Paulino Anion gap [Moles/Vol] 12.8 mmol/L Normal [facility] Comment on above: Performed By: #### C MP, LIPID, TSH #### [facility] [address] [address] [address] Bertram Paulino AST [Catalytic activity/Vol] 29 U/L Normal 15-37 [facility] Comment on above: Performed By: #### C MP, LIPID, TSH #### [facility] [address] [address] [address] Bertram Paulino Bilirubin [Mass/Vol] 0.4 mg/dL Normal 0.2-1.0 [facility] Comment on above: Performed By: #### C MP, LIPID, TSH #### [facility] [address] [address] [address] Bertram Paulino Calcium [Mass/Vol] 9.1 mg/dL Normal 8.5-10.1 [facility] Comment on above: Performed By: #### C MP, LIPID, TSH #### [facility] [address] [address] [address] Bertram Paulino Chloride [Moles/Vol] 104 mmol/L Normal 98-107 [facility] Comment on above: Performed By: #### C MP, LIPID, TSH #### [facility] [address] [address] [address] Bertram Paulino CO2 [Moles/Vol] 27.2 mmol/L Normal 21.0-32.0 [facility] Comment on above: Performed By: #### C MP, LIPID, TSH #### [facility] [address] [address] [address] Bertram Paulino Creatinine [Mass/Vol] 0.65 mg/dL Normal 0.55-1.02 [facility] Comment on above: Performed By: #### C MP, LIPID, TSH #### [facility] [address] [place] [address] Dr. Bertram Paulino EGFR-AF INDIAN >60 Normal >=60 [facility] Comment on above: Performed By: #### C MP, LIPID, TSH #### [facility] [address] [place] [address] Dr. Bertram Paulino EGFR-NON AF INDIAN >60 Normal >=60 [facility] Comment on above: Performed By: #### C MP, LIPID, TSH #### [facility] [address] [place] [address] Dr. Bertram Paulino Globulin (S) [Mass/Vol] 3.1 g/dL Normal [facility] Comment on above: Performed By: #### C MP, LIPID, TSH #### [facility] [address] [place] [address] Dr. Bertram Paulino Glucose [Mass/Vol] 123 mg/dL Critically high 74-106 T [facility] Comment on above: Performed By: #### C MP, LIPID, TSH #### [facility] [address] [place] [address] Dr. Betrram Paulino Potassium [Moles/Vol] 4.0 mmol/L Normal 3.5-5.1 [facility] Comment on above: Performed By: #### C MP, LIPID, TSH #### [facility] [address] [place] [address] Dr. Bertram Paulino Protein [Mass/Vol] 6.9 g/dL Normal 6.4-8.2 [facility] Comment on above: Performed By: #### C MP, LIPID, TSH #### [facility] [address] [place] [address] Dr. Bertram Paulino Sodium [Moles/Vol] 140 mmol/L Normal 136-145 [facility] Comment on above: Performed By: #### C MP, LIPID, TSH #### [facility] [address] [place] [address] Dr. Bertram Paulino Urea nitrogen [Mass/Vol] 6.0 mg/dL Critically low 7.0-18.0 [facility] Comment on above: Performed By: #### C MP, LIPID, TSH #### [facility] [address] [place] [address] Dr. Bertram Paulino Urea nitrogen/Creatinine [Mass ratio] 9.2 mg/mg Normal [facility] Comment on above: Performed By: #### C MP, LIPID, TSH #### [facility] [address] [place] [address] Dr. Bertram Paulino SED RATE [facility] 2022 SED RATE 23 mm/hr Normal <=30 [facility] Comment on above: Performed By: #### C MP, LIPID, TSH #### [facility] [address] [place] [address] Dr. Bertram Paulino TSHon 01-12-2023 TSH 2.215 uIU/mL Normal 0.358-3.740 [facility] Comment on above: Performed By: #### C MP, LIPID, TSH #### [facility] [address] [place] [address] CHEST W CONon [...] by: PASTOR ESPANA Date: 2022-08-10 06:47 Normal [facility] XR CHEST 2 Von 07-11-2022 XR [...] by: VANESSA PRESLEY Date: 2022-07-11 07:11 Normal [facility] Progress Noteson 07-05-2022 Project Coordinator Rn Authentication Interface Message Text Documentation: Mode: Telephone Patient Patient Work Phone: Patient Cell Preferred phone: [phone] Consent: I confirmed patient understanding of the risks and benefits of telehealth visits and obtained consent to proceed with the telehealth visit. Location of Patient: Home of patient Post Covid Follow Up Telemedicine Visit Note: CC: f/u of [id number] condition Recall: Lu Cancino is a 51 [...] Also has neuropathy Patient still resides near [place], [place] PMH/PSH: Reviewed 07/05/22 Allergies: Per list, [...] Follow up in 3 months Lucía Calderon APRN-PUPPET MASTER Post Covid Nurse Practitioner Normal [facility] CBC AUTO DIFFon 07-01-2022 BASO # 0.0 103/ul Normal 0.0-0.1 [facility] Comment on above: Performed By: #### C MP, LIPID, TSH #### [facility] [address] [address] [address] Bertram Paulino Basophils/100 WBC (Bld) 0.2 % Normal 0.2-2.0 [facility] Comment on above: Performed By: #### C MP, LIPID, TSH #### [facility] [address] [address] [address] Bertram Paulino EO # 0.1 103/ul Normal 0.0-0.7 [facility] Comment on above: Performed By: #### C MP, LIPID, TSH #### [facility] [address] [address] [address] Bertram Paulino Eosinophils/100 WBC (Bld) 0.7 % Critically low 0.9-7.0 [facility] Comment on above: Performed By: #### C MP, LIPID, TSH #### [facility] [address] [place] [address] Dr. Bertram Paulino Erythrocyte distribution width (RBC) [Ratio] 12.9 % Normal 11.0-15.0 [facility] Comment on above: Performed By: #### C MP, LIPID, TSH #### [facility] [address] [place] [address] Dr. Bertram Paulino Hematocrit (Bld) [Volume fraction] 41.5 % Normal 36.0-48.0 [facility] Comment on above: Performed By: #### C MP, LIPID, TSH #### [facility] [address] [place] [address] Dr. Bertram Paulino Hemoglobin (Bld) [Mass/Vol] 14.1 g/dL Normal 12.0-16.0 [facility] Comment on above: Performed By: #### C MP, LIPID, TSH #### [facility] [address] [place] [address] Dr. Bertram Paulino IG # 0.03 10e3/ul Normal 0.00-0.03 [facility] Comment on above: Performed By: #### C MP, LIPID, TSH #### [facility] [address] [place] [address] Dr. Bertram Paulino IG % 0.3 % Normal 0.0-0.5 [facility] Comment on above: Performed By: #### C MP, LIPID, TSH #### [facility] [address] [place] [address] Dr. Bertram Paulino LYMPH # 2.4 103/ul Normal 1.2-3.8 [facility] Comment on above: Performed By: #### C MP, LIPID, TSH #### [facility] [address] [place] [address] Dr. Bertram Paulino Lymphocytes/100 WBC (Bld) 27.6 % Normal 20.5-60.0 [facility] Comment on above: Performed By: #### C MP, LIPID, TSH #### [facility] [address] [place] [address] Dr. Bertram Paulino MANUAL DIFF REQ NO Normal [facility] Comment on above: Performed By: #### C MP, LIPID, TSH #### [facility] [address] [place] [address] Dr. Bertram Paulino MCH (RBC) [Entitic mass] 29.7 pg Normal 26.7-34.0 [facility] Comment on above: Performed By: #### C MP, LIPID, TSH #### [facility] [address] [place] [address] Dr. Bertram Paulino MCHC (RBC) [Mass/Vol] 34.0 g/dL Normal 29.9-35.2 [facility] Comment on above: Performed By: #### C MP, LIPID, TSH #### [facility] [address] [place] [address] Dr. Bertram Paulino MCV (RBC) [Entitic vol] 87.6 fL Normal 81.0-99.0 [facility] Comment on above: Performed By: #### C MP, LIPID, TSH #### [facility] [address] [place] [address] Dr. Bertram Paulino MONO # 0.6 103/ul Normal 0.3-0.8 [facility] Comment on above: Performed By: #### C MP, LIPID, TSH #### [facility] [address] [place] [address] Dr. Bertram Paulino Monocytes/100 WBC (Bld) 6.8 % Normal 1.7-12.0 [facility] Comment on above: Performed By: #### C MP, LIPID, TSH #### [facility] [address] [place] [address] Dr. Bertram Paulino NEUT # 5.6 103/ul Normal 1.4-6.5 [facility] Comment on above: Performed By: #### C MP, LIPID, TSH #### [facility] [address] [place] [address] Dr. Bertram Paulino Neutrophils/100 WBC (Bld) 64.4 % Normal 43.0-75.0 [facility] Comment on above: Performed By: #### C MP, LIPID, TSH #### [facility] [address] [address] [address] Bertram Paulino Platelet mean volume (Bld) [Entitic vol] 10.0 fL Normal 9.5-13.5 [facility] Comment on above: Performed By: #### C MP, LIPID, TSH #### [facility] [address] [address] [address] Bertram Paulino PLT 326 103/ul Normal 150-450 [facility] Comment on above: Performed By: #### C MP, LIPID, TSH #### [facility] [address] [address] [address] Bertram Paulino RBC 4.74 106/ul Normal 4.20-5.40 [facility] Comment on above: Performed By: #### C MP, LIPID, TSH #### [facility] [address] [place] [address] Dr. Bertram Paulino WBC 8.7 103/ul Normal 4.0-11.0 [facility] Comment on above: Performed By: #### C MP, LIPID, TSH #### [facility] [address] [place] [address] Dr. Bertram Paulino ER URINE PROFILEon 2 Bilirubin Ql (U) Negative Normal NEGATIVE [facility] Comment on above: Performed By: #### C MP, LIPID, TSH #### [facility] [address] [place] [address] Dr. Bertram Paulino Clarity (U) CLEAR Normal CLEAR [facility] Comment on above: Performed By: #### C MP, LIPID, TSH #### [facility] [address] [place] [address] Dr. Bertram Paulino Color (U) LT. YELLOW Normal YELLOW [facility] Comment on above: Performed By: #### C MP, LIPID, TSH #### [facility] [address] [place] [address] Dr. Bertram Paulino ERUAHD A micrscopic examination will be performed if indicated. Normal [facility] Comment on above: Performed By: #### C MP, LIPID, TSH #### [facility] [address] [address] [address] Bertram Paulino Glucose Ql (U) Negative Normal NEGATIVE [facility] Comment on above: Performed By: #### C MP, LIPID, TSH #### [facility] [address] [address] [address] Bertram Paulino Hemoglobin Ql (U) Negative Normal NEGATIVE [facility] Comment on above: Performed By: #### C MP, LIPID, TSH #### [facility] [address] [address] [address] Bertram Paulino Ketones Ql (U) TRACE Abnormal NEGATIVE [facility] Comment on above: Performed By: #### C MP, LIPID, TSH #### [facility] [address] [place] [address] Dr. Bertram Paulino LEUKOCYTES Negative Normal NEGATIVE [facility] Comment on above: Performed By: #### C MP, LIPID, TSH #### [facility] [address] [address] [address] Bertram Paulino Nitrite Ql (U) Negative Normal NEGATIVE [facility] Comment on above: Performed By: #### C MP, LIPID, TSH #### [facility] [address] [place] [address] Dr. Bertram Paulino pH (U) 6.0 [pH] Normal 5-9 [facility] Comment on above: Performed By: #### C MP, LIPID, TSH #### [facility] [address] [address] [address] Bertram Paulino SPEC GRAVITY <=1.005 Abnormal 1.005-<=1.025 [facility] Comment on above: Performed By: #### C MP, LIPID, TSH #### [facility] [address] [address] [address] Bertram Paulino UA PROTEIN Negative Normal NEGATIVE/ TRACE [facility] Comment on above: Performed By: #### C MP, LIPID, TSH #### [facility] [address] [place] [address] Dr. Bertram Paulino UR MICRO IND NOT INDICATED Normal [facility] Comment on above: Performed By: #### C MP, LIPID, TSH #### [facility] [address] [address] [address] Bertram Paulino Urobilinogen Qn (U) 0.2 {Yazmin'U}/dL Normal 0.2 - 1. 0 [facility] Comment on above: Performed By: #### C MP, LIPID, TSH #### [facility] [address] [address] [address] Bertram Paulino LACTATE/LACTIC ACIDon 2021 Lactate [Moles/Vol] 1.2 mmol/L Normal 0.4-1.9 [facility] Comment on above: Performed By: #### C MP, LIPID, TSH #### [facility] [address] [place] [address] Dr. Bertram Paulino MONOon 07-01-2022 Monocytes (Bld) [#/Vol] Negative Normal NEGATIVE [facility] Comment on above: Performed By: #### M VENUS ####[facility] [id number] [address]Dr[address] Bertram Paulino PROF 14(COMP METB)on 022 Albumin [Mass/Vol] 4.1 g/dL Normal 3.4-5.0 [facility] Comment on above: Performed By: #### C MP, LIPID, TSH #### [facility] [address] [place] [address] Dr. Bertram Paulino Albumin/Globulin [Mass ratio] 1.1 {ratio} Normal [facility] Comment on above: Performed By: #### C MP, LIPID, TSH #### [facility] [address] [address] [address] Bertram Paulino ALP [Catalytic activity/Vol] 57 U/L Normal 46-116 [facility] Comment on above: Performed By: #### C MP, LIPID, TSH #### [facility] [address] [address] [address] Bertram Paulino ALT [Catalytic activity/Vol] 38 U/L Normal 14-59 [facility] Comment on above: Performed By: #### C MP, LIPID, TSH #### [facility] [address] [address] [address] Bertram Paulino Anion gap [Moles/Vol] 13.9 mmol/L Normal [facility] Comment on above: Performed By: #### C MP, LIPID, TSH #### [facility] [address] [address] [address] Bertram Paulino AST [Catalytic activity/Vol] 22 U/L Normal 15-37 [facility] Comment on above: Performed By: #### C MP, LIPID, TSH #### [facility] [address] [address] [address] Bertram Paulino Bilirubin [Mass/Vol] 0.7 mg/dL Normal 0.2-1.0 [facility] Comment on above: Performed By: #### C MP, LIPID, TSH #### [facility] [address] [place] [address] Dr. Bertram Paulino Calcium [Mass/Vol] 9.6 mg/dL Normal 8.5-10.1 [facility] Comment on above: Performed By: #### C MP, LIPID, TSH #### [facility] [address] [address] [address] Bertram Paulino Chloride [Moles/Vol] 98 mmol/L Normal 98-107 [facility] Comment on above: Performed By: #### C MP, LIPID, TSH #### [facility] [address] [address] [address] Bertram Paulino CO2 [Moles/Vol] 27.4 mmol/L Normal 21.0-32.0 [facility] Comment on above: Performed By: #### C MP, LIPID, TSH #### [facility] [address] [address] [address] Bertram Paulino Creatinine [Mass/Vol] 0.85 mg/dL Normal 0.55-1.02 [facility] Comment on above: Performed By: #### C MP, LIPID, TSH #### [facility] [address] [address] [address] Bertram Paulino EGFR-AF INDIAN >60 Normal >=60 [facility] Comment on above: Performed By: #### C MP, LIPID, TSH #### [facility] [address] [address] [address] Bertram Paulino EGFR-NON AF INDIAN >60 Normal >=60 [facility] Comment on above: Performed By: #### C MP, LIPID, TSH #### [facility] [address] [address] [address] Bertram Paulino Globulin (S) [Mass/Vol] 3.6 g/dL Normal [facility] Comment on above: Performed By: #### C MP, LIPID, TSH #### [facility] [address] [address] [address] Bertram Paulino Glucose [Mass/Vol] 99 mg/dL Normal 74-106 [facility] Comment on above: Performed By: #### C MP, LIPID, TSH #### [facility] [address] [address] [address] Bertram Paulino Potassium [Moles/Vol] 3.3 mmol/L Critically low 3.5-5.1 [facility] Comment on above: Performed By: #### C MP, LIPID, TSH #### [facility] [address] [address] [address] Bertram Paulino Protein [Mass/Vol] 7.7 g/dL Normal 6.4-8.2 [facility] Comment on above: Performed By: #### C MP, LIPID, TSH #### [facility] [address] [address] [address] Bertram Paulino Sodium [Moles/Vol] 136 mmol/L Normal 136-145 [facility] Comment on above: Performed By: #### C MP, LIPID, TSH #### [facility] [address] [address] [address] Bertram Paulino Urea nitrogen [Mass/Vol] 13.0 mg/dL Normal 7.0-18.0 [facility] Comment on above: Performed By: #### C MP, LIPID, TSH #### [facility] [address] [address] [address] Bertram Paulino Urea nitrogen/Creatinine [Mass ratio] 15.3 mg/mg Normal [facility] Comment on above: Performed By: #### C MP, LIPID, TSH #### [facility] [address] [address] [address] Bertram Paulino TROPONIN, HIGH SENSITIVITYon 07-01-2022 HSTROP 6.5 pg/mL Normal 4.0-51.3 [facility] Comment on above: Result Comment: CUT- OFF POINTS HAVE BEEN ESTABLISHED BASED ON THE FOURTH UNIVERSAL DEFINITIONS OF MYOCARDIAL INFARCTION. THE UPPER REFERENCE LIMIT (URL) OF TROPONIN, DEFINED THE 99TH PERCENTILE OF cTnI DISTRIBUTION IN A REFERENCE POPULATION, HAS BEEN CONFIRMED THE DECISION THRESHOLD FOR [place] DIAGNOSIS. Performed By: #### T SH, CMP, HSTROPN ####[facility] [id number] [address]Dr. Bertram Paulino TSHon 07-01-2022 TSH 2.596 uIU/mL Normal 0.358-3.740 [facility] Comment on above: Performed By: #### T SH, CMP, HSTROPN ####[facility] [id number] [address]Dr. Bertram Paulino STOOL CULTUREon 06-10-2022 Campylobacter Culture Final report Normal [facility] Comment on above: Performed By: #### C MP, LIPID, TSH #### [facility] [address] [address] [address] Bertram Paulino E coli Shiga Toxin EIA Negative Normal Negative [facility] Comment on above: Performed By: #### C MP, LIPID, TSH #### [facility] [address] [address] [address] Bertram Paulino Result 1 Comment Normal [facility] Comment on above: Result Comment: No S almonella or Shigella recovered. Performed By: #### C MP, LIPID, TSH #### [facility] [address] [address] [address] Bertram Paulino Result Comment: No C ampylobacter species isolated. Salmonella/Shigella Screen Final report Normal [facility] Comment on above: Performed By: #### C MP, LIPID, TSH #### [facility] [address] [address] [address] Bertram Paulino OVA AND PARASITE EXAMINATION on 06-09-2022 Ova + Parasite Exam Final report Normal [facility] Comment on above: Result Comment: Thes e results were obtained using wet preparation(s) and trichrome stained smear. This test does not include testing for Cryptosporidium parvum, Cyclospora, or Microsporidia. Performed By: #### O VAPE ####[facility] [id number] [address]Dr. Bertram Paulino Result 1 Comment Normal [facility] Comment on above: Result Comment: No o va, cysts, or parasites seen. . One negative specimen does not rule out the possibility of a parasitic infection. Performed By: #### O VAPE ####[facility] [id number] [address]Dr. Bertram Paulino CLOSTRIDIUM DIFFICILE PCRon 06-07-2022 C difficile Toxin Gene KIRT Negative Normal Negative [facility] Comment on above: Performed By: #### C DIFNAA #### [facility] [address] [place] [address] Dr. Bertram Paulino OCC BLD IMMUNO SCREENon 05-14 OCCULT BLOOD Negative Normal NEGATIVE [facility] Comment on above: Performed By: #### C MP, LIPID, TSH #### [facility] [address] [address] [address] Bertram Paluino CARDIAC ERASMO 3-6on 2 CK [Catalytic activity/Vol] 109 U/L Normal 26-192 [facility] Comment on above: Performed By: #### C MP, LIPID, TSH #### [facility] [address] [place] [address] Dr. Bertram Paulino CK.MB [Mass/Vol] 1.63 ng/mL Normal <=3.60 [facility] Comment on above: Performed By: #### C MP, LIPID, TSH #### [facility] [address] [place] [address] Dr. Bertram Paulino HSTROP 6.0 pg/mL Normal 4.0-51.3 [facility] Comment on above: Result Comment: CUT- OFF POINTS HAVE BEEN ESTABLISHED BASED ON THE FOURTH UNIVERSAL DEFINITIONS OF MYOCARDIAL INFARCTION. THE UPPER REFERENCE LIMIT (URL) OF TROPONIN, DEFINED THE 99TH PERCENTILE OF cTnI DISTRIBUTION IN A REFERENCE POPULATION, HAS BEEN CONFIRMED THE DECISION THRESHOLD FOR [place] DIAGNOSIS. Performed By: #### C MP, LIPID, TSH #### [facility] [address] [address] [address] Bertram Paulino CK [Catalytic activity/Vol] 101 U/L Normal 26-192 [facility] Comment on above: Performed By: #### C MREP ####[facility] [id number] [address]Dr. Bertram Paulino CK.MB [Mass/Vol] 1.60 ng/mL Normal <=3.60 [facility] Comment on above: Performed By: #### C MREP ####[facility] [id number] [address]Dr. Bertram Paulino HSTROP 5.8 pg/mL Normal 4.0-51.3 [facility] Comment on above: Result Comment: CUT- OFF POINTS HAVE BEEN ESTABLISHED BASED ON THE FOURTH UNIVERSAL DEFINITIONS OF MYOCARDIAL INFARCTION. THE UPPER REFERENCE LIMIT (URL) OF TROPONIN, DEFINED THE 99TH PERCENTILE OF cTnI DISTRIBUTION IN A REFERENCE POPULATION, HAS BEEN CONFIRMED THE DECISION THRESHOLD FOR [place] DIAGNOSIS. Performed By: #### C MREP ####[facility] [id number] [address]Dr. Bertram Paulino CBC AUTO DIFFon 05-15-2022 BASO # 0.1 103/ul Normal 0.0-0.1 [facility] Comment on above: Performed By: #### C MP, LIPID, TSH #### [facility] [address] [address] [address] Bertram Paulino Basophils/100 WBC (Bld) 0.8 % Normal 0.2-2.0 [facility] Comment on above: Performed By: #### C MP, LIPID, TSH #### [facility] [address] [address] [address] Bertram Paulino EO # 0.2 103/ul Normal 0.0-0.7 [facility] Comment on above: Performed By: #### C MP, LIPID, TSH #### [facility] [address] [place] [address] Dr. Bertram Paulino Eosinophils/100 WBC (Bld) 2.9 % Normal 0.9-7.0 [facility] Comment on above: Performed By: #### C MP, LIPID, TSH #### [facility] [address] [place] [address] Dr. Bertram Paulino Erythrocyte distribution width (RBC) [Ratio] 13.5 % Normal 11.0-15.0 [facility] Comment on above: Performed By: #### C MP, LIPID, TSH #### [facility] [address] [place] [address] Dr. Bertram Paulino Hematocrit (Bld) [Volume fraction] 34.4 % Critically low 36.0-48.0 [facility] Comment on above: Performed By: #### C MP, LIPID, TSH #### [facility] [address] [place] [address] Dr. Bertram Paulino Hemoglobin (Bld) [Mass/Vol] 11.8 g/dL Critically low 12.0-16.0 [facility] Comment on above: Performed By: #### C MP, LIPID, TSH #### [facility] [address] [place] [address] Dr. Bertram Paulion IG # 0.03 10e3/ul Normal 0.00-0.03 [facility] Comment on above: Performed By: #### C MP, LIPID, TSH #### [facility] [address] [place] [address] Dr. Bertram Paulino IG % 0.5 % Normal 0.0-0.5 [facility] Comment on above: Performed By: #### C MP, LIPID, TSH #### [facility] [address] [place] [address] Dr. Bertram Paulino LYMPH # 2.7 103/ul Normal 1.2-3.8 [facility] Comment on above: Performed By: #### C MP, LIPID, TSH #### [facility] [address] [place] [address] Dr. Bertram Paulino Lymphocytes/100 WBC (Bld) 41.3 % Normal 20.5-60.0 [facility] Comment on above: Performed By: #### C MP, LIPID, TSH #### [facility] [address] [place] [address] Dr. Bertram Paulino MANUAL DIFF REQ NO Normal [facility] Comment on above: Performed By: #### C MP, LIPID, TSH #### [facility] [address] [place] [address] Dr. Bertram Paulino MCH (RBC) [Entitic mass] 29.9 pg Normal 26.7-34.0 [facility] Comment on above: Performed By: #### C MP, LIPID, TSH #### [facility] [address] [place] [address] Dr. Bertram Paulino MCHC (RBC) [Mass/Vol] 34.3 g/dL Normal 29.9-35.2 [facility] Comment on above: Performed By: #### C MP, LIPID, TSH #### [facility] [address] [place] [address] Dr. Bertram Paulino MCV (RBC) [Entitic vol] 87.3 fL Normal 81.0-99.0 [facility] Comment on above: Performed By: #### C MP, LIPID, TSH #### [facility] [address] [place] [address] Dr. Bertram Paulino MONO # 0.6 103/ul Normal 0.3-0.8 [facility] Comment on above: Performed By: #### C MP, LIPID, TSH #### [facility] [address] [place] [address] Dr. Bertram Paulino Monocytes/100 WBC (Bld) 9.6 % Normal 1.7-12.0 [facility] Comment on above: Performed By: #### C MP, LIPID, TSH #### [facility] [address] [place] [address] Dr. Bertram Paulino NEUT # 2.9 103/ul Normal 1.4-6.5 [facility] Comment on above: Performed By: #### C MP, LIPID, TSH #### [facility] [address] [place] [address] Dr. Bertram Paulino Neutrophils/100 WBC (Bld) 44.9 % Normal 43.0-75.0 [facility] Comment on above: Performed By: #### C MP, LIPID, TSH #### [facility] [address] [address] [address] Bertram Paulino Platelet mean volume (Bld) [Entitic vol] 11.0 fL Normal 9.5-13.5 [facility] Comment on above: Performed By: #### C MP, LIPID, TSH #### [facility] [address] [address] [address] Bertram Paulino PLT 281 103/ul Normal 150-450 [facility] Comment on above: Performed By: #### C MP, LIPID, TSH #### [facility] [address] [address] [address] Bertram Paulino RBC 3.94 106/ul Critically low 4.20-5.40 [facility] Comment on above: Performed By: #### C MP, LIPID, TSH #### [facility] [address] [address] [address] Bertram Paulino WBC 6.5 103/ul Normal 4.0-11.0 [facility] Comment on above: Performed By: #### C MP, LIPID, TSH #### [facility] [address] [address] [address] Bertram Paulino CTA CHEST WO W [...] MELANI BETANCOURT Date: 2022-05-14 23:01 Normal [facility] Covid-19 PCR (CVDTB)on SARS-CoV-2 (COVID-19) RNA KIRT+probe Ql (Unsp spec) Not detected Normal NOT DETECTED [facility] Comment on above: Result Comment: When diagnostic [...] for this test is supported by the [employer] and Human Service's declaration that [...] By: #### C MP, LIPID, TSH #### [facility] [address] [place] [address] [id number] [address] Bertram Paulino PROF 14(COMP METB)on 022 Albumin [Mass/Vol] 3.3 g/dL Critically low 3.4-5.0 [facility] Comment on above: Performed By: #### C MP, LIPID, TSH #### [facility] [address] [address] [address] Bertram Paulino Albumin/Globulin [Mass ratio] 1.1 {ratio} Normal [facility] Comment on above: Performed By: #### C MP, LIPID, TSH #### [facility] [address] [address] [address] Bertram Paulino ALP [Catalytic activity/Vol] 47 U/L Normal 46-116 [facility] Comment on above: Performed By: #### C MP, LIPID, TSH #### [facility] [address] [place] [address] Dr. Bertram Paulino ALT [Catalytic activity/Vol] 42 U/L Normal 14-59 [facility] Comment on above: Performed By: #### C MP, LIPID, TSH #### [facility] [address] [place] [address] Dr. Bertram Paulino Anion gap [Moles/Vol] 14.3 mmol/L Normal [facility] Comment on above: Performed By: #### C MP, LIPID, TSH #### [facility] [address] [place] [address] Dr. Bertram Paulino AST [Catalytic activity/Vol] 20 U/L Normal 15-37 [facility] Comment on above: Performed By: #### C MP, LIPID, TSH #### [facility] [address] [place] [address] Dr. Bertram Paulino Bilirubin [Mass/Vol] 0.3 mg/dL Normal 0.2-1.0 [facility] Comment on above: Performed By: #### C MP, LIPID, TSH #### [facility] [address] [place] [address] Dr. Bertram Paulion Calcium [Mass/Vol] 9.0 mg/dL Normal 8.5-10.1 [facility] Comment on above: Performed By: #### C MP, LIPID, TSH #### [facility] [address] [place] [address] Dr. Bertram Paulino Chloride [Moles/Vol] 105 mmol/L Normal 98-107 [facility] Comment on above: Performed By: #### C MP, LIPID, TSH #### [facility] [address] [address] [address] Bertram Paulino CO2 [Moles/Vol] 26.5 mmol/L Normal 21.0-32.0 [facility] Comment on above: Performed By: #### C MP, LIPID, TSH #### [facility] [address] [address] [address] Bertram Paulino Creatinine [Mass/Vol] 0.77 mg/dL Normal 0.55-1.02 [facility] Comment on above: Performed By: #### C MP, LIPID, TSH #### [facility] [address] [address] [address] Bertram Paulino EGFR-AF INDIAN >60 Normal >=60 [facility] Comment on above: Performed By: #### C MP, LIPID, TSH #### [facility] [address] [address] [address] Bertram Paulino EGFR-NON AF INDIAN >60 Normal >=60 [facility] Comment on above: Performed By: #### C MP, LIPID, TSH #### [facility] [address] [address] [address] Bertram Paulino Globulin (S) [Mass/Vol] 3.1 g/dL Normal [facility] Comment on above: Performed By: #### C MP, LIPID, TSH #### [facility] [address] [address] [address] Bertram Paulino Glucose [Mass/Vol] 99 mg/dL Normal 74-106 [facility] Comment on above: Performed By: #### C MP, LIPID, TSH #### [facility] [address] [address] [address] Bertram Paulino Potassium [Moles/Vol] 3.8 mmol/L Normal 3.5-5.1 [facility] Comment on above: Performed By: #### C MP, LIPID, TSH #### [facility] [address] [address] [address] Bertram Paulino Protein [Mass/Vol] 6.4 g/dL Normal 6.4-8.2 [facility] Comment on above: Performed By: #### C MP, LIPID, TSH #### [facility] [address] [address] [address] Bertram Paulino Sodium [Moles/Vol] 142 mmol/L Normal 136-145 [facility] Comment on above: Performed By: #### C MP, LIPID, TSH #### [facility] [address] [place] [address] Dr. Bertram Paulino Urea nitrogen [Mass/Vol] 8.0 mg/dL Normal 7.0-18.0 [facility] Comment on above: Performed By: #### C MP, LIPID, TSH #### [facility] [address] [place] [address] Dr. Bertram Paulino Urea nitrogen/Creatinine [Mass ratio] 10.4 mg/mg Normal [facility] Comment on above: Performed By: #### C MP, LIPID, TSH #### [facility] [address] [place] [address] Dr. Bertram Paulino UA (CLEAN/CATCH) CONTOUR STITCHER/MICRO I F IND.on 05-15-2022 Bilirubin Ql (U) Negative Normal NEGATIVE [facility] Comment on above: Performed By: #### C MP, LIPID, TSH #### [facility] [address] [place] [address] Dr. Bertram Paulino Clarity (U) SL CLOUDY Abnormal CLEAR [facility] Comment on above: Performed By: #### C MP, LIPID, TSH #### [facility] [address] [place] [address] Dr. Bertram Paulino Color (U) LT. YELLOW Normal YELLOW [facility] Comment on above: Performed By: #### C MP, LIPID, TSH #### [facility] [address] [place] [address] Dr. Bertram Paulino Glucose Ql (U) Negative Normal NEGATIVE [facility] Comment on above: Performed By: #### C MP, LIPID, TSH #### [facility] [address] [place] [address] Dr. Bertram Paulino Hemoglobin Ql (U) Negative Normal NEGATIVE [facility] Comment on above: Performed By: #### C MP, LIPID, TSH #### [facility] [address] [address] [address] Bertram Paulino Ketones Ql (U) Negative Normal NEGATIVE [facility] Comment on above: Performed By: #### C MP, LIPID, TSH #### [facility] [address] [place] [address] Dr. Bertram Paulino LEUKOCYTES Negative Normal NEGATIVE [facility] Comment on above: Performed By: #### C MP, LIPID, TSH #### [facility] [address] [address] [address] Bertram Paulino Nitrite Ql (U) Negative Normal NEGATIVE [facility] Comment on above: Performed By: #### C MP, LIPID, TSH #### [facility] [address] [place] [address] Dr. Bertram Paulino pH (U) 5.5 [pH] Normal 5-9 [facility] Comment on above: Performed By: #### C MP, LIPID, TSH #### [facility] [address] [place] [address] Dr. Bertram Paulino SPEC GRAVITY 1.010 Normal 1.005-<=1.025 [facility] Comment on above: Performed By: #### C MP, LIPID, TSH #### [facility] [address] [place] [address] Dr. Bertram Paulino UA PROTEIN Negative Normal NEGATIVE/ TRACE [facility] Comment on above: Performed By: #### C MP, LIPID, TSH #### [facility] [address] [place] [address] Dr. Bertram Paulino UR MICRO IND NOT INDICATED Normal [facility] Comment on above: Performed By: #### C MP, LIPID, TSH #### [facility] [address] [place] [address] Dr. Bertram Paulino Urobilinogen Qn (U) 0.2 {Yazmin'U}/dL Normal 0.2 - 1. 0 [facility] Comment on above: Performed By: #### C MP, LIPID, TSH #### [facility] [address] [place] [address] Dr. Bertram Paulino CARDIAC ERASMO ADMITon 022 CK [Catalytic activity/Vol] 117 U/L Normal 26-192 [facility] Comment on above: Performed By: #### C MP, LIPID, TSH #### [facility] [address] [place] [address] Dr. Bertram Paulino CK.MB [Mass/Vol] 2.08 ng/mL Normal <=3.60 [facility] Comment on above: Performed By: #### C MP, LIPID, TSH #### [facility] [address] [address] [address] Bertram Paulino HSTROP 4.7 pg/mL Normal 4.0-51.3 [facility] Comment on above: Result Comment: CUT- OFF POINTS HAVE BEEN ESTABLISHED BASED ON THE FOURTH UNIVERSAL DEFINITIONS OF MYOCARDIAL INFARCTION. THE UPPER REFERENCE LIMIT (URL) OF TROPONIN, DEFINED THE 99TH PERCENTILE OF cTnI DISTRIBUTION IN A REFERENCE POPULATION, HAS BEEN CONFIRMED THE DECISION THRESHOLD FOR [place] DIAGNOSIS. Performed By: #### C MP, LIPID, TSH #### [facility] [address] [place] [address] Dr. Bertram Paulino JEAN-PIERRE 28 ng/mL Normal 9-82 [facility] Comment on above: Performed By: #### C MP, LIPID, TSH #### [facility] [address] [place] [address] Dr. Bertram Paulino CBC AUTO DIFFon 05-14-2022 BASO # 0.0 103/ul Normal 0.0-0.1 [facility] Comment on above: Performed By: #### C MP, LIPID, TSH #### [facility] [address] [place] [address] Dr. Bertram Paulino Basophils/100 WBC (Bld) 0.5 % Normal 0.2-2.0 [facility] Comment on above: Performed By: #### C MP, LIPID, TSH #### [facility] [address] [place] [address] Dr. Bertram Paulino EO # 0.1 103/ul Normal 0.0-0.7 [facility] Comment on above: Performed By: #### C MP, LIPID, TSH #### [facility] [address] [place], [place] [id number] Dr. Bertram Paulino Eosinophils/100 WBC (Bld) 1.6 % Normal 0.9-7.0 [facility] Comment on above: Performed By: #### C MP, LIPID, TSH #### [facility] [address] [place] [address] Dr. Bertram Paulino Erythrocyte distribution width (RBC) [Ratio] 13.4 % Normal 11.0-15.0 [facility] Comment on above: Performed By: #### C MP, LIPID, TSH #### [facility] [address] [place] [address] Dr. Bertram Paulino Hematocrit (Bld) [Volume fraction] 37.4 % Normal 36.0-48.0 [facility] Comment on above: Performed By: #### C MP, LIPID, TSH #### [facility] [address] [place] [address] Dr. Bertram Paulino Hemoglobin (Bld) [Mass/Vol] 12.3 g/dL Normal 12.0-16.0 [facility] Comment on above: Performed By: #### C MP, LIPID, TSH #### [facility] [address] [place] [address] Dr. Bertram Paulino IG # 0.02 10e3/ul Normal 0.00-0.03 [facility] Comment on above: Performed By: #### C MP, LIPID, TSH #### [facility] [address] [place] [address] Dr. Bertram Paulino IG % 0.3 % Normal 0.0-0.5 [facility] Comment on above: Performed By: #### C MP, LIPID, TSH #### [facility] [address] [place] [address] Dr. Bertram Paulino LYMPH # 2.6 103/ul Normal 1.2-3.8 [facility] Comment on above: Performed By: #### C MP, LIPID, TSH #### [facility] [address] [place] [address] Dr. Bertram Paulino Lymphocytes/100 WBC (Bld) 34.5 % Normal 20.5-60.0 [facility] Comment on above: Performed By: #### C MP, LIPID, TSH #### [facility] [address] [place] [address] Dr. Bertram Paulino MANUAL DIFF REQ NO Normal [facility] Comment on above: Performed By: #### C MP, LIPID, TSH #### [facility] [address] [place] [address] Dr. Bertram Paulino MCH (RBC) [Entitic mass] 29.4 pg Normal 26.7-34.0 [facility] Comment on above: Performed By: #### C MP, LIPID, TSH #### [facility] [address] [place] [address] Dr. Bertram Paulino MCHC (RBC) [Mass/Vol] 32.9 g/dL Normal 29.9-35.2 [facility] Comment on above: Performed By: #### C MP, LIPID, TSH #### [facility] [address] [place] [address] Dr. Bertram Paulino MCV (RBC) [Entitic vol] 89.3 fL Normal 81.0-99.0 [facility] Comment on above: Performed By: #### C MP, LIPID, TSH #### [facility] [address] [place] [address] Dr. Bertram Paulino MONO # 0.5 103/ul Normal 0.3-0.8 [facility] Comment on above: Performed By: #### C MP, LIPID, TSH #### [facility] [address] [place] [address] Dr. Bertram Paulino Monocytes/100 WBC (Bld) 6.3 % Normal 1.7-12.0 [facility] Comment on above: Performed By: #### C MP, LIPID, TSH #### [facility] [address] [place] [address] Dr. Bertram Paulino NEUT # 4.3 103/ul Normal 1.4-6.5 [facility] Comment on above: Performed By: #### C MP, LIPID, TSH #### [facility] [address] [place] [address] Dr. Bertram Paulino Neutrophils/100 WBC (Bld) 56.8 % Normal 43.0-75.0 [facility] Comment on above: Performed By: #### C MP, LIPID, TSH #### [facility] [address] [place] [address] Dr. Bertram Paulino Platelet mean volume (Bld) [Entitic vol] 10.7 fL Normal 9.5-13.5 [facility] Comment on above: Performed By: #### C MP, LIPID, TSH #### [facility] [address] [place] [address] Dr. Bertram Paulino PLT 295 103/ul Normal 150-450 [facility] Comment on above: Performed By: #### C MP, LIPID, TSH #### [facility] [address] [place] [address] Dr. Bertram Paulino RBC 4.19 106/ul Critically low 4.20-5.40 [facility] Comment on above: Performed By: #### C MP, LIPID, TSH #### [facility] [address] [place] [address] Dr. Bertram Paulino WBC 7.6 103/ul Normal 4.0-11.0 [facility] Comment on above: Performed By: #### C MP, LIPID, TSH #### [facility] [address] [place] [address] Dr. Bertram Paulino D-DIMERon 05-14-2022 D-DIMER 0.65 mg/L FEU Critically high <=0.59 [facility] Comment on above: Performed By: #### D DIM #### [facility] [address] [place] [address] Dr. Bertram Paulino D-DIMER COMMENTS SEE BELOW Normal [facility] Comment on above: Result Comment: Incr eases [...] hospitalization. Performed By: #### D DIM #### [facility] [address] [place] [address] Dr. Bertram Paulino PROF CHEM 8 (BAS METB)on Anion gap [Moles/Vol] 10.7 mmol/L Normal [facility] Comment on above: Performed By: #### C MP, LIPID, TSH #### [facility] [address] [place] [address] Dr. Bertram Paulino Calcium [Mass/Vol] 9.6 mg/dL Normal 8.5-10.1 [facility] Comment on above: Performed By: #### C MP, LIPID, TSH #### [facility] [address] [place] [address] Dr. Bertram Paulino Chloride [Moles/Vol] 102 mmol/L Normal 98-107 [facility] Comment on above: Performed By: #### C MP, LIPID, TSH #### [facility] [address] [place] [address] Dr. Bertram Paulino CO2 [Moles/Vol] 28.8 mmol/L Normal 21.0-32.0 [facility] Comment on above: Performed By: #### C MP, LIPID, TSH #### [facility] [address] [place] [address] Dr. Bertram Paulino Creatinine [Mass/Vol] 0.83 mg/dL Normal 0.55-1.02 [facility] Comment on above: Performed By: #### C MP, LIPID, TSH #### [facility] [address] [place] [address] Dr. Bertram Paulino EGFR-AF INDIAN >60 Normal >=60 [facility] Comment on above: Performed By: #### C MP, LIPID, TSH #### [facility] [address] [place] [address] Dr. Bertram Paulino EGFR-NON AF INDIAN >60 Normal >=60 [facility] Comment on above: Performed By: #### C MP, LIPID, TSH #### [facility] [address] [place] [address] Dr. Bertram Paulino Glucose [Mass/Vol] 128 mg/dL Critically high 74-106 [facility] Comment on above: Performed By: #### C MP, LIPID, TSH #### [facility] [address] [address] [address] Bertram Paulino Potassium [Moles/Vol] 3.5 mmol/L Normal 3.5-5.1 [facility] Comment on above: Performed By: #### C MP, LIPID, TSH #### [facility] [address] [address] [address] Bertram Paulino Sodium [Moles/Vol] 138 mmol/L Normal 136-145 [facility] Comment on above: Performed By: #### C MP, LIPID, TSH #### [facility] [address] [address] [address] Bertram Paulino Urea nitrogen [Mass/Vol] 8.0 mg/dL Normal 7.0-18.0 [facility] Comment on above: Performed By: #### C MP, LIPID, TSH #### [facility] [address] [address] [address] Bertram Paulino Urea nitrogen/Creatinine [Mass ratio] 9.6 mg/mg Normal [facility] Comment on above: Performed By: #### C MP, LIPID, TSH #### [facility] [address] [address] [address] Bertram Paulino XR CHEST 1 Von [...] VANESSA MARTINEZ Date: 2022-05-14 19:51 Normal [facility] CARDIAC ERASMO ADMITon 022 CK [Catalytic activity/Vol] 45 U/L Normal 26-192 [facility] Comment on above: Performed By: #### C MADM, TSH, CMP ####[facility] [address] [address]Dr. Bertram Paulino CK.MB [Mass/Vol] ng/mL Normal <=3.60 [facility] Comment on above: Performed By: #### C JASMYN TSH, CMP ####[facility] [address] [address]DrHazel Paulino HSTROP 5.1 pg/mL Normal 4.0-51.3 [facility] Comment on above: Result Comment: CUT- OFF POINTS HAVE BEEN ESTABLISHED BASED ON THE FOURTH UNIVERSAL DEFINITIONS OF MYOCARDIAL INFARCTION. THE UPPER REFERENCE LIMIT (URL) OF TROPONIN, DEFINED THE 99TH PERCENTILE OF cTnI DISTRIBUTION IN A REFERENCE POPULATION, HAS BEEN CONFIRMED THE DECISION THRESHOLD FOR [place] DIAGNOSIS. Performed By: #### C JASMYN TSH, CMP ####[facility] [address] [address]DrHazel Paulino JEAN-PIERRE 36 ng/mL Normal 9-82 [facility] Comment on above: Performed By: #### C JASMYN TSH, CMP ####[facility] [address] [address]DrHazel Paulino CBC AUTO DIFFon 05-04-2022 BASO # 0.0 103/ul Normal 0.0-0.1 [facility] Comment on above: Performed By: #### C BC #### [facility] [address] [address] [address] Bertram Paulino Basophils/100 WBC (Bld) 0.6 % Normal 0.2-2.0 [facility] Comment on above: Performed By: #### C BC #### [facility] [address] [address] [address] Bertram Paulino EO # 0.1 103/ul Normal 0.0-0.7 [facility] Comment on above: Performed By: #### C BC #### [facility] [address] [address] [address] Bertram Paulino Eosinophils/100 WBC (Bld) 1.7 % Normal 0.9-7.0 [facility] Comment on above: Performed By: #### C BC #### [facility] [address] [place] [address] Dr. Bertram Paulino Erythrocyte distribution width (RBC) [Ratio] 13.2 % Normal 11.0-15.0 [facility] Comment on above: Performed By: #### C BC #### [facility] [address] [place] [address] Dr. Bertram Paulino Hematocrit (Bld) [Volume fraction] 40.9 % Normal 36.0-48.0 [facility] Comment on above: Performed By: #### C BC #### [facility] [address] [place] [address] Dr. Bertram Paulino Hemoglobin (Bld) [Mass/Vol] 13.6 g/dL Normal 12.0-16.0 [facility] Comment on above: Performed By: #### C BC #### [facility] [address] [place] [address] Dr. Bertram Paulino IG # 0.02 10e3/ul Normal 0.00-0.03 [facility] Comment on above: Performed By: #### C BC #### [facility] [address] [place] [address] Dr. Bertram Paulino IG % 0.3 % Normal 0.0-0.5 [facility] Comment on above: Performed By: #### C BC #### [facility] [address] [place] [address] Dr. Bertram Paulino LYMPH # 2.5 103/ul Normal 1.2-3.8 [facility] Comment on above: Performed By: #### C BC #### [facility] [address] [place] [address] Dr. Bertram Paulino Lymphocytes/100 WBC (Bld) 36.0 % Normal 20.5-60.0 [facility] Comment on above: Performed By: #### C BC #### [facility] [address] [place] [address] Dr. Bertram Paulino MANUAL DIFF REQ NO Normal [facility] Comment on above: Performed By: #### C BC #### [facility] [address] [place] [address] Dr. Bertram Paulino MCH (RBC) [Entitic mass] 29.0 pg Normal 26.7-34.0 [facility] Comment on above: Performed By: #### C BC #### [facility] [address] [place] [address] Dr. Bertram Paulino MCHC (RBC) [Mass/Vol] 33.3 g/dL Normal 29.9-35.2 [facility] Comment on above: Performed By: #### C BC #### [facility] [address] [place] [address] Dr. Bertram Paulino MCV (RBC) [Entitic vol] 87.2 fL Normal 81.0-99.0 [facility] Comment on above: Performed By: #### C BC #### [facility] [address] [place] [address] Dr. Bertram Paulino MONO # 0.5 103/ul Normal 0.3-0.8 [facility] Comment on above: Performed By: #### C BC #### [facility] [address] [place] [address] Dr. Bertram Paulino Monocytes/100 WBC (Bld) 6.9 % Normal 1.7-12.0 [facility] Comment on above: Performed By: #### C BC #### [facility] [address] [place] [address] Dr. Bertram Paulino NEUT # 3.8 103/ul Normal 1.4-6.5 [facility] Comment on above: Performed By: #### C BC #### [facility] [address] [place] [address] Dr. Bertram Paulino Neutrophils/100 WBC (Bld) 54.5 % Normal 43.0-75.0 [facility] Comment on above: Performed By: #### C BC #### [facility] [address] [place] [address] Dr. Bertram Paulino Platelet mean volume (Bld) [Entitic vol] 10.3 fL Normal 9.5-13.5 [facility] Comment on above: Performed By: #### C BC #### [facility] [address] [place] [address] Dr. Bertram Paulino PLT 316 103/ul Normal 150-450 [facility] Comment on above: Performed By: #### C BC #### [facility] [address] [place] [address] Dr. Bertram Paulino RBC 4.69 106/ul Normal 4.20-5.40 [facility] Comment on above: Performed By: #### C BC #### [facility] [address] [place], [place] [id number] Dr. Bertram Paulino WBC 6.9 103/ul Normal 4.0-11.0 [facility] Comment on above: Performed By: #### C BC #### [facility] [address] [place] [address] Dr. Bertram Paulino Covid-19 PCR ([facility])on 04-14 SARS-CoV-2 (COVID-19) RNA KIRT+probe Ql (Unsp spec) Not detected Normal NOT DETECTED [facility] Comment on above: Result Comment: When diagnostic [...] for this test is supported by the [place] of Health and Human Service's declaration that [...] By: #### C MP, LIPID, TSH #### [facility] [address] [place], [place] [id number] Dr. Bertram Paulino ER URINE PROFILEon 2 Bilirubin Ql (U) Negative Normal NEGATIVE [facility] Comment on above: Performed By: #### C MP, LIPID, TSH #### [facility] [address] [address] [address] Bertram Paulino Clarity (U) CLEAR Normal CLEAR [facility] Comment on above: Performed By: #### C MP, LIPID, TSH #### [facility] [address] [address] [address] Bertram Paulino Color (U) YELLOW Normal YELLOW [facility] Comment on above: Performed By: #### C MP, LIPID, TSH #### [facility] [address] [address] [address] Bertram ETIENNE A micrscopic examination will be performed if indicated. Normal [facility] Comment on above: Performed By: #### C MP, LIPID, TSH #### [facility] [address] [place] [address] Dr. Bertram Paulino Glucose Ql (U) Negative Normal NEGATIVE [facility] Comment on above: Performed By: #### C MP, LIPID, TSH #### [facility] [address] [place] [address] Dr. Bertram Paulino Hemoglobin Ql (U) Negative Normal NEGATIVE [facility] Comment on above: Performed By: #### C MP, LIPID, TSH #### [facility] [address] [place] [address] Dr. Bertram Paulino Ketones Ql (U) TRACE Abnormal NEGATIVE [facility] Comment on above: Performed By: #### C MP, LIPID, TSH #### [facility] [address] [place] [address] Dr. Bertram Paulino LEUKOCYTES Negative Normal NEGATIVE [facility] Comment on above: Performed By: #### C MP, LIPID, TSH #### [facility] [address] [place] [address] Dr. Bertram Paulino Nitrite Ql (U) Negative Normal NEGATIVE [facility] Comment on above: Performed By: #### C MP, LIPID, TSH #### [facility] [address] [place] [address] Dr. Bertram Paulino pH (U) 7.5 [pH] Normal 5-9 [facility] Comment on above: Performed By: #### C MP, LIPID, TSH #### [facility] [address] [address] [address] Bertram Paulino SPEC GRAVITY 1.015 Normal 1.005-<=1.025 [facility] Comment on above: Performed By: #### C MP, LIPID, TSH #### [facility] [address] [address] [address] Bertram Paulino UA PROTEIN TRACE Normal NEGATIVE/ TRACE [facility] Comment on above: Performed By: #### C MP, LIPID, TSH #### [facility] [address] [address] [address] Bertram Paulino UR MICRO IND NOT INDICATED Normal [facility] Comment on above: Performed By: #### C MP, LIPID, TSH #### [facility] [address] [address] [address] Bertram Paulino Urobilinogen Qn (U) 0.2 {Yazmin'U}/dL Normal 0.2 - 1. 0 [facility] Comment on above: Performed By: #### C MP, LIPID, TSH #### [facility] [address] [address] [address] Bertram Paulino PROF 14(COMP METB)on 022 Albumin [Mass/Vol] 3.7 g/dL Normal 3.4-5.0 [facility] Comment on above: Performed By: #### C MADM, TSH, CMP ####[facility] [address] [address]DrHazel Paulino Albumin/Globulin [Mass ratio] 1.0 {ratio} Normal [facility] Comment on above: Performed By: #### C MADM, TSH, CMP ####[facility] [address] [id number] Paulino ALP [Catalytic activity/Vol] 59 U/L Normal 46-116 [facility] Comment on above: Performed By: #### C MADM, TSH, CMP ####[facility] [address] [address]Dr. Bertram Paulino ALT [Catalytic activity/Vol] 55 U/L Normal 14-59 [facility] Comment on above: Performed By: #### C MADM, TSH, CMP ####[facility] [address] [address]Dr. Bertram Paulino Anion gap [Moles/Vol] 13.6 mmol/L Normal [facility] Comment on above: Performed By: #### C MADM, TSH, CMP ####[facility] [address] [address]Dr. Bertram Paulino AST [Catalytic activity/Vol] 33 U/L Normal 15-37 [facility] Comment on above: Performed By: #### C MADM, TSH, CMP ####[facility] [address] [address]Dr. Bertram Paulino Bilirubin [Mass/Vol] 0.7 mg/dL Normal 0.2-1.0 [facility] Comment on above: Performed By: #### C MADM, TSH, CMP ####[facility] [address] [place], [place] [address]Dr. Bertram Paulino Calcium [Mass/Vol] 9.3 mg/dL Normal 8.5-10.1 [facility] Comment on above: Performed By: #### C MADM, TSH, CMP ####[facility] [address] [place], [place] [address]Dr. Bertram Paulino Chloride [Moles/Vol] 102 mmol/L Normal 98-107 [facility] Comment on above: Performed By: #### C MADM, TSH, CMP ####[facility] [address] [place], [place] [address]Dr. Bertram Paulino CO2 [Moles/Vol] 28.1 mmol/L Normal 21.0-32.0 [facility] Comment on above: Performed By: #### C MADM, TSH, CMP ####[facility] [address] [address]Dr. Bertram Paulino Creatinine [Mass/Vol] 0.80 mg/dL Normal 0.55-1.02 [facility] Comment on above: Performed By: #### C MADM, TSH, CMP ####[facility] [address] [address]Dr. Bertram Paulino EGFR-AF INDIAN >60 Normal >=60 [facility] Comment on above: Performed By: #### C MADM TSH, CMP ####[facility] [address] [address]Dr. Bertram Paulino EGFR-NON AF INDIAN >60 Normal >=60 [facility] Comment on above: Performed By: #### C MADKim TSH, CMP ####[facility] [address] [address]Dr. Bertram Paulino Globulin (S) [Mass/Vol] 3.7 g/dL Normal [facility] Comment on above: Performed By: #### C JASMYN TSH, CMP ####[facility] [address] [address]Dr. Bertram Paulino Glucose [Mass/Vol] 104 mg/dL Normal 74-106 [facility] Comment on above: Performed By: #### C JASMYN TSH, CMP ####[facility] [address] [place], [place] [address]Dr. Bertram Paulino Potassium [Moles/Vol] 3.7 mmol/L Normal 3.5-5.1 [facility] Comment on above: Performed By: #### C JASMYN TSH, CMP ####[facility] [address] [address]Dr. Vivianalan Paulino Protein [Mass/Vol] 7.4 g/dL Normal 6.4-8.2 [facility] Comment on above: Performed By: #### C MADM, TSH, CMP ####[facility] [address] [address]Dr. Vivianalan Paulino Sodium [Moles/Vol] 140 mmol/L Normal 136-145 [facility] Comment on above: Performed By: #### C MADM TSH, CMP ####[facility] [address] [address]Dr. Bertram Paulino Urea nitrogen [Mass/Vol] 19.0 mg/dL Critically high 7.0-18.0 [facility] Comment on above: Performed By: #### C MADM, TSH, CMP ####[facility] [address] [place], [place] [address]Pm. Bertram Paulino Urea nitrogen/Creatinine [Mass ratio] 23.8 mg/mg Normal [facility] Comment on above: Performed By: #### C MADM, TSH, CMP ####[facility] [address] [place], [place] [address]Nb. Bertram Paulino TSHon 05-04-2022 TSH 1.746 uIU/mL Normal 0.358-3.740 [facility] Comment on above: Performed By: #### C MADM, TSH, CMP ####[facility] [address] [id number]. Bertram Paulino B-Type Natriuretic Peptideon 12-28-2021 Natriuretic peptide B (Bld) [Mass/Vol] 15.0 pg/mL Normal 5-100 [facility] Comment on above: Result Comment: PERF ORMED BY: [place] [address] PATHOLOGIST [employer] STORMY MTZ M.D. Performed By: #### B INTERNAL SALES #### [address] Basic Metabolic Panelon 12-14 Calcium [Mass/Vol] 9.4 mg/dL Normal 8.2-10.2 [facility] Comment on above: Performed By: #### C BC, PT, PTT, HEPATIC, BMP, LIPASE #### [facility] [address] [place] [address] [place] Chloride [Moles/Vol] 101 mmol/L Normal 95-114 [facility] Comment on above: Performed By: #### C BC, PT, PTT, HEPATIC, BMP, LIPASE #### [place] [address] [place] CO2 [Moles/Vol] 21.0 mmol/L Low 22.0-30.0 [facility] Comment on above: Performed By: #### C BC, PT, PTT, HEPATIC, BMP, LIPASE #### [address] [place] [address] [place] Creatinine [Mass/Vol] 0.54 mg/dL Normal 0.44-1.03 [facility] Comment on above: Performed By: #### C BC, PT, PTT, HEPATIC, BMP, LIPASE #### [address] Creatinine Clr Calc Pharmacy 153.81 [facility] Comment on above: Performed By: #### C BC, PT, PTT, HEPATIC, BMP, LIPASE #### [address] Estimated GFR ( Kristen > 60 [facility] Comment on above: Result Comment: GFR estimated reference range: According to KDOQI guidelines, <60 ml/min/1.73m2 is sufficient to diagnose a patient with chronic kidney disease. Performed By: #### C BC, PT, PTT, HEPATIC, BMP, LIPASE #### [address] Estimated GFR (Non- Am > 60 [facility] Comment on above: Performed By: #### C BC, PT, PTT, HEPATIC, BMP, LIPASE #### [address] Glucose [Mass/Vol] 98 mg/dL Normal 70-100 [facility] Comment on above: Result Comment: [place] om Glucose Reference Range is dependent on time and content of last meal. Glucose of more than 200 mg/dL in a nonstressed, ambulatory subject supports the diagnosis of Diabetes Mellitus. ADA recommended reference range Performed By: #### C BC, PT, PTT, HEPATIC, BMP, LIPASE #### [address] Potassium [Moles/Vol] 3.7 mmol/L Normal 3.5-5.1 [facility] Comment on above: Performed By: #### C BC, PT, PTT, HEPATIC, BMP, LIPASE #### [address] Sodium [Moles/Vol] 134 mmol/L Low 136-146 [facility] Comment on above: Performed By: #### C BC, PT, PTT, HEPATIC, BMP, LIPASE #### [facility] [address] Urea nitrogen [Mass/Vol] 4 mg/dL Low 9-23 [facility] Comment on above: Performed By: #### C BC, PT, PTT, HEPATIC, BMP, LIPASE #### [facility] [address] abdomen pelvis w conon CT abdomen pelvis w con [facility] [address] [place] [address] [place] [address] CT Scan Report Signed Patient: Lu Cancino MR#: [id number] : [id number] Acct:[id number] Age/Sex: 50 / F ADM Date: 12/28/21 Loc: ER Room: Type: [facility] ER Attending Dr: Ordering Provider: Ricardo Ricardo [...] Erasmo Brooks M.D.12/28/2021 8:14 PM Dictation Location: [place] [address] Transcribed By: [facility] 12/28/212013 Dictated By: Erasmo Brooks II, MD 12/28/212006 Signed By: 12/28/212013 Normal [facility] Complete Blood Count Auto Di ffon 12-28-2021 Basophils (Bld) [#/Vol] 0.0 10*3/uL Normal 0.0-0.2 [facility] Comment on above: Result Comment: PERF ORMED BY: [place] [address] PATHOLOGIST [employer]AR[employer]MOVING PLANT OPERATOR STORMY MTZ M.D. Performed By: #### C BC, PT, PTT, HEPATIC, BMP, LIPASE #### [facility] [address] [place] [address] Basophils/100 WBC (Bld) 0.9 % Normal . [facility] Comment on above: Performed By: #### C BC, PT, PTT, HEPATIC, BMP, LIPASE #### [facility] [address] [place] [address] Eosinophils (Bld) [#/Vol] 0.0 10*3/uL Normal 0.0-0.45 [facility] Comment on above: Performed By: #### C BC, PT, PTT, HEPATIC, BMP, LIPASE #### [address] Eosinophils/100 WBC (Bld) 0.7 % Normal . [facility] Comment on above: Performed By: #### C BC, PT, PTT, HEPATIC, BMP, LIPASE #### [address] Erythrocyte distribution width (RBC) [Ratio] 14.9 % Normal 11.9-15.3 [facility] Comment on above: Performed By: #### C BC, PT, PTT, HEPATIC, BMP, LIPASE #### [address] Hematocrit (Bld) [Volume fraction] 37.6 % Normal 34.0-46.4 [facility] Comment on above: Performed By: #### C BC, PT, PTT, HEPATIC, BMP, LIPASE #### [address] Hemoglobin (Bld) [Mass/Vol] 12.8 g/dL Normal 11.8-15.4 [facility] Comment on above: Performed By: #### C BC, PT, PTT, HEPATIC, BMP, LIPASE #### [address] Lymphocytes (Bld) [#/Vol] 1.7 10*3/uL Normal 1.00-4.8 [facility] Comment on above: Performed By: #### C BC, PT, PTT, HEPATIC, BMP, LIPASE #### [address] Lymphocytes/100 WBC (Bld) 34.3 % Normal . [facility] Comment on above: Performed By: #### C BC, PT, PTT, HEPATIC, BMP, LIPASE #### [address] MCH (RBC) [Entitic mass] 30.2 pg Normal 24.7-34.3 [facility] Comment on above: Performed By: #### C BC, PT, PTT, HEPATIC, BMP, LIPASE #### [address] MCV (RBC) [Entitic vol] 88.6 fL Normal 80-100 [facility] Comment on above: Performed By: #### C BC, PT, PTT, HEPATIC, BMP, LIPASE #### [address] Mean Corpuscular HGB Conc 34.1 g/dL Normal 32.0-35.0 [facility] Comment on above: Performed By: #### C BC, PT, PTT, HEPATIC, BMP, LIPASE #### [address] Monocytes (Bld) [#/Vol] 0.6 10*3/uL Normal 0.0-0.8 [facility] Comment on above: Performed By: #### C BC, PT, PTT, HEPATIC, BMP, LIPASE #### [address] Monocytes/100 WBC (Bld) 12.1 % Normal . [facility] Comment on above: Performed By: #### C BC, PT, PTT, HEPATIC, BMP, LIPASE #### [address] Neutrophils (Bld) [#/Vol] 2.5 10*3/uL Normal 1.8-7.7 [facility] Comment on above: Performed By: #### C BC, PT, PTT, HEPATIC, BMP, LIPASE #### [address] Neutrophils/100 WBC (Bld) 52.0 % Normal . [facility] Comment on above: Performed By: #### C BC, PT, PTT, HEPATIC, BMP, LIPASE #### [address] Nucleated RBC/100 WBC (Bld) [Ratio] 0.0 % Normal 0-0.5 [facility] Comment on above: Performed By: #### C BC, PT, PTT, HEPATIC, BMP, LIPASE #### [address] Platelet mean volume (Bld) [Entitic vol] 7.8 fL Normal 6.3-10.7 [facility] Comment on above: Performed By: #### C BC, PT, PTT, HEPATIC, BMP, LIPASE #### [facility] [address] Platelets (Bld) [#/Vol] 458 10*3/uL High 150-450 [facility] Comment on above: Performed By: #### C BC, PT, PTT, HEPATIC, BMP, LIPASE #### [address] RBC (Bld) [#/Vol] 4.25 10*6/uL Normal 3.60-5.00 [facility] Comment on above: Performed By: #### C BC, PT, PTT, HEPATIC, BMP, LIPASE #### [facility] [address] WBC (Bld) [#/Vol] 4.9 10*3/uL Normal 4.5-11.0 [facility] Comment on above: Performed By: #### C BC, PT, PTT, HEPATIC, BMP, LIPASE #### [address] ECG 12 lead ECGon 12-28-2021 ECG 12 lead ECG [facility] [place] [address] [place] [address] Electrocardiograph Report Signed Patient: Lu Cancino MR#: [id number] : 1970 Acct:[id number] Age/Sex: 50 / F ADM Date: 12/28/21 Loc: ER Room: Type: [facility] ER Attending Dr: Ordering Provider: Ricardo [...] sinus rhythm Confirmed by Ricardo RICARDO DO ([id number]) on 12/28/2021 9:15:05 PM Referred By: Electronically Signed By:Ricardo RICARDO DO Transcribed By: MUS Signed By Ricardo Ricardo, 0 12/28/212114 Normal [facility] HCG,Urineon 12-28-2021 Beta HCG ( test) Ql (U) Negative [facility] Comment on above: Order Comment: Name Collection Type:: Clean-Voided Midstream Result Comment: PERF ORMED BY: [place] [address] PATHOLOGIST [employer] OPERATOR STORMY MTZ M.D. Performed By: #### C BC, PT, PTT, HEPATIC, BMP, LIPASE #### [address] Hepatic Panelon 12-28-2021 Albumin [Mass/Vol] 4.0 g/dL Normal 3.2-5.5 [facility] Comment on above: Performed By: #### C BC, PT, PTT, HEPATIC, BMP, LIPASE #### [address] Albumin/Globulin [Mass ratio] 1.6 {ratio} [facility] Comment on above: Performed By: #### C BC, PT, PTT, HEPATIC, BMP, LIPASE #### [address] ALP [Catalytic activity/Vol] 38 U/L Normal 32-92 [facility] Comment on above: Performed By: #### C BC, PT, PTT, HEPATIC, BMP, LIPASE #### [address] ALT [Catalytic activity/Vol] 44 U/L Normal 10-60 [facility] Comment on above: Performed By: #### C BC, PT, PTT, HEPATIC, BMP, LIPASE #### [address] AST [Catalytic activity/Vol] 38 U/L Normal 10-42 [facility] Comment on above: Performed By: #### C BC, PT, PTT, HEPATIC, BMP, LIPASE #### [address] Bilirubin [Mass/Vol] 0.8 mg/dL Normal 0.3-1.2 [facility] Comment on above: Performed By: #### C BC, PT, PTT, HEPATIC, BMP, LIPASE #### [address] Bilirubin,Indirect 0.7 mg/dL Normal [facility] Comment on above: Performed By: #### C BC, PT, PTT, HEPATIC, BMP, LIPASE #### [address] Bilirubin.indirect [Mass/Vol] 0.1 mg/dL Normal 0.0-0.4 [facility] Comment on above: Performed By: #### C BC, PT, PTT, HEPATIC, BMP, LIPASE #### [address] Globulin (S) [Mass/Vol] 2.5 g/dL Normal [facility] Comment on above: Performed By: #### C BC, PT, PTT, HEPATIC, BMP, LIPASE #### [address] Protein [Mass/Vol] 6.5 g/dL Normal 6.1-7.9 [facility] Comment on above: Performed By: #### C BC, PT, PTT, HEPATIC, BMP, LIPASE #### [address] Lipaseon 12-28-2021 Lipase [Catalytic activity/Vol] 29.0 U/L Normal 22-51 [facility] Comment on above: Result Comment: PERF ORMED BY: [place] [address] PATHOLOGIST [employer] OPERATOR STORMY MTZ M.D. Performed By: #### C BC, PT, PTT, HEPATIC, BMP, LIPASE #### [address] Partial Thromboplastin Timeo n 12-28-2021 aPTT Coag (Bld) [Time] 30.4 s Normal 25.1-36.5 [facility] Comment on above: Result Comment: PERF ORMED BY: [place] [address] PATHOLOGIST [employer]ING [employer] OPERATOR STORMY MTZ M.D. Performed By: #### C BC, PT, PTT, HEPATIC, BMP, LIPASE #### [facility] [address] [place] [address] Prothrombin Time INRon 12-28 INR Coag (PPP) [Relative time] 1.0 {INR} Normal [facility] Comment on above: Result Comment: INR [...] BC, PT, PTT, HEPATIC, BMP, LIPASE #### [address] PT Coag (PPP) [Time] 11.8 s Normal 9.0-12.9 [facility] Comment on above: Performed By: #### C BC, PT, PTT, HEPATIC, BMP, LIPASE #### [facility] [address] [place] [address] Urinalysison 12-28-2021 Appearance (U) Clear Normal Clear [facility] Comment on above: Order Comment: Name Collection Type:: Clean-Voided Midstream Performed By: #### C BC, PT, PTT, HEPATIC, BMP, LIPASE #### [facility] [address] [place] [address] Bilirubin,Urine Negative Normal Negative [facility] Comment on above: Order Comment: Name Collection Type:: Clean-Voided Midstream Performed By: #### C BC, PT, PTT, HEPATIC, BMP, LIPASE #### [facility] [address] [place] [address] Color (U) Yellow Normal Yellow [facility] Comment on above: Order Comment: Name Collection Type:: Clean-Voided Midstream Performed By: #### C BC, PT, PTT, HEPATIC, BMP, LIPASE #### [facility] [address] [place] [address] Glucose Ql (U) Normal Normal Normal [facility] Comment on above: Order Comment: Name Collection Type:: Clean-Voided Midstream Performed By: #### C BC, PT, PTT, HEPATIC, BMP, LIPASE #### [address] Ketones Ql (U) Negative Normal Negative [facility] Comment on above: Order Comment: Name Collection Type:: Clean-Voided Midstream Performed By: #### C BC, PT, PTT, HEPATIC, BMP, LIPASE #### [address] Leukocyte esterase Test strip Ql (U) Negative Normal Negative [facility] Comment on above: Order Comment: Name Collection Type:: Clean-Voided Midstream Performed By: #### C BC, PT, PTT, HEPATIC, BMP, LIPASE #### [address] Nitrite,Urine Negative Normal Negative [facility] Comment on above: Order Comment: Name Collection Type:: Clean-Voided Midstream Performed By: #### C BC, PT, PTT, HEPATIC, BMP, LIPASE #### [address] Occult Blood,Urine Negative Normal Negative [facility] Comment on above: Order Comment: Name Collection Type:: Clean-Voided Midstream Performed By: #### C BC, PT, PTT, HEPATIC, BMP, LIPASE #### [place] [address] [place] pH (U) 7.5 [pH] Normal 5.0-9.0 [facility] Comment on above: Order Comment: Name Collection Type:: Clean-Voided Midstream Performed By: #### C BC, PT, PTT, HEPATIC, BMP, LIPASE #### [address] Protein,Urine Negative Normal Negative [facility] Comment on above: Order Comment: Name Collection Type:: Clean-Voided Midstream Performed By: #### C BC, PT, PTT, HEPATIC, BMP, LIPASE #### [address] Specificy [place],Urine 1.004 Normal 1.001-1.030 [facility] Comment on above: Order Comment: Name Collection Type:: Clean-Voided Midstream Performed By: #### C BC, PT, PTT, HEPATIC, BMP, LIPASE #### [address] Urobilinogen,Urine Normal Normal Normal [facility] Comment on above: Order Comment: Name Collection Type:: Clean-Voided Midstream Performed By: #### C BC, PT, PTT, HEPATIC, BMP, LIPASE #### [address] XR chest 1V portableon 12-28 XR chest 1V portable [facility] [place] [address] XRay Report Signed Patient: Lu Cancino MR#: [id number] : 1970 Acct:[id number] Age/Sex: 50 / F ADM Date: 12/28/21 [...] Erasmo Brooks M.D.12/28/2021 6:18 PM Dictation Location: [place] [address] Transcribed By: [facility] 12/28/211817 Dictated By: Erasmo Brooks II, MD 12/28/211816 Signed By: 12/28/211817 Normal [facility] ANTI DNAon 04-09-2019 ANTI DNA <1:10 Normal <1:10 [facility] Comment on above: Performed By: #### 1 0097, 72112, 26593 #### [facility] [address] [place] [address], [facility] ANTI-ENAon 04-09-2019 ANTI SM Negative Normal NEG,NEGATIVE, Neg [facility] Comment on above: Performed By: #### 1 0097, 36507, 28051 #### [facility] [address] [place] [address], [facility] ANTI SM/ANTIRNP Negative Normal NEG,NEGATIVE , Neg [facility] Comment on above: Performed By: #### 1 0097, 15637, 81634 #### [facility] [address] [place] [address], [facility] C REACTIVE PROTEINon 019 CRP mass conc 8.0 mg/L High 0.0-7.0 [facility] Comment on above: Performed By: #### 6 1405 #### [facility] [address] [place] [address], [facility] CHROMATIN ANTIBODY, IGG 2004 287on 04-09-2019 CHROMATIN ANTIBODY, IGG 4 Units Normal 0-19 [facility] Comment on above: Result Comment: INTE [...] when antibody levels are high. Performed by [employer], [address] [facility] [place] [address] [email or web address], Sam Brito MD - Lab. Director CYCLIC CITRULLINATED PEPTIDE [place] [id number] 04-09-2019 CYCLIC CIT PEP 5 Units Normal 0-19 [facility] Comment on above: Result Comment: INTE RPRETIVE [...] be monitored and testing repeated. Performed by [facility], [address] [facility] [place] [address] [email or web address], Sam Brito MD - Lab. Director SEDIMENTATION RATEon 019 SED RATE 34 mm/hr High 0-20 [facility] Comment on above: Performed By: #### 5 6506 #### [facility] [address] [place] [address], [facility] SJOGRENS ANTIBODIESon 2018 SS-A Negative Normal NEG,NEGATIVE, Neg [facility] Comment on above: Performed By: #### 1 0097, 91236, 76582 #### [facility] [address] [place] [address], [facility] SS-B Negative Normal NEG,NEGATIVE, Neg [facility] Comment on above: Performed By: #### 1 0097, 48238, 39590 #### [facility] [place] [address], [facility] Vital Signs Date Time Vital Sign Value Performing Clinician Facility 09-20-2024 18:52-0500 Body height 157.48 cm [facility] 09-20-2024 18:52-0500 Body mass index (BMI) [Ratio] 49.9 kg/m2 [facility] 09-20-2024 18:52-0500 Body temperature 98.3 [degF] [facility] 09-20-2024 18:52-0500 Body weight 123.83 kg [facility] 09-20-2024 18:52-0500 Diastolic blood pressure 72 mm[Hg] [facility] 09-20-2024 18:52-0500 Heart rate 83 /min [facility] 09-20-2024 18:52-0500 Respiratory rate 16 /min [facility] 09-20-2024 18:52-0500 SaO2% (BldA) [Mass fraction] 97 % [facility] 09-20-2024 18:52-0500 Systolic blood pressure 110 mm[Hg] [facility] 08-26-2023 13:10-0400 Body height 157.48 cm Selene Martinez Other [facility] [employer] Other 08-26-2023 13:10-0400 Body mass index (BMI) [Ratio] 49.01 kg/m2 Selene Martinez Other [facility] [facility] [employer] Other 08-26-2023 13:10-0400 Body temperature 97.9 [degF] Selene Michelle Other [employer] Other 08-26-2023 13:10-0400 Body weight 121.56 kg Selene Martinez Other [facility] [facility] [employer] Other 08-26-2023 13:10-0400 Diastolic blood pressure 71 mm[Hg] Selene Martinez Other [facility] Other 08-26-2023 13:10-0400 Respiratory rate 18 /min Selene Changmond Other [employer] Other 08-26-2023 13:10-0400 SaO2% (BldA) [Mass fraction] 99 % Selene Changmond Other [employer] Other 08-26-2023 13:10-0400 Systolic blood pressure 142 mm[Hg] Selene Changmond Other [employer] Other 05-31-2022 18:00-0400 Body height 157.48 cm Rose De Other [employer] Other 05-31-2022 18:00-0400 Body mass index (BMI) [Ratio] 45.72 kg/m2 Rose De Other [employer] Other 05-31-2022 18:00-0400 Body temperature 98.3 [degF] Rose De Other [employer] Other 05-31-2022 18:00-0400 Body weight 113.4 kg Rose De Other [employer] Other 05-31-2022 18:00-0400 Respiratory rate 18 /min Rose De Other [employer] Other 05-31-2022 18:00-0400 SaO2% (BldA) [Mass fraction] 95 % Rose De Other [employer] Other 09-10-2021 13:45-0400 Body height 157.48 cm Selene Martinez Other [employer] Other 09-10-2021 13:45-0400 Body mass index (BMI) [Ratio] 45.72 kg/m2 Selene Martinez Other [employer] Other 09-10-2021 13:45-0400 Body temperature 96.8 [degF] Selene Martinez Other [employer] Other 09-10-2021 13:45-0400 Body weight 113.4 kg Selene Martinez Other [employer] Other 09-10-2021 13:45-0400 Respiratory rate 18 /min Selene Martinez Other [facility] Other 09-10-2021 13:45-0400 SaO2% (BldA) [Mass fraction] 97 % Selene Martinez Other [employer] Other Encounters Encounter Date Encounter Type Care Provider Facility Start: 09-20-2024 End: 09-20-2024 ambulatory [facility] Work Phone: Start: 09-20-2024 End: 09-20-2024 Patient encounter procedure [facility] [place] Work Phone: Start: 09-08-2024 End: 09-10-2024 Refill Melani Augusta INTERNAL SALES Work Phone: [facility] Comment on above: Fibromyalgia (Primar y Dx); Gastroesophageal reflux disease, unspecified whether esophagitis present; Edema of lower extremity Start: 09-07-2024 End: 09-09-2024 Refill Melani Augusta INTERNAL SALES Work Phone: [facility] Comment on above: Gastroesophageal ref lux disease, unspecified whether esophagitis present Start: 09-06-2024 End: 09-06-2024 ambulatory EDDY LORENZANA Not Available Start: 09-02-2024 End: 09-02-2024 Telephone encounter Eddy Lorenzana MD Work Phone: [facility] [address] Start: 08-24-2024 End: 08-25-2024 [...] 12-15-2023 End: 12-15-2023 Chart abstracting Elvis Bronson [facility] Work Phone: [facility] Comment on above: Bipolar II disorder, most recent episode major depressive ([facility]) Start: 12-15-2023 End: 12-15-2023 ambulatory ELVISAnne BRONSON Not Available Start: 11-23-2023 End: 11-23-2023 ambulatory EDDY LORENZANA Not Available Start: 11-02-2023 End: 11-02-2023 ambulatory EDDY W LORENZANA Not Available Start: 09-28-2023 End: 09-28-2023 ambulatory EDDY W LORENZANA Not Available Start: 08-26-2023 End: 08-26-2023 ambulatory Selene Martinez Other [facility] Other Start: 08-26-2023 Office outpatient vi sit 15 minutes Selene Martinez [facility] [place] Start: 05-23-2023 End: 05-23-2023 ambulatory FRACISCO Alvarez [facility] Start: 04-11-2023 Letter encounter Lili black Start: 03-21-2023 End: 03-22-2023 ambulatory PUPPET MASTER MELANI AICHHOLZ Facility:H1 Start: 01-23-2023 End: 01-23-2023 ambulatory PUPPET MASTER MELANI AICHHOLZ Facility:[facility] Start: 01-12-2023 End: 01-13-2023 ambulatory PUPPET MASTER MELANI AICHHOLZ Facility:[facility] Start: 01-12-2023 Letter encounter Lili black Start: 08-09-2022 End: 08-10-2022 ambulatory SLADE HETAL . Facility:[facility] Start: 07-19-2022 End: 07-20-2022 ambulatory PUPPET MASTER MELANI AICHHOLZ Facility:[facility]1 Start: 07-15-2022 End: 07-16-2022 ambulatory PUPPET MASTER MELANI AICHHOLZ Facility:[facility]1 Start: 07-10-2022 End: 07-11-2022 ambulatory PUPPET MASTER MELANI AICHHOLZ Facility:[facility]1 Start: 07-05-2022 End: 07-05-2022 Phys/qhp telephone evaluation 21-30 min Lucía Calderon APRN-PUPPET MASTER Work Phone: [facility] Comment on above: Chest pain, unspecif ied type (Primary Dx); [id number] condition Start: 07-05-2022 End: 07-08-2022 ambulatory UNKNOWN PROVIDER Facility:[facility] Start: 06-30-2022 End: 07-01-2022 ambulatory PUPPET MASTER MELANI AUGUSTA Facility:[facility]1 Start: 06-15-2022 End: 06-16-2022 ambulatory PUPPET MASTER MELANI AICDANAZ Facility:[facility]1 Start: 06-04-2022 End: 06-04-2022 ambulatory PUPPET MASTER MELANI AUGUSTA Facility:[facility]1 Start: 05-31-2022 End: 05-31-2022 ambulatory Rose De Other [facility] Other Start: 05-31-2022 Office outpatient vi sit 25 minutes Rose De [facility] [place] Start: 05-15-2022 End: 05-15-2022 ambulatory PUPPET MASTER MELANI AUGUSTA Facility:[facility]1 Start: 05-04-2022 End: 05-04-2022 ambulatory ALEJANDRA LENIN . Facility: Start: 04-04-2022 Letter encounter Lili black Start: 03-24-2022 End: 03-24-2022 Phys/qhp telephone evaluation 11-20 min Lucía Calderon APRN-PUPPET MASTER Work Phone: [facility] Comment on above: Shortness of breath (Primary Dx); [id number] condition Start: 12-28-2021 End: 12-28-2021 Emergency department patient visit Ricardo Ricardo Facility:[facility] Start: 09-10-2021 (URG) Urgent Care Visit Selene cui [facility] [place] Procedures Date Procedure Procedure Detail Performing Clinician Start: 07-10-2024 Microscopic observat ion [Identifier] in Cervix by Cyto stain Mahesh Rocha MD Work Phone: Start: 05-28-2024 Mammography Mahesh alexandra MD Work Phone: Plan of Treatment Date Care Activity Detail Author Start: 07-10-2027 Screening for malignant neoplasm of cervix [facility] Start: 05-28-2025 Screening for malignant neoplasm of breast Mammogram [facility] Start: 10-28-2024 End: 10-28-2024 Patient encounter procedure 10/28/2024 1:00 PM EST Office Visit [facility] [address] [place] [address] Melani Deras, INTERNAL SALES [address] [place] [address] [facility] Start: 09-19-2024 End: 09-19-2024 Patient encounter procedure 09/19/2024 2:20 PM EST Office Visit [facility] [address] [address] Eddy Lorenzana MD [address] [facility] [address] [place] [address] [facility] Start: 09-06-2024 End: 09-06-2024 Telemedicine consultation with patient 09/06/2024 1:10 PM EDT Telemedicine [facility] [address] [phone] Eddy Lorenzana MD [address] [facility] [address] [place] [address] [facility] Start: 08-13-2024 Influenza vaccination Influenza Vaccine (#1) [facility] Start: 12-25-2023 End: 12-25-2023 Clinical Support 12/25/2023 2:00 PM EST Clinical Support [facility] [address] [place] [address] Elvis Bronson, [facility] [address] [place] [address] [facility] Start: 12-21-2023 End: 12-21-2023 Patient encounter procedure 12/21/2023 2:20 PM EST Office Visit [facility] [address] [place] [address] Eddy Lorenzana MD [address] [facility] [address] [place] [address] [facility] Start: 12-19-2023 End: 12-19-2023 Patient encounter procedure 12/19/2023 10:00 AM EST Office Visit [facility] [address] [place] [address] Eben Duque, AUTOMATION MACHINE OPERATOR-[facility] [address] [place] [address] [facility] Start: 12-15-2023 End: 12-15-2023 Clinical Support 12/15/2023 1:00 PM EST Clinical Support [facility] [address] [place] [address] Elvis Bronson, [facility] [address] [place] [address] [facility] Start: 07-14-2023 COVID-19 Vaccine ( season) COVID-19 Vaccine ( season) [facility] Start: 07-14-2023 Influenza vaccination Influenza Vaccine (#1) [facility] Start: 08-13-2022 Influenza vaccination Influenza Vaccine (#1) [facility] Start: 07-05-2022 End: 07-05-2022 Telemedicine consultation with patient 07/05/2022 Telemedicine Rheumatology Lucía Calderon, BESS-PUPPET MASTER [address] [place] [address] [facility] Start: 2019 [...] 1999 Screening for malignant neoplasm of cervix [facility] Start: 1990 Screening for malignant [...] 1970 Screening for malignant neoplasm of colon [facility] Payers Date Payer Category Payer Self-pay 2019 Medicaid [id number] 2019 Private Health Insurance [facility] MEDICAID [id number] 1969 Unknown [id number] 2.16.840.1.379845.3.579.2. 593 1969 Unknown [id number] 2.16.840.1.403936.3.579.2. 593 1969 Unknown [id number] 2.16.840.1.497184.3.579.2. 593 1969 Unknown [id number] 2.16.840.1.178878.3.579.2. 593 1969 Unknown [id number] 2.16.840.1.189353.3.579.2. 593 1969 Unknown [id number] 2.16.840.1.275700.3.579.2. 593 1969 Unknown [id number] 2.16.840.1.253962.3.579.2. 593 1969 Unknown [id number] 2.16.840.1.504724.3.579.2. 593 1969 Unknown [id number] 2.16.840.1.872565.3.579.2. 593 1969 Unknown [id number] 2.16.840.1.344356.3.579.2. 593 1969 Unknown [id number] 2.16.840.1.137449.3.579.2. 593 1969 Unknown [id number] 2.16.840.1.664874.3.579.2. 593 1969 Unknown [id number] 2.16.840.1.606929.3.579.2. 732 1969 Unknown [id number] 2.16.840.1.437973.3.579.2. 9 1969 Unknown [id number] 2.16.840.1.849763.3.579.2. 1258 1969 Unknown [id number] 2.16.840.1.829703.3.579.2. 1258 1969 Unknown [id number] 2.16.840.1.362039.3.579.2. 1258 1969 Unknown [id number] 2.16.840.1.879582.3.579.2. 1258 1969 Unknown [id number] 2..840.1.883553.3.579.2. 1258 1969 Unknown [id number] 2..840.1.919282.3.579.2. 1258 1969 Unknown [id number] 2..840.1.201419.3.579.2. 1258 1969 Unknown [id number] 2..840.1.074431.3.579.2. 1258 1969 Unknown [id number] 2..840.1.185744.3.579.2. 1258 1969 Unknown [id number] 2..840.1.725508.3.579.2. 1258 1969 Unknown [id number] 2..840.1.473891.3.579.2. 1258 1969 Unknown [id number] 2..840.1.881233.3.579.2. 1258 1969 Unknown [id number] 2.16.840.1.365325.3.579.2. 1258 1969 Unknown [id number] 2.16.840.1.448084.3.579.2. 1258 1969 Unknown [id number] 2.16.840.1.735711.3.579.2. 1258 1969 Unknown [id number] 2.16.840.1.144130.3.579.2. 1259 1969 Unknown [id number] 2.16.840.1.877901.3.579.2. 1259 1969 Unknown [id number] 2.16.840.1.254093.3.579.2. 1259 1969 Unknown [id number] 2.16.840.1.893401.3.579.2. 1259 1959 Unknown [id number] 2.16.840.1.882997.19 1959 Unknown [id number] Unknown [id number] 2.16.840.1.961608.3.579.2. 531 Social History Date Type Detail Facility Start: 01-10-2022 End: 09-20-2024 Tobacco smoking status [facility] Never smoked tobacco [facility] Start: 01-10-2022 End: 07-27-2023 Tobacco use [...] to any clubs or organizations such as adventist groups, unions, fraternal or athletic groups, or [...] [facility] Start: 09-20-2024 Sex Female (finding) [facility] Start: 1970 Sex Assigned At Female [facility] Medical Equipment Procedure Code Equipment Code Equipment Origin al Text Equipment Identifier Dates TEST ONCE DAILY [id number] Start: 02-15-2024 Clinical Notes 09-10-2021 to 09-02-2024 Telephone Encounter - Xenia Vega - 09/02/2024 3:09 PM EDTTelephone Encounter - Xenia Vega - 09/02/2024 3:09 PM Stella Bronson [facility] - 12/15/2023 1:00 PM EST Note Date & Type Note Facility 09-02-2024 Telephone encounter Note Form atting of this note might be different from the original. Spoke with patient regarding her most recent [employer] message to Dr Lorenzana. She is having [...] 1:15pm to discuss further with Dr. Lorenzana [facility] Healthcare 09-02-2024 Miscellaneous Notes Formattin g of this note might be different from the original. Spoke with patient regarding her most recent [employer] message to Dr Lorenzana. She is having [...] with Dr. Lorenzana documented in this encounter [facility] 12-15-2023 History of Presen t illness [...] and exhibiting a general state of irritability. nursing home goals Reduce overall level, frequency and intensity [...] medication as prescribed. documented in this encounter [facility] 08-26-2023 Evaluation note Encounter Date Diagnosis Assessment Notes Aug, Left sided sciatica (ICD-10 - M54.32) Drink plenty fluids, get plenty of rest. Continue home medications as prescribed. Take the prednisone as prescribed until gone. Limit your lifting and bending for the next few days. Follow-up with your family physician next week for recheck. [facility] Other 07-11-2023 NoteSubjective Patient ID: Lu Cancino [...] she was taking vitamin supplementation and [employer] [place] energy drinks, but that she had been [...] about 6 months (around 11/23/2023). Yimi Catalan, [id number] History of Present illness Narrative* Kvng AidanBESS preciado-MICHELL - 07/05/2022 1:13 PM EDT Images from the original note were not included. Documentation: Mode: Telephone Patient Patient Work Phone: Patient Cell Preferred phone: [phone] Consent: I confirmed patient understanding of the risks and benefits of telehealth visits and obtained consent to proceed with the telehealth visit. Location of Patient: Home of patient Post Covid Follow Up Telemedicine Visit Note: CC: f/u of [id number] condition Recall: Lu Cancino is a 51 [...] Also has neuropathy Patient still resides near [place], [place] PMH/PSH: Reviewed 07/05/22 Allergies: Per list, [...] Post Covid Nurse Practitioner documented in this [id number] Evaluation note* Encounter Date Diagnosis Assessment Notes [...] understanding and is agreeable to treatment plan [facility] Other 05-12-2022 History of Present illness Narrative* Lucía Calderon APRN-CNP - 03/24/2022 10:03 AM EDT Images from the original note were not included. Documentation: Mode: Telephone Patient Patient Work Phone: Patient Cell Preferred phone: [phone] Consent: I confirmed patient understanding of the risks and benefits of telehealth visits and obtained consent to proceed with the telehealth visit. Location of Patient: Home of patient Post Covid Follow Up Telemedicine Visit Note: CC: f/u of [id number] condition Recall: Lu Cancino is a 51 [...] Post Covid Nurse Practitioner documented in this [id number] Evaluation note* Encounter Date Diagnosis Assessment Notes [...] Patient care instructions given in writting by [facility] Home document. Additional time spent conducting pre-visit phone call, screening for symptoms, instructions on social distancing, application and removal of PPE, and cleaning of examination room, equipment and supplies was preformed. Patient education given for testing methodology and results. Patient care instructions given in writting by [facility] document. [facility] Other Evaluation note* Diagnosis Shortness of breath- Primary [id number] condition [facility] Diagnosis Chest pain, unspecified type- Primary [id number] condition [facility]* [...] Other bipolar disorders PELON (generalized anxiety disorder) ([facility]/HCC) Generalized anxiety disorder Screening for colon [...] long hauler manifesting chronic dyspnea Essential hypertension ([facility]/HCC) Unspecified essential hypertension Morbid obesity ([facility]/HCC) Morbid obesity PELON (generalized anxiety disorder) ([facility]) Generalized anxiety disorder Bipolar II disorder, most recent episode major depressive ([facility]/HCC) Other bipolar disorders Prediabetes- Primary Other abnormal glucose FELICE (obstructive sleep apnea) Obstructive sleep apnea (adult) (pediatric) Essential hypertension ([facility]) Unspecified essential hypertension Fibromyalgia Unspecified myalgia and myositis Edema of lower extremity Morbid obesity ([facility]/HCC) Morbid obesity Bipolar II disorder, most recent episode major depressive ([facility]/HCC) Other bipolar disorders PELON (generalized anxiety disorder) ([facility]) Generalized anxiety disorder Screening for colon cancer Special screening for malignant neoplasms, colon Gastroesophageal reflux disease, unspecified whether esophagitis present [facility] Diagnosis Essential hypertension (CMS/HCC)- Primary Unspecified essential hypertension Morbid obesity (CMS/HCC) Morbid obesity Anxiety Anxiety state, unspecified Unspecified mood (affective) disorder ([facility]) Encounter for screening mammogram for malignant neoplasm of breast- Primary Essential hypertension ([facility]/HCC) Unspecified essential hypertension Gout, arthritis Gouty arthropathy, unspecified Edema of lower extremity Prediabetes Other abnormal glucose Vitamin deficiency Unspecified vitamin deficiency Morbid obesity ([facility]/HCC) Morbid obesity Multiple joint pain Pain [...] of lower extremity [facility] encounter [facility] Healthcare[facility] noteNo assessment information availableGuern[facility] Work Phone: History general Narrative - Reported* Type Description Date Medical History Seasonal Allergies Medical History rheumatoid arthritis Surgical History C section X2 Hospitalization History see above [facility] Other History general Narrative - Reported* Type Description Date Medical History Seasonal Allergies Medical History rheumatoid arthritis Medical History neuropathy Surgical History C section X2 Hospitalization History Covid 2021 [facility] Other Summary Purpose Family History Relationship Condition [...] section and content) DATE CREATED AUTHOR 04/18/2019 [facility] DATE CREATED AUTHOR AUTHOR'S ORGANIZ ATION 12/17/2022 [facility] DATE CREATED AUTHOR AUTHOR'S ORGANIZ ATION 03/24/2023 [facility] DATE CREATED AUTHOR AUTHOR'S ORGANIZ ATION 04/21/2023 [facility] DATE CREATED AUTHOR AUTHOR'S ORGANIZ ATION 05/25/2023 [facility] DATE CREATED AUTHOR AUTHOR'S ORGANIZ ATION 09/08/2024 [facility] EPIC Reason for Visit (unrecogniz ed section and content) Reason Comments Shortness of breath Reason Comments Chest symptoms/complaints Reason Onset Date Comments Med Refill 12/20/2023 Reason Onset Date Comments Med Refill 08/24/2024 Reason Onset Date Comments Med Refill 09/07/2024 Reason Comments Med Refill Care Teams (unrecognized sec tion and content) Pharmacy Informaticist Relationship Specialty Start Date End Date Mahesh Rocha MD [address] [place] [phone] PCP - General Family Medicine 02/01/24 Melani Deras NP [address] [place] [phone] Nurse Practitioner Family Medicine 02/01/24 Pharmacy Informaticist Relationship Specialty Start Date End Date Mahesh Rocha MD [address] [place] [phone] PCP - General Family Medicine 02/01/24 Melani Deras NP [address] [place] [phone] Nurse Practitioner Family Medicine 02/01/24 Pharmacy Informaticist Relationship Specialty Start Date End Date Mahesh Rocha MD [address] [place] [phone] PCP - General Family Medicine 02/01/24 Melani Deras NP [address] [place] [phone] Nurse Practitioner Family Medicine 02/01/24 Pharmacy Informaticist Relationship Specialty Start Date End Date Mahesh Rocha MD [address] [place] [address] PCP - General Family Medicine 02/01/24 Melani Deras NP [address] [place] [phone] Nurse Practitioner Family Medicine 02/01/24 Team Status: [...] BE BASED ON THE PRIMARY CLINICAL RECORDS. [facility] [employer] [facility]. provides no warranty or guarantee of the accuracy or completeness of information in this document.
--- NOTE | 2024-10-23 19:31 | ED_ITS ---
HPI - Chest Pain General Chief Complaint: Chest Pain Stated Complaint: chest pain/palpitations Time Seen by Provider: 10/23/24 19:16 Source: patient Mode of arrival: walk-in Limitations: no limitations History of Present Illness HPI narrative: This 53-year-old who states she suffers from long COVID after having COVID 2 years ago presents for evaluation of chest tightness with intermittent shortness of breath and the feeling that her heart is out of rhythm. She states the symptoms started earlier today. She had some discomfort in her neck as well. She also had some left flank pain but states she went to the bathroom and urinated for a long time which seemed to relieve her pain. She has some mild nausea but no vomiting. She has no lower extremity pain or swelling. She denies any specific history of cardiac disease but states that she thinks she has it but nobody is doing anything about it. When she was admitted for COVID she did have an echocardiogram. She has never been told that she had myocar ditis but she thinks she probably did. She denies any fevers or chills. She denies any abdominal pain. Related Data Home Medications ?Medication ?Instructions ?Recorded ?Confirmed fluoxetine 40 mg capsule 40 mg PO DAILY 05/15/23 10/23/24 furosemide 20 mg tablet 10 mg PO DAILY 05/15/23 10/23/24 gabapentin 100 mg capsule 300 mg PO QPM 05/15/23 10/23/24 nabumetone 500 mg tablet 500 mg PO BID 05/15/23 10/23/24 pantoprazole 40 mg tablet,delayed 40 mg PO DAILY 05/15/23 10/23/24 release biotin 10,000 mcg capsule 10,000 mcg PO BID 06/16/24 10/23/24 magnesium oxide 400 mg (241.3 mg 400 mg PO QPM 06/16/24 10/23/24 magnesium) tablet modafinil 100 mg tablet (Provigil) 100 mg PO DAILY 06/16/24 10/23/24 montelukast 10 mg tablet 10 mg PO QPM 06/16/24 10/23/24 naltrexone 1.5 mg capsule 4 mg PO DAILY 06/16/24 10/23/24 amoxicillin 500 mg capsule 500 mg PO Q8H 10/23/24 10/23/24 aspirin 81 mg tablet,delayed 81 mg PO DAILY 10/23/24 10/23/24 release Previous Rx's ?Medication ?Instructions ?Recorded benzocaine 20 %-menthol 0.1 %-zinc 1 ea mucous membrane BID #5.1 grams 06/16/24 chloride 0.15 % mucosal gel (Orajel 3X Mouth Sores) nystatin 100,000 unit/gram topical 1 applic topical BID 2 weeks #30 10/15/24 powder grams Allergies Allergy/AdvReac Type Severity Reaction Status Date / Time influenza A (H1N1) virus Allergy Severe Anaphylaxis Verified 10/23/24 19:17 vaccine m-chani-split 2008 (From influenza A (H1N1)) Tetanus Vaccines and Toxoid Allergy Severe Anaphylaxis Verified 10/23/24 19:17 Review of Systems ROS Status of ROS 10 or more systems reviewed and unremark able except as noted in history and below [facility] Social History Smoking status: Never smoker Little interest or pleasure in doing things: not at all Feeling down, depressed, or hopeless: not at all Exam Narrative Exam Narrative: Vital signs and Nursing Notes reviewed: Patient is afebrile with a normal pulse, blood pressure is elevated at 174/68, she is not hypoxic with pulse ox of 97% on room air General: Awake, alert, oriented, overweight female, no acute distress, lying comfortably on the stretcher HEENT: Normocephalic atraumatic, mucous membranes are moist and pink, eyes are clear, normal conjunctiva, vision is grossly intact Neck: Supple, no meningeal signs, no anterior or posterior cervical lymphadenopathy Chest: Lungs are clear to auscultation with good air entry, there is no wheezing rhonchi or rales appreciated no accessory muscle use, patient is speaking in complete sentences-no chest wall tenderness to palpation CVS: Regular rate and rhythm [id number] PVCs noted, no murmurs rubs or gallops, pulses are brisk and equal bilaterally ABD: Soft, nondistended, nontender, no rebound guarding or rigidity, bowel sounds are normal, no pulsatile masses appreciated Extremities: Moving all extremities, no lower extremity tenderness or swelling noted, negative Homans' sign, pulses are brisk and equal bilaterally Skin: Normal in appearance without rash,pallor, petechiae or purpura Neuro: No focal deficits Constitutional Vital Signs, click to edit/add: Last Vital Signs Temp 98.2 F 10/23/24 19:12 Pulse 81 10/23/24 19:12 Resp 18 10/23/24 19:12 BP 174/68 H 10/23/24 19:12 Pulse Ox 97 10/23/24 19:12 O2 Del Method Room Air 10/23/24 19:12 Course Vital Signs Vital signs: Vital Signs Temperature 98.2 F 10/23/24 19:12 Pulse Rate 81 10/23/24 19:12 Respiratory Rate 18 10/23/24 19:12 Blood Pressure 174/68 H 10/23/24 19:12 Pulse Oximetry 97 10/23/24 19:12 Oxygen Delivery Method Room Air 10/23/24 19:12 Temperature 98.2 F 10/23/24 19:12 Pulse Rate 81 10/23/24 19:12 Respiratory Rate 18 10/23/24 19:12 Blood Pressure 174/68 H 10/23/24 19:12 Pulse Oximetry 97 10/23/24 19:12 Oxygen Delivery Method Room Air 10/23/24 19:12 MDM - Chest Pain MDM Narrative Medical decision making narrative: This 53-year-old female who states she suffers from long COVID after having COVID in 2021 presents for evaluation of chest discomfort with some radiation into her jaw and shortness of breath. She does not have a cardiac history. She thinks she may have sustained some cardiac injury from COVID. She was admitted to this hospital and states that she had an echocardiogram. I am unable to find that in our records. The patient states that she woke up around 10:00 and did not feel well with some chest discomfort and nausea. She ended up getting up around 130 and has not been feeling well since that time. She states she feels that her heart is out of rhythm. She has not had any dizziness or syncope. She is on antibiotics for a dental infection. She also has some mild nausea. She denies any abdominal pain. Upon arrival her blood pressure was noted to be mildly elevated but repeat blood pressure at this time is 129/71. She does take a daily baby aspirin. She was medicated with 324 mg baby aspirin in the emergency department and Zofran for her nausea. The patient states that she is gluten intolerant but for financial reasons she has been eating junk food for the past several weeks. A cardiac workup including CBC with differential, comprehensive metabolic profile, inflammatory markers of CRP and ESR troponin and D-dimer were ordered. Her labs are normal with very minimal elevation of the CRP and ESR. Urine is negative for infection. A repeat troponin will be ordered for completion purposes. She has been on the cardiac cath lab technologist without any ectopy or notable arrhythmia. Delta troponin is also normal at 5.4. The results of these findings were all discussed with the patient. She feels comfortable being discharged home. She will be discharged home with prescription for Zofran. She is now anxious to leave because her daughter is here and is her ride home. Lab Data Attestation: I reviewed the patient's lab results. Labs: Lab Results 10/23/24 10/23/24 10/23/24 Range/Units 19:26 20:45 21:06 WBC 6.7 (4.0-11.0) 10^3/uL RBC 3.96 L (4.20-5.40) 10^6/uL Hgb 12.2 (12.0-16.0) g/dL Hct 36.0 (36.0-48.0) % MCV 90.9 (81.0-99.0) fL MCH 30.8 (26.7-34.0) pg MCHC 33.9 (29.9-35.2) g/dL RDW 12.8 (11.0-15.0) % Plt Count 328 (150-450) 10^3/uL MPV 10.3 (9.5-13.5) fL Neut % (Auto) 46.6 (43.0-75.0) % Lymph % (Auto) 42.7 (20.5-60.0) % [place] % (Auto) 7.4 (1.7-12.0) % Eos % (Auto) 2.3 (0.9-7.0) % Baso % (Auto) 0.5 (0.2-2.0) % Neut # (Auto) 3.1 (1.4-6.5) 10^3/uL Lymph # (Auto) 2.8 (1.2-3.8) 10^3/uL [place] # (Auto) 0.5 (0.3-0.8) 10^3/uL Eos # (Auto) 0.2 (0.0-0.7) 10^3/uL Baso # (Auto) 0.0 (0.0-0.1) 10^3/uL Abs Immat Gran (auto) 0.03 (0.00-0.03) 10^3/uL Imm/Tot Granulo (auto) 0.5 (0.0-0.5) % ESR 22 (<=30) mm/hr D-Dimer 0.46 (<=0.59) mg/L FEU Sodium 140 (136-145) mmol/L Potassium 3.9 (3.5-5.1) mmol/L Chloride 104 (98-107) mmol/L Carbon Dioxide 28.1 (21.0-32.0) mmol/L Anion Gap 11.8 BUN 6.0 L (7.0-18.0) mg/dL Creatinine 0.83 (0.55-1.02) mg/dL Est GFR ( Amer) >60 (>=60 mL/min/1.73m^2) Est GFR (Non-Af Amer) >60 (>=60 mL/min/1.73m^2) BUN/Creatinine Ratio 7.2 Glucose 132 H (74-106) mg/dL Calcium 9.0 (8.5-10.1) mg/dL Total Bilirubin 0.3 (0.2-1.0) mg/dL AST 35 (15-37) U/L ALT 50 (14-59) U/L Alkaline Phosphatase 60 (46-116) U/L Troponin I High Sens 5.8 5.4 (4.0-51.3) pg/mL C-Reactive Protein 0.83 H (<=0.50) mg/dL Total Protein 7.0 (6.4-8.2) g/dL Albumin 3.5 (3.4-5.0) g/dL Globulin 3.5 g/dL Albumin/Globulin Ratio 1.0 Urine Color Lt. yellow (YELLOW) Urine Clarity Clear (CLEAR) Urine pH 6.0 (5.0-9.0) Ur Specific [place] 1.010 (1.005-1.025) Urine Protein Negative (NEG/TRACE) mg/dL Urine Glucose (UA) Negative (NEGATIVE) mg/dL Urine Ketones Negative (NEGATIVE) mg/dL Urine Occult Blood Negative (NEGATIVE) Urine Nitrite Negative (NEGATIVE) Urine Bilirubin Negative (NEGATIVE) Urine Urobilinogen 0.2 (0.2-1.0) EU/dL Ur Leukocyte Esterase Negative (NEGATIVE) ECG Data Attestation: I personally reviewed and interpreted this ECG as follows: (Sinus rhythm at 70 bpm, Q-wave noted in lead III, diffuse flattening of T waves, no acute ST segment elevation or T wave inversion) Heart Score History: Moderately Suspicious ECG: Normal Age: >45-<65 years Risk Factors: 1 or 2 Risk Factors Troponin: <Normal Limit Total Heart Score Recommendations & Risks:: 3 Discharge Plan Discharge Chief Complaint: Chest Pain Clinical Impression: Atypical chest pain, Nausea Patient Disposition: Home, Self-Care Time of Disposition Decision: 21:22 Condition: Good Prescriptions / Home Meds: No Action fluoxetine 40 mg capsule 40 mg PO DAILY pantoprazole 40 mg tablet,delayed release (DR/EC) 40 mg PO DAILY furosemide 20 mg tablet 10 mg PO DAILY gabapentin 100 mg capsule 300 mg PO QPM Rx Instructions: 100 am and 200mg at HS nabumetone 500 mg tablet 500 mg PO BID nystatin 100,000 unit/gram powder 1 applic topical BID 14 Days Qty: 30 0RF amoxicillin 500 mg capsule 500 mg PO Q8H aspirin 81 mg tablet,delayed release (DR/EC) 81 mg PO DAILY modafinil [Provigil] 100 mg tablet 100 mg PO DAILY magnesium oxide 400 mg (241.3 mg magnesium) tablet 400 mg PO QPM montelukast 10 mg tablet 10 mg PO QPM biotin 10,000 mcg capsule 10,000 mcg PO BID naltrexone 1.5 mg capsule 4 mg PO DAILY Orajel 3X Mouth Sores 20-0.1-0.15 % gel 1 ea mucous membrane BID Qty: 5.1 0RF Print Language: Libyan Instructions: Noncardiac Chest Pain (ED) Referrals: Melani Deras NP [Primary Care Provider] - 1 week
[2024-10-23 19:37] LABS: Basophils Percent Auto 0.5 % (0.2-2.0); Eosinophils Absolute Auto 0.2 10^3/uL (0.0-0.7); Eosinophils Percent Auto 2.3 % (0.9-7.0); Hemoglobin 12.2 g/dL (12.0-16.0); Immature Granulocytes Abs Auto 0.03 10^3/uL (0.00-0.03); Immature Granulocytes Pct Auto 0.5 % (0.0-0.5); Lymphocytes Absolute Auto 2.8 10^3/uL (1.2-3.8); Lymphocytes Percent Auto 42.7 % (20.5-60.0); Mean Corpuscular HGB Conc 33.9 g/dL (29.9-35.2); Mean Corpuscular Hemoglobin 30.8 pg (26.7-34.0); Mean Corpuscular Volume 90.9 fL (81.0-99.0); Mean Platelet Volume 10.3 fL (9.5-13.5); Monocytes Absolute Auto 0.5 10^3/uL (0.3-0.8); Monocytes Percent Auto 7.4 % (1.7-12.0); Neutrophils Absolute Auto 3.1 10^3/uL (1.4-6.5); Neutrophils Percent Auto 46.6 % (43.0-75.0); Platelet Count 328 10^3/uL (150-450); Red Blood Count 3.96 10^6/uL (4.20-5.40); Red Cell Distribution Width 12.8 % (11.0-15.0); White Blood Count 6.7 10^3/uL (4.0-11.0)
[2024-10-23 19:42] LABS: Erythrocyte Sedimentation Rate 22 mm/hr (<=30)
[2024-10-23] MEDS: ASPIRIN 81 MG TAB.CHEW 324 MG PO (19:43)
[2024-10-23] MEDS: ONDANSETRON PF 4 MG/2 ML VIAL IV (19:43)
[2024-10-23 19:56] LABS: Alanine Aminotransferase 50 U/L (14-59); Albumin Level 3.5 g/dL (3.4-5.0); Alkaline Phosphatase 60 U/L (46-116); Anion Gap 11.8; Aspartate Amino Transferase 35 U/L (15-37); BUN Creatinine Ratio 7.2; Bilirubin Total 0.3 mg/dL (0.2-1.0); Carbon Dioxide 28.1 mmol/L (21.0-32.0); Chloride 104 mmol/L (98-107); Estimated GFR (African America >60 (>=60 mL/min/1.73m^2); Estimated GFR (Non-African Ame >60 (>=60 mL/min/1.73m^2); Globulin 3.5 g/dL; Glucose 132 mg/dL (74-106); Potassium 3.9 mmol/L (3.5-5.1); Sodium 140 mmol/L (136-145)
[2024-10-23 19:57] LABS: D Dimer 0.46 mg/L FEU (<=0.59)
[2024-10-23 19:59] LABS: Troponin I High Sensitivity 5.8 pg/mL (4.0-51.3)
[2024-10-23 20:00] LABS: C Reactive Protein 0.83 mg/dL (<=0.50)
--- NOTE | 2024-10-23 20:02 | XR_ITS ---
The [address] [address] Patient Name: GREG FIELD MRN: [id number] date: 1970 Sex: F Assigned Patient Location: ER Current Patient Location: Accession/Order Number: [id number] Exam Date: 10/23/2024 20:09 Report Date: 10/23/2024 21:49 At the request of: NAUN MARKER Procedure: XR chest 1V EXAM: XR chest 1V , 10/23/2024 HISTORY: CP COMPARISON: Previous x-ray from 05/19/2024 TECHNIQUE: X-rays of the chest, portable upright AP view. FINDINGS: Borderline enlarged cardiac silhouette. No hilar or mediastinal enlargement. Low lung volumes. The lungs and left costophrenic angles are clear. No acute osseous findings. XR/XR chest 1V IMPRESSION: No acute cardiopulmonary findings. Electronically authenticated by: NICO BRADLEY Date: 10/23/2024 21:49
[2024-10-23] MEDS: KETOROLAC TROMETHAMINE 30 MG/ML VIAL IVP (21:04)
[2024-10-23 21:07] LABS: Troponin I High Sensitivity 5.4 pg/mL (4.0-51.3)
[2024-10-23 21:12] LABS: Bilirubin Urine NEGATIVE (NEGATIVE); Blood Urine NEGATIVE (NEGATIVE); Clarity Urine CLEAR (CLEAR); Color Urine LT. YELLOW (YELLOW); Glucose Urine UA NEGATIVE (NEGATIVE); Ketones Urine NEGATIVE (NEGATIVE); Leukocyte Esterase Urine NEGATIVE (NEGATIVE); Nitrite Urine NEGATIVE (NEGATIVE); Protein Urine NEGATIVE (NEG/TRACE); Urobilinogen Urine 0.2 EU/dL (0.2-1.0)
[2024-10-23 21:18] LABS: Bacteria Urine NONE SEEN #/HPF (NONE SEEN); Cast Seen? NONE SEEN #/LPF (NONE SEEN); Crystals Seen? None Seen #/HPF (None Seen); Mucus Urine NONE SEEN (NONE SEEN); RBC Urine 0-2 #/HPF (0-2); Squamous Epithelial Cell Urine NONE SEEN #/LPF (NONE/RARE); Urine Culture Indicated NO; WBC Urine NONE SEEN #/HPF (NONE SEEN)
--- NOTE | 2024-10-24 00:33 | ECG_ITS ---
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
== END 2024-10-23 21:43 | disposition home or self-care (01) ==
PROVIDERS: Emergency Provider Emergency Medicine; PCP Nurse Practitioner
DX: R07.89 Other chest pain (principal); R11.0 Nausea; Z86.16 Personal history of COVID-19; Z79.82 Long term (current) use of aspirin
CPT/HCPCS: 36415; 71045; 80053; 81001; 84484; 85025; 85378; 85652; 86140; 93005; 96374; 96375; 99285; J1885; J2405

== ENCOUNTER 2024-12-01 22:07 | Emergency (ER) | payer OTHER, SELFPAY ==
[2024-12-01 22:12] VITALS: BP 154/80; PULSE 83; TEMP 36.8; O2SAT 95; BMI 49.4
--- OUTSIDE RECORDS SUMMARY | 2024-12-01 22:14 | XMS_ITS | CCD ---
Author Organization [facility] Care Team Providers Care Solution Design Engineer Name Role Phone Unavailable Primary Care Provider UnavailSelene Garrison Unavailable Rose De Unavailable Unavailable Primary Care Provider UnavailRicardo Sands Attending Unavailable Ricardo Ricardo Admitting Unavailable NadMahesh walters Primary Care Unavailable Unavailable Primary Care Provider Unavailcolby hua AICHHOLZ, TEST BORING CREW CHIEF MELANI Primary Care Unavailable AICHHOLZ, TEST BORING CREW CHIEF MELANI Attending Unavailable AICHHOLZ, TEST BORING CREW CHIEF MELANI Admitting Unavailable AICHHOLZ, TEST BORING CREW CHIEF MELANI Consulting Unavailable AICHHOLZ, TEST BORING CREW CHIEF MELANI Consulting Unavailable AICHHOLZ, TEST BORING CREW CHIEF MELANI Attending Unavailable AICHHOLZ, TEST BORING CREW CHIEF MELANI Admitting Unavailable AICHHOLZ, TEST BORING CREW CHIEF MELANI Primary Care Unavailable AICHHOLZ, TEST BORING CREW CHIEF MELANI Primary Care Unavailable LEES ., DR YIMI Hua Attending Unavailable LEES ., DR YIMI Hua Admitting Unavailable LEES .DR YIMI Consulting Unavailable MARCOS NEWBERRY Consulting Unavailable SERAFIN, MELANI Consulting Unavailable VANESSA MARTINEZ Unavailable AICHHOLZ, TEST BORING CREW CHIEF MELANI Admitting Unavailable AICHHOLZ, TEST BORING CREW CHIEF MELANI Primary Care Unavailable AICHHOLZ, TEST BORING CREW CHIEF MELANI Attending Unavailable DR VANESSA PRESLEY V Consulting Unavailable AICHHOLZ, TEST BORING CREW CHIEF MELANI Consulting Unavailable AICHHOLZ, TEST BORING CREW CHIEF MELANI Admitting Unavailable AICHHOLZ, TEST BORING CREW CHIEF MELANI Primary Care Unavailable AICHHOLZ, TEST BORING CREW CHIEF MELANI Consulting Unavailable AICHHOLZ, TEST BORING CREW CHIEF MELANI Attending Unavailable AICHHOLZ, TEST BORING CREW CHIEF MELANI Attending Unavailable AICHHOLZ, TEST BORING CREW CHIEF MELANI Admitting Unavailable DR VANESSA PRESLEY V Consulting Unavailable AICHHOLZ, TEST BORING CREW CHIEF MELANI Primary Care Unavailable AICHHOLZ, TEST BORING CREW CHIEF MELANI Consulting Unavailable AICHHOLZ, TEST BORING CREW CHIEF MELANI Admitting Unavailable AICHHOLZ, TEST BORING CREW CHIEF MELANI Consulting Unavailable AICHHOLZ, TEST BORING CREW CHIEF MELANI Attending Unavailable AICHHOLZ, TEST BORING CREW CHIEF MELANI Primary Care Unavailable SAMSA ., SLADE Attending Unavailable SAMSA ., SLADE Admitting Unavailable AICHHOLZ, TEST BORING CREW CHIEF MELANI Primary Care Unavailable DR PASTOR ESPANA Consulting Unavailable SAMSA ., SLADE Consulting Unavailable AICHHOLZ, TEST BORING CREW CHIEF MELANI Admitting Unavailable AICHHOLZ, TEST BORING CREW CHIEF MELANI Consulting Unavailable AICHHOLZ, TEST BORING CREW CHIEF MELANI Attending Unavailable AICHHOLZ, TEST BORING CREW CHIEF MELANI Primary Care Unavailable AICHHOLZ, TEST BORING CREW CHIEF MELANI Primary Care Unavailable PAY ., DR BECK Attending Unavailable PAY ., DR BECK Admitting Unavailable PAY ., DR BECK Consulting Unavailable ANTONIA ., KARTHIKEYAN KLINE Consulting Unavailabl e AICHHOLZ, TEST BORING CREW CHIEF MELANI Primary Care Unavailable ANTONIA ., KARTHIKEYAN KLINE Consulting Unavailabl e LENIN ., ALEJANDRA Attending Unavailable LENIN ., ALEJANDRA Admitting Unavailable LENIN ., ALEJANDRA Admitting Unavailable AICHHOLZ, TEST BORING CREW CHIEF MELANI Primary Care Unavailable MARCOS NEWBERRY Consulting Unavailable LENIN ., ALEJANDRA Attending Unavailable LENIN ., ALEJANDRA Consulting Unavailable PROVIDER, UNKNOWN Attending Unavailable PROVIDER, UNKNOWN Admitting Unavailable PATIENT, SELF Referring Unavailable FRACISCO SKAGGS Attending Unavailable Unavailable Primary Care Provider Unavailcolby Rocha MD, Mahesh Primary Care Provider Aichholz BREAKFAST MANAGER, Melani Unavailable ELVIS BRONSON Attending Unavailable EBEN DUQUE [...] LORENZANA Attending Unavailable EDDY LORENZANA Referring Unavailable EDDY LORENZANA Attending Unavailable JACKIE GOODRICH Attending Unavailable AICHHOLZ, MELANI Referring Unavailable AICHHOLZ, MELANI Attending Unavailable EDDY LORENZANA Attending Unavailable AICHHOLZ, MELANI Attending Unavailable Allergies Allergy Classification Reported Allergen(s) Allergy Type Date of Onset Reaction(s) Facility (20 sources) Tetanus vaccine; Translations: [TETANUS TOXOIDS] Propensity to adverse reactions to drug [facility] ([facility] source) Allopurinol Drug Allergy 3 [facility] (1 source) TETANUS AND DIPHTHERIA TOXOIDS; Translations: [TETANUS AND DIPHTHERIA TOXOIDS] Propensity to adverse reactions to drug (disorder) 2 [facility] Medications Current Medications Medication Drug Class(es) Dates Sig (Normalized) Sig (Original) amoxicillin 500 mg oral capsule (1 source) Penicillin-class Antibacterial Start: 08-09-2024 End: 08-19-2024 take 1 capsule by mouth in the morning, then take 1 capsule by mouth in the evening, then take 1 capsule by mouth at bedtime amoxicillin (Amoxil) 500 MG capsule Indications: Dental infection Take 1 capsule (500 mg) by mouth in the morning and 1 capsule (500 mg) in the evening and 1 capsule (500 mg) before bedtime. Do all this for 10 days. 30 capsule 08/09/2024 08/19/2024 Active aspirin 81 mg delayed release oral tablet (20 sources) Platelet Aggregation Inhibitor, Nonsteroidal Anti-inflammatory Drug Start: 10-06-2024 take 1 tablet by mouth once daily Aspirin Low Dose 81 MG EC tablet Take 81 mg by mouth Daily 10/06/2024 Active Start: 09-20-2024 take 1 tablet by beth th once daily Aspirin 81 mg tablet,delayed release (DR/EC) Active 81 MG PO Daily September 20, 2024 12:00am Start: 08-07-2024 End: 09-06-2024 take 1 tablet by mouth once daily aspirin 81 MG EC tablet Indications: Prediabetes Take 1 tablet (81 mg) by mouth Daily 30 tablet 11 08/07/2024 09/06/2024 Active take 1 tablet by beth th once daily aspirin 81 MG enteric coated tablet Take 81 mg by mouth daily. Active Benadryl Allergy (2 sources) Benadryl Allergy Active biotin 10 mg oral capsule (15 sources) Start: 11-19-2024 End: 02-17-2025 take 3 capsules by mouth once daily biotin 10 MG capsule Indications: Lumbar radiculopathy , Idiopathic progressive neuropathy Take 10 capsules (100 mg) by mouth Daily 90 capsule 3 11/19/2024 02/17/2025 Active Start: 07-03-2024 End: 08-07-2024 take 1 capsule by mouth once daily biotin 10 MG capsule Indications: Idiopathic progressive neuropathy Take 1 capsule (10 mg) by mouth Daily 30 capsule 11 07/08/2024 08/07/2024 Active Start: 09-28-2023 End: 12-27-2023 take 1 capsule by mouth in the morning biotin 10 MG capsule Indications: Myalgia , Numbness and tingling , Weakness Take 1 capsule (10 mg) by mouth in the morning and 1 capsule (10 mg) before bedtime. 60 capsule 2 09/28/2023 12/27/2023 Active Blood Glucose Monitoring Suppl (True Metrix Air Glucose Meter) w/Device kit (15 sources) Start: 03-29-2024 Blood Glucose Monitoring Suppl (True Metrix Air Glucose Meter) w/Device kit 1 each by Other route Daily 03/29/2024 Active Blood Glucose Monitoring Suppl (True Metrix Meter) device (20 sources) Start: 03-27-2024 End: 03-27-2025 Blood Glucose Monitoring Suppl (True Metrix Meter) device Indications: Prediabetes 1 kit Daily 1 each 03/27/2024 03/27/2025 Active busPIRone hydrochloride 5 mg oral tablet (1 source) Start: 12-08-2021 take 1 tablet by mouth once daily Buspirone 5 mg tablet Active 5 MG PO Daily December 08, 2021 12:00am cefdinir 300 mg oral capsule (1 source) Cephalosporin Antibacterial Start: 12-08-2021 Cefdinir 300 mg capsule Active 300 MG [...] bedtime. 30 tablet 2 12/07/2023 03/06/2024 Active dexamethasone 2 mg oral tablet (6 sources) Corticosteroid Start: End: take 1 tablet by mouth in the morning dexAMETHasone (Decadron) 2 MG tablet Indications: Lumbar radiculopathy Take 1 tablet (2 mg) by mouth in the morning and 1 tablet (2 mg) in the evening. Take with meals. Do all this for 10 days. 20 tablet 1 10/28/2024 Active dicyclomine hydrochloride 10 mg oral capsule [...] by mouth in the morning. 0 Active [id number] 0.3 ml EPINEPHrine 1 mg/ml auto-injector (4 [...] mg tablet Active 150 MG PO Once December 08, 2021 12:00am Take on 12/08/21 if still having symptoms. FLUoxetine 40 mg oral capsule (20 sources) Serotonin Reuptake Inhibitor Start: End: take 1 capsule by mouth once daily FLUoxetine (PROzac) 40 MG capsule Indications: Anxiety Take 1 capsule (40 mg) by mouth Daily 90 capsule 11/17/2024 02/15/2025 Active Start: 06-19-2024 End: 10-01-2024 take 1 capsule by mouth once daily FLUoxetine (PROzac) 40 MG capsule Indications: Anxiety Take 1 capsule (40 mg) by mouth Daily 90 capsule 1 07/03/2024 Active Start: 12-08-2021 take 1 capsule by mo uth once daily Fluoxetine 20 mg capsule Active 20 MG PO Daily December 08, 2021 12:00am take 1 capsule by mo ut in the morning FLUoxetine (PROzac) 40 MG capsule Indications: Depressive Phase Bipolar Mood Disorder Take 40 mg by mouth in the morning. 0 Active PROzac Active furosemide 20 mg oral tablet (20 sources) Loop Diuretic Start: 09-10-2024 End: 12-14-2024 take 1 tablet by mouth once daily as needed furosemide (Lasix) 20 MG tablet Indications: Edema of lower extremity Take 1 tablet (20 mg) by mouth Daily as needed (swelling in hands or feet) 30 tablet 2 11/14/2024 12/14/2024 Active Start: 05-21-2024 take 1 tablet by beth th once [...] Lasix Active gabapentin 100 mg oral capsule (20 sources) Anti-epileptic Agent Start: 11-15-2024 take 2 capsules by mouth in the morning, then take 2 capsules by mouth in the evening, then take 2 capsules by mouth at bedtime gabapentin (Neurontin) 100 MG capsule Indications: Idiopathic progressive neuropathy Take 2 capsules by mouth in the morning and 2 capsules in the evening and 2 capsules before bedtime. 180 capsule 1 11/15/2024 Active Start: 09-06-2024 End: 10-06-2024 take 2 capsules by mouth in the morning, then take 2 capsules by mouth in the evening, then take 2 capsules by mouth at bedtime gabapentin (Neurontin) 100 MG capsule Indications: Neuropathic Pain Take 2 capsules (200 mg) by mouth in the morning and 2 capsules (200 mg) in the evening and 2 capsules (200 mg) before bedtime. 180 capsule 2 09/06/2024 Active Start: 07-03-2024 End: 08-02-2024 take 3 capsules by mouth at bedtime as needed, then take 3 capsules by mouth once daily as needed gabapentin (Neurontin) 100 MG capsule Indications: Neuropathic Pain Take 3 capsules (300 mg) by mouth at bedtime Pt can take up to 3 capsules (300MG) PRN nightly 90 capsule 2 07/03/2024 Active take 1 capsule by mo uth at bedtime gabapentin (Neurontin) 100 MG capsule Indications: Neuropathic Pain Take 100 mg by mouth at bedtime. 0 Active Gabapentin Activ e Gelatin Capsules (Empty) (Capsule #3) capsule (1 source) Start: 09-20-2024 Gelatin Capsules (Empty) (Capsule #3) capsule Active CAP PO September 20, 2024 12:00am Gelatin Capsules, Empty, (Empty Capsule Size 3 Union/Clr) capsule (20 sources) Start: 01-30-2024 Gelatin Capsules, Empty, (Empty Capsule Size 3 Union/Clr) capsule 01/30/2024 Active hydrOXYzine hydrochloride 25 mg [...] Active magnesium oxide 400 mg oral tablet (20 sources) Start: 09-28-2023 End: 12-19-2024 take 1 tablet by mouth once daily magnesium oxide (Mag-Ox) 400 (240 Mg) MG tablet Take 400 mg by mouth Daily 10/01/2024 Active 24 hr metFORMIN hydrochloride 500 mg [...] Ac tive modafinil 100 mg oral tablet (20 sources) Sympathomimetic-like Agent Start: 09-20-2024 take 1 tablet by mouth once daily Modafinil 100 mg tablet Active 100 MG PO Daily September 20, 2024 12:00am Start: 09-06-2024 End: 10-06-2024 take 1 tablet by mouth once daily modafinil (Provigil) 200 MG tablet Indications: FELICE (obstructive sleep apnea) Take 1 tablet (200 mg) by mouth Daily 30 tablet 2 09/06/2024 Active Start: 07-03-2024 End: 08-02-2024 take 1 tablet by mouth once daily modafinil (Provigil) 100 MG tablet Indications: FELICE (obstructive sleep apnea) Take 1 tablet (100 mg) by mouth Daily 30 tablet 2 07/03/2024 Active montelukast 10 mg oral tablet (20 sources) Leukotriene Receptor Antagonist Start: 12-22-2023 End: 12-21-2024 take 1 tablet by mouth at bedtime montelukast (Singulair) 10 MG tablet Indications: Idiopathic progressive neuropathy Take 1 tablet (10 mg) by mouth at bedtime 30 tablet 11 12/22/2023 12/21/2024 Active nabumetone 500 mg oral tablet (20 sources) Nonsteroidal Anti-inflammatory Drug Start: 07-30-2024 End: 12-14-2024 take 1 tablet by mouth twice daily as needed for pain nabumetone (Relafen) 500 MG tablet Indications: Fibromyalgia Take 1 tablet (500 mg) by mouth 2 (two) times a day as needed for moderate pain 60 tablet 2 11/14/2024 12/14/2024 Active Start: 12-11-2023 End: 01-10-2024 take 1 tablet by mouth twice daily as needed for pain nabumetone (Relafen) 500 MG tablet Indications: Other chronic pain Take 1 tablet (500 mg) by mouth 2 (two) times a day as needed for moderate pain 60 tablet 1 12/11/2023 01/10/2024 Active Start: 12-08-2021 take 1 tablet by beth th once daily Nabumetone 500 mg tablet Active 500 MG PO Daily December 08, 2021 12:00am Nabumetone Activ e Nabumetone Not-T aking Naltrexone (4 sources) Opioid Antagonist Start: 12-06-2023 End: 01-05-2024 Naltrexone HCl powder Indications: Idiopathic progressive neuropathy , Weakness 3 mg at bedtime 30 g 11 12/06/2023 01/05/2024 Active nystatin [id number] unt/ml oral suspension (2 sources) Polyene Antifungal Start: 05-31-2022 take 4 mL by mouth four times daily Nystatin [id number] UNIT/ML 4 ml swish and spit Mouth/Throat Four times a day for 14 days May, Active Start: 12-08-2021 take 1 mL by mouth t hree times daily Nystatin 100,000 unit/mL suspension Active 1 ML PO Three times daily December 08, 2021 12:00am ondansetron 4 mg oral tablet (8 sources) Serotonin-3 Receptor Antagonist Start: 10-25-2024 take 1 tablet by mouth every six hours as needed for nausea and vomiting ondansetron (Zofran) 4 MG tablet Take 4 mg by mouth every 6 (six) hours if needed for nausea or vomiting 10/25/2024 Active pantoprazole 40 mg delayed release oral tablet (20 sources) Proton Pump Inhibitor Start: 09-09-2024 End: 12-17-2024 take 1 tablet by mouth before mealtime pantoprazole (ProtoNix) 40 MG EC tablet Indications: Gastroesophageal reflux disease, unspecified whether esophagitis present Take 1 tablet (40 mg) by mouth in the morning. Take before meals. 30 tablet 2 11/17/2024 12/17/2024 Active Start: 07-08-2024 End: 08-07-2024 take 1 tablet by mouth before mealtime pantoprazole (ProtoNix) 40 MG EC tablet Indications: Gastroesophageal reflux disease, unspecified whether esophagitis present Take 1 tablet (40 mg) by mouth in the morning. Take before meals. 30 tablet 2 07/08/2024 Active Start: 03-10-2024 take 1 tablet by beth th before mealtime pantoprazole (ProtoNix) 40 MG EC tablet Indications: Gastroesophageal reflux disease, unspecified whether esophagitis present Take 1 tablet (40 mg) by mouth in the morning. Take before meals. 30 tablet 2 03/10/2024 Active Protonix Active Pantoprazole 40 mg tablet,delayed [...] 1.5 mg/ml oral solution (3 sources) Uncompetitive G-ahiiok-O-aspartate Receptor Antagonist, Sigma-1 Agonist Start: 06-26-2021 [place]well DM 7.5-7.5 MG/5ML 10 ml Orally every [...] request of Phys. EHR Cmte Anxiety disorders (20 sources) Anxiety; Translations: [Anxiety disorder, unspecified] Onset: 05-19-2022 01-10-2022 Chronic Asthma (20 sources) Asthma; Translations: [Unspecified asthma, uncomplicated] Onset: 11-28-2023 11-28-2023 Chronic Disorders of teeth and jaw (20 sources) Infection of tooth; Translations: [Periapical abscess without sinus] Onset: 08-09-2024 Resolved: 10-28-2024 08-09-2024 Episodic Esophageal disorders (20 sources) Gastroesophageal reflux disease; Translations: [Gastro-esophageal reflux disease without esophagitis] Onset: 03-14-2019 09-26-2023 Chronic Essential hypertension (20 sources) Essential (primary) hypertension; Translations: [Essential hypertension] Onset: 03-14-2019 09-26-2023 Chronic Genitourinary symptoms and ill-defined conditions (3 sources) Unspecified symptoms and signs involving the genitourinary system; Translations: [UNS SYMPTOMS SIGNS INVLV SYSTEM] Onset: 01-23-2023 Episodic Gout and other crystal arthropathies (1 source) Gout, unspecified; Translations: [GOUT UNSPECIFIED] Onset: 01-25-2023 Chronic Joint disorders and dislocations; trauma-related (20 sources) Chondromalacia of left patella; Translations: [Chondromalacia patellae, left knee] Onset: 09-26-2023 09-26-2023 Chronic Malaise and fatigue (1 source) Chronic fatigue, unspecified; Translations: [CHRONIC FATIGUE UNSPECIFIED] Onset: 01-25-2023 Chronic Mood disorders (20 sources) Bipolar II disorder, most recent episode major depressive; Translations: [Bipolar II disorder] Onset: 03-14-2019 07-24-2023 Chronic Nonspecific chest pain (15 sources) Chest pain; Translations: [Chest pain, unspecified] Onset: 07-05-2022 Episodic Nutritional deficiencies (2 sources) Vitamin D deficiency, unspecified; Translations: [Vitamin D deficiency, unspecified] Onset: 05-23-2023 Chronic Osteoarthritis (20 sources) Osteoarthrosis of the carpometacarpal joint of the thumb; Translations: [Osteoarthritis of first carpometacarpal joint, unspecified] Onset: 03-14-2019 09-26-2023 Chronic Osteoporosis (2 sources) Postmenopausal osteoporosis; Translations: [Age-related osteoporosis without current pathological fracture] 07-10-2024 Chronic Other aftercare (1 source) Other termite control technician (current) drug therapy; Translations: [OTH ALF CURRENT DRUG THERAPY] Onset: 01-25-2023 Episodic Other aftercare (1 source) terminal makeup operator (current) use of oral hypoglycemic drugs; Translations: [ALF USE ORAL HYPOGLYCEMIC DX] Onset: 01-25-2023 Episodic Other and ill-defined heart disease (20 sources) Cardiomegaly; Translations: [Cardiomegaly] Onset: 02-05-2024 02-05-2024 Chronic Other bone disease and musculoskeletal deformities (1 source) Cartilage disorder; Translations: [Disorder of cartilage, unspecified] 09-20-2024 Episodic Other connective tissue disease (2 sources) Cramp; Translations: [Cramp and spasm] Onset: 12-21-2023 12-21-2023 Episodic Comment on above: Problem List clean-u p per request of Phys. 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 condition] Chronic Other infections; including parasitic (20 sources) Late effects of other and unspecified infectious and parasitic diseases; Translations: [COVID-19 long hauler] Onset: 02-05-2024 02-05-2024 Chronic Other liver diseases (20 sources) Steatosis of liver; Translations: [Fatty (change of) liver, not elsewhere classified] Onset: 02-05-2024 02-05-2024 Chronic Other lower respiratory disease (1 source) Dyspnea; Translations: [Shortness of breath] Episodic Other nervous system disorders (4 sources) Chronic pain; Translations: [Other chronic pain] Onset: 09-26-2023 09-26-2023 Chronic Other nervous system disorders (20 sources) Neuropathy; Translations: [Idiopathic progressive neuropathy] Onset: 09-28-2023 09-28-2023 Chronic Other nutritional; endocrine; and metabolic disorders (1 source) Morbid (severe) obesity due to excess calories; Translations: [MORBID SEVERE OBES D/T EXCESS ELENA] Onset: 01-25-2023 Chronic Other nutritional; endocrine; and metabolic disorders (1 source) Body mass index (BMI) 45.0-49.9, adult; Translations: [BODY MASS INDEX BMI 45.0-49.9 ADULT] Onset: 01-25-2023 Chronic Other nutritional; endocrine; and metabolic disorders (20 sources) Morbid obesity; Translations: [Morbid (severe) obesity due to excess calories] Onset: 03-14-2019 09-26-2023 Chronic Other skin disorders (1 source) Localized swelling, mass and lump, neck; Translations: [LOCALIZED SWELLING MASS AND LUMP NECK] Onset: 01-16-2023 Episodic Other upper respiratory disease (9 sources) Seasonal allergy; Translations: [Other seasonal allergic rhinitis] Onset: 10-28-2024 09-20-2024 Chronic Residual codes; unclassified (4 sources) Obstructive sleep apnea (adult) (pediatric); Translations: [OBSTRUCTIVE SLEEP APNEA] Onset: 07-19-2022 Chronic Residual codes; unclassified (1 source) Idiopathic hypersomnia with long sleep time; Translations: [IDIO HYPERSOMNIA W/LONG SLEEP TIME] Onset: 07-24-2022 Chronic Residual codes; unclassified (20 sources) Obstructive sleep apnea syndrome; Translations: [Obstructive sleep apnea (adult) (pediatric)] Onset: 02-05-2024 02-05-2024 Chronic Residual codes; unclassified (1 source) Body fluid retention; Translations: [Edema, unspecified] 09-20-2024 Episodic Rheumatoid arthritis and related disease (9 sources) Rheumatoid arthritis; Translations: [Rheumatoid arthritis, unspecified] Onset: 10-28-2024 09-20-2024 Chronic Spondylosis; intervertebral disc disorders; other back problems (20 sources) Sciatica, left side; Translations: [Lumbar radiculopathy] [...] Da te Episodic/Chronic Diabetes mellitus without complication (20 sources) Hyperglycemia, unspecified; Translations: [Prediabetes] Onset: 03-14-2019 Episodic Fluid and electrolyte disorders (2 sources) Hypokalemia; Translations: [Dehydration] Onset: 07-04-2022 Episodic Immunizations and screening for infectious disease (20 sources) Contact with and (suspected) exposure to other viral communicable diseases; Translations: [Raised antinuclear antibody] Onset: 09-10-2021 Resolved: 09-10-2021 Episodic Joint disorders and dislocations; trauma-related (20 sources) Tear of medial meniscus of knee; Translations: [Other tear of medial meniscus, current injury, left knee, initial encounter] Onset: 03-14-2019 09-26-2023 Episodic Malaise and fatigue (20 sources) Weakness; Translations: [Other fatigue] Onset: 05-04-2022 Episodic Mycoses (1 source) Candidal stomatitis Onset: 05-31-2022 Resolved: 05-31-2022 Episodic Nutritional deficiencies (20 sources) Vitamin deficiency; Translations: [Vitamin deficiency, unspecified] Onset: 05-09-2024 08-25-2024 Episodic Other aftercare (1 source) custodial (current) use of aspirin; Translations: [MOTOR TEACHER CURRENT USE OF ASPIRIN] Onset: 07-04-2022 Episodic Other connective tissue disease (20 sources) Muscle pain; Translations: [Myalgia, unspecified site] Onset: 09-28-2023 09-28-2023 Episodic Other connective tissue disease (20 sources) Fibromyalgia; Translations: [Fibromyalgia] Onset: 09-26-2023 04-01-2024 Episodic Other female genital disorders (20 sources) Lesion of cervix; Translations: [Noninflammatory disorder of cervix uteri, unspecified] Onset: 03-14-2019 09-26-2023 Episodic Other female genital disorders (20 sources) Stenosis of cervix; Translations: [Stricture and stenosis of cervix uteri] Onset: 02-05-2024 02-05-2024 Episodic Other gastrointestinal disorders (4 sources) Change in bowel habit; Translations: [CHANGE IN BOWEL HABIT] Onset: 06-04-2022 Episodic Other injuries and conditions due to external causes (20 sources) At low risk for fall; Translations: [History of falling] Onset: 03-14-2019 Resolved: 05-09-2024 09-26-2023 Episodic Other lower respiratory disease (4 sources) Other nonspecific abnormal finding of lung field; Translations: [OTH NONSPECIFIC ABN FIND LNG FIELD] Onset: 08-09-2022 Episodic Other lower respiratory disease (5 sources) Dyspnea, unspecified; Translations: [DYSPNEA UNSPECIFIED] Onset: 07-11-2022 Episodic Other lower respiratory disease (20 sources) Other forms of dyspnea; Translations: [Other respiratory abnormalities] Onset: 12-21-2023 12-21-2023 Episodic Comment on above: Problem List clean-u p per request of Phys. EHR Cmte Other nervous system disorders (4 sources) Paresthesia of skin; Translations: [PARESTHESIA OF SKIN] Onset: 06-30-2022 Episodic Other nervous system disorders (20 sources) Numbness and tingling sensation of skin; Translations: [Anesthesia of skin] Onset: 09-28-2023 09-28-2023 Episodic Other non-traumatic joint disorders (4 sources) Hip pain; Translations: [Pain in unspecified hip] Onset: 03-14-2019 09-26-2023 Episodic Other non-traumatic joint disorders (20 sources) Multiple joint pain; Translations: [Pain in unspecified joint] Onset: 03-14-2019 09-26-2023 Episodic Other non-traumatic joint disorders (20 sources) Pain in left knee; Translations: [Pain in joint, lower leg] Onset: 09-26-2023 09-26-2023 Episodic Other screening for suspected conditions (not mental disorders or infectious disease) (20 sources) Patient encounter status; Translations: [Encounter for screening mammogram for malignant neoplasm of breast] Onset: 05-09-2024 05-09-2024 Episodic Other upper respiratory infections (1 source) Acute sinusitis, unspecified; Translations: [Acute sinusitis, recurrence not specified, unspecified location J01.90] Onset: 09-10-2021 Resolved: 09-10-2021 Episodic Ovarian cyst (20 sources) Cyst of ovary; Translations: [Unspecified ovarian cyst, unspecified side] Onset: 02-05-2024 02-05-2024 Episodic Residual codes; unclassified (20 sources) Edema of lower extremity; Translations: [Localized edema] Onset: 03-14-2019 09-26-2023 Episodic Residual codes; unclassified (20 sources) Cancer cervix screening - not needed; Translations: [Procedure and treatment not carried out for other reasons] Onset: 05-09-2024 Resolved: 05-09-2024 05-09-2024 Episodic Suicide and intentional self-inflicted injury (20 sources) Suicide attempt ; Translations: [Suicide attempt, initial encounter] Onset: 02-05-2024 Resolved: 05-09-2024 05-09-2024 Episodic Unclassified (1 source) Persistent cough for 3 weeks or longer R05.3 Onset: 05-31-2022 Resolved: 05-31-2022 Viral infection (20 sources) COVID-19; Translations: [Other specified viral infection] Onset: 02-05-2024 Resolved: 02-05-2024 02-05-2024 Episodic Results Test Name Value Interpretation Reference Range Facility HbA1c (Bld) [Mass fraction]o n 10-28-2024 Interpretation and review of laboratory results Abnormal [facility] H[facility] Cell count[facility] 10-28-2024 HbA1c (Bld) [Mass fraction] 6.2 % [facility] IGP,APTIMA HPV,AGE GDLNon AGE GDLN ACOG TESTING Note . [facility] Comment on above: TESTS RESULT FLAG UN ITS REF RANGE LAB Clinician Provided Cytology Information Source.............Cervix;Endocervix No. of containers..01 ThinPrep Vial Age Algo ACOG Emy... 30-65 01 FLAG LEGEND: L-Low Normal,H-High Normal,LL-Alert Low,HH-Alert High <-Panic Low,>-Panic High,A-Abnormal,AA-Critical Abnormal Performed at: 01 =[address] [place] [address] Deirdre Byrnes MD, HPV APTIMA Negative Negative [facility] Comment on above: This nucleic acid am plification test detects fourteen high- risk HPV types (16,18,31,33,35,39,45,51,52,56,58,59,66,68) without differentiation. Performed at: = - [address] [id number] Cellar Packer: Deirdre Byrnes MD, Phone: [phone] Performed at: - [address], [place] [id number] Cellar Packer: Deirdre Byrnes MD, Phone: [phone] IGP, APTIMA HPV, RFX 16/18,45 Note . [facility] Comment on above: TESTS RESULT FLAG UN ITS REF RANGE LAB DIAGNOSIS: 02 NEGATIVE FOR INTRAEPITHELIAL LESION OR MALIGNANCY. Specimen adequacy: 02 Satisfactory for evaluation. No endocervical component is identified. Performed by: Davida Valentine, Roller Setter ([facility]) . 02 Note: Note 02 The Pap smear is a screening test designed to aid in the detection of premalignant and malignant conditions of the uterine cervix. It is not a diagnostic procedure and should not be used as the sole means of detecting cervical cancer. Both false-positive and false-negative reports do occur. Test Methodology: Note 02 This liquid based ThinPrep(R) pap test was screened with the use of an image guided system. HPV Genotype Reflex Note 02 Criteria not met, HPV Genotype not performed. FLAG LEGEND: L-Low Normal,H-High Normal,LL-Alert Low,HH-Alert High <-Panic Low,>-Panic High,A-Abnormal,AA-Critical Abnormal Performed at: 02 [facility] [address] [place] [address] Deirdre Byrnes MD, BRUSH-SPATULA CERVIX ENDOCERVIX [facility] BI MAMMOGRAM SCREENING TOMOS YNTHESIS BILATERALon 05-28-2024 BI MAMMOGRAM SCREENING TOMOSYNTHESIS BILATERAL [...] IS VERY IMPORTANT TO YOUR HEALTH. THE [place] [employer] GUIDELINES RECOMMEND THAT WOMEN 40 [...] MD Normal Not Available Follow-Upon 05-23-2023 Follow-Up [id number] Lu Cancino 1970 F Date Provider Department Center 05/23/2023 [facility] Joselito Heal Family History Family history unknown: Yes Level of Service:96810 [place] OFFICE/OUTPATIENT ESTABLISHED MOD [facility] 30-39 MIN Reason for Visit and Comments: Follow-up [714549] - Flare up Normal [facility] XR KUB 1 VIEWon 03-22-2023 XR KUB [...] VANESSA PRESLEY Date: 2023-03-22 07:45 Normal [facility] UA RANDOM W/MICROSCOPICon BACTERIA TRACE Abnormal NONE SEEN [facility] Comment on above: Performed By: #### U AMIC #### [facility] [address] [place] [address] Dr. Bertram Paulino Bilirubin Ql (U) Negative Normal NEGATIVE [facility] Comment on above: Performed By: #### U AMIC #### [facility] [address] [place] [address] Dr. Bertram Paulino CAST NONE SEEN Normal NONE SEEN [facility] Comment on above: Performed By: #### U AMIC #### [facility] [address] [place] [address] Dr. Bertram Paulino Clarity (U) CLEAR Normal CLEAR [facility] Comment on above: Performed By: #### U AMIC #### [facility] [address] [place] [address] Dr. Bertram Paulino Color (U) LT. YELLOW Normal YELLOW [facility] Comment on above: Performed By: #### U AMIC #### [facility] [address] [place] [address] Dr. Bertram Paulino Crystals LM Nom (Urine sed) NONE SEEN Normal NONE SEEN [facility] Comment on above: Performed By: #### U AMIC #### [facility] [address] [place] [address] Dr. Bertram Paulino Epithelial cells LM Ql (Urine sed) RARE Normal NONE SEEN /RARE [facility] Comment on above: Performed By: #### U AMIC #### [facility] [address] [address] [address] Bertram Paulino Glucose Ql (U) Negative Normal NEGATIVE [facility] Comment on above: Performed By: #### U AMIC #### [facility] [address] [address] [address] Bertram Paulino Hemoglobin Ql (U) Negative Normal NEGATIVE [facility] Comment on above: Performed By: #### U AMIC #### [facility] [address] [address] [address] Bertram Paulino Ketones Ql (U) Negative Normal NEGATIVE [facility] Comment on above: Performed By: #### U AMIC #### [facility] [address] [address] [address] Bertram Paulino LEUKOCYTES Negative Normal NEGATIVE [facility] Comment on above: Performed By: #### U AMIC #### [facility] [address] [address] [address] Bertram Paulino MUCOUS NONE SEEN Normal NONE SEEN [facility] Comment on above: Performed By: #### U AMIC #### [facility] [address] [address] [address] Bertram Paulino Nitrite Ql (U) Negative Normal NEGATIVE [facility] Comment on above: Performed By: #### U AMIC #### [facility] [address] [address] [address] Bertram Paulino pH (U) 8.5 [pH] Normal 5-9 [facility] Comment on above: Performed By: #### U AMIC #### [facility] [address] [address] [address] Bertram Paulino RBC 0-2 Normal 0-2 [facility] Comment on above: Performed By: #### U AMIC #### [facility] [address] [address] [address] Bertram Paulino SPEC GRAVITY 1.015 Normal 1.005-<=1.025 [facility] Comment on above: Performed By: #### U AMIC #### [facility] [address] [address] [address] Bertram Paulino UA PROTEIN Negative Normal NEGATIVE/ TRACE [facility] Comment on above: Performed By: #### U AMIC #### [facility] [address] [place] [address] Dr. Bertram Paluino Urobilinogen Qn (U) 0.2 {Yazmin'U}/dL Normal 0.2 - 1. 0 [facility] Comment on above: Performed By: #### U AMIC #### [facility] [address] [place] [address] Dr. Bertram Paulino WBC NONE SEEN Normal NONE SEEN [facility] Comment on above: Performed By: #### U AMIC #### [facility] [address] [place] [address] Dr. Bertram Paulino CBC AUTO DIFFon 01-23-2023 BASO # 0.0 103/ul Normal 0.0-0.1 [facility] Comment on above: Performed By: #### C MP, LIPID, TSH #### [facility] [address] [place] [address] Dr. Bertram Paulino Basophils/100 WBC (Bld) 0.5 % Normal 0.2-2.0 [facility] Comment on above: Performed By: #### C MP, LIPID, TSH #### [facility] [address] [place] [address] Dr. Bertram Paulino EO # 0.1 103/ul Normal 0.0-0.7 [facility] Comment on above: Performed By: #### C MP, LIPID, TSH #### [facility] [address] [place] [address] Dr. Bertram Paulino Eosinophils/100 WBC (Bld) 1.2 % Normal 0.9-7.0 [facility] Comment on above: Performed By: #### C MP, LIPID, TSH #### [facility] [address] [place] [address] Dr. Bertram Paulino Erythrocyte distribution width (RBC) [Ratio] 12.8 % Normal 11.0-15.0 [facility] Comment on above: Performed By: #### C MP, LIPID, TSH #### [facility] [address] [address] [address] Bertram Paulino Hematocrit (Bld) [Volume fraction] 38.9 % Normal 36.0-48.0 [facility] Comment on above: Performed By: #### C MP, LIPID, TSH #### [facility] [address] [address] [address] Bertram Paulino Hemoglobin (Bld) [Mass/Vol] 13.3 g/dL Normal 12.0-16.0 [facility] Comment on above: Performed By: #### C MP, LIPID, TSH #### [facility] [address] [place] [address] Dr. Bertram Paulino IG # 0.04 10e3/ul Critically high 0.00-0.03 [facility] Comment on above: Performed By: #### C MP, LIPID, TSH #### [facility] [address] [place] [address] Dr. Bertram Paulino IG % 0.5 % Normal 0.0-0.5 [facility] Comment on above: Performed By: #### C MP, LIPID, TSH #### [facility] [address] [place] [address] Dr. Bertram Paulino LYMPH # 1.9 103/ul Normal 1.2-3.8 [facility] Comment on above: Performed By: #### C MP, LIPID, TSH #### [facility] [address] [place] [address] Dr. Bertram Paulino Lymphocytes/100 WBC (Bld) 24.7 % Normal 20.5-60.0 [facility] Comment on above: Performed By: #### C MP, LIPID, TSH #### [facility] [address] [place] [address] Dr. Bertram Paulino MANUAL DIFF REQ NO Normal [facility] Comment on above: Performed By: #### C MP, LIPID, TSH #### [facility] [address] [place] [address] Dr. Bertram Paulino MCH (RBC) [Entitic mass] 30.0 pg Normal 26.7-34.0 [facility] Comment on above: Performed By: #### C MP, LIPID, TSH #### [facility] [address] [place] [address] Dr. Bertram Paulino MCHC (RBC) [Mass/Vol] 34.2 g/dL Normal 29.9-35.2 [facility] Comment on above: Performed By: #### C MP, LIPID, TSH #### [facility] [address] [place] [address] Dr. Bertram Paulino MCV (RBC) [Entitic vol] 87.6 fL Normal 81.0-99.0 [facility] Comment on above: Performed By: #### C MP, LIPID, TSH #### [facility] [address] [place] [address] Dr. Bertram Paulino MONO # 0.4 103/ul Normal 0.3-0.8 [facility] Comment on above: Performed By: #### C MP, LIPID, TSH #### [facility] [address] [place] [address] Dr. Bertram Paulino Monocytes/100 WBC (Bld) 5.3 % Normal 1.7-12.0 [facility] Comment on above: Performed By: #### C MP, LIPID, TSH #### [facility] [address] [place] [address] Dr. Bertram Paulino NEUT # 5.1 103/ul Normal 1.4-6.5 [facility] Comment on above: Performed By: #### C MP, LIPID, TSH #### [facility] [address] [place] [address] Dr. Bertram Paulino Neutrophils/100 WBC (Bld) 67.8 % Normal 43.0-75.0 [facility] Comment on above: Performed By: #### C MP, LIPID, TSH #### [facility] [address] [place] [address] Dr. Bertram Paulino Platelet mean volume (Bld) [Entitic vol] 10.7 fL Normal 9.5-13.5 [facility] Comment on above: Performed By: #### C MP, LIPID, TSH #### [facility] [address] [place] [address] Dr. Bertram Paulino PLT 270 103/ul Normal 150-450 [facility] Comment on above: Performed By: #### C MP, LIPID, TSH #### [facility] [address] [place] [address] Dr. Bertram Paulino RBC 4.44 106/ul Normal 4.20-5.40 [facility] Comment on above: Performed By: #### C MP, LIPID, TSH #### [facility] [address] [place] [address] Dr. Bertram Paulino WBC 7.5 103/ul Normal 4.0-11.0 [facility] Comment on above: Performed By: #### C MP, LIPID, TSH #### [facility] [address] [place] [address] Dr. Bertram Paulino ER URINE PROFILEon 3 Bilirubin Ql (U) Negative Normal NEGATIVE [facility] Comment on above: Performed By: #### C MP, LIPID, TSH #### [facility] [address] [place] [address] Dr. Bertram Paulino Clarity (U) CLEAR Normal CLEAR [facility] Comment on above: Performed By: #### C MP, LIPID, TSH #### [facility] [address] [place] [address] Dr. Bertram Paulino Color (U) LT. YELLOW Normal YELLOW [facility] Comment on above: Performed By: #### C MP, LIPID, TSH #### [facility] [address] [place] [address] Dr. Bertram PANIAGUAAHKaran A micrscopic examination will be performed if indicated. Normal [facility] Comment on above: Performed By: #### C MP, LIPID, TSH #### [facility] [address] [place] [address] Dr. Bertram Paulino Glucose Ql (U) Negative Normal NEGATIVE [facility] Comment on above: Performed By: #### C MP, LIPID, TSH #### [facility] [address] [place] [address] Dr. Bertram Paulino Hemoglobin Ql (U) Negative Normal NEGATIVE [facility] Comment on above: Performed By: #### C MP, LIPID, TSH #### [facility] [address] [place] [address] Dr. Bertram Paulino Ketones Ql (U) Negative Normal NEGATIVE [facility] Comment on above: Performed By: #### C MP, LIPID, TSH #### [facility] [address] [address] [address] Bertram Paulino LEUKOCYTES Negative Normal NEGATIVE [facility] Comment on above: Performed By: #### C MP, LIPID, TSH #### [facility] [address] [place] [address] Dr. Bertram Paulino Nitrite Ql (U) Negative Normal NEGATIVE [facility] Comment on above: Performed By: #### C MP, LIPID, TSH #### [facility] [address] [place] [address] Dr. Bertram Paulino pH (U) 7.0 [pH] Normal 5-9 [facility] Comment on above: Performed By: #### C MP, LIPID, TSH #### [facility] [address] [place] [address] Dr. Bertram Paulino SPEC GRAVITY <=1.005 Abnormal 1.005-<=1.025 [facility] Comment on above: Performed By: #### C MP, LIPID, TSH #### [facility] [address] [place] [address] Dr. Bertram Paulino UA PROTEIN Negative Normal NEGATIVE/ TRACE [facility] Comment on above: Performed By: #### C MP, LIPID, TSH #### [facility] [address] [place] [address] Dr. Bertram Paulino UR MICRO IND NOT INDICATED Normal [facility] Comment on above: Performed By: #### C MP, LIPID, TSH #### [facility] [address] [place] [address] Dr. Bertram Paulino Urobilinogen Qn (U) 0.2 {Yazmin'U}/dL Normal 0.2 - 1. 0 [facility] Comment on above: Performed By: #### C MP, LIPID, TSH #### [facility] [address] [place] [address] Dr. Bertram Paulino MONOon 01-23-2023 Monocytes (Bld) [#/Vol] Negative Normal NEGATIVE [facility] Comment on above: Performed By: #### C MP, LIPID, TSH #### [facility] [address] [address] [address] Bertram Paulino PROF 14(COMP METB)on 023 Albumin [Mass/Vol] 4.1 g/dL Normal 3.4-5.0 [facility] Comment on above: Performed By: #### H STROPN, TSH, CMP #### [facility] [address] [address] [address] Bertram Paulino Albumin/Globulin [Mass ratio] 1.2 {ratio} Normal [facility] Comment on above: Performed By: #### H STROPN, TSH, CMP #### [facility] [address] [place] [address] Dr. Bertram Paulino ALP [Catalytic activity/Vol] 71 U/L Normal 46-116 [facility] Comment on above: Performed By: #### H STROPN, TSH, CMP #### [facility] [address] [address] [address] Bertram Paulino ALT [Catalytic activity/Vol] 53 U/L Normal 14-59 [facility] Comment on above: Performed By: #### H STROPN, TSH, CMP #### [facility] [address] [address] [address] Bertram Paulino Anion gap [Moles/Vol] 8.1 mmol/L Normal [facility] Comment on above: Performed By: #### H STROPN, TSH, CMP #### [facility] [address] [address] [address] Bertram Paulino AST [Catalytic activity/Vol] 35 U/L Normal 15-37 [facility] Comment on above: Performed By: #### H STROPN, TSH, CMP #### [facility] [address] [address] [address] Bertram Paulino Bilirubin [Mass/Vol] 0.3 mg/dL Normal 0.2-1.0 [facility] Comment on above: Performed By: #### H STROPN, TSH, CMP #### [facility] [address] [address] [address] Bertram Paulino Calcium [Mass/Vol] 9.3 mg/dL Normal 8.5-10.1 [facility] Comment on above: Performed By: #### H STROPN, TSH, CMP #### [facility] [address] [address] [address] Bertram Paulino Chloride [Moles/Vol] 103 mmol/L Normal 98-107 [facility] Comment on above: Performed By: #### H STROPN, TSH, CMP #### [facility] [address] [address] [address] Bertram Paulino CO2 [Moles/Vol] 29.5 mmol/L Normal 21.0-32.0 [facility] Comment on above: Performed By: #### H STROPN, TSH, CMP #### [facility] [address] [address] [address] Bertram Paulino Creatinine [Mass/Vol] 0.62 mg/dL Normal 0.55-1.02 [facility] Comment on above: Performed By: #### H STROPN, TSH, CMP #### [facility] [address] [address] [address] Bertram Paulino EGFR-AF BANGLADESHI >60 Normal >=60 [facility] Comment on above: Performed By: #### H STROPN, TSH, CMP #### [facility] [address] [address] [address] Bertram Paulino EGFR-NON AF BANGLADESHI >60 Normal >=60 [facility] Comment on above: Performed By: #### H STROPN, TSH, CMP #### [facility] [address] [address] [address] Bertram Paulino Globulin (S) [Mass/Vol] 3.3 g/dL Normal [facility] Comment on above: Performed By: #### H STROPN, TSH, CMP #### [facility] [address] [address] [address] Bertram Paulino Glucose [Mass/Vol] 121 mg/dL Critically high 74-106 [facility] Comment on above: Performed By: #### H STROPN, TSH, CMP #### [facility] [address] [place] [address] Dr. Bertram Paulino Potassium [Moles/Vol] 3.6 mmol/L Normal 3.5-5.1 [facility] Comment on above: Performed By: #### H STROPN, TSH, CMP #### [facility] [address] [place] [address] Dr. Bertram Paulino Protein [Mass/Vol] 7.4 g/dL Normal 6.4-8.2 [facility] Comment on above: Performed By: #### H STROPN, TSH, CMP #### [facility] [address] [place] [address] Dr. Bertram Paulino Sodium [Moles/Vol] 137 mmol/L Normal 136-145 [facility] Comment on above: Performed By: #### H STROPN, TSH, CMP #### [facility] [address] [place] [address] Dr. Bertram Paulino Urea nitrogen [Mass/Vol] 9.0 mg/dL Normal 7.0-18.0 [facility] Comment on above: Performed By: #### H STROPN, TSH, CMP #### [facility] [address] [place] [address] Dr. Bertram Paulino Urea nitrogen/Creatinine [Mass ratio] 14.5 mg/mg Normal [facility] Comment on above: Performed By: #### H STROPN, TSH, CMP #### [facility] [address] [place] [address] Dr. Bertram Paulino PROTIMEon 01-23-2023 INR Coag (PPP) [Relative time] {INR} Normal [facility] Comment on above: Performed By: #### C MP, LIPID, TSH #### [facility] [address] [place] [address] Dr. Bertram Paulino INR GUIDELINES SEE BELOW Normal [facility] Comment on above: Result Comment: TYRA RED INR: 2.0 - 3.0 CONDITIONS NOT LISTED BELOW 2.5 - 3.5 FOR PROSTHETIC HEART VALVE REPLACEMENT 2.5 - 3.5 RECURRENT THROMBOSIS Performed By: #### C MP, LIPID, TSH #### [facility] [address] [place] [address] Dr. Bertram Paulino PT Coag (PPP) [Time] 9.6 s Normal 9.0-11.6 [facility] Comment on above: Performed By: #### C MP, LIPID, TSH #### [facility] [address] [place] [address] Dr. Bertram Paulino PTTon 01-23-2023 aPTT Coag (Bld) [Time] s Normal 22.3-36.2 [facility] Comment on above: Performed By: #### C MP, LIPID, TSH #### [facility] [address] [place] [address] Dr. Bertram Paulino TROPONIN, HIGH SENSITIVITYon 01-23-2023 HSTROP 4.8 pg/mL Normal 4.0-51.3 [facility] Comment on above: Result Comment: CUT- OFF POINTS HAVE BEEN ESTABLISHED BASED ON THE FOURTH UNIVERSAL DEFINITIONS OF MYOCARDIAL INFARCTION. THE UPPER REFERENCE LIMIT (URL) OF TROPONIN, DEFINED THE 99TH PERCENTILE OF cTnI DISTRIBUTION IN A REFERENCE POPULATION, HAS BEEN CONFIRMED THE DECISION THRESHOLD FOR [place] DIAGNOSIS. Performed By: #### C MP, LIPID, TSH #### [facility] [address] [place] [address] Dr. Bertram Paulino TSHon 01-23-2023 TSH 2.684 uIU/mL Normal 0.358-3.740 [facility] Comment on above: Performed By: #### H STROPN, TSH, CMP #### [facility] [address] [place] [address] Dr. Bertram Paulino CBC AUTO DIFFon 01-12-2023 BASO # 0.0 103/ul Normal 0.0-0.1 [facility] Comment on above: Performed By: #### C MP, LIPID, TSH #### [facility] [address] [place] [address] Dr. Bertram Paulino Basophils/100 WBC (Bld) 0.5 % Normal 0.2-2.0 [facility] Comment on above: Performed By: #### C MP, LIPID, TSH #### [facility] [address] [place] [address] Dr. Bertram Paulino EO # 0.2 103/ul Normal 0.0-0.7 [facility] Comment on above: Performed By: #### C MP, LIPID, TSH #### [facility] [address] [place] [address] Dr. Bertram Paulino Eosinophils/100 WBC (Bld) 3.6 % Normal 0.9-7.0 [facility] Comment on above: Performed By: #### C MP, LIPID, TSH #### [facility] [address] [place] [address] Dr. Bertram Paulino Erythrocyte distribution width (RBC) [Ratio] 12.7 % Normal 11.0-15.0 [facility] Comment on above: Performed By: #### C MP, LIPID, TSH #### [facility] [address] [place] [address] Dr. Bertram Paulino Hematocrit (Bld) [Volume fraction] 37.6 % Normal 36.0-48.0 [facility] Comment on above: Performed By: #### C MP, LIPID, TSH #### [facility] [address] [place] [address] Dr. Bertram Paulino Hemoglobin (Bld) [Mass/Vol] 12.7 g/dL Normal 12.0-16.0 [facility] Comment on above: Performed By: #### C MP, LIPID, TSH #### [facility] [address] [place] [address] Dr. Bertram Paulino IG # 0.02 10e3/ul Normal 0.00-0.03 [facility] Comment on above: Performed By: #### C MP, LIPID, TSH #### [facility] [address] [place] [address] Dr. Bertram Paulino IG % 0.3 % Normal 0.0-0.5 [facility] Comment on above: Performed By: #### C MP, LIPID, TSH #### [facility] [address] [place] [address] Dr. Bertram Paulino LYMPH # 2.2 103/ul Normal 1.2-3.8 [facility] Comment on above: Performed By: #### C MP, LIPID, TSH #### [facility] [address] [place] [address] Dr. Bertram Paulino Lymphocytes/100 WBC (Bld) 35.7 % Normal 20.5-60.0 [facility] Comment on above: Performed By: #### C MP, LIPID, TSH #### [facility] [address] [place] [address] Dr. Bertram Paulino MANUAL DIFF REQ NO Normal [facility] Comment on above: Performed By: #### C MP, LIPID, TSH #### [facility] [address] [place] [address] Dr. Bertram Paulino MCH (RBC) [Entitic mass] 29.7 pg Normal 26.7-34.0 [facility] Comment on above: Performed By: #### C MP, LIPID, TSH #### [facility] [address] [place] [address] Dr. Bertram Paulino MCHC (RBC) [Mass/Vol] 33.8 g/dL Normal 29.9-35.2 [facility] Comment on above: Performed By: #### C MP, LIPID, TSH #### [facility] [address] [place] [address] Dr. Bertram Paulino MCV (RBC) [Entitic vol] 88.1 fL Normal 81.0-99.0 [facility] Comment on above: Performed By: #### C MP, LIPID, TSH #### [facility] [address] [place] [address] Dr. Bertram Paulino MONO # 0.3 103/ul Normal 0.3-0.8 [facility] Comment on above: Performed By: #### C MP, LIPID, TSH #### [facility] [address] [place] [address] Dr. Bertram Paulino Monocytes/100 WBC (Bld) 5.1 % Normal 1.7-12.0 [facility] Comment on above: Performed By: #### C MP, LIPID, TSH #### [facility] [address] [address] [address] Bertram Paulino NEUT # 3.4 103/ul Normal 1.4-6.5 [facility] Comment on above: Performed By: #### C MP, LIPID, TSH #### [facility] [address] [place] [address] Dr. Bertram Paulino Neutrophils/100 WBC (Bld) 54.8 % Normal 43.0-75.0 [facility] Comment on above: Performed By: #### C MP, LIPID, TSH #### [facility] [address] [place] [address] Dr. Bertram Paulino Platelet mean volume (Bld) [Entitic vol] 10.3 fL Normal 9.5-13.5 [facility] Comment on above: Performed By: #### C MP, LIPID, TSH #### [facility] [address] [place] [address] Dr. Bertram Paulino PLT 269 103/ul Normal 150-450 [facility] Comment on above: Performed By: #### C MP, LIPID, TSH #### [facility] [address] [place] [address] Dr. Bertram Paulino RBC 4.27 106/ul Normal 4.20-5.40 [facility] Comment on above: Performed By: #### C MP, LIPID, TSH #### [facility] [address] [place] [address] Dr. Bertram Paulino WBC 6.1 103/ul Normal 4.0-11.0 [facility] Comment on above: Performed By: #### C MP, LIPID, TSH #### [facility] [address] [place] [address] Dr. Bertram Paulino FREE T4on 01-12-2023 Free T4 [Mass/Vol] 1.00 ng/dL Normal 0.76-1.46 [facility] Comment on above: Performed By: #### C MP, LIPID, TSH #### [facility] [address] [place] [address] Dr. Bertram Paulino GLYCOHEMOGLOBIN A1Con 2022 ADA RECOMMENDATION SEE BELOW Normal [facility] Comment on above: Result Comment: ADA RECOMMENDED LIMIT 4.0 - 6.0 ADA THERAPEUTIC TARGET < 7.0 ACTION SUGGESTED > 7.0 Performed By: #### C MP, LIPID, TSH #### [facility] [address] [place] [address] Dr. Bertram Paulino Glucose [Mass/Vol] 126 mg/dL Normal [facility] Comment on above: Performed By: #### C MP, LIPID, TSH #### [facility] [address] [address] [address] Bertram Paulino HbA1c (Bld) [Mass fraction] 6.0 % Normal 4.5-6.2 [facility] Comment on above: Performed By: #### C MP, LIPID, TSH #### [facility] [address] [place] [address] Dr. Bertram Paulino LIPID PROFILEon 01-12-2023 CHOL-HDL RATIO NORM SEE BELOW Normal [facility] Comment on above: Result Comment: 3.3 - 4.4 LOW RISK 4.4 - 7.1 AVERAGE RISK 7.1 - 11.0 MODERATE RISK >11.0 HIGH RISK Performed By: #### C MP, LIPID, TSH #### [facility] [address] [place] [address] Dr. Bertram Paulino Cholesterol [Mass/Vol] 222 mg/dL Critically high <=200 [facility] Comment on above: Performed By: #### C MP, LIPID, TSH #### [facility] [address] [place] [address] Dr. Bertram Paulino Cholesterol in HDL [Mass/Vol] 44 mg/dL Normal 40-60 [facility] Comment on above: Performed By: #### C MP, LIPID, TSH #### [facility] [address] [place] [address] Dr. Bertram Paulino Cholesterol in LDL [Mass/Vol] 132.4 mg/dL Normal [facility] Comment on above: Performed By: #### C MP, LIPID, TSH #### [facility] [address] [place] [address] Dr. Bertram Paulino Cholesterol.total/Ch olesterol in HDL [Mass ratio] 5.0 {ratio} Normal [facility] Comment on above: Performed By: #### C MP, LIPID, TSH #### [facility] [address] [address] [address] Bertram Paulino HDL NORMAL > or = 60 mg/dl - LO W CARDIOVASCULAR RISK <40 mg/dl - HIGH CARDIOVASCULAR RISK Normal [facility] Comment on above: Performed By: #### C MP, LIPID, TSH #### [facility] [address] [address] [address] Bertram Paulino LDL CALC NORMAL SEE BELOW Normal [facility] Comment on above: Result Comment: <100 mg/dl OPTIMAL 100 - 129 mg/dl NEAR OR ABOVE OPTIMAL 130 - 159 mg/dl BORDERLINE HIGH 160 - 189 mg/dl HIGH >190 mg/dl VERY HIGH Performed By: #### C MP, LIPID, TSH #### [facility] [address] [address] [address] Bertram Paulino Triglyceride [Mass/Vol] 228 mg/dL Critically high <=150 [facility] Comment on above: Performed By: #### C MP, LIPID, TSH #### [facility] [address] [address] [address] Bertram Paulino VLDL CALC 45.6 mg/dL Normal [facility] Comment on above: Performed By: #### C MP, LIPID, TSH #### [facility] [address] [address] [address] Bertram Paulino PROF 14(COMP METB)on 023 Albumin [Mass/Vol] 3.8 g/dL Normal 3.4-5.0 [facility] Comment on above: Performed By: #### C MP, LIPID, TSH #### [facility] [address] [address] [address] Bertram Paulino Albumin/Globulin [Mass ratio] 1.2 {ratio} Normal [facility] Comment on above: Performed By: #### C MP, LIPID, TSH #### [facility] [address] [address] [address] Bertram Paulino ALP [Catalytic activity/Vol] 66 U/L Normal 46-116 [facility] Comment on above: Performed By: #### C MP, LIPID, TSH #### [facility] [address] [address] [address] Bertram Paulino ALT [Catalytic activity/Vol] 45 U/L Normal 14-59 [facility] Comment on above: Performed By: #### C MP, LIPID, TSH #### [facility] [address] [address] [address] Bertram Paulino Anion gap [Moles/Vol] 12.8 mmol/L Normal [facility] Comment on above: Performed By: #### C MP, LIPID, TSH #### [facility] [address] [address] [address] Bertram Paulino AST [Catalytic activity/Vol] 29 U/L Normal 15-37 [facility] Comment on above: Performed By: #### C MP, LIPID, TSH #### [facility] [address] [place] [address] Dr. Bertram Paulino Bilirubin [Mass/Vol] 0.4 mg/dL Normal 0.2-1.0 [facility] Comment on above: Performed By: #### C MP, LIPID, TSH #### [facility] [address] [place] [address] Dr. Bertram Paulino Calcium [Mass/Vol] 9.1 mg/dL Normal 8.5-10.1 [facility] Comment on above: Performed By: #### C MP, LIPID, TSH #### [facility] [address] [place] [address] Dr. Bertram Paulino Chloride [Moles/Vol] 104 mmol/L Normal 98-107 [facility] Comment on above: Performed By: #### C MP, LIPID, TSH #### [facility] [address] [place] [address] Dr. Bertram Paulino CO2 [Moles/Vol] 27.2 mmol/L Normal 21.0-32.0 [facility] Comment on above: Performed By: #### C MP, LIPID, TSH #### [facility] [address] [place] [address] Dr. Bertram Paulino Creatinine [Mass/Vol] 0.65 mg/dL Normal 0.55-1.02 [facility] Comment on above: Performed By: #### C MP, LIPID, TSH #### [facility] [address] [address] [address] Bertram Paulino EGFR-AF BANGLADESHI >60 Normal >=60 [facility] Comment on above: Performed By: #### C MP, LIPID, TSH #### [facility] [address] [address] [address] Bertram Paulino EGFR-NON AF BANGLADESHI >60 Normal >=60 [facility] Comment on above: Performed By: #### C MP, LIPID, TSH #### [facility] [address] [place] [address] Dr. Bertram Paulino Globulin (S) [Mass/Vol] 3.1 g/dL Normal [facility] Comment on above: Performed By: #### C MP, LIPID, TSH #### [facility] [address] [place] [address] Dr. Bertram aPulino Glucose [Mass/Vol] 123 mg/dL Critically high 74-106 [facility] Comment on above: Performed By: #### C MP, LIPID, TSH #### [facility] [address] [place] [address] Dr. Bertram Paulino Potassium [Moles/Vol] 4.0 mmol/L Normal 3.5-5.1 [facility] Comment on above: Performed By: #### C MP, LIPID, TSH #### [facility] [address] [place] [address] Dr. Bertram Paulino Protein [Mass/Vol] 6.9 g/dL Normal 6.4-8.2 [facility] Comment on above: Performed By: #### C MP, LIPID, TSH #### [facility] [address] [place] [address] Dr. Bertram Paulino Sodium [Moles/Vol] 140 mmol/L Normal 136-145 [facility] Comment on above: Performed By: #### C MP, LIPID, TSH #### [facility] [address] [place] [address] Dr. Bertram Paulino Urea nitrogen [Mass/Vol] 6.0 mg/dL Critically low 7.0-18.0 [facility] Comment on above: Performed By: #### C MP, LIPID, TSH #### [facility] [address] [address] [address] Bertram Paulino Urea nitrogen/Creatinine [Mass ratio] 9.2 mg/mg Normal [facility] Comment on above: Performed By: #### C MP, LIPID, TSH #### [facility] [address] [address] [address] Bert[facility] 23 mm/hr Normal <=30 [facility] Comment on above: Performed By: #### C MP, LIPID, TSH #### [facility] [address] [address] [address] Bertram Paulino TSHon 01-12-2023 TSH 2.215 uIU/mL Normal 0.358-3.740 [facility] Comment on above: Performed By: #### C MP, LIPID, TSH #### [facility] [address] CHEST W CONon [...] by: PASTOR ESPANA Date: 2022-08-10 06:47 Normal [facility] XR CHEST 2 Von 07-11-2022 XR [...] by: VANESSA PRESLEY Date: 2022-07-11 07:11 Normal [facility] Progress Noteson 07-05-2022 [employer] Authentication Interface Message Text Documentation: Mode: Telephone Patient Patient Work Phone: Patient Cell Preferred phone: [phone] Consent: I confirmed patient understanding of the risks and benefits of telehealth visits and obtained consent to proceed with the telehealth visit. 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 Bertram Paulino Basophils/100 WBC (Bld) 0.2 % Normal 0.2-2.0 [facility] Comment on above: Performed By: #### C MP, LIPID, TSH #### [facility] [address] [address] [address] Bertram Paulino EO # 0.1 103/ul Normal 0.0-0.7 [facility] Comment on above: Performed By: #### C MP, LIPID, TSH #### [facility] [address] [address] [address] Bertram Paulino Eosinophils/100 WBC (Bld) 0.7 % Critically low 0.9-7.0 [facility] Comment on above: Performed By: #### C MP, LIPID, TSH #### [facility] [address] [address] [address] Bertram Paulino Erythrocyte distribution width (RBC) [Ratio] 12.9 % Normal 11.0-15.0 [facility] Comment on above: Performed By: #### C MP, LIPID, TSH #### [facility] [address] [address] [address] Bertram Paulino Hematocrit (Bld) [Volume fraction] 41.5 % Normal 36.0-48.0 [facility] Comment on above: Performed By: #### C MP, LIPID, TSH #### [facility] [address] [address] [address] Bertram Paulino Hemoglobin (Bld) [Mass/Vol] 14.1 g/dL Normal 12.0-16.0 [facility] Comment on above: Performed By: #### C MP, LIPID, TSH #### [facility] [address] [address] [address] Bertram Paulino IG # 0.03 10e3/ul Normal 0.00-0.03 [facility] Comment on above: Performed By: #### C MP, LIPID, TSH #### [facility] [address] [place] [address] Dr. Bertram Paulino IG % 0.3 % Normal 0.0-0.5 [facility] Comment on above: Performed By: #### C MP, LIPID, TSH #### [facility] [address] [place] [address] Dr. Bertram Paulino LYMPH # 2.4 103/ul Normal 1.2-3.8 [facility] Comment on above: Performed By: #### C MP, LIPID, TSH #### [facility] [address] [place] [address] Dr. Bertram Paulino Lymphocytes/100 WBC (Bld) 27.6 % Normal 20.5-60.0 [facility] Comment on above: Performed By: #### C MP, LIPID, TSH #### [facility] [address] [place] [address] Dr. Bertram Paulino MANUAL DIFF REQ NO Normal [facility] Comment on above: Performed By: #### C MP, LIPID, TSH #### [facility] [address] [place] [address] Dr. Bertram Paulino MCH (RBC) [Entitic mass] 29.7 pg Normal 26.7-34.0 [facility] Comment on above: Performed By: #### C MP, LIPID, TSH #### [facility] [address] [place] [address] Dr. Bertram Paulino MCHC (RBC) [Mass/Vol] 34.0 g/dL Normal 29.9-35.2 [facility] Comment on above: Performed By: #### C MP, LIPID, TSH #### [facility] [address] [place] [address] Dr. Bertram Paulino MCV (RBC) [Entitic vol] 87.6 fL Normal 81.0-99.0 [facility] Comment on above: Performed By: #### C MP, LIPID, TSH #### [facility] [address] [place] [address] Dr. Bertram Paulino MONO # 0.6 103/ul Normal 0.3-0.8 [facility] Comment on above: Performed By: #### C MP, LIPID, TSH #### [facility] [address] [place] [address] Dr. Bertram Paulino Monocytes/100 WBC (Bld) 6.8 % Normal 1.7-12.0 [facility] Comment on above: Performed By: #### C MP, LIPID, TSH #### [facility] [address] [place] [address] Dr. Bertram Paulino NEUT # 5.6 103/ul Normal 1.4-6.5 [facility] Comment on above: Performed By: #### C MP, LIPID, TSH #### [facility] [address] [place] [address] Dr. Bertram Paulino Neutrophils/100 WBC (Bld) 64.4 % Normal 43.0-75.0 [facility] Comment on above: Performed By: #### C MP, LIPID, TSH #### [facility] [address] [place] [address] Dr. Bertram Paulino Platelet mean volume (Bld) [Entitic vol] 10.0 fL Normal 9.5-13.5 [facility] Comment on above: Performed By: #### C MP, LIPID, TSH #### [facility] [address] [place] [address] Dr. Bertram Paulino PLT 326 103/ul Normal 150-450 [facility] Comment on above: Performed By: #### C MP, LIPID, TSH #### [facility] [address] [address] [address] Bertram Paulino RBC 4.74 106/ul Normal 4.20-5.40 [facility] Comment on above: Performed By: #### C MP, LIPID, TSH #### [facility] [address] [place] [address] Dr. Bertram Paulino WBC 8.7 103/ul Normal 4.0-11.0 [facility] Comment on above: Performed By: #### C MP, LIPID, TSH #### [facility] [address] [place] [address] Dr. Bertram Paulino ER URINE PROFILEon 2 Bilirubin Ql (U) Negative Normal NEGATIVE [facility] Comment on above: Performed By: #### C MP, LIPID, TSH #### [facility] [address] [place] [address] Dr. Bertram Paulino Clarity (U) CLEAR Normal CLEAR [facility] Comment on above: Performed By: #### C MP, LIPID, TSH #### [facility] [address] [place] [address] Dr. Bertram Paulino Color (U) LT. YELLOW Normal YELLOW [facility] Comment on above: Performed By: #### C MP, LIPID, TSH #### [facility] [address] [place] [address] Dr. Bertram ETIENNE A micrscopic examination will be performed if indicated. Normal [facility] Comment on above: Performed By: #### C MP, LIPID, TSH #### [facility] [address] [place] [address] Dr. Bertram Paulino Glucose Ql (U) Negative Normal NEGATIVE [facility] Comment on above: Performed By: #### C MP, LIPID, TSH #### [facility] [address] [place] [address] Dr. Bertram Paulino Hemoglobin Ql (U) Negative Normal NEGATIVE [facility] Comment on above: Performed By: #### C MP, LIPID, TSH #### [facility] [address] [place] [address] Dr. Bertram Paulino Ketones Ql (U) TRACE Abnormal NEGATIVE [facility] Comment on above: Performed By: #### C MP, LIPID, TSH #### [facility] [address] [address] [address] Bertram Paulino LEUKOCYTES Negative Normal NEGATIVE [facility] Comment on above: Performed By: #### C MP, LIPID, TSH #### [facility] [address] [address] [address] Bertram Paulino Nitrite Ql (U) Negative Normal NEGATIVE [facility] Comment on above: Performed By: #### C MP, LIPID, TSH #### [facility] [address] [address] [address] Bertram Paulino pH (U) 6.0 [pH] Normal 5-9 [facility] Comment on above: Performed By: #### C MP, LIPID, TSH #### [facility] [address] [place] [address] Dr. Bertram Paulino SPEC GRAVITY <=1.005 Abnormal 1.005-<=1.025 [facility] Comment on above: Performed By: #### C MP, LIPID, TSH #### [facility] [address] [place] [address] Dr. Bertram Paulino UA PROTEIN Negative Normal NEGATIVE/ TRACE [facility] Comment on above: Performed By: #### C MP, LIPID, TSH #### [facility] [address] [place] [address] Dr. Bertram Paulino UR MICRO IND NOT INDICATED Normal [facility] Comment on above: Performed By: #### C MP, LIPID, TSH #### [facility] [address] [place] [address] Dr. Bertram Paulino Urobilinogen Qn (U) 0.2 {Yazmin'U}/dL Normal 0.2 - 1. 0 [facility] Comment on above: Performed By: #### C MP, LIPID, TSH #### [facility] [address] [place] [address] Dr. Bertram Paulino LACTATE/LACTIC ACIDon 2021 Lactate [Moles/Vol] 1.2 mmol/L Normal 0.4-1.9 [facility] Comment on above: Performed By: #### C MP, LIPID, TSH #### [facility] [address] [address] [address] Bertram Paulino MONOon 07-01-2022 Monocytes (Bld) [#/Vol] Negative Normal NEGATIVE [facility] Comment on above: Performed By: #### M VENUS ####[facility] [id number] [place], [place] [address]SnDr. Bertram Paulino PROF 14(COMP METB)on 022 Albumin [Mass/Vol] 4.1 g/dL Normal 3.4-5.0 [facility] Comment on above: Performed By: #### C MP, LIPID, TSH #### [facility] [address] [address] [address] Bertram Paulino Albumin/Globulin [Mass ratio] 1.1 {ratio} Normal [facility] Comment on above: Performed By: #### C MP, LIPID, TSH #### [facility] [address] [address] [address] Bertram Paulino ALP [Catalytic activity/Vol] 57 U/L Normal 46-116 [facility] Comment on above: Performed By: #### C MP, LIPID, TSH #### [facility] [address] [place] [address] Dr. Bertram Paulino ALT [Catalytic activity/Vol] 38 U/L Normal 14-59 [facility] Comment on above: Performed By: #### C MP, LIPID, TSH #### [facility] [address] [address] [address] Bertram Paulino Anion gap [Moles/Vol] 13.9 mmol/L Normal [facility] Comment on above: Performed By: #### C MP, LIPID, TSH #### [facility] [address] [place] [address] Dr. Bertram Paulino AST [Catalytic activity/Vol] 22 U/L Normal 15-37 [facility] Comment on above: Performed By: #### C MP, LIPID, TSH #### [facility] [address] [address] [address] Bertram Paulino Bilirubin [Mass/Vol] 0.7 mg/dL Normal 0.2-1.0 [facility] Comment on above: Performed By: #### C MP, LIPID, TSH #### [facility] [address] [place] [address] Dr. Bertram Paulino Calcium [Mass/Vol] 9.6 mg/dL Normal 8.5-10.1 [facility] Comment on above: Performed By: #### C MP, LIPID, TSH #### [facility] [address] [address] [address] Bertram Paulino Chloride [Moles/Vol] 98 mmol/L Normal 98-107 [facility] Comment on above: Performed By: #### C MP, LIPID, TSH #### [facility] [address] [place] [address] Dr. Bertram Paulino CO2 [Moles/Vol] 27.4 mmol/L Normal 21.0-32.0 [facility] Comment on above: Performed By: #### C MP, LIPID, TSH #### [facility] [address] [place] [address] Dr. Bertram Paulino Creatinine [Mass/Vol] 0.85 mg/dL Normal 0.55-1.02 [facility] Comment on above: Performed By: #### C MP, LIPID, TSH #### [facility] [address] [place] [address] Dr. Bertram Paulino EGFR-AF BANGLADESHI >60 Normal >=60 [facility] Comment on above: Performed By: #### C MP, LIPID, TSH #### [facility] [address] [place] [address] Dr. Bertram Paulino EGFR-NON AF BANGLADESHI >60 Normal >=60 [facility] Comment on above: Performed By: #### C MP, LIPID, TSH #### [facility] [address] [place] [address] Dr. Bertram Paulino Globulin (S) [Mass/Vol] 3.6 g/dL Normal [facility] Comment on above: Performed By: #### C MP, LIPID, TSH #### [facility] [address] [place] [address] Dr. Bertram Paulino Glucose [Mass/Vol] 99 mg/dL Normal 74-106 [facility] Comment on above: Performed By: #### C MP, LIPID, TSH #### [facility] [address] [address] [address] Bertram Paulino Potassium [Moles/Vol] 3.3 mmol/L Critically low 3.5-5.1 [facility] Comment on above: Performed By: #### C MP, LIPID, TSH #### [facility] [address] [address] [address] Bertram Paulino Protein [Mass/Vol] 7.7 g/dL Normal 6.4-8.2 [facility] Comment on above: Performed By: #### C MP, LIPID, TSH #### [facility] [address] [address] [address] Bertram Paulino Sodium [Moles/Vol] 136 mmol/L Normal 136-145 [facility] Comment on above: Performed By: #### C MP, LIPID, TSH #### [facility] [address] [address] [address] Bertram Paulino Urea nitrogen [Mass/Vol] 13.0 mg/dL Normal 7.0-18.0 [facility] Comment on above: Performed By: #### C MP, LIPID, TSH #### [facility] [address] [place] [address] Dr. Bertram Paulino Urea nitrogen/Creatinine [Mass ratio] 15.3 mg/mg Normal [facility] Comment on above: Performed By: #### C MP, LIPID, TSH #### [facility] [address] [address] [address] Bertram Paulino TROPONIN, HIGH SENSITIVITYon 07-01-2022 HSTROP 6.5 pg/mL Normal 4.0-51.3 [facility] Comment on above: Result Comment: CUT- OFF POINTS HAVE BEEN ESTABLISHED BASED ON THE FOURTH UNIVERSAL DEFINITIONS OF MYOCARDIAL INFARCTION. THE UPPER REFERENCE LIMIT (URL) OF TROPONIN, DEFINED THE 99TH PERCENTILE OF cTnI DISTRIBUTION IN A REFERENCE POPULATION, HAS BEEN CONFIRMED THE DECISION THRESHOLD FOR [place] DIAGNOSIS. Performed By: #### T SH, CMP, HSTROPN ####[facility] [id number] [id number] Bertram Paulino TSHon 07-01-2022 TSH 2.596 uIU/mL Normal 0.358-3.740 [facility] Comment on above: Performed By: #### T SH, CMP, HSTROPN ####[facility] [id number] [id number][address] Bertram Paulino STOOL CULTUREon 06-10-2022 Campylobacter Culture Final report Normal [facility] Comment on above: Performed By: #### C MP, LIPID, TSH #### [facility] [address] [address] [address] Bertram Paulino E coli Shiga Toxin EIA Negative Normal Negative [facility] Comment on above: Performed By: #### C MP, LIPID, TSH #### [facility] [address] [address] [address] Bertram Paulino Result 1 Comment Normal [facility] Comment on above: Result Comment: No S almonella or Shigella recovered. Performed By: #### C MP, LIPID, TSH #### [facility] [address] [address] [address] Bertram Paulino Result Comment: No C ampylobacter species isolated. Salmonella/Shigella Screen Final report Normal [facility] Comment on above: Performed By: #### C MP, LIPID, TSH #### [facility] [address] [address] [address] Bertram Paulino OVA AND PARASITE EXAMINATION on 06-09-2022 Ova + Parasite Exam Final report Normal [facility] Comment on above: Result Comment: Thes e results were obtained using wet preparation(s) and trichrome stained smear. This test does not include testing for Cryptosporidium parvum, Cyclospora, or Microsporidia. Performed By: #### O VAPE ####[facility] [id number] [place] [address]Dr. Bertram Paulino Result 1 Comment Normal [facility] Comment on above: Result Comment: No o va, cysts, or parasites seen. . One negative specimen does not rule out the possibility of a parasitic infection. Performed By: #### O VAPE ####[facility] [id number] [place] [address]Dr. Bertram Paulino CLOSTRIDIUM DIFFICILE PCRon 06-07-2022 C difficile Toxin Gene KIRT Negative Normal Negative [facility] Comment on above: Performed By: #### C DIFNAA #### [facility] [address] [address] [address] Bertram Paulino OCC BLD IMMUNO SCREENon 05-14 OCCULT BLOOD Negative Normal NEGATIVE [facility] Comment on above: Performed By: #### C MP, LIPID, TSH #### [facility] [address] [address] [address] Bertram Paulino CARDIAC ERASMO 3-6on 2 CK [Catalytic activity/Vol] 109 U/L Normal [facility] Comment on above: Performed By: #### C MP, LIPID, TSH #### [facility] [address] [address] [address] Bertram Paulino CK.MB [Mass/Vol] 1.63 ng/mL Normal <=3.60 [facility] Comment on above: Performed By: #### C MP, LIPID, TSH #### [facility] [address] [address] [address] Bertram Paulino HSTROP 6.0 pg/mL Normal 4.0-51.3 [facility] Comment on above: Result Comment: CUT- OFF POINTS HAVE BEEN ESTABLISHED BASED ON THE FOURTH UNIVERSAL DEFINITIONS OF MYOCARDIAL INFARCTION. THE UPPER REFERENCE LIMIT (URL) OF TROPONIN, DEFINED THE 99TH PERCENTILE OF cTnI DISTRIBUTION IN A REFERENCE POPULATION, HAS BEEN CONFIRMED THE DECISION THRESHOLD FOR [place] DIAGNOSIS. Performed By: #### C MP, LIPID, TSH #### [facility] [address] [address] [address] Bertram Paulino CK [Catalytic activity/Vol] 101 U/L Normal [facility] Comment on above: Performed By: #### C MREP ####[facility] [id number] [place] [address]Dr. Bertram Paulino CK.MB [Mass/Vol] 1.60 ng/mL Normal <=3.60 [facility] Comment on above: Performed By: #### C MREP ####[facility] [id number] [place] [address]Dr. Bertram Paulino HSTROP 5.8 pg/mL Normal 4.0-51.3 [facility] Comment on above: Result Comment: CUT- OFF POINTS HAVE BEEN ESTABLISHED BASED ON THE FOURTH UNIVERSAL DEFINITIONS OF MYOCARDIAL INFARCTION. THE UPPER REFERENCE LIMIT (URL) OF TROPONIN, DEFINED THE 99TH PERCENTILE OF cTnI DISTRIBUTION IN A REFERENCE POPULATION, HAS BEEN CONFIRMED THE DECISION THRESHOLD FOR [place] DIAGNOSIS. Performed By: #### C MREP ####[facility] [id number] [place] [address]Dr. Bertram Paulino CBC AUTO DIFFon 05-15-2022 BASO # 0.1 103/ul Normal 0.0-0.1 [facility] Comment on above: Performed By: #### C MP, LIPID, TSH #### [facility] [address] [address] [address] Bertram Paulino Basophils/100 WBC (Bld) 0.8 % Normal 0.2-2.0 [facility] Comment on above: Performed By: #### C MP, LIPID, TSH #### [facility] [address] [address] [address] Bertram Paulino EO # 0.2 103/ul Normal 0.0-0.7 [facility] Comment on above: Performed By: #### C MP, LIPID, TSH #### [facility] [address] [address] [address] Bertram Paulino Eosinophils/100 WBC (Bld) 2.9 % Normal 0.9-7.0 [facility] Comment on above: Performed By: #### C MP, LIPID, TSH #### [facility] [address] [place] [address] Dr. Bertram Paulino Erythrocyte distribution width (RBC) [Ratio] 13.5 % Normal 11.0-15.0 [facility] Comment on above: Performed By: #### C MP, LIPID, TSH #### [facility] [address] [place] [address] Dr. Bertram Paulino Hematocrit (Bld) [Volume fraction] 34.4 % Critically low 36.0-48.0 [facility] Comment on above: Performed By: #### C MP, LIPID, TSH #### [facility] [address] [place] [address] Dr. Bertram Paulino Hemoglobin (Bld) [Mass/Vol] 11.8 g/dL Critically low 12.0-16.0 [facility] Comment on above: Performed By: #### C MP, LIPID, TSH #### [facility] [address] [place] [address] Dr. Bertram Paulino IG # 0.03 10e3/ul Normal 0.00-0.03 [facility] Comment on above: Performed By: #### C MP, LIPID, TSH #### [facility] [address] [place] [address] Dr. Bertram Paulino IG % 0.5 % Normal 0.0-0.5 [facility] Comment on above: Performed By: #### C MP, LIPID, TSH #### [facility] [address] [place] [address] Dr. Bertram Paulino LYMPH # 2.7 103/ul Normal 1.2-3.8 [facility] Comment on above: Performed By: #### C MP, LIPID, TSH #### [facility] [address] [place] [address] Dr. Bertram Paulino Lymphocytes/100 WBC (Bld) 41.3 % Normal 20.5-60.0 [facility] Comment on above: Performed By: #### C MP, LIPID, TSH #### [facility] [address] [place] [address] Dr. Bertram Paulino MANUAL DIFF REQ NO Normal [facility] Comment on above: Performed By: #### C MP, LIPID, TSH #### [facility] [address] [place] [address] Dr. Bertram Paulino MCH (RBC) [Entitic mass] 29.9 pg Normal 26.7-34.0 [facility] Comment on above: Performed By: #### C MP, LIPID, TSH #### [facility] [address] [address] [address] Bertram Paulino MCHC (RBC) [Mass/Vol] 34.3 g/dL Normal 29.9-35.2 [facility] Comment on above: Performed By: #### C MP, LIPID, TSH #### [facility] [address] [address] [address] Bertram Paulino MCV (RBC) [Entitic vol] 87.3 fL Normal 81.0-99.0 [facility] Comment on above: Performed By: #### C MP, LIPID, TSH #### [facility] [address] [place] [address] Dr. Bertram Paulino MONO # 0.6 103/ul Normal 0.3-0.8 [facility] Comment on above: Performed By: #### C MP, LIPID, TSH #### [facility] [address] [place] [address] Dr. Bertram Paulino Monocytes/100 WBC (Bld) 9.6 % Normal 1.7-12.0 [facility] Comment on above: Performed By: #### C MP, LIPID, TSH #### [facility] [address] [place] [address] Dr. Bertram Paulino NEUT # 2.9 103/ul Normal 1.4-6.5 [facility] Comment on above: Performed By: #### C MP, LIPID, TSH #### [facility] [address] [place] [address] Dr. Bertram Paulino Neutrophils/100 WBC (Bld) 44.9 % Normal 43.0-75.0 [facility] Comment on above: Performed By: #### C MP, LIPID, TSH #### [facility] [address] [place] [address] Dr. Bertram Paulino Platelet mean volume (Bld) [Entitic vol] 11.0 fL Normal 9.5-13.5 [facility] Comment on above: Performed By: #### C MP, LIPID, TSH #### [facility] [address] [place] [address] Dr. Bertram Paulino PLT 281 103/ul Normal 150-450 [facility] Comment on above: Performed By: #### C MP, LIPID, TSH #### [facility] [address] [place], [place] [address] Dr. Bertram Paulino RBC 3.94 106/ul Critically low 4.20-5.40 [facility] Comment on above: Performed By: #### C MP, LIPID, TSH #### [facility] [address] [place], [place] [address] Dr. Bertram Paulino WBC 6.5 103/ul Normal 4.0-11.0 [facility] Comment on above: Performed By: #### C MP, LIPID, TSH #### [facility] [address] [place], [place] [address] Dr. Bertram Paulino CTA CHEST WO W [...] MELANI BETANCOURT Date: 2022-05-14 23:01 Normal [facility] Covid-19 PCR (CVDTBH)on SARS-CoV-2 (COVID-19) RNA KIRT+probe Ql (Unsp spec) Not detected Normal NOT DETECTED [facility] Comment on above: Result Comment: When [...] for this test is supported by the [employer] Controller of Health and Human Service's declaration that [...] By: #### C MP, LIPID, TSH #### [facility] [address] [place] [address] Dr. Bertram Paulino PROF 14(COMP METB)on 022 Albumin [Mass/Vol] 3.3 g/dL Critically low 3.4-5.0 [facility] Comment on above: Performed By: #### C MP, LIPID, TSH #### [facility] [address] [place] [address] Dr. Bertram Paulino Albumin/Globulin [Mass ratio] 1.1 {ratio} Normal [facility] Comment on above: Performed By: #### C MP, LIPID, TSH #### [facility] [address] [place] [address] Dr. Bertram Paulino ALP [Catalytic activity/Vol] 47 U/L Normal 46-116 [facility] Comment on above: Performed By: #### C MP, LIPID, TSH #### [facility] [address] [place] [address] Dr. Bertram Paulino ALT [Catalytic activity/Vol] 42 U/L Normal 14-59 [facility] Comment on above: Performed By: #### C MP, LIPID, TSH #### [facility] [address] [address] [address] Bertram Paulino Anion gap [Moles/Vol] 14.3 mmol/L Normal [facility] Comment on above: Performed By: #### C MP, LIPID, TSH #### [facility] [address] [address] [address] Bertram Paulino AST [Catalytic activity/Vol] 20 U/L Normal 15-37 [facility] Comment on above: Performed By: #### C MP, LIPID, TSH #### [facility] [address] [address] [address] Bertram Paulino Bilirubin [Mass/Vol] 0.3 mg/dL Normal 0.2-1.0 [facility] Comment on above: Performed By: #### C MP, LIPID, TSH #### [facility] [address] [place] [address] Dr. Bertram Paulino Calcium [Mass/Vol] 9.0 mg/dL Normal 8.5-10.1 [facility] Comment on above: Performed By: #### C MP, LIPID, TSH #### [facility] [address] [place] [address] Dr. Bertram Paulino Chloride [Moles/Vol] 105 mmol/L Normal 98-107 [facility] Comment on above: Performed By: #### C MP, LIPID, TSH #### [facility] [address] [place] [address] Dr. Bertram Paulino CO2 [Moles/Vol] 26.5 mmol/L Normal 21.0-32.0 [facility] Comment on above: Performed By: #### C MP, LIPID, TSH #### [facility] [address] [place] [address] Dr. Bertram Paulino Creatinine [Mass/Vol] 0.77 mg/dL Normal 0.55-1.02 [facility] Comment on above: Performed By: #### C MP, LIPID, TSH #### [facility] [address] [place] [address] Dr. Bertram Paulino EGFR-AF BANGLADESHI >60 Normal >=60 [facility] Comment on above: Performed By: #### C MP, LIPID, TSH #### [facility] [address] [place] [address] Dr. Bertram Paulino EGFR-NON AF BANGLADESHI >60 Normal >=60 [facility] Comment on above: Performed By: #### C MP, LIPID, TSH #### [facility] [address] [place] [address] Dr. Bertram Paulino Globulin (S) [Mass/Vol] 3.1 g/dL Normal [facility] Comment on above: Performed By: #### C MP, LIPID, TSH #### [facility] [address] [place] [address] Dr. Bertram Paulino Glucose [Mass/Vol] 99 mg/dL Normal 74-106 [facility] Comment on above: Performed By: #### C MP, LIPID, TSH #### [facility] [address] [place] [address] Dr. Bertram Paulino Potassium [Moles/Vol] 3.8 mmol/L Normal 3.5-5.1 [facility] Comment on above: Performed By: #### C MP, LIPID, TSH #### [facility] [address] [place] [address] Dr. Bertram Paulino Protein [Mass/Vol] 6.4 g/dL Normal 6.4-8.2 [facility] Comment on above: Performed By: #### C MP, LIPID, TSH #### [facility] [address] [place] [address] Dr. Bertram Paulino Sodium [Moles/Vol] 142 mmol/L Normal 136-145 [facility] Comment on above: Performed By: #### C MP, LIPID, TSH #### [facility] [address] [place] [address] Dr. Bertram Paulino Urea nitrogen [Mass/Vol] 8.0 mg/dL Normal 7.0-18.0 [facility] Comment on above: Performed By: #### C MP, LIPID, TSH #### [facility] [address] [place] [address] Dr. Bertram Paulino Urea nitrogen/Creatinine [Mass ratio] 10.4 mg/mg Normal [facility] Comment on above: Performed By: #### C MP, LIPID, TSH #### [facility] [address] [place] [address] Dr. Bertram Paulino UA (CLEAN/CATCH) RESIDENT SERVICES DIRECTOR/MICRO I F IND.on 05-15-2022 Bilirubin Ql (U) Negative Normal NEGATIVE [facility] Comment on above: Performed By: #### C MP, LIPID, TSH #### [facility] [address] [place] [address] Dr. Bertram Paulino Clarity (U) SL CLOUDY Abnormal CLEAR [facility] Comment on above: Performed By: #### C MP, LIPID, TSH #### [facility] [address] [place] [address] Dr. Bertram Paulino Color (U) LT. YELLOW Normal YELLOW [facility] Comment on above: Performed By: #### C MP, LIPID, TSH #### [facility] [address] [place] [address] Dr. Bertram Paulino Glucose Ql (U) Negative Normal NEGATIVE [facility] Comment on above: Performed By: #### C MP, LIPID, TSH #### [facility] [address] [place] [address] Dr. Bertram Paulino Hemoglobin Ql (U) Negative Normal NEGATIVE [facility] Comment on above: Performed By: #### C MP, LIPID, TSH #### [facility] [address] [place] [address] Dr. Bertram Paulino Ketones Ql (U) Negative Normal NEGATIVE [facility] Comment on above: Performed By: #### C MP, LIPID, TSH #### [facility] [address] [place] [address] Dr. Bertram Paulino LEUKOCYTES Negative Normal NEGATIVE [facility] Comment on above: Performed By: #### C MP, LIPID, TSH #### [facility] [address] [place] [address] Dr. Bertram Paulino Nitrite Ql (U) Negative Normal NEGATIVE [facility] Comment on above: Performed By: #### C MP, LIPID, TSH #### [facility] [address] [place] [address] Dr. Bertram Paulino pH (U) 5.5 [pH] Normal 5-9 [facility] Comment on above: Performed By: #### C MP, LIPID, TSH #### [facility] [address] [place] [address] Dr. Bertram Paulino SPEC GRAVITY 1.010 Normal 1.005-<=1.025 [facility] Comment on above: Performed By: #### C MP, LIPID, TSH #### [facility] [address] [place] [address] Dr. Bertram Paulino UA PROTEIN Negative Normal NEGATIVE/ TRACE [facility] Comment on above: Performed By: #### C MP, LIPID, TSH #### [facility] [address] [place] [address] Dr. Bertram Paulino UR MICRO IND NOT INDICATED Normal [facility] Comment on above: Performed By: #### C MP, LIPID, TSH #### [facility] [address] [place] [address] Dr. Bertram Paulino Urobilinogen Qn (U) 0.2 {Yazmin'U}/dL Normal 0.2 - 1. 0 [facility] Comment on above: Performed By: #### C MP, LIPID, TSH #### [facility] [address] [place] [address] Dr. Bertram Paulino CARDIAC ERASMO ADMITon 022 CK [Catalytic activity/Vol] 117 U/L Normal 26-192 [facility] Comment on above: Performed By: #### C MP, LIPID, TSH #### [facility] [address] [place] [address] Dr. Bertram Paulino CK.MB [Mass/Vol] 2.08 ng/mL Normal <=3.60 [facility] Comment on above: Performed By: #### C MP, LIPID, TSH #### [facility] [address] [place] [address] Dr. Bertram Paulino HSTROP 4.7 pg/mL Normal 4.0-51.3 [facility] Comment on above: Result Comment: CUT- OFF POINTS HAVE BEEN ESTABLISHED BASED ON THE FOURTH UNIVERSAL DEFINITIONS OF MYOCARDIAL INFARCTION. THE UPPER REFERENCE LIMIT (URL) OF TROPONIN, DEFINED THE 99TH PERCENTILE OF cTnI DISTRIBUTION IN A REFERENCE POPULATION, HAS BEEN CONFIRMED THE DECISION THRESHOLD FOR [place] DIAGNOSIS. Performed By: #### C MP, LIPID, TSH #### [facility] [address] [place] [address] Dr. Bertram Paulino JEAN-PIERRE 28 ng/mL Normal 9-82 [facility] Comment on above: Performed By: #### C MP, LIPID, TSH #### [facility] [address] [place] [address] Dr. Bertram Paulino CBC AUTO DIFFon 05-14-2022 BASO # 0.0 103/ul Normal 0.0-0.1 [facility] Comment on above: Performed By: #### C MP, LIPID, TSH #### [facility] [address] [place] [address] Dr. Bertram Paulino Basophils/100 WBC (Bld) 0.5 % Normal 0.2-2.0 [facility] Comment on above: Performed By: #### C MP, LIPID, TSH #### [facility] [address] [place] [address] Dr. Bertram Paulino EO # 0.1 103/ul Normal 0.0-0.7 [facility] Comment on above: Performed By: #### C MP, LIPID, TSH #### [facility] [address] [place] [address] Dr. Bertram Paulino Eosinophils/100 WBC (Bld) 1.6 % Normal 0.9-7.0 [facility] Comment on above: Performed By: #### C MP, LIPID, TSH #### [facility] [address] [place] [address] Dr. Bertram Paulino Erythrocyte distribution width (RBC) [Ratio] 13.4 % Normal 11.0-15.0 [facility] Comment on above: Performed By: #### C MP, LIPID, TSH #### [facility] [address] [place] [address] Dr. Bertram Paulino Hematocrit (Bld) [Volume fraction] 37.4 % Normal 36.0-48.0 [facility] Comment on above: Performed By: #### C MP, LIPID, TSH #### [facility] [address] [place] [address] Dr. Bertram Paulino Hemoglobin (Bld) [Mass/Vol] 12.3 g/dL Normal 12.0-16.0 [facility] Comment on above: Performed By: #### C MP, LIPID, TSH #### [facility] [address] [place] [address] Dr. Bertram Paulino IG # 0.02 10e3/ul Normal 0.00-0.03 [facility] Comment on above: Performed By: #### C MP, LIPID, TSH #### [facility] [address] [place] [address] Dr. Bertram Paulino IG % 0.3 % Normal 0.0-0.5 [facility] Comment on above: Performed By: #### C MP, LIPID, TSH #### [facility] [address] [place] [address] Dr. Bertram Paulino LYMPH # 2.6 103/ul Normal 1.2-3.8 [facility] Comment on above: Performed By: #### C MP, LIPID, TSH #### [facility] [address] [place] [address] Dr. Bertram Paulino Lymphocytes/100 WBC (Bld) 34.5 % Normal 20.5-60.0 [facility] Comment on above: Performed By: #### C MP, LIPID, TSH #### [facility] [address] [place] [address] Dr. Bertram Paulino MANUAL DIFF REQ NO Normal [facility] Comment on above: Performed By: #### C MP, LIPID, TSH #### [facility] [address] [place] [address] Dr. Bertram Paulino MCH (RBC) [Entitic mass] 29.4 pg Normal 26.7-34.0 [facility] Comment on above: Performed By: #### C MP, LIPID, TSH #### [facility] [address] [place] [address] Dr. Bertram Paulino MCHC (RBC) [Mass/Vol] 32.9 g/dL Normal 29.9-35.2 [facility] Comment on above: Performed By: #### C MP, LIPID, TSH #### [facility] [address] [place] [address] Dr. Bertram Paulino MCV (RBC) [Entitic vol] 89.3 fL Normal 81.0-99.0 [facility] Comment on above: Performed By: #### C MP, LIPID, TSH #### [facility] [address] [place] [address] Dr. Bertram Paulino MONO # 0.5 103/ul Normal 0.3-0.8 [facility] Comment on above: Performed By: #### C MP, LIPID, TSH #### [facility] [address] [place] [address] Dr. Bertram Paulino Monocytes/100 WBC (Bld) 6.3 % Normal 1.7-12.0 [facility] Comment on above: Performed By: #### C MP, LIPID, TSH #### [facility] [address] [place] [address] Dr. Bertram Paulino NEUT # 4.3 103/ul Normal 1.4-6.5 [facility] Comment on above: Performed By: #### C MP, LIPID, TSH #### [facility] [address] [place] [address] Dr. Bertram Paulino Neutrophils/100 WBC (Bld) 56.8 % Normal 43.0-75.0 [facility] Comment on above: Performed By: #### C MP, LIPID, TSH #### [facility] [address] [place] [address] Dr. Bertram Paulino Platelet mean volume (Bld) [Entitic vol] 10.7 fL Normal 9.5-13.5 [facility] Comment on above: Performed By: #### C MP, LIPID, TSH #### [facility] [address] [place] [address] Dr. Bertram Paulino PLT 295 103/ul Normal 150-450 [facility] Comment on above: Performed By: #### C MP, LIPID, TSH #### [facility] [address] [address] [address] Bertram Paulino RBC 4.19 106/ul Critically low 4.20-5.40 [facility] Comment on above: Performed By: #### C MP, LIPID, TSH #### [facility] [address] [place] [address] Dr. Bertram Paulino WBC 7.6 103/ul Normal 4.0-11.0 [facility] Comment on above: Performed By: #### C MP, LIPID, TSH #### [facility] [address] [address] [address] Bertram Paulino D-DIMERon 05-14-2022 D-DIMER 0.65 mg/L FEU Critically high <=0.59 [facility] Comment on above: Performed By: #### D DIM #### [facility] [address] [place] [address] Dr. Bertram Paulino D-DIMER COMMENTS SEE BELOW Normal [facility] Comment on above: Result Comment: Incr [...] hospitalization. Performed By: #### D DIM #### [facility] [address] [place] [address] Dr. Bertram Paulino PROF CHEM 8 (BAS METB)on Anion gap [Moles/Vol] 10.7 mmol/L Normal [facility] Comment on above: Performed By: #### C MP, LIPID, TSH #### [facility] [address] [place] [address] Dr. Bertram Paulino Calcium [Mass/Vol] 9.6 mg/dL Normal 8.5-10.1 [facility] Comment on above: Performed By: #### C MP, LIPID, TSH #### [facility] [address] [address] [address] Bertram Paulino Chloride [Moles/Vol] 102 mmol/L Normal 98-107 [facility] Comment on above: Performed By: #### C MP, LIPID, TSH #### [facility] [address] [address] [address] Bertram Paulino CO2 [Moles/Vol] 28.8 mmol/L Normal 21.0-32.0 [facility] Comment on above: Performed By: #### C MP, LIPID, TSH #### [facility] [address] [address] [address] Bertram Paulino Creatinine [Mass/Vol] 0.83 mg/dL Normal 0.55-1.02 [facility] Comment on above: Performed By: #### C MP, LIPID, TSH #### [facility] [address] [address] [address] Bertram Paulino EGFR-AF BANGLADESHI >60 Normal >=60 [facility] Comment on above: Performed By: #### C MP, LIPID, TSH #### [facility] [address] [address] [address] Bertram Paulino EGFR-NON AF BANGLADESHI >60 Normal >=60 [facility] Comment on above: Performed By: #### C MP, LIPID, TSH #### [facility] [address] [address] [address] Bertram Paulino Glucose [Mass/Vol] 128 mg/dL Critically high 74-106 [facility] Comment on above: Performed By: #### C MP, LIPID, TSH #### [facility] [address] [address] [address] Bertram Paulino Potassium [Moles/Vol] 3.5 mmol/L Normal 3.5-5.1 [facility] Comment on above: Performed By: #### C MP, LIPID, TSH #### [facility] [address] [address] [address] Bertram Paulino Sodium [Moles/Vol] 138 mmol/L Normal 136-145 [facility] Comment on above: Performed By: #### C MP, LIPID, TSH #### [facility] [address] [place], [place] [address] Dr. Bertram Paulino Urea nitrogen [Mass/Vol] 8.0 mg/dL Normal 7.0-18.0 [facility] Comment on above: Performed By: #### C MP, LIPID, TSH #### [facility] [address] [place], [place] [address] Dr. Bertram Paulino Urea nitrogen/Creatinine [Mass ratio] 9.6 mg/mg Normal [facility] Comment on above: Performed By: #### C MP, LIPID, TSH #### [facility] [address] [place], [place] [address] Dr. Bertram Paulino XR CHEST 1 Von [...] VANESSA MARTINEZ Date: 2022-05-14 19:51 Normal [facility] CARDIAC ERASMO ADMITon 022 CK [Catalytic activity/Vol] 45 U/L Normal 26-192 [facility] Comment on above: Performed By: #### C MADM, TSH, CMP ####[facility] [id number] [place], [place] [address]OdHazel Paulino CK.MB [Mass/Vol] ng/mL Normal <=3.60 [facility] Comment on above: Performed By: #### C MADM, TSH, CMP ####[facility] [id number] [place], [place] [address]FcDr. Bertram Paulino HSTROP 5.1 pg/mL Normal 4.0-51.3 [facility] Comment on above: Result Comment: CUT- OFF POINTS HAVE BEEN ESTABLISHED BASED ON THE FOURTH UNIVERSAL DEFINITIONS OF MYOCARDIAL INFARCTION. THE UPPER REFERENCE LIMIT (URL) OF TROPONIN, DEFINED THE 99TH PERCENTILE OF cTnI DISTRIBUTION IN A REFERENCE POPULATION, HAS BEEN CONFIRMED THE DECISION THRESHOLD FOR [place] DIAGNOSIS. Performed By: #### C MADM, TSH, CMP ####[facility] [id number] [place], [place] [address]TjDr. Bertram Paulino JEAN-PIERRE 36 ng/mL Normal 9-82 [facility] Comment on above: Performed By: #### C MADM, TSH, CMP ####[facility] [id number] [id number]. Bertram Paulino CBC AUTO DIFFon 05-04-2022 BASO # 0.0 103/ul Normal 0.0-0.1 [facility] Comment on above: Performed By: #### C BC #### [facility] [address] [address] [address] Bertram Paulino Basophils/100 WBC (Bld) 0.6 % Normal 0.2-2.0 [facility] Comment on above: Performed By: #### C BC #### [facility] [address] [address] [address] Bertram Paulino EO # 0.1 103/ul Normal 0.0-0.7 [facility] Comment on above: Performed By: #### C BC #### [facility] [address] [address] [address] Bertram Paulino Eosinophils/100 WBC (Bld) 1.7 % Normal 0.9-7.0 [facility] Comment on above: Performed By: #### C BC #### [facility] [address] [address] [address] Bertram Paulino Erythrocyte distribution width (RBC) [Ratio] 13.2 % Normal 11.0-15.0 [facility] Comment on above: Performed By: #### C BC #### [facility] [address] [address] [address] Bertram Paulino Hematocrit (Bld) [Volume fraction] 40.9 % Normal 36.0-48.0 [facility] Comment on above: Performed By: #### C BC #### [facility] [address] [address] [address] Bertram Paulino Hemoglobin (Bld) [Mass/Vol] 13.6 g/dL Normal 12.0-16.0 [facility] Comment on above: Performed By: #### C BC #### [facility] [address] [place] [address] Dr. Bertram Paulino IG # 0.02 10e3/ul Normal 0.00-0.03 [facility] Comment on above: Performed By: #### C BC #### [facility] [address] [place] [address] Dr. Bertram Paulino IG % 0.3 % Normal 0.0-0.5 [facility] Comment on above: Performed By: #### C BC #### [facility] [address] [place] [address] Dr. Bertram Paulino LYMPH # 2.5 103/ul Normal 1.2-3.8 [facility] Comment on above: Performed By: #### C BC #### [facility] [address] [place] [address] Dr. Bertram Paulino Lymphocytes/100 WBC (Bld) 36.0 % Normal 20.5-60.0 [facility] Comment on above: Performed By: #### C BC #### [facility] [address] [place] [address] Dr. Bertram Paulino MANUAL DIFF REQ NO Normal [facility] Comment on above: Performed By: #### C BC #### [facility] [address] [place] [address] Dr. Bertram Paulino MCH (RBC) [Entitic mass] 29.0 pg Normal 26.7-34.0 [facility] Comment on above: Performed By: #### C BC #### [facility] [address] [place] [address] Dr. Bertram Paulino MCHC (RBC) [Mass/Vol] 33.3 g/dL Normal 29.9-35.2 [facility] Comment on above: Performed By: #### C BC #### [facility] [address] [place] [address] Dr. Bertram Paulino MCV (RBC) [Entitic vol] 87.2 fL Normal 81.0-99.0 [facility] Comment on above: Performed By: #### C BC #### [facility] [address] [address] [address] Bertram Paulino MONO # 0.5 103/ul Normal 0.3-0.8 [facility] Comment on above: Performed By: #### C BC #### [facility] [address] [place] [address] Dr. Bertram Paulino Monocytes/100 WBC (Bld) 6.9 % Normal 1.7-12.0 [facility] Comment on above: Performed By: #### C BC #### [facility] [address] [place] [address] Dr. Bertram Paulino NEUT # 3.8 103/ul Normal 1.4-6.5 [facility] Comment on above: Performed By: #### C BC #### [facility] [address] [place] [address] Dr. Bertram Paulino Neutrophils/100 WBC (Bld) 54.5 % Normal 43.0-75.0 [facility] Comment on above: Performed By: #### C BC #### [facility] [address] [place] [address] Dr. Bertram Paulino Platelet mean volume (Bld) [Entitic vol] 10.3 fL Normal 9.5-13.5 [facility] Comment on above: Performed By: #### C BC #### [facility] [address] [place] [address] Dr. Bertram Paulino PLT 316 103/ul Normal 150-450 [facility] Comment on above: Performed By: #### C BC #### [facility] [address] [place] [address] Dr. Bertram Paulino RBC 4.69 106/ul Normal 4.20-5.40 [facility] Comment on above: Performed By: #### C BC #### [facility] [address] [place] [address] Dr. Bertram Paulino WBC 6.9 103/ul Normal 4.0-11.0 [facility] Comment on above: Performed By: #### C BC #### [facility] [address] [place] [address] Dr. Bertram Paulino Covid-19 PCR (CVDTB)on 04-14 SARS-CoV-2 (COVID-19) RNA KIRT+probe Ql (Unsp spec) Not detected Normal NOT DETECTED [facility] Comment on above: Result Comment: When [...] for this test is supported by the [employer] Controller of Health and Human Service's declaration that [...] By: #### C MP, LIPID, TSH #### [facility] [address] [place] [address] Dr. Bertram Paulino ER URINE PROFILEon Bilirubin Ql (U) Negative Normal NEGATIVE [facility] Comment on above: Performed By: #### C MP, LIPID, TSH #### [facility] [address] [place] [address] Dr. Bertram Paulino Clarity (U) CLEAR Normal CLEAR [facility] Comment on above: Performed By: #### C MP, LIPID, TSH #### [facility] [address] [place] [address] Dr. Bertram Paulino Color (U) YELLOW Normal YELLOW [facility] Comment on above: Performed By: #### C MP, LIPID, TSH #### [facility] [address] [place] [address] Dr. Bertram Paulino ERUAHD A micrscopic examination will be performed if indicated. Normal [facility] Comment on above: Performed By: #### C MP, LIPID, TSH #### [facility] [address] [address] [address] Bertram Paulino Glucose Ql (U) Negative Normal NEGATIVE [facility] Comment on above: Performed By: #### C MP, LIPID, TSH #### [facility] [address] [address] [address] Bertram Paulino Hemoglobin Ql (U) Negative Normal NEGATIVE [facility] Comment on above: Performed By: #### C MP, LIPID, TSH #### [facility] [address] [address] [address] Bertram Paulino Ketones Ql (U) TRACE Abnormal NEGATIVE [facility] Comment on above: Performed By: #### C MP, LIPID, TSH #### [facility] [address] [place] [address] Dr. Bertram Paulino LEUKOCYTES Negative Normal NEGATIVE [facility] Comment on above: Performed By: #### C MP, LIPID, TSH #### [facility] [address] [address] [address] Bertram Paulino Nitrite Ql (U) Negative Normal NEGATIVE [facility] Comment on above: Performed By: #### C MP, LIPID, TSH #### [facility] [address] [address] [address] Bertram Paulino pH (U) 7.5 [pH] Normal 5-9 [facility] Comment on above: Performed By: #### C MP, LIPID, TSH #### [facility] [address] [address] [address] Bertram Paulino SPEC GRAVITY 1.015 Normal 1.005-<=1.025 [facility] Comment on above: Performed By: #### C MP, LIPID, TSH #### [facility] [address] [place] [address] Dr. Bertram Paulino UA PROTEIN TRACE Normal NEGATIVE/ TRACE [facility] Comment on above: Performed By: #### C MP, LIPID, TSH #### [facility] [address] [address] [address] Bertram Paulino UR MICRO IND NOT INDICATED Normal [facility] Comment on above: Performed By: #### C MP, LIPID, TSH #### [facility] [address] [address] [address] Bertram Paulino Urobilinogen Qn (U) 0.2 {Yazmin'U}/dL Normal 0.2 - 1. 0 [facility] Comment on above: Performed By: #### C MP, LIPID, TSH #### [facility] [address] [address] [address] Bertram Paulino PROF 14(COMP METB)on 022 Albumin [Mass/Vol] 3.7 g/dL Normal 3.4-5.0 [facility] Comment on above: Performed By: #### C MADM, TSH, CMP ####[facility] [address] [address]Dr. Bertram Paulino Albumin/Globulin [Mass ratio] 1.0 {ratio} Normal [facility] Comment on above: Performed By: #### C MADM, TSH, CMP ####[facility] [address] [address]Dr. Bertram Paulino ALP [Catalytic activity/Vol] 59 U/L Normal 46-116 [facility] Comment on above: Performed By: #### C MADM, TSH, CMP ####[facility] [address] [address]Dr. Bertram Paulino ALT [Catalytic activity/Vol] 55 U/L Normal 14-59 [facility] Comment on above: Performed By: #### C MADM, TSH, CMP ####[facility] [address] [address]Dr. Bertram Paulino Anion gap [Moles/Vol] 13.6 mmol/L Normal [facility] Comment on above: Performed By: #### C MADM, TSH, CMP ####[facility] [address] [address]Dr. Bertram Paulino AST [Catalytic activity/Vol] 33 U/L Normal 15-37 [facility] Comment on above: Performed By: #### C MADM, TSH, CMP ####[facility] [address] [id number]. Bertram Paulino Bilirubin [Mass/Vol] 0.7 mg/dL Normal 0.2-1.0 [facility] Comment on above: Performed By: #### C MADM, TSH, CMP ####[facility] [address] [address]Dr. Bertram Paulino Calcium [Mass/Vol] 9.3 mg/dL Normal 8.5-10.1 [facility] Comment on above: Performed By: #### C MADM, TSH, CMP ####[facility] [address] [address]Dr. Bertram Paulino Chloride [Moles/Vol] 102 mmol/L Normal 98-107 [facility] Comment on above: Performed By: #### C MADM, TSH, CMP ####[facility] [address] [address]Dr. Bertram Paulino CO2 [Moles/Vol] 28.1 mmol/L Normal 21.0-32.0 [facility] Comment on above: Performed By: #### C MADM, TSH, CMP ####[facility] [address] [address]Dr. Bertram Paulino Creatinine [Mass/Vol] 0.80 mg/dL Normal 0.55-1.02 [facility] Comment on above: Performed By: #### C MADM, TSH, CMP ####[facility] [address] [address]Dr. Bertram Paulino EGFR-AF BANGLADESHI >60 Normal >=60 [facility] Comment on above: Performed By: #### C MADM, TSH, CMP ####[facility] [address] [address]Dr. Bertram Paulino EGFR-NON AF BANGLADESHI >60 Normal >=60 [facility] Comment on above: Performed By: #### C MADM, TSH, CMP ####[facility] [address] [address]Dr. Bertram Paulino Globulin (S) [Mass/Vol] 3.7 g/dL Normal [facility] Comment on above: Performed By: #### C MADM, TSH, CMP ####[facility] [address] [address]Dr. Bertram Paulino Glucose [Mass/Vol] 104 mg/dL Normal 74-106 [facility] Comment on above: Performed By: #### C MADM, TSH, CMP ####[facility] [address] [address]Dr. Bertram Paulino Potassium [Moles/Vol] 3.7 mmol/L Normal 3.5-5.1 [facility] Comment on above: Performed By: #### C MADM, TSH, CMP ####[facility] [address] [address]Dr. Bertram Paulino Protein [Mass/Vol] 7.4 g/dL Normal 6.4-8.2 [facility] Comment on above: Performed By: #### C MADM TSH, CMP ####[facility] [address] [address]Dr. Bertram Paulino Sodium [Moles/Vol] 140 mmol/L Normal 136-145 [facility] Comment on above: Performed By: #### C MADKim TSH, CMP ####[facility] [address] [address]Dr. Bertram Paulino Urea nitrogen [Mass/Vol] 19.0 mg/dL Critically high 7.0-18.0 [facility] Comment on above: Performed By: #### C MADM, TSH, CMP ####[facility] [address] [address]Dr. Bertram Paulino Urea nitrogen/Creatinine [Mass ratio] 23.8 mg/mg Normal [facility] Comment on above: Performed By: #### C MADM TSH, CMP ####[facility] [address] [address]Dr. Bertram Paulino TSHon 05-04-2022 TSH 1.746 uIU/mL Normal 0.358-3.740 [facility] Comment on above: Performed By: #### C MADM, TSH, CMP ####[facility] [address] [address]DrHazel Paulino B-Type Natriuretic Peptideon 12-28-2021 Natriuretic peptide B (Bld) [Mass/Vol] 15.0 pg/mL Normal 5-100 [facility] Comment on above: Result Comment: PERF ORMED BY: [place] [address] PATHOLOGIST [employer] MTZ M.D. Performed By: #### B BREAKFAST MANAGER #### [address] Basic Metabolic Panelon 12-14 Calcium [Mass/Vol] 9.4 mg/dL Normal 8.2-10.2 [facility] Comment on above: Performed By: #### C BC, PT, PTT, HEPATIC, BMP, LIPASE #### [address] Chloride [Moles/Vol] 101 mmol/L Normal 95-[address] [facility] Comment on above: Performed By: #### C BC, PT, PTT, HEPATIC, BMP, LIPASE #### [address] CO2 [Moles/Vol] 21.0 mmol/L Low 22.0-30.0 [facility] Comment on above: Performed By: #### C BC, PT, PTT, HEPATIC, BMP, LIPASE #### [facility] [address] [place] [address] Creatinine [Mass/Vol] 0.54 mg/dL Normal 0.44-1.03 [facility] Comment on above: Performed By: #### C BC, PT, PTT, HEPATIC, BMP, LIPASE #### [facility] [address] [place] [address] [place] Creatinine Clr Calc Pharmacy 153.[address] [facility] Comment on above: Performed By: #### C BC, PT, PTT, HEPATIC, BMP, LIPASE #### [address] Estimated GFR ( Kristen > 60 [facility] Comment on above: Result Comment: GFR estimated reference range: According to KDOQI guidelines, <60 ml/min/1.73m2 is sufficient to diagnose a patient with chronic kidney disease. Performed By: #### C BC, PT, PTT, HEPATIC, BMP, LIPASE #### [facility] [address] Estimated GFR (Non- Am > 60 Normal [facility] Comment on above: Performed By: #### C BC, PT, PTT, HEPATIC, BMP, LIPASE #### [address] Glucose [Mass/Vol] 98 mg/dL Normal 70-100 [facility] Comment on above: Result Comment: [place] Glucose Reference Range is dependent on time and content of last meal. Glucose of more than 200 mg/dL in a nonstressed, ambulatory subject supports the diagnosis of Diabetes Mellitus. ADA recommended reference range Performed By: #### C BC, PT, PTT, HEPATIC, BMP, LIPASE #### [address] Potassium [Moles/Vol] 3.7 mmol/L Normal 3.5-5.1 [facility] Comment on above: Performed By: #### C BC, PT, PTT, HEPATIC, BMP, LIPASE #### [address] Sodium [Moles/Vol] 134 mmol/L Low 136-146 [facility] Comment on above: Performed By: #### C BC, PT, PTT, HEPATIC, BMP, LIPASE #### [address] Urea nitrogen [Mass/Vol] 4 mg/dL Low 9-23 [facility] Comment on above: Performed By: #### C BC, PT, PTT, HEPATIC, BMP, LIPASE #### [address] abdomen pelvis w conon CT abdomen pelvis w con [facility] [place] [address] [place] [address] CT Scan Report Signed Patient: Lu Cancino MR#: [id number] : 1970 Acct:[id number] Age/Sex: 50 / F ADM Date: 12/28/21 Loc: ER Room: Type: [facility] ER Attending Dr: Ordering Provider: Ricardo Ricardo DO Date of Service: 12/28/21 CT/CT abdomen pelvis w con: Abdominal Pain Copies to: Ricardo Anne DO [place] CT abdomen pelvis w con 12/28/2021 8:05 [...] Erasmo Brooks M.D.12/28/2021 8:14 PM Dictation Location: [place] [address] Transcribed By: [facility] 12/28/212013 Dictated By: Erasmo Brooks II, MD 12/28/212006 Signed By: 12/28/212013 Normal [facility] Complete Blood Count Auto Di ffon 12-28-2021 Basophils (Bld) [#/Vol] 0.0 10*3/uL Normal 0.0-0.2 [facility] Comment on above: Result Comment: PERF ORMED BY: [place] [address] PATHOLOGIST [employer] MTZ M.D. Performed By: #### C BC, PT, PTT, HEPATIC, BMP, LIPASE #### [address] Basophils/100 WBC (Bld) 0.9 % Normal . [facility] Comment on above: Performed By: #### C BC, PT, PTT, HEPATIC, BMP, LIPASE #### [address] Eosinophils (Bld) [#/Vol] 0.0 10*3/uL Normal 0.0-0.45 [facility] Comment on above: Performed By: #### C BC, PT, PTT, HEPATIC, BMP, LIPASE #### [address] Eosinophils/100 WBC (Bld) 0.7 % Normal . [facility] Comment on above: Performed By: #### C BC, PT, PTT, HEPATIC, BMP, LIPASE #### [address] Erythrocyte distribution width (RBC) [Ratio] 14.9 % Normal 11.9-15.3 [facility] Comment on above: Performed By: #### C BC, PT, PTT, HEPATIC, BMP, LIPASE #### [address] Hematocrit (Bld) [Volume fraction] 37.6 % Normal 34.0-46.4 [facility] Comment on above: Performed By: #### C BC, PT, PTT, HEPATIC, BMP, LIPASE #### [address] Hemoglobin (Bld) [Mass/Vol] 12.8 g/dL Normal 11.8-15.4 [facility] Comment on above: Performed By: #### C BC, PT, PTT, HEPATIC, BMP, LIPASE #### [address] Lymphocytes (Bld) [#/Vol] 1.7 10*3/uL Normal 1.00-4.8 [facility] Comment on above: Performed By: #### C BC, PT, PTT, HEPATIC, BMP, LIPASE #### [address] Lymphocytes/100 WBC (Bld) 34.3 % Normal . [facility] Comment on above: Performed By: #### C BC, PT, PTT, HEPATIC, BMP, LIPASE #### [address] MCH (RBC) [Entitic mass] 30.2 pg Normal 24.7-34.3 [facility] Comment on above: Performed By: #### C BC, PT, PTT, HEPATIC, BMP, LIPASE #### [address] MCV (RBC) [Entitic vol] 88.6 fL Normal 80-100 [facility] Comment on above: Performed By: #### C BC, PT, PTT, HEPATIC, BMP, LIPASE #### [address] Mean Corpuscular HGB Conc 34.1 g/dL Normal 32.0-35.0 [facility] Comment on above: Performed By: #### C BC, PT, PTT, HEPATIC, BMP, LIPASE #### [address] Monocytes (Bld) [#/Vol] 0.6 10*3/uL Normal 0.0-0.8 [facility] Comment on above: Performed By: #### C BC, PT, PTT, HEPATIC, BMP, LIPASE #### [address] Monocytes/100 WBC (Bld) 12.1 % Normal . [facility] Comment on above: Performed By: #### C BC, PT, PTT, HEPATIC, BMP, LIPASE #### [address] Neutrophils (Bld) [#/Vol] 2.5 10*3/uL Normal 1.8-7.7 [facility] Comment on above: Performed By: #### C BC, PT, PTT, HEPATIC, BMP, LIPASE #### [address] Neutrophils/100 WBC (Bld) 52.0 % Normal . [facility] Comment on above: Performed By: #### C BC, PT, PTT, HEPATIC, BMP, LIPASE #### [address] Nucleated RBC/100 WBC (Bld) [Ratio] 0.0 % Normal 0-0.5 [facility] Comment on above: Performed By: #### C BC, PT, PTT, HEPATIC, BMP, LIPASE #### [address] Platelet mean volume (Bld) [Entitic vol] 7.8 fL Normal 6.3-10.7 [facility] Comment on above: Performed By: #### C BC, PT, PTT, HEPATIC, BMP, LIPASE #### [place] [address] [place] Platelets (Bld) [#/Vol] 458 10*3/uL High 150-450 [facility] Comment on above: Performed By: #### C BC, PT, PTT, HEPATIC, BMP, LIPASE #### [address] RBC (Bld) [#/Vol] 4.25 10*6/uL Normal 3.60-5.[address] [facility] Comment on above: Performed By: #### C BC, PT, PTT, HEPATIC, BMP, LIPASE #### [facility] [address] [place] [address] WBC (Bld) [#/Vol] 4.9 10*3/uL Normal 4.5-11.0 [facility] Comment on above: Performed By: #### C BC, PT, PTT, HEPATIC, BMP, LIPASE #### [facility] [address] [place] [address] ECG 12 lead ECGon 12-28-2021 ECG 12 lead ECG [facility] [place] [address] [place] [address] Electrocardiograph Report Signed Patient: Lu Cancino MR#: [id number] : 1970 Acct:[id number] Age/Sex: 50 / F ADM Date: 12/28/21 Loc: ER Room: Type: [facility] ER Attending Dr: Ordering Provider: Ricardo [...] sinus rhythm Confirmed by Ricardo RICARDO DO ([id number]) on 12/28/2021 9:15:05 PM Referred By: Electronically Signed By:Ricardo RICARDO DO Transcribed By: MUS Signed By Ricardo Ricardo DO 0 12/28/212114 Normal [facility] HCG,Urineon 12-28-2021 Beta HCG ( test) Ql (U) Negative Normal [facility] Comment on above: Order Comment: Name Collection Type:: Clean-Voided Midstream Result Comment: PERF ORMED BY: [place] [address] PATHOLOGIST [employer] MTZ M.D. Performed By: #### C BC, PT, PTT, HEPATIC, BMP, LIPASE #### [facility] [address] Hepatic Panelon 12-28-2021 Albumin [Mass/Vol] 4.0 g/dL Normal 3.2-5.5 [facility] Comment on above: Performed By: #### C BC, PT, PTT, HEPATIC, BMP, LIPASE #### [facility] [address] Albumin/Globulin [Mass ratio] 1.6 {ratio} Normal [facility] Comment on above: Performed By: #### C BC, PT, PTT, HEPATIC, BMP, LIPASE #### [address] ALP [Catalytic activity/Vol] 38 U/L Normal 32-92 [facility] Comment on above: Performed By: #### C BC, PT, PTT, HEPATIC, BMP, LIPASE #### [address] ALT [Catalytic activity/Vol] 44 U/L Normal 10-60 [facility] Comment on above: Performed By: #### C BC, PT, PTT, HEPATIC, BMP, LIPASE #### [address] AST [Catalytic activity/Vol] 38 U/L Normal 10-42 [facility] Comment on above: Performed By: #### C BC, PT, PTT, HEPATIC, BMP, LIPASE #### [address] Bilirubin [Mass/Vol] 0.8 mg/dL Normal 0.3-1.[address] [facility] Comment on above: Performed By: #### C BC, PT, PTT, HEPATIC, BMP, LIPASE #### [address] Bilirubin,Indirect 0.7 mg/dL Normal [facility] Comment on above: Performed By: #### C BC, PT, PTT, HEPATIC, BMP, LIPASE #### [address] Bilirubin.indirect [Mass/Vol] 0.1 mg/dL Normal 0.0-0.4 [facility] Comment on above: Performed By: #### C BC, PT, PTT, HEPATIC, BMP, LIPASE #### [address] Globulin (S) [Mass/Vol] 2.5 g/dL Normal [facility] Comment on above: Performed By: #### C BC, PT, PTT, HEPATIC, BMP, LIPASE #### [address] Protein [Mass/Vol] 6.5 g/dL Normal 6.1-7.9 [facility] Comment on above: Performed By: #### C BC, PT, PTT, HEPATIC, BMP, LIPASE #### [address] Lipaseon 12-28-2021 Lipase [Catalytic activity/Vol] 29.0 U/L Normal 22-51 [facility] Comment on above: Result Comment: PERF ORMED BY: [place] [address] PATHOLOGIST [employer] MTZ M.D. Performed By: #### C BC, PT, PTT, HEPATIC, BMP, LIPASE #### [address] Partial Thromboplastin Timeo n 12-28-2021 aPTT Coag (Bld) [Time] 30.4 s Normal 25.1-36.5 [facility] Comment on above: Result Comment: PERF ORMED BY: [place] [address] PATHOLOGIST [employer] MTZ M.D. Performed By: #### C BC, PT, PTT, HEPATIC, BMP, LIPASE #### [address] Prothrombin Time INRon 12-28 INR Coag (PPP) [Relative time] 1.0 {INR} Normal [facility] Comment on above: Result Comment: INR Therapeutic [...] BC, PT, PTT, HEPATIC, BMP, LIPASE #### [facility] [address] PT Coag (PPP) [Time] 11.8 s Normal 9.0-12.[address] [facility] Comment on above: Performed By: #### C BC, PT, PTT, HEPATIC, BMP, LIPASE #### [facility] [address] Urinalysison 12-28-2021 Appearance (U) Clear Normal Clear [facility] Comment on above: Order Comment: Name Collection Type:: Clean-Voided Midstream Performed By: #### C BC, PT, PTT, HEPATIC, BMP, LIPASE #### [address] Bilirubin,Urine Negative Normal Negative [facility] Comment on above: Order Comment: Name Collection Type:: Clean-Voided Midstream Performed By: #### C BC, PT, PTT, HEPATIC, BMP, LIPASE #### [address] Color (U) Yellow Normal Yellow [facility] Comment on above: Order Comment: Name Collection Type:: Clean-Voided Midstream Performed By: #### C BC, PT, PTT, HEPATIC, BMP, LIPASE #### [address] Glucose Ql (U) Normal Normal Normal [facility] Comment on above: Order Comment: Name Collection Type:: Clean-Voided Midstream Performed By: #### C BC, PT, PTT, HEPATIC, BMP, LIPASE #### [address] Ketones Ql (U) Negative Normal Negative [facility] Comment on above: Order Comment: Name Collection Type:: Clean-Voided Midstream Performed By: #### C BC, PT, PTT, HEPATIC, BMP, LIPASE #### [address] Leukocyte esterase Test strip Ql (U) Negative Normal Negative [facility] Comment on above: Order Comment: Name Collection Type:: Clean-Voided Midstream Performed By: #### C BC, PT, PTT, HEPATIC, BMP, LIPASE #### [address] Nitrite,Urine Negative Normal Negative [facility] Comment on above: Order Comment: Name Collection Type:: Clean-Voided Midstream Performed By: #### C BC, PT, PTT, HEPATIC, BMP, LIPASE #### [address] Occult Blood,Urine Negative Normal Negative [facility] Comment on above: Order Comment: Name Collection Type:: Clean-Voided Midstream Performed By: #### C BC, PT, PTT, HEPATIC, BMP, LIPASE #### [address] pH (U) 7.5 [pH] Normal 5.0-9.0 [facility] Comment on above: Order Comment: Name Collection Type:: Clean-Voided Midstream Performed By: #### C BC, PT, PTT, HEPATIC, BMP, LIPASE #### [address] Protein,Urine Negative Normal Negative [facility] Comment on above: Order Comment: Name Collection Type:: Clean-Voided Midstream Performed By: #### C BC, PT, PTT, HEPATIC, BMP, LIPASE #### [address] Specificy [place],Urine 1.004 Normal 1.001-1.030 [facility] Comment on above: Order Comment: Name Collection Type:: Clean-Voided Midstream Performed By: #### C BC, PT, PTT, HEPATIC, BMP, LIPASE #### [address] Urobilinogen,Urine Normal Normal Normal [facility] Comment on above: Order Comment: Name Collection Type:: Clean-Voided Midstream Performed By: #### C BC, PT, PTT, HEPATIC, BMP, LIPASE #### [facility] [address] [id number] [facility] XR chest 1V portableon 12-28 XR chest 1V portable [facility] Main [place] [address] [id number] XRay Report Signed Patient: Lu Cancino MR#: [id number] : 1970 Acct:[id number] Age/Sex: 50 / F ADM Date: 12/28/21 [...] Erasmo Brooks M.D.12/28/2021 6:18 PM Dictation Location: [place] [address] Transcribed By: [facility] 12/28/211817 Dictated By: Erasmo Brooks II, MD 12/28/211816 Signed By: 12/28/211817 Normal [facility] ANTI DNAon 04-09-2019 ANTI DNA <1:10 Normal <1:10 [facility] Comment on above: Performed By: #### 1 0097, 31431, [id number] #### [facility] [address] ANTI-ENAon 04-09-2019 ANTI SM Negative Normal NEG,NEGATIVE, Neg [facility] Comment on above: Performed By: #### 1 0097, 32649, 16259 #### [facility] [address] [place] [address], [facility] ANTI SM/ANTIRNP Negative Normal NEG,NEGATIVE , Neg [facility] Comment on above: Performed By: #### 1 0097, 28801, 80949 #### [facility] [address] C REACTIVE PROTEINon 019 CRP mass conc 8.0 mg/L High 0.0-7.0 [facility] Comment on above: Performed By: #### 6 1405 #### [facility] [address] CHROMATIN ANTIBODY, IGG 2005 287on 04-09-2019 CHROMATIN ANTIBODY, IGG 4 Units Normal 0-19 [facility] Comment on above: Result Comment: INTE [...] when antibody levels are high. Performed by [email or web address], [address] [place] [id number] [email or web address], Sam Brito MD - Lab. Director CYCLIC CITRULLINATED PEPTIDE AB 02604ws 04-09-2019 CYCLIC CIT PEP 5 Units Normal 0-19 [facility] Comment on above: Result Comment: INTE RPRETIVE [...] be monitored and testing repeated. Performed by [email or web address], [address] [place] [id number] [email or web address], Sam Brito MD - Lab. Director SEDIMENTATION RATEon 019 SED RATE 34 mm/hr High 0-20 [facility] Comment on above: Performed By: #### 5 6506 #### [facility] [address] SJOGRENS ANTIBODIESon 2018 SS-A Negative Normal NEG,NEGATIVE, Neg [facility] Comment on above: Performed By: #### 1 0097, 00999, 46747 #### [facility] [address] SS-B Negative Normal NEG,NEGATIVE, Neg [facility] Comment on above: Performed By: #### 1 0097, 65393, 64947 #### [facility] [address] Vital Signs Date Time Vital Sign Value Performing Clinician Facility 10-28-2024 13:08-0500 Body height 157.5 cm Melani Deras BREAKFAST MANAGER Work Phone: [facility] 10-28-2024 13:08-0500 Body mass index (BMI) [Ratio] 49.64 kg/m2 Melani Deras BREAKFAST MANAGER Work Phone: [facility] 10-28-2024 13:08-0500 Body temperature 98.29 [degF] Melani Deras BREAKFAST MANAGER Work Phone: [facility] 10-28-2024 13:08-0500 Body weight 123.11 kg Melani Deras BREAKFAST MANAGER Work Phone: [facility] 10-28-2024 13:08-0500 Diastolic blood pressure 78 mm[Hg] Melani Bez BREAKFAST MANAGER Work Phone: [facility] 10-28-2024 13:08-0500 Heart rate 75 /min Melani Bez BREAKFAST MANAGER Work Phone: [facility] 10-28-2024 13:08-0500 Respiratory rate 19 /min Melani Bez BREAKFAST MANAGER Work Phone: [facility] 10-28-2024 13:08-0500 SaO2% (BldA) [Mass fraction] 96 % Melani Deras BREAKFAST MANAGER Work Phone: [facility] 10-28-2024 13:08-0500 Systolic blood pressure 142 mm[Hg] Melani Deras BREAKFAST MANAGER Work Phone: [facility] 09-20-2024 18:52-0500 Body height 157.48 cm [facility] 09-20-2024 18:52-0500 Body mass index (BMI) [Ratio] 49.9 kg/m2 [facility] 09-20-2024 18:52-0500 Body temperature 98.3 [degF] [facility] 09-20-2024 18:52-0500 Body weight 123.83 kg [facility] 09-20-2024 18:52-0500 Diastolic blood pressure 72 mm[Hg] [facility] 09-20-2024 18:52-0500 Heart rate 83 /min [facility] 09-20-2024 18:52-0500 Respiratory rate 16 /min [facility] 09-20-2024 18:52-0500 SaO2% (BldA) [Mass fraction] 97 % [facility] 09-20-2024 18:52-0500 Systolic blood pressure 110 mm[Hg] [facility] 08-07-2024 13:42-0400 Body height 157.5 cm Melani Bez BREAKFAST MANAGER Work Phone: [facility] 08-07-2024 13:42-0400 Body mass index (BMI) [Ratio] 50.08 kg/m2 Melanianne Wiseholz BREAKFAST MANAGER Work Phone: [facility] 08-07-2024 13:42-0400 Body temperature 98.29 [degF] Melanianne Bez BREAKFAST MANAGER Work Phone: [facility] 08-07-2024 13:42-0400 Body weight 124.19 kg Melani Valehholz BREAKFAST MANAGER Work Phone: [facility] 08-07-2024 13:42-0400 Diastolic blood pressure 78 mm[Hg] Melani Billieholz BREAKFAST MANAGER Work Phone: [facility] 08-07-2024 13:42-0400 Heart rate 83 /min Melani Indianaz BREAKFAST MANAGER Work Phone: [facility] 08-07-2024 13:42-0400 Respiratory rate 21 /min Melani Aichholz BREAKFAST MANAGER Work Phone: [facility] 08-07-2024 13:42-0400 SaO2% (BldA) [Mass fraction] 97 % Melani Billieholz BREAKFAST MANAGER Work Phone: [facility] 08-07-2024 13:42-0400 Systolic blood pressure 120 mm[Hg] Melani Billieholz BREAKFAST MANAGER Work Phone: [facility] 07-10-2024 13:03-0400 Body mass index (BMI) [Ratio] 49.2 kg/m2 Jackie NAPIER Work Phone: [facility] 07-10-2024 13:03-0400 Body weight 122.02 kg Jackie NAPIER Work Phone: [facility] 07-10-2024 13:03-0400 Diastolic blood pressure 74 mm[Hg] Jackie NAPIER Work Phone: [facility] 07-10-2024 13:03-0400 Systolic blood pressure 122 mm[Hg] Jackie Mary KARTHIKEYAN Work Phone: [facility] 08-26-2023 13:10-0400 Body height 157.48 cm Selene Martinez Other [employer] Other 08-26-2023 13:10-0400 Body mass index (BMI) [Ratio] 49.01 kg/m2 Selene Martinez Other [employer] Other 08-26-2023 13:10-0400 Body temperature 97.9 [degF] Selene Martinez Other [employer] Other 08-26-2023 13:10-0400 Body weight 121.56 kg Selene Martinez Other [employer] Other 08-26-2023 13:10-0400 Diastolic blood pressure 71 mm[Hg] Selene Martinez Other [employer] Other 08-26-2023 13:10-0400 Respiratory rate 18 /min Selene Martinez Other [employer] Other 08-26-2023 13:10-0400 SaO2% (BldA) [Mass fraction] 99 % Selene Martinez Other [employer] Other 08-26-2023 13:10-0400 Systolic blood pressure 142 mm[Hg] Selene Michelle Other [employer] Other 05-31-2022 18:00-0400 Body height 157.48 cm Rose De Other [employer] Other 05-31-2022 18:00-0400 Body mass index (BMI) [Ratio] 45.72 kg/m2 Rose De Other [employer] Other 05-31-2022 18:00-0400 Body temperature 98.3 [degF] Rose Santino Other [employer] Other 05-31-2022 18:00-0400 Body weight 113.4 kg Rose Santino Other [employer] Other 05-31-2022 18:00-0400 Respiratory rate 18 /min Rose De Other [employer] Other 05-31-2022 18:00-0400 SaO2% (BldA) [Mass fraction] 95 % Rose De Other [employer] Other 09-10-2021 13:45-0400 Body height 157.48 cm Selene Martinez Other [employer] Other 09-10-2021 13:45-0400 Body mass index (BMI) [Ratio] 45.72 kg/m2 Selene Changmond Other [employer] Other 09-10-2021 13:45-0400 Body temperature 96.8 [degF] Selene Michelle Other [employer] Other 09-10-2021 13:45-0400 Body weight 113.4 kg Selene Michelle Other [employer] Other 09-10-2021 13:45-0400 Respiratory rate 18 /min Selene Michelle Other [employer] Other 09-10-2021 13:45-5254 SaO2% (BldA) [Mass fraction] 97 % Selene Martinez Other [employer] Other Encounters Encounter Date Encounter Type Care Provider Facility Start: 11-19-2024 End: 11-19-2024 Orders Only Peri Sandoval BREAKFAST MANAGER Work Phone: [facility] 210 Comment on above: Lumbar radiculopathy (Primary Dx); Idiopathic progressive neuropathy Start: 11-17-2024 End: 11-17-2024 Refill Melani Aicbaldomeroz BREAKFAST MANAGER Work Phone: [facility] Comment on above: Gastroesophageal ref lux disease, unspecified whether esophagitis present Start: 11-14-2024 End: 11-15-2024 Refill Melani Aicruiholz BREAKFAST MANAGER Work Phone: [facility] Comment on above: Edema of lower extre mity Fibromyalgia (Primar y Dx) Idiopathic progressi ve neuropathy Start: 10-28-2024 End: 10-28-2024 Bamboo flowsheet Melani Aicruiholz BREAKFAST MANAGER Work Phone: [facility] Start: 10-28-2024 End: 10-28-2024 Bamboo flowsheet Melani Aichholz BREAKFAST MANAGER Work Phone: [facility] Start: 10-28-2024 End: 10-28-2024 ambulatory MELANI AICHHOLZ Not Available Start: 10-28-2024 End: 10-28-2024 Office outpatient visit 15 minutes Melani Billieholz BREAKFAST MANAGER Work Phone: [facility] Comment on above: Other chest pain (Pr imary Dx); Gastroesophageal reflux disease, unspecified whether esophagitis present; Idiopathic progressive neuropathy; FELICE (obstructive sleep apnea); Edema of lower extremity; Morbid obesity (CMS/HCC); Prediabetes; Fibromyalgia; Bipolar II disorder, most recent episode major depressive (CMS/HCC); Vitamin deficiency; Chronic dental infection Start: 09-20-2024 End: 09-20-2024 ambulatory [facility] Work Phone: Start: 09-20-2024 End: 09-20-2024 Patient encounter procedure [facility] [place] Work Phone: Start: 09-08-2024 End: 09-10-2024 Refill Melani Aichholz BREAKFAST MANAGER Work Phone: [facility] Comment on above: Fibromyalgia (Primar y Dx); Gastroesophageal reflux disease, unspecified whether esophagitis present; Edema of lower extremity Start: 09-07-2024 End: 09-09-2024 Refill Melani Aichholz BREAKFAST MANAGER Work Phone: [facility] Comment on above: Gastroesophageal ref lux disease, unspecified whether esophagitis present Start: 09-06-2024 End: 09-06-2024 ambulatory EDDY LORENZANA Not Available Start: 09-02-2024 End: 09-02-2024 Telephone encounter Eddy Lorenzana MD Work Phone: [facility] 210 Start: 08-24-2024 End: 08-25-2024 Refill Mahesh Rocha MD Work Phone: [facility] Comment on above: Vitamin deficiency ( Primary Dx) Start: 08-09-2024 End: 08-09-2024 Refill Melani Aichholz BREAKFAST MANAGER Work Phone: [facility] Comment on above: Dental infection (Pr imary Dx) Start: 08-07-2024 End: 08-07-2024 Office outpatient visit 25 minutes Melani Aichholz BREAKFAST MANAGER Work Phone: [facility] Comment on above: Prediabetes (Primary Dx); FELICE (obstructive sleep apnea); Essential hypertension (CMS/HCC); Fibromyalgia; Edema of lower extremity; Morbid obesity (CMS/HCC); Bipolar II disorder, most recent episode major depressive (CMS/HCC); PELON (generalized anxiety disorder) (CMS/HCC); Screening for colon cancer Start: 08-07-2024 End: 08-07-2024 ambulatory MELANI AICHHOLZ Not Available Start: 07-10-2024 End: 07-10-2024 Bamboo flowsheet Jackie NAPIER Work Phone: [facility] Start: 07-10-2024 End: 07-15-2024 Bamboo flowsheet Jackie NAPIER Work Phone: [facility] Start: 07-10-2024 End: 07-15-2024 Clinisync Result Encounter Generic External Data Provider [facility] External Department Unsolicited Start: 07-10-2024 End: 07-10-2024 Patient encounter procedure Jackie NAPIER Work Phone: [facility] Start: 07-10-2024 End: 07-10-2024 Periodic preventive med est patient 40-64yrs Jackie NAPIER Work Phone: [facility] Comment on above: Well woman exam with routine gynecological exam; Osteoporosis, post-menopausal ([facility]) Start: 07-10-2024 End: 07-10-2024 ambulatory JACKIE GOODRICH Not Available Start: 07-05-2024 End: 07-08-2024 Refill Melani Aichholz BREAKFAST MANAGER Work Phone: [facility] Comment on above: Gastroesophageal ref lux disease, unspecified whether esophagitis present Idiopathic progressi ve neuropathy Start: 07-03-2024 End: 07-03-2024 Refill Melani Aichholz BREAKFAST MANAGER Work Phone: [facility] Comment on above: Anxiety Start: 06-30-2024 End: 06-30-2024 [facility] [...] Available Start: 01-08-2024 End: 01-08-2024 ambulatory ELVIS M BRONSON Not Available Start: 12-21-2023 End: 12-21-2023 ambulatory EDDYKOREY LORENZANA Not Available Start: 12-20-2023 Refill Eddy valentino MD Work Phone: [facility] Comment on above: Myalgia; Numbness and tingling; Weakness Start: 12-19-2023 End: 12-19-2023 ambulatory EBEN DUQUE Not Available Start: 12-15-2023 End: 12-15-2023 Chart abstracting Elvis Bronson [facility] Work Phone: [facility] Comment on above: Bipolar II disorder, most recent episode major depressive ([facility]) Start: 12-15-2023 End: 12-15-2023 ambulatory ELVIS Alvarez BRONSON Not Available Start: 11-23-2023 End: 11-23-2023 ambulatory ELVIS BRONSON Not Available Start: 11-02-2023 End: 11-02-2023 ambulatory EDDY Raul ALEXANDRE Not Available Start: 08-26-2023 End: 08-26-2023 ambulatory Selene Martinez Other [employer] Other Start: 08-26-2023 Office outpatient vi sit 15 minutes Selene Martinez [facility] [place] Start: 05-23-2023 End: 05-23-2023 ambulatory FRACISCO SKAGGS [facility] Start: 04-11-2023 Letter encounter Lili black Start: 03-21-2023 End: 03-22-2023 ambulatory [employer] MELANI AICHHOLZ Facility:[facility] Start: 01-23-2023 End: 01-23-2023 ambulatory [employer] MELANI AICHHOLZ Facility:[facility] Start: 01-12-2023 End: 01-13-2023 ambulatory MICHELL DERAS Facility:[facility] Start: 01-12-2023 Letter encounter jobRui sanchezrui Start: 08-09-2022 End: 08-10-2022 ambulatory SLADE FONG . Facility:[facility] Start: 07-19-2022 End: 07-20-2022 ambulatory MICHELL DERAS Facility:[facility] Start: 07-15-2022 End: 07-16-2022 ambulatory [employer] MELANI DERAS Facility:[facility] Start: 07-10-2022 End: 07-11-2022 ambulatory [employer] MELANI DERAS Facility:[facility] Start: 07-05-2022 End: 07-05-2022 Phys/qhp telephone evaluation 21-30 min Lucía Calderon APRN-[employer] Work Phone: [facility] Comment on above: Chest pain, unspecif ied type (Primary Dx); [id number] condition Start: 07-05-2022 End: 07-08-2022 ambulatory UNKNOWN PROVIDER [facility] Start: 06-30-2022 End: 07-01-2022 ambulatory [employer] MELANI DERAS Facility:[facility] Start: 06-15-2022 End: 06-16-2022 ambulatory [employer] MELANI DERAS Facility:[facility]1 Start: 06-04-2022 End: 06-04-2022 ambulatory [employer] MELANI DERAS Facility:[facility]1 Start: 05-31-2022 End: 05-31-2022 ambulatory Rose De Other [employer] Other Start: 05-31-2022 Office outpatient vi sit 25 minutes Rose De [facility] [place] Start: 05-15-2022 End: 05-15-2022 ambulatory [employer] MELANI DERAS Facility:[facility]1 Start: 05-04-2022 End: 05-04-2022 ambulatory ALEJANDRA PHELPS . Facility:[facility] Start: 04-04-2022 Letter encounter Lili black Start: 03-24-2022 End: 03-24-2022 Phys/qhp telephone evaluation 11-20 min Lucía Calderon APRN-[employer] Work Phone: [facility] Comment on above: Shortness of breath (Primary Dx); [id number] condition Start: 12-28-2021 End: 12-28-2021 Emergency department patient visit Ricardo Ricardo Facility:[facility] Start: 09-10-2021 (URG) Urgent Care Visit Selene Padmini cui [facility] [place] Procedures Date Procedure Procedure Detail Performing Clinician Start: 10-28-2024 Hemoglobin glycosyla yolanda a1c Melani Deras BREAKFAST MANAGER Work Phone: Start: 07-10-2024 IGP,APTIMA HPV,AGE GDLN Jackie NAPIER Work Phone: Start: 07-10-2024 Microscopic observat ion [Identifier] in Cervix by Cyto stain Melani Deras NP Work Phone: Start: 05-28-2024 Mammography Melani xiong NP Work Phone: Start: 09-26-2017 Microscopic observat ion [Identifier] in Cervix by Cyto stain Melani Deras BREAKFAST MANAGER Work Phone: Plan of Treatment Date Care Activity Detail Author Start: 07-10-2027 Screening for malign ant neoplasm of cervix [facility] Start: 05-28-2025 Screening for malign ant neoplasm of breast Mammogram [facility] Start: 12-24-2024 End: 12-24-2024 Patient encounter procedure 12/24/2024 1:20 PM EST Office Visit [facility] [address] [place] [address] Melani Deras NP [address] [place] [address] [facility] Start: 10-28-2024 End: 10-28-2025 25-hydroxyvitamin D3 [Mass/volume] in Serum or Plasma Vitamin D 25 hydroxy Lab Routine Vitamin deficiency Expected: 10/28/2024 (Approximate), Expires: 10/28/2025 [facility] Comment on above: Expected: 10/28/2024 (Approximate), Expires: 10/28/2025 Start: 10-28-2024 End: 10-28-2025 Hepatic function 2000 panel - Serum or Plasma Hepatic function panel Lab Routine Prediabetes Expected: 10/28/2024 (Approximate), Expires: 10/28/2025 [facility] Comment on above: Expected: 10/28/2024 (Approximate), Expires: 10/28/2025 Start: 10-28-2024 End: 10-28-2025 Lipid 1996 panel - Serum or Plasma Lipid panel Lab Routine Prediabetes Expected: 10/28/2024 (Approximate), Expires: 10/28/2025 [facility] Work Phone: Comment on above: Expected: 10/28/2024 (Approximate), Expires: 10/28/2025 Start: 10-28-2024 End: 10-28-2025 Microalbumin/Creatinine panel in random Urine Microalbumin / creatinine, urine ratio Lab Routine Prediabetes Expected: 10/28/2024 (Approximate), Expires: 10/28/2025 [facility] Comment on above: Expected: 10/28/2024 (Approximate), Expires: 10/28/2025 Start: 10-28-2024 End: 10-28-2025 Urate [Mass/volume] in Serum or Plasma Uric acid Lab Routine Fibromyalgia Expected: 10/28/2024 (Approximate), Expires: 10/28/2025 [facility] Comment on above: Expected: 10/28/2024 (Approximate), Expires: 10/28/2025 Start: 10-28-2024 End: 10-28-2024 Patient encounter procedure 10/28/2024 1:00 PM EST Office Visit [facility] [address] [place] [phone] Melani Deras NP [address] [place] [address] [facility] Start: 09-19-2024 End: 09-19-2024 Patient encounter procedure 09/19/2024 2:20 PM EST Office Visit [facility] [address] [place] [address] Eddy Lorenzana MD [address] [facility] [address] [place] [address], [place] [id number] [facility] Start: 09-06-2024 End: 09-06-2024 Telemedicine consultation with patient 09/06/2024 1:10 PM EDT Telemedicine [facility] [address] [facility] [address] [place] [address] Eddy Lorenzana MD [address] [facility] [address], [place] [id number] [facility] Start: 08-13-2024 Influenza vaccination Influenza Vacc ine (#1) [facility] Start: 08-07-2024 End: 08-07-2025 Noninvasive colorectal cancer DNA and occult blood screening [Presence] in Stool Cologuard colon cancer screening Lab Routine Screening for colon cancer Expected: 08/07/2024 (Approximate), Expires: 08/07/2025 [facility] Work Phone: Comment on above: Expected: 08/07/2024 (Approximate), Expires: 08/07/2025 Start: 07-25-2024 End: 07-25-2024 Patient encounter procedure 07/25/2024 1:00 PM EDT Office Visit [facility] [address] [place] [address] Melani Deras, WILBERTO [address] [place] [address] [facility] Start: 07-10-2024 End: 07-10-2025 DXA Skeletal system Views for bone density DEXA bone density Imaging Routine Osteoporosis, post-menopausal ([facility]/HCC) Expected: 07/10/2024 (Approximate), Expires: 07/10/2025 [facility] Work Phone: Comment on above: Expected: 07/10/2024 (Approximate), Expires: 07/10/2025 Start: 07-10-2024 End: 07-10-2024 Patient encounter procedure [facility] Comment on above: Arrived Start: 12-25-2023 End: 12-25-2023 Clinical Support 12/25/2023 2:00 PM EST Clinical Support [facility] [address] [place] [address] Elvis Bronson, [facility] [address] [place] [address] [facility] Start: 12-21-2023 End: 12-21-2023 Patient encounter procedure 12/21/2023 2:20 PM EST Office Visit [facility] [address] [facility] [address] [place] [address] Eddy Lorenzana MD [address] [id number] [facility] Start: 12-19-2023 End: 12-19-2023 Patient encounter procedure 12/19/2023 10:00 AM EST Office Visit [facility] [address] [place] [address] Eben Duque, FINANCIAL SERVICES AUDITOR-RESIDENT SERVICES DIRECTOR [address] [facility] [address] [place] [address] [facility] Start: 12-15-2023 End: 12-15-2023 Clinical Support 12/15/2023 1:00 PM EST Clinical Support [facility] [address] [place] [address] Elvis Bronson, [facility] [address] [place] [address] [facility] Start: 07-14-2023 COVID-19 Vaccine ( season) COVID-19 Vaccine ( season) [facility] Start: 07-14-2023 Influenza vaccination Influenza Vacc ine (#1) [facility] Start: 08-13-2022 Influenza vaccination Influenza Vacc ine (#[facility]) [facility] Start: 07-05-2022 End: 07-05-2022 Telemedicine consultation with patient 07/05/2022 Telemedicine Rheumatology Lucía Calderon, FINANCIAL SERVICES AUDITOR-[employer] [address] [place] [address] [facility] Start: 09-26-2020 Screening for malign ant neoplasm of cervix [facility] Start: 2019 Measurement of occul t blood in single stool specimen [facility] Start: 2019 Screening for malign ant neoplasm of breast [facility]amm[facility] Start: 2019 Screening for malign ant neoplasm of colon CRC Screening [facility] Start: 2019 Shingles (RZV) Vacci ne (1 of 2) Shingles (RZV) Vaccine (1 of 2) [facility] Start: 2014 Cholesterol [Mass/volume] in Serum or Plasma Cholesterol [facility] Start: 2014 Screening for malign ant neoplasm of colon [facility] Start: 2009 Screening for malign ant neoplasm of breast [facility] Start: 1999 Screening for malign ant neoplasm of cervix [facility] Start: 1990 Screening for malign ant neoplasm of cervix Pap Smear [facility] Start: 1988 Hepatitis A (HAV) Vaccine (optional start 19+ years) Hepatitis A (HAV) Vaccine (optional start 19+ years) [facility] Start: 1988 Hepatitis B vaccination Hepati tis B (HBV) Vaccine (1 of 3 - 19+ 3-dose series) [facility] Start: 1987 Hepatitis C screening Hepatitis C An tibody [facility] Start: 1987 Tetanus + diphtheria + acellular pertussis vaccine (product) [facility] [facility] Start: 1984 HIV screening HIV Test [facility] Start: 1974 COVID-19 Vaccine (#1) COVID-19 Vacci ne (#1) [facility] Start: 1974 COVID-19 Vaccine (1) COVID-19 Vaccin e (1) [facility] Start: 06-28-1970 COVID-19 Vaccine (#1) COVID-19 Vacci ne (#1) [facility] Start: 1969 Screening for malign ant neoplasm of colon [facility] THIN PREP TIS PAP AN D HR HPV DNA THIN PREP TIS PAP AND HR HPV DNA Pathology and Cytology Routine Well woman exam with routine gynecological exam Ordered: 07/10/2024 [facility] Comment on above: Ordered: 07/10/2024 Payers Date Payer Category Payer Self-pay 2019 Medicaid [id number] 2019 Private Health Insurance [facility] MEDICA[facility] [id number] 1969 Unknown [id number] 2..840.1.478506.3.579.2. 593 1969 Unknown [id number] 2..840.1.703571.3.579.2. 593 1969 Unknown [id number] 2.16.840.1.869717.3.579.2. 593 1969 Unknown [id number] 2.16.840.1.195227.3.579.2. 593 1969 Unknown [id number] 2.16.840.1.637485.3.579.2. 593 1969 Unknown [id number] 2.16.840.1.931596.3.579.2. 593 1969 Unknown [id number] 2.16.840.1.431809.3.579.2. 593 1969 Unknown [id number] 2.16.840.1.027775.3.579.2. 593 1969 Unknown [id number] 2.16.840.1.403677.3.579.2. 593 1969 Unknown [id number] 2.16.840.1.375298.3.579.2. 593 1969 Unknown [id number] 2.16.840.1.709834.3.579.2. 593 1969 Unknown [id number] 2.16.840.1.924862.3.579.2. 593 1969 Unknown [id number] 2.16.840.1.092258.3.579.2. 732 1969 Unknown [id number] 2.16.840.1.898218.3.579.2. 1259 1969 Unknown [id number] 2.16.840.1.851216.3.579.2. 1259 1969 Unknown [id number] 2.16.840.1.140034.3.579.2. 1259 1969 Unknown [id number] 2.16.840.1.461606.3.579.2. 1259 1969 Unknown [id number] 2.16.840.1.258140.3.579.2. 1259 1969 Unknown [id number] 2.16.840.1.067769.3.579.2. 1259 1969 Unknown [id number] 2.16.840.1.786736.3.579.2. 125 1969 Unknown [id number] 2.16.840.1.534752.3.579.2. 1259 1969 Unknown [id number] 2.16.840.1.634084.3.579.2. 1259 1969 Unknown [id number] 2.16.840.1.639447.3.579.2. 1258 1969 Unknown [id number] 2.16.840.1.625251.3.579.2. 1258 1969 Unknown [id number] 2.16.840.1.536696.3.579.2. 1258 1969 Unknown [id number] 2.16.840.1.775928.3.579.2. 1258 1969 Unknown [id number] 2.16.840.1.684329.3.579.2. 1258 1969 Unknown [id number] 2.16.840.1.468004.3.579.2. 1258 1969 Unknown [id number] 2.16.840.1.544546.3.579.2. 1258 1969 Unknown [id number] 2.16.840.1.300477.3.579.2. 1258 1969 Unknown [id number] 2.16.840.1.945951.3.579.2. 1258 1969 Unknown [id number] 2.16.840.1.600489.3.579.2. 1258 1969 Unknown [id number] 2.16.840.1.907998.3.579.2. 1259 1959 Unknown [id number] 2.16.840.1.418795.19 1959 Unknown [id number] Unknown [id number] 2.16.840.1.799623.3.579.2. 531 Social History Date Type Detail Facility Start: 01-10-2022 End: 07-27-2023 Tobacco smoking status [facility] Never smoked tobacco [employer] Other Start: 01-10-2022 End: 07-27-2023 Tobacco use and exposure Smokeless tobacco non-user [facility] Start: 03-24-2022 End: 07-05-2022 Alcohol intake Ex-drinker (finding) [facility] Start: 1970 Sex Assigned At Not on file [facility] Start: 11-24-2023 End: 05-08-2024 Sex Assigned At [facility] Start: 11-28-2023 End: 10-28-2024 Alcohol intake Lifetime non-drinker (finding) [facility] [...] to any clubs or organizations such as yazdanism groups, unions, fraternal or athletic groups, or [...] [facility] Start: 09-20-2024 Sex Female (finding) [facility] Start: 1970 Sex Assigned At Female [facility] Medical Equipment Procedure Code Equipment Code Equipment Origin al Text Equipment Identifier Dates TEST ONCE DAILY [id number] Start: 02-15-2024 Clinical Notes 09-10-2021 to 10-28-2024 Melani Deras NP - 10/28/2024 1:50 PM Diogenes Deras NP - 10/28/2024 1:47 PM Diogenes Dreas NP - 10/28/2024 1:21 PM STUART SCHWARZ - 10/28/2024 1:00 PM EST Note Date & Type Note Facility 10-28-2024 History of Presen t illness Narrative Associated Problem(s): Chronic dental infection Has appt early November for tooth removal Recent ER visit PCN-didn't help, then dentist called in amox, she finished that and it seems to have helped?? Associated Problem(s): Other chest pain Vague symptoms, suspect possible gallbladder Recommend work up, she wants to wait at this time and see what happens She does not have a working vehicle at this time Will fu in 6 weeks for recheck and see at that time if still happening She is instructed to reach out sooner if needed Associated Problem(s): Fibromyalgia No changes in meds, or overall symptoms Poor follow through with rheumatology in the past Pt states she started with an abscess tooth two weeks ago and turned into chest pain a week later. Pt is not having pain however she is having pressure she said the pain had let go yesterday. Today she is having lower abdominal cramps. Pt states the last time she had a bm was Monday/Monday. Images from the original note were not included. Lu Cancino is a 53 y.o. female presents with chief complaint of No chief complaint on file. HPI: Here for recheck; last week in ER d/t feeling like heart wasn't beating correctly See ER notes, review HPI for pt complaint No pain since yesterday Pain was right chest/bilat shoulder/thoracic region: pressure Some dyspnea. Now not feeling that SUBJECTIVE: MEDICATIONS: Current Outpatient Medications Medication Instructions Aspirin Low Dose 81 mg, Daily Blood Glucose Monitoring Suppl (True Metrix Air Glucose Meter) w/Device kit 1 each, Other, Daily Blood Glucose Monitoring Suppl (True Metrix Meter) device 1 kit, Does not apply, Daily dexAMETHasone (DECADRON) 2 mg, Oral, 2 times daily with meals FLUoxetine (PROZAC) 40 mg, Oral, Daily furosemide (LASIX) 20 mg, Oral, Daily PRN gabapentin (NEURONTIN) 200 mg, Oral, 3 times daily Gelatin Capsules, Empty, (Empty Capsule Size 3 Union/Clr) capsule glucose blood (True Metrix Blood Glucose Test) test strip TEST ONCE DAILY magnesium oxide (MAG-OX) 400 mg, Daily modafinil (PROVIGIL) 200 mg, Oral, Daily montelukast (SINGULAIR) 10 mg, Oral, Nightly nabumetone (RELAFEN) 500 mg, 2 times daily PRN ondansetron (ZOFRAN) 4 mg, Every 6 hours PRN pantoprazole (PROTONIX) 40 mg, Oral, Daily before breakfast ALLERGIES: Allergies Allergen Reactions Tetanus Toxoids Other Reaction(s): Asthma REVIEW OF SYMPTOMS: Review of Systems Constitutional: Positive for fatigue. Negative for appetite change, chills and fever. HENT: Negative for congestion, ear pain and sore throat. Eyes: Negative for pain, discharge, redness and visual disturbance. Respiratory: Negative for cough, shortness of breath and wheezing. Cardiovascular: Positive for chest pain. Negative for palpitations and leg swelling. Gastrointestinal: Negative for abdominal pain, blood in stool, constipation, diarrhea, nausea and vomiting. Genitourinary: Negative for difficulty urinating, dysuria and frequency. Musculoskeletal: Positive for arthralgias and myalgias. Negative for back pain and joint swelling. Skin: Negative for rash and wound. Neurological: Negative for dizziness, tremors, seizures, syncope and headaches. Psychiatric/Behavioral: Negative for behavioral problems, self-injury and suicidal ideas. The patient is nervous/anxious. Depression Hematological: Does not bruise/bleed easily. Endocrine: Negative for polydipsia, polyphagia and polyuria. Allergic/Immunologic: Negative for environmental allergies and food allergies. PAST MEDICAL HISTORY Past Medical History: Diagnosis Date Acute COVID-19 02/05/2024 Alcohol abuse Anxiety and depression ([facility]) Asthma ([facility]) 11/28/2023 Cardiomegaly 02/05/2024 Cervical stenosis (uterine cervix) 02/05/2024 COVID-19 long hauler 02/05/2024 Elevated antinuclear antibody (MALINI) level 02/05/2024 Fatigue 02/05/2024 Fatty liver 02/05/2024 PELON (generalized anxiety disorder) ([facility]) 09/26/2023 Gallbladder sludge Gout, arthritis 02/05/2024 Heart attack ([facility]) Hip pain, chronic, left Kidney stone Lower extremity edema 02/05/2024 FELICE (obstructive sleep apnea) 02/05/2024 Osteoarthritis of right thumb Ovarian cyst 02/05/2024 Paresthesia of both hands Pre-diabetes Suicide attempt ([facility]) 02/05/2024 Trigger ring finger of right hand Past Surgical History: Procedure Laterality Date KNEE SURGERY Right 2013 knee scope meniscal repair family history includes ALS in her father; Diabetes in her mother; Hypertension in her mother; Kidney disease in her mother. OBJECTIVE: Visit Vitals BP 142/78 (BP Location: Left arm, Patient Position: Sitting, BP Cuff Size: Large adult long) Pulse 75 Temp 98.3 F (Temporal) Resp 19 Ht 5' 2 Wt 271 lb 6.4 oz LMP (LMP Unknown) SpO2 96% BMI 49.64 kg/m OB Status Postmenopausal Smoking Status Never BSA 2.32 m Physical Exam Vitals and nursing note reviewed. Constitutional: General: She is not in acute distress. Appearance: Normal appearance. HENT: Head: Normocephalic and atraumatic. Right Ear: Tympanic membrane, ear canal and external ear normal. Left Ear: Tympanic membrane, ear canal and external ear normal. Nose: Nose normal. No congestion or rhinorrhea. Comments: Mild swelling right max sinus region Non tender Mouth/Throat: Mouth: Mucous membranes are moist. Comments: Upper right posterior broken tooth, no s/s abcess Eyes: Extraocular Movements: Extraocular movements intact. Conjunctiva/sclera: Conjunctivae normal. Cardiovascular: Rate and Rhythm: Normal rate and regular rhythm. Pulses: Normal pulses. Heart sounds: Normal heart sounds. Pulmonary: Effort: Pulmonary effort is normal. Breath sounds: Normal breath sounds. No wheezing or rales. Abdominal: General: Bowel sounds are normal. There is no distension. Palpations: Abdomen is soft. There is no mass. Tenderness: There is no abdominal tenderness. There is no rebound. Musculoskeletal: General: Normal range of motion. Cervical back: Normal range of motion and neck supple. Right lower leg: No edema. Left lower leg: No edema. Lymphadenopathy: Cervical: No cervical adenopathy. Skin: General: Skin is warm and dry. Capillary Refill: Capillary refill takes 2 to 3 seconds. Findings: No rash. Neurological: General: No focal deficit present. Mental Status: She is alert and oriented to person, place, and time. Psychiatric: Mood and Affect: Mood normal. Behavior: Behavior normal. Thought Content: Thought content normal. Judgment: Judgment normal. ASSESSMENT AND PLAN: No follow-ups on file. Problem List Items Addressed This Visit Bipolar II disorder, most recent episode major depressive (CMS/HCC) Edema of lower extremity Cont lasix daily Check labs yearly and prn Gastroesophageal reflux disease - Primary Recommendations: freq small meals, nothing to eat or drink at least 2 hours prior to bed, limit caffeine, alcohol, as well as spicy foods Meds to limit or avoid if possible: NSAIDS Elevate HOB if possible Current med: pantoprazole Morbid obesity (CMS/HCC) Discussed with patient their BMI (actual, verses recommended). We have also discussed lifestyle modifications: attempts to perform physical activity as chronic conditions allow, also to monitor dietary intake: increasing protein/fruits/veggies and lowering carb intake (unless contraindicated). Limit sodas, juices, and sugary drinks. Fibromyalgia No changes in meds, or overall symptoms Poor follow through with rheumatology in the past Relevant Orders Uric acid Prediabetes Check blood sugars daily, notify if <70 or >200. Take medications (pills or insulin) as directed. Monitor for s/s of hypoglycemia (sweaty, dizziness, nausea, vomiting, or shakiness). Watch for increase in thirst, urination, or appetite. Inspect feet frequently monitoring for open wounds , and also recommend yearly eye exam. Pt should attempt to remain as physically active as chronic conditions allow, as well as trying to follow a diet low in carbohydrates, and simple sugars. A1c 6.2% Relevant Orders Lipid panel Hepatic function panel POCT glycosylated hemoglobin (Hb A1C) docked device (Completed) Microalbumin / creatinine, urine ratio Idiopathic progressive neuropathy Under the care of Gabi Lorenzana FELICE (obstructive sleep apnea) Continue with PAP Vitamin deficiency Relevant Orders Vitamin D 25 hydroxy Other chest pain Vague symptoms, suspect possible gallbladder Recommend work up, she wants to wait at this time and see what happens She does not have a working vehicle at this time Will fu in 6 weeks for recheck and see at that time if still happening She is instructed to reach out sooner if needed Chronic dental infection Has appt early November for tooth removal Recent ER visit PCN-didn't help, then dentist called in amox, she finished that and it seems to have helped?? Associated Problem(s): Prediabetes Check blood sugars daily, notify if <70 or >200. Take medications (pills or insulin) as directed. Monitor for s/s of hypoglycemia (sweaty, dizziness, nausea, vomiting, or shakiness). Watch for increase in thirst, urination, or appetite. Inspect feet frequently monitoring for open wounds , and also recommend yearly eye exam. Pt should attempt to remain as physically active as chronic conditions allow, as well as trying to follow a diet low in carbohydrates, and simple sugars. A1c 6.2% Associated Problem(s): Morbid obesity (CMS/HCC) Discussed with patient their BMI (actual, verses recommended). We have also discussed lifestyle modifications: attempts to perform physical activity as chronic conditions allow, also to monitor dietary intake: increasing protein/fruits/veggies and lowering carb intake (unless contraindicated). Limit sodas, juices, and sugary drinks. Associated Problem(s): Edema of lower extremity Cont lasix daily Check labs yearly and prn Associated Problem(s): FELICE (obstructive sleep apnea) Continue with PAP Associated Problem(s): Idiopathic progressive neuropathy Under the care of Gabi Lorenzana Associated Problem(s): Gastroesophageal reflux disease Recommendations: freq small meals, nothing to eat or drink at least 2 hours prior to bed, limit caffeine, alcohol, as well as spicy foods Meds to limit or avoid if possible: NSAIDS Elevate HOB if possible Current med: pantoprazole documented in this encounter [facility] 09-02-2024 Telephone encount er Note Spoke with patient regarding her most recent [employer] message to Dr Lorenzana. She is having [...] 1:15pm to discuss further with Dr. Lorenzana [facility] 09-02-2024 Miscellaneous Notes Formattin g of this note might be different from the original. Spoke with patient regarding her most recent mychart message to Dr Lorenzana. She is having [...] with Dr. Lorenzana documented in this encounter [facility] 08-07-2024 History of Presen t illness Narrative Associated Problem(s): PELON (generalized anxiety disorder) (CMS/HCC) Continue with fluoxetine, however does not want to see psych at this time Associated Problem(s): Prediabetes No currently taking any meds, does report polyuria/dipsia/phagia Recheck labs including an A1c test Associated Problem(s): Fibromyalgia At this time dose not want to see rheumatology Cont with NSAIDS Associated Problem(s): Edema of lower extremity Cont lasix daily Needs labs checked Associated Problem(s): Essential hypertension (CMS/HCC) No meds at this time Associated Problem(s): FELICE (obstructive sleep apnea) Continue with PAP Pt has pain in the right side of her chest up her shoulder and under her shoulder. Images from the original note were not included. Lu Cancino is a 53 y.o. female presents with chief complaint of No chief complaint on file. HPI: FELICE: is compliant with use of PAP and feels a benefit from taking this Fibromyalgia: has good days and bad days Does report feeling better with Modafinil from neurology She did not return calls to psych and Rheumatology either, at this point she is trying to get disability and wants to only focus with neurology as well as disability Diabetes She presents for her follow-up diabetic visit. She has type 2 diabetes mellitus. Her disease course has been fluctuating. Hypoglycemia symptoms include nervousness/anxiousness. Pertinent negatives for hypoglycemia include no dizziness, headaches, seizures or tremors. Associated symptoms include fatigue, polydipsia, polyphagia and polyuria. Pertinent negatives for diabetes include no chest pain. There are no hypoglycemic complications. Pertinent negatives for diabetic complications include no heart disease or nephropathy. Risk factors for coronary artery disease include obesity and sedentary lifestyle. When asked about current treatments, none were reported. An VANDANA inhibitor/angiotensin II receptor javier is not being taken. SUBJECTIVE: MEDICATIONS: Current Outpatient Medications Medication Instructions biotin 10 mg, Oral, Daily Blood Glucose Monitoring Suppl (True Metrix Air Glucose Meter) w/Device kit 1 each, Other, Daily Blood Glucose Monitoring Suppl (True Metrix Meter) device 1 kit, Does not apply, Daily FLUoxetine (PROZAC) 40 mg, Oral, Daily furosemide (LASIX) 20 mg, Oral, Daily PRN gabapentin (NEURONTIN) 300 mg, Oral, Nightly, Pt can take up to 3 capsules (300MG) PRN nightly Gelatin Capsules, Empty, (Empty Capsule Size 3 Union/Clr) capsule glucose blood (True Metrix Blood Glucose Test) test strip TEST ONCE DAILY magnesium oxide (MAG-OX) 400 mg, Oral, Daily modafinil (PROVIGIL) 100 mg, Oral, Daily montelukast (SINGULAIR) 10 mg, Oral, Nightly nabumetone (RELAFEN) 500 mg, Oral, 2 times daily PRN pantoprazole (PROTONIX) 40 mg, Oral, Daily before breakfast ALLERGIES: Allergies Allergen Reactions Tetanus Toxoids Other Reaction(s): Asthma REVIEW OF SYMPTOMS: Review of Systems Constitutional: Positive for fatigue. Negative for appetite change, chills and fever. HENT: Negative for congestion, ear pain and sore throat. Eyes: Negative for pain, discharge, redness and visual disturbance. Respiratory: Negative for cough, shortness of breath and wheezing. Cardiovascular: Negative for chest pain, palpitations and leg swelling. Gastrointestinal: Negative for abdominal pain, blood in stool, constipation, diarrhea, nausea and vomiting. Genitourinary: Negative for difficulty urinating, dysuria and frequency. Musculoskeletal: Positive for arthralgias and myalgias. Negative for back pain and joint swelling. Skin: Negative for rash and wound. Neurological: Negative for dizziness, tremors, seizures, syncope and headaches. Psychiatric/Behavioral: Negative for behavioral problems, self-injury and suicidal ideas. The patient is nervous/anxious. Depression Hematological: Does not bruise/bleed easily. Endocrine: Positive for polydipsia, polyphagia and polyuria. Allergic/Immunologic: Negative for environmental allergies and food allergies. PAST MEDICAL HISTORY Past Medical History: Diagnosis Date Acute COVID-19 02/05/2024 Alcohol abuse Anxiety and depression ([facility]) Asthma ([facility]) 11/28/2023 Cardiomegaly 02/05/2024 Cervical stenosis (uterine cervix) 02/05/2024 COVID-19 long hauler 02/05/2024 Elevated antinuclear antibody (MALINI) level 02/05/2024 Fatigue 02/05/2024 Fatty liver 02/05/2024 PELON (generalized anxiety disorder) ([facility]) 09/26/2023 Gallbladder sludge Gout, arthritis 02/05/2024 Heart attack ([facility]) Hip pain, chronic, left Kidney stone Lower extremity edema 02/05/2024 FELICE (obstructive sleep apnea) 02/05/2024 Osteoarthritis of right thumb Ovarian cyst 02/05/2024 Paresthesia of both hands Pre-diabetes Suicide attempt ([facility]) 02/05/2024 Trigger ring finger of right hand Past Surgical History: Procedure Laterality Date KNEE SURGERY Right 2013 knee scope meniscal repair family history includes ALS in her father; Diabetes in her mother; Hypertension in her mother; Kidney disease in her mother. OBJECTIVE: Visit Vitals BP 120/78 (BP Location: Left arm, Patient Position: Sitting, BP Cuff Size: Adult long) Comment (BP Location): forearm Pulse 83 Temp 98.3 F (Temporal) Resp 21 Ht 5' 2 Wt 273 lb 12.8 oz LMP (LMP Unknown) SpO2 97% BMI 50.08 kg/m OB Status Postmenopausal Smoking Status Never BSA 2.33 m Physical Exam Vitals and nursing note reviewed. Constitutional: General: She is not in acute distress. Appearance: Normal appearance. HENT: Head: Normocephalic and atraumatic. Right Ear: Tympanic membrane, ear canal and external ear normal. Left Ear: Tympanic membrane, ear canal and external ear normal. Nose: Congestion present. No rhinorrhea. Mouth/Throat: Mouth: Mucous membranes are moist. Pharynx: Posterior oropharyngeal erythema present. No oropharyngeal exudate. Eyes: Extraocular Movements: Extraocular movements intact. Conjunctiva/sclera: Conjunctivae normal. Neck: Vascular: No carotid bruit. Cardiovascular: Rate and Rhythm: Normal rate and regular rhythm. Pulses: Normal pulses. Heart sounds: Normal heart sounds. Pulmonary: Effort: Pulmonary effort is normal. Breath sounds: Normal breath sounds. No wheezing or rales. Abdominal: General: Bowel sounds are normal. There is no distension. Palpations: Abdomen is soft. There is no mass. Tenderness: There is no abdominal tenderness. Musculoskeletal: General: Normal range of motion. Cervical back: Normal range of motion and neck supple. Right lower leg: Edema (trace) present. Left lower leg: Edema (trace) present. Lymphadenopathy: Cervical: No cervical adenopathy. Skin: General: Skin is warm and dry. Capillary Refill: Capillary refill takes 2 to 3 seconds. Findings: No rash. Neurological: General: No focal deficit present. Mental Status: She is alert and oriented to person, place, and time. Psychiatric: Mood and Affect: Mood normal. Behavior: Behavior normal. Thought Content: Thought content normal. Judgment: Judgment normal. ASSESSMENT AND PLAN: No follow-ups on file. Problem List Items Addressed This Visit Bipolar II disorder, most recent episode major depressive (CMS/HCC) Edema of lower extremity Cont lasix daily Needs labs checked Essential hypertension (CMS/HCC) No meds at this time Morbid obesity (CMS/HCC) Fibromyalgia At this time dose not want to see rheumatology Cont with NSAIDS Prediabetes - Primary No currently taking any meds, does report polyuria/dipsia/phagia Recheck labs including an A1c test FELICE (obstructive sleep apnea) Continue with PAP PELON (generalized anxiety disorder) (CMS/HCC) Continue with fluoxetine, however does not want to see psych at this time documented in this encounter [facility] 07-10-2024 History of Presen t illness Narrative Reason for Appointment: Patient ID: Torrie Cancino is a 53 y.o. female who presents for Gynecologic Exam Patient presents today for Annual Exam. MEDICATIONS Current Outpatient Medications Medication Instructions biotin 10 mg, Oral, Daily Blood Glucose Monitoring Suppl (True Metrix Meter) device 1 kit, Does not apply, Daily FLUoxetine (PROZAC) 40 mg, Oral, Daily furosemide (LASIX) 20 mg, Oral, Daily PRN gabapentin (NEURONTIN) 300 mg, Oral, Nightly, Pt can take up to 3 capsules (300MG) PRN nightly Gelatin Capsules, Empty, (Empty Capsule Size 3 Union/Clr) capsule glucose blood (True Metrix Blood Glucose Test) test strip TEST ONCE DAILY magnesium oxide (MAG-OX) 400 mg, Oral, Daily modafinil (PROVIGIL) 100 mg, Oral, Daily montelukast (SINGULAIR) 10 mg, Oral, Nightly pantoprazole (PROTONIX) 40 mg, Oral, Daily before breakfast ALLERGIES Allergies Allergen Reactions Tetanus Toxoids Other Reaction(s): Asthma PROBLEMS Active Ambulatory Problems Diagnosis Date Noted Bipolar II disorder, most recent episode major depressive ([facility]) 03/14/2019 Chondromalacia of patella, left 09/26/2023 Edema of lower extremity 03/14/2019 Essential hypertension ([facility]) 03/14/2019 Gastroesophageal reflux disease 03/14/2019 Lesion of cervix 03/14/2019 Morbid obesity ([facility]) 03/14/2019 Multiple joint pain 03/14/2019 Osteoarthritis of carpometacarpal (CMC) joint of thumb 03/14/2019 Fibromyalgia 09/26/2023 Pain in left knee 09/26/2023 Prediabetes 03/14/2019 Tear of medial meniscus of left knee, current 03/14/2019 Myalgia 09/28/2023 Numbness and tingling 09/28/2023 Weakness 09/28/2023 Idiopathic progressive neuropathy 09/28/2023 Lumbar radiculopathy 11/23/2023 Asthma (CMS/HCC) 11/28/2023 COVID-19 long hauler manifesting chronic dyspnea 12/21/2023 FELICE (obstructive sleep apnea) 02/05/2024 Elevated antinuclear antibody (MALINI) level 02/05/2024 Ovarian cyst 02/05/2024 Fatty liver 02/05/2024 Cardiomegaly 02/05/2024 Cervical stenosis (uterine cervix) 02/05/2024 Lower extremity edema 02/05/2024 Fatigue 02/05/2024 PELON (generalized anxiety disorder) (CMS/HCC) 09/26/2023 COVID-19 long hauler 02/05/2024 Encounter for screening mammogram for malignant neoplasm of breast 05/09/2024 Vitamin deficiency 05/09/2024 Pap smear for cervical cancer screening 05/09/2024 Resolved Ambulatory Problems Diagnosis Date Noted At low risk for fall 03/14/2019 Suicide attempt (CMS/HCC) 02/05/2024 Acute COVID-19 02/05/2024 Pap smear of cervix not needed 05/09/2024 Past Medical History: Diagnosis Date Alcohol abuse Anxiety and depression (CMS/HCC) Gallbladder sludge Gout, arthritis 02/05/2024 Heart attack (CMS/HCC) Hip pain, chronic, left Kidney stone Osteoarthritis of right thumb Paresthesia of both hands Pre-diabetes Trigger ring finger of right hand HISTORY PAST MEDICAL HISTORY SOCIAL HISTORY Past Medical History: Diagnosis Date Acute COVID-19 02/05/2024 Alcohol abuse Anxiety and depression (CMS/HCC) Asthma (CMS/HCC) 11/28/2023 Cardiomegaly 02/05/2024 Cervical stenosis (uterine cervix) 02/05/2024 COVID-19 long hauler 02/05/2024 Elevated antinuclear antibody (MALINI) level 02/05/2024 Fatigue 02/05/2024 Fatty liver 02/05/2024 PELON (generalized anxiety disorder) (CMS/HCC) 09/26/2023 Gallbladder sludge Gout, arthritis 02/05/2024 Heart attack (CMS/HCC) Hip pain, chronic, left Kidney stone Lower extremity edema 02/05/2024 FELICE (obstructive sleep apnea) 02/05/2024 Osteoarthritis of right thumb Ovarian cyst 02/05/2024 Paresthesia of both hands Pre-diabetes Suicide attempt (CMS/HCC) 02/05/2024 Trigger ring finger of right hand Social History Tobacco Use Smoking status: Never Smokeless tobacco: Never Vaping Use Vaping status: Never Used Substance Use Topics Alcohol use: Never Comment: caffiene- 3 cups either coffee, tea or pop Drug use: Never FAMILY HISTORY Family History Problem Relation Name Age of Onset Hypertension Mother Diabetes Mother Kidney disease Mother ALS Father SURGICAL HISTORY Past Surgical History: Procedure Laterality Date KNEE SURGERY Right 2014 knee scope meniscal repair REVIEW OF SYSTEMS Review of Systems: Review of Systems All other systems reviewed and are negative. OBJECTIVE Objective: Physical Exam Constitutional: Appearance: Normal appearance. She is well-developed. Genitourinary: Vulva normal. Cardiovascular: Rate and Rhythm: Normal rate and regular rhythm. Pulmonary: Effort: Pulmonary effort is normal. Breath sounds: Normal breath sounds. Abdominal: General: Bowel sounds are normal. There is no distension. Palpations: Abdomen is soft. Tenderness: There is no abdominal tenderness. There is no guarding or rebound. Musculoskeletal: General: No swelling. Normal range of motion. Right lower leg: No edema. Left lower leg: No edema. Neurological: Mental Status: She is alert and oriented to person, place, and time. Skin: General: Skin is warm and dry. Psychiatric: Mood and Affect: Mood normal. Behavior: Behavior normal. Vitals and nursing note reviewed. Exam conducted with a apple checker present. Vitals: Estimated body mass index is 49.2 kg/m as calculated from the following: Height as of 06/13/24: 5' 2 . Weight as of this encounter: 269 lb. BP: 122/74 No LMP recorded (lmp unknown). Patient is postmenopausal. ASSESSMENT & PLAN ICD-10-CM 1. Well woman exam with routine gynecological exam Z01.419 THIN PREP TIS PAP AND HR HPV DNA 2. Osteoporosis, post-menopausal ([facility]) M81.0 DEXA bone density Pt present today for annual visit. Pt has no issues and had her mammogram done a month ago. Pap smear was preformed and collected by Jackie Goodrich. Documented by Kristen Slaughter MA on behalf of: KARTHIKEYAN Flores documented in this encounter [facility] 12-15-2023 History of Presen t illness Narrative [...] medication as prescribed. documented in this encounter [facility] 08-26-2023 Evaluation note Encounter Date Diagnosis Assessment Notes Aug, Left sided sciatica (ICD-10 - M54.32) Drink plenty fluids, get plenty of rest. Continue home medications as prescribed. Take the prednisone as prescribed until gone. Limit your lifting and bending for the next few days. Follow-up with your family physician next week for recheck. [employer] Other 07-11-2023 NoteSubjective Patient ID: Lu Cancino [...] she was taking vitamin supplementation and [employer] energy drinks, but that she had been [...] about 6 months (around 11/23/2023). Yimi Catalan, [id number] History of Present illness Narrative* Lucía Calderon APRN-MICHELL - 07/05/2022 1:13 PM EDT Images from the original note were not included. Documentation: Mode: Telephone Patient Patient Work Phone: Patient Cell Preferred phone: [phone] Consent: I confirmed patient understanding of the risks and benefits of telehealth visits and obtained consent to proceed with the telehealth visit. Location of Patient: Home of patient Post Covid Follow Up Telemedicine Visit Note: CC: f/u of [id number] condition Recall: Lu Cancino is a 51 [...] Also has neuropathy Patient still resides near [place], [place] PMH/PSH: Reviewed 07/05/22 Allergies: Per list, [...] Post Covid Nurse Practitioner documented in this [id number] Evaluation note* Encounter Date Diagnosis Assessment Notes [...] understanding and is agreeable to treatment plan [employer] Other 05-12-2022 History of Present illness Narrative* Lucía Calderon APRN-CNP - 03/24/2022 10:03 AM EDT Images from the original note were not included. Documentation: Mode: Telephone Patient Patient Work Phone: Patient Cell Preferred phone: [phone] Consent: I confirmed patient understanding of the risks and benefits of telehealth visits and obtained consent to proceed with the telehealth visit. Location of Patient: Home of patient Post Covid Follow Up Telemedicine Visit Note: CC: f/u of [id number] condition Recall: Lu Cancino is a 51 [...] Post Covid Nurse Practitioner documented in this [id number] Evaluation note* Encounter Date Diagnosis Assessment Notes [...] Patient care instructions given in writting by [facility] document. Additional time spent conducting pre-visit phone call, screening for symptoms, instructions on social distancing, application and removal of PPE, and cleaning of examination room, equipment and supplies was preformed. Patient education given for testing methodology and results. Patient care instructions given in writting by [facility] document. [employer] Other Evaluation note* Diagnosis Shortness of breath- Primary [id number] [facility] Diagnosis Chest pain, unspecified type- Primary [id number] condition [facility]* Diagnosis Myalgia Unspecified myalgia and myositis Numbness and tingling Disturbance of skin sensation Weakness Other malaise and fatigue [facility]* Diagnosis Bipolar II disorder, most recent episode major depressive (CMS/HCC) Other bipolar disorders [facility]* Diagnosis Essential hypertension (CMS/HCC)- Primary Unspecified essential hypertension Morbid obesity ([facility]/HCC) Morbid obesity Anxiety Anxiety state, unspecified Unspecified mood (affective) disorder ([facility]) Encounter for screening mammogram for malignant neoplasm of breast- Primary Essential hypertension ([facility]/HCC) Unspecified essential hypertension Gout, arthritis Gouty arthropathy, [...] long hauler manifesting chronic dyspnea Essential hypertension ([facility]/HCC) Unspecified essential hypertension Morbid obesity ([facility]/HCC) Morbid obesity PELON (generalized anxiety disorder) ([facility]) Generalized anxiety disorder Bipolar II disorder, most recent episode major depressive ([facility]) Other bipolar disorders Prediabetes- Primary Other abnormal glucose FELICE (obstructive sleep apnea) Obstructive sleep apnea (adult) (pediatric) Essential hypertension ([facility]/HCC) Unspecified essential hypertension Fibromyalgia Unspecified myalgia and myositis Edema of lower extremity Morbid obesity ([facility]/HCC) Morbid obesity Bipolar II disorder, most recent episode major depressive ([facility]) Other bipolar disorders PELON (generalized anxiety disorder) ([facility]) Generalized anxiety disorder Screening for colon cancer Special screening for malignant neoplasms, colon Vitamin deficiency- Primary Unspecified vitamin deficiency [facility]* Diagnosis Essential hypertension ([facility]/HCC)- Primary Unspecified essential hypertension Morbid obesity ([facility]/HCC) Morbid obesity Anxiety Anxiety state, unspecified Unspecified mood (affective) disorder ([facility]) Encounter for screening mammogram for malignant neoplasm of breast- Primary Essential hypertension ([facility]/HCC) Unspecified essential hypertension Gout, arthritis Gouty arthropathy, unspecified Edema of lower extremity Prediabetes Other abnormal glucose Vitamin deficiency Unspecified vitamin deficiency Morbid obesity ([facility]/HCC) Morbid obesity Multiple joint pain Pain in [...] Anxiety state, unspecified Unspecified mood (affective) disorder ([facility]) Encounter for screening mammogram for malignant neoplasm [...] apnea) Obstructive sleep apnea (adult) (pediatric) COVID-19 philippe valdovinos manifesting chronic dyspnea Essential hypertension (CMS/HCC) Unspecified essential hypertension Morbid obesity (CMS/HCC) Morbid obesity PELON (generalized anxiety disorder) ([facility]/HCC) Generalized anxiety disorder Bipolar II disorder, most [...] Other bipolar disorders PELON (generalized anxiety disorder) ([facility]/HCC) Generalized anxiety disorder Screening for colon cancer Special screening for malignant neoplasms, colon Fibromyalgia- Primary Unspecified myalgia and myositis Gastroesophageal reflux disease, unspecified whether esophagitis present Edema of lower extremity [facility] noteNo assessment information availableNor[facility] Work Phone: Evaluation note* Diagnosis Essential hypertension (CMS/HCC)- Primary Unspecified [...] Other bipolar disorders PELON (generalized anxiety disorder) ([facility]/HCC) Generalized anxiety disorder Screening for colon cancer Special screening for malignant neoplasms, colon Other chest pain- Primary Gastroesophageal reflux disease, unspecified whether esophagitis present Idiopathic progressive neuropathy FELICE (obstructive sleep apnea) Obstructive sleep apnea (adult) (pediatric) Edema of lower extremity Morbid obesity (CMS/HCC) Morbid obesity Prediabetes Other abnormal glucose Fibromyalgia Unspecified myalgia and myositis Bipolar II disorder, most recent episode major depressive (CMS/HCC) Other bipolar disorders Vitamin deficiency Unspecified vitamin deficiency Chronic dental infection Chronic periodontitis, unspecified [facility]* Diagnosis Anxiety Anxiety state, unspecified [facility]* Diagnosis Gastroesophageal reflux disease, unspecified whether esophagitis present [facility]* Diagnosis Idiopathic progressive neuropathy [facility]* Diagnosis Well woman exam with routine gynecological exam Routine gynecological examination Osteoporosis, post-menopausal ([facility]) Senile osteoporosis [facility]* Diagnosis Prediabetes- Primary Other abnormal glucose FELICE (obstructive sleep apnea) Obstructive sleep apnea (adult) (pediatric) Essential hypertension (CMS/HCC) Unspecified essential hypertension Fibromyalgia Unspecified myalgia and myositis Edema of lower extremity Morbid obesity ([facility]/HCC) Morbid obesity Bipolar II disorder, most recent episode major depressive ([facility]) Other bipolar disorders PELON (generalized anxiety disorder) ([facility]) Generalized anxiety disorder Screening for colon cancer Special screening for malignant neoplasms, colon [facility]* Diagnosis Dental infection- Primary documented [facility]* Diagnosis Essential hypertension (CMS/HCC)- Primary Unspecified essential hypertension Morbid obesity ([facility]/HCC) Morbid obesity Anxiety Anxiety state, unspecified Unspecified mood (affective) disorder ([facility]) Encounter for screening mammogram for malignant neoplasm of breast- Primary Essential hypertension ([facility]) Unspecified essential hypertension Gout, arthritis Gouty arthropathy, unspecified Edema of lower extremity Prediabetes Other abnormal glucose Vitamin deficiency Unspecified vitamin deficiency Morbid obesity ([facility]/HCC) Morbid obesity Multiple joint pain Pain in joint, multiple sites Pap smear for cervical cancer screening Screening for malignant neoplasm of the cervix Fibromyalgia- Primary Unspecified myalgia and myositis FELICE (obstructive sleep apnea) Obstructive sleep apnea (adult) (pediatric) COVID-19 long hauler manifesting chronic dyspnea Essential hypertension ([facility]/HCC) Unspecified essential hypertension Morbid obesity ([facility]/HCC) Morbid obesity PELON (generalized anxiety disorder) ([facility]) Generalized anxiety disorder Bipolar II disorder, most recent episode major depressive ([facility]) Other bipolar disorders Prediabetes- Primary Other abnormal glucose FELICE (obstructive sleep apnea) Obstructive sleep apnea (adult) (pediatric) Essential hypertension ([facility]/HCC) Unspecified essential hypertension Fibromyalgia Unspecified myalgia and myositis Edema of lower extremity Morbid obesity ([facility]/HCC) Morbid obesity Bipolar II disorder, most recent episode major depressive ([facility]) Other bipolar disorders PELON (generalized anxiety disorder) ([facility]) Generalized anxiety disorder Screening for colon cancer Special screening for malignant neoplasms, colon Other chest pain- Primary Gastroesophageal reflux disease, unspecified whether esophagitis present Idiopathic progressive neuropathy FELICE (obstructive sleep apnea) Obstructive sleep apnea (adult) (pediatric) Edema of lower extremity Morbid obesity ([facility]/HCC) Morbid obesity Prediabetes Other abnormal glucose Fibromyalgia Unspecified myalgia and myositis Bipolar II disorder, most recent episode major depressive ([facility]) Other bipolar disorders Vitamin deficiency Unspecified vitamin deficiency Chronic dental infection Chronic periodontitis, unspecified Edema of lower extremity documented in this encounter [facility]* Diagnosis Essential hypertension ([facility])- Primary Unspecified essential hypertension Morbid obesity ([facility]/HCC) Morbid obesity Anxiety Anxiety state, unspecified Unspecified mood (affective) disorder ([facility]) Encounter for screening mammogram for malignant neoplasm of breast- Primary Essential hypertension ([facility]) Unspecified essential hypertension Gout, arthritis Gouty arthropathy, unspecified Edema of lower extremity Prediabetes Other abnormal glucose Vitamin deficiency Unspecified vitamin deficiency Morbid obesity ([facility]) Morbid obesity Multiple joint pain Pain in joint, multiple sites Pap smear for cervical cancer screening Screening for malignant neoplasm of the cervix Fibromyalgia- Primary Unspecified myalgia and myositis FELICE (obstructive sleep apnea) Obstructive sleep apnea (adult) (pediatric) COVID-19 long hauler manifesting chronic dyspnea Essential hypertension ([facility]) Unspecified essential hypertension Morbid obesity ([facility]) Morbid obesity PELON (generalized anxiety disorder) ([facility]) Generalized anxiety disorder Bipolar II disorder, most recent episode major depressive ([facility]) Other bipolar disorders Prediabetes- Primary Other abnormal glucose FELICE (obstructive sleep apnea) Obstructive sleep apnea (adult) (pediatric) Essential hypertension ([facility]) Unspecified essential hypertension Fibromyalgia Unspecified myalgia and myositis Edema of lower extremity Morbid obesity ([facility]/HCC) Morbid obesity Bipolar II disorder, most recent episode major depressive ([facility]) Other bipolar disorders PELON (generalized anxiety disorder) ([facility]) Generalized anxiety disorder Screening for colon cancer Special screening for malignant neoplasms, colon Other chest pain- Primary Gastroesophageal reflux disease, unspecified whether esophagitis present Idiopathic progressive neuropathy FELICE (obstructive sleep apnea) Obstructive sleep apnea (adult) (pediatric) Edema of lower extremity Morbid obesity ([facility]) Morbid obesity Prediabetes Other abnormal glucose Fibromyalgia Unspecified myalgia and myositis Bipolar II disorder, most recent episode major depressive ([facility]) Other bipolar disorders Vitamin deficiency Unspecified vitamin deficiency Chronic dental infection Chronic periodontitis, unspecified Fibromyalgia- Primary Unspecified myalgia and myositis [facility]* [...] Other bipolar disorders PELON (generalized anxiety disorder) ([facility]) Generalized anxiety disorder Screening for colon cancer Special screening for malignant neoplasms, colon Other chest pain- Primary Gastroesophageal reflux disease, unspecified whether esophagitis present Idiopathic progressive neuropathy FELICE (obstructive sleep apnea) Obstructive sleep apnea (adult) (pediatric) Edema of lower extremity Morbid obesity (CMS/HCC) Morbid obesity Prediabetes Other abnormal glucose Fibromyalgia Unspecified myalgia and myositis Bipolar II disorder, most recent episode major depressive ([facility]/HCC) Other bipolar disorders Vitamin deficiency Unspecified vitamin deficiency Chronic dental infection Chronic periodontitis, unspecified Idiopathic progressive neuropathy [facility]* Diagnosis Essential hypertension (CMS/HCC)- Primary Unspecified essential hypertension Morbid obesity (CMS/HCC) Morbid obesity Anxiety Anxiety state, unspecified Unspecified mood (affective) disorder ([facility]) Encounter for screening mammogram for malignant neoplasm [...] (CMS/HCC) Morbid obesity PELON (generalized anxiety disorder) ([facility]) Generalized anxiety disorder Bipolar II disorder, most recent episode major depressive (CMS/HCC) Other bipolar disorders Prediabetes- Primary Other abnormal glucose FELICE (obstructive sleep apnea) Obstructive sleep apnea (adult) (pediatric) Essential hypertension (CMS/HCC) Unspecified essential hypertension Fibromyalgia Unspecified myalgia and myositis Edema of lower extremity Morbid obesity (CMS/HCC) Morbid obesity Bipolar II disorder, most recent episode major depressive ([facility]) Other bipolar disorders PELON (generalized anxiety disorder) ([facility]) Generalized anxiety disorder Screening for colon cancer Special screening for malignant neoplasms, colon Other chest pain- Primary Gastroesophageal reflux disease, unspecified whether esophagitis present Idiopathic progressive neuropathy FELICE (obstructive sleep apnea) Obstructive sleep apnea (adult) (pediatric) Edema of lower extremity Morbid obesity ([facility]/HCC) Morbid obesity Prediabetes Other abnormal glucose Fibromyalgia Unspecified myalgia and myositis Bipolar II disorder, most recent episode major depressive ([facility]) Other bipolar disorders Vitamin deficiency Unspecified vitamin deficiency Chronic dental infection Chronic periodontitis, unspecified Gastroesophageal reflux disease, unspecified whether esophagitis present [facility]* Diagnosis Essential hypertension (CMS/HCC)- Primary Unspecified essential hypertension Morbid obesity (CMS/HCC) Morbid obesity Anxiety Anxiety state, unspecified Unspecified mood (affective) disorder ([facility]) Encounter for screening mammogram for malignant neoplasm [...] cancer Special screening for malignant neoplasms, colon Other chest pain- Primary Gastroesophageal reflux disease, unspecified whether esophagitis present Idiopathic progressive neuropathy FELICE (obstructive sleep apnea) Obstructive sleep apnea (adult) (pediatric) Edema of lower extremity Morbid obesity (CMS/HCC) Morbid obesity Prediabetes Other abnormal glucose Fibromyalgia Unspecified myalgia and myositis Bipolar II disorder, most recent episode major depressive (CMS/HCC) Other bipolar disorders Vitamin deficiency Unspecified vitamin deficiency Chronic dental infection Chronic periodontitis, unspecified Lumbar radiculopathy- Primary Thoracic or lumbosacral neuritis or radiculitis, unspecified Idiopathic progressive neuropathy documented in this encounter [facility] Narrative - Reported* Type Description Date Medical History Seasonal Allergies Medical History rheumatoid arthritis Surgical History C section X2 Hospitalization History see above [employer] Other History general Narrative - Reported* Type Description Date Medical History Seasonal Allergies Medical History rheumatoid arthritis Medical History neuropathy Surgical History C section X2 Hospitalization History Covid 2021 [employer] Other Summary Purpose Family History Relationship Condition [...] section and content) DATE CREATED AUTHOR 04/18/2019 [facility] DATE CREATED AUTHOR AUTHOR'S ORGANIZ ATION 12/17/2022 [facility] DATE CREATED AUTHOR AUTHOR'S ORGANIZ ATION 03/24/2023 [facility] DATE CREATED AUTHOR AUTHOR'S ORGANIZ ATION 04/21/2023 [facility] DATE CREATED AUTHOR AUTHOR'S ORGANIZ ATION 05/25/2023 [facility] DATE CREATED AUTHOR AUTHOR'S ORGANIZ ATION 10/30/2024 [facility] EPIC Reason for Visit (unrecogniz ed section and content) Reason Comments Shortness of breath Reason Comments Chest symptoms/complaints Reason Onset Date Comments Med Refill 12/20/2023 Reason Onset Date Comments Med Refill 08/24/2024 Reason Onset Date Comments Med Refill 09/07/2024 Reason Comments Med Refill Reason Onset Date Comments Med Refill 07/05/2024 Reason Comments Gynecologic Exam Specialty Diagnoses / Procedures Referred By Contac t Referred To Contact Obstetrics and Gynecology Diagnoses Pap smear for cervical cancer screening Procedures [place] OFFICE/OUTPATIENT NEW HIGH MDM 60 MINUTES Melani Deras NP [address] [place] [address] Jackie Goodrich PA [address] [place] [address] [place] [address] Referral ID Status Reason Start Date Expiration Date V isits Requested Visits Authorized [id number] Closed Specialty Services Required 05/09/2024 11/05/2024 1 1 Reason Onset Date Comments Med Refill 11/17/2024 Care Teams (unrecognized sec tion and content) Solution Design Engineer Relationship Specialty Start Date End Date Mahesh Rocha MD [address] [place] [id number] PCP - General Family Medicine 02/01/24 Melani Deras NP [address] [place] [address] Nurse Practitioner Family Medicine 02/01/24 Solution Design Engineer Relationship Specialty Start Date End Date Mahesh Rocha MD [address] [place] [phone] PCP - General Family Medicine 02/01/24 Melani Deras NP [address] [place] [address] Nurse Practitioner Family Medicine 02/01/24 Solution Design Engineer Relationship Specialty Start Date End Date Mahesh Rocha MD [address] [place] [phone] PCP - General Family Medicine 02/01/24 Melani Deras NP [address] [place] [address] Nurse Practitioner Family Medicine 02/01/24 Solution Design Engineer Relationship Specialty Start Date End Date Mahesh Rocha MD [address] [place] [phone] PCP - General Family Medicine 02/01/24 Melani Deras NP [address] [place] [address] Nurse Practitioner Family Medicine 02/01/24 Team Status: [...] September 20, 2024 End: September 20, 2024 Solution Design Engineer Relationship Specialty Start Date End Date Mahesh Rocha MD [address] [place] [address] PCP - General Family Medicine 02/01/24 Melani Deras NP [address] [place] [address] Nurse Practitioner Family Medicine 02/01/24 Solution Design Engineer Relationship Specialty Start Date End Date Mahesh Rocha MD [address] [place] [address] PCP - General Family Medicine 02/01/24 Melani Deras NP [address] [place] [address] Nurse Practitioner Family Medicine 02/01/24 Solution Design Engineer Relationship Specialty Start Date End Date Mahesh Rocha MD [address] [place] [address] PCP - General Family Medicine 02/01/24 Melani Deras NP [address] [place] [address] Nurse Practitioner Family Medicine 02/01/24 Solution Design Engineer Relationship Specialty Start Date End Date Mahesh Rocha MD [address] [place] [address] PCP - General Family Medicine 02/01/24 Mealni Deras NP [address] [place] [address] Nurse Practitioner Family Medicine 02/01/24 Solution Design Engineer Relationship Specialty Start Date End Date Mahesh Rocha MD [address] [place] [address] PCP - General Family Medicine 02/01/24 Melani Deras NP [address] [place] [address] Nurse Practitioner Family Medicine 02/01/24 Solution Design Engineer Relationship Specialty Start Date End Date Mahesh Rocha MD [address] [place] [address] PCP - General Family Medicine 02/01/24 Melani Deras NP [address] [place] [address] Nurse Practitioner Family Medicine 02/01/24 Solution Design Engineer Relationship Specialty Start Date End Date Mahesh Rocha MD [address] [place] [address] PCP - General Family Medicine 02/01/24 Melani Deras NP [address] [place] [address] Nurse Practitioner Family Medicine 02/01/24 Solution Design Engineer Relationship Specialty Start Date End Date Mahesh Rocha MD [address] [place] [address] PCP - General Family Medicine 02/01/24 Melani Deras NP [address] [place] [address] Nurse Practitioner Family Medicine 02/01/24 Solution Design Engineer Relationship Specialty Start Date End Date Mahesh Rocha MD [address] [place] [address] PCP - General Family Medicine 02/01/24 Melani Deras NP [address] [place] [address] Nurse Practitioner Family Medicine 02/01/24 Solution Design Engineer Relationship Specialty Start Date End Date Mahesh Rocha MD [address] [place] [address] PCP - General Family Medicine 02/01/24 Melani Deras NP [address] [place] [address] Nurse Practitioner Family Medicine 02/01/24 Solution Design Engineer Relationship Specialty Start Date End Date Mahesh Rocha MD [address] [place] [address] PCP - General Family Medicine 02/01/24 Melani Deras NP [address] [place] [address] Nurse Practitioner Family Medicine 02/01/24 Solution Design Engineer Relationship Specialty Start Date End Date Mahesh Rocha MD [address] [place] [address] PCP - General Family Medicine 02/01/24 Melani Deras NP [address] [place] [address] Nurse Practitioner Family Medicine 02/01/24 Solution Design Engineer Relationship Specialty Start Date End Date Mahesh Rocha MD [address] [place] [address] PCP - General Family Medicine 02/01/24 Melani Deras NP [address] [place] [address] Nurse Practitioner Family Medicine 02/01/24 Goals (unrecognized section and content) Goals may [...] BE BASED ON THE PRIMARY CLINICAL RECORDS. [facility] [employer] [facility]. provides no warranty or guarantee of the accuracy or completeness of information in this document.
--- NOTE | 2024-12-01 22:47 | XR_ITS ---
The [address] [address] Patient Name: GREG FIELD MRN: [id number] date: 1970 Sex: F Assigned Patient Location: ER Current Patient Location: ER Accession/Order Number: [id number] Exam Date: 12/01/2024 22:57 Report Date: 12/02/2024 00:00 At the request of: GILDARDO RODRIGUEZ Procedure: XR chest 2V EXAMINATION: XR chest 2V HISTORY: SOB COMPARISON: XR chest 10/23/2024 FINDINGS: LUNGS: No significant pulmonary parenchymal abnormalities. VASCULATURE: No increased pulmonary vasculature. PLEURA: No pneumothorax, effusion, or pleural thickening. CARDIAC: No cardiomegaly or cardiac silhouette abnormality. MEDIASTINUM: No visible mass or adenopathy. BONES: No fracture or visible bone lesion. OTHER: Negative. XR/XR chest 2V IMPRESSION: 1. No acute cardiopulmonary process. Electronically authenticated by: PASTOR ESPANA Date: 12/02/2024 00:00
[2024-12-01] MEDS: ALBUTEROL SULFATE 2.5 MG/3 ML VIAL NEB IH (23:02)
[2024-12-01] MEDS: IPRATROPIUM/ALBUTEROL SULFATE 3 ML AMPUL.NEB IH (23:02)
[2024-12-01 23:05] VITALS: PULSE 80; O2SAT 98
[2024-12-01 23:07] LABS: Influenza Virus A Antigen Negative; Influenza Virus B Antigen Negative; Internal Control Within Normal Limits; SARS-CoV-2 Ag NEGATIVE (NEGATIVE)
[2024-12-01] MEDS: PREDNISONE 20 MG TABLET 60 MG PO (23:36)
[2024-12-02] VITALS: BP 164/85; PULSE 89; TEMP 37.2; O2SAT 96
--- NOTE | 2024-12-02 00:19 | ED_ITS ---
HPI - SOB/Dyspnea General Chief Complaint: Shortness of Breath/Dyspnea Stated Complaint: CHEST CONGESTION, FEVER, SOB Time Seen by Provider: 12/01/24 22:09 Source: patient Mode of arrival: walk-in History of Present Illness HPI Narrative: Patient is a 53-year-old female presenting to the emergency department for incessant cough and shortness of breath. Patient's wheezing. She does have a history of asthma as a child but has never really had any problems unless she gets sick. She is a lifelong non-smoker and she does not vape. She does not get flu or COVID vaccines because she has terrible anaphylactic reactions to vaccines. Patient stated that her grandchildren were sick and she watches her grandchildren several times a week. The patient apparently did not know that her granddaughter had RSV. Since watching her grandchild earlier in the week she continues to feel terrible. She does not have a metered-dose inhaler or nebulizer. Patient does state that she had COVID in 2021. She has had long- haul COVID as well as and the [place]. The patient had fever and chills for the last 3 days. Tmax was 101.2. She has not had to take any antipyretics today. Patient states that she has been taking Mucinex PE every 4 hours and some nasal spray of unknown name every 12 hours. She states that she was having some sinus pain in her left maxillary sinus area. She states she woke this morning and her left eye was closed. However she did blow out some blood and pus and since then has been able to breathe without any obstruction. MD elicited complaint: shortness of breath, cough and asthma attack Pertinent past history: asthma Onset (ago): day(s) Context: recent illness and other (grandchild sick) Timing: constant Severity: moderate Exacerbating factors: coughing, inspiration, talking and deep breaths Relieving factors: nothing Known history of: asthma Associated symptoms: fever, cough, wheezing and sputum production Treatment prior to arrival: none Related Data Home oxygen amount: none Home Medications ?Medication ?Instructions ?Recorded ?Confirmed fluoxetine 40 mg capsule 40 mg PO DAILY 05/15/23 12/01/24 furosemide 20 mg tablet 10 mg PO DAILY 05/15/23 12/01/24 gabapentin 100 mg capsule 300 mg PO QPM 05/15/23 12/01/24 nabumetone 500 mg tablet 500 mg PO BID 05/15/23 12/01/24 pantoprazole 40 mg tablet,delayed 40 mg PO DAILY 05/15/23 12/01/24 release magnesium oxide 400 mg (241.3 mg 400 mg PO QPM 06/16/24 12/01/24 magnesium) tablet modafinil 100 mg tablet (Provigil) 100 mg PO DAILY 06/16/24 10/23/24 montelukast 10 mg tablet 10 mg PO QPM 06/16/24 12/01/24 naltrexone 1.5 mg capsule 4 mg PO DAILY 06/16/24 12/01/24 aspirin 81 mg tablet,delayed 81 mg PO DAILY 10/23/24 12/01/24 release Previous Rx's ?Medication ?Instructions ?Recorded nystatin 100,000 unit/gram topical 1 applic topical BID 2 weeks #30 10/15/24 powder grams albuterol sulfate 90 mcg/actuation 2 inh inhalation Q4H PRN shortness 12/02/24 aerosol inhaler of breath or wheezing #8.5 grams benzonatate 200 mg capsule 200 mg PO TID PRN cough #14 caps 12/02/24 prednisone 10 mg tablet 10 mg PO DAILY bronchitis and 12/02/24 asthma #30 tabs Allergies Allergy/AdvReac Type Severity Reaction Status Date / Time influenza A (H1N1) virus Allergy Severe Anaphylaxis Verified 12/01/24 22:29 vaccine [id number] 2008 (From influenza A (H1N1)) Tetanus Vaccines and Toxoid Allergy Severe Anaphylaxis Verified 12/01/24 22:29 Review of Systems ROS Status of ROS 10 or more systems reviewed and unremark able except as noted in history and below [facility] Social History Smoking status: Never smoker Little interest or pleasure in doing things: not at all Feeling down, depressed, or hopeless: not at all Exam Narrative Exam Narrative: Prior to examining the patient, I have washed with hospital approved and provided Antiseptic Hand Dry Cleaning Machine Operator Helper and have also applied gloves.? Prior to touching the patient, I asked for consent to examine the patient.? General: Alert and oriented, well nourished, mild distress. Incessant coughing. Eye: PERRL, EOMI, normal conjunctiva. HENT: Normocephalic, normal hearing, moist oral mucosa, no scleral icterus, no sinus tenderness. Neck: Supple, non-tender, no carotid bruits, no JVD, no lymphadenopathy. Lungs: + conversational dyspnea, end-expiratory wheezing, coarse breath sounds, non-labored respiration. Heart: Normal rate, regular rhythm, no murmur, gallop or edema. Abdomen: Soft, non-tender, non-distended, normal bowel sounds, no masses. Musculoskeletal: Normal range of motion and strength, no tenderness or swelling. Skin: Skin is warm, dry and pink, no rashes or lesions. Neurologic: Awake, alert, and oriented X3, CN II-XII intact. Psychiatric: Cooperative, appropriate mood and affect.? Following the conclusion of the examination, I have washed my hands thoroughly after removing examination gloves. Constitutional Vital Signs, click to edit/add: Last Vital Signs Temp 98.9 F 12/02/24 00:00 Pulse 86 12/02/24 00:36 Resp 18 12/02/24 00:36 BP 164/85 H 12/02/24 00:00 Pulse Ox 98 12/02/24 00:36 O2 Del Method Room Air 12/02/24 00:36 Course Reevaluation(s) Reevaluation #1: I reevaluated the patient. Her cough is still present albeit improved. She still had an expiratory wheezing although it was also improved. We are going to give the patient an additional breathing treatment. And the plan for the patient would be to continuous pickling line pickler helper her prescriptions for albuterol metered-dose inhaler, steroids, and Tessalon Perles. Prior to disposition we will give the p atient another albuterol nebulized treatment. Initially I was going to offer the patient azithromycin because I strongly felt that the anti-inflammatory properties would help her relieve her symptoms. However, the patient stated that azithromycin makes her agitated. Patient is aware of the discharge disposition. She is aware of all of the findings from the laboratories. She has no further questions regarding her care treatment she is going to receive today or in the future. Patient was told if she gets more short of breath or if she develops new or worsening symptoms then she should return to the emergency department as soon as possible for further evaluation and treatment. Time: 00:21 Vital Signs Vital signs: Vital Signs Temperature 98.3 F 12/01/24 22:12 Pulse Rate 83 12/01/24 22:12 Respiratory Rate 20 12/01/24 22:12 Blood Pressure 154/80 H 12/01/24 22:12 Pulse Oximetry 95 12/01/24 22:12 Oxygen Delivery Method Room Air 12/01/24 22:12 Temperature 98.9 F 12/02/24 00:00 Pulse Rate 86 12/02/24 00:36 Respiratory Rate 18 12/02/24 00:36 Blood Pressure 164/85 H 12/02/24 00:00 Pulse Oximetry 98 12/02/24 00:36 Oxygen Delivery Method Room Air 12/02/24 00:36 MDM - SOB/Dyspnea MDM Narrative Medical decision making narrative: In summary, the patient is a 53-year-old female with a history of of asthma/reactive airway disease. Presents urgency department after having upper respiratory type symptoms for the last 3 to 4 days. Patient's granddaughter did have a viral illness. We did obtain a COVID, influenza, RSV swabs which were all negative. Patient's chest x-ray was negative for any acute process. Have some improvement with the DuoNeb and albuterol nebulized treatments x 2 with steroids. Differential Diagnosis Differential diagnosis: Likely acute exacerbation of chronic obstructive airways disease, community acquired pneumonia and asthma with exacerbation Medical Records Attestation: I reviewed the patient's medical records. Lab Data Attestation: I reviewed the patient's lab results. Labs: Lab Results 12/01/24 Range/Units 22:30 Influenza Type A Ag Negative Influenza Type B Ag Negative SARS-CoV-2 Ag (CV2AG) Negative (NEGATIVE) Imaging Data Chest x-ray: Attestation: I personally reviewed and interpreted this imaging study as follows: Radiologist's impression: ITS Impressions Chest X-Ray 12/01/24 22:47 IMPRESSION: 1. No acute cardiopulmonary process. Electronically authenticated by: PASTOR ESPANA Date: 12/02/2024 00:00 Discharge Plan Discharge Chief Complaint: Shortness of Breath/Dyspnea Clinical Impression: Bronchitis Patient Disposition: Home, Self-Care Time of Disposition Decision: 00:22 Condition: Good Mode of Transportation: Private Vehicle Prescriptions / Home Meds: New prednisone 10 mg tablet 10 mg PO DAILY Qty: 30 0RF Rx Instructions: 4 tabs x 3 days, 3 tabs x 3 days, 2 tabs x 3 days, 1 tab x 3 days albuterol sulfate 90 mcg/actuation HFA aerosol inhaler 2 inh inhalation Q4H PRN (Reason: shortness of breath or wheezing) Qty: 8.5 0RF benzonatate 200 mg capsule 200 mg PO TID PRN (Reason: cough) Qty: 14 0RF No Action fluoxetine 40 mg capsule 40 mg PO DAILY pantoprazole 40 mg tablet,delayed release (DR/EC) 40 mg PO DAILY furosemide 20 mg tablet 10 mg PO DAILY gabapentin 100 mg capsule 300 mg PO QPM Rx Instructions: 100 am and 200mg at HS nabumetone 500 mg tablet 500 mg PO BID nystatin 100,000 unit/gram powder 1 applic topical BID 14 Days Qty: 30 0RF aspirin 81 mg tablet,delayed release (DR/EC) 81 mg PO DAILY modafinil [Provigil] 100 mg tablet 100 mg PO DAILY magnesium oxide 400 mg (241.3 mg magnesium) tablet 400 mg PO QPM montelukast 10 mg tablet 10 mg PO QPM naltrexone 1.5 mg capsule 4 mg PO DAILY Print Language: Iranian Instructions: Acute Bronchitis (ED) Additional Instructions: Thank you for trusting me with your care today. If your symptoms get worse or something changes, please not hesitate to return to the emergency department for further evaluation and treatment. Referrals: Melani Deras NP [Primary Care Provider] - 1 week Discharge Date/Time: 12/02/24 01:40
[2024-12-02 00:36] VITALS: PULSE 86; O2SAT 98
[2024-12-02] MEDS: ALBUTEROL SULFATE 2.5 MG/3 ML VIAL NEB IH (00:42)
== END 2024-12-02 01:40 | disposition home or self-care (01) ==
PROVIDERS: Emergency Provider Emergency Medicine; PCP Nurse Practitioner
DX: J45.909 Unspecified asthma, uncomplicated (principal); Z86.16 Personal history of COVID-19
CPT/HCPCS: 71046; 87502; 87804; 87811; 94640; 99284; J7512

== ENCOUNTER 2025-01-08 17:30 | Emergency (ER) | payer OTHER, SELFPAY ==
[2025-01-08 17:39] VITALS: BP 158/73; PULSE 65; TEMP 36.8; O2SAT 98; BMI 49.4
--- OUTSIDE RECORDS SUMMARY | 2025-01-08 17:47 | XMS_ITS | CCD ---
Author Organization [facility]ini[facility] Care Team Providers Care Applied Biology Professor Name Role Phone Unavailable Primary Care Provider UnavailSelene Garrison Unavailable Rose De Unavailable Unavailable Primary Care Provider UnavailRicardo Sands Attending Unavailable Ricardo Young Admitting Unavailable Mahesh Rocha Primary Care Unavailable Unavailable Primary Care Provider Unavailcolby e AICHHOLZ, ATTIC FANS MECHANIC MELANI Primary Care Unavailable AICHHOLZ, ATTIC FANS MECHANIC MELANI Attending Unavailable AICHHOLZ, ATTIC FANS MECHANIC MELANI Admitting Unavailable AICHHOLZ, ATTIC FANS MECHANIC MELANI Consulting Unavailable AICHHOLZ, ATTIC FANS MECHANIC MELANI Consulting Unavailable AICHHOLZ, ATTIC FANS MECHANIC MELANI Attending Unavailable AICHHOLZ, ATTIC FANS MECHANIC MELANI Admitting Unavailable AICHHOLZ, ATTIC FANS MECHANIC MELANI Primary Care Unavailable AICHHOLZ, ATTIC FANS MECHANIC MELANI Primary Care Unavailable LEES ., DR YIMI Last Attending Unavailable LEES ., DR YIMI Last Admitting Unavailable LEES ., DR YIMI Last Consulting Unavailable MARCOS NEWBERRY Consulting Unavailable SERAFIN, MELANI Consulting Unavailable VANESSA MARTINEZ Unavailable AICHHOLZ, ATTIC FANS MECHANIC MELANI Admitting Unavailable AICHHOLZ, ATTIC FANS MECHANIC MELANI Primary Care Unavailable AICHHOLZ, ATTIC FANS MECHANIC MELANI Attending Unavailable DR VANESSA PRESLEY V Consulting Unavailable AICHHOLZ, ATTIC FANS MECHANIC MELANI Consulting Unavailable AICHHOLZ, ATTIC FANS MECHANIC MELANI Admitting Unavailable AICHHOLZ, ATTIC FANS MECHANIC MELANI Primary Care Unavailable AICHHOLZ, ATTIC FANS MECHANIC MELANI Consulting Unavailable AICHHOLZ, ATTIC FANS MECHANIC MELANI Attending Unavailable AICHHOLZ, ATTIC FANS MECHANIC MELANI Attending Unavailable AICHHOLZ, ATTIC FANS MECHANIC MELANI Admitting Unavailable DR VANESSA PRESLEY V Consulting Unavailable AICHHOLZ, ATTIC FANS MECHANIC MELANI Primary Care Unavailable AICHHOLZ, ATTIC FANS MECHANIC MELANI Consulting Unavailable AICHHOLZ, ATTIC FANS MECHANIC MELANI Admitting Unavailable AICHHOLZ, ATTIC FANS MECHANIC MELANI Consulting Unavailable AICHHOLZ, ATTIC FANS MECHANIC MELANI Attending Unavailable AICHHOLZ, ATTIC FANS MECHANIC MELANI Primary Care Unavailable SAMSA ., SLADE Attending Unavailable SAMSA ., SLADE Admitting Unavailable AICHHOLZ, ATTIC FANS MECHANIC EMLANI Primary Care Unavailable JOVI, DR PASTOR Tyler Consulting Unavailable SAMSA ., SLADE Consulting Unavailable AICHHOLZ, ATTIC FANS MECHANIC MELANI Admitting Unavailable AICHHOLZ, ATTIC FANS MECHANIC MELANI Consulting Unavailable AICHHOLZ, ATTIC FANS MECHANIC MELANI Attending Unavailable AICHHOLZ, ATTIC FANS MECHANIC MELANI Primary Care Unavailable AICHHOLZ, ATTIC FANS MECHANIC MELANI Primary Care Unavailable PAY ., DR BECK Attending Unavailable PAY ., DR BECK Admitting Unavailable PAY ., DR BECK Consulting Unavailable PHUONGCHMINNIE ., KARTHIKEYAN KLINE Consulting Unavailabl e AICHHOLZ, ATTIC FANS MECHANIC MELANI Primary Care Unavailable ANTONIA ., KARTHIKEYAN KLINE Consulting Unavailabl e LENIN ., ALEJANDRA Attending Unavailable LENIN ., ALEJANDRA Admitting Unavailable LENIN ., ALEJANDRA Admitting Unavailable AICHHOLZ, ATTIC FANS MECHANIC MELANI Primary Care Unavailable MARCOS NEWBERRY Unavailable LENIN ., ALEJANDRA Attending Unavailable LENIN ., ALEJANDRA Consulting Unavailable PROVIDER, UNKNOWN Attending Unavailable PROVIDER, UNKNOWN Admitting Unavailable PATIENT, SELF Referring Unavailable FRACISCO SKAGGS Attending Unavailable Unavailable Primary Care Provider Unavailcolby Rocha MD, Mahesh Primary Care Provider [phone] Aichholz [employer], Melani Unavailable ELVIS BRONSON Attending Unavailable EBEN [...] Referring Unavailable EDDY LORENZANA Attending Unavailable JACKIE HERNANDEZ Attending Unavailable AICHHOLZ, MELANI Referring Unavailable AICHHOLZ, MELANI Attending Unavailable EDDY LORENZANA Attending Unavailable AICHHOLZ, MELANI Attending Unavailable AYLIN DAWN Attending Unavailable AICHHOLZ, MELANI J Referring Unavailable AICHHOLZ, MELANI J Primary Care Unavailable Silver Austin DO Primary Care Provider Allergies Allergy Classification Reported Allergen(s) Allergy Type Date of Onset Reaction(s) Facility (20 sources) Tetanus vaccine; Translations: [TETANUS TOXOIDS] Propensity to adverse reactions to drug [facility] ([facility] source[facility] Allopurinol Drug Allergy [address] [facility] Repository (1 source) TETANUS AND DIPHTHERIA TOXOIDS; Translations: [TETANUS AND DIPHTHERIA TOXOIDS] Propensity to adverse reactions to drug (disorder) [facility] Medications Current Medications Medication Drug [...] Allergy Active biotin 10 mg oral capsule (17 sources) Start: 12-12-2024 End: 12-12-2025 take 1 capsule by mouth in the morning biotin 10 MG capsule Indications: Lumbar radiculopathy , Idiopathic progressive neuropathy Take 1 capsule (10 mg) by mouth in the morning and 1 capsule (10 mg) before bedtime. 180 capsule 3 12/12/2024 12/12/2025 Active Start: 11-19-2024 End: 02-17-2025 take 3 capsules [...] (True Metrix Air Glucose Meter) w/Device kit (17 sources) Start: 03-29-2024 Blood Glucose Monitoring Suppl [...] 03/06/2024 Active dexamethasone 2 mg oral tablet (7 sources) Corticosteroid Start: End: take 1 tablet [...] by mouth in the morning. 0 Active [id number] 0.3 ml EPINEPHrine 1 mg/ml auto-injector (4 [...] hands or feet) 30 tablet 2 11/14/2024 Active Start: 05-21-2024 take 1 tablet by [...] Gelatin Capsules, Empty, (Empty Capsule Size 3 Greene/Clr) capsule (20 sources) Start: 01-30-2024 Gelatin Capsules, Empty, (Empty Capsule Size 3 Greene/Clr) capsule 01/30/2024 Active hydrOXYzine hydrochloride 25 mg [...] oral tablet (20 sources) Start: 09-28-2023 End: 01-19-2025 take 1 tablet by mouth once daily magnesium oxide (Mag-Ox) 400 (240 Mg) MG tablet Indications: Vitamin deficiency Take 1 tablet (400 mg) by mouth Daily 30 tablet 2 12/20/2024 01/19/2025 Active 24 hr metFORMIN hydrochloride 500 mg [...] 0 Active metFORMIN HCl Ac tive modafinil 200 mg oral tablet (20 sources) Sympathomimetic-like Agent Start: 12-12-2024 End: 01-11-2025 take 1 tablet by mouth once daily modafinil (Provigil) 200 MG tablet Indications: FELICE (obstructive sleep apnea) Take 1 tablet (200 mg) by mouth Daily 30 tablet 2 12/12/2024 01/11/2025 Active Start: 09-20-2024 take 1 tablet by beth th once daily Modafinil 100 mg tablet Active [...] 30 g 11 12/06/2023 01/05/2024 Active nystatin [id number] unt/ml oral suspension (2 sources) Polyene Antifungal Start: 05-31-2022 take 4 mL by mouth four times daily Nystatin [id number] UNIT/ML 4 ml swish and spit Mouth/Throat Four times a day for 14 days May, Active Start: 12-08-2021 take 1 mL by mouth t hree times daily Nystatin 100,000 unit/mL suspension Active 1 ML PO Three times daily December 08, 2021 12:00am ondansetron 4 mg oral tablet (10 sources) Serotonin-3 Receptor Antagonist Start: 10-25-2024 take [...] Take before meals. 30 tablet 2 11/17/2024 Active Start: 07-08-2024 End: 08-07-2024 take 1 [...] Active 0.25 MG PO Daily at bedtime 03 17December 08, 2021 12:00am vitamin B12 (2 sources) [...] 1.5 mg/ml oral solution (3 sources) Uncompetitive M-ajroqh-G-aspartate Receptor Antagonist, Sigma-1 Agonist Start: 06-26-2021 [place] DM 7.5-7.5 MG/5ML 10 ml Orally every 6-8 hours as needed for 8 days 14 Aug, 2021 Not-Taking methylPREDNISolone 4 mg oral tablet (3 [...] [Unspecified asthma, uncomplicated] Onset: 11-28-2023 11-28-2023 Chronic Congestive heart failure; nonhypertensive (1 source) Acute on chronic systolic heart failure; Translations: [Acute on chronic systolic (congestive) heart failure] 01-07-2025 Chronic Disorders of teeth and jaw (20 [...] Onset: 03-14-2019 07-24-2023 Chronic Nonspecific chest pain (17 sources) Chest pain; Translations: [Chest pain, unspecified] Onset: 07-05-2022 Episodic Nutritional deficiencies (2 sources) Vitamin D deficiency, unspecified; Translations: [Vitamin D deficiency, unspecified] Onset: 05-23-2023 Chronic Nutritional deficiencies (20 sources) Vitamin deficiency; Translations: [Vitamin deficiency, unspecified] Onset: 05-09-2024 08-25-2024 Episodic Osteoarthritis (20 sources) Osteoarthrosis of the carpometacarpal joint of the thumb; Translations: [Osteoarthritis of first carpometacarpal joint, unspecified] Onset: 03-14-2019 09-26-2023 Chronic Osteoporosis (2 sources) Postmenopausal osteoporosis; Translations: [Age-related osteoporosis without current pathological fracture] 07-10-2024 Chronic Other aftercare (1 source) Other manager intermediate (current) drug therapy; Translations: [OTH [facility]PC CURRENT DRUG THERAPY] Onset: 01-25-2023 Episodic Other aftercare (1 source) alf (current) use of oral hypoglycemic drugs; Translations: [...] including parasitic (2 sources) Post-viral disorder; 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 Other infections; including parasitic (20 [...] Onset: 01-16-2023 Episodic Other upper respiratory disease (11 sources) Seasonal allergy; Translations: [Other seasonal allergic [...] 09-20-2024 Episodic Rheumatoid arthritis and related disease (11 sources) Rheumatoid arthritis; Translations: [Rheumatoid arthritis, unspecified] Onset: 10-28-2024 09-20-2024 Chronic Unclassified (1 source) R10.11 - Right upper [...] Candidal stomatitis Onset: 05-31-2022 Resolved: 05-31-2022 Episodic Other aftercare (1 source) alf (current) use of aspirin; Translations: [FPC CURRENT USE OF ASPIRIN] Onset: 07-04-2022 Episodic [...] reasons] Onset: 05-09-2024 Resolved: 05-09-2024 05-09-2024 Episodic Spondylosis; intervertebral disc disorders; other back problems (20 sources) Sciatica, left side; Translations: [Lumbar radiculopathy] Onset: 11-23-2023 Episodic Suicide and intentional self-inflicted injury (20 sources) Suicide attempt ; Translations: [Suicide attempt, initial encounter] Onset: 02-05-2024 Resolved: 05-09-2024 05-09-2024 Episodic Unclassified (1 source) Persistent cough for 3 weeks or longer R05.3 Onset: 05-31-2022 Resolved: 05-31-2022 Viral infection (20 sources) COVID-19; Translations: [Other specified viral infection] Onset: 02-05-2024 Resolved: 02-05-2024 02-05-2024 Episodic Results Test Name Value Interpretation Reference Range Facility DOPPLER ECHO HEART,COMPLETEo n 01-07-2025 Darius Hastings MD ECHOCARDIOGRAM REPORT [facility] PATIENT Lu Cancino :1970 AGE:[age] year old INDICATION: R06.02 DATE: January 01, 2025 TECH:Nusrat Bryant RDCS Ht 157.5 cm (5' 2 ) Wt 122.5 kg (270 lb) BMI 49.38 kg/m REFERRING PHYSICIAN: Darius Hastings M.D. COMMENTS: M-MODE MEASUREMENTS CM LVID END DIASTOLE: 5.50 (3.5-5.7) LVID END SYSTOLE: 4.90 (1.5-3.9) % FRAC. SHORTENIN (28-44%) EJECTION FRACTION: Visual estimate 45-50% RIGHT VENTRICLE: 3.70 (0.9-2.6) IV SEPTUM: 0.70 (0.6-1.1) LV POSTERIOR WALL: 0.50 (0.6-1.1) LEFT ATRIUM: 4.40 (1.9-4.0) AORTIC ROOT: 2.90 (2.0-3.7) AORTIC CUSP: 2.30 (1.5-2.6) SHUNTS: No PERICARDIAL EFFUSION: No AORTIC VALVE PEAK VELOCITY: 1.18m/s INSUFF: LVOT: 2.00cm PULMONIC VALVE PEAK VELOCITY: 1.08m/s MITRAL VALVE PEAK VELOCITY: 0.86m/s MR: TRICUSPID VALVE PEAK VELOCITY: 0.50m/s RVSP: 13.53mmhg TR: 0.94m/s IMPRESSIONS: TECHNICAL QUALITY: Poor cardiac windows LEFT VENTRICLE: Overall mildly reduced LV systolic function; estimated EF 45 %. The LV is normal in thickness and mildly dilated. There is normal diastolic function. RIGHT VENTRICLE: Overall normal in dimension and normal in thickness. There is normal right ventricular contractility. RVSP 13 mm HG LEFT ATRIUM: Mildly dilated. RIGHT ATRIUM: Normal in size. AORTA: Aortic root is normal, AORTIC VALVE: Valve is normal and tricuspid. There is normal mobility. No vegetations are seen . Doppler systolic flow pattern is normal and there is no regurgitation noted. MITRAL VALVE: Valve is normal with normal mobility. No vegetations are seen. Doppler diastolic flow pattern is normal. There is mild regurgitation. TRICUSPID VALVE: Valve is well visualized and is normal. Doppler diastolic flow pattern is normal and there is mild regurgitation. PULMONIC VALVE: Valve is well visualized and is normal. There is no regurgitation noted. PERICARDIUM: There is no pericardial effusion. IVC: Normal with respiratory variation. SUMMARY: Overall mildly reduced left ventricular systolic function with an estimated ejection fraction of 45 %. The left ventricle is normal in thickness and mildly dilated. Color Flow Doppler interrogation reveals mild MR mild TR. CHF Darius Hastings M.D., [facility] [place] #: [phone] [place] #: [phone] [facility] HbA1c (Bld) [Mass fraction]o n 10-28-2024 Interpretation and review of laboratory results [facility] Hematology and Cell countson 10-28-2024 HbA1c (Bld) [Mass fraction] 6.2 % [facility] IGP,APTIMA HPV,AGE GDLNon AGE GDLN ACOG TESTING Note . [facility] [employer] Comment on above: TESTS RESULT FLAG UN ITS REF RANGE LAB Clinician Provided Cytology Information Source.............Cervix;Endocervix No. of containers..01 ThinPrep Vial Age Algo ACOG Emy... FLAG LEGEND: L-Low Normal,H-High Normal,LL-Alert Low,HH-Alert High <-Panic Low,>-Panic High,A-Abnormal,AA-Critical Abnormal Performed at: 01 = [address] [place] [address] Deirdre Byrnes MD, HPV APTIMA Negative Negative [facility] Comment on above: This nucleic acid am plification test detects fourteen high- risk HPV types (16,18,31,33,35,39,45,51,52,56,58,59,66,68) without differentiation. Performed at: =[facility] [address] [id number] Powerhouse Oiler: Deirdre Byrnes MD, Phone: [phone] Performed at: WB - [facility] [address], [place] [id number] Powerhouse Oiler: Deirdre Byrnes MD, Phone: [phone] IGP, APTIMA HPV, RFX 16/18,45 Note . [facility] Comment on above: TESTS RESULT FLAG UN ITS REF RANGE LAB DIAGNOSIS: 02 NEGATIVE FOR INTRAEPITHELIAL LESION OR MALIGNANCY. Specimen adequacy: 02 Satisfactory for evaluation. No endocervical component is identified. Performed by: 02 Jessica Valentine, Pump Erector ([facility]) . 02 Note: Note 02 The Pap [...] High,A-Abnormal,AA-Critical Abnormal Performed at: 02 WB [facility] [address] [place] [address] Deirdre Byrnes MD, BRUSH-SPATULA CERVIX ENDOCERVIX [facility] [employer] BI MAMMOGRAM SCREENING TOMOS YNILDAHESIS BILATERALon 05-28-2024 BI MAMMOGRAM SCREENING TOMOSYNTHESIS BILATERAL [...] IS VERY IMPORTANT TO YOUR HEALTH. THE [employer] GUIDELINES RECOMMEND THAT WOMEN 40 [...] MD Normal Not Available Follow-Upon 05-23-2023 Follow-Up [id number] Lu Cancino 1970 F Date Provider Department Center 05/23/2023 [facility] Joselito Heal Family History Family history unknown: Yes Level of Service:57470 RI OFFICE/OUTPATIENT ESTABLISHED MOD [facility] 30-39 MIN Reason for Visit and Comments: Follow-up [255921] - Flare up [facility] XR KUB 1 VIEWon 03-22-2023 XR [...] VANESSA PRESLEY Date: 2023-03-22 07:45 Normal [facility] UA RANDOM W/MICROSCOPICon BACTERIA TRACE Abnormal NONE SEEN [facility] Comment on above: Performed By: #### U AMIC #### [facility] Laboratory [address] [address] [address] Bertram Paulino Bilirubin Ql (U) Negative Normal NEGATIVE The [facility] Comment on above: Performed By: #### U AMIC #### [facility] [address] [address] [address] Bertram Paulino CAST NONE SEEN Normal NONE SEEN [facility] Comment on above: Performed By: #### U AMIC #### [facility] [address] [address] [address] Bertram Paulino Clarity (U) CLEAR Normal CLEAR [facility] Comment on above: Performed By: #### U AMIC #### [facility] [address] [place] [address] Dr. Bertram Paulino Color (U) LT. YELLOW Normal YELLOW [facility] Comment on above: Performed By: #### U AMIC #### [facility] [address] [address] [address] Bertram Paulino Crystals LM Nom (Urine sed) NONE SEEN Normal NONE SEEN [facility] Comment on above: Performed By: #### U AMIC #### [facility] [address] [address] [address] Bertram Paulino Epithelial cells LM Ql (Urine sed) RARE Normal NONE SEEN /RARE [facility] Comment on above: Performed By: #### U AMIC #### [facility] [address] [address] [address] Bertram Paulino Glucose Ql (U) Negative Normal NEGATIVE [facility] Comment on above: Performed By: #### U AMIC #### [facility] [address] [address] [address] Bertram Paulino Hemoglobin Ql (U) Negative Normal NEGATIVE The [facility] Comment on above: Performed By: #### U AMIC #### [facility] [address] [place] [address] Dr. Bertram Paulino Ketones Ql (U) Negative Normal NEGATIVE [facility] Comment on above: Performed By: #### U AMIC #### [facility] [address] [address] [address] Bertram Paulino LEUKOCYTES Negative Normal NEGATIVE [facility] Comment on above: Performed By: #### U AMIC #### [facility] [address] [address] [address] Bertram Paulino MUCOUS NONE SEEN Normal NONE SEEN [facility] Comment on above: Performed By: #### U AMIC #### [facility] [address] [address] [address] Bertram Paulino Nitrite Ql (U) Negative Normal NEGATIVE [facility] Comment on above: Performed By: #### U AMIC #### [facility] [address] [place] [address] Dr. Bertram Paulino pH (U) 8.5 [pH] Normal 5-9 [facility] Comment on above: Performed By: #### U AMIC #### [facility] [address] [place] [address] Dr. Bertram Paulino RBC 0-2 Normal 0-2 [facility] Comment on above: Performed By: #### U AMIC #### [facility] [address] [address] [address] Bertram Paulino SPEC GRAVITY 1.015 Normal 1.005-<=1.025 [facility] Comment on above: Performed By: #### U AMIC #### [facility] [address] [address] [address] Bertram Paulino UA PROTEIN Negative Normal NEGATIVE/ TRACE [facility] Comment on above: Performed By: #### U AMIC #### [facility] [address] [address] [address] Bertram Paulino Urobilinogen Qn (U) 0.2 {Yazmin'U}/dL Normal 0.2 - 1. 0 [facility] Comment on above: Performed By: #### U AMIC #### [facility] [address] [place] [address] Dr. Bertram Paulino WBC NONE SEEN Normal NONE SEEN [facility] Comment on above: Performed By: #### U AMIC #### [facility] [address] [place] [address] Dr. Bertram Paulino CBC AUTO DIFFon 01-23-2023 BASO # 0.0 103/ul Normal 0.0-0.1 [facility] Comment on above: Performed By: #### C MP, LIPID, TSH #### [facility] [address] [place] [address] Dr. Bertram Paulino Basophils/100 WBC (Bld) 0.5 % Normal 0.2-2.[address] [facility] Comment on above: Performed By: #### C MP, LIPID, TSH #### [facility] [address] [place] [address] Dr. Bertram Paulino EO # 0.1 103/ul Normal 0.0-0.[address] [facility] Comment on above: Performed By: #### C MP, LIPID, TSH #### [facility] [address] [place] [address] Dr. Bertram Paulino Eosinophils/100 WBC (Bld) 1.2 % Normal 0.9-7.[address] [facility] Comment on above: Performed By: #### C MP, LIPID, TSH #### [facility] [address] [place] [address] Dr. Bertram Paulino Erythrocyte distribution width (RBC) [Ratio] 12.8 % Normal 11.0-15.[address] [facility] Comment on above: Performed By: #### C MP, LIPID, TSH #### [facility] [address] [place] [address] Dr. Bertram Paulino Hematocrit (Bld) [Volume fraction] 38.9 % Normal 36.0-48.[address] [facility] Comment on above: Performed By: #### C MP, LIPID, TSH #### [facility] [address] [place] [address] Dr. Bertram Paulino Hemoglobin (Bld) [Mass/Vol] 13.3 g/dL Normal 12.0-16.[address] [facility] Comment on above: Performed By: #### C MP, LIPID, TSH #### [facility] [address] [address] [address] Bertram Paulino IG # 0.04 10e3/ul Critically high 0.00-0.03 [facility] Comment on above: Performed By: #### C MP, LIPID, TSH #### [facility] [address] [address] [address] Bertram Paulino IG % 0.5 % Normal 0.0-0.5 [facility] Comment on above: Performed By: #### C MP, LIPID, TSH #### [facility] [address] [address] [address] Bertram Paulino LYMPH # 1.9 103/ul Normal 1.2-3.8 [facility] Comment on above: Performed By: #### C MP, LIPID, TSH #### [facility] [address] [place] [address] Dr. Bertram Paulino Lymphocytes/100 WBC (Bld) 24.7 % Normal 20.5-60.0 [facility] Comment on above: Performed By: #### C MP, LIPID, TSH #### [facility] [address] [address] [address] Bertram Paulino MANUAL DIFF REQ NO Normal [facility] Comment on above: Performed By: #### C MP, LIPID, TSH #### [facility] [address] [address] [address] Bertram Paulino MCH (RBC) [Entitic mass] 30.0 pg Normal 26.7-34.0 [facility] Comment on above: Performed By: #### C MP, LIPID, TSH #### [facility] [address] [address] [address] Bertram Paulino MCHC (RBC) [Mass/Vol] 34.2 g/dL Normal 29.9-35.2 [facility] Comment on above: Performed By: #### C MP, LIPID, TSH #### [facility] [address] [address] [address] Bertram Paulino MCV (RBC) [Entitic vol] 87.6 fL Normal 81.0-99.0 [facility] Comment on above: Performed By: #### C MP, LIPID, TSH #### [facility] [address] [place] [address] Dr. Bertram Paulino MONO # 0.4 103/ul Normal 0.3-0.8 [facility] Comment on above: Performed By: #### C MP, LIPID, TSH #### [facility] [address] [place] [address] Dr. Bertram Paulino Monocytes/100 WBC (Bld) 5.3 % Normal 1.7-12.0 [facility] Comment on above: Performed By: #### C MP, LIPID, TSH #### [facility] [address] [place] [address] Dr. Bertram Paulino NEUT # 5.1 103/ul Normal 1.4-6.5 [facility] Comment on above: Performed By: #### C MP, LIPID, TSH #### [facility] [address] [place] [address] Dr. Bertram Paulino Neutrophils/100 WBC (Bld) 67.8 % Normal 43.0-75.0 [facility] Comment on above: Performed By: #### C MP, LIPID, TSH #### [facility] [facility] [address] [place] [address] Dr. Bertram Paulino Platelet mean volume (Bld) [Entitic vol] 10.7 fL Normal 9.5-13.5 [facility] Comment on above: Performed By: #### C MP, LIPID, TSH #### [facility] [address] [place] [address] Dr. Bertram Paulino PLT 270 103/ul Normal 150-[address] [facility] Comment on above: Performed By: #### C MP, LIPID, TSH #### [facility] [address] [place] [address] Dr. Bertram Paulino RBC 4.44 106/ul Normal 4.20-5.[address] [facility] Comment on above: Performed By: #### C MP, LIPID, TSH #### [facility] [address] [place] [address] Dr. Bertram Paulino WBC 7.5 103/ul Normal 4.0-11.0 [facility] Comment on above: Performed By: #### C MP, LIPID, TSH #### [facility] [address] [address] [address] Bertram DAIGLE URINE PROFILEon 3 Bilirubin Ql (U) Negative Normal NEGATIVE [facility] Comment on above: Performed By: #### C MP, LIPID, TSH #### [facility] [address] [place] [address] Dr. Bertram Paulino Clarity (U) CLEAR Normal CLEAR [facility] Comment on above: Performed By: #### C MP, LIPID, TSH #### [facility] [address] [address] [address] Bertram Paulino Color (U) LT. YELLOW Normal YELLOW [facility] Comment on above: Performed By: #### C MP, LIPID, TSH #### [facility] [address] [place] [address] Dr. Bertram ETIENNE A micrscopic examination will be performed if indicated. Normal [facility] Comment on above: Performed By: #### C MP, LIPID, TSH #### [facility] [address] [place] [address] Dr. Bertram Paulino Glucose Ql (U) Negative Normal NEGATIVE [facility] Comment on above: Performed By: #### C MP, LIPID, TSH #### [facility] [address] [place] [address] Dr. Bertram Paulino Hemoglobin Ql (U) Negative Normal NEGATIVE [facility] Comment on above: Performed By: #### C MP, LIPID, TSH #### [facility] [address] [place] [address] Dr. Bertram Paulino Ketones Ql (U) Negative Normal NEGATIVE [facility] Comment on above: Performed By: #### C MP, LIPID, TSH #### [facility] [address] [place] [address] Dr. Bertram Paulino LEUKOCYTES Negative Normal NEGATIVE [facility] Comment on above: Performed By: #### C MP, LIPID, TSH #### [facility] [address] [place] [address] Dr. Bertram Paulino Nitrite Ql (U) Negative Normal NEGATIVE [facility] Comment on above: Performed By: #### C MP, LIPID, TSH #### [facility] [address] [place] [address] Dr. Bertram Paulino pH (U) 7.0 [pH] Normal 5-9 [facility] Comment on above: Performed By: #### C MP, LIPID, TSH #### [facility] [address] [place] [address] Dr. Bertram Paulino SPEC GRAVITY <=1.005 Abnormal 1.005-<=1.025 [facility] Comment on above: Performed By: #### C MP, LIPID, TSH #### [facility] [address] [place] [address] Dr. Bertram Paulino UA PROTEIN Negative Normal NEGATIVE/ TRACE [facility] Comment on above: Performed By: #### C MP, LIPID, TSH #### [facility] [address] [place] [address] Dr. Bertram Paulino UR MICRO IND NOT INDICATED Normal [facility] Comment on above: Performed By: #### C MP, LIPID, TSH #### [facility] [address] [place] [address] Dr. Bertram Paulino Urobilinogen Qn (U) 0.2 {Yazmin'U}/dL Normal 0.2 - 1. 0 [facility] Comment on above: Performed By: #### C MP, LIPID, TSH #### [facility] [address] [place] [address] Dr. Bertram Paulino MONOon 01-23-2023 Monocytes (Bld) [#/Vol] Negative Normal NEGATIVE [facility] Comment on above: Performed By: #### C MP, LIPID, TSH #### [facility] [address] [place] [address] Dr. Bertram Paulino PROF 14(COMP METB)on 023 Albumin [Mass/Vol] 4.1 g/dL Normal 3.4-5.0 [facility] Comment on above: Performed By: #### H STROPN, TSH, CMP #### [facility] [address] [address] [address] Bertram Paulino Albumin/Globulin [Mass ratio] 1.2 {ratio} Normal [facility] Comment on above: Performed By: #### H STROPN, TSH, CMP #### [facility] [address] [address] [address] Bertram Paulino ALP [Catalytic activity/Vol] 71 U/L Normal 46-116 [facility] Comment on above: Performed By: #### H STROPN, TSH, CMP #### [facility] [address] [address] [address] Bertram Paulino ALT [Catalytic activity/Vol] 53 U/L Normal 14-59 [facility] Comment on above: Performed By: #### H STROPN, TSH, CMP #### [facility] [address] [place] [address] Dr. Bertram Paulino Anion gap [Moles/Vol] 8.1 mmol/L Normal [facility] Comment on above: Performed By: #### H STROPN, TSH, CMP #### [facility] [address] [address] [address] Bertram Paulino AST [Catalytic activity/Vol] 35 U/L Normal 15-37 [facility] Comment on above: Performed By: #### H STROPN, TSH, CMP #### [facility] [address] [place] [address] Dr. Bertram Paulino Bilirubin [Mass/Vol] 0.3 mg/dL Normal 0.2-1.0 [facility] Comment on above: Performed By: #### H STROPN, TSH, CMP #### [facility] [address] [address] [address] Bertram Paulino Calcium [Mass/Vol] 9.3 mg/dL Normal 8.5-10.1 [facility] Comment on above: Performed By: #### H STROPN, TSH, CMP #### [facility] [address] [address] [address] Bertram Paulino Chloride [Moles/Vol] 103 mmol/L Normal 98-107 [facility] Comment on above: Performed By: #### H STROPN, TSH, CMP #### [facility] [address] [address] [address] Bertram Paulino CO2 [Moles/Vol] 29.5 mmol/L Normal 21.0-32.0 [facility] Comment on above: Performed By: #### H STROPN, TSH, CMP #### [facility] [address] [address] [address] Bertram Paulino Creatinine [Mass/Vol] 0.62 mg/dL Normal 0.55-1.02 [facility] Comment on above: Performed By: #### H STROPN, TSH, CMP #### [facility] [address] [address] [address] Bertram Paulino EGFR-AF RUSSIAN >60 Normal >=60 [facility] Comment on above: Performed By: #### H STROPN, TSH, CMP #### [facility] [address] [address] [address] Bertram Paulino EGFR-NON AF RUSSIAN >60 Normal >=60 [facility] Comment on above: Performed By: #### H STROPN, TSH, CMP #### [facility] [address] [address] [address] Bertram Paulino Globulin (S) [Mass/Vol] 3.3 g/dL Normal [facility] Comment on above: Performed By: #### H STROPN, TSH, CMP #### [facility] [address] [address] [address] Bertram Paulino Glucose [Mass/Vol] 121 mg/dL Critically high 74-106 [facility] Comment on above: Performed By: #### H STROPN, TSH, CMP #### [facility] [address] [address] [address] Bertram Paulino Potassium [Moles/Vol] 3.6 mmol/L Normal 3.5-5.1 [facility] Comment on above: Performed By: #### H STROPN, TSH, CMP #### [facility] [address] [address] [address] Bertram Paulino Protein [Mass/Vol] 7.4 g/dL Normal 6.4-8.2 [facility] Comment on above: Performed By: #### H STROPN, TSH, CMP #### [facility] [address] [place] [address] Dr. Bertram Paulino Sodium [Moles/Vol] 137 mmol/L Normal 136-145 [facility] Comment on above: Performed By: #### H STROPN, TSH, CMP #### [facility] [address] [place] [address] Dr. Bertram Paulino Urea nitrogen [Mass/Vol] 9.0 mg/dL Normal 7.0-18.0 [facility] Comment on above: Performed By: #### H STROPN, TSH, CMP #### [facility] [address] [place] [address] Dr. Bertram Paulino Urea nitrogen/Creatinine [Mass ratio] 14.5 mg/mg Normal [facility] Comment on above: Performed By: #### H STROPN, TSH, CMP #### [facility] [address] [place] [address] Dr. Bertram Paulino PROTIMEon 01-23-2023 INR Coag (PPP) [Relative time] {INR} Normal [facility] Comment on above: Performed By: #### C MP, LIPID, TSH #### [facility] [address] [place] [address] Dr. Bertram Paulino INR GUIDELINES SEE BELOW Normal [facility] Comment on above: Result Comment: TYRA RED INR: 2.0 - 3.0 CONDITIONS NOT LISTED BELOW 2.5 - 3.5 FOR PROSTHETIC HEART VALVE REPLACEMENT 2.5 - 3.5 RECURRENT THROMBOSIS Performed By: #### C MP, LIPID, TSH #### [facility] [address] [place] [address] Dr. Bertram Paulino PT Coag (PPP) [Time] 9.6 s Normal 9.0-11.6 [facility] Comment on above: Performed By: #### C MP, LIPID, TSH #### [facility] [address] [place] [address] Dr. Bertram Paulino PTTon 01-23-2023 aPTT Coag (Bld) [Time] s Normal 22.3-36.[address] [facility] Comment on above: Performed By: #### C MP, LIPID, TSH #### [facility] [address] [place] [address] Dr. Bertram Paulino TROPONIN, HIGH SENSITIVITYon 01-23-2023 HSTROP 4.8 pg/mL Normal 4.0-51.[address] [facility] Comment on above: Result Comment: CUT- OFF POINTS HAVE BEEN ESTABLISHED BASED ON THE FOURTH UNIVERSAL DEFINITIONS OF MYOCARDIAL INFARCTION. THE UPPER REFERENCE LIMIT (URL) OF TROPONIN, DEFINED THE 99TH PERCENTILE OF cTnI DISTRIBUTION IN A REFERENCE POPULATION, HAS BEEN CONFIRMED THE DECISION THRESHOLD FOR SD DIAGNOSIS. Performed By: #### C MP, LIPID, TSH #### [facility] [address] [place] [address] Dr. Bertram Paulino TSHon 01-23-2023 TSH 2.684 uIU/mL Normal 0.358-3.740 [facility] Comment on above: Performed By: #### H STROPN, TSH, CMP #### [facility] [address] [place] [address] Dr. Bertram Paulino CBC AUTO DIFFon 01-12-2023 BASO # 0.0 103/ul Normal 0.0-0.1 [facility] Comment on above: Performed By: #### C MP, LIPID, TSH #### [facility] [address] [place] [address] Dr. Bertram Paulino Basophils/100 WBC (Bld) 0.5 % Normal 0.2-2.[address] [facility] Comment on above: Performed By: #### C MP, LIPID, TSH #### [facility] [address] [place] [address] Dr. Bertram Paulino EO # 0.2 103/ul Normal 0.0-0.[address] [facility] Comment on above: Performed By: #### C MP, LIPID, TSH #### [facility] [address] [place] [address] Dr. Bertram Paulino Eosinophils/100 WBC (Bld) 3.6 % Normal 0.9-7.[address] [facility] Comment on above: Performed By: #### C MP, LIPID, TSH #### [facility] [address] [place] [address] Dr. Bertram Paulino Erythrocyte distribution width (RBC) [Ratio] 12.7 % Normal 11.0-15.0 [facility] Comment on above: Performed By: #### C MP, LIPID, TSH #### [facility] [address] [place] [address] Dr. Bertram Paulino Hematocrit (Bld) [Volume fraction] 37.6 % Normal 36.0-48.0 [facility] Comment on above: Performed By: #### C MP, LIPID, TSH #### [facility] [address] [place] [address] Dr. Bertram Paulino Hemoglobin (Bld) [Mass/Vol] 12.7 g/dL Normal 12.0-16.0 [facility] Comment on above: Performed By: #### C MP, LIPID, TSH #### [facility] [address] [place] [address] Dr. Bertram Paulino IG # 0.02 10e3/ul Normal 0.00-0.03 [facility] Comment on above: Performed By: #### C MP, LIPID, TSH #### [facility] [address] [place] [address] Dr. Bertram Paulino IG % 0.3 % Normal 0.0-0.5 [facility] Comment on above: Performed By: #### C MP, LIPID, TSH #### [facility] [address] [place] [address] Dr. Bertram Paulino LYMPH # 2.2 103/ul Normal 1.2-3.8 [facility] Comment on above: Performed By: #### C MP, LIPID, TSH #### [facility] [address] [place] [address] Dr. Bertram Paulino Lymphocytes/100 WBC (Bld) 35.7 % Normal 20.5-60.0 [facility] Comment on above: Performed By: #### C MP, LIPID, TSH #### [facility] [address] [place] [address] Dr. Bertram Paulino MANUAL DIFF REQ NO Normal [facility] Comment on above: Performed By: #### C MP, LIPID, TSH #### [facility] [address] [place] [address] Dr. Bertram Paulino MCH (RBC) [Entitic mass] 29.7 pg Normal 26.7-34.0 [facility] Comment on above: Performed By: #### C MP, LIPID, TSH #### [facility] [address] [place] [address] Dr. Bertram Paulino MCHC (RBC) [Mass/Vol] 33.8 g/dL Normal 29.9-35.[address] [facility] Comment on above: Performed By: #### C MP, LIPID, TSH #### [facility] [address] [place] [address] Dr. Bertram Paulino MCV (RBC) [Entitic vol] 88.1 fL Normal 81.0-99.0 [facility] Comment on above: Performed By: #### C MP, LIPID, TSH #### [facility] [address] [place] [address] Dr. Bertram Paulino MONO # 0.3 103/ul Normal 0.3-0.[address] [facility] Comment on above: Performed By: #### C MP, LIPID, TSH #### [facility] [address] [place] [address] Dr. Bertram Paulino Monocytes/100 WBC (Bld) 5.1 % Normal 1.7-12.[address] [facility] Comment on above: Performed By: #### C MP, LIPID, TSH #### [facility] [address] [place] [address] Dr. Bertram Paulino NEUT # 3.4 103/ul Normal 1.4-6.[address] [facility] Comment on above: Performed By: #### C MP, LIPID, TSH #### [facility] [address] [place] [address] Dr. Bertram Paulino Neutrophils/100 WBC (Bld) 54.8 % Normal 43.0-75.0 [facility] Comment on above: Performed By: #### C MP, LIPID, TSH #### [facility] [address] [address] [address] Bertram Paulino Platelet mean volume (Bld) [Entitic vol] 10.3 fL Normal 9.5-13.5 [facility] Comment on above: Performed By: #### C MP, LIPID, TSH #### [facility] [address] [address] [address] Bertram Paulino PLT 269 103/ul Normal 150-[address] [facility] Comment on above: Performed By: #### C MP, LIPID, TSH #### [facility] [address] [address] [address] Bertram Paulino RBC 4.27 106/ul Normal 4.20-5.[address] [facility] Comment on above: Performed By: #### C MP, LIPID, TSH #### [facility] [address] [place] [address] Dr. Bertram Paulino WBC 6.1 103/ul Normal 4.0-11.[address] [facility] Comment on above: Performed By: #### C MP, LIPID, TSH #### [facility] [address] [place] [address] Dr. Bertram Paulino FREE T4on 01-12-2023 Free T4 [Mass/Vol] 1.00 ng/dL Normal 0.76-1.46 [facility] Comment on above: Performed By: #### C MP, LIPID, TSH #### [facility] [address] [place] [address] Dr. Bertram Paulino GLYCOHEMOGLOBIN A1Con 2022 ADA RECOMMENDATION SEE BELOW Normal [facility] Comment on above: Result Comment: ADA RECOMMENDED LIMIT 4.0 - 6.0 ADA THERAPEUTIC TARGET < 7.0 ACTION SUGGESTED > 7.0 Performed By: #### C MP, LIPID, TSH #### [facility] [address] [place] [address] Dr. Bertram Paulino Glucose [Mass/Vol] 126 mg/dL Normal [facility] Comment on above: Performed By: #### C MP, LIPID, TSH #### [facility] [address] [place] [address] Dr. Bertram Paulino HbA1c (Bld) [Mass fraction] 6.0 % Normal 4.5-6.2 [facility] Comment on above: Performed By: #### C MP, LIPID, TSH #### [facility] [address] [address] [address] Bertram Paulino LIPID PROFILEon 01-12-2023 CHOL-HDL RATIO NORM SEE BELOW Normal [facility] Comment on above: Result Comment: 3.3 - 4.4 LOW RISK 4.4 - 7.1 AVERAGE RISK 7.1 - 11.0 MODERATE RISK >11.0 HIGH RISK Performed By: #### C MP, LIPID, TSH #### [facility] [address] [address] [address] Bertram Paulino Cholesterol [Mass/Vol] 222 mg/dL Critically high <=200 [facility] Comment on above: Performed By: #### C MP, LIPID, TSH #### [facility] [address] [address] [address] Bertram Paulino Cholesterol in HDL [Mass/Vol] 44 mg/dL Normal 40-60 [facility] Comment on above: Performed By: #### C MP, LIPID, TSH #### [facility] [address] [address] [address] Bertram Paulino Cholesterol in LDL [Mass/Vol] 132.4 mg/dL Normal [facility] Comment on above: Performed By: #### C MP, LIPID, TSH #### [facility] [address] [address] [address] Bertram Paulino Cholesterol.total/Ch olesterol in HDL [Mass ratio] 5.0 {ratio} Normal [facility] Comment on above: Performed By: #### C MP, LIPID, TSH #### [facility] [address] [address] [address] Bertram Paulino HDL NORMAL > or = 60 mg/dl - LO W CARDIOVASCULAR RISK <40 mg/dl - HIGH CARDIOVASCULAR RISK Normal [facility] Comment on above: Performed By: #### C MP, LIPID, TSH #### [facility] [address] [address] [address] Bertram Paulino LDL CALC NORMAL SEE BELOW Normal [facility] Comment on above: Result Comment: <100 mg/dl OPTIMAL 100 - 129 mg/dl NEAR OR ABOVE OPTIMAL 130 - 159 mg/dl BORDERLINE HIGH 160 - 189 mg/dl HIGH >190 mg/dl VERY HIGH Performed By: #### C MP, LIPID, TSH #### [facility] [address] [address] [address] Bertram Paulino Triglyceride [Mass/Vol] 228 mg/dL Critically high <=150 [facility] Comment on above: Performed By: #### C MP, LIPID, TSH #### [facility] [address] [address] [address] Bertram Paulino VLDL CALC 45.6 mg/dL Normal [facility] Comment on above: Performed By: #### C MP, LIPID, TSH #### [facility] [address] [address] [address] Bertram Paulino PROF 14(COMP METB)on 023 Albumin [Mass/Vol] 3.8 g/dL Normal 3.4-5.0 [facility] Comment on above: Performed By: #### C MP, LIPID, TSH #### [facility] [address] [address] [address] Bertram Paulino Albumin/Globulin [Mass ratio] 1.2 {ratio} Normal [facility] Comment on above: Performed By: #### C MP, LIPID, TSH #### [facility] [address] [address] [address] Bertram Paulino ALP [Catalytic activity/Vol] 66 U/L Normal 46-[address] [facility] Comment on above: Performed By: #### C MP, LIPID, TSH #### [facility] [address] [address] [address] Bertram Paulino ALT [Catalytic activity/Vol] 45 U/L Normal 14-59 [facility] Comment on above: Performed By: #### C MP, LIPID, TSH #### [facility] [address] [address] [address] Bertram Paulino Anion gap [Moles/Vol] 12.8 mmol/L Normal [facility] Comment on above: Performed By: #### C MP, LIPID, TSH #### [facility] [address] [address] [address] Bertram Paulino AST [Catalytic activity/Vol] 29 U/L Normal 15-37 [facility] Comment on above: Performed By: #### C MP, LIPID, TSH #### [facility] [address] [address] [address] Bertram Paulino Bilirubin [Mass/Vol] 0.4 mg/dL Normal 0.2-1.0 [facility] Comment on above: Performed By: #### C MP, LIPID, TSH #### [facility] [address] [address] [address] Bertram Paulino Calcium [Mass/Vol] 9.1 mg/dL Normal 8.5-10.1 [facility] Comment on above: Performed By: #### C MP, LIPID, TSH #### [facility] [address] [address] [address] Bertram Paulino Chloride [Moles/Vol] 104 mmol/L Normal 98-107 [facility] Comment on above: Performed By: #### C MP, LIPID, TSH #### [facility] [address] [address] [address] Bertram Paulino CO2 [Moles/Vol] 27.2 mmol/L Normal 21.0-32.0 [facility] Comment on above: Performed By: #### C MP, LIPID, TSH #### [facility] [address] [address] [address] Bertram Paulino Creatinine [Mass/Vol] 0.65 mg/dL Normal 0.55-1.02 [facility] Comment on above: Performed By: #### C MP, LIPID, TSH #### [facility] [address] [place] [address] Dr. Bertram Paulino EGFR-AF RUSSIAN >60 Normal >=60 [facility] Comment on above: Performed By: #### C MP, LIPID, TSH #### [facility] [address] [address] [address] Bertram Paulino EGFR-NON AF RUSSIAN >60 Normal >=60 [facility] Comment on above: Performed By: #### C MP, LIPID, TSH #### [facility] [address] [address] [address] Bertram Paulino Globulin (S) [Mass/Vol] 3.1 g/dL Normal [facility] Comment on above: Performed By: #### C MP, LIPID, TSH #### [facility] [address] [address] [address] Bertram Paulino Glucose [Mass/Vol] 123 mg/dL Critically high 74-106 [facility] Comment on above: Performed By: #### C MP, LIPID, TSH #### [facility] [address] [address] [address] Bertram Paulino Potassium [Moles/Vol] 4.0 mmol/L Normal 3.5-5.1 [facility] Comment on above: Performed By: #### C MP, LIPID, TSH #### [facility] [address] [place] [address] Dr. Bertram Paulino Protein [Mass/Vol] 6.9 g/dL Normal 6.4-8.2 [facility] Comment on above: Performed By: #### C MP, LIPID, TSH #### [facility] [address] [place] [address] Dr. Bertram Paulino Sodium [Moles/Vol] 140 mmol/L Normal 136-145 [facility] Comment on above: Performed By: #### C MP, LIPID, TSH #### [facility] [address] [place] [address] Dr. Bertram Paulino Urea nitrogen [Mass/Vol] 6.0 mg/dL Critically low 7.0-18.0 [facility] Comment on above: Performed By: #### C MP, LIPID, TSH #### [facility] [address] [place] [address] Dr. Bertram Paulino Urea nitrogen/Creatinine [Mass ratio] 9.2 mg/mg Normal [facility] Comment on above: Performed By: #### C MP, LIPID, TSH #### [facility] [address] [place] [address] Dr. Bertram Paulino [facility] 2022 SED RATE 23 mm/hr Normal <=30 [facility] Comment on above: Performed By: #### C MP, LIPID, TSH #### [facility] [address] [place], [place] [address] Dr. Bertram Paulino TSHon 01-12-2023 TSH 2.215 uIU/mL Normal 0.358-3.740 [facility] Comment on above: Performed By: #### C KATLIN LIPID, TSH #### [facility] [address] [place], [place] [address] CHEST W CONon [...] PASTOR ESPANA Date: 2022-08-10 06:47 Normal [facility] XR CHEST 2 Von 07-11-2022 [...] by: VANESSA PRESLEY Date: 2022-07-11 07:11 Normal [facility] Progress Noteson 07-05-2022 Certified Orthotist/Pedorthist Authentication Interface Message Text Documentation: Mode: Telephone Patient Patient Work Phone: Patient Cell Preferred phone: [phone] Consent: I confirmed patient understanding of the risks and benefits of telehealth visits and obtained consent to proceed with the telehealth visit. Location of Patient: Home of patient Post Covid Follow Up Telemedicine Visit Note: CC: f/u of [id number] condition Recall: Lu Cancino is a 51 [...] Also has neuropathy Patient still resides near [place], [place] PMH/PSH: Reviewed 07/05/22 Allergies: Per list, [...] Follow up in 3 months Lucía Calderon APRN-[employer] Post Covid Nurse Practitioner Normal [facility] [employer] [facility] CBC AUTO DIFFon 07-01-2022 BASO # 0.0 103/ul Normal 0.0-0.[address] [facility] Comment on above: Performed By: #### C MP, LIPID, TSH #### [facility] [address] [place] [address] Dr. Bertram Paulino Basophils/100 WBC (Bld) 0.2 % Normal 0.2-2.0 [facility] Comment on above: Performed By: #### C MP, LIPID, TSH #### [facility] [address] [place] [address] Dr. Bertram Paulino EO # 0.1 103/ul Normal 0.0-0.7 [facility] Comment on above: Performed By: #### C MP, LIPID, TSH #### [facility] [address] [place] [address] Dr. Bertram Paulino Eosinophils/100 WBC (Bld) 0.7 % Critically low 0.9-7.0 [facility] Comment on above: Performed By: #### C MP, LIPID, TSH #### [facility] [address] [place] [address] Dr. Bertram Paulino Erythrocyte distribution width (RBC) [Ratio] 12.9 % Normal 11.0-15.0 [facility] Comment on above: Performed By: #### C MP, LIPID, TSH #### [facility] [address] [place] [address] Dr. Bertram Paulino Hematocrit (Bld) [Volume fraction] 41.5 % Normal 36.0-48.0 [facility] Comment on above: Performed By: #### C MP, LIPID, TSH #### [facility] [address] [place] [address] Dr. Bertram Paulino Hemoglobin (Bld) [Mass/Vol] 14.1 g/dL Normal 12.0-16.[address] [facility] Comment on above: Performed By: #### C MP, LIPID, TSH #### [facility] [address] [place] [address] Dr. Bertram Paulino IG # 0.03 10e3/ul Normal 0.00-0.03 [facility] Comment on above: Performed By: #### C MP, LIPID, TSH #### [facility] [address] [place] [address] [address] Bertram Paulino IG % 0.3 % Normal 0.0-0.5 [facility] Comment on above: Performed By: #### C MP, LIPID, TSH #### [facility] [address] [place] [address] [address] Bertram Paulino LYMPH # 2.4 103/ul Normal 1.2-3.8 [facility] Comment on above: Performed By: #### C MP, LIPID, TSH #### [facility] [address] [place] [address] [address] Bertram Paulino Lymphocytes/100 WBC (Bld) 27.6 % Normal 20.5-60.0 [facility] Comment on above: Performed By: #### C MP, LIPID, TSH #### [facility] [address] [place] [address] [address] Bertram Paulino MANUAL DIFF REQ NO Normal [facility] Comment on above: Performed By: #### C MP, LIPID, TSH #### [facility] [address] [place] [address] [address] Bertram Paulino MCH (RBC) [Entitic mass] 29.7 pg Normal 26.7-34.0 [facility] Comment on above: Performed By: #### C MP, LIPID, TSH #### [facility] [address] [place] [address] [address] Bertram Paulino MCHC (RBC) [Mass/Vol] 34.0 g/dL Normal 29.9-35.2 [facility] Comment on above: Performed By: #### C MP, LIPID, TSH #### [facility] [address] [place] [address] [address] Bertram Paulino MCV (RBC) [Entitic vol] 87.6 fL Normal 81.0-99.0 [facility] Comment on above: Performed By: #### C MP, LIPID, TSH #### [facility] [address] [place] [address] [address] Bertram Paulino MONO # 0.6 103/ul Normal 0.3-0.8 [facility] Comment on above: Performed By: #### C MP, LIPID, TSH #### [facility] [address] [place] [address] Dr. Bertram Paulino Monocytes/100 WBC (Bld) 6.8 % Normal 1.7-12.0 [facility] Comment on above: Performed By: #### C MP, LIPID, TSH #### [facility] [address] [place] [address] Dr. Bertram Paulino NEUT # 5.6 103/ul Normal 1.4-6.5 [facility] Comment on above: Performed By: #### C MP, LIPID, TSH #### [facility] [address] [place] [address] Dr. Bertram Paulino Neutrophils/100 WBC (Bld) 64.4 % Normal 43.0-75.0 [facility] Comment on above: Performed By: #### C MP, LIPID, TSH #### [facility] [address] [place] [address] Dr. Bertram Paulino Platelet mean volume (Bld) [Entitic vol] 10.0 fL Normal 9.5-13.5 [facility] Comment on above: Performed By: #### C MP, LIPID, TSH #### [facility] [address] [place] [address] Dr. Bertram Paulino PLT 326 103/ul Normal 150-[address] [facility] Comment on above: Performed By: #### C MP, LIPID, TSH #### [facility] [address] [place] [address] Dr. Bertram Paulino RBC 4.74 106/ul Normal 4.20-5.[address] [facility] Comment on above: Performed By: #### C MP, LIPID, TSH #### [facility] [address] [place] [address] Dr. Bertram Paulino WBC 8.7 103/ul Normal 4.0-11.0 [facility] Comment on above: Performed By: #### C MP, LIPID, TSH #### [facility] [address] [place] [address] Dr. Bertram Paulino ER URINE PROFILEon 2 Bilirubin Ql (U) Negative Normal NEGATIVE [facility] Comment on above: Performed By: #### C MP, LIPID, TSH #### [facility] [address] [place] [address] [address] Bertram Paulino Clarity (U) CLEAR Normal CLEAR [facility] Comment on above: Performed By: #### C MP, LIPID, TSH #### [facility] [address] [place] [address] [address] Bertram Paulino Color (U) LT. YELLOW Normal YELLOW [facility] Comment on above: Performed By: #### C MP, LIPID, TSH #### [facility] [address] [place] [address] [address] Bertram ETIENNE A micrscopic examination will be performed if indicated. Normal [facility] Comment on above: Performed By: #### C MP, LIPID, TSH #### [facility] [address] [place] [address] [address] Betrram Paulino Glucose Ql (U) Negative Normal NEGATIVE [facility] Comment on above: Performed By: #### C MP, LIPID, TSH #### [facility] [address] [place] [address] [address] Bertram Paulino Hemoglobin Ql (U) Negative Normal NEGATIVE [facility] Comment on above: Performed By: #### C MP, LIPID, TSH #### [facility] [address] [place] [address] [address] Bertram Paulino Ketones Ql (U) TRACE Abnormal NEGATIVE [facility] Comment on above: Performed By: #### C MP, LIPID, TSH #### [facility] [address] [place] [address] [address] Bertram Paulino LEUKOCYTES Negative Normal NEGATIVE [facility] Comment on above: Performed By: #### C MP, LIPID, TSH #### [facility] [address] [place] [address] Dr. Bertram Paulino Nitrite Ql (U) Negative Normal NEGATIVE [facility] Comment on above: Performed By: #### C MP, LIPID, TSH #### [facility] [address] [place] [address] [address] Bertram Paulino pH (U) 6.0 [pH] Normal 5-9 [facility] Comment on above: Performed By: #### C MP, LIPID, TSH #### [facility] [address] [place] [address] [address] Bertram Paulino SPEC GRAVITY <=1.005 Abnormal 1.005-<=1.025 [facility] Comment on above: Performed By: #### C MP, LIPID, TSH #### [facility] [address] [place] [address] [address] eBrtram Paulino UA PROTEIN Negative Normal NEGATIVE/ TRACE [facility] Comment on above: Performed By: #### C MP, LIPID, TSH #### [facility] [address] [place] [address] [address] Bertram Paulino UR MICRO IND NOT INDICATED Normal [facility] Comment on above: Performed By: #### C MP, LIPID, TSH #### [facility] [address] [place] [address] Dr. Bertram Paulino Urobilinogen Qn (U) 0.2 {Yazmin'U}/dL Normal 0.2 - 1. 0 [facility] Comment on above: Performed By: #### C MP, LIPID, TSH #### [facility] [address] [place] [address] Dr. Bertram Paulino LACTATE/LACTIC ACIDon 2021 Lactate [Moles/Vol] 1.2 mmol/L Normal 0.4-1.9 [facility] Comment on above: Performed By: #### C MP, LIPID, TSH #### [facility] [address] [place] [address] Dr. Bertram Paulino MONOon 07-01-2022 Monocytes (Bld) [#/Vol] Negative Normal NEGATIVE [facility] Comment on above: Performed By: #### M VENUS ####[facility] [id number] [place] [address]Dr. Bertram Paulino PROF 14(COMP METB)on 022 Albumin [Mass/Vol] 4.1 g/dL Normal 3.4-5.0 [facility] Comment on above: Performed By: #### C MP, LIPID, TSH #### [facility] [address] [place] [address] [address] Bertram Paulino Albumin/Globulin [Mass ratio] 1.1 {ratio} Normal [facility] Comment on above: Performed By: #### C MP, LIPID, TSH #### [facility] [address] [place] [address] [address] Bertram Paulino ALP [Catalytic activity/Vol] 57 U/L Normal 46-116 [facility] Comment on above: Performed By: #### C MP, LIPID, TSH #### [facility] [address] [place] [address] [address] Bertram Paulino ALT [Catalytic activity/Vol] 38 U/L Normal 14-59 [facility] Comment on above: Performed By: #### C MP, LIPID, TSH #### [facility] [address] [place] [address] [address] Bertram Paulino Anion gap [Moles/Vol] 13.9 mmol/L Normal [facility] Comment on above: Performed By: #### C MP, LIPID, TSH #### [facility] [address] [place] [address] [address] Bertram Paulino AST [Catalytic activity/Vol] 22 U/L Normal 15-37 [facility] Comment on above: Performed By: #### C MP, LIPID, TSH #### [facility] [address] [place] [address] [address] Bertram Paulino Bilirubin [Mass/Vol] 0.7 mg/dL Normal 0.2-1.0 [facility] Comment on above: Performed By: #### C MP, LIPID, TSH #### [facility] [address] [place] [address] [address] Bertram Paulino Calcium [Mass/Vol] 9.6 mg/dL Normal 8.5-10.1 [facility] Comment on above: Performed By: #### C MP, LIPID, TSH #### [facility] [address] [place] [address] [address] Bertram Paulino Chloride [Moles/Vol] 98 mmol/L Normal 98-107 [facility] Comment on above: Performed By: #### C MP, LIPID, TSH #### [facility] [address] [place] [address] [address] Bertram Paulino CO2 [Moles/Vol] 27.4 mmol/L Normal 21.0-32.0 [facility] Comment on above: Performed By: #### C MP, LIPID, TSH #### [facility] [address] [place] [address] [address] Bertram Paulino Creatinine [Mass/Vol] 0.85 mg/dL Normal 0.55-1.02 [facility] Comment on above: Performed By: #### C MP, LIPID, TSH #### [facility] [address] [place] [address] Dr. Bertram Paulino EGFR-AF RUSSIAN >60 Normal >=60 [facility] Comment on above: Performed By: #### C MP, LIPID, TSH #### [facility] [address] [place] [address] Dr. Bertram Paulino EGFR-NON AF RUSSIAN >60 Normal >=60 [facility] Comment on above: Performed By: #### C MP, LIPID, TSH #### [facility] [address] [place] [address] Dr. Bertram Pualino Globulin (S) [Mass/Vol] 3.6 g/dL Normal [facility] Comment on above: Performed By: #### C MP, LIPID, TSH #### [facility] [address] [place] [address] Dr. Bertram Paulino Glucose [Mass/Vol] 99 mg/dL Normal 74-106 [facility] Comment on above: Performed By: #### C MP, LIPID, TSH #### [facility] [address] [place] [address] Dr. Bertram Paulino Potassium [Moles/Vol] 3.3 mmol/L Critically low 3.5-5.1 [facility] Comment on above: Performed By: #### C MP, LIPID, TSH #### [facility] [address] [place] [address] Dr. Bertram Paulino Protein [Mass/Vol] 7.7 g/dL Normal 6.4-8.2 [facility] Comment on above: Performed By: #### C MP, LIPID, TSH #### [facility] [address] [place] [address] [address] Bertram Paulino Sodium [Moles/Vol] 136 mmol/L Normal 136-145 [facility] Comment on above: Performed By: #### C MP, LIPID, TSH #### [facility] [address] [place] [address] [address] Bertram Paulino Urea nitrogen [Mass/Vol] 13.0 mg/dL Normal 7.0-18.0 [facility] Comment on above: Performed By: #### C MP, LIPID, TSH #### [facility] [address] [place] [address] [address] Bertram Paulino Urea nitrogen/Creatinine [Mass ratio] 15.3 mg/mg Normal [facility] Comment on above: Performed By: #### C MP, LIPID, TSH #### [facility] [address] [place] [address] [address] Bertram Paulino TROPONIN, HIGH SENSITIVITYon 07-01-2022 HSTROP 6.5 pg/mL Normal 4.0-51.[address] [facility] Comment on above: Result Comment: CUT- OFF POINTS HAVE BEEN ESTABLISHED BASED ON THE FOURTH UNIVERSAL DEFINITIONS OF MYOCARDIAL INFARCTION. THE UPPER REFERENCE LIMIT (URL) OF TROPONIN, DEFINED THE 99TH PERCENTILE OF cTnI DISTRIBUTION IN A REFERENCE POPULATION, HAS BEEN CONFIRMED THE DECISION THRESHOLD FOR SD DIAGNOSIS. Performed By: #### T SH, CMP, HSTROPN ####[facility] [id number] [place] [id number]. Bertram Paulino TSHon 07-01-2022 TSH 2.596 uIU/mL Normal 0.358-3.740 [facility] Comment on above: Performed By: #### T SH, CMP, HSTROPN ####[facility] [id number] [place], [place] [id number]. Bertram Paulino STOOL CULTUREon 06-10-2022 Campylobacter Culture Final report Normal [facility] Comment on above: Performed By: #### C MP, LIPID, TSH #### [facility] [address] [place] [address] [address] Bertram Paulino E coli Shiga Toxin EIA Negative Normal Negative [facility] Comment on above: Performed By: #### C MP, LIPID, TSH #### [facility] [address] [place] [address] [address] Bertram Paulino Result 1 Comment Normal [facility] Comment on above: Result Comment: No S almonella or Shigella recovered. Performed By: #### C MP, LIPID, TSH #### [facility] [address] [place] [address] [address] Bertram Paulino Result Comment: No C ampylobacter species isolated. Salmonella/Shigella Screen Final report Normal [facility] Comment on above: Performed By: #### C MP, LIPID, TSH #### [facility] [address] [place] [address] Dr. Bertram Paulino OVA AND PARASITE EXAMINATION on 06-09-2022 Ova + Parasite Exam Final report Normal [facility] Comment on above: Result Comment: Thes e results were obtained using wet preparation(s) and trichrome stained smear. This test does not include testing for Cryptosporidium parvum, Cyclospora, or Microsporidia. Performed By: #### O VAPE ####[facility] [id number] [place] [address]Dr. Bertram Paulino Result 1 Comment Normal [facility] Comment on above: Result Comment: No o va, cysts, or parasites seen. . One negative specimen does not rule out the possibility of a parasitic infection. Performed By: #### O VAPE ####[facility] [id number] [place] [id number]. Bertram Paulino CLOSTRIDIUM DIFFICILE PCRon 06-07-2022 C difficile Toxin Gene KIRT Negative Normal Negative [facility] Comment on above: Performed By: #### C DIFNAA #### [facility] [address] [place] [address] [address] Bertram Paulino OCC BLD IMMUNO SCREENon 05-14 OCCULT BLOOD Negative Normal NEGATIVE [facility] Comment on above: Performed By: #### C MP, LIPID, TSH #### [facility] [address] [place] [address] [address] Bertram Paulino CARDIAC ERASMO 3-6on 2 CK [Catalytic activity/Vol] 109 U/L Normal 26-[address] [facility] Comment on above: Performed By: #### C MP, LIPID, TSH #### [facility] [address] [place] [address] [address] Bertram Paulino CK.MB [Mass/Vol] 1.63 ng/mL Normal <=3.60 [facility] Comment on above: Performed By: #### C MP, LIPID, TSH #### [facility] [address] [place] [address] [address] Bertram Paulino HSTROP 6.0 pg/mL Normal 4.0-51.[address] [facility] Comment on above: Result Comment: CUT- OFF POINTS HAVE BEEN ESTABLISHED BASED ON THE FOURTH UNIVERSAL DEFINITIONS OF MYOCARDIAL INFARCTION. THE UPPER REFERENCE LIMIT (URL) OF TROPONIN, DEFINED THE 99TH PERCENTILE OF cTnI DISTRIBUTION IN A REFERENCE POPULATION, HAS BEEN CONFIRMED THE DECISION THRESHOLD FOR SD DIAGNOSIS. Performed By: #### C MP, LIPID, TSH #### [facility] [address] [place] [address] [address] Bertram Paulino CK [Catalytic activity/Vol] 101 U/L Normal 26-[address] [facility] Comment on above: Performed By: #### C MREP ####[facility] [id number] [place] [address]Dr. Bertram Paulino CK.MB [Mass/Vol] 1.60 ng/mL Normal <=3.60 [facility] Comment on above: Performed By: #### C MREP ####[facility] [id number] [place] [address]Dr. Bertram Paulino HSTROP 5.8 pg/mL Normal 4.0-51.[address] [facility] Comment on above: Result Comment: CUT- OFF POINTS HAVE BEEN ESTABLISHED BASED ON THE FOURTH UNIVERSAL DEFINITIONS OF MYOCARDIAL INFARCTION. THE UPPER REFERENCE LIMIT (URL) OF TROPONIN, DEFINED THE 99TH PERCENTILE OF cTnI DISTRIBUTION IN A REFERENCE POPULATION, HAS BEEN CONFIRMED THE DECISION THRESHOLD FOR SD DIAGNOSIS. Performed By: #### C MREP ####[facility] [address] [place] [address]Dr. Bertram Paulino CBC AUTO DIFFon 05-15-2022 BASO # 0.1 103/ul Normal 0.0-0.1 [facility] Comment on above: Performed By: #### C MP, LIPID, TSH #### [facility] [address] [address] [address] Bertram Paulino Basophils/100 WBC (Bld) 0.8 % Normal 0.2-2.0 [facility] Comment on above: Performed By: #### C MP, LIPID, TSH #### [facility] [address] [place] [address] Dr. Bertram Paulino EO # 0.2 103/ul Normal 0.0-0.7 [facility] Comment on above: Performed By: #### C MP, LIPID, TSH #### [facility] [address] [place] [address] Dr. Bertram Paulino Eosinophils/100 WBC (Bld) 2.9 % Normal 0.9-7.0 [facility] Comment on above: Performed By: #### C MP, LIPID, TSH #### [facility] [address] [place] [address] Dr. Bertram Paulino Erythrocyte distribution width (RBC) [Ratio] 13.5 % Normal 11.0-15.0 [facility] Comment on above: Performed By: #### C MP, LIPID, TSH #### [facility] [address] [place] [address] Dr. Bertram Paulino Hematocrit (Bld) [Volume fraction] 34.4 % Critically low 36.0-48.0 [facility] Comment on above: Performed By: #### C MP, LIPID, TSH #### [facility] [address] [place] [address] Dr. Bertram Paulino Hemoglobin (Bld) [Mass/Vol] 11.8 g/dL Critically low 12.0-16.0 [facility] Comment on above: Performed By: #### C MP, LIPID, TSH #### [facility] [address] [place] [address] Dr. Bertram Paulino IG # 0.03 10e3/ul Normal 0.00-0.03 [facility] Comment on above: Performed By: #### C MP, LIPID, TSH #### [facility] [address] [place] [address] Dr. Bertram Paulino IG % 0.5 % Normal 0.0-0.5 [facility] Comment on above: Performed By: #### C MP, LIPID, TSH #### [facility] [address] [place] [address] Dr. Bertram Paulino LYMPH # 2.7 103/ul Normal 1.2-3.[address] [facility] Comment on above: Performed By: #### C MP, LIPID, TSH #### [facility] [address] [place] [address] Dr. Bertram Paulino Lymphocytes/100 WBC (Bld) 41.3 % Normal 20.5-60.0 [facility] Comment on above: Performed By: #### C MP, LIPID, TSH #### [facility] [address] [place] [address] Dr. Bertram Paulino MANUAL DIFF REQ NO Normal [facility] Comment on above: Performed By: #### C MP, LIPID, TSH #### [facility] [address] [place] [address] Dr. Bertram Paulino MCH (RBC) [Entitic mass] 29.9 pg Normal 26.7-34.0 [facility] Comment on above: Performed By: #### C MP, LIPID, TSH #### [facility] [address] [place] [address] Dr. Bertram Paulino MCHC (RBC) [Mass/Vol] 34.3 g/dL Normal 29.9-35.[address] [facility] Comment on above: Performed By: #### C MP, LIPID, TSH #### [facility] [address] [place] [address] Dr. Bertram Paulino MCV (RBC) [Entitic vol] 87.3 fL Normal 81.0-99.[address] [facility] Comment on above: Performed By: #### C MP, LIPID, TSH #### [facility] [address] [address] [address] Bertram Paulino MONO # 0.6 103/ul Normal 0.3-0.8 [facility] Comment on above: Performed By: #### C MP, LIPID, TSH #### [facility] [address] [address] [address] Bertram Paulino Monocytes/100 WBC (Bld) 9.6 % Normal 1.7-12.0 [facility] Comment on above: Performed By: #### C MP, LIPID, TSH #### [facility] [address] [place] [address] Dr. Betrram Paulino NEUT # 2.9 103/ul Normal 1.4-6.5 [facility] Comment on above: Performed By: #### C MP, LIPID, TSH #### [facility] [address] [place] [address] Dr. Bertram Paulino Neutrophils/100 WBC (Bld) 44.9 % Normal 43.0-75.0 [facility] Comment on above: Performed By: #### C MP, LIPID, TSH #### [facility] [address] [address] [address] Bertram Paulino Platelet mean volume (Bld) [Entitic vol] 11.0 fL Normal 9.5-13.5 [facility] Comment on above: Performed By: #### C MP, LIPID, TSH #### [facility] [address] [place] [address] Dr. Bertram Paulino PLT 281 103/ul Normal 150-[address] [facility] Comment on above: Performed By: #### C MP, LIPID, TSH #### [facility] [address] [place] [address] Dr. Bertram Paulino RBC 3.94 106/ul Critically low 4.20-5.40 [facility] Comment on above: Performed By: #### C MP, LIPID, TSH #### [facility] [address] [place] [address] Dr. Bertram Paulino WBC 6.5 103/ul Normal 4.0-11.0 [facility] Comment on above: Performed By: #### C MP, LIPID, TSH #### [facility] [address] [address] [address] Bertram Paulino CTA CHEST WO W [...] MELANI BETANCOURT Date: 2022-05-14 23:01 [address] [facility] Covid-19 PCR (CVDTB)on SARS-CoV-2 (COVID-19) RNA KIRT+probe Ql (Unsp spec) Not detected Normal NOT DETECTED [facility] Comment on above: Result Comment: [...] for this test is supported by the Vice President Quality Improvement of Health and Human Service's declaration that [...] By: #### C MP, LIPID, TSH #### [facility] [address] [place] [address] Dr. Bertram Paulino PROF 14(COMP METB)on 022 Albumin [Mass/Vol] 3.3 g/dL Critically low 3.4-5.0 [facility] Comment on above: Performed By: #### C MP, LIPID, TSH #### [facility] [address] [place] [address] Dr. Bertram Paulino Albumin/Globulin [Mass ratio] 1.1 {ratio} Normal [facility] Comment on above: Performed By: #### C MP, LIPID, TSH #### [facility] [address] [place] [address] Dr. Bertram Paulino ALP [Catalytic activity/Vol] 47 U/L Normal 46-116 [facility] Comment on above: Performed By: #### C MP, LIPID, TSH #### [facility] [address] [place] [address] Dr. Bertram Paulino ALT [Catalytic activity/Vol] 42 U/L Normal 14-59 [facility] Comment on above: Performed By: #### C MP, LIPID, TSH #### [facility] [address] [place] [address] Dr. Bertram Paulino Anion gap [Moles/Vol] 14.3 mmol/L Normal [facility] Comment on above: Performed By: #### C MP, LIPID, TSH #### [facility] [address] [place] [address] Dr. Bertram Paulino AST [Catalytic activity/Vol] 20 U/L Normal 15-37 [facility] Comment on above: Performed By: #### C MP, LIPID, TSH #### [facility] [address] [address] [address] Bertram Paulino Bilirubin [Mass/Vol] 0.3 mg/dL Normal 0.2-1.0 [facility] Comment on above: Performed By: #### C MP, LIPID, TSH #### [facility] [address] [place] [address] Dr. Bertram Paulino Calcium [Mass/Vol] 9.0 mg/dL Normal 8.5-10.1 [facility] Comment on above: Performed By: #### C MP, LIPID, TSH #### [facility] [address] [address] [address] Bertram Paulino Chloride [Moles/Vol] 105 mmol/L Normal 98-107 [facility] Comment on above: Performed By: #### C MP, LIPID, TSH #### [facility] [address] [place] [address] Dr. Bertram Paulino CO2 [Moles/Vol] 26.5 mmol/L Normal 21.0-32.0 [facility] Comment on above: Performed By: #### C MP, LIPID, TSH #### [facility] [address] [place] [address] Dr. Bertram Paulino Creatinine [Mass/Vol] 0.77 mg/dL Normal 0.55-1.02 [facility] Comment on above: Performed By: #### C MP, LIPID, TSH #### [facility] [address] [place] [address] Dr. Bertram Paulino EGFR-AF RUSSIAN >60 Normal >=60 [facility] Comment on above: Performed By: #### C MP, LIPID, TSH #### [facility] [address] [place] [address] Dr. Bertram Paulino EGFR-NON AF RUSSIAN >60 Normal >=60 [facility] Comment on above: Performed By: #### C MP, LIPID, TSH #### [facility] [address] [place] [address] Dr. Bertram Paulino Globulin (S) [Mass/Vol] 3.1 g/dL Normal [facility] Comment on above: Performed By: #### C MP, LIPID, TSH #### [facility] [address] [address] [address] Bertram Paulino Glucose [Mass/Vol] 99 mg/dL Normal 74-106 [facility] Comment on above: Performed By: #### C MP, LIPID, TSH #### [facility] [address] [place] [address] Dr. Bertram Paulino Potassium [Moles/Vol] 3.8 mmol/L Normal 3.5-5.1 [facility] Comment on above: Performed By: #### C MP, LIPID, TSH #### [facility] [address] [place] [address] Dr. Bertram Paulino Protein [Mass/Vol] 6.4 g/dL Normal 6.4-8.2 [facility] Comment on above: Performed By: #### C MP, LIPID, TSH #### [facility] [address] [place] [address] Dr. Bertram Paulino Sodium [Moles/Vol] 142 mmol/L Normal 136-145 [facility] Comment on above: Performed By: #### C MP, LIPID, TSH #### [facility] [address] [place] [address] Dr. Bertram Paulino Urea nitrogen [Mass/Vol] 8.0 mg/dL Normal 7.0-18.0 [facility] Comment on above: Performed By: #### C MP, LIPID, TSH #### [facility] [address] [place] [address] Dr. Bertram Paulino Urea nitrogen/Creatinine [Mass ratio] 10.4 mg/mg Normal [facility] Comment on above: Performed By: #### C MP, LIPID, TSH #### [facility] [address] [place] [address] Dr. Bertram Paulino UA (CLEAN/CATCH) BORING MACHINE OPERATOR/MICRO I F IND.on 05-15-2022 Bilirubin Ql (U) Negative Normal NEGATIVE [facility] Comment on above: Performed By: #### C MP, LIPID, TSH #### [facility] [address] [place] [address] Dr. Bertram Paulino Clarity (U) SL CLOUDY Abnormal CLEAR [facility] Comment on above: Performed By: #### C MP, LIPID, TSH #### [facility] [address] [address] [address] Bertram Paulino Color (U) LT. YELLOW Normal YELLOW [facility] Comment on above: Performed By: #### C MP, LIPID, TSH #### [facility] [address] [address] [address] Bertram Paulino Glucose Ql (U) Negative Normal NEGATIVE [facility] Comment on above: Performed By: #### C MP, LIPID, TSH #### [facility] [address] [address] [address] Bertram Paulino Hemoglobin Ql (U) Negative Normal NEGATIVE [facility] Comment on above: Performed By: #### C MP, LIPID, TSH #### [facility] [address] [place] [address] Dr. Bertram Paulino Ketones Ql (U) Negative Normal NEGATIVE [facility] Comment on above: Performed By: #### C MP, LIPID, TSH #### [facility] [address] [address] [address] Bertram Paulino LEUKOCYTES Negative Normal NEGATIVE [facility] Comment on above: Performed By: #### C MP, LIPID, TSH #### [facility] [address] [place] [address] Dr. Bertram Paulino Nitrite Ql (U) Negative Normal NEGATIVE [facility] Comment on above: Performed By: #### C MP, LIPID, TSH #### [facility] [address] [address] [address] Bertram Paulino pH (U) 5.5 [pH] Normal 5-9 [facility] Comment on above: Performed By: #### C MP, LIPID, TSH #### [facility] [address] [place] [address] Dr. Bertram Paulino SPEC GRAVITY 1.010 Normal 1.005-<=1.025 [facility] Comment on above: Performed By: #### C MP, LIPID, TSH #### [facility] [address] [address] [address] Bertram Paulino UA PROTEIN Negative Normal NEGATIVE/ TRACE [facility] Comment on above: Performed By: #### C MP, LIPID, TSH #### [facility] [address] [address] [address] Bertram Paulino UR MICRO IND NOT INDICATED Normal [facility] Comment on above: Performed By: #### C MP, LIPID, TSH #### [facility] [address] [address] [address] Bertram Paulino Urobilinogen Qn (U) 0.2 {Yazmin'U}/dL Normal 0.2 - 1. [address] [facility] Comment on above: Performed By: #### C MP, LIPID, TSH #### [facility] [address] [place] [address] Dr. Bertram Paulino CARDIAC ERASMO ADMITon 022 CK [Catalytic activity/Vol] 117 U/L Normal 26-[address] [facility] Comment on above: Performed By: #### C MP, LIPID, TSH #### [facility] [address] [place] [address] Dr. Bertram Paulino CK.MB [Mass/Vol] 2.08 ng/mL Normal <=3.60 [facility] Comment on above: Performed By: #### C MP, LIPID, TSH #### [facility] [address] [place] [address] Dr. Bertram Paulino HSTROP 4.7 pg/mL Normal 4.0-51.[address] [facility] Comment on above: Result Comment: CUT- OFF POINTS HAVE BEEN ESTABLISHED BASED ON THE FOURTH UNIVERSAL DEFINITIONS OF MYOCARDIAL INFARCTION. THE UPPER REFERENCE LIMIT (URL) OF TROPONIN, DEFINED THE 99TH PERCENTILE OF cTnI DISTRIBUTION IN A REFERENCE POPULATION, HAS BEEN CONFIRMED THE DECISION THRESHOLD FOR SD DIAGNOSIS. Performed By: #### C MP, LIPID, TSH #### [facility] [address] [place] [address] Dr. Bertram Paulino JEAN-PIERRE 28 ng/mL Normal 9-[address] [facility] Comment on above: Performed By: #### C MP, LIPID, TSH #### [facility] [address] [place] [address] Dr. Bertram Paulino CBC AUTO DIFFon 05-14-2022 BASO # 0.0 103/ul Normal 0.0-0.1 [facility] Comment on above: Performed By: #### C MP, LIPID, TSH #### [facility] [address] [place] [address] Dr. Bertram Paulino Basophils/100 WBC (Bld) 0.5 % Normal 0.2-2.0 [facility] Comment on above: Performed By: #### C MP, LIPID, TSH #### [facility] [address] [place] [address] Dr. Bertram Paulino EO # 0.1 103/ul Normal 0.0-0.7 [facility] Comment on above: Performed By: #### C MP, LIPID, TSH #### [facility] [address] [place] [address] Dr. Bertram Paulino Eosinophils/100 WBC (Bld) 1.6 % Normal 0.9-7.0 [facility] Comment on above: Performed By: #### C MP, LIPID, TSH #### [facility] [address] [place] [address] Dr. Bertram Paulino Erythrocyte distribution width (RBC) [Ratio] 13.4 % Normal 11.0-15.0 [facility] Comment on above: Performed By: #### C MP, LIPID, TSH #### [facility] [address] [place] [address] Dr. Bertram Paulino Hematocrit (Bld) [Volume fraction] 37.4 % Normal 36.0-48.0 [facility] Comment on above: Performed By: #### C MP, LIPID, TSH #### [facility] [address] [place] [address] Dr. Bertram Paulino Hemoglobin (Bld) [Mass/Vol] 12.3 g/dL Normal 12.0-16.0 [facility] Comment on above: Performed By: #### C MP, LIPID, TSH #### [facility] [address] [place] [address] Dr. Bertram Paulino IG # 0.02 10e3/ul Normal 0.00-0.03 [facility] Comment on above: Performed By: #### C MP, LIPID, TSH #### [facility] [address] [place] [address] Dr. Bertram Paulino IG % 0.3 % Normal 0.0-0.5 [facility] Comment on above: Performed By: #### C MP, LIPID, TSH #### [facility] [address] [place] [address] Dr. Bertram Paulino LYMPH # 2.6 103/ul Normal 1.2-3.8 [facility] Comment on above: Performed By: #### C MP, LIPID, TSH #### [facility] [address] [place] [address] Dr. Bertram Paulino Lymphocytes/100 WBC (Bld) 34.5 % Normal 20.5-60.0 [facility] Comment on above: Performed By: #### C MP, LIPID, TSH #### [facility] [address] [place] [address] Dr. Bertram Paulino MANUAL DIFF REQ NO Normal [facility] Comment on above: Performed By: #### C MP, LIPID, TSH #### [facility] [address] [place] [address] Dr. Bertram Paulino MCH (RBC) [Entitic mass] 29.4 pg Normal 26.7-34.0 [facility] Comment on above: Performed By: #### C MP, LIPID, TSH #### [facility] [address] [place] [address] Dr. Bertram Paulino MCHC (RBC) [Mass/Vol] 32.9 g/dL Normal 29.9-35.2 [facility] Comment on above: Performed By: #### C MP, LIPID, TSH #### [facility] [address] [place] [address] Dr. Bertram Paulino MCV (RBC) [Entitic vol] 89.3 fL Normal 81.0-99.0 [facility] Comment on above: Performed By: #### C MP, LIPID, TSH #### [facility] [address] [place] [address] Dr. Bertram Paulino MONO # 0.5 103/ul Normal 0.3-0.[address] [facility] Comment on above: Performed By: #### C MP, LIPID, TSH #### [facility] [address] [address] [address] Bertram Paulino Monocytes/100 WBC (Bld) 6.3 % Normal 1.7-12.0 [facility] Comment on above: Performed By: #### C MP, LIPID, TSH #### [facility] [address] [address] [address] Bertram Paulino NEUT # 4.3 103/ul Normal 1.4-6.[address] [facility] Comment on above: Performed By: #### C MP, LIPID, TSH #### [facility] [address] [place] [address] Dr. Bertram Paulino Neutrophils/100 WBC (Bld) 56.8 % Normal 43.0-75.[address] [facility] Comment on above: Performed By: #### C MP, LIPID, TSH #### [facility] [address] [address] [address] Bertram Paulino Platelet mean volume (Bld) [Entitic vol] 10.7 fL Normal 9.5-13.[address] [facility] Comment on above: Performed By: #### C MP, LIPID, TSH #### [facility] [address] [place] [address] Dr. Bertram Paulino PLT 295 103/ul Normal 150-[address] [facility] Comment on above: Performed By: #### C MP, LIPID, TSH #### [facility] [address] [address] [address] Bertram Paulino RBC 4.19 106/ul Critically low 4.20-5.40 [facility] Comment on above: Performed By: #### C MP, LIPID, TSH #### [facility] [address] [address] [address] Bertram Paulino WBC 7.6 103/ul Normal 4.0-11.[address] [facility] Comment on above: Performed By: #### C MP, LIPID, TSH #### [facility] [address] [place] [address] Dr. Bertram Paulino D-DIMERon 05-14-2022 D-DIMER 0.65 mg/L FEU Critically high <=0.59 [facility] Comment on above: Performed By: #### D DIM #### [facility] [address] [place] [address] Dr. Bertram Paulino D-DIMER COMMENTS SEE BELOW Normal [facility] Comment on above: Result Comment: Incr eases [...] hospitalization. Performed By: #### D DIM #### [facility] [address] [place] [address] Dr. Bertram Paulino PROF CHEM 8 (BAS METB)on Anion gap [Moles/Vol] 10.7 mmol/L Normal [facility] Comment on above: Performed By: #### C MP, LIPID, TSH #### [facility] [address] [place] [address] Dr. Bertram Paulino Calcium [Mass/Vol] 9.6 mg/dL Normal 8.5-10.1 [facility] Comment on above: Performed By: #### C MP, LIPID, TSH #### [facility] [address] [place] [address] Dr. Bertram Paulino Chloride [Moles/Vol] 102 mmol/L Normal 98-[address] [facility] Comment on above: Performed By: #### C MP, LIPID, TSH #### [facility] [address] [place] [address] Dr. Bertram Paulino CO2 [Moles/Vol] 28.8 mmol/L Normal 21.0-32.0 [facility] Comment on above: Performed By: #### C MP, LIPID, TSH #### [facility] [address] [address] [address] Bertram Paulino Creatinine [Mass/Vol] 0.83 mg/dL Normal 0.55-1.02 [facility] Comment on above: Performed By: #### C MP, LIPID, TSH #### [facility] [address] [address] [address] Bertram Paulino EGFR-AF RUSSIAN >60 Normal >=60 [facility] Comment on above: Performed By: #### C MP, LIPID, TSH #### [facility] [address] [address] [address] Bertram Paulino EGFR-NON AF RUSSIAN >60 Normal >=60 [facility] Comment on above: Performed By: #### C MP, LIPID, TSH #### [facility] [address] [address] [address] Bertram Paulino Glucose [Mass/Vol] 128 mg/dL Critically high 74-106 [facility] Comment on above: Performed By: #### C MP, LIPID, TSH #### [facility] [address] [address] [address] Bertram Paulino Potassium [Moles/Vol] 3.5 mmol/L Normal 3.5-5.1 [facility] Comment on above: Performed By: #### C MP, LIPID, TSH #### [facility] [address] [address] [address] Bertram Paulino Sodium [Moles/Vol] 138 mmol/L Normal 136-145 [facility] Comment on above: Performed By: #### C MP, LIPID, TSH #### [facility] [address] [address] [address] Bertram Paulino Urea nitrogen [Mass/Vol] 8.0 mg/dL Normal 7.0-18.0 [facility] Comment on above: Performed By: #### C MP, LIPID, TSH #### [facility] [address] [address] [address] Bertram Paulino Urea nitrogen/Creatinine [Mass ratio] 9.6 mg/mg Normal [facility] Comment on above: Performed By: #### C MP, LIPID, TSH #### [facility] [address] [place], [place] [address] Dr. Bertram Paulino XR CHEST 1 Von [...] VANESSA MARTINEZ Date: 2022-05-14 19:51 Normal [address] [facility] CARDIAC ERASMO ADMITon 022 CK [Catalytic activity/Vol] 45 U/L Normal 26-[address] [facility] Comment on above: Performed By: #### C MADM, TSH, CMP ####[facility] [id number] [id number][address] Bertram Paulino CK.MB [Mass/Vol] ng/mL Normal <=3.60 [facility] Comment on above: Performed By: #### C MADM, TSH, CMP ####[facility] [id number] [id number] Bertram Paulino HSTROP 5.1 pg/mL Normal 4.0-51.[address] [facility] Comment on above: Result Comment: CUT- OFF POINTS HAVE BEEN ESTABLISHED BASED ON THE FOURTH UNIVERSAL DEFINITIONS OF MYOCARDIAL INFARCTION. THE UPPER REFERENCE LIMIT (URL) OF TROPONIN, DEFINED THE 99TH PERCENTILE OF cTnI DISTRIBUTION IN A REFERENCE POPULATION, HAS BEEN CONFIRMED THE DECISION THRESHOLD FOR SD DIAGNOSIS. Performed By: #### C MADM, TSH, CMP ####[facility] [id number] [id number] Paulino JEAN-PIERRE 36 ng/mL Normal 9-[address] [facility] Comment on above: Performed By: #### C MADM, TSH, CMP ####[facility] [id number] [id number] Paulino CBC AUTO DIFFon 05-04-2022 BASO # 0.0 103/ul Normal 0.0-0.[address] [facility] Comment on above: Performed By: #### C BC #### [facility] [address] [address] [address] Bertram Paulino Basophils/100 WBC (Bld) 0.6 % Normal 0.2-2.0 [facility] Comment on above: Performed By: #### C BC #### [facility] [address] [address] [address] Bertram Paulino EO # 0.1 103/ul Normal 0.0-0.[address] [facility] Comment on above: Performed By: #### C BC #### [facility] [address] [place] [address] Dr. Bertram Paulino Eosinophils/100 WBC (Bld) 1.7 % Normal 0.9-7.0 [facility] Comment on above: Performed By: #### C BC #### [facility] [address] [place] [address] Dr. Bertram Paulino Erythrocyte distribution width (RBC) [Ratio] 13.2 % Normal 11.0-15.0 [facility] Comment on above: Performed By: #### C BC #### [facility] [address] [place] [address] Dr. Bertram Paulino Hematocrit (Bld) [Volume fraction] 40.9 % Normal 36.0-48.0 [facility] Comment on above: Performed By: #### C BC #### [facility] [address] [place] [address] Dr. Bertram Paulino Hemoglobin (Bld) [Mass/Vol] 13.6 g/dL Normal 12.0-16.0 [facility] Comment on above: Performed By: #### C BC #### [facility] [address] [place] [address] Dr. Bertram Paulino IG # 0.02 10e3/ul Normal 0.00-0.[address] [facility] Comment on above: Performed By: #### C BC #### [facility] [address] [place] [address] Dr. Bertram Paulino IG % 0.3 % Normal 0.0-0.[address] [facility] Comment on above: Performed By: #### C BC #### [facility] [address] [place] [address] Dr. Bertram Paulino LYMPH # 2.5 103/ul Normal 1.2-3.8 [facility] Comment on above: Performed By: #### C BC #### [facility] [address] [place] [address] Dr. Bertram Paulino Lymphocytes/100 WBC (Bld) 36.0 % Normal 20.5-60.0 [facility] Comment on above: Performed By: #### C BC #### [facility] [address] [place] [address] Dr. Bertram Paulino MANUAL DIFF REQ NO Normal [facility] Comment on above: Performed By: #### C BC #### [facility] [address] [place] [address] Dr. Bertram Paulino MCH (RBC) [Entitic mass] 29.0 pg Normal 26.7-34.0 [facility] Comment on above: Performed By: #### C BC #### [facility] [address] [place] [address] Dr. Bertram Paulino MCHC (RBC) [Mass/Vol] 33.3 g/dL Normal 29.9-35.2 [facility] Comment on above: Performed By: #### C BC #### [facility] [address] [place] [address] Dr. Bertram Paulino MCV (RBC) [Entitic vol] 87.2 fL Normal 81.0-99.0 [facility] Comment on above: Performed By: #### C BC #### [facility] [address] [place] [address] Dr. Bertram Paulino MONO # 0.5 103/ul Normal 0.3-0.[address] [facility] Comment on above: Performed By: #### C BC #### [facility] [address] [place] [address] Dr. Bertram Paulino Monocytes/100 WBC (Bld) 6.9 % Normal 1.7-12.0 [facility] Comment on above: Performed By: #### C BC #### [facility] [address] [place] [address] Dr. Bertram Paulino NEUT # 3.8 103/ul Normal 1.4-6.[address] [facility] Comment on above: Performed By: #### C BC #### [facility] [address] [place] [address] Dr. Bertram Paulino Neutrophils/100 WBC (Bld) 54.5 % Normal 43.0-75.[address] [facility] Comment on above: Performed By: #### C BC #### [facility] [address] [place] [address] Dr. Bertram Paulino Platelet mean volume (Bld) [Entitic vol] 10.3 fL Normal 9.5-13.[address] [facility] Comment on above: Performed By: #### C BC #### [facility] [address] [place] [address] Dr. Bertram Paulino PLT 316 103/ul Normal 150-[address] [facility] Comment on above: Performed By: #### C BC #### [facility] [address] [place] [address] Dr. Bertram Paulino RBC 4.69 106/ul Normal 4.20-5.[address] [facility] Comment on above: Performed By: #### C BC #### [facility] [address] [place] [address] Dr. eBrtram Paulino WBC 6.9 103/ul Normal 4.0-11.[address] [facility] Comment on above: Performed By: #### C BC #### [facility] [address] [place] [address] Dr. Bertram Paulino [facility] SARS-CoV-2 (COVID-19) RNA KIRT+probe Ql (Unsp spec) Not detected Normal NOT DETECTED [facility] Comment on above: Result Comment: [...] for this test is supported by the [place] of Health and Human Service's declaration that [...] By: #### C MP, LIPID, TSH #### [facility] [address] [place] [address] Dr. Bertram Paulino ER URINE PROFILEon 2 Bilirubin Ql (U) Negative Normal NEGATIVE [facility] Comment on above: Performed By: #### C MP, LIPID, TSH #### [facility] [address] [place] [address] Dr. Bertram Paulino Clarity (U) CLEAR Normal CLEAR [facility] Comment on above: Performed By: #### C MP, LIPID, TSH #### [facility] [address] [place] [address] Dr. Bertram Paulino Color (U) YELLOW Normal YELLOW [facility] Comment on above: Performed By: #### C MP, LIPID, TSH #### [facility] [address] [place] [address] Dr. Bertram Paulino ERUAHD A micrscopic examination will be performed if indicated. Normal [facility] Comment on above: Performed By: #### C MP, LIPID, TSH #### [facility] [address] [place] [address] Dr. Bertram Paulino Glucose Ql (U) Negative Normal NEGATIVE [facility] Comment on above: Performed By: #### C MP, LIPID, TSH #### [facility] [address] [place] [address] Dr. Bertram Paulino Hemoglobin Ql (U) Negative Normal NEGATIVE [facility] Comment on above: Performed By: #### C MP, LIPID, TSH #### [facility] [address] [place] [address] Dr. Bertram Paulino Ketones Ql (U) TRACE Abnormal NEGATIVE [facility] Comment on above: Performed By: #### C MP, LIPID, TSH #### [facility] [address] [address] [address] Bertram Paulino LEUKOCYTES Negative Normal NEGATIVE [facility] Comment on above: Performed By: #### C MP, LIPID, TSH #### [facility] [address] [address] [address] Bertram Paulino Nitrite Ql (U) Negative Normal NEGATIVE [facility] Comment on above: Performed By: #### C MP, LIPID, TSH #### [facility] [address] [address] [address] Bertram Paulino pH (U) 7.5 [pH] Normal 5-9 [facility] Comment on above: Performed By: #### C MP, LIPID, TSH #### [facility] [address] [place] [address] Dr. Bertram Paulino SPEC GRAVITY 1.015 Normal 1.005-<=1.025 [facility] Comment on above: Performed By: #### C MP, LIPID, TSH #### [facility] [address] [place] [address] Dr. Bertram Paulino UA PROTEIN TRACE Normal NEGATIVE/ TRACE [facility] Comment on above: Performed By: #### C MP, LIPID, TSH #### [facility] [address] [place] [address] Dr. Bertram Paulino UR MICRO IND NOT INDICATED Normal [facility] Comment on above: Performed By: #### C MP, LIPID, TSH #### [facility] [address] [place] [address] Dr. Bertram Paulino Urobilinogen Qn (U) 0.2 {Yazmin'U}/dL Normal 0.2 - 1. 0 [facility] Comment on above: Performed By: #### C MP, LIPID, TSH #### [facility] [address] [place] [address] Dr. Bertram Paulino PROF 14(COMP METB)on 022 Albumin [Mass/Vol] 3.7 g/dL Normal 3.4-5.0 [facility] Comment on above: Performed By: #### C MADKim, TSH, CMP ####[facility] [address] [address]Dr. Bertram Jefferson Albumin/Globulin [Mass ratio] 1.0 {ratio} Normal [facility] Comment on above: Performed By: #### C MADM, TSH, CMP ####[facility] [address] [address]Dr. Bertram Jefferson ALP [Catalytic activity/Vol] 59 U/L Normal 46-[address] [facility] Comment on above: Performed By: #### C MADKim TSH, CMP ####[facility] [address] [address]Dr. Bertram Paulino ALT [Catalytic activity/Vol] 55 U/L Normal 14-[address] [facility] Comment on above: Performed By: #### C MADM TSH, CMP ####[facility] [address] [address]Dr. Bertram Paulino Anion gap [Moles/Vol] 13.6 mmol/L Normal [facility] Comment on above: Performed By: #### C JASMYN TSH, CMP ####[facility] [address] [address]Dr. Bertram Paulino AST [Catalytic activity/Vol] 33 U/L Normal 15-37 [facility] Comment on above: Performed By: #### C MADM, TSH, CMP ####[facility] [address] [address]Dr. Bertram Paulino Bilirubin [Mass/Vol] 0.7 mg/dL Normal 0.2-1.[address] [facility] Comment on above: Performed By: #### C MADM, TSH, CMP ####[facility] [address] [address]Dr. Bertram Paulino Calcium [Mass/Vol] 9.3 mg/dL Normal 8.5-10.1 [facility] Comment on above: Performed By: #### C MADM, TSH, CMP ####[facility] [address] [id number]. Bertram Paulino Chloride [Moles/Vol] 102 mmol/L Normal 98-[address] [facility] Comment on above: Performed By: #### C MADM, TSH, CMP ####[facility] [address] [address]Dr. Bertram Paulino CO2 [Moles/Vol] 28.1 mmol/L Normal 21.0-32.0 [facility] Comment on above: Performed By: #### C MADM, TSH, CMP ####[facility] [address] [address]Dr. Bertram Paulino Creatinine [Mass/Vol] 0.80 mg/dL Normal 0.55-1.02 [facility] Comment on above: Performed By: #### C MADM, TSH, CMP ####[facility] [address] [place], [place] [address]Dr. Bertram Paulino EGFR-AF RUSSIAN >60 Normal >=60 [facility] Comment on above: Performed By: #### C MADM, TSH, CMP ####[facility] [address] [place], [place] [address]Dr. Bertram Paulino EGFR-NON AF RUSSIAN >60 Normal >=60 [facility] Comment on above: Performed By: #### C MADM, TSH, CMP ####[facility] [address] [address]Dr. Bertram Paulino Globulin (S) [Mass/Vol] 3.7 g/dL Normal [facility] Comment on above: Performed By: #### C MADM, TSH, CMP ####[facility] [address] [address]Dr. Bertram Paulino Glucose [Mass/Vol] 104 mg/dL Normal 74-106 [facility] Comment on above: Performed By: #### C MADM, TSH, CMP ####[facility] [address] [address]Dr. Bertram Paulino Potassium [Moles/Vol] 3.7 mmol/L Normal 3.5-5.[address] [facility] Comment on above: Performed By: #### C MADM, TSH, CMP ####[facility] [address] [address]Dr. Bertram Paulino Protein [Mass/Vol] 7.4 g/dL Normal 6.4-8.2 [facility] Comment on above: Performed By: #### C MADM, TSH, CMP ####[facility] [address] [address]Dr. Bertram Paulino Sodium [Moles/Vol] 140 mmol/L Normal 136-145 [facility] Comment on above: Performed By: #### C MADM, TSH, CMP ####[facility] [address] [address]Dr. Bertram Paulino Urea nitrogen [Mass/Vol] 19.0 mg/dL Critically high 7.0-18.0 [facility] Comment on above: Performed By: #### C MADM TSH, CMP ####[facility] [address] [place], [place] [address]Dr. Bertram Paulino Urea nitrogen/Creatinine [Mass ratio] 23.8 mg/mg Normal [facility] Comment on above: Performed By: #### C MADKim TSH, CMP ####[facility] [address] [address]Dr. Bertram Paulino TSHon 05-04-2022 TSH 1.746 uIU/mL Normal 0.358-3.740 [facility] Comment on above: Performed By: #### C MADM, TSH, CMP ####[facility] [address] [address]Dr. Bertram Paulino B-Type Natriuretic Peptideon 12-28-2021 Natriuretic peptide B (Bld) [Mass/Vol] 15.0 pg/mL Normal 5-100 [facility] Comment on above: Result Comment: PERF ORMED BY: [place] [address] PATHOLOGIST [employer] MTZ M.D. Performed By: #### [employer] #### [place] [address] [place] Basic Metabolic Panelon 12-14 Calcium [Mass/Vol] 9.4 mg/dL Normal 8.2-10.2 [facility] Comment on above: Performed By: #### C BC, PT, PTT, HEPATIC, BMP, LIPASE #### [facility] [address] Chloride [Moles/Vol] 101 mmol/L Normal 95-114 [facility] Comment on above: Performed By: #### C BC, PT, PTT, HEPATIC, BMP, LIPASE #### [address] CO2 [Moles/Vol] 21.0 mmol/L Low 22.0-30.0 [facility] Comment on above: Performed By: #### C BC, PT, PTT, HEPATIC, BMP, LIPASE #### [address] Creatinine [Mass/Vol] 0.54 mg/dL Normal 0.44-1.03 [facility] Comment on above: Performed By: #### C BC, PT, PTT, HEPATIC, BMP, LIPASE #### [address] Creatinine Clr Calc Pharmacy 153.81 [facility] Comment on above: Performed By: #### C BC, PT, PTT, HEPATIC, BMP, LIPASE #### [address] Estimated GFR ( Kristen > 60 [facility] Comment on above: Result Comment: GFR estimated reference range: According to KDOQI guidelines, <60 ml/min/1.73m2 is sufficient to diagnose a patient with chronic kidney disease. Performed By: #### C BC, PT, PTT, HEPATIC, BMP, LIPASE #### [address] Estimated GFR (Non- Am > 60 [facility] Comment on above: Performed By: #### C BC, PT, PTT, HEPATIC, BMP, LIPASE #### [address] Glucose [Mass/Vol] 98 mg/dL Normal 70-100 [facility] Comment on above: Result Comment: [facility] Glucose Reference Range is dependent on time and content of last meal. Glucose of more than 200 mg/dL in a nonstressed, ambulatory subject supports the diagnosis of Diabetes Mellitus. ADA recommended reference range Performed By: #### C BC, PT, PTT, HEPATIC, BMP, LIPASE #### [facility] [address] Potassium [Moles/Vol] 3.7 mmol/L Normal 3.5-5.1 [facility] Comment on above: Performed By: #### C BC, PT, PTT, HEPATIC, BMP, LIPASE #### [facility] [address] Sodium [Moles/Vol] 134 mmol/L Low 136-146 [facility] Comment on above: Performed By: #### C BC, PT, PTT, HEPATIC, BMP, LIPASE #### [facility] [address] Urea nitrogen [Mass/Vol] 4 mg/dL Low 9-23 [facility] Comment on above: Performed By: #### C BC, PT, PTT, HEPATIC, BMP, LIPASE #### [facility] [address] abdomen pelvis w conon CT abdomen pelvis w con [facility] [place] [address] [place] [address] CT Scan Report Signed Patient: Lu Cancino MR#: [id number] : 1970 Acct:[id number] Age/Sex: 50 / F ADM Date: 12/28/21 Loc: ER Room: Type: [facility] ER Attending Dr: Ordering Provider: Ricardo Young DO Date of Service: 12/28/21 CT/CT abdomen pelvis w con: Abdominal Pain Copies to: Ricardo Young DO CT abdomen pelvis w con 12/28/2021 [...] Erasmo Brooks M.D.12/28/2021 8:14 PM Dictation Location: [place] [address] Transcribed By: [facility] 12/28/212013 Dictated By: Erasmo Brooks II, MD 12/28/212006 Signed By: 12/28/212013 Normal [facility] Complete Blood Count Auto Di ffon 12-28-2021 Basophils (Bld) [#/Vol] 0.0 10*3/uL Normal 0.0-0.2 [facility] Comment on above: Result Comment: PERF ORMED BY: [place] [address] PATHOLOGIST [employer]ORMY MTZ M.D. Performed By: #### C BC, PT, PTT, HEPATIC, BMP, LIPASE #### [address] Basophils/100 WBC (Bld) 0.9 % Normal . [facility] Comment on above: Performed By: #### C BC, PT, PTT, HEPATIC, BMP, LIPASE #### [address] Eosinophils (Bld) [#/Vol] 0.0 10*3/uL Normal 0.0-0.45 [facility] Comment on above: Performed By: #### C BC, PT, PTT, HEPATIC, BMP, LIPASE #### [address] Eosinophils/100 WBC (Bld) 0.7 % Normal . [facility] Comment on above: Performed By: #### C BC, PT, PTT, HEPATIC, BMP, LIPASE #### [address] Erythrocyte distribution width (RBC) [Ratio] 14.9 % Normal 11.9-15.3 [facility] Comment on above: Performed By: #### C BC, PT, PTT, HEPATIC, BMP, LIPASE #### [address] Hematocrit (Bld) [Volume fraction] 37.6 % Normal 34.0-46.4 [facility] Comment on above: Performed By: #### C BC, PT, PTT, HEPATIC, BMP, LIPASE #### [address] Hemoglobin (Bld) [Mass/Vol] 12.8 g/dL Normal 11.8-15.4 [facility] Comment on above: Performed By: #### C BC, PT, PTT, HEPATIC, BMP, LIPASE #### [address] Lymphocytes (Bld) [#/Vol] 1.7 10*3/uL Normal 1.00-4.8 [facility] Comment on above: Performed By: #### C BC, PT, PTT, HEPATIC, BMP, LIPASE #### [facility] [address] Lymphocytes/100 WBC (Bld) 34.3 % Normal . [facility] Comment on above: Performed By: #### C BC, PT, PTT, HEPATIC, BMP, LIPASE #### [address] MCH (RBC) [Entitic mass] 30.2 pg Normal 24.7-34.3 [facility] Comment on above: Performed By: #### C BC, PT, PTT, HEPATIC, BMP, LIPASE #### [address] MCV (RBC) [Entitic vol] 88.6 fL Normal 80-100 [facility] Comment on above: Performed By: #### C BC, PT, PTT, HEPATIC, BMP, LIPASE #### [address] Mean Corpuscular HGB Conc 34.1 g/dL Normal 32.0-35.0 [facility] Comment on above: Performed By: #### C BC, PT, PTT, HEPATIC, BMP, LIPASE #### [address] Monocytes (Bld) [#/Vol] 0.6 10*3/uL Normal 0.0-0.8 [facility] Comment on above: Performed By: #### C BC, PT, PTT, HEPATIC, BMP, LIPASE #### [address] Monocytes/100 WBC (Bld) 12.1 % Normal . [facility] Comment on above: Performed By: #### C BC, PT, PTT, HEPATIC, BMP, LIPASE #### [address] Neutrophils (Bld) [#/Vol] 2.5 10*3/uL Normal 1.8-7.7 [facility] Comment on above: Performed By: #### C BC, PT, PTT, HEPATIC, BMP, LIPASE #### [address] Neutrophils/100 WBC (Bld) 52.0 % Normal . [facility] Comment on above: Performed By: #### C BC, PT, PTT, HEPATIC, BMP, LIPASE #### [address] Nucleated RBC/100 WBC (Bld) [Ratio] 0.0 % Normal 0-0.5 [facility] Comment on above: Performed By: #### C BC, PT, PTT, HEPATIC, BMP, LIPASE #### [address] Platelet mean volume (Bld) [Entitic vol] 7.8 fL Normal 6.3-10.7 [facility] Comment on above: Performed By: #### C BC, PT, PTT, HEPATIC, BMP, LIPASE #### [address] Platelets (Bld) [#/Vol] 458 10*3/uL High 150-450 [facility] Comment on above: Performed By: #### C BC, PT, PTT, HEPATIC, BMP, LIPASE #### [address] RBC (Bld) [#/Vol] 4.25 10*6/uL Normal 3.60-5.00 [facility] Comment on above: Performed By: #### C BC, PT, PTT, HEPATIC, BMP, LIPASE #### [address] WBC (Bld) [#/Vol] 4.9 10*3/uL Normal 4.5-11.0 [facility] Comment on above: Performed By: #### C BC, PT, PTT, HEPATIC, BMP, LIPASE #### [address] ECG 12 lead ECGon 12-28-2021 ECG 12 lead ECG [facility] [place] [address] [place] [address] Electrocardiograph Report Signed Patient: Lu Cancino MR#: [id number] : 1970 Acct:[id number] Age/Sex: 50 / F ADM Date: 12/28/21 Loc: ER Room: Type: [facility] ER Attending Dr: Ordering Provider: Ricardo Young DO Date of Service: 12/28/21 ECG/ECG 12 [...] ms Normal sinus rhythm Confirmed by Ricardo YOUNG DO ([id number]) on 12/28/2021 9:15:05 PM Referred By: Electronically Signed By:Ricardo YOUNG DO Transcribed By: MUS Signed By Ricardo Young DO 0 12/28/212114 [facility] HCG,Urineon 12-28-2021 Beta HCG ( test) Ql (U) Negative [facility] Comment on above: Order Comment: Name Collection Type:: Clean-Voided Midstream Result Comment: PERF ORMED BY: [place] [address] PATHOLOGIST [employer]ORMY MTZ M.D. Performed By: #### C BC, PT, PTT, HEPATIC, BMP, LIPASE #### [facility] [address] [place], [place] [id number] [facility] Hepatic Panelon 12-28-2021 Albumin [Mass/Vol] 4.0 g/dL Normal 3.2-5.5 [facility] Comment on above: Performed By: #### C BC, PT, PTT, HEPATIC, BMP, LIPASE #### [facility] [address] [place], [place] [id number] [facility] Albumin/Globulin [Mass ratio] 1.6 {ratio} [facility] Comment on above: Performed By: #### C BC, PT, PTT, HEPATIC, BMP, LIPASE #### [facility] [address] ALP [Catalytic activity/Vol] 38 U/L Normal 32-92 [facility] Comment on above: Performed By: #### C BC, PT, PTT, HEPATIC, BMP, LIPASE #### [facility] [address] ALT [Catalytic activity/Vol] 44 U/L Normal 10-60 [facility] Comment on above: Performed By: #### C BC, PT, PTT, HEPATIC, BMP, LIPASE #### [facility] [address] AST [Catalytic activity/Vol] 38 U/L Normal 10-42 [facility] Comment on above: Performed By: #### C BC, PT, PTT, HEPATIC, BMP, LIPASE #### [address] Bilirubin [Mass/Vol] 0.8 mg/dL Normal 0.3-1.2 [facility] Comment on above: Performed By: #### C BC, PT, PTT, HEPATIC, BMP, LIPASE #### [address] Bilirubin,Indirect 0.7 mg/dL Normal [facility] Comment on above: Performed By: #### C BC, PT, PTT, HEPATIC, BMP, LIPASE #### [address] Bilirubin.indirect [Mass/Vol] 0.1 mg/dL Normal 0.0-0.4 [facility] Comment on above: Performed By: #### C BC, PT, PTT, HEPATIC, BMP, LIPASE #### [place] [address] [place] Globulin (S) [Mass/Vol] 2.5 g/dL Normal [facility] Comment on above: Performed By: #### C BC, PT, PTT, HEPATIC, BMP, LIPASE #### [address] Protein [Mass/Vol] 6.5 g/dL Normal 6.1-7.9 [facility] Comment on above: Performed By: #### C BC, PT, PTT, HEPATIC, BMP, LIPASE #### [facility] [address] Lipaseon 12-28-2021 Lipase [Catalytic activity/Vol] 29.0 U/L Normal 22-51 [facility] Comment on above: Result Comment: PERF ORMED BY: [place] [address] PATHOLOGIST [employer]OR[employer] MTZ M.D. Performed By: #### C BC, PT, PTT, HEPATIC, BMP, LIPASE #### [address] Partial Thromboplastin Timeo n 12-28-2021 aPTT Coag (Bld) [Time] 30.4 s Normal 25.1-36.5 [facility] Comment on above: Result Comment: PERF ORMED BY: [place] [address] PATHOLOGIST [employer]ST[employer]ER STORMY MTZ M.D. Performed By: #### C BC, PT, PTT, HEPATIC, BMP, LIPASE #### [address] Prothrombin Time INRon 12-28 INR Coag (PPP) [Relative time] 1.0 {INR} Normal [facility] Comment on above: Result Comment: INR [...] BC, PT, PTT, HEPATIC, BMP, LIPASE #### [address] PT Coag (PPP) [Time] 11.8 s Normal 9.0-12.9 [facility] Comment on above: Performed By: #### C BC, PT, PTT, HEPATIC, BMP, LIPASE #### [facility] [address] [place] [address] Urinalysison 12-28-2021 Appearance (U) Clear Normal Clear [facility] Comment on above: Order Comment: Name Collection Type:: Clean-Voided Midstream Performed By: #### C BC, PT, PTT, HEPATIC, BMP, LIPASE #### [facility] [address] [place] [address] Bilirubin,Urine Negative Normal Negative [facility] Comment on above: Order Comment: Name Collection Type:: Clean-Voided Midstream Performed By: #### C BC, PT, PTT, HEPATIC, BMP, LIPASE #### [facility] [address] [place] [address] Color (U) Yellow Normal Yellow [facility] Comment on above: Order Comment: Name Collection Type:: Clean-Voided Midstream Performed By: #### C BC, PT, PTT, HEPATIC, BMP, LIPASE #### [facility] [address] [place] [address] Glucose Ql (U) Normal Normal Normal [facility] Comment on above: Order Comment: Name Collection Type:: Clean-Voided Midstream Performed By: #### C BC, PT, PTT, HEPATIC, BMP, LIPASE #### [facility] [address] [place] [address] Ketones Ql (U) Negative Normal Negative [facility] Comment on above: Order Comment: Name Collection Type:: Clean-Voided Midstream Performed By: #### C BC, PT, PTT, HEPATIC, BMP, LIPASE #### [facility] [address] [place] [address] [place] Leukocyte esterase Test strip Ql (U) Negative Normal Negative [facility] Comment on above: Order Comment: Name Collection Type:: Clean-Voided Midstream Performed By: #### C BC, PT, PTT, HEPATIC, BMP, LIPASE #### [facility] [address] [place] [address] [place] Nitrite,Urine Negative Normal Negative [facility] Comment on above: Order Comment: Name Collection Type:: Clean-Voided Midstream Performed By: #### C BC, PT, PTT, HEPATIC, BMP, LIPASE #### [address] Occult Blood,Urine Negative Normal Negative [facility] Comment on above: Order Comment: Name Collection Type:: Clean-Voided Midstream Performed By: #### C BC, PT, PTT, HEPATIC, BMP, LIPASE #### [address] pH (U) 7.5 [pH] Normal 5.0-9.0 [facility] Comment on above: Order Comment: Name Collection Type:: Clean-Voided Midstream Performed By: #### C BC, PT, PTT, HEPATIC, BMP, LIPASE #### [address] Protein,Urine Negative Normal Negative [facility] Comment on above: Order Comment: Name Collection Type:: Clean-Voided Midstream Performed By: #### C BC, PT, PTT, HEPATIC, BMP, LIPASE #### [address] Specificy Matthews,Urine 1.004 Normal 1.001-1.030 [facility] Comment on above: Order Comment: Name Collection Type:: Clean-Voided Midstream Performed By: #### C BC, PT, PTT, HEPATIC, BMP, LIPASE #### [address] Urobilinogen,Urine Normal Normal Normal [facility] Comment on above: Order Comment: Name Collection Type:: Clean-Voided Midstream Performed By: #### C BC, PT, PTT, HEPATIC, BMP, LIPASE #### [address] XR chest 1V portableon 12-28 XR chest 1V portable [facility] [address] XRay Report Signed Patient: Lu Cancino MR#: [id number] : [id number] Acct:[id number] Age/Sex: 50 / F ADM Date: 12/28/21 Loc: ER Room: Type: PRE ER Attending Dr: Ordering Provider: Ricardo Young DO Date of Service: 12/28/21 XR/XR chest 1V portable: Abdominal Pain Copies to: Ricardo Young DO XR chest 1V portable 12/28/2021 5:46 [...] Erasmo Brooks M.D.12/28/2021 6:18 PM Dictation Location: [place] [address] Transcribed By: [facility] 12/28/211817 Dictated By: Erasmo Brooks II, MD 12/28/211816 Signed By: 12/28/211817 Normal [facility] ANTI DNAon 04-09-2019 ANTI DNA <1:10 Normal <1:10 [facility] Comment on above: Performed By: #### 1 009, 76119, 07803 #### [facility] [address] ANTI-ENAon 04-09-2019 ANTI SM Negative Normal NEG,NEGATIVE, Neg [facility] Comment on above: Performed By: #### 1 0097, [id number], 46927 #### [facility] [address] ANTI SM/ANTIRNP Negative Normal NEG,NEGATIVE , Neg [facility] Comment on above: Performed By: #### 1 0097, 40519, 20695 #### [facility] [address] [facility] [place] [address], [facility] C REACTIVE PROTEINon 019 CRP mass conc 8.0 mg/L High 0.0-7.0 [facility] Comment on above: Performed By: #### 6 1405 #### [facility] [address] [place] [address], [facility] CHROMATIN ANTIBODY, IGG 2004 287on 04-09-2019 CHROMATIN ANTIBODY, IGG 4 Units Normal 0-19 [facility] Comment on above: Result Comment: INTE RPRETIVE [...] when antibody levels are high. Performed by [email or web address], [address] [facility] [id number] [email or web address], Sam Brito MD - Lab. Director CYCLIC CITRULLINATED PEPTIDE [place] [address]882st 04-09-2019 CYCLIC CIT PEP 5 Units Normal 0-19 [facility] Comment on above: Result Comment: INTE [...] be monitored and testing repeated. Performed by [email or web address], [address] [place] [address] [email or web address], Sam Brito MD - Lab. Director SEDIMENTATION RATEon 019 SED RATE 34 mm/hr High 0-20 [facility] Comment on above: Performed By: #### 5 6506 #### [facility] [address] [place] [address], [facility] SJOGRENS ANTIBODIESon 2018 SS-A Negative Normal NEG,NEGATIVE, Neg [facility] Comment on above: Performed By: #### 1 0097, 93385, 23284 #### [facility] [address] [place] [address], [facility] SS-B Negative Normal NEG,NEGATIVE, Neg [facility] Comment on above: Performed By: #### 1 0097, 42508, 87994 #### [facility] [address] [place] [address], [facility] Vital Signs Date Time Vital Sign Value Performing Clinician Facility 01-01-2025 16:36-0500 Body height 157.5 cm Echo Mm Work Phone: [facility] 01-01-2025 16:36-0500 Body mass index (BMI) [Ratio] 49.38 kg/m2 Echo Mm Work Phone: [facility] 01-01-2025 16:36-0500 Body weight 122.47 kg Echo Mm Work Phone: [facility] 10-28-2024 13:08-0500 Body height 157.5 cm Melani Deras [employer] Work Phone: [facility] 10-28-2024 13:08-0500 Body mass index (BMI) [Ratio] 49.64 kg/m2 Melani Deras [employer] Work Phone: [facility] 10-28-2024 13:08-0500 Body temperature 98.29 [degF] Melani Deras [employer] Work Phone: [facility] 10-28-2024 13:08-0500 Body weight 123.11 kg Melani Deras [employer] Work Phone: [facility] 10-28-2024 13:08-0500 Diastolic blood pressure 78 mm[Hg] Melani Wiseholz [employer] Work Phone: [facility] 10-28-2024 13:08-0500 Heart rate 75 /min Melanidemarcus Wiseholz [employer] Work Phone: [facility] 10-28-2024 13:08-0500 Respiratory rate 19 /min Melani Billieholz [employer] Work Phone: [facility] 10-28-2024 13:08-0500 SaO2% (BldA) [Mass fraction] 96 % Melani Wiseholz [employer] Work Phone: [facility] 10-28-2024 13:08-0500 Systolic blood pressure 142 mm[Hg] Melani Wiseholz [employer] Work Phone: [facility] 09-20-2024 18:52-0500 Body height 157.48 cm [facility] 09-20-2024 18:52-0500 Body mass index (BMI) [Ratio] 49.9 kg/m2 [facility] 09-20-2024 18:52-0500 Body temperature 98.3 [degF] [facility] 09-20-2024 18:52-0500 Body weight 123.83 kg [facility] 09-20-2024 18:52-0500 Diastolic blood pressure 72 mm[Hg] [facility] 09-20-2024 18:52-0500 Heart rate 83 /min [facility] 09-20-2024 18:52-0500 Respiratory rate 16 /min [facility] 09-20-2024 18:52-0500 SaO2% (BldA) [Mass fraction] 97 % [facility] 09-20-2024 18:52-0500 Systolic blood pressure 110 mm[Hg] [facility] 08-07-2024 13:42-0400 Body height 157.5 cm Melani Deras [employer] Work Phone: [facility] 08-07-2024 13:42-0400 Body mass index (BMI) [Ratio] 50.08 kg/m2 Melani Deras [employer] Work Phone: [facility] 08-07-2024 13:42-0400 Body temperature 98.29 [degF] Melani Deras [employer] Work Phone: [facility] 08-07-2024 13:42-0400 Body weight 124.19 kg Melani Deras [employer] Work Phone: [facility] 08-07-2024 13:42-0400 Diastolic blood pressure 78 mm[Hg] Melani Deras [employer] Work Phone: [facility] 08-07-2024 13:42-0400 Heart rate 83 /min Melani Bez [employer] Work Phone: [facility] 08-07-2024 13:42-0400 Respiratory rate 21 /min Melanidemarcus Deras [employer] Work Phone: [facility] 08-07-2024 13:42-0400 SaO2% (BldA) [Mass fraction] 97 % Melani Deras [employer] Work Phone: [facility] 08-07-2024 13:42-0400 Systolic blood pressure 120 mm[Hg] Melani Bez [employer] Work Phone: [facility] 07-10-2024 13:03-0400 Body mass index (BMI) [Ratio] 49.2 kg/m2 Jackie NAPIER Work Phone: [facility] 07-10-2024 13:03-0400 Body weight 122.02 kg Jackie NAPIER Work Phone: [facility] 07-10-2024 13:03-0400 Diastolic blood pressure 74 mm[Hg] Jackie NAPIER Work Phone: [facility] 07-10-2024 13:03-0400 Systolic blood pressure 122 mm[Hg] Jackie NAPIER Work Phone: [facility] 08-26-2023 13:10-0400 Body height 157.48 cm Selene Martinez Other [employer] Other 08-26-2023 13:10-0400 Body mass index (BMI) [Ratio] 49.01 kg/m2 Selene Martinez Other [employer] Other 08-26-2023 13:10-0400 Body temperature 97.9 [degF] Selene Martinez Other [employer] Other 08-26-2023 13:10-0400 Body weight 121.56 kg Selene Martinez Other [employer] Other 08-26-2023 13:10-0400 Diastolic blood pressure 71 mm[Hg] Selene Martinez Other [employer] Other 08-26-2023 13:10-0400 Respiratory rate 18 /min Selene Martinez Other [employer] Other 08-26-2023 13:10-0400 SaO2% (BldA) [Mass fraction] 99 % Selene Martinez Other [employer] Other 08-26-2023 13:10-0400 Systolic blood pressure 142 mm[Hg] Selene Martinez Other [employer] Other 05-31-2022 18:00-0400 Body height 157.48 cm Rose De Other [employer] Other 05-31-2022 18:00-0400 Body mass index (BMI) [Ratio] 45.72 kg/m2 Rose De Other [employer] Other 05-31-2022 18:00-0400 Body temperature 98.3 [degF] Rose Santino Other [employer] Other 05-31-2022 18:00-0400 Body weight 113.4 kg Rose De Other [employer] Other 05-31-2022 18:00-0400 Respiratory rate 18 /min Rose De Other [employer] Other 05-31-2022 18:00-0400 SaO2% (BldA) [Mass fraction] 95 % Rose De Other [employer] Other 09-10-2021 13:45-0400 Body height 157.48 cm Selene Martinez Other [employer] Other 09-10-2021 13:45-0400 Body mass index (BMI) [Ratio] 45.72 kg/m2 Selene Michelle Other [employer] Other 09-10-2021 13:45-0400 Body temperature 96.8 [degF] Selene Michelle Other [employer] Other 09-10-2021 13:45-0400 Body weight 113.4 kg Selene Michelle Other [employer] Other 09-10-2021 13:45-0400 Respiratory rate 18 /min Selene Michelle Other [employer] Other 09-10-2021 13:45-0400 SaO2% (BldA) [Mass fraction] 97 % Selene Michelle Other [facility] [employer] Other Encounters Encounter Date Encounter Type Care Provider Facility Start: 01-02-2025 End: 01-02-2025 Nursing evaluation of patient and report Echo Intm Cp Gilberto Mm Work Phone: [facility] Comment on above: Acute on chronic sys tolic congestive heart failure (HCC) (Primary Dx) Start: 12-19-2024 End: 12-20-2024 Refill Melani Augusta [employer] Work Phone: [facility] Comment on above: Vitamin deficiency ( Primary Dx) Start: 12-18-2024 End: 12-19-2024 Telephone encounter Eddy Lorenzana MD Work Phone: [facility] Start: 12-12-2024 End: 12-12-2024 ambulatory [facility] Start: 11-19-2024 End: 11-19-2024 Orders Only Peri Sandoval [employer] Work Phone: [facility] Comment on above: Lumbar radiculopathy (Primary Dx); Idiopathic progressive neuropathy Start: 11-17-2024 End: 11-17-2024 Refill Melani Augusta [employer] Work Phone: [facility] Comment on above: Gastroesophageal ref lux disease, unspecified whether esophagitis present Start: 11-14-2024 End: 11-15-2024 Refill Melani Indianaz [employer] Work Phone: [facility] Comment on above: Edema of lower extre mity Fibromyalgia (Primar y Dx) Idiopathic progressi ve neuropathy Start: 10-28-2024 End: 10-28-2024 Bamboo flowsheet Melani Deras [employer] Work Phone: [facility] Start: 10-28-2024 End: 10-28-2024 Bamboo flowsheet Melani Deras [employer] Work Phone: [facility] Start: 10-28-2024 End: 10-28-2024 ambulatory MELANI AICHHOLZ Not Available Start: 10-28-2024 End: 10-28-2024 Office outpatient visit 15 minutes Melani Aichholz [employer] Work Phone: [facility] Comment on above: Other chest pain (Pr imary Dx); Gastroesophageal reflux disease, unspecified whether esophagitis present; Idiopathic progressive neuropathy; FELICE (obstructive sleep apnea); Edema of lower extremity; Morbid obesity ([facility]); Prediabetes; Fibromyalgia; Bipolar II disorder, most recent episode major depressive ([facility]); Vitamin deficiency; Chronic dental infection Start: 09-20-2024 End: 09-20-2024 ambulatory [facility] Work Phone: Start: 09-20-2024 End: 09-20-2024 Patient encounter procedure [facility] [place] Work Phone: Start: 09-08-2024 End: 09-10-2024 Refill Melani Aichholz [employer] Work Phone: [facility] Comment on above: Fibromyalgia (Primar y Dx); Gastroesophageal reflux disease, unspecified whether esophagitis present; Edema of lower extremity Start: 09-07-2024 End: 09-09-2024 Refill Melani Aichholz [employer] Work Phone: [facility] Comment on above: Gastroesophageal ref lux disease, unspecified whether esophagitis present Start: 09-06-2024 End: 09-06-2024 ambulatory EDDY LORENZANA Not Available Start: 09-02-2024 End: 09-02-2024 Telephone encounter Eddy Lorenzana MD Work Phone: [facility] Start: 08-24-2024 End: 08-25-2024 Refill Mahesh Rocha MD Work Phone: [facility] Comment on above: Vitamin deficiency ( Primary Dx) Start: 08-09-2024 End: 08-09-2024 Refill Melani Aichholz [employer] Work Phone: [facility] Comment on above: Dental infection (Pr imary Dx) Start: 08-07-2024 End: 08-07-2024 Office outpatient visit 25 minutes Melani Deras NP Work Phone: [facility] Comment on above: Prediabetes (Primary Dx); FELICE (obstructive sleep apnea); Essential hypertension ([facility]); Fibromyalgia; Edema of lower extremity; Morbid obesity ([facility]); Bipolar II disorder, most recent episode major depressive ([facility]); PELON (generalized anxiety disorder) ([facility]); Screening for colon cancer Start: 08-07-2024 End: 08-07-2024 ambulatory MELANI DERAS Not Available Start: 07-10-2024 End: 07-10-2024 Bamboo flowsheet Jackie NAPIER Work Phone: [facility] Start: 07-10-2024 End: 07-15-2024 Bamboo flowsheet Jackie NAPIER Work Phone: [facility] Start: 07-10-2024 End: 07-15-2024 Clinisync Result Encounter Generic External Data Provider [facility] External Department Unsolicited Start: 07-10-2024 End: 07-10-2024 Patient encounter procedure Jackie NAPIER Work Phone: [facility] Healthcare Start: 07-10-2024 End: 07-10-2024 Periodic preventive med est patient 40-64yrs Jackie NAPIER Work Phone: [facility] Comment on above: Well woman exam with routine gynecological exam; Osteoporosis, post-menopausal ([facility]) Start: 07-10-2024 End: 07-10-2024 ambulatory JACKIE HERNANDEZ Not Available Start: 07-05-2024 End: 07-08-2024 Refill Melani Deras [employer] Work Phone: [facility] Comment on above: Gastroesophageal ref lux disease, unspecified whether esophagitis present Idiopathic progressi ve neuropathy Start: 07-03-2024 End: 07-03-2024 Refill Melani Deras NP Work Phone: [facility] Comment on [...] Available Start: 03-07-2024 End: 03-07-2024 ambulatory JOSH Anthony PARKINSON Not Available Start: 02-01-2024 End: 02-01-2024 ambulatory MELANI AICHHOLZ Not Available Start: 01-08-2024 End: 01-08-2024 ambulatory ELVIS BRONSON Not Available Start: 12-21-2023 End: 12-21-2023 ambulatory EDDY LORENZANA Not Available Start: 12-20-2023 Refill Eddy tyler MD Work Phone: [facility] Comment on above: Myalgia; Numbness and tingling; Weakness Start: 12-19-2023 End: 12-19-2023 ambulatory EBEN DUQUE Not Available Start: 12-15-2023 End: 12-15-2023 Chart abstracting Elvis Bronson [facility] Work Phone: [facility] Comment on above: Bipolar II disorder, most recent episode major depressive ([facility]) Start: 12-15-2023 End: 12-15-2023 ambulatory ELVIS BRONSON Not Available Start: 11-23-2023 End: 11-23-2023 ambulatory ELVIS BRONSON Not Available Start: 11-02-2023 End: 11-02-2023 ambulatory EDDY Raul LORENZANA Not Available Start: 08-26-2023 End: 08-26-2023 ambulatory Selene Martinez Other [employer] Other Start: 08-26-2023 Office outpatient vi sit 15 minutes Selene Martinez [facility] [place] Start: 05-23-2023 End: 05-23-2023 ambulatory FRACISCO Alvarez [facility] Start: 04-11-2023 Letter encounter [facility] Start: 03-21-2023 End: 03-22-2023 ambulatory [employer] MELANI AICHHOLZ Facility:[facility] Start: 01-23-2023 End: 01-23-2023 ambulatory [employer] MELANI AICHHOLZ Facility:[facility] Start: 01-12-2023 End: 01-13-2023 ambulatory [employer] MELANI AICHHOLZ Facility:[facility] Start: 01-12-2023 Letter encounter Lili black Start: 08-09-2022 End: 08-10-2022 ambulatory SLADEJOSE FONG . Facility:[facility] Start: 07-19-2022 End: 07-20-2022 ambulatory [employer] MELANI AICHHOLZ Facility:[facility] Start: 07-15-2022 End: 07-16-2022 ambulatory [employer] MELANI AICHHOLZ Facility:[facility] Start: 07-10-2022 End: 07-11-2022 ambulatory [employer] MELANI AICHHOLZ Facility:[facility] Start: 07-05-2022 End: 07-05-2022 Phys/qhp telephone evaluation 21-30 min Lucía Calderon APRN-[employer] Work Phone: [facility] Comment on above: Chest pain, unspecif ied type (Primary Dx); [id number] condition Start: 07-05-2022 End: 07-08-2022 ambulatory UNKNOWN PROVIDER Facility:[facility] Start: 06-30-2022 End: 07-01-2022 ambulatory [employer] MELANI AICHHOLZ Facility:[facility] Start: 06-15-2022 End: 06-16-2022 ambulatory [employer] MELANI AICHHOLZ Facility:[facility] Start: 06-04-2022 End: 06-04-2022 ambulatory [employer] MELANI AICHHOLZ Facility:[facility] Start: 05-31-2022 End: 05-31-2022 ambulatory Rose De Other [employer] Other Start: 05-31-2022 Office outpatient vi sit 25 minutes Rose De [facility] [place] Start: 05-15-2022 End: 05-15-2022 ambulatory [employer] MELANI DERAS Facility:[facility] Start: 05-04-2022 End: 05-04-2022 ambulatory ALEJANDRA PHELPS . Facility:[facility] Start: 04-04-2022 Letter encounter Lili black Start: 03-24-2022 End: 03-24-2022 Phys/qhp telephone evaluation 11-20 min Lucía Calderno APRN-[employer] Work Phone: [facility] Comment on above: Shortness of breath (Primary Dx); [id number] condition Start: 12-28-2021 End: 12-28-2021 Emergency department patient visit Ricardo Young Facility:[facility] Start: 09-10-2021 (URG) Urgent Care Visit Selene cui [facility] [place] Procedures Date Procedure Procedure Detail Performing Clinician Start: 01-07-2025 Doppler echocard pul se wave w/spectral display Darius Hastings MD Work Phone: Start: 10-28-2024 Hemoglobin glycosyla yolanda a1c Melani Deras [employer] Work Phone: Start: 07-10-2024 IGP,APTIMA HPV,AGE GDLN Jackie NAPIER Work Phone: Start: 07-10-2024 Microscopic observat ion [Identifier] in Cervix by Cyto stain Melani Deras [employer] Work Phone: Start: 05-28-2024 Mammography Melani xiong [employer] Work Phone: Start: 09-26-2017 Microscopic observat ion [Identifier] in Cervix by Cyto stain Melani Deras [employer] Work Phone: Plan of Treatment Date Care Activity Detail Author Start: 07-10-2027 Screening for malign ant neoplasm of cervix [facility] Start: 05-28-2025 Screening for malign ant neoplasm of breast Mammogram [facility] Start: 01-27-2025 End: 01-27-2025 Clinical Support 01/27/2025 1:40 PM EDT Clinical Support [facility] [address] [place] [id number] Eddy Lorenzana MD [address], [place] [id number] [facility] Start: 12-24-2024 End: 12-24-2024 Patient encounter procedure 12/24/2024 1:20 PM EST Office Visit [facility] [address] [place] [address] Melani Deras, [employer] [address] [place] [address] [facility] Start: 10-28-2024 End: 10-28-2025 25-hydroxyvitamin D3 [Mass/volume] in Serum or Plasma Vitamin D 25 hydroxy Lab Routine Vitamin deficiency Expected: 10/28/2024 (Approximate), Expires: 10/28/2025 [facility] Comment on above: Expected: 10/28/2024 (Approximate), Expires: 10/28/2025 Start: 10-28-2024 End: 10-28-2025 Hepatic function 2000 panel - Serum or Plasma Hepatic function panel Lab Routine Prediabetes Expected: 10/28/2024 (Approximate), Expires: 10/28/2025 [facility] Comment on above: Expected: 10/28/2024 (Approximate), Expires: 10/28/2025 Start: 10-28-2024 End: 10-28-2025 Lipid 1996 panel - Serum or Plasma Lipid panel Lab Routine Prediabetes Expected: 10/28/2024 (Approximate), Expires: 10/28/2025 [facility] Work Phone: Comment on above: Expected: 10/28/2024 (Approximate), Expires: 10/28/2025 Start: 10-28-2024 End: 10-28-2025 Microalbumin/Creatinine panel in random Urine Microalbumin / creatinine, urine ratio Lab Routine Prediabetes Expected: 10/28/2024 (Approximate), Expires: 10/28/2025 [facility] Comment on above: Expected: 10/28/2024 (Approximate), Expires: 10/28/2025 Start: 10-28-2024 End: 10-28-2025 Urate [Mass/volume] in Serum or Plasma Uric acid Lab Routine Fibromyalgia Expected: 10/28/2024 (Approximate), Expires: 10/28/2025 [facility] Comment on above: Expected: 10/28/2024 (Approximate), Expires: 10/28/2025 Start: 10-28-2024 End: 10-28-2024 Patient encounter procedure 10/28/2024 1:00 PM EST Office Visit [facility] [address] [place] [address] Melani Deras, WILBERTO [address] [place] [place] [address] [facility] Start: 09-19-2024 End: 09-19-2024 Patient encounter procedure 09/19/2024 2:20 PM EST Office Visit [facility] [address] [facility] [address] [place] [address] Eddy Lorenzana MD [address] [facility] [address]ndt [address] [place] [address] [facility] Start: 09-06-2024 End: 09-06-2024 Telemedicine consultation with patient 09/06/2024 1:10 PM EDT Telemedicine [facility] [address] [place] [address] Eddy Lorenzana MD [address] [facility] [address]ndt [address] [place] [address] [facility] Start: 08-13-2024 Influenza vaccination Influenza Vacc ine (#1) [facility] Start: 08-07-2024 End: 08-07-2025 Noninvasive colorectal cancer DNA and occult blood screening [Presence] in Stool Cologuard colon cancer screening Lab Routine Screening for colon cancer Expected: 08/07/2024 (Approximate), Expires: 08/07/2025 [facility] Work Phone: Comment on above: Expected: 08/07/2024 (Approximate), Expires: 08/07/2025 Start: 07-25-2024 End: 07-25-2024 Patient encounter procedure 07/25/2024 1:00 PM EDT Office Visit [facility] [address] [place] [phone] Melani Deras NP [address] [place] [address] [facility] Start: 07-14-2024 Covid-19 Vaccine ( season) Covid-19 Vaccine ( season) [facility] Start: 07-14-2024 Influenza vaccination Influenza Vacc ine (#1) [facility] Start: 07-10-2024 End: 07-10-2025 DXA Skeletal system Views for bone density DEXA bone density Imaging Routine Osteoporosis, post-menopausal ([facility]/HCC) Expected: 07/10/2024 (Approximate), Expires: 07/10/2025 [facility] Work Phone: Comment on above: Expected: 07/10/2024 (Approximate), Expires: 07/10/2025 Start: 07-10-2024 End: 07-10-2024 Patient encounter procedure [facility] Comment on above: Arrived Start: 12-25-2023 End: 12-25-2023 Clinical Support 12/25/2023 2:00 PM EST Clinical Support [facility] [address] [place] [id number] Elvis Bronson, [facility] [address] [place] [address] [facility] Start: 12-21-2023 End: 12-21-2023 Patient encounter procedure 12/21/2023 2:20 PM EST Office Visit [facility] [address] [place] [address] Eddy Lorenzana MD [address] [facility] [address]ndt [address] [place] [address] [facility] Start: 12-19-2023 End: 12-19-2023 Patient encounter procedure 12/19/2023 10:00 AM EST Office Visit [facility] [address] [place] [address] Eben Duque, [employer] P[employer] [address] [facility] [address] [place] [address] [facility] Start: 12-15-2023 End: 12-15-2023 Clinical Support 12/15/2023 1:00 PM EST Clinical Support [facility] [address] [facility] [address] [place] [address] Elvis Bronson, [facility] [address] [place] [address] [facility] Start: 07-14-2023 COVID-19 Vaccine ( season) COVID-19 Vaccine ( season) [facility] Start: 07-14-2023 Influenza vaccination Influenza Vacc ine (#1) [facility] Start: 08-13-2022 Influenza vaccination Influenza Vacc ine (#1) [facility] Start: 07-05-2022 End: 07-05-2022 Telemedicine consultation with patient 07/05/2022 Telemedicine Rheumatology Lucía Calderon, BRIDGE REPAIR CREW PERSON-[employer] [address] [place] [address] [facility] Start: 09-26-2020 Screening for malign ant neoplasm of cervix [facility] Start: 2019 Measurement of occul t blood in single stool specimen [facility] Start: 2019 Pneumococcal Vaccine : 50+ (1 of 1 - PCV) Pneumococcal Vaccine: 50+ (1 of 1 - PCV) [facility] Start: 2019 Screening for malign ant neoplasm of breast Mammography [facility] Start: 2019 Screening for malign ant neoplasm of colon CRC Screening [facility] Start: 2019 Shingles (RZV) Vacci ne (1 of 2) Shingles (RZV) Vaccine (1 of 2) [facility] Start: 2019 Shingrix Vaccine (1 of 2) Shingrix Vaccine (1 of 2) [facility] Start: 2014 Cholesterol [Mass/volume] in Serum or Plasma Cholesterol [facility] Start: 2014 Diabetes Screening Diabetes Screenin g [facility] Start: 2014 Lipid panel Lipid Screening [facility] Start: 2014 Screening for malign ant neoplasm of colon [facility] Start: 2009 Screening for malign ant neoplasm of breast [facility] Start: 1999 Screening for malign ant neoplasm of cervix [facility] Start: 1990 Screening for malign ant neoplasm of cervix [facility] Start: 1988 Hepatitis A (HAV) Vaccine (optional start 19+ years) Hepatitis A (HAV) Vaccine (optional start 19+ years) [facility] Start: 1988 Hepatitis B vaccination Hepati tis B (HBV) Vaccine (1 of 3 - 19+ 3-dose series) [facility] Start: 1988 Hepatitis B Vaccine (1 of 3 - 19+ 3-dose series) Hepatitis B Vaccine (1 of 3 - 19+ 3-dose series) [facility] Start: 1988 Urine microalbumin profile DTaP,Tdap,Td Vaccine (1 - Tdap) [facility] Start: 1987 Anxiety Screening Anxiety Screening [facility] Start: 1987 Depression Screening Depression Scre ening [facility] Start: 1987 [facility]atitis C [facility] Start: 1987 HIV screening HIV Screening [facility] Start: 1987 Tetanus + diphtheria + acellular pertussis vaccine (product) Tdap Booster [facility] Start: 1984 HIV screening HIV Test [facility] Start: 1974 COVID-19 Vaccine (#1) COVID-19 Vacci ne (#1) [facility] Start: 1974 COVID-19 Vaccine (1) COVID-19 Vaccin e (1) [facility] Start: 06-28-1970 COVID-19 Vaccine (#1) COVID-19 Vacci ne (#1) [facility] Start: 1969 Screening for malign ant neoplasm of colon [facility] THIN PREP TIS PAP AN D HR HPV DNA THIN PREP TIS PAP AND HR HPV DNA Pathology and Cytology Routine Well woman exam with routine gynecological exam Ordered: 07/10/2024 [facility] Comment on above: Ordered: 07/10/2024 Payers Date Payer Category Payer Self-pay 2019 Medicaid [id number] 2019 Private Health Insurance [facility] MEDICA[facility] [id number] 1969 Unknown [id number] 2.16.840.1.643935.3.579.2. 593 1969 Unknown [id number] 2.16.840.1.064295.3.579.2. 593 1969 Unknown [id number] 2.16.840.1.449138.3.579.2. 593 1969 Unknown [id number] 2.16.840.1.602969.3.579.2. 593 1969 Unknown [id number] 2.16.840.1.397591.3.579.2. 593 1969 Unknown [id number] 2.16.840.1.236503.3.579.2. 593 1969 Unknown [id number] 2.16.840.1.245969.3.579.2. 593 1969 Unknown [id number] 2.16.840.1.717994.3.579.2. 593 1969 Unknown [id number] 2.16.840.1.478709.3.579.2. 593 1969 Unknown [id number] 2.16.840.1.718880.3.579.2. 593 1969 Unknown [id number] 2..840.1.419361.3.579.2. 593 1969 Unknown [id number] 2.16.840.1.036501.3.579.2. 593 1969 Unknown [id number] 2.16.840.1.324746.3.579.2. 732 1969 Unknown [id number] 2.16.840.1.430681.3.579.2. 1259 1969 Unknown [id number] 2.16.840.1.800792.3.579.2. 1259 1969 Unknown [id number] 2.16.840.1.159953.3.579.2. 1259 1969 Unknown [id number] 2.16.840.1.838378.3.579.2. 1259 1969 Unknown [id number] 2.16.840.1.388327.3.579.2. 1259 1969 Unknown [id number] 2.16.840.1.563078.3.579.2. 1259 1969 Unknown [id number] 2.16.840.1.411707.3.579.2. 1259 1969 Unknown [id number] 2.16.840.1.740032.3.579.2. 1258 1969 Unknown [id number] 2.16.840.1.159998.3.579.2. 1258 1969 Unknown [id number] 2.16.840.1.150614.3.579.2. 1258 1969 Unknown [id number] 2.16.840.1.184469.3.579.2. 1258 1969 Unknown [id number] 2.16.840.1.058922.3.579.2. 1258 1969 Unknown [id number] 2.16.840.1.683517.3.579.2. 1258 1969 Unknown [id number] 2..840.1.966594.3.579.2. 1258 1969 Unknown [id number] 2.16.840.1.567362.3.579.2. 1258 1969 Unknown [id number] 2.16.840.1.511056.3.579.2. 1258 1969 Unknown [id number] 2.16.840.1.556564.3.579.2. 1258 1969 Unknown [id number] 2..840.1.211082.3.579.2. 1258 1969 Unknown [id number] 2.16.840.1.497873.3.579.2. 1258 1969 Unknown [id number] 2.16.840.1.911345.3.579.2. 1258 1969 Unknown [id number] 2.16.840.1.112204.3.579.2. 1286 1959 Unknown [id number] 2.16.840.1.304181.19 1959 Unknown [id number] Unknown [id number] 2.16.840.1.173270.3.579.2. 531 Social History Date Type Detail Facility Start: 01-10-2022 End: 07-27-2023 Tobacco smoking status NHIS Never smoked tobacco [facility] Start: 01-10-2022 End: 07-27-2023 Tobacco use [...] to any clubs or organizations such as restorationist groups, unions, fraternal or athletic groups, or [...] [facility] Start: 09-20-2024 Sex Female (finding) [facility] Start: 1970 Sex Assigned At Female [facility] Medical Equipment Procedure Code Equipment Code Equipment Origin al Text Equipment Identifier Dates TEST ONCE DAILY [id number] Start: 02-15-2024 Clinical Notes 09-10-2021 to 01-01-2025 Darius Hastings MD - 01/01/2025 4:36 PM ESTTelephone Encounter - Peri Sandoval, [employer] - 12/19/2024 7:59 AM ESTTelephone Encounter - Peri Sandoval, WILBERTO - 12/19/2024 7:59 AM EST Note Date & Type Note Facility 01-01-2025 History of Presen t illness Narrative Darius Hastings MD ECHOCARDIOGRAM REPORT [facility] PATIENT Lu Cancino :1970 AGE:[age] year old INDICATION: R06.02 DATE: January 01, 2025 TECH:Nusrat Bryant, [facility] Ht 157.5 cm (5' 2 ) Wt 122.5 kg (270 lb) BMI 49.38 kg/m REFERRING PHYSICIAN: Darius Hastings M.D. COMMENTS: M-MODE MEASUREMENTS CM LVID END DIASTOLE: 5.50 (3.5-5.7) LVID END SYSTOLE: 4.90 (1.5-3.9) % FRAC. SHORTENIN (28-44%) EJECTION FRACTION: Visual estimate 45-50% RIGHT VENTRICLE: 3.70 (0.9-2.6) IV SEPTUM: 0.70 (0.6-1.1) LV POSTERIOR WALL: 0.50 (0.6-1.1) LEFT ATRIUM: 4.40 (1.9-4.0) AORTIC ROOT: 2.90 (2.0-3.7) AORTIC CUSP: 2.30 (1.5-2.6) SHUNTS: No PERICARDIAL EFFUSION: No AORTIC VALVE PEAK VELOCITY: 1.18m/s INSUFF: LVOT: 2.00cm PULMONIC VALVE PEAK VELOCITY: 1.08m/s MITRAL VALVE PEAK VELOCITY: 0.86m/s MR: TRICUSPID VALVE PEAK VELOCITY: 0.50m/s RVSP: 13.53mmhg TR: 0.94m/s IMPRESSIONS: TECHNICAL QUALITY: Poor cardiac windows LEFT VENTRICLE: Overall mildly reduced LV systolic function; estimated EF 45 %. The LV is normal in thickness and mildly dilated. There is normal diastolic function. RIGHT VENTRICLE: Overall normal in dimension and normal in thickness. There is normal right ventricular contractility. RVSP 13 mm HG LEFT ATRIUM: Mildly dilated. RIGHT ATRIUM: Normal in size. AORTA: Aortic root is normal, AORTIC VALVE: Valve is normal and tricuspid. There is normal mobility. No vegetations are seen . Doppler systolic flow pattern is normal and there is no regurgitation noted. MITRAL VALVE: Valve is normal with normal mobility. No vegetations are seen. Doppler diastolic flow pattern is normal. There is mild regurgitation. TRICUSPID VALVE: Valve is well visualized and is normal. Doppler diastolic flow pattern is normal and there is mild regurgitation. PULMONIC VALVE: Valve is well visualized and is normal. There is no regurgitation noted. PERICARDIUM: There is no pericardial effusion. IVC: Normal with respiratory variation. SUMMARY: Overall mildly reduced left ventricular systolic function with an estimated ejection fraction of 45 %. The left ventricle is normal in thickness and mildly dilated. Color Flow Doppler interrogation reveals mild MR mild TR. CHF Darius Hastings M.D., [facility] #: [phone] [place] #: [phone] documented in this encounter [facility] 12-19-2024 Telephone encount er Note Sent patient mychart message no restrictions for injections. Also what date she will return to work [facility] 12-19-2024 Miscellaneous Notes Formattin g of this note might be different from the original. Sent patient mychart message no restrictions for injections. Also what date she will return to work Patient had to reschedule her injections from 01/01/2025 to 01/27/2025. Patient is wanting to know if after the injections if she can oyster picker her granddaughter. States that she is 1 yr old. Also she states that her current off work letter ran out 12/03/2024. 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 Wanting to know if this can be extended. Please advise. [phone] documented in this encounter [facility] 12-18-2024 Telephone encount er Note Patient had to reschedule her injections from 01/01/2025 to 01/27/2025. Patient is wanting to know if after the injections if she can oyster picker her granddaughter. States that she is 1 yr old. Also she states that her current off work letter ran out 12/03/2024. 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 Wanting to know if this can be extended. Please advise. [phone] [facility] 10-28-2024 History of Presen t illness Narrative [...] the original note were not included. Lu Cacnino is a 53 y.o. female presents with [...] Gelatin Capsules, Empty, (Empty Capsule Size 3 Greene/Clr) capsule glucose blood (True Metrix Blood Glucose [...] COVID-19 02/05/2024 Alcohol abuse Anxiety and depression ([facility]) Asthma ([facility]) 11/28/2023 Cardiomegaly 02/05/2024 Cervical stenosis (uterine cervix) 02/05/2024 COVID-19 long hauler 02/05/2024 Elevated antinuclear antibody (MALINI) level 02/05/2024 Fatigue 02/05/2024 Fatty liver 02/05/2024 PELON (generalized anxiety disorder) ([facility]) 09/26/2023 Gallbladder sludge Gout, arthritis 02/05/2024 Heart attack ([facility]) Hip pain, chronic, left Kidney stone Lower extremity edema 02/05/2024 FELICE (obstructive sleep apnea) 02/05/2024 Osteoarthritis of right thumb Ovarian cyst 02/05/2024 Paresthesia of both hands Pre-diabetes Suicide attempt ([facility]) 02/05/2024 Trigger ring finger of right hand [...] Current med: pantoprazole documented in this encounter [facility] 09-02-2024 Telephone encount er Note Spoke with patient regarding her most recent [employer] message to Dr Lorenzana. She is having [...] 1:15pm to discuss further with Dr. Lorenzana [facility] 09-02-2024 Miscellaneous Notes Formattin g of this note might be different from the original. Spoke with patient regarding her most recent [employer] message to Dr Lorenzana. She is having [...] with Dr. Lorenzana documented in this encounter [facility] 08-07-2024 History of Presen t illness Narrative Associated Problem(s): PELON (generalized anxiety disorder) ([facility]) Continue with fluoxetine, however does not want [...] Gelatin Capsules, Empty, (Empty Capsule Size 3 Greene/Clr) capsule glucose blood (True Metrix Blood Glucose [...] Fatty liver 02/05/2024 PELON (generalized anxiety disorder) ([facility]/HCC) 09/26/2023 Gallbladder sludge Gout, arthritis 02/05/2024 Heart attack ([facility]) Hip pain, chronic, left Kidney stone Lower extremity edema 02/05/2024 FELICE (obstructive sleep apnea) 02/05/2024 Osteoarthritis of right thumb Ovarian cyst 02/05/2024 Paresthesia of both hands Pre-diabetes Suicide attempt ([facility]) 02/05/2024 Trigger ring finger of right hand [...] at this time documented in this encounter [facility] 07-10-2024 History of Presen t illness Narrative [...] Gelatin Capsules, Empty, (Empty Capsule Size 3 Greene/Clr) capsule glucose blood (True Metrix Blood Glucose [...] disorder, most recent episode major depressive (CMS/HCC) 03/14/2019 Chondromalacia of patella, left 09/26/2023 Edema of lower extremity 03/14/2019 Essential hypertension ([facility]) 03/14/2019 Gastroesophageal reflux disease 03/14/2019 Lesion of cervix 03/14/2019 Morbid obesity ([facility]) 03/14/2019 Multiple joint pain 03/14/2019 Osteoarthritis of carpometacarpal (CMC) joint of thumb 03/14/2019 Fibromyalgia 09/26/2023 Pain in left knee 09/26/2023 Prediabetes 03/14/2019 Tear of medial meniscus of left knee, current 03/14/2019 Myalgia 09/28/2023 Numbness and tingling 09/28/2023 Weakness 09/28/2023 Idiopathic progressive neuropathy 09/28/2023 Lumbar radiculopathy 11/23/2023 Asthma ([facility]) 11/28/2023 COVID-19 philippe valdovinos manifesting chronic dyspnea 12/21/2023 FELICE (obstructive sleep apnea) 02/05/2024 Elevated antinuclear antibody (MALINI) level 02/05/2024 Ovarian cyst 02/05/2024 Fatty liver 02/05/2024 Cardiomegaly 02/05/2024 Cervical stenosis (uterine cervix) 02/05/2024 Lower extremity edema 02/05/2024 Fatigue 02/05/2024 PELON (generalized anxiety disorder) ([facility]) 09/26/2023 COVID-19 philippe halola 02/05/2024 Encounter for screening mammogram for malignant neoplasm of breast 05/09/2024 Vitamin deficiency 05/09/2024 Pap smear for cervical cancer screening 05/09/2024 Resolved Ambulatory Problems Diagnosis Date Noted At low risk for fall 03/14/2019 Suicide attempt ([facility]) 02/05/2024 Acute COVID-19 02/05/2024 Pap smear of cervix not needed 05/09/2024 Past Medical History: Diagnosis Date Alcohol abuse Anxiety and depression ([facility]) Gallbladder sludge Gout, arthritis 02/05/2024 Heart attack ([facility]) Hip pain, chronic, left Kidney stone Osteoarthritis of right thumb Paresthesia of both hands Pre-diabetes Trigger ring finger of right hand HISTORY PAST MEDICAL HISTORY SOCIAL HISTORY Past Medical History: Diagnosis Date Acute COVID-19 02/05/2024 Alcohol abuse Anxiety and depression ([facility]) Asthma ([facility]) 11/28/2023 Cardiomegaly 02/05/2024 Cervical stenosis (uterine cervix) 02/05/2024 COVID-19 long hauler 02/05/2024 Elevated antinuclear antibody (MALINI) level 02/05/2024 Fatigue 02/05/2024 Fatty liver 02/05/2024 PELON (generalized anxiety disorder) ([facility]) 09/26/2023 Gallbladder sludge Gout, arthritis 02/05/2024 Heart attack ([facility]) Hip pain, chronic, left Kidney stone Lower extremity edema 02/05/2024 FELICE (obstructive sleep apnea) 02/05/2024 Osteoarthritis of right thumb Ovarian cyst 02/05/2024 Paresthesia of both hands Pre-diabetes Suicide attempt ([facility]) 02/05/2024 Trigger ring finger of right hand [...] nursing note reviewed. Exam conducted with a atomic physics teacher present. Vitals: Estimated body mass index is 49.2 kg/m as calculated from the following: Height as of 06/13/24: 5' 2 . Weight as of this encounter: 269 lb. BP: 122/74 No LMP recorded (lmp unknown). Patient is postmenopausal. ASSESSMENT & PLAN ICD-10-CM 1. Well woman exam with routine gynecological exam Z01.419 THIN PREP TIS PAP AND HR HPV DNA 2. 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 Pt has no issues and had her mammogram done a month ago. Pap smear was preformed and collected by Jackie Hernandez. Documented by Kristen Slaughter MA on behalf of: KARTHIKEYAN Flores documented in this encounter [facility] 12-15-2023 History of Presen t illness Narrative [...] and exhibiting a general state of irritability. 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 documented in this encounter [facility] 08-26-2023 Evaluation note Encounter Date Diagnosis Assessment Notes Aug, Left sided sciatica (ICD-10 - M54.32) Drink plenty fluids, get plenty of rest. Continue home medications as prescribed. Take the prednisone as prescribed until gone. Limit your lifting and bending for the next few days. Follow-up with your family physician next week for recheck. [facility] Other 07-11-2023 NoteSubjective Patient ID: Lu Cancino [...] she was taking vitamin supplementation and Body Vader energy drinks, but that she had been [...] about 6 months (around 11/23/2023). Yimi Catalan, [facility] History of Present illness Narrative* Kvng Aidangamaldemarcus, BRIDGE REPAIR CREW PERSON-[employer]IC FANS MECHANIC - 07/05/2022 1:13 PM EDT Images from the original note were not included. Documentation: Mode: Telephone Patient Patient Work Phone: Patient Cell Preferred phone: [phone] Consent: I confirmed patient understanding of the risks and benefits of telehealth visits and obtained consent to proceed with the telehealth visit. Location of Patient: Home of patient Post Covid Follow Up Telemedicine Visit Note: CC: f/u of [id number] condition Recall: Lu Cancino is a 51 [...] Also has neuropathy Patient still resides near [place], [place] PMH/PSH: Reviewed 07/05/22 Allergies: Per list, [...] Post Covid Nurse Practitioner documented in this [id number] Evaluation note* Encounter Date Diagnosis Assessment Notes [...] understanding and is agreeable to treatment plan [facility] 05-12-2022 History of Present illness Narrative* Lucía Calderon APRN-CNP - 03/24/2022 10:03 AM EDT Images from the original note were not included. Documentation: Mode: Telephone Patient Patient Work Phone: Patient Cell Preferred phone: [phone] Consent: I confirmed patient understanding of the risks and benefits of telehealth visits and obtained consent to proceed with the telehealth visit. Location of Patient: Home of patient Post Covid Follow Up Telemedicine Visit Note: CC: f/u of [id number] condition Recall: Lu Cancino is a 51 [...] Post Covid Nurse Practitioner documented in this [id number] Evaluation note* Encounter Date Diagnosis Assessment Notes [...] Patient care instructions given in writting by [facility] document. Additional time spent conducting pre-visit phone call, screening for symptoms, instructions on social distancing, application and removal of PPE, and cleaning of examination room, equipment and supplies was preformed. Patient education given for testing methodology and results. Patient care instructions given in writting by [facility] document. [facility] Other Evaluation note* Diagnosis Shortness of breath- Primary [id number] condition [facility] Diagnosis Chest pain, unspecified type- Primary [id number] condition [facility]* [...] Other bipolar disorders PELON (generalized anxiety disorder) ([facility]) Generalized anxiety disorder Screening for [...] hypertension (CMS/HCC) Unspecified essential hypertension Morbid obesity ([facility]) Morbid obesity PELON (generalized anxiety disorder) [facility] [facility] Generalized anxiety disorder Bipolar II disorder, [...] Other bipolar disorders PELON (generalized anxiety disorder) ([facility]) Generalized anxiety disorder Screening for colon cancer Special screening for malignant neoplasms, colon Gastroesophageal reflux disease, unspecified whether esophagitis present documented in this encounter [facility]* Diagnosis Essential hypertension (CMS/HCC)- Primary Unspecified essential hypertension Morbid obesity (CMS/HCC) Morbid obesity Anxiety Anxiety state, unspecified Unspecified mood (affective) disorder ([facility]) Encounter for screening mammogram for malignant [...] of lower extremity documented in this encounter [facility] HealthcareEvaluation noteNo assessment information [facility] Work [facility]: Evaluation note* Diagnosis Essential [...] Obstructive sleep apnea (adult) (pediatric) Essential hypertension ([facility]) Unspecified essential hypertension Fibromyalgia Unspecified myalgia and myositis Edema of lower extremity Morbid obesity ([facility]/HCC) Morbid obesity Bipolar II disorder, most recent episode major depressive ([facility]/HCC) Other bipolar disorders PELON (generalized anxiety disorder) ([facility]) Generalized anxiety disorder Screening for colon cancer Special screening for malignant neoplasms, colon Other chest pain- Primary Gastroesophageal reflux disease, unspecified whether esophagitis present Idiopathic progressive neuropathy FELICE (obstructive sleep apnea) Obstructive sleep apnea (adult) (pediatric) Edema of lower extremity Morbid obesity ([facility]/HCC) Morbid obesity Prediabetes Other abnormal glucose Fibromyalgia Unspecified myalgia and myositis Bipolar II disorder, most recent episode major depressive ([facility]) Other bipolar disorders Vitamin deficiency Unspecified vitamin [...] gynecological exam Routine gynecological examination Osteoporosis, post-menopausal ([facility]) Senile osteoporosis documented in this encounter [facility]* Diagnosis Prediabetes- Primary Other abnormal glucose FELICE (obstructive sleep apnea) Obstructive sleep apnea (adult) (pediatric) Essential hypertension ([facility]) Unspecified essential hypertension Fibromyalgia Unspecified myalgia and myositis Edema of lower extremity Morbid obesity ([facility]) Morbid obesity Bipolar II disorder, most recent episode major depressive ([facility]) Other bipolar disorders PELON (generalized anxiety disorder) ([facility]) Generalized anxiety disorder Screening for colon cancer Special screening for malignant neoplasms, colon documented in [facility]* Diagnosis Dental infection- Primary documented in this [facility]* Diagnosis Essential hypertension ([facility])- Primary Unspecified essential hypertension Morbid obesity ([facility]) Morbid obesity Anxiety Anxiety state, unspecified Unspecified mood (affective) disorder ([facility]) Encounter for screening mammogram for malignant neoplasm of breast- Primary Essential hypertension ([facility]) Unspecified essential hypertension Gout, arthritis Gouty arthropathy, [...] extremity documented in this encounter [facility]* [...] (CMS/HCC) Morbid obesity PELON (generalized anxiety disorder) ([facility]) Generalized anxiety disorder Bipolar II disorder, most recent episode major depressive ([facility]) Other bipolar disorders Prediabetes- Primary Other abnormal glucose FELICE (obstructive sleep apnea) Obstructive sleep apnea (adult) (pediatric) Essential hypertension ([facility]/HCC) Unspecified essential hypertension Fibromyalgia Unspecified myalgia and myositis Edema of lower extremity Morbid obesity ([facility]/HCC) Morbid obesity Bipolar II disorder, most recent episode major depressive ([facility]) Other bipolar disorders PELON (generalized anxiety disorder) ([facility]) Generalized anxiety disorder Screening for colon cancer Special screening for malignant neoplasms, colon Other chest pain- Primary Gastroesophageal reflux disease, unspecified whether esophagitis present Idiopathic progressive neuropathy FELICE (obstructive sleep apnea) Obstructive sleep apnea (adult) (pediatric) Edema of lower extremity Morbid obesity ([facility]) Morbid obesity Prediabetes Other abnormal glucose Fibromyalgia Unspecified myalgia and myositis Bipolar II disorder, most recent episode major depressive ([facility]) Other bipolar disorders Vitamin deficiency Unspecified vitamin deficiency Chronic dental infection Chronic periodontitis, unspecified Fibromyalgia- Primary Unspecified myalgia and myositis documented in this encounter [facility] HealthcareEvaluation note* Diagnosis Essential hypertension ([facility])- Primary Unspecified essential hypertension Morbid obesity ([facility]) Morbid obesity Anxiety Anxiety state, unspecified Unspecified mood (affective) disorder ([facility]) Encounter for screening mammogram for malignant neoplasm of breast- Primary Essential hypertension ([facility]) Unspecified essential hypertension Gout, arthritis Gouty arthropathy, unspecified Edema of lower extremity Prediabetes Other abnormal glucose Vitamin deficiency Unspecified vitamin deficiency Morbid obesity ([facility]) Morbid obesity Multiple joint pain Pain in joint, multiple sites Pap smear for cervical cancer screening Screening for malignant neoplasm of the cervix Fibromyalgia- Primary Unspecified myalgia and myositis FELICE (obstructive sleep apnea) Obstructive sleep apnea (adult) (pediatric) COVID-19 long hauler manifesting chronic dyspnea Essential hypertension ([facility]) Unspecified essential hypertension Morbid obesity ([facility]) Morbid obesity PELON (generalized anxiety disorder) ([facility]) Generalized anxiety disorder Bipolar II disorder, most recent episode major depressive ([facility]) Other bipolar disorders Prediabetes- Primary Other abnormal glucose FELICE (obstructive sleep apnea) Obstructive sleep apnea (adult) (pediatric) Essential hypertension ([facility]) Unspecified essential hypertension Fibromyalgia Unspecified myalgia and myositis Edema of lower extremity Morbid obesity (CMS/HCC) Morbid obesity Bipolar II disorder, most recent episode major depressive ([facility]/HCC) Other bipolar disorders PELON (generalized anxiety disorder) ([facility]) Generalized anxiety disorder Screening for colon cancer Special screening for malignant neoplasms, colon Other chest pain- Primary Gastroesophageal reflux disease, unspecified whether esophagitis present Idiopathic progressive neuropathy FELICE (obstructive sleep apnea) Obstructive sleep apnea (adult) (pediatric) Edema of lower extremity Morbid obesity ([facility]/HCC) Morbid obesity Prediabetes Other abnormal glucose Fibromyalgia Unspecified myalgia and myositis Bipolar II disorder, most recent episode major depressive ([facility]) Other bipolar disorders Vitamin deficiency Unspecified vitamin deficiency Chronic dental infection Chronic periodontitis, unspecified Idiopathic progressive neuropathy documented in this encounter [facility] HealthcareEvaluation note* Diagnosis Essential hypertension ([facility])- Primary Unspecified essential hypertension Morbid obesity ([facility]) Morbid obesity Anxiety Anxiety state, unspecified Unspecified mood (affective) disorder ([facility]) Encounter for screening mammogram for malignant neoplasm of breast- Primary Essential hypertension ([facility]) Unspecified essential hypertension Gout, arthritis Gouty arthropathy, unspecified Edema of lower extremity Prediabetes Other abnormal glucose Vitamin deficiency Unspecified vitamin deficiency Morbid obesity ([facility]) Morbid obesity Multiple joint pain Pain in joint, multiple sites Pap smear for cervical cancer screening Screening for malignant neoplasm of the cervix Fibromyalgia- Primary Unspecified myalgia and myositis FELICE (obstructive sleep apnea) Obstructive sleep apnea (adult) (pediatric) COVID-19 long hauler manifesting chronic dyspnea Essential hypertension ([facility]/HCC) Unspecified essential hypertension Morbid obesity ([facility]) Morbid obesity PELON (generalized anxiety disorder) ([facility]) Generalized anxiety disorder Bipolar II disorder, most recent episode major depressive ([facility]) Other bipolar disorders Prediabetes- Primary Other abnormal glucose FELICE (obstructive sleep apnea) Obstructive sleep apnea (adult) (pediatric) Essential hypertension (CMS/HCC) Unspecified essential hypertension Fibromyalgia Unspecified myalgia and myositis Edema of lower extremity Morbid obesity ([facility]/HCC) Morbid obesity Bipolar II disorder, most recent episode major depressive ([facility]) Other bipolar disorders PELON (generalized anxiety disorder) ([facility]) Generalized anxiety disorder Screening for colon cancer Special screening for malignant neoplasms, colon Other chest pain- Primary Gastroesophageal reflux disease, unspecified whether esophagitis present Idiopathic progressive neuropathy FELICE (obstructive sleep apnea) Obstructive sleep apnea (adult) (pediatric) Edema of lower extremity Morbid obesity (CMS/HCC) Morbid obesity Prediabetes Other abnormal glucose Fibromyalgia Unspecified myalgia and myositis Bipolar II disorder, most recent episode major depressive ([facility]/HCC) Other bipolar disorders Vitamin deficiency Unspecified vitamin deficiency Chronic dental infection Chronic periodontitis, unspecified Gastroesophageal reflux disease, unspecified whether esophagitis present documented in this encounter [facility]* Diagnosis Essential hypertension ([facility])- Primary Unspecified essential hypertension Morbid obesity ([facility]/HCC) Morbid obesity Anxiety Anxiety state, unspecified Unspecified mood (affective) disorder ([facility]) Encounter for screening mammogram for malignant neoplasm of breast- Primary Essential hypertension ([facility]) Unspecified essential hypertension Gout, arthritis Gouty arthropathy, unspecified Edema of lower extremity Prediabetes Other abnormal glucose Vitamin deficiency Unspecified vitamin deficiency Morbid obesity ([facility]) Morbid obesity Multiple joint pain Pain in joint, multiple sites Pap smear for cervical cancer screening Screening for malignant neoplasm of the cervix Fibromyalgia- Primary Unspecified myalgia and myositis FELICE (obstructive sleep apnea) Obstructive sleep apnea (adult) (pediatric) COVID-19 long hauler manifesting chronic dyspnea Essential hypertension ([facility]/HCC) Unspecified essential hypertension Morbid obesity ([facility]) Morbid obesity PELON (generalized anxiety disorder) ([facility]) Generalized anxiety disorder Bipolar II disorder, most recent episode major depressive ([facility]) Other bipolar disorders Prediabetes- Primary Other abnormal glucose FELICE (obstructive sleep apnea) Obstructive sleep apnea (adult) (pediatric) Essential hypertension ([facility]/HCC) Unspecified essential hypertension Fibromyalgia Unspecified myalgia and myositis Edema of lower extremity Morbid obesity ([facility]/HCC) Morbid obesity Bipolar II disorder, most recent episode major depressive ([facility]/HCC) Other bipolar disorders PELON (generalized anxiety disorder) ([facility]) Generalized anxiety disorder Screening for colon cancer Special screening for malignant neoplasms, colon Other chest pain- Primary Gastroesophageal reflux disease, unspecified whether esophagitis present Idiopathic progressive neuropathy FELICE (obstructive sleep apnea) Obstructive sleep apnea (adult) (pediatric) Edema of lower extremity Morbid obesity ([facility]/HCC) Morbid obesity Prediabetes Other abnormal glucose Fibromyalgia [...] Anxiety state, unspecified Unspecified mood (affective) disorder ([facility]) Encounter for screening mammogram for malignant [...] hypertension (CMS/HCC) Unspecified essential hypertension Morbid obesity ([facility]/HCC) Morbid obesity PELON (generalized anxiety disorder) ([facility]) Generalized anxiety disorder Bipolar II disorder, most recent episode major depressive (CMS/HCC) Other bipolar disorders Prediabetes- Primary Other abnormal glucose FELICE (obstructive sleep apnea) Obstructive sleep apnea (adult) (pediatric) Essential hypertension (CMS/HCC) Unspecified essential hypertension Fibromyalgia Unspecified myalgia and myositis Edema of lower extremity Morbid obesity (CMS/HCC) Morbid obesity Bipolar II disorder, most recent episode major depressive ([facility]/HCC) Other bipolar disorders PELON (generalized anxiety disorder) ([facility]) Generalized anxiety disorder Screening for colon cancer Special screening for malignant neoplasms, colon Other chest pain- Primary Gastroesophageal reflux disease, unspecified whether esophagitis present Idiopathic progressive neuropathy FELICE (obstructive sleep apnea) Obstructive sleep apnea (adult) (pediatric) Edema of lower extremity Morbid obesity ([facility]/HCC) Morbid obesity Prediabetes Other abnormal glucose Fibromyalgia Unspecified myalgia and myositis Bipolar II disorder, most recent episode major depressive ([facility]/HCC) Other bipolar disorders Vitamin deficiency Unspecified vitamin deficiency Chronic dental infection Chronic periodontitis, unspecified Vitamin deficiency- Primary Unspecified vitamin deficiency documented in this encounter [facility]Evaluation note* Diagnosis Acute on chronic systolic congestive heart failure (HCC)- Primary Acute on chronic systolic heart failure documented in this encounter [facility] general Narrative - Reported* Type Description Date Medical History Seasonal Allergies Medical History rheumatoid arthritis Surgical History C section X2 Hospitalization History see above Lotus Tissue Repair Other History general Narrative - Reported* Type Description Date Medical History Seasonal Allergies Medical History rheumatoid arthritis Medical History neuropathy Surgical History C section X2 Hospitalization History Covid 2021 [facility] Other Summary Purpose Family History Relationship Condition [...] and content) DATE CREATED AUTHOR 04/18/2019 [facility] DATE CREATED AUTHOR AUTHOR'S ORGANIZ ATION 12/17/2022 [facility] DATE CREATED AUTHOR AUTHOR'S ORGANIZ ATION 03/24/2023 [facility] DATE CREATED AUTHOR AUTHOR'S ORGANIZ ATION 04/21/2023 [facility] [employer] [facility] DATE CREATED AUTHOR AUTHOR'S ORGANIZ ATION 05/25/2023 [facility] DATE CREATED AUTHOR AUTHOR'S ORGANIZ ATION 10/30/2024 [facility] EP[facility] DATE CREATED AUTHOR AUTHOR'S ORGANIZ ATION 12/14/2024 [facility] Reason for Visit (unrecogniz ed section and [...] Pap smear for cervical cancer screening Procedures RI OFFICE/OUTPATIENT NEW HIGH MDM 60 MINUTES Melani Deras NP [address] [place] [address] Jackie Hernandez PA [address] [place] [address] [place] [address] Referral ID Status Reason Start Date Expiration Date V isits Requested Visits Authorized [id number] Closed Specialty Services Required 05/09/2024 11/05/2024 1 1 Reason Onset Date Comments Med Refill 11/17/2024 Care Teams (unrecognized sec tion and content) Applied Biology Professor Relationship Specialty Start Date End Date Mahesh Rocha MD [address] [place] [id number] PCP - General Family Medicine 02/01/24 Melani Deras NP [address] [place] [address] Nurse Practitioner Family Medicine 02/01/24 Applied Biology Professor Relationship Specialty Start Date End Date Mahesh Rocha MD [address] [place] [address] PCP - General Family Medicine 02/01/24 Melani Deras NP [address] [place] [address] Nurse Practitioner Family Medicine 02/01/24 Applied Biology Professor Relationship Specialty Start Date End Date Mahesh Rocha MD [address] [place] [phone] PCP - General Family Medicine 02/01/24 Melani Deras NP [address] [place] [address] Nurse Practitioner Family Medicine 02/01/24 Applied Biology Professor Relationship Specialty Start Date End Date Mahesh Rocha MD [address] [place] [address] PCP - General Family Medicine 02/01/24 Melani Deras NP [address] [place] [address] Nurse Practitioner Family Medicine 02/01/24 Team Status: [...] September 20, 2024 End: September 20, 2024 Applied Biology Professor Relationship Specialty Start Date End Date Mahesh Rocha MD [address] [place] [phone] PCP - General Family Medicine 02/01/24 Melani Deras NP [address] [place] [address] Nurse Practitioner Family Medicine 02/01/24 Applied Biology Professor Relationship Specialty Start Date End Date Mahesh Rocha MD [address] [place] [phone] PCP - General Family Medicine 02/01/24 Melani Deras NP [address] [place] [address] Nurse Practitioner Family Medicine 02/01/24 Applied Biology Professor Relationship Specialty Start Date End Date Mahesh Rocha MD [address] [place] [phone] PCP - General Family Medicine 02/01/24 Melani Deras NP [address] [place] [address] Nurse Practitioner Family Medicine 02/01/24 Applied Biology Professor Relationship Specialty Start Date End Date Mahesh Rocha MD [address] [place] [address] PCP - General Family Medicine 02/01/24 Melani Deras NP [address] [place] [address] Nurse Practitioner Family Medicine 02/01/24 Applied Biology Professor Relationship Specialty Start Date End Date Mahesh Rocha MD [address] [place] [address] PCP - General Family Medicine 02/01/24 Melani Deras NP [address] [place] [address] Nurse Practitioner Family Medicine 02/01/24 Applied Biology Professor Relationship Specialty Start Date End Date Mahesh Rocha MD [address] [place] [address] PCP - General Family Medicine 02/01/24 Melani Deras NP [address] [place] [address] Nurse Practitioner Family Medicine 02/01/24 Applied Biology Professor Relationship Specialty Start Date End Date Mahesh Rocha MD [address] [place] [address] PCP - General Family Medicine 02/01/24 Melani Deras NP [address] [place] [address] Nurse Practitioner Family Medicine 02/01/24 Applied Biology Professor Relationship Specialty Start Date End Date Mahesh Rocha MD [address] [place] [address] PCP - General Family Medicine 02/01/24 Melani Deras NP [address] [place] [address] Nurse Practitioner Family Medicine 02/01/24 Applied Biology Professor Relationship Specialty Start Date End Date Mahesh Rocha MD [address] [place] [phone] PCP - General Family Medicine 02/01/24 Melani Deras NP [address] [place] [address] Nurse Practitioner Family Medicine 02/01/24 Applied Biology Professor Relationship Specialty Start Date End Date Mahesh Rocha MD [address] [place] [address] PCP - General Family Medicine 02/01/24 Melani Deras NP [address] [place] [address] Nurse Practitioner Family Medicine 02/01/24 Applied Biology Professor Relationship Specialty Start Date End Date Mahesh Rocha MD [address] [place] [address] PCP - General Family Medicine 02/01/24 Melani Deras NP [address] [place] [address] Nurse Practitioner Family Medicine 02/01/24 Applied Biology Professor Relationship Specialty Start Date End Date Mahesh Rocha MD [address] [place] [phone] PCP - General Family Medicine 02/01/24 Melani Deras NP [address] [place] [address] Nurse Practitioner Family Medicine 02/01/24 Applied Biology Professor Relationship Specialty Start Date End Date Mahesh Rocha MD [address] [place] [phone] PCP - General Family Medicine 02/01/24 Melani Deras NP [address] [place] [address] Nurse Practitioner Family Medicine 02/01/24 Applied Biology Professor Relationship Specialty Start Date End Date Silver Austin DO PCP - General Family Medicine 12/02/13 Goals (unrecognized section and content) Goals may be documented in a n alternate section Source Comments (unrecognize d section and content) In the event this informatio n is protected by the Federal Confidentiality of Alcohol and Drug Abuse Patient Records regulations: The Federal rules restrict any use of the information to criminally investigate or prosecute any alcohol or drug abuse patient.[facility] FOR RECORDS PERTAINING TO PATIENTS WHO ARE [...] BE BASED ON THE PRIMARY CLINICAL RECORDS. [employer] [facility]. provides no warranty or guarantee of the accuracy or completeness of information in this document.
--- NOTE | 2025-01-08 17:56 | ED.DENTAL1 ---
HPI - Dental/Oral General Chief complaint: Dental/Oral Stated complaint: oral pain Time Seen by Provider: 01/08/25 17:31 Source: patient Mode of arrival: walk-in Limitations: no limitations History of Present Illness HPI Narrative: Patient is a 54-year-old female who presents to the emergency department for facial pain and swelling. She states she had all the teeth removed in her maxilla 3 weeks ago. She states over the last several days she has had an increase in pressure in the sinuses, facial swelling. She is concerned she has an infection. There has been no drainage inside the mouth. No fevers or vomiting. She feels as though her sinuses are stuffed up. No medications prior to arrival. Related Data Home Medications ?Medication ?Instructions ?Recorded ?Confirmed fluoxetine 40 mg capsule 40 mg PO DAILY 05/15/23 12/01/24 furosemide 20 mg tablet 10 mg PO DAILY 05/15/23 12/01/24 gabapentin 100 mg capsule 300 mg PO QPM 05/15/23 12/01/24 nabumetone 500 mg tablet 500 mg PO BID 05/15/23 12/01/24 pantoprazole 40 mg tablet,delayed 40 mg PO DAILY 05/15/23 12/01/24 release magnesium oxide 400 mg (241.3 mg 400 mg PO QPM 06/16/24 12/01/24 magnesium) tablet modafinil 100 mg tablet (Provigil) 100 mg PO DAILY 06/16/24 10/23/24 montelukast 10 mg tablet 10 mg PO QPM 06/16/24 12/01/24 naltrexone 1.5 mg capsule 4 mg PO DAILY 06/16/24 12/01/24 aspirin 81 mg tablet,delayed 81 mg PO DAILY 10/23/24 12/01/24 release Previous Rx's ?Medication ?Instructions ?Recorded nystatin 100,000 unit/gram topical 1 applic topical BID 2 weeks #30 10/15/24 powder grams albuterol sulfate 90 mcg/actuation 2 inh inhalation Q4H PRN shortness 12/02/24 aerosol inhaler of breath or wheezing #8.5 grams benzonatate 200 mg capsule 200 mg PO TID PRN cough #14 caps 12/02/24 prednisone 10 mg tablet 10 mg PO DAILY bronchitis and 12/02/24 asthma #30 tabs amoxicillin 875 mg-potassium 1 tab PO Q12H #20 tabs 01/08/25 clavulanate 125 mg tablet [id number]-[id number]-FD 10 ml PO Q6H PRN cold symptoms 01/08/25 2 mg-30 mg-10 mg/5 mL oral syrup #100 mL (Bromfed DM) ketorolac 10 mg tablet 10 mg PO TID PRN pain #10 tabs 01/08/25 ondansetron 4 mg disintegrating 4 mg PO Q6H PRN nausea and 01/08/25 tablet vomiting #12 tabs Allergies Allergy/AdvReac Type Severity Reaction Status Date / Time influenza A (H1N1) virus Allergy Severe Anaphylaxis Verified 12/01/24 22:29 vaccine [id number] 2008 (From influenza A (H1N1)) Tetanus Vaccines and Toxoid Allergy Severe Anaphylaxis Verified 12/01/24 22:29 Review of Systems ROS Constitutional Denies: fever or chills Ears, nose, mouth, and throat Reports: mouth pain; Denies: throat pain Cardiovascular Denies: chest pain Respiratory Denies: shortness of breath or cough Gastrointestinal Denies: nausea or vomiting Musculoskeletal Denies: back pain Integumentary/Breast Denies: rash Neurological Reports: headache Hematologic/Lymphatic Denies: easy bruising or easy bleeding [facility] Social History Smoking status: Never smoker Little interest or pleasure in doing things: not at all Feeling down, depressed, or hopeless: not at all Exam Narrative Exam Narrative: Gen.: Awake, alert, in no distress Head: Normocephalic, atraumatic ENT: Moist mucous membranes, mild bilateral symmetric facial edema with no open wounds or fluctuant abscess. No facial induration. No periorbital edema. All teeth are surgically absent in the maxilla, no visible drainage or abscess noted. No redness or swelling under the tongue. Airway widely open and patent. Respiratory: No respiratory distress Extremities: Moves extremities equally Psych: Normal mood and affect Neuro: No focal neuro deficit Skin: Warm, dry, intact Constitutional Vital Signs, click to edit/add: Last Vital Signs Temp 98.2 F 01/08/25 17:39 Pulse 65 01/08/25 17:39 Resp 18 01/08/25 17:39 BP 158/73 H 01/08/25 17:39 Pulse Ox 98 01/08/25 17:39 O2 Del Method Room Air 01/08/25 17:39 Course Vital Signs Vital signs: Vital Signs Temperature 98.2 F 01/08/25 17:39 Pulse Rate 65 01/08/25 17:39 Respiratory Rate 18 01/08/25 17:39 Blood Pressure 158/73 H 01/08/25 17:39 Pulse Oximetry 98 01/08/25 17:39 Oxygen Delivery Method Room Air 01/08/25 17:39 Temperature 98.2 F 01/08/25 17:39 Pulse Rate 65 01/08/25 17:39 Respiratory Rate 18 01/08/25 17:39 Blood Pressure 158/73 H 01/08/25 17:39 Pulse Oximetry 98 01/08/25 17:39 Oxygen Delivery Method Room Air 01/08/25 17:39 MDM - Dental/Oral MDM Narrative Medical decision making narrative: Patient given dental analgesia as this may improve her symptoms, she is placed on Augmentin for both sinus coverage and dental coverage and was given Bromfed-DM for sinus drainage. Suspect her symptoms may be more related to sinus infection, however Augmentin will cover the teeth and she should follow-up with her dentist to evaluate healing of the area. Return to the ER if symptoms change or worsen SUPERVISED APC VISIT, PHYSICIAN ATTESTATION: Based on the medical record the care appears appropriate. ? Medical Records Attestation: I reviewed the patient's medical records. Discharge Plan Discharge Chief Complaint: Dental/Oral Clinical Impression: Acute facial pain Patient Disposition: Home, Self-Care Time of Disposition Decision: 17:52 Condition: Good Prescriptions / Home Meds: New fhpqjclboyptfxl-mhshkdncm-ZP [Bromfed DM] 2-30-10 mg/5 mL syrup 10 ml PO Q6H PRN (Reason: cold symptoms) Qty: 100 0RF amoxicillin-pot clavulanate 875-125 mg tablet 1 tab PO Q12H Qty: 20 0RF ketorolac 10 mg tablet 10 mg PO TID PRN (Reason: pain) Qty: 10 0RF Rx Instructions: Do not take with other NSAIDs ondansetron 4 mg tablet,disintegrating 4 mg PO Q6H PRN (Reason: nausea and vomiting) Qty: 12 0RF No Action fluoxetine 40 mg capsule 40 mg PO DAILY pantoprazole 40 mg tablet,delayed release (DR/EC) 40 mg PO DAILY furosemide 20 mg tablet 10 mg PO DAILY gabapentin 100 mg capsule 300 mg PO QPM Rx Instructions: 100 am and 200mg at HS nabumetone 500 mg tablet 500 mg PO BID nystatin 100,000 unit/gram powder 1 applic topical BID 14 Days Qty: 30 0RF aspirin 81 mg tablet,delayed release (DR/EC) 81 mg PO DAILY prednisone 10 mg tablet 10 mg PO DAILY Qty: 30 0RF Rx Instructions: 4 tabs x 3 days, 3 tabs x 3 days, 2 tabs x 3 days, 1 tab x 3 days albuterol sulfate 90 mcg/actuation HFA aerosol inhaler 2 inh inhalation Q4H PRN (Reason: shortness of breath or wheezing) Qty: 8.5 0RF benzonatate 200 mg capsule 200 mg PO TID PRN (Reason: cough) Qty: 14 0RF modafinil [Provigil] 100 mg tablet 100 mg PO DAILY magnesium oxide 400 mg (241.3 mg magnesium) tablet 400 mg PO QPM montelukast 10 mg tablet 10 mg PO QPM naltrexone 1.5 mg capsule 4 mg PO DAILY Print Language: Yoruba Instructions: Atypical Facial Pain (ED) Additional Instructions: Take ketorolac in place of your nabumatone for the next 3 days Referrals: Melani Deras NP [Primary Care Provider] - 1 week
[2025-01-08] MEDS: BENZOCAINE 30 ML, lidocaine HCL 15 ML MM (18:03)
== END 2025-01-08 18:07 | disposition home or self-care (01) ==
PROVIDERS: Emergency Provider Emergency Medicine; PCP Nurse Practitioner
DX: R51.9 Headache, unspecified (principal); K08.109 Complete loss of teeth, unspecified cause, unspecified class
CPT/HCPCS: 99284